=== PATIENT | male | born 1940 | race Caucasian/White ===

== ENCOUNTER → 2019-12-19 11:16 | Outpatient (BNVA) | payer MEDICARE, SELFPAY | PROVIDERS: Visit Provider Urology | DX: N40.1 Benign prostatic hyperplasia with lower urinary tract symptoms (principal); R39.15 Urgency of urination; Z79.899 Other long term (current) drug therapy | CPT/HCPCS: 51798; 99204 ==

== ENCOUNTER 2020-02-07 10:53 | Inpatient (IN) | payer MEDICARE, SELFPAY ==
[2020-02-07] VITALS (10 sets, daily range): BP systolic 104–126; BP diastolic 56–69; PULSE 88–109; RESP 16–20; TEMP 36.3–36.9; O2SAT 97–98; BMI 24.0
--- NOTE | 2020-02-07 | ECG_ITS ---
Test Reason : CHEST PAIN Blood Pressure : / mmHG Vent. Rate : 109 BPM Atrial Rate : 109 BPM P-R Int : 132 ms QRS Dur : 132 ms QT Int : 362 ms P-R-T Axes : 050 -31 096 degrees QTc Int : 487 ms Sinus tachycardia Left axis deviation Left ventricular hypertrophy with QRS widening and repolarization abnormality Abnormal ECG When compared with ECG of 15-NOV-2018 15:11, No significant change was found Referred By: Liv Kirby Electronically Signed By:COLE KINNEY MD
--- NOTE | 2020-02-07 11:04 | XR_ITS ---
EXAMINATION: XR CHEST CLINICAL INFORMATION: COVID symptoms. COMPARISON: 09/20/2019 chest radiographs. TECHNIQUE: Frontal view of the chest was obtained. FINDINGS: Low lung volumes limit evaluation. Increased markings are seen in the mid and lower lung mina. The heart and mediastinal structures are unremarkable. XR/XR chest 1V IMPRESSION: Regional increased markings in the mid and lower lung mina are nonspecific. This could represent atelectasis and/or infiltrates.
--- NOTE | 2020-02-07 11:34 | CT_ITS ---
EXAMINATION: CT HEAD WITHOUT CONTRAST CLINICAL INFORMATION: Fall. Confusion. COMPARISON: Previous head CT November 2018 TECHNIQUE: Contiguous axial imaging was performed from the skull base to vertex without intravenous administration of contrast. This CT examination was performed using dose optimization techniques as appropriate, variously including the following: *Automated exposure control *Adjustment of mA and/or kV according to patient size (this includes techniques or standardized protocols for targeted exams where dose is matched to indication/reason for exam; i.e. extremities or head) *Use of iterative reconstruction technique DLP: 671 mGy-cm FINDINGS: There is no evidence of an extra-axial collection. There is no evidence of intra-axial or extra-axial hemorrhage. The ventricles and extra-axial CSF spaces are prominent suggestive of generalized atrophy. There is nonspecific periventricular white matter disease. No mass, mass effect or infarct is seen. No skull fracture is seen. Visualized paranasal sinuses, mastoid air cells and middle ears are clear. CT/CT head/brain wo con IMPRESSION: No acute findings. Generalized atrophy and nonspecific periventricular white matter disease.
--- NOTE | 2020-02-07 11:45 | ED.GENADULT ---
HPI - General Adult General Chief complaint: General Medical Stated complaint: covid symptoms Time Seen by Provider: 02/07/20 11:04 Source: patient Mode of arrival: ambulatory Limitations: language barrier and altered mental status History of Present Illness HPI narrative: 79 y/o male with history of BPH, HTN, and GERD presenting from home with generalized fatigue and dizziness for the last 2 days. History obtained with nursing staff development coordinator but was limited due to patient being unreliable and answering questions differently when asked twice. He states his [employer]ANT [employer]ER sent him to the hospital today because I was off and not acting like myself. He reports generalized weakness and admits to significant decreased PO intake.He reports having a fall two weeks ago and an episode of black vomitus 2 weeks ago. Denies abdominal pain, fever, chills, chest pain, SOB, urinary symptoms. MD complaint: fatigue Related Data Home Medications Medication Instructions Recorded Confirmed acetaminophen 500 mg tablet 1,000 mg PO Q6H PRN 12/14/19 albuterol sulfate mg INHALATION 12/14/19 albuterol sulfate 90 mcg/actuation 2 puff PO Q4-6H PRN 12/14/19 aerosol inhaler atorvastatin 20 mg tablet 20 mg PO DAILY 12/14/19 azithromycin 250 mg tablet mg PO DIRECTED 12/14/19 benztropine 0.5 mg tablet 0 mg PO 12/14/19 buprenorphine 2 mg-naloxone 0.5 mg 2 mg SUBLINGUAL DAILY 12/14/19 sublingual film buprenorphine 8 mg-naloxone 2 mg 20 mg SUBLINGUAL DAILY 12/14/19 sublingual film cyanocobalamin (vitamin B-12) 1,000 mcg PO DAILY 12/14/19 1,000 mcg tablet docusate sodium 100 mg capsule 100 mg PO BID 12/14/19 fluticasone 250 mcg-salmeterol 50 1 ea INHALATION Q12H 12/14/19 mcg/dose blistr powdr for inhalation haloperidol lactate 2 mg/mL oral mg PO 12/14/19 concentrate multivitamin 1 tab PO DAILY 12/14/19 naloxone 4 mg/actuation nasal spray 0 spray INTRANASAL 12/14/19 omeprazole 40 mg capsule,delayed 40 mg PO DAILY 12/14/19 release prednisone 20 mg tablet 20 mg PO BID 12/14/19 prednisone 50 mg tablet 50 mg PO DAILY 12/14/19 quetiapine 100 mg tablet 300 mg PO Q OTHER DAY PRN 12/14/19 quetiapine 50 mg tablet 0 mg PO 12/14/19 sertraline 100 mg tablet 0 mg PO 12/14/19 tamsulosin 0.4 mg capsule 0.4 mg PO DAILY 12/14/19 trazodone 100 mg tablet 100 mg PO BEDTIME 12/14/19 umeclidinium 62.5 mcg/actuation 0 inh INHALATION 12/14/19 blister powder for inhalation Previous Rx's Medication Instructions Recorded oxybutynin chloride 5 mg 5 mg PO DAILY 30 Days #30 tab 12/31/19 tablet,extended release 24 hr Allergies Allergy/AdvReac Type Severity Reaction Status Date / Time No Known Allergies Allergy Unverified 11/28/19 15:33 Review of Systems Review of Systems: Constitutional: No Fever, No Chills ENT/Mouth: No sore throat, No Rhinorrhea, No Swallowing Difficulty Eyes: No Eye Pain, No Swelling, No Redness Cardiovascular: No Chest Pain, No SOB, No Orthopnea, No Edema Respiratory: + Cough, No Sputum, No Wheezing, No dyspnea Gastrointestinal: No Nausea, + Vomiting, No Diarrhea, No abdominal Pain Genitourinary: No Dysuria, No Urinary Frequency, No Hematuria Musculoskeletal: No joint pain, + Myalgias Skin: No Skin Lesions, No rash Neuro: + Weakness, No Numbness, + Dizziness, No Headache Psych: No Anxiety/Panic, No Depression Heme/Lymph: No Bruising, No Lymphadenopathy Endocrine: No Polyuria, No Polydipsia PMFSH Past Medical History Attestation statement: The following information was validated with the patient. Medical History GERD (gastroesophageal reflux disease) HTN (hypertension) Surgical History History of prostate biopsy Family History Family History (Updated 12/14/19 @ 11:38 by ROB Rodriguez) Father No problems noted. Mother No problems noted. Social History Social History Alcohol intake: never Smoking Status: Current some day smoker Use of substances other than those prescribed or required for medical reasons: No Advance Directives: No Advance Directives Information Provided: No Physical Exam Vital Signs: Vital Signs: Last Vital Signs Temp 98.3 F 02/07/20 15:31 Pulse 92 02/07/20 15:31 Resp 18 02/07/20 15:31 BP 104/56 L 02/07/20 15:31 Pulse Ox 97 02/07/20 15:31 Body Mass Index 24.0 Appearance: Alert, frail elderly male, cachetic with temporal wasting. Jaundiced. No acute distress. Eyes: Pupils equal, round and reactive to light. Bilateral scleral icterus ENT: dry mucus membranes, tongue extremely dry Neck: supraclavicular cachexia, Neck supple. CVS: tachycardic, regular rhythm. Pulses normal. Respiratory: No respiratory distress. Breath sounds normal. Chest wall frail. Abdomen: Softly distended, guarding however nontender. +BS x4. hepatomegaly Skin: Skin warm and dry. Jaundiced skin color. Extremities: No lower extremity edema. Neuro: Oriented X 2. generalized weakness, non-focal. tongue deviates to the right. Course Course Course Narrative: 79 y/o male presenting with painless jaundice highly concerning for biliary or pancreatic tumor. He is tachycardic on arrival, afebrile and does not appear septic. Low suspicion for cholangitis. Given he is a very poor historian, will proceed with CT head, CT abd/pelvis as well as full metabolic workup. Reevaluation(s) Reevaluation #1: Labs show elevation in all LFT's consistent with obstructive picture. Concern for underlying malignancy. CT scan still pending. Orthostatics negative. Given 2L IVF for signs of dehydration on exam. Continues to deny pain. Will require admission. Reevaluation #2: CT scan shows 1. Cholelithiasis. Intrahepatic and extrahepatic ductal dilatation, common duct 1.4 cm. No visible ductal calculus. Trace pericholecystic fluid. 1 cm [place] hepatis node. 2. Atrophic pancreas. No pancreatic ductal distention. 3. Enlarged nodular prostate. 4. 6 cm sliding hiatal hernia. Small bilateral renal cysts, largest 2.2 cm. Doubt gallstones causing obstruction given no pain. He will require further evaluation with either abd U/S or more likely ERCP vs MRCP. Spoke with Dr. Berger from GI who is going to review the case and make recommendations. Spoke with hospitalist who will admit. Medical Decision Making Lab Data Result diagrams: 02/07/20 11:43 02/07/20 11:43 Labs: Lab Results 02/07/20 02/07/20 02/07/20 Range/Units 11:43 11:43 11:43 WBC 8.2 (4.8-10.8) X10*3/uL RBC 4.11 L (4.60-5.80) X10*6/uL Hgb 11.8 L (14.0-18.0) g/dl Hct 34.5 L (42-52) % MCV 83.9 (80-98) fL MCH 28.7 (27.0-33.0) pg MCHC 34.2 (31.0-36.0) g/dl RDW 16.0 (11.0-16.0) % Plt Count 197 (160-400) X10*3/uL MPV 11.7 (9.4-12.4) fL Immature Gran % (Auto) 1.6 H (0.0-0.4) % Neut % (Auto) 77.4 H (45-73) % Lymph % (Auto) 12.1 L (20-40) % [place] % (Auto) 6.9 (2-11) % Eos % (Auto) 2.0 (0-4) % Baso % (Auto) 0.0 (0-2) % Lymph # (Auto) 1.0 L (1.2-4.9) X10*3/uL [place] # (Auto) 0.6 (0.1-1.2) X10*3/uL Eos # (Auto) 0.2 (0.0-0.4) X10*3/uL Baso # (Auto) 0.0 (0.0-0.2) X10*3/uL Abs Immat Gran (auto) 0.13 H (0.00-0.03) X10*3/uL Absolute Neuts (auto) 6.3 (2.0-8.3) X10*3/uL Absolute Nucleated RBC 0.000 (0.0-0.012) X10*3/uL Nucleated RBC % (auto) 0.0 (0.0-0.2) /100WBC PT (10.8-13.0) SEC INR (0.9-1.1) APTT (24.1-38.0) SEC Hold Blue Top SEE NOTE Sodium (135-145) mmol/L Potassium (3.3-5.1) mmol/l Chloride (96-108) mmol/L Carbon Dioxide (22-29) mmol/L Anion Gap (12-20) BUN (9-16) mg/dL Creatinine (0.5-1.4) mg/dL Estim Creat Clear Calc Estimated GFR Random Glucose (60-115) mg/dL Lactic Acid (0.5-2.0) mmol/L Calcium (8.4-10.2) mg/dL Magnesium (1.6-2.6) mg/dL Total Bilirubin (0.0-1.0) mg/dL Direct Bilirubin (0.0-0.5) mg/dL AST (5-37) U/L ALT (0-40) U/L Alkaline Phosphatase (39-117) U/L Troponin I High Sens (<3.5-35.0) ng/L Total Protein (6.5-8.0) g/dL Albumin (3.5-5.0) g/dL Coronavirus (PCR) NEGATIVE (Negative) Influenza Type A (PCR) NEGATIVE (Negative) Influenza Type B (PCR) NEGATIVE (Negative) RSV RNA Qual (PCR) NEGATIVE (Negative) 02/07/20 02/07/20 02/07/20 Range/Units 11:43 11:43 11:43 WBC (4.8-10.8) X10*3/uL RBC (4.60-5.80) X10*6/uL Hgb (14.0-18.0) g/dl Hct (42-52) % MCV (80-98) fL MCH (27.0-33.0) pg MCHC (31.0-36.0) g/dl RDW (11.0-16.0) % Plt Count (160-400) X10*3/uL MPV (9.4-12.4) fL Immature Gran % (Auto) (0.0-0.4) % Neut % (Auto) (45-73) % Lymph % (Auto) (20-40) % [place] % (Auto) (2-11) % Eos % (Auto) (0-4) % Baso % (Auto) (0-2) % Lymph # (Auto) (1.2-4.9) X10*3/uL [place] # (Auto) (0.1-1.2) X10*3/uL Eos # (Auto) (0.0-0.4) X10*3/uL Baso # (Auto) (0.0-0.2) X10*3/uL Abs Immat Gran (auto) (0.00-0.03) X10*3/uL Absolute Neuts (auto) (2.0-8.3) X10*3/uL Absolute Nucleated RBC (0.0-0.012) X10*3/uL Nucleated RBC % (auto) (0.0-0.2) /100WBC PT 19.5 H (10.8-13.0) SEC INR 1.6 H (0.9-1.1) APTT 38.4 H (24.1-38.0) SEC Hold Blue Top Sodium 131 L (135-145) mmol/L Potassium 4.2 (3.3-5.1) mmol/l Chloride 98 (96-108) mmol/L Carbon Dioxide 20 L (22-29) mmol/L Anion Gap 17 (12-20) BUN 24 H (9-16) mg/dL Creatinine 1.05 (0.5-1.4) mg/dL Estim Creat Clear Calc 45.9 Estimated GFR > 60 Random Glucose 94 (60-115) mg/dL Lactic Acid 0.9 (0.5-2.0) mmol/L Calcium 8.3 L (8.4-10.2) mg/dL Magnesium 2.1 (1.6-2.6) mg/dL Total Bilirubin 10.9 H (0.0-1.0) mg/dL Direct Bilirubin 8.4 H (0.0-0.5) mg/dL AST 83 H (5-37) U/L ALT 49 H (0-40) U/L Alkaline Phosphatase 670 H (39-117) U/L Troponin I High Sens (<3.5-35.0) ng/L Total Protein 5.7 L (6.5-8.0) g/dL Albumin 2.9 L (3.5-5.0) g/dL Coronavirus (PCR) (Negative) Influenza Type A (PCR) (Negative) Influenza Type B (PCR) (Negative) RSV RNA Qual (PCR) (Negative) 11/27/20 Range/Units 11:43 WBC (4.8-10.8) X10*3/uL RBC (4.60-5.80) X10*6/uL Hgb (14.0-18.0) g/dl Hct (42-52) % MCV (80-98) fL MCH (27.0-33.0) pg MCHC (31.0-36.0) g/dl RDW (11.0-16.0) % Plt Count (160-400) X10*3/uL MPV (9.4-12.4) fL Immature Gran % (Auto) (0.0-0.4) % Neut % (Auto) (45-73) % Lymph % (Auto) (20-40) % [place] % (Auto) (2-11) % Eos % (Auto) (0-4) % Baso % (Auto) (0-2) % Lymph # (Auto) (1.2-4.9) X10*3/uL [place] # (Auto) (0.1-1.2) X10*3/uL Eos # (Auto) (0.0-0.4) X10*3/uL Baso # (Auto) (0.0-0.2) X10*3/uL Abs Immat Gran (auto) (0.00-0.03) X10*3/uL Absolute Neuts (auto) (2.0-8.3) X10*3/uL Absolute Nucleated RBC (0.0-0.012) X10*3/uL Nucleated RBC % (auto) (0.0-0.2) /100WBC PT (10.8-13.0) SEC INR (0.9-1.1) APTT (24.1-38.0) SEC Hold Blue Top Sodium (135-145) mmol/L Potassium (3.3-5.1) mmol/l Chloride (96-108) mmol/L Carbon Dioxide (22-29) mmol/L Anion Gap (12-20) BUN (9-16) mg/dL Creatinine (0.5-1.4) mg/dL Estim Creat Clear Calc Estimated GFR Random Glucose (60-115) mg/dL Lactic Acid (0.5-2.0) mmol/L Calcium (8.4-10.2) mg/dL Magnesium (1.6-2.6) mg/dL Total Bilirubin (0.0-1.0) mg/dL Direct Bilirubin (0.0-0.5) mg/dL AST (5-37) U/L ALT (0-40) U/L Alkaline Phosphatase (39-117) U/L Troponin I High Sens < 3.5 (<3.5-35.0) ng/L Total Protein (6.5-8.0) g/dL Albumin (3.5-5.0) g/dL Coronavirus (PCR) (Negative) Influenza Type A (PCR) (Negative) Influenza Type B (PCR) (Negative) RSV RNA Qual (PCR) (Negative) ECG Data Attestation: I personally reviewed and interpreted this ECG as follows: Interpretation: HR 109, sinus tachycardia, normal [place] interval, normal QTc Discharge Plan Discharge Clinical Impression: Painless jaundice Patient Disposition: Admitted As Inpatient
[2020-02-07] MEDS: 0.9 % Sodium Chloride 1,000 ML 999 ML IVCONT ×2 (11:48→14:20)
--- NOTE | 2020-02-07 11:48 | PC.NURSE ---
iv inserted, labs, drawn, ekg performed, campus monitor applied, nsr-sinus tach 90s-100, pt skin/eyes jaundice, covid swab performed, will continue to monitor.
[2020-02-07 11:58] LABS: MANUAL DIFF FLAG NO
[2020-02-07 12:01] LABS: Eosinophils Absolute Auto 0.2 X10*3/uL (0.0-0.4); Hematocrit 34.5 % (42-52); Hemoglobin 11.8 g/dl (14.0-18.0); Imm Gran Abs Auto 0.13 X10*3/uL (0.00-0.03); Imm Gran Pct Auto 1.6 % (0.0-0.4); Lymphocytes Percent Auto 12.1 % (20-40); Mean Corpuscular HGB Conc 34.2 g/dl (31.0-36.0); Mean Corpuscular Hemoglobin 28.7 pg (27.0-33.0); Mean Corpuscular Volume 83.9 fL (80-98); Mean Platelet Volume 11.7 fL (9.4-12.4); Monocytes Absolute Auto 0.6 X10*3/uL (0.1-1.2); Monocytes Percent Auto 6.9 % (2-11); Neutrophils Absolute Auto 6.3 X10*3/uL (2.0-8.3); Neutrophils Percent Auto 77.4 % (45-73); Platelet Count 197 X10*3/uL (160-400); Red Blood Count 4.11 X10*6/uL (4.60-5.80); White Blood Count 8.2 X10*3/uL (4.8-10.8)
[2020-02-07 12:03] LABS: INTERNATIONAL NORM RATIO 1.6 (0.9-1.1); Prothrombin Time 19.5 SEC (10.8-13.0)
[2020-02-07 12:06] LABS: Partial Thromboplastin Time 38.4 SEC (24.1-38.0)
[2020-02-07 12:15] LABS: Lactic Acid 0.9 mmol/L (0.5-2.0)
[2020-02-07 12:22] LABS: Alanine Aminotransferase 49 U/L (0-40); Albumin Level 2.9 g/dL (3.5-5.0); Alkaline Phosphatase 670 U/L (39-117); Anion Gap 17 (12-20); Aspartate Amino Transferase 83 U/L (5-37); Bilirubin Direct 8.4 mg/dL (0.0-0.5); Bilirubin Total 10.9 mg/dL (0.0-1.0); Blood Urea Nitrogen 24 mg/dL (9-16); Calcium 8.3 mg/dL (8.4-10.2); Carbon Dioxide 20 mmol/L (22-29); Chloride 98 mmol/L (96-108); Creatinine Clr Calc Pharmacy 45.9; Estimated Glomerular Filt Rate > 60; Glucose Random 94 mg/dL (60-115); Magnesium 2.1 mg/dL (1.6-2.6); Potassium 4.2 mmol/l (3.3-5.1); Sodium 131 mmol/L (135-145); Total Protein 5.7 g/dL (6.5-8.0)
[2020-02-07 12:26] LABS: Troponin-I High Sensitivity < 3.5 ng/L (<3.5-35.0)
[2020-02-07 12:55] LABS: Influenza A PCR NEGATIVE (Negative); Influenza B PCR NEGATIVE (Negative); Resp Syncy Virus RNA Qual PCR NEGATIVE (Negative); SARS COV2 PCR INHOUSE NEGATIVE (Negative)
--- NOTE | 2020-02-07 13:48 | CT_ITS ---
EXAMINATION: CT ABDOMEN AND PELVIS WITH CONTRAST CLINICAL INFORMATION: Pain left jaundice COMPARISON: CT abdomen and pelvis noncontrast 08/16/2018 TECHNIQUE: Multidetector volumetric images were obtained from the superior aspect of the liver through the pubic symphysis following administration 85 mL of Omnipaque 350 intravenous contrast. Sagittal and coronal reformatted images were obtained on the technologist's workstation. Oral contrast: No This CT examination was performed using dose optimization techniques as appropriate, variously including the following: *Automated exposure control *Adjustment of mA and/or kV according to patient size (this includes techniques or standardized protocols for targeted exams where dose is matched to indication/reason for exam; i.e. extremities or head) *Use of iterative reconstruction technique DLP: 464 mGy-cm FINDINGS: LUNG BASES: There is mild accentuated subpleural reticular markings. Disc atelectasis left anterolateral base. No airspace consolidation or effusion. LIVER, GALLBLADDER, AND BILIARY TREE: The liver is normal in size and smooth in contour and uniform in parenchymal attenuation. There is no hepatic parenchymal lesion. The gallbladder is mildly dilated, measuring 5.3 cm in diameter. There is no focal wall thickening. At least 4 gallstones are present, largest 1.3 cm. There is some trace pericholecystic fluid between the gallbladder and liver. There is intrahepatic and extrahepatic biliary ductal dilatation. The common duct measures 1.4 cm in caliber. There is no visible ductal calculus, stricture, extrinsic compression, or duct displacement. PANCREAS: Atrophic pancreas. No pancreatic ductal distention. No peripancreatic inflammatory changes. SPLEEN: Normal in size and homogeneous. There are 2 splenules left upper quadrant again seen, larger only 1.2 cm. ADRENAL GLANDS: Unremarkable. KIDNEYS AND URETERS: No hydronephrosis, hydroureter, calculi, or perinephric stranding. The kidneys are normal in size and enhance symmetrically. Again, there are scattered bilateral renal cysts, largest left lower pole, 2.2 cm and water attenuation, -1 HU. BLADDER: Unremarkable. GASTROINTESTINAL TRACT: 6 cm sliding hiatal hernia. Moderate stool throughout the colon. No bowel obstruction or focal inflammatory changes in the bowel or mesentery. Trace fluid between gallbladder and liver. Otherwise no ascites. ABDOMINAL WALL: No significant hernia is appreciated. LYMPH NODES: 1 cm [place] hepatis node adjacent to anterior aspect gallbladder, series 8 image 22 no retroperitoneal or pelvic lymphadenopathy. VASCULAR: Unremarkable. PELVIC VISCERA: Enlarged nodular prostate measuring approximately 6.7 x 5.9 x 6.9 cm with uplifting bladder base. Seminal vesicles unremarkable. OSSEOUS STRUCTURES: Unremarkable. CT/CT abdomen pelvis w con IMPRESSION: 1. Cholelithiasis. Intrahepatic and extrahepatic ductal dilatation, common duct 1.4 cm. No visible ductal calculus. Trace pericholecystic fluid. 1 cm [place] hepatis node. 2. Atrophic pancreas. No pancreatic ductal distention. 3. Enlarged nodular prostate. 4. 6 cm sliding hiatal hernia. Small bilateral renal cysts, largest 2.2 cm.
--- NOTE | 2020-02-07 14:18 | PC.NURSE ---
patient alert, hat and cap opener ns/st 90-110, vitals stable, orthostats performed, ivf to run per order, will continue to monitor.
--- NOTE | 2020-02-07 14:21 | PC.NURSE ---
pt to [facility] [place] ct scan
[2020-02-07] MEDS: iohexoL 350 MG/ML 100 ML INFUS..BTL IV (14:48)
--- NOTE | 2020-02-07 15:33 | PC.NURSE ---
patient awake/alert, vehicle monitor technician nsr 90s, vss, will continue to monitor.
[2020-02-07 17:08] LABS: Glucose Urine UA NEG (NEG); Leukocyte Esterase Urine NEG (NEG); Nitrite Urine NEG (NEG); PH 6.5 (5.0-8.0); Specific Gravity - Urine <= 1.005 (1.005-1.025); Urine Blood TRACE (NEG); Urine Ketones 5 MG/DL (NEG); Urine Protein NEG (NEG-TRACE)
--- NOTE | 2020-02-07 17:15 | P.HPHOSP_ITS ---
History of Present Illness Date of Service: 02/07/20 <YUNIOR Hylton - Last Filed: 02/07/20 18:29> Chief Complaint: weakness <YUNIOR Hylton - Last Filed: 02/07/20 18:29> this is a 79-year-old Uzbek-speaking male who presented to the emergency department with complaints of weakness. The triage note indicates he reported being tired and weak. He initially stated that he had fallen 2 weeks prior as well. Then said he fell yesterday and again changed his story and said that he did not fall at all. In general the patient is a vague historian. During my evaluation he reported no pain, weakness or any other symptoms. He was noted to be jaundiced but could not tell how long that has been going on. He did report dark urine for the past 1 week. For this reason he had called his primary care physician who reportedly prescribed a medication but he cannot recall the medication name or what it was for. workup in the emergency department revealed markedly elevated LFTs with total bilirubin 10.9, direct bilirubin 8.4, alkaline phosphatase 670, AST 83, ALT 49. Previous LFTs from [address] scan of the abdomen showed cholelithiasis, intrahepatic and extrahepatic ductal dilatation. Gi recommended admission and MRCP for further evaluation. <YUNIOR Hylton - Last Filed: 02/07/20 18:29> Review of Systems Review of Systems: Yes all other systems are reviewed and are negative <YUNIOR Hylton Last Filed: 02/07/20 18:29> Constitutional: Constitutional: Denies chills and Denies fever(s) <YUNIOR Hylton Last Filed: 02/07/20 18:29> Cardiovascular: Cardiovascular: Denies chest pain and Denies dyspnea <YUNIOR Hylton Last Filed: 02/07/20 18:29> Respiratory: Respiratory: Denies cough and Denies dyspnea <YUNIOR Hylton Last Filed: 02/07/20 18:29> Gastrointestinal: Gastrointestinal: Denies abdominal pain, Denies diarrhea, Denies nausea and Denies vomiting <YUNIOR Hylton Last Filed: 02/07/20 18:29> FORMERLY [facility], [facility] Medical History: Medical History Asthma Depression Esophagitis Gallstones Gastritis GERD (gastroesophageal reflux disease) HTN (hypertension) Smoker Substance abuse <YUNIOR Hylton - Last Filed: 02/07/20 18:29> Functional capacity: uses cane/walker <YUNIOR Hylton - Last Filed: 02/07/20 18:29> Family History: Family History Father No problems noted. Mother No problems noted. <YUNIOR Hylton - Last Filed: 02/07/20 18:29> Pertinent family history: HTN <YUNIOR Hylton - Last Filed: 02/07/20 18:29> Surgical History: Surgical History History of prostate biopsy <YUNIOR Hylton - Last Filed: 02/07/20 18:29> Social History: Social History Household Members: None Housing: House Alcohol intake: never Smoking Status: Current some day smoker Tobacco Type: Cigarette Second Hand Smoke Exposure: Yes service: No Current occupational status: unemployed <YUNIOR Hylton - Last Filed: 02/07/20 18:29> Meds Allergies/Adverse reactions: Allergies Allergy/AdvReac Type Severity Reaction Status Date / Time No Known Allergies Allergy Unverified 11/28/19 15:33 <YUNIOR Hylton - Last Filed: 02/07/20 18:29> Home medications: Home Medications Medication Instructions Recorded Confirmed Type albuterol sulfate 2.5 mg INHALATION QID PRN 12/14/19 02/07/20 History albuterol sulfate 90 mcg/actuation 2 puff PO Q4-6H PRN 12/14/19 02/07/20 History aerosol inhaler atorvastatin 20 mg tablet 20 mg PO DAILY 12/14/19 02/07/20 History benztropine 0.5 mg tablet 0.5 mg PO BEDTIME 12/14/19 02/07/20 History buprenorphine 8 mg-naloxone 2 mg 2 film SUBLINGUAL DAILY 12/14/19 02/07/20 History sublingual film cyanocobalamin (vitamin B-12) 1,000 mcg PO DAILY 12/14/19 02/07/20 History 1,000 mcg tablet docusate sodium 100 mg capsule 100 mg PO BID 12/14/19 02/07/20 History fluticasone 250 mcg-salmeterol 50 1 ea INHALATION Q12H 12/14/19 02/07/20 History mcg/dose blistr powdr for inhalation haloperidol lactate 2 mg/mL oral 1 mg PO BEDTIME 12/14/19 02/07/20 History concentrate multivitamin 1 tab PO DAILY 12/14/19 02/07/20 History naloxone 4 mg/actuation nasal spray 1 spray INTRANASAL ONCE PRN 12/14/19 02/07/20 History omeprazole 40 mg capsule,delayed 40 mg PO DAILY 12/14/19 02/07/20 History release quetiapine 100 mg tablet 150 mg PO BEDTIME 12/14/19 02/07/20 History quetiapine 50 mg tablet 50 mg PO BID@0900,1700 12/14/19 02/07/20 History sertraline 100 mg tablet 100 mg PO DAILY 12/14/19 02/07/20 History tamsulosin 0.4 mg capsule 0.4 mg PO DAILY 12/14/19 02/07/20 History trazodone 100 mg tablet 100 mg PO BEDTIME 12/14/19 02/07/20 History umeclidinium 62.5 mcg/actuation 1 inh INHALATION DAILY 12/14/19 02/07/20 History blister powder for inhalation <YUNIOR Hylton - Last Filed: 02/07/20 18:29> Physical Exam Vital Signs and Narrative: Vital Signs: Last Vital Signs Temp 98.3 F 02/07/20 15:31 Pulse 92 02/07/20 15:31 Resp 18 02/07/20 15:31 BP 104/56 L 02/07/20 15:31 Pulse Ox 97 02/07/20 15:31 Body Mass Index 24.0 <YUNIOR Hylton - Last Filed: 02/07/20 18:29> Const: Nutritional Appearance: well nourished <YUNIOR Hylton - Last Filed: 02/07/20 18:29> Orientation/consciousness: patient oriented x3 <YUNIOR Hylton - Last Filed: 02/07/20 18:29> HENMT: Head: Yes normocephalic and Yes atraumatic <YUNIOR Hylton - Last Filed: 02/07/20 18:29> Eyes: Other: scleral icterus <YUNIOR Hylton - Last Filed: 02/07/20 18:29> Chest: Chest palpation & inspection: normal inspection of the chest <YUNIOR Hylton - Last Filed: 02/07/20 18:29> Resp: Effort & Inspection: normal respiratory effort and no respiratory distress <YUNIOR Hylton - Last Filed: 02/07/20 18:29> Auscultation: clear to auscultation bilaterally <YUNIOR Hylton - Last Filed: 02/07/20 18:29> Cardio: Rate: regular rate <YUNIOR Hylton - Last Filed: 02/07/20 18:29> Rhythm: regular rhythm <YUNIOR Hylton - Last Filed: 02/07/20 18:29> GI: Palpation (GI): Soft to palpation and nontender <YUNIOR Hylton - Last Filed: 02/07/20 18:29> Skin: General skin exam: jaundice <YUNIOR Hylton - Last Filed: 02/07/20 18:29> Neuro: General: patient oriented x3 <YUNIOR Hylton - Last Filed: 02/07/20 18:29> Cranial nerves: Yes CN's II-XII intact bilaterally and Yes Bilaterally intact EOM present <YUNIOR Hytlon - Last Filed: 02/07/20 18:29> Extrem: General: Yes normal to inspection <YUNIOR Hylton - Last Filed: 02/07/20 18:29> Results Labs CBC and Chem 7: : 02/10/20 06:07 02/12/20 06:17 <YUNIOR Hylton - Last Filed: 02/07/20 18:29> Labs: Laboratory Results - last 24 hr 02/07/20 02/07/20 02/07/20 11:43 11:43 11:43 MCV 83.9 MCH 28.7 MCHC 34.2 RDW 16.0 Plt Count 197 MPV 11.7 Immature Gran % (Auto) 1.6 H Neut % (Auto) 77.4 H Lymph % (Auto) 12.1 L Livingston % (Auto) 6.9 Eos % (Auto) 2.0 Baso % (Auto) 0.0 Lymph # (Auto) 1.0 L Livingston # (Auto) 0.6 Eos # (Auto) 0.2 Baso # (Auto) 0.0 Abs Immat Gran (auto) 0.13 H Absolute Neuts (auto) 6.3 Absolute Nucleated RBC 0.000 Nucleated RBC % (auto) 0.0 PT INR APTT Hold Blue Top SEE NOTE Anion Gap Estim Creat Clear Calc Estimated GFR Random Glucose Lactic Acid Calcium Magnesium Total Bilirubin Direct Bilirubin AST ALT Alkaline Phosphatase Troponin I High Sens Total Protein Albumin Coronavirus (PCR) NEGATIVE Influenza Type A (PCR) NEGATIVE Influenza Type B (PCR) NEGATIVE RSV RNA Qual (PCR) NEGATIVE 02/07/20 02/07/20 02/07/20 11:43 11:43 11:43 MCV MCH MCHC RDW Plt Count MPV Immature Gran % (Auto) Neut % (Auto) Lymph % (Auto) Livingston % (Auto) Eos % (Auto) Baso % (Auto) Lymph # (Auto) Livingston # (Auto) Eos # (Auto) Baso # (Auto) Abs Immat Gran (auto) Absolute Neuts (auto) Absolute Nucleated RBC Nucleated RBC % (auto) PT 19.5 H INR 1.6 H APTT 38.4 H Hold Blue Top Anion Gap 17 Estim Creat Clear Calc 45.9 Estimated GFR > 60 Random Glucose 94 Lactic Acid 0.9 Calcium 8.3 L Magnesium 2.1 Total Bilirubin 10.9 H Direct Bilirubin 8.4 H AST 83 H ALT 49 H Alkaline Phosphatase 670 H Troponin I High Sens Total Protein 5.7 L Albumin 2.9 L Coronavirus (PCR) Influenza Type A (PCR) Influenza Type B (PCR) RSV RNA Qual (PCR) 02/07/20 11:43 MCV MCH MCHC RDW Plt Count MPV Immature Gran % (Auto) Neut % (Auto) Lymph % (Auto) Livingston % (Auto) Eos % (Auto) Baso % (Auto) Lymph # (Auto) Livingston # (Auto) Eos # (Auto) Baso # (Auto) Abs Immat Gran (auto) Absolute Neuts (auto) Absolute Nucleated RBC Nucleated RBC % (auto) PT INR APTT Hold Blue Top Anion Gap Estim Creat Clear Calc Estimated GFR Random Glucose Lactic Acid Calcium Magnesium Total Bilirubin Direct Bilirubin AST ALT Alkaline Phosphatase Troponin I High Sens < 3.5 Total Protein Albumin Coronavirus (PCR) Influenza Type A (PCR) Influenza Type B (PCR) RSV RNA Qual (PCR) <YUNIOR Hylton - Last Filed: 02/07/20 18:29> Imaging Radiologist's Impressions: Impressions Chest X-Ray 02/07/20 11:04 IMPRESSION: Regional increased markings in the mid and lower lung mina are nonspecific. This could represent atelectasis and/or infiltrates. Head CT 02/07/20 11:34 IMPRESSION: No acute findings. Generalized atrophy and nonspecific periventricular white matter disease. Abdomen/Pelvis CT 02/07/20 13:48 IMPRESSION: 1. Cholelithiasis. Intrahepatic and extrahepatic ductal dilatation, common duct 1.4 cm. No visible ductal calculus. Trace pericholecystic fluid. 1 cm botson hepatis node. 2. Atrophic pancreas. No pancreatic ductal distention. 3. Enlarged nodular prostate. 4. 6 cm sliding hiatal hernia. Small bilateral renal cysts, largest 2.2 cm. <YUNIOR Hylton - Last Filed: 02/07/20 18:29> Assessment and Plan (1) Obstructive jaundice: Status: Acute <YUNIOR Hylton - Last Filed: 02/07/20 18:29> this is a 79-year-old Uzbek-speaking male with history of substance abuse, acid reflux who presents to the emergency department with weakness found to have obstructive jaundice obstructive jaundice Cholelithiasis. Intrahepatic and extrahepatic ductal dilatation, common duct 1.4 cm. No visable ductal stone. MRCP for further characterization GI consult follow LFTs DVT ppx - lovenox code status - full code This case was discussed with Dr. Richter <YUNIOR Hytlon - Last Filed: 02/07/20 18:29>
[2020-02-07 17:21] LABS: Appearance Urine CLEAR; Color Urine AMBER
[2020-02-07 17:22] LABS: Bacteria Urine TRACE /LPF; RBC Urine 0-2 /HPF (0); Squamous Epithelial Cell Urine TRACE /LPF; WBC Urine 0-2 /HPF (0-4)
--- NOTE | 2020-02-07 17:43 | PC.NURSE ---
called floor to give report, nurse will call ed back shortly
--- NOTE | 2020-02-07 17:47 | PM.EVENT ---
Event Note Date of Service: 02/07/20 Event Note: Admission note The patient was seen and evaluated with YUNIOR Rdz. I agree with her note, assessment and plan with the following. in summary, a 79 years old male with PMH X of asthma, esophagitis, GERD, HTN and history of substance abuse who presents to the hospital complaining of generalized weakness and dark urine. The patient is poor historian and the story was not clear but seems like he noticed dark urine for almost a week or so associated with increased weakness. he also reported skin change to yellowish discoloration over the same. Or so. Denies any fever, chills, abdominal pain, nausea or vomiting or dark stools. Obstructive jaundice Bilirubin of 10, direct of almost [address] scan of the abdomen showed cholelithiasis with intra and extrahepatic duct dilatation. No clear stone seen in CBD likely secondary to obstruction, stenosis, mass To do MRCP in the morning GI evaluated in the morning Rest of evaluations by PA note.
--- NOTE | 2020-02-07 18:06 | PC.NURSE ---
report called to floor, tech to bring pt to floor
[2020-02-08] MEDS: cefTRIAXone sodium 1 GM in 0.9 % Sodium Chloride 50 ML IV ×2 (00:15→22:48)
[2020-02-08] MEDS: metroNIDAZOLE/NS 500 MG/100 ML PIGGYBACK 100 MG IV ×4 (01:15→23:41)
[2020-02-08 03:31] VITALS: BP 127/69; PULSE 83; RESP 16; TEMP 36.6; O2SAT 98
[2020-02-08 07:26] LABS: MANUAL DIFF FLAG NO
[2020-02-08 07:35] LABS: Basophils Percent Auto 0.1 % (0-2); Eosinophils Absolute Auto 0.2 X10*3/uL (0.0-0.4); Eosinophils Percent Auto 2.6 % (0-4); Hematocrit 29.5 % (42-52); Hemoglobin 10.2 g/dl (14.0-18.0); Imm Gran Abs Auto 0.09 X10*3/uL (0.00-0.03); Imm Gran Pct Auto 1.1 % (0.0-0.4); Lymphocytes Percent Auto 12.2 % (20-40); Mean Corpuscular HGB Conc 34.6 g/dl (31.0-36.0); Mean Corpuscular Hemoglobin 28.8 pg (27.0-33.0); Mean Corpuscular Volume 83.3 fL (80-98); Mean Platelet Volume 11.5 fL (9.4-12.4); Monocytes Absolute Auto 0.7 X10*3/uL (0.1-1.2); Monocytes Percent Auto 8.8 % (2-11); Neutrophils Absolute Auto 6.2 X10*3/uL (2.0-8.3); Neutrophils Percent Auto 75.2 % (45-73); Platelet Count 197 X10*3/uL (160-400); Red Blood Count 3.54 X10*6/uL (4.60-5.80); White Blood Count 8.2 X10*3/uL (4.8-10.8)
[2020-02-08 07:45] LABS: INTERNATIONAL NORM RATIO 1.5 (0.9-1.1); Prothrombin Time 17.7 SEC (10.8-13.0)
[2020-02-08] MEDS: 0.9 % Sodium Chloride Flush 3 ML SYRINGE IVFLUSH ×3 (07:47→23:41)
[2020-02-08 08:00] VITALS: BP 127/69; PULSE 80; RESP 16; TEMP 36.1; O2SAT 98
[2020-02-08 08:06] LABS: Alanine Aminotransferase 46 U/L (0-40); Albumin Level 2.4 g/dL (3.5-5.0); Alkaline Phosphatase 620 U/L (39-117); Anion Gap 12 (12-20); Aspartate Amino Transferase 92 U/L (5-37); Bilirubin Direct 5.7 mg/dL (0.0-0.5); Bilirubin Total 7.3 mg/dL (0.0-1.0); Blood Urea Nitrogen 18 mg/dL (9-16); Calcium 7.8 mg/dL (8.4-10.2); Carbon Dioxide 22 mmol/L (22-29); Chloride 106 mmol/L (96-108); Creatinine Clr Calc Pharmacy 59.5; Estimated Glomerular Filt Rate > 60; Glucose Random 104 mg/dL (60-115); Potassium 3.7 mmol/l (3.3-5.1); Sodium 136 mmol/L (135-145); Total Protein 4.6 g/dL (6.5-8.0)
--- NOTE | 2020-02-08 09:53 | MR_ITS ---
EXAMINATION: MR ABDOMEN WITHOUT CONTRAST CLINICAL INFORMATION: Obstructive jaundice. COMPARISON: CT of abdomen and pelvis from 08/16/2018 and 02/07/2020. TECHNIQUE: Noncontrast multiplanar, multisequence MR imaging examination of the abdomen was performed using the MRCP protocol on a high-field 1.5 Munira magnet. FINDINGS: LUNG BASES: No acute findings compared to 02/07/2020. No pulmonary consolidation or pleural effusion at either lung base. LIVER: Liver has normal size, contour and parenchymal signal. No cirrhotic morphology. No evidence of steatosis or mass. GALLBLADDER AND BILIARY TREE: Gallbladder is moderately distended, measuring up to 4.3 cm transverse diameter. No gallbladder wall edema or pericholecystic fluid. The intrahepatic and extrahepatic bile ducts are dilated. The ductal dilatation is new compared to 08/16/2018. Gallbladder contains a few stones. Common bile duct measures up to 1.5 cm transverse diameter. Within the pancreatic head, the pancreatic duct is dilated, measuring up to 0.6 cm. The evaluation of the distal ducts is partially limited by respiratory motion on some of the sequences. There appears to be a small, 0.6 cm stone in the distal most CBD, at its confluence with the pancreatic duct (coronal image 3 of 19, series 8). This suspected stone might be embedded within or protruding from the major papilla (axial image 12 of 19, series 6). PANCREAS: Pancreas is diffusely atrophied. No pancreatic edema or mass. SPLEEN: Normal. ADRENAL GLANDS: Normal. KIDNEYS AND URETERS: Kidneys are normal in size. No hydronephrosis or perinephric edema. Simple cysts of both kidneys, largest on the left measuring up to 1.8 cm. BOWEL AND PERITONEUM: No dilated bowel loops. No mesenteric fat stranding or ascites. Moderate-sized hiatal hernia of the stomach. VASCULATURE: Atherosclerotic abdominal aorta is normal in size. Inferior vena cava is unremarkable. LYMPH NODES: No bulky lymphadenopathy within the abdomen. Small lymph nodes in the periportal region observed on the recent CT exam are not well shown on these motion degraded images. SKELETAL: Unremarkable. MR/MR MRCP IMPRESSION: * The common duct, intrahepatic duct and distal pancreatic duct are dilated. The ductal obstruction appears to be caused by a stone at the level of the major papilla. * Cholelithiasis without imaging findings of acute cholecystitis. * No evidence of pancreatic tumor.
--- NOTE | 2020-02-08 10:19 | MHC.CM.PN ---
NURSE ADVANCED MANAGER NOTE ELECTRONIC MEDICAL RECORD REVIEWED ALONG WITH CASE DISCUSSED WITH STAFF NURSE , MET WITH PATIENT WITH [facility] ADMINISTRATOR, EXPLAINED THE ROLE OF THE NURSE ADVANCED MANAGER . PATIENT LIVES ALONE IN APARTMENTS, HE REPORTS THAT HE HAS A NURSE THAT COMES IN AND CHECKS ON HIM , HE IS NOT SURE WHICH AGENCY OR IF IT IS THE [facility] INSURANCE [facility] NURSE, HE REPORTED THAT HE HAS I HOUR QD , MONDAY THROUGH MONDAY GLUING MACHINE OPERATOR ELECTRONIC SERVICES THROUGH [employer] FOR PERSONA CARE ASSISTANCE PATIENT CAM E T THE HOSPITAL BECAUSE OF COMPLAINT OF WEAKNESS REPORTING THAT HE HAS FALLEN A COUPLE TIMES IN THE LAST TWO WEEKS, HE AMBULATES WITH A CANE AT HOME HE WAS JAUNDICE AND HAS HAD DARK COLORED URINE OVER THE PAST WEEK PER DOCUMENTATION HE WAS ADMITTED INPATIENT STATUS WITH OBSTRUCTIVE JAUNDICE, HE HAS HISTORY OF ;( DEPRESSION AND SUBSTANCE ABUSE ). PATIENT WAS EVALUATED BY THE PHYSICAL THERAPIST TODAY AND DISCHARGED FROM THEIR SERVICES -INDEPENDENT I CALLED TO HIS DAUGHTER JUMANA AND MESSAGES LEFT FOR HER TO CALL ME BACK DISCHARGE PLAN HOME WITH RESUMPTION OF HIS VNA AND GLUING MACHINE OPERATOR ELECTRONIC SERVICES I ASKED HIM IF HE THOUGHT IT WAS THE [place] [facility] HE SAID HE WAS NOT SURE MAYBE, INIATED REFERRAL TO THEM SELF RESUMPTION OF HIS GLUING MACHINE OPERATOR ELECTRONIC SERVICES WITH [employer] TRANSPORTATION FAMILY MEDICARE IMM 02/08/20 REQUESTED THAT HE HAVE FAMILY MEMBER BRING IN COPY OF HEALTH CARE PROXY PLEASE CALL HIS DAUGHTER JUMANA ROWELL [phone]
[2020-02-08 11:31] VITALS: BP 121/70; PULSE 86; RESP 16; TEMP 36.7; O2SAT 98
--- NOTE | 2020-02-08 11:35 | P.PNIM_ITS ---
Subjective Subjective Date of Service: 02/08/20 Interval History: the patient was seen and evaluated this morning Laying in bed, feels comfortable Denies any fever, chills or shortness of breath looks jaundice No reported other overnight events. Systemic review: No fever, chills or weakness No chest pain, palpitation No shortness of breath or coughing No abdominal pain, nausea or vomiting No urinary symptoms No any rash or wounds Physical Exam Vital Signs: Vital Signs: Last Vital Signs Temp 98.0 F 02/08/20 11:31 Pulse 86 02/08/20 11:31 Resp 16 02/08/20 11:31 BP 121/70 02/08/20 11:31 Pulse Ox 98 02/08/20 11:31 Body Mass Index 24.0 Constitutional : Alert, oriented, not in distress, looks jaundiced Neck : Normal inspection, Supple Cardiovascular : RRR, S1 S2, no lower extremity edema Respiratory : Good bilateral air entry, no crackles, wheezes or rhonchi Gastrointestinal: soft, lax, Normal bowel sounds, no abdominal tenderness noted on exam, no surgical signs Skin : Warm/Dry, jaundice Neurological : Alert & oriented x3, No focal deficit Objective Data Current Medications Generic Name Dose Route Start Last Admin Trade Name Freq PRN Reason Stop Dose Admin Docusate Sodium 100 mg 02/07/20 18:28 Docusate Sodium 100 Mg Capsule PO DAILY PRN Constipation Ceftriaxone Sodium 1 gm/ 50 mls @ 100 mls/hr 02/07/20 23:00 02/08/20 00:45 Sodium Chloride IV Infused Q24H HARRIS Infusion Metronidazole 500 mg in 100 mls @ 100 mls/hr 02/07/20 23:00 02/08/20 07:47 Flagyl IV Infused Q8H HARRIS Infusion Ondansetron HCl 4 mg 02/07/20 18:28 Ondansetron Hcl 4 Mg/2 Ml Vial IVPUSH Q8H PRN Nausea and Vomiting Oxybutynin Chloride 5 mg 02/08/20 09:00 02/08/20 08:12 Oxybutynin Chloride Er 5 Mg Tab.Er.24 PO 5 mg DAILY HARRIS Administration Pharmacy Consult 1 each 02/07/20 17:33 Consult Rx Perform Med Rec MISCELLANE ONCE PRN Consult order Sodium Chloride 3 ml 02/08/20 00:00 02/08/20 07:47 0.9 % Sodium Chloride Flush 3 Ml Syringe IVFLUSH 3 ml QSHIFT HARRIS Administration Labs CBC & Chem 7: 02/08/20 06:47 02/08/20 06:47 Microbiology Microbiology Results: Microbiology 02/07/20 12:24 Blood - Venous Blood Culture - Preliminary 02/07/20 11:43 Blood - Venous Blood Culture - Preliminary Assessment and Plan (1) Obstructive jaundice: Status: Acute Assessment and Plan: a 79 years old male with PMH X of asthma, esophagitis, GERD, HTN and history of substance abuse who presents to the hospital complaining of generalized weakness and dark urine. Obstructive jaundice bilirubin decreased after hydration Continue IV fluid MRCP showing obstructive stone near ambulate with dilatation in intra and extrahepatic duct, no masses pending GI evaluation Patient started on IV antibiotic to decrease the risk of cholangitis he will need ERCP during this hospital stay weakness needs speech language pathology assistant with ambulation to do physical therapy hyponatremia Sodium of 131 at presentation, improved to normal with IV fluid Secondary to dehydration Continue IV fluid for today Anemia Seems to be chronic to check iron studies DVT ppx lovenox
[2020-02-08 12:17] LABS: Iron 45 mcg/dL (45-160); Percent Iron Saturation 25 % (15-50); Total Iron Binding Capacity 179 mcg/dL (228-428); Unsaturated Iron Binding 134 ug/dL
[2020-02-08 12:36] LABS: Ferritin 301 ng/mL (20-250)
--- NOTE | 2020-02-08 13:27 | CONS_ITS ---
DATE OF SERVICE: 02/08/2020 REFERRING PHYSICIAN: Wilda Richter MD REASON FOR CONSULTATION: Jaundice. HISTORY OF PRESENT ILLNESS: The patient is a 79-year-old male who was admitted to the hospital after presenting to the emergency room with abdominal pain and jaundice. He reports generalized bandlike abdominal pain 2 days prior to admission and on evaluation in the emergency room was noted to be jaundiced. Over the week prior to admission, he had dark urine, but did not complain of jaundice. He is a poor historian. He was evaluated in the emergency department and found to have elevated liver function tests. Subsequent CT scanning of the abdomen and pelvis was obtained which showed gallstones and biliary ductal dilation but no mass or stone. He underwent MR imaging today, which is interpreted as showing a 6 mm distal common bile duct stone. Liver function tests improved today. He has had no fever or chills since admission. Blood cultures obtained on admission are preliminarily positive for gram-positive cocci in chains. PAST MEDICAL HISTORY: 1. Asthma. 2. Gastroesophageal reflux disease. 3. Hypertension. 4. Depression. 5. History of substance abuse. 6. BPH. CURRENT MEDICATIONS: Current medication list is reviewed in the chart. ALLERGIES: THERE ARE NONE REPORTED. FAMILY HISTORY: Noncontributory. SOCIAL HISTORY: History of substance abuse as above. REVIEW OF SYSTEMS: SKIN: No pruritus. HEENT: Negative. CARDIOPULMONARY: He denies shortness of breath or chest pain. GASTROINTESTINAL: As above. GENITOURINARY: Negative. NEUROPSYCHIATRIC: Negative. PHYSICAL EXAMINATION: GENERAL: Shows a pleasant male, lying comfortably in bed. VITAL SIGNS: Reviewed in electronic medical record and are stable. SKIN: Mildly icteric. HEENT: Shows mild icterus. NECK: Without lymphadenopathy. LUNGS: Clear. HEART: Shows regular rate and rhythm. S1, S2. No murmur. ABDOMEN: Soft without focal masses or tenderness. Bowel sounds are present. No organomegaly is noted. EXTREMITIES: Without edema. LABORATORY DATA: Including CT, MRI, and chemistries are reviewed. White blood cell count is 8.2. IMPRESSION: Jaundice. This jaundice appears consistent with biliary obstruction from the gallstone described in the MR report. I have discussed the ERCP with him including risks and benefits with an customer service operator. He appears to understand these and agrees to proceed. This will tentatively be arranged for Monday given his overall stability and absence of any symptoms of cholangitis. The blood culture results may reflect contamination. If he has any decompensation, ERCP can be done urgently. In the interim, I agree with treating him empirically with antibiotics. Thanks for asking me to see him. I will follow him in the hospital with you. MD SAMMI Sanders/EDEN / [id number] [email or web address]
[2020-02-08 15:38] VITALS: BP 126/65; PULSE 80; RESP 19; TEMP 36.1; O2SAT 91
[2020-02-08] MEDS: Phytonadione (Vit K1) 10 MG in 0.9 % Sodium Chloride 50 ML 51 MG IV (17:32)
[2020-02-08 19:20] VITALS: BP 140/71; PULSE 82; RESP 19; TEMP 36.9; O2SAT 97
[2020-02-08 23:44] VITALS: BP 139/78; PULSE 74; RESP 19; TEMP 36.7; O2SAT 97
[2020-02-09 03:57] VITALS: BP 133/53; PULSE 74; RESP 16; TEMP 36.4; O2SAT 97
[2020-02-09] MEDS: metroNIDAZOLE/NS 500 MG/100 ML PIGGYBACK 100 MG IV ×3 (06:29→23:38)
[2020-02-09 07:38] LABS: Hematocrit 31.3 % (42-52); Hemoglobin 10.4 g/dl (14.0-18.0); Mean Corpuscular HGB Conc 33.2 g/dl (31.0-36.0); Mean Corpuscular Hemoglobin 28.5 pg (27.0-33.0); Mean Corpuscular Volume 85.8 fL (80-98); Mean Platelet Volume 11.1 fL (9.4-12.4); Platelet Count 250 X10*3/uL (160-400); Red Blood Count 3.65 X10*6/uL (4.60-5.80); Red Cell Distribution Width 16.3 % (11.0-16.0); White Blood Count 6.9 X10*3/uL (4.8-10.8)
[2020-02-09] MEDS: 0.9 % Sodium Chloride Flush 3 ML SYRINGE IVFLUSH ×3 (07:46→23:08)
[2020-02-09 07:52] LABS: INTERNATIONAL NORM RATIO 1.2 (0.9-1.1); Prothrombin Time 14.3 SEC (10.8-13.0)
[2020-02-09 08:00] VITALS: BP 126/81; PULSE 67; RESP 16; TEMP 36.3; O2SAT 98
[2020-02-09] MEDS: Docusate Sodium 100 MG CAPSULE PO (08:01)
[2020-02-09 08:07] LABS: Alanine Aminotransferase 68 U/L (0-40); Albumin Level 2.5 g/dL (3.5-5.0); Alkaline Phosphatase 889 U/L (39-117); Anion Gap 12 (12-20); Aspartate Amino Transferase 158 U/L (5-37); Bilirubin Direct 5.1 mg/dL (0.0-0.5); Bilirubin Total 6.6 mg/dL (0.0-1.0); Blood Urea Nitrogen 16 mg/dL (9-16); Carbon Dioxide 22 mmol/L (22-29); Chloride 106 mmol/L (96-108); Creatinine Clr Calc Pharmacy 61.8; Estimated Glomerular Filt Rate > 60; Glucose Random 80 mg/dL (60-115); Potassium 3.8 mmol/l (3.3-5.1); Sodium 136 mmol/L (135-145); Total Protein 4.9 g/dL (6.5-8.0)
[2020-02-09 11:38] VITALS: BP 128/76; PULSE 83; RESP 16; TEMP 36.1; O2SAT 98
--- NOTE | 2020-02-09 11:53 | HO.PM.IMPN ---
Subjective Subjective Date of Service: 02/09/20 Interval History: the patient was seen and evaluated this morning Laying in bed, feels comfortable Denies any fever, chills or shortness of breath looks jaundice No reported other overnight events. Systemic review: No fever, chills or weakness No chest pain, palpitation No shortness of breath or coughing No abdominal pain, nausea or vomiting No urinary symptoms No any rash or wounds Physical Exam Vital Signs: Vital Signs: Last Vital Signs Temp 96.9 F 02/09/20 11:38 Pulse 83 02/09/20 11:38 Resp 16 02/09/20 11:38 BP 128/76 02/09/20 11:38 Pulse Ox 98 02/09/20 11:38 Body Mass Index 24.0 Constitutional : Alert, oriented, not in distress Neck : Normal inspection, Supple Cardiovascular : RRR, S1 S2, no lower extremity edema Respiratory : Good bilateral air entry, no crackles, wheezes or rhonchi Gastrointestinal: soft, lax, Normal bowel sounds, Non tender Skin : Warm/Dry,, jaundice can be noticed, yellowish sclera Neurological : Alert & oriented x3, No focal deficit Objective Data Current Medications Generic Name Dose Route Start Last Admin Trade Name Freq PRN Reason Stop Dose Admin Docusate Sodium 100 mg 02/07/20 18:28 02/09/20 08:01 Docusate Sodium 100 Mg Capsule PO 100 mg DAILY PRN Administration Constipation Ceftriaxone Sodium 1 gm/ 50 mls @ 100 mls/hr 02/07/20 23:00 02/08/20 23:59 Sodium Chloride IV Infused Q24H H[facility]IS Infusion Metronidazole 500 mg in 100 mls @ 100 mls/hr 02/07/20 23:00 02/09/20 07:46 Flagyl IV Infused Q8H H[facility]IS Infusion Ondansetron HCl 4 mg 02/07/20 18:28 Ondansetron Hcl 4 Mg/2 Ml Vial IVPUSH Q8H PRN Nausea and Vomiting Oxybutynin Chloride 5 mg 02/08/20 09:00 02/09/20 07:45 Oxybutynin Chloride Er 5 Mg Tab.Er.24 PO 5 mg DAILY HARRIS Administration Pharmacy Consult 1 each 02/07/20 17:33 Consult Rx Perform Med Rec MISCELLANE ONCE PRN Consult order Sodium Chloride 3 ml 02/08/20 00:00 02/09/20 07:46 0.9 % Sodium Chloride Flush 3 Ml Syringe IVFLUSH 3 ml QSHIFT HARRSI Administration Labs CBC & Chem 7: 02/09/20 07:12 02/09/20 07:12 Microbiology Microbiology Results: Microbiology 02/07/20 12:24 Blood - Venous Blood Culture - Preliminary Gram negative jackie Gram positive cocci 02/07/20 11:43 Blood - Venous Blood Culture - Preliminary Gram negative jackie Gram positive cocci Assessment and Plan (1) Obstructive jaundice: Status: Acute Assessment and Plan: a 79 years old male with PMH X of asthma, esophagitis, GERD, HTN and history of substance abuse who presents to the hospital complaining of generalized weakness and dark urine. Obstructive jaundice bilirubin decreased after hydration Continue IV fluid MRCP showing obstructive stone near ambulate with dilatation in intra and extrahepatic duct, no masses Patient started on IV antibiotic to decrease the risk of cholangitis continue ceftriaxone and Flagyl GI input appreciated, to do ERCP tomorrow morning Transaminitis Secondary to obstruction Seems to be improving, could be from dilution Will continue to monitor liver function bacteremia Blood cultures growing Gram-positive and Gram-negative rods No signs of sepsis, not spiking fever, no need to expand antibiotic at this point On antibiotic, watch for signs of infection pending repeat blood cultures To get ID evaluation Generalized weakness needs research assistant member with ambulation to do physical therapy hyponatremia Sodium of 131 at presentation, resolved Secondary to dehydration Anemia Seems to be chronic to check iron studies DVT ppx lovenox
[2020-02-09] MEDS: polyethylene glycoL 3350 17 GM POWD.PACK PO (12:32)
[2020-02-09] MEDS: ondansetron HCL 4 MG/2 ML VIAL IVPUSH (12:42)
--- NOTE | 2020-02-09 14:06 | MHC.CM.PN ---
NURSE TAPER/FINISHER NOTE ELECTRONIC MEDICAL RECORD REVIEWED , PATIENT IS S/P 02/07/20 MRCP SHOWED OBSTRUCTIONS SECONDARY TO GALLSTONES, SCHEDULE FOR ERCP ON Monday02/10/20 PLAN CONTINUE IV FLUIDS , IV ABX (CEFTRIAXONE AND FLAGYl INITIAL BLOOD CULTURES WERE GRAM POSITIVE /GRAM NEGATIVE RODS MONITOR FOR REPEAT BLOOD CULTURE RESULTS DISCHARGE PLAN 1. CONTACT DON AT [facility] TO CONFIRM WHERE HE RECEIVES HIS [facility] NURSING FOR MEDICATION MANAGEMENT FROM 2. CHECK WITH [facility] TO SEE IF PATIENT IS ACTIVE WITH THEM FOR WHAT AND WHAT FREQUESNCY 3 SELF RESUMPTION OF HIS LUG BREAKER AND WIRE PULLER HOURS WITH [employer] 4. HX OF SUBSTANCE ABUSE ? 5. PCP DR QUEEN 6 TRANSPORTATION MAY NEED TRANSPORTATION ASSISTANCE UNABLE TO REACH HIS DAUGHTER
[2020-02-09 15:43] VITALS: BP 122/64; PULSE 79; RESP 18; TEMP 36.4; O2SAT 99
[2020-02-09 19:10] VITALS: BP 109/59; PULSE 89; RESP 20; TEMP 36.4; O2SAT 98
--- NOTE | 2020-02-09 21:19 | PM.GIPN ---
Subjective Subjective Date of Service: 02/09/20 Interval History: Patient seen at 1230 today no complaints of abd pain Physical Exam Vital Signs: Vital Signs: Last Vital Signs Temp 97.6 F 02/09/20 19:10 Pulse 89 02/09/20 19:10 Resp 20 02/09/20 19:10 BP 109/59 L 02/09/20 19:10 Pulse Ox 98 02/09/20 19:10 Body Mass Index 24.0 Const: General: cooperative and comfortable Eyes: Sclerae: scleral abnormal (icterus) GI: Inspection: Yes normal to inspection Palpation (GI): Soft to palpation and No hepatosplenomegaly present Extrem: General: Yes no clubbing, cyanosis or edema Objective Data Labs CBC & Chem 7: 02/09/20 07:12 02/09/20 07:12 Labs: Laboratory Results - last 24 hr 02/09/20 02/09/20 02/09/20 07:12 07:12 07:12 WBC 6.9 RBC 3.65 L Hgb 10.4 L Hct 31.3 L MCV 85.8 MCH 28.5 MCHC 33.2 RDW 16.3 H Plt Count 250 D MPV 11.1 Absolute Nucleated RBC 0.000 Nucleated RBC % (auto) 0.0 PT 14.3 H INR 1.2 H Sodium 136 Potassium 3.8 Chloride 106 Carbon Dioxide 22 Anion Gap 12 BUN 16 Creatinine 0.78 Estim Creat Clear Calc 61.8 Estimated GFR > 60 Random Glucose 80 Calcium 8.0 L Total Bilirubin 6.6 H Direct Bilirubin 5.1 H AST 158 H ALT 68 H Alkaline Phosphatase 889 H D Total Protein 4.9 L Albumin 2.5 L Microbiology Microbiology Results: Microbiology 02/07/20 11:43 Blood - Venous Blood Culture - Preliminary Gram negative jackie Gram positive cocci 02/07/20 12:24 Blood - Venous Blood Culture - Preliminary Gram negative jackie Gram positive cocci Progress Note: A&P Assessment and plan (1) Obstructive jaundice: Status: Acute Assessment and Plan: lfts better ERCP 02/09 Fall Risk Details Current Medications: Current Medications Generic Name Dose Route Start Last Admin Trade Name Freq PRN Reason Stop Dose Admin Docusate Sodium 100 mg 02/07/20 18:28 02/09/20 08:01 Docusate Sodium 100 Mg Capsule PO 100 mg DAILY PRN Administration Constipation Ceftriaxone Sodium 1 gm/ 50 mls @ 100 mls/hr 02/07/20 23:00 02/08/20 23:59 Sodium Chloride IV Infused Q24H HARRIS Infusion Metronidazole 500 mg in 100 mls @ 100 mls/hr 02/07/20 23:00 02/09/20 17:27 Flagyl IV Infused Q8H [facility]ARRIS Infusion Ondansetron HCl 4 mg 02/07/20 18:28 02/09/20 12:42 Ondansetron Hcl 4 Mg/2 Ml Vial IVPUSH 4 mg Q8H PRN Administration Nausea and Vomiting Oxybutynin Chloride 5 mg 02/08/20 09:00 02/09/20 07:45 Oxybutynin Chloride Er 5 Mg Tab.Er.24 PO 5 mg DAILY HARRIS Administration Pharmacy Consult 1 each 02/07/20 17:33 Consult Rx Perform Med Rec MISCELLANE ONCE PRN Consult order Sodium Chloride 3 ml 02/08/20 00:00 02/09/20 16:23 0.9 % Sodium Chloride Flush 3 Ml Syringe IVFLUSH 3 ml QSHIFT HARRIS Administration Time Spent With Patient Time: Total time spent is greater than 50% in coordination of care (as documented) at patient's floor/unit and/or counseling patient: Time with patient: less than 15 minutes
[2020-02-09] MEDS: cefTRIAXone sodium 1 GM in 0.9 % Sodium Chloride 50 ML IV (23:07)
[2020-02-09 23:50] VITALS: BP 119/61; PULSE 65; RESP 18; TEMP 37; O2SAT 98
[2020-02-10] VITALS (12 sets, daily range): BP systolic 104–155; BP diastolic 49–78; PULSE 71–103; RESP 16–20; TEMP 36–37; O2SAT 96–100
[2020-02-10 04:27] LABS: HBS Num1 4.15 mIU/mL (0-7.99); HBc Num1 8.17 S/CO (0.00-0.79); HBsAGNum1 0.22 S/CO (0.00-0.99); Hepatitis B Surface Antigen Negative (Negative); ~HepC Num1 0.07 S/CO (0.00-0.79); ~Hepatitis B Surface Antibody NONREACTIVE (Nonreactive); ~Hepatitis C Antibody Nonreactive (Nonreactive)
[2020-02-10 05:20] LABS: HBc Num2 10.45 S/CO; HBc Num3 9.69 S/CO; Hepatitis B Core Antibody Reactive (Nonreactive)
[2020-02-10] MEDS: metroNIDAZOLE/NS 500 MG/100 ML PIGGYBACK 100 MG IV ×3 (06:00→23:08)
[2020-02-10 06:26] LABS: Hematocrit 30.5 % (42-52); Hemoglobin 10.2 g/dl (14.0-18.0); Mean Corpuscular HGB Conc 33.4 g/dl (31.0-36.0); Mean Corpuscular Hemoglobin 28.8 pg (27.0-33.0); Mean Corpuscular Volume 86.2 fL (80-98); Mean Platelet Volume 10.9 fL (9.4-12.4); Platelet Count 263 X10*3/uL (160-400); Red Blood Count 3.54 X10*6/uL (4.60-5.80); Red Cell Distribution Width 15.8 % (11.0-16.0); White Blood Count 6.9 X10*3/uL (4.8-10.8)
[2020-02-10 07:08] LABS: Alanine Aminotransferase 52 U/L (0-40); Albumin Level 2.4 g/dL (3.5-5.0); Alkaline Phosphatase 847 U/L (39-117); Anion Gap 12 (12-20); Aspartate Amino Transferase 110 U/L (5-37); Bilirubin Direct 2.5 mg/dL (0.0-0.5); Bilirubin Total 3.8 mg/dL (0.0-1.0); Blood Urea Nitrogen 17 mg/dL (9-16); Carbon Dioxide 21 mmol/L (22-29); Chloride 107 mmol/L (96-108); Creatinine Clr Calc Pharmacy 60.2; Estimated Glomerular Filt Rate > 60; Glucose Random 88 mg/dL (60-115); Potassium 4.3 mmol/l (3.3-5.1); Sodium 136 mmol/L (135-145); Total Protein 5.2 g/dL (6.5-8.0)
[2020-02-10] MEDS: 0.9 % Sodium Chloride Flush 3 ML SYRINGE IVFLUSH ×3 (08:07→23:09)
--- NOTE | 2020-02-10 08:34 | P.CDIC_ITS ---
CDI Concurrent Query Service Date: 02/10/20 Documentation Clarification: Please clarify if you are treating a proba ble/suspected/likely or confirmed: Mild Protein Calorie Malnutrition Moderate Protein Calorie Malnutrition Severe Protein Calorie Malnutrition Provider Response: Moderate Protein-Calorie Malnutrition PLEASE DO NOT DELETE/MODIFY EXISTING CONTENT Additional information is needed in order to code to the highest accuracy and appropriate Severity of Illness (SOI). Please clarify the information noted below in your progress notes and discharge summary. Risk Factors/Clinical Indicators/Treatments 79 year old male admitted with obstructive jaundice, Cholelithiasis Per GI: jaundice consistent with biliary obstruction from gallstone. ERCP planned Height 5'3 Weight 134 BMI 24.0 Per ED note, cachectic with temporal wasting Total protein 5.7, Albumin 2.9 No Nutrition Assessment on record CDS: Paola Jang RN Contact Number: [phone] Please Review the information above and exercise your independent professional judgment in responding to the query. If you concur, pleas document in the PROGRESS NOTES and DISCHARGE SUMMARY. If you do not agree with the query, please document in the query above. THIS QUERY IS PART OF THE PERMANENT MEDICAL RECORD
--- NOTE | 2020-02-10 09:41 | MHC.SHP ---
Pre-Procedural Eval Section A The patient is an INPATIENT: Yes The History & Physical has been completed within 30 days and I have reviewed it.: Yes Section B Chief Complaint: obstructive jaundice Allergies: Allergies Allergy/AdvReac Type Severity Reaction Status Date / Time No Known Allergies Allergy Unverified 11/28/19 15:33 Plan Patient has been examined and remains a candidate for the planned procedure
--- NOTE | 2020-02-10 11:52 | MHC.CM.PN ---
PLAN IS FOR ERCP TODAY ACCORDING TO PHYSICIAN ROUNDS.
--- NOTE | 2020-02-10 12:16 | FL_ITS ---
EXAMINATION: XR FLUOROSCOPY WITH IMAGES CLINICAL INFORMATION: Obstructive jaundice. COMPARISON: CT abdomen and pelvis with contrast 02/07/2020, MRCP 02/08/2020. TECHNIQUE: Fluoroscopy performed by Dr. Cristiano Berger. Fluoroscopy time: 6.46 minutes Total dose: 118.8 mGy Images: 6 FINDINGS: There is contrast in the central biliary tree which is dilated, similar to recent imaging. The distal common duct stone is not visible on the spot images. FL/FL guidance in OR IMPRESSION: Fluoroscopy for ERCP.
--- NOTE | 2020-02-10 13:37 | HO.PM.IMPN ---
Subjective Subjective Date of Service: 02/10/20 Interval History: patient seen and examined at bedside patient reported weakness Constitutional Constitutional: Denies chills and Denies fever(s) Cardiovascular Cardiovascular: Denies chest pain and Denies dyspnea Respiratory Respiratory: Denies cough and Denies dyspnea Gastrointestinal Gastrointestinal: Denies abdominal pain, Denies diarrhea, Denies nausea and Denies vomiting Physical Exam Vital Signs: Vital Signs: Last Vital Signs Temp 97.7 F 02/10/20 13:01 Pulse 84 02/10/20 13:01 Resp 18 02/10/20 13:01 BP 155/77 H 02/10/20 13:01 Pulse Ox 98 02/10/20 13:01 Body Mass Index 24.0 Const: Nutritional Appearance: well nourished Orientation/consciousness: patient oriented x3 HENMT: Head: Yes normocephalic and Yes atraumatic Eyes: Other: scleral icterus Chest: Chest palpation & inspection: normal inspection of the chest Resp: Effort & Inspection: normal respiratory effort and no respiratory distress Auscultation: clear to auscultation bilaterally Cardio: Rate: regular rate Rhythm: regular rhythm GI: Palpation (GI): Soft to palpation and nontender Skin: General skin exam: jaundice Neuro: General: patient oriented x3 Cranial nerves: Yes CN's II-XII intact bilaterally and Yes Bilaterally intact EOM present Extrem: General: Yes normal to inspection Objective Data Current Medications Generic Name Dose Route Start Last Admin Trade Name Freq PRN Reason Stop Dose Admin Docusate Sodium 100 mg 02/07/20 18:28 02/09/20 08:01 Docusate Sodium 100 Mg Capsule PO 100 mg DAILY PRN Administration Constipation Ceftriaxone Sodium 1 gm/ 50 mls @ 100 mls/hr 02/07/20 23:00 02/09/20 23:38 Sodium Chloride IV Infused Q24H HARRIS Infusion Metronidazole 500 mg in 100 mls @ 100 mls/hr 02/07/20 23:00 02/10/20 07:06 Flagyl IV Infused Q8H HARRIS Infusion Ondansetron HCl 4 mg 02/07/20 18:28 02/09/20 12:42 Ondansetron Hcl 4 Mg/2 Ml Vial IVPUSH 4 mg Q8H PRN Administration Nausea and Vomiting Oxybutynin Chloride 5 mg 02/08/20 09:00 02/10/20 08:06 Oxybutynin Chloride Er 5 Mg Tab.Er.24 PO 5 mg DAILY HARRIS Administration Pharmacy Consult 1 each 02/07/20 17:33 Consult Rx Perform Med Rec MISCELLANE ONCE PRN Consult order Sodium Chloride 3 ml 02/08/20 00:00 02/10/20 08:07 0.9 % Sodium Chloride Flush 3 Ml Syringe IVFLUSH 3 ml QSHIFT HARRIS Administration Labs CBC & Chem 7: 02/10/20 06:07 02/10/20 06:07 Microbiology Microbiology Results: Microbiology 02/09/20 07:12 Blood - Venous Blood Culture - Preliminary No growth after 24 hours. 02/09/20 07:12 Blood - Venous Blood Culture - Preliminary No growth after 24 hours. 02/07/20 11:43 Blood - Venous Blood Culture - Final Klebsiella pneumoniae Streptococcus infantarius ssp 02/07/20 12:24 Blood - Venous Blood Culture - Final Klebsiella pneumoniae Streptococcus infantarius ssp Assessment and Plan (1) Obstructive jaundice: Status: Acute Assessment and Plan: a 79 years old male with PMH X of asthma, esophagitis, GERD, HTN and history of substance abuse who presents to the hospital complaining of generalized weakness and dark urine. Obstructive jaundice Transaminitis MRCP shows CBD stone plan for ERCP today GI following monitor LFTs Bacteremia Blood cultures growing Klebsiella and Streptococcus continue Rocephin and Flagyl id consult pending Generalized weakness needs trust administrative assistant with ambulation PT evaluation on discharge Hyponatremia Sodium of 131 at presentation, resolved Secondary to dehydration Anemia Seems to be chronic to check iron studies DVT ppx Hold lovenox for ERCP today
--- NOTE | 2020-02-10 13:46 | P.CONAN_ITS ---
HPI - Anesthesia Eval Consult details Narrative: p/f ercp d/t c/f gall stones PMFSH Past Medical History Medical History Asthma Depression Esophagitis Gallstones Gastritis GERD (gastroesophageal reflux disease) HTN (hypertension) Smoker Substance abuse Functional capacity: uses cane/walker Family History Family History Father No problems noted. Mother No problems noted. 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 If so, by whom?: No Do you feel safe in your current relationship?: No Current Relationship Is there a partner from a previous relationship who is making you feel unsafe now?: No Are you made to feel afraid or neglected: No Advance Directives: No Advance Directives Information Provided: No Do you have thoughts of harming others: None Do you have a plan to hurt others: No Plan Recently lost weight without trying: Unsure service: No Current occupational status: unemployed Meds Allergies Allergy/AdvReac Type Severity Reaction Status Date / Time No Known Allergies Allergy Unverified 11/28/19 15:33 Home Medications Medication Instructions Recorded Confirmed Type albuterol sulfate 2.5 mg INHALATION QID PRN 12/14/19 02/07/20 History albuterol sulfate 90 mcg/actuation 2 puff PO Q4-6H PRN 12/14/19 02/07/20 History aerosol inhaler atorvastatin 20 mg tablet 20 mg PO DAILY 12/14/19 02/07/20 History benztropine 0.5 mg tablet 0.5 mg PO BEDTIME 12/14/19 02/07/20 History buprenorphine 8 mg-naloxone 2 mg 2 film SUBLINGUAL DAILY 12/14/19 02/07/20 History sublingual film cyanocobalamin (vitamin B-12) 1,000 mcg PO DAILY 12/14/19 02/07/20 History 1,000 mcg tablet docusate sodium 100 mg capsule 100 mg PO BID 12/14/19 02/07/20 History fluticasone 250 mcg-salmeterol 50 1 ea INHALATION Q12H 12/14/19 02/07/20 History mcg/dose blistr powdr for inhalation haloperidol lactate 2 mg/mL oral 1 mg PO BEDTIME 12/14/19 02/07/20 History concentrate multivitamin 1 tab PO DAILY 12/14/19 02/07/20 History naloxone 4 mg/actuation nasal spray 1 spray INTRANASAL ONCE PRN 12/14/19 02/07/20 History omeprazole 40 mg capsule,delayed 40 mg PO DAILY 12/14/19 02/07/20 History release quetiapine 100 mg tablet 150 mg PO BEDTIME 12/14/19 02/07/20 History quetiapine 50 mg tablet 50 mg PO BID@0900,1700 12/14/19 02/07/20 History sertraline 100 mg tablet 100 mg PO DAILY 12/14/19 02/07/20 History tamsulosin 0.4 mg capsule 0.4 mg PO DAILY 12/14/19 02/07/20 History trazodone 100 mg tablet 100 mg PO BEDTIME 12/14/19 02/07/20 History umeclidinium 62.5 mcg/actuation 1 inh INHALATION DAILY 12/14/19 02/07/20 History blister powder for inhalation Exam Exam Date and Time: February 10, 2020 1346 Height,Weight and Vital Signs: Height 5 ft 3 in Weight 61.4 kg Last Vital Signs Temp 97.7 F 02/10/20 13:01 Pulse 84 02/10/20 13:01 Resp 18 02/10/20 13:01 BP 155/77 H 02/10/20 13:01 Pulse Ox 98 02/10/20 13:01 Pertinent Lab Results Pertinent Lab Results: Laboratory Tests 02/07/20 02/07/20 02/07/20 11:43 11:43 11:43 WBC 8.2 RBC 4.11 L Hgb 11.8 L Hct 34.5 L MCV 83.9 MCH 28.7 MCHC 34.2 RDW 16.0 Plt Count 197 MPV 11.7 Immature Gran % (Auto) 1.6 H Neut % (Auto) 77.4 H Lymph % (Auto) 12.1 L Shannon % (Auto) 6.9 Eos % (Auto) 2.0 Baso % (Auto) 0.0 Lymph # (Auto) 1.0 L Shannon # (Auto) 0.6 Eos # (Auto) 0.2 Baso # (Auto) 0.0 Abs Immat Gran (auto) 0.13 H Absolute Neuts (auto) 6.3 Absolute Nucleated RBC 0.000 Nucleated RBC % (auto) 0.0 PT INR APTT Hold Blue Top SEE NOTE Sodium Potassium Chloride Carbon Dioxide Anion Gap BUN Creatinine Estim Creat Clear Calc Estimated GFR Random Glucose Lactic Acid Calcium Magnesium Iron TIBC % Saturation Unsat Iron Binding Ferritin Total Bilirubin Direct Bilirubin AST ALT Alkaline Phosphatase Troponin I High Sens Total Protein Albumin Urine Color Urine Appearance Urine pH Ur Specific [place] Urine Protein Urine Glucose (UA) Urine Ketones Urine Blood Urine Nitrite Ur Leukocyte Esterase Urine RBC Urine WBC Ur Squamous Epith Cells Urine Bacteria Coronavirus (PCR) NEGATIVE Hep Bs Antigen Hep Bs Antibody Hep B Core Total Ab Hepatitis C Ab (EIA) Influenza Type A (PCR) NEGATIVE Influenza Type B (PCR) NEGATIVE RSV RNA Qual (PCR) NEGATIVE 02/07/20 02/07/20 02/07/20 11:43 11:43 11:43 WBC RBC Hgb Hct MCV MCH MCHC RDW Plt Count MPV Immature Gran % (Auto) Neut % (Auto) Lymph % (Auto) Shannon % (Auto) Eos % (Auto) Baso % (Auto) Lymph # (Auto) Shannon # (Auto) Eos # (Auto) Baso # (Auto) Abs Immat Gran (auto) Absolute Neuts (auto) Absolute Nucleated RBC Nucleated RBC % (auto) PT 19.5 H INR 1.6 H APTT 38.4 H Hold Blue Top Sodium 131 L Potassium 4.2 Chloride 98 Carbon Dioxide 20 L Anion Gap 17 BUN 24 H Creatinine 1.05 Estim Creat Clear Calc 45.9 Estimated GFR > 60 Random Glucose 94 Lactic Acid 0.9 Calcium 8.3 L Magnesium 2.1 Iron TIBC % Saturation Unsat Iron Binding Ferritin Total Bilirubin 10.9 H Direct Bilirubin 8.4 H AST 83 H ALT 49 H Alkaline Phosphatase 670 H Troponin I High Sens Total Protein 5.7 L Albumin 2.9 L Urine Color Urine Appearance Urine pH Ur Specific [place] Urine Protein Urine Glucose (UA) Urine Ketones Urine Blood Urine Nitrite Ur Leukocyte Esterase Urine RBC Urine WBC Ur Squamous Epith Cells Urine Bacteria Coronavirus (PCR) Hep Bs Antigen Hep Bs Antibody Hep B Core Total Ab Hepatitis C Ab (EIA) Influenza Type A (PCR) Influenza Type B (PCR) RSV RNA Qual (PCR) 02/07/20 02/07/20 02/07/20 11:43 11:43 16:53 WBC RBC Hgb Hct MCV MCH MCHC RDW Plt Count MPV Immature Gran % (Auto) Neut % (Auto) Lymph % (Auto) Shannon % (Auto) Eos % (Auto) Baso % (Auto) Lymph # (Auto) Shannon # (Auto) Eos # (Auto) Baso # (Auto) Abs Immat Gran (auto) Absolute Neuts (auto) Absolute Nucleated RBC Nucleated RBC % (auto) PT INR APTT Hold Blue Top Sodium Potassium Chloride Carbon Dioxide Anion Gap BUN Creatinine Estim Creat Clear Calc Estimated GFR Random Glucose Lactic Acid Calcium Magnesium Iron TIBC % Saturation Unsat Iron Binding Ferritin Total Bilirubin Direct Bilirubin AST ALT Alkaline Phosphatase Troponin I High Sens < 3.5 Total Protein Albumin Urine Color LIGIA Urine Appearance CLEAR Urine pH 6.5 Ur Specific [place] <= 1.005 Urine Protein NEG Urine Glucose (UA) NEG Urine Ketones 5 Urine Blood TRACE Urine Nitrite NEG Ur Leukocyte Esterase NEG Urine RBC 0-2 Urine WBC 0-2 Ur Squamous Epith Cells TRACE Urine Bacteria TRACE Coronavirus (PCR) Hep Bs Antigen Negative Hep Bs Antibody NONREACTIVE Hep B Core Total Ab Reactive Hepatitis C Ab (EIA) Nonreactive Influenza Type A (PCR) Influenza Type B (PCR) RSV RNA Qual (PCR) 02/08/20 02/08/20 02/08/20 06:47 06:47 06:47 WBC 8.2 RBC 3.54 L Hgb 10.2 L Hct 29.5 L MCV 83.3 MCH 28.8 MCHC 34.6 RDW 16.0 Plt Count 197 MPV 11.5 Immature Gran % (Auto) 1.1 H Neut % (Auto) 75.2 H Lymph % (Auto) 12.2 L Shannon % (Auto) 8.8 Eos % (Auto) 2.6 Baso % (Auto) 0.1 Lymph # (Auto) 1.0 L Shannon # (Auto) 0.7 Eos # (Auto) 0.2 Baso # (Auto) 0.0 Abs Immat Gran (auto) 0.09 H Absolute Neuts (auto) 6.2 Absolute Nucleated RBC 0.000 Nucleated RBC % (auto) 0.0 PT 17.7 H INR 1.5 H APTT Hold Blue Top Sodium 136 Potassium 3.7 Chloride 106 Carbon Dioxide 22 Anion Gap 12 BUN 18 H Creatinine 0.81 Estim Creat Clear Calc 59.5 Estimated GFR > 60 Random Glucose 104 Lactic Acid Calcium 7.8 L D Magnesium Iron 45 TIBC 179 L % Saturation 25 Unsat Iron Binding 134 Ferritin 301 H Total Bilirubin 7.3 H Direct Bilirubin 5.7 H AST 92 H ALT 46 H Alkaline Phosphatase 620 H Troponin I High Sens Total Protein 4.6 L Albumin 2.4 L Urine Color Urine Appearance Urine pH Ur Specific [place] Urine Protein Urine Glucose (UA) Urine Ketones Urine Blood Urine Nitrite Ur Leukocyte Esterase Urine RBC Urine WBC Ur Squamous Epith Cells Urine Bacteria Coronavirus (PCR) Hep Bs Antigen Hep Bs Antibody Hep B Core Total Ab Hepatitis C Ab (EIA) Influenza Type A (PCR) Influenza Type B (PCR) RSV RNA Qual (PCR) 02/09/20 02/09/20 02/09/20 07:12 07:12 07:12 WBC 6.9 RBC 3.65 L Hgb 10.4 L Hct 31.3 L MCV 85.8 MCH 28.5 MCHC 33.2 RDW 16.3 H Plt Count 250 D MPV 11.1 Immature Gran % (Auto) Neut % (Auto) Lymph % (Auto) Shannon % (Auto) Eos % (Auto) Baso % (Auto) Lymph # (Auto) Shannon # (Auto) Eos # (Auto) Baso # (Auto) Abs Immat Gran (auto) Absolute Neuts (auto) Absolute Nucleated RBC 0.000 Nucleated RBC % (auto) 0.0 PT 14.3 H INR 1.2 H APTT Hold Blue Top Sodium 136 Potassium 3.8 Chloride 106 Carbon Dioxide 22 Anion Gap 12 BUN 16 Creatinine 0.78 Estim Creat Clear Calc 61.8 Estimated GFR > 60 Random Glucose 80 Lactic Acid Calcium 8.0 L Magnesium Iron TIBC % Saturation Unsat Iron Binding Ferritin Total Bilirubin 6.6 H Direct Bilirubin 5.1 H AST 158 H ALT 68 H Alkaline Phosphatase 889 H D Troponin I High Sens Total Protein 4.9 L Albumin 2.5 L Urine Color Urine Appearance Urine pH Ur Specific [place] Urine Protein Urine Glucose (UA) Urine Ketones Urine Blood Urine Nitrite Ur Leukocyte Esterase Urine RBC Urine WBC Ur Squamous Epith Cells Urine Bacteria Coronavirus (PCR) Hep Bs Antigen Hep Bs Antibody Hep B Core Total Ab Hepatitis C Ab (EIA) Influenza Type A (PCR) Influenza Type B (PCR) RSV RNA Qual (PCR) 02/10/20 02/10/20 06:07 06:07 WBC 6.9 RBC 3.54 L Hgb 10.2 L Hct 30.5 L MCV 86.2 MCH 28.8 MCHC 33.4 RDW 15.8 Plt Count 263 MPV 10.9 Immature Gran % (Auto) Neut % (Auto) Lymph % (Auto) Shannon % (Auto) Eos % (Auto) Baso % (Auto) Lymph # (Auto) Shannon # (Auto) Eos # (Auto) Baso # (Auto) Abs Immat Gran (auto) Absolute Neuts (auto) Absolute Nucleated RBC 0.000 Nucleated RBC % (auto) 0.0 PT INR APTT Hold Blue Top Sodium 136 Potassium 4.3 Chloride 107 Carbon Dioxide 21 L Anion Gap 12 BUN 17 H Creatinine 0.80 Estim Creat Clear Calc 60.2 Estimated GFR > 60 Random Glucose 88 Lactic Acid Calcium 8.0 L Magnesium Iron TIBC % Saturation Unsat Iron Binding Ferritin Total Bilirubin 3.8 H Direct Bilirubin 2.5 H AST 110 H ALT 52 H Alkaline Phosphatase 847 H Troponin I High Sens Total Protein 5.2 L Albumin 2.4 L Urine Color Urine Appearance Urine pH Ur Specific [place] Urine Protein Urine Glucose (UA) Urine Ketones Urine Blood Urine Nitrite Ur Leukocyte Esterase Urine RBC Urine WBC Ur Squamous Epith Cells Urine Bacteria Coronavirus (PCR) Hep Bs Antigen Hep Bs Antibody Hep B Core Total Ab Hepatitis C Ab (EIA) Influenza Type A (PCR) Influenza Type B (PCR) RSV RNA Qual (PCR) Assessment and Plan Assessment Anesthesia Assessment: Anesthesia Plan Discussed and Chart Reviewed Final Anesthetic Review NPO: Yes ASA Class: III Final Preanesthetic Review: No Changes in Pt Med Stat, Meds/Allgs Chart Reviewed and Consent Obtained/Reviewed Patient Risk: Intermediate Procedure Risk: Intermediate Anesthetic Plan Anesthetic Plan: GA Disposition: Standard PACU
--- NOTE | 2020-02-10 15:32 | P.CNID_ITS ---
History of Present Illness Data of Consult Service Date: 02/10/20 Requesting physician: Prince Harrison Primary Care Provider: Unknown Physician HPI Reason for consult: bacteremia He presents to hospital with two days of dizziness He was found to have obstructive jaundice and concern over malignancy Review of Systems Constitutional: Constitutional: Reports no additional constitutional complaints and Reports fatigue Endocrine: Endocrine: Reports fatigue PMFSH Past Medical History Medical History Asthma Depression Esophagitis Gastritis GERD (gastroesophageal reflux disease) HTN (hypertension) Substance abuse Functional capacity: uses cane/walker Family History Family History Father No problems noted. Mother No problems noted. 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 If so, by whom?: No Do you feel safe in your current relationship?: No Current Relationship Is there a partner from a previous relationship who is making you feel unsafe now?: No Are you made to feel afraid or neglected: No Advance Directives: No Advance Directives Information Provided: No Do you have thoughts of harming others: None Do you have a plan to hurt others: No Plan Recently lost weight without trying: Unsure service: No Current occupational status: unemployed Meds Allergies Allergy/AdvReac Type Severity Reaction Status Date / Time No Known Allergies Allergy Unverified 11/28/19 15:33 Home Medications Medication Instructions Recorded Confirmed Type albuterol sulfate 2.5 mg INHALATION QID PRN 12/14/19 02/07/20 History albuterol sulfate 90 mcg/actuation 2 puff PO Q4-6H PRN 12/14/19 02/07/20 History aerosol inhaler atorvastatin 20 mg tablet 20 mg PO DAILY 12/14/19 02/07/20 History benztropine 0.5 mg tablet 0.5 mg PO BEDTIME 12/14/19 02/07/20 History buprenorphine 8 mg-naloxone 2 mg 2 film SUBLINGUAL DAILY 12/14/19 02/07/20 History sublingual film cyanocobalamin (vitamin B-12) 1,000 mcg PO DAILY 12/14/19 02/07/20 History 1,000 mcg tablet docusate sodium 100 mg capsule 100 mg PO BID 12/14/19 02/07/20 History fluticasone 250 mcg-salmeterol 50 1 ea INHALATION Q12H 12/14/19 02/07/20 History mcg/dose blistr powdr for inhalation haloperidol lactate 2 mg/mL oral 1 mg PO BEDTIME 12/14/19 02/07/20 History concentrate multivitamin 1 tab PO DAILY 12/14/19 02/07/20 History naloxone 4 mg/actuation nasal spray 1 spray INTRANASAL ONCE PRN 12/14/19 02/07/20 History omeprazole 40 mg capsule,delayed 40 mg PO DAILY 12/14/19 02/07/20 History release quetiapine 100 mg tablet 150 mg PO BEDTIME 12/14/19 02/07/20 History quetiapine 50 mg tablet 50 mg PO BID@0900,1700 12/14/19 02/07/20 History sertraline 100 mg tablet 100 mg PO DAILY 12/14/19 02/07/20 History tamsulosin 0.4 mg capsule 0.4 mg PO DAILY 12/14/19 02/07/20 History trazodone 100 mg tablet 100 mg PO BEDTIME 12/14/19 02/07/20 History umeclidinium 62.5 mcg/actuation 1 inh INHALATION DAILY 12/14/19 02/07/20 History blister powder for inhalation Physical Exam Vital Signs: Vital Signs: Last Vital Signs Temp 97.7 F 02/10/20 13:01 Pulse 84 02/10/20 13:01 Resp 18 02/10/20 13:01 BP 155/77 H 02/10/20 13:01 Pulse Ox 98 02/10/20 13:01 Body Mass Index 24.0 Const: General: cooperative HENMT: Head: Yes normal to inspection Throat: Yes posterior oropharynx norm al Eyes: General: appearance normal, both eyes and all related structures Resp: Effort & Inspection: normal respiratory effort Cardio: Rate: regular rate Rhythm: regular rhythm GI: Inspection: Yes normal to inspection : General: Yes no CVA tenderness Back/Spine/Pelvis: Back: no CVA tenderness Skin: General skin exam: no rashes or lesions noted Extrem: General: Yes normal to inspection Assessment and Plan (1) Obstructive jaundice: Problem details: He has bacteremia Klebsiella pneumonia and strep infantarius 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 He is on Ceftriaxone and Flagyl Status: Acute Continue current medication Relieve ductal obstruction if able May change to po Ceftin for total 14 d outpatient when discharged (2) Painless jaundice: Status: Acute Results Labs CBC & Chem 7: 02/10/20 06:07 02/10/20 06:07 Labs: Short CBC 02/10/20 Range/Units 06:07 WBC 6.9 (4.8-10.8) X10*3/uL Hgb 10.2 L (14.0-18.0) g/dl Hct 30.5 L (42-52) % Plt Count 263 (160-400) X10*3/uL BMP 02/10/20 06:07 Sodium 136 Potassium 4.3 Chloride 107 Carbon Dioxide 21 L BUN 17 H Creatinine 0.80 Calcium 8.0 L Liver Function 02/10/20 Range/Units 06:07 Total Bilirubin 3.8 H (0.0-1.0) mg/dL Direct Bilirubin 2.5 H (0.0-0.5) mg/dL AST 110 H (5-37) U/L ALT 52 H (0-40) U/L Alkaline Phosphatase 847 H (39-117) U/L Albumin 2.4 L (3.5-5.0) g/dL Microbiology Microbiology Results: Microbiology 02/09/20 07:12 Blood - Venous Blood Culture - Preliminary No growth after 24 hours. 02/09/20 07:12 Blood - Venous Blood Culture - Preliminary No growth after 24 hours. 02/07/20 11:43 Blood - Venous Blood Culture - Final Klebsiella pneumoniae Streptococcus infantarius ssp 02/07/20 12:24 Blood - Venous Blood Culture - Final Klebsiella pneumoniae Streptococcus infantarius ssp
--- NOTE | 2020-02-10 15:35 | PM.OP ---
Brief Operative Note Date of Service: 02/10/20 Pre-op diagnosis: CBD stone Post-op diagnosis: same Procedure: ercp Surgeon: Cristiano Berger Anesthesia: MAC Estimated blood loss (mL): 0 Pathology: none sent Condition: stable Disposition: PACU
--- NOTE | 2020-02-10 15:36 | PM.EVENT ---
Event Note Date of Service: 02/10/20 Event Note: ERCP dictated 6 mm cbd stone removed with balloon after sphincterotomy. dilated cbd, good drainage of clear yellow bile. rec advance diet surgical consult for possible ccy
--- NOTE | 2020-02-10 16:31 | OP_ITS ---
SURGEON: Cristiano Berger MD INDICATIONS: Common bile duct stone and jaundice. PREOPERATIVE DIAGNOSIS: POSTOPERATIVE DIAGNOSIS: PROCEDURE PERFORMED: ERCP with sphincterotomy and extraction of common bile duct stone. ESTIMATED BLOOD LOSS: COMPLICATIONS: ANESTHESIA: ASSISTANTS: SPECIMENS: MEDICATIONS: General anesthesia. DESCRIPTION OF PROCEDURE: History and physical performed. The risks and benefits of the procedure were explained to the patient. Informed consent was obtained. The patient was placed in the prone position with a wedge under the right shoulder. The Olympus therapeutic duodenoscope was introduced into the esophagus, stomach, and duodenum. Examination was performed and the scope was removed. He tolerated the procedure well and was taken to recovery area in stable condition. FINDINGS: The major papilla was identified with clear yellow bile draining, access to the common bile duct was gained with guidewire passed to a sphincterotome. Cholangiography showed dilation of the common bile duct consistent with the findings on MRI. A sphincterotomy was performed in the usual manner with an approximately 8 mm sphincterotomy. A 12 mm balloon was used to extract a single brown 6 mm stone. The balloon passed fairly easily through the sphincterotomy. There was excellent drainage of clear yellow bile at the termination of the procedure. No other filling defects were identified and several sweeps with the balloon produced no further stones. The cystic duct was not definitely identified to fill. No pancreatogram was attempted or obtained. Limited endoscopy was remarkable for a hiatal hernia. IMPRESSION: Common bile duct stone. RECOMMENDATIONS: 1. Advanced diet. 2. Surgical consultation for possible cholecystectomy. MD SAMMI Sanders/[place] / [id number]
--- NOTE | 2020-02-10 17:15 | PM.CNGS ---
History of Present Illness Consult details Consult date: 02/10/20 Narrative: 79M referred for gallstones. He was admitted to the hospital via the ED last because of weakness. Evaluation in the ED had shown markedly elevated LFTs. He had a CT scan showing gallstones. with dilated intrahepatic and extrahepatic bile ducts, and an MRI showed a CBD stone. He therefore underwent ERCP today with successful clearance of the CBD. I was consulted because of his gallstones. He says he does not have any abdominal pain at this time. Review of Systems Constitutional: Constitutional: Denies chills and Denies fever(s) Cardiovascular: Cardiovascular: Denies chest pain, Denies dyspnea and Denies dyspnea on exertion Respiratory: Respiratory: Denies cough, Denies dyspnea and Denies dyspnea on exertion Gastrointestinal: Gastrointestinal: Denies hematochezia and Denies change in bowel habits Genitourinary: Genitourinary: Denies hematuria and Denies difficulty urinating Musculoskeletal: Musculoskeletal: Denies back pain and Denies limited range of motion Neurologic: Denies focal weakness and Denies convulsions Psychiatric: Psychiatric: Denies depression and Denies mood swings PMFSH Past Medical History Medical History Asthma Depression Esophagitis Gallstones Gastritis GERD (gastroesophageal reflux disease) HTN (hypertension) Smoker Substance abuse Functional capacity: uses cane/walker Family History Family History Father No problems noted. Mother No problems noted. Surgical History Surgical History History of prostate biopsy Social History Social History Household Members: None Housing: House Do you presently have visiting nurse or other home services: Yes (LINE [employer] SECTION) Alcohol intake: never Smoking Status: Current some day smoker Tobacco Type: Cigarette Smoked in Last 30 Days: No Patient Interested in Nicotine Replacement: No Patient Given Instructions on How to Stop Smoking: Yes Date Education Initiated: 02/07/20 Second Hand Smoke Exposure: Yes Use of substances other than those prescribed or required for medical reasons: No Currently Displaying Signs/Symptoms of Drug Intoxication Withdrawal: No Have you been hit, kicked, punched, or otherwise hurt by someone within the past year? If so, by whom?: No Do you feel safe in your current relationship?: No Current Relationship Is there a partner from a previous relationship who is making you feel unsafe now?: No Are you made to feel afraid or neglected: No Advance Directives: No Advance Directives Information Provided: No Do you have thoughts of harming others: None Do you have a plan to hurt others: No Plan Recently lost weight without trying: Unsure service: No Current occupational status: unemployed Meds Allergies Allergy/AdvReac Type Severity Reaction Status Date / Time No Known Allergies Allergy Unverified 11/28/19 15:33 Home Medications Medication Instructions Recorded Confirmed Type albuterol sulfate 2.5 mg INHALATION QID PRN 12/14/19 02/07/20 History albuterol sulfate 90 mcg/actuation 2 puff PO Q4-6H PRN 12/14/19 02/07/20 History aerosol inhaler atorvastatin 20 mg tablet 20 mg PO DAILY 12/14/19 02/07/20 History benztropine 0.5 mg tablet 0.5 mg PO BEDTIME 12/14/19 02/07/20 History buprenorphine 8 mg-naloxone 2 mg 2 film SUBLINGUAL DAILY 12/14/19 02/07/20 History sublingual film cyanocobalamin (vitamin B-12) 1,000 mcg PO DAILY 12/14/19 02/07/20 History 1,000 mcg tablet docusate sodium 100 mg capsule 100 mg PO BID 12/14/19 02/07/20 History fluticasone 250 mcg-salmeterol 50 1 ea INHALATION Q12H 12/14/19 02/07/20 History mcg/dose blistr powdr for inhalation haloperidol lactate 2 mg/mL oral 1 mg PO BEDTIME 12/14/19 02/07/20 History concentrate multivitamin 1 tab PO DAILY 12/14/19 02/07/20 History naloxone 4 mg/actuation nasal spray 1 spray INTRANASAL ONCE PRN 12/14/19 02/07/20 History omeprazole 40 mg capsule,delayed 40 mg PO DAILY 12/14/19 02/07/20 History release quetiapine 100 mg tablet 150 mg PO BEDTIME 12/14/19 02/07/20 History quetiapine 50 mg tablet 50 mg PO BID@0900,1700 12/14/19 02/07/20 History sertraline 100 mg tablet 100 mg PO DAILY 12/14/19 02/07/20 History tamsulosin 0.4 mg capsule 0.4 mg PO DAILY 12/14/19 02/07/20 History trazodone 100 mg tablet 100 mg PO BEDTIME 12/14/19 02/07/20 History umeclidinium 62.5 mcg/actuation 1 inh INHALATION DAILY 12/14/19 02/07/20 History blister powder for inhalation Physical Exam Vital Signs: Vital Signs: Last Vital Signs Temp 98.0 F 02/10/20 16:30 Pulse 88 02/10/20 16:30 Resp 18 02/10/20 16:30 BP 132/66 02/10/20 16:30 Pulse Ox 99 02/10/20 16:30 Body Mass Index 24.0 Const: Other: appears frail, able to answer simple questions General: comfortable and no acute distress Neck: Neck: Yes no lymphadenopathy Resp: Auscultation: clear to auscultation bilaterally Cardio: Rhythm: regular rhythm GI: Palpation (GI): Soft to palpation, nontender and no guarding Results Labs Result diagrams: 02/10/20 06:07 02/11/20 09:13 Labs: Abnormal lab results 02/10/20 02/10/20 Range/Units 06:07 06:07 RBC 3.54 L (4.60-5.80) X10*6/uL Hgb 10.2 L (14.0-18.0) g/dl Hct 30.5 L (42-52) % Carbon Dioxide 21 L (22-29) mmol/L BUN 17 H (9-16) mg/dL Calcium 8.0 L (8.4-10.2) mg/dL Total Bilirubin 3.8 H (0.0-1.0) mg/dL Direct Bilirubin 2.5 H (0.0-0.5) mg/dL AST 110 H (5-37) U/L ALT 52 H (0-40) U/L Alkaline Phosphatase 847 H (39-117) U/L Total Protein 5.2 L (6.5-8.0) g/dL Albumin 2.4 L (3.5-5.0) g/dL Short CBC 02/10/20 Range/Units 06:07 WBC 6.9 (4.8-10.8) X10*3/uL Hgb 10.2 L (14.0-18.0) g/dl Hct 30.5 L (42-52) % Plt Count 263 (160-400) X10*3/uL BMP 02/10/20 06:07 Sodium 136 Potassium 4.3 Chloride 107 Carbon Dioxide 21 L BUN 17 H Creatinine 0.80 Calcium 8.0 L Liver Function 02/10/20 Range/Units 06:07 Total Bilirubin 3.8 H (0.0-1.0) mg/dL Direct Bilirubin 2.5 H (0.0-0.5) mg/dL AST 110 H (5-37) U/L ALT 52 H (0-40) U/L Alkaline Phosphatase 847 H (39-117) U/L Albumin 2.4 L (3.5-5.0) g/dL Urine 02/07/20 Range/Units 16:53 Urine Color LIGIA Urine Appearance CLEAR Urine pH 6.5 (5.0-8.0) Ur Specific [place] <= 1.005 (1.005-1.025) Urine Protein NEG (NEG-TRACE) MG/DL Urine Glucose (UA) NEG (NEG) MG/DL All other labs normal. Assessment and Plan (1) Gallstones: Status: Acute He has gallstones on CT scan, with a CBD stone on MRI. He underwent successful ERCP today for obstructive jaundice.He currently denies abdominal pain, and does not seem to be tender on examination. His LFTs are still elevated and we will trend this.I did explain to him the option of proceeding with laparoscopic cholecystectomy to prevent recurrence of passage of stone into the CBD. I reviewed with him the risks including but not limited to bleeding, infections, injury to the bowel/liver/bile duct, inherent risks of anesthesia, as well as the benefits and alternatives. He says he does not have any abdominal pain at this time and says he wants to hold off on surgery. I will discuss the above with his family as I am uncertain about his overall state of health. We will follow his LFTs and continue empiric abx at this time as he did have positive blood cultures on admission.
[2020-02-10] MEDS: cefTRIAXone sodium 1 GM in 0.9 % Sodium Chloride 50 ML IV (22:34)
[2020-02-11] VITALS: BP 137/72; PULSE 86; RESP 20; TEMP 36.7; O2SAT 99
[2020-02-11 03:58] VITALS: BP 139/73; PULSE 78; RESP 20; TEMP 36.3; O2SAT 98
[2020-02-11] MEDS: metroNIDAZOLE/NS 500 MG/100 ML PIGGYBACK 100 MG IV ×3 (06:15→23:06)
--- NOTE | 2020-02-11 06:53 | PM.PNGS ---
Subjective Subjective Date of Service: 02/11/20 Interval history: denies abdominal pain says he feels well wants to go home Physical Exam Vital Signs: Vital Signs: Last Vital Signs Temp 97.3 F 02/11/20 03:58 Pulse 78 02/11/20 03:58 Resp 20 02/11/20 03:58 BP 139/73 02/11/20 03:58 Pulse Ox 98 02/11/20 03:58 Body Mass Index 24.0 Chemistry 02/08/20 02/09/20 02/10/20 06:47 07:12 06:07 Sodium 136 136 136 Potassium 3.7 3.8 4.3 Carbon Dioxide 22 22 21 L BUN 18 H 16 17 H Creatinine 0.81 0.78 0.80 Calcium 7.8 L D 8.0 L 8.0 L Hematology 02/08/20 02/09/20 02/10/20 06:47 07:12 06:07 WBC 8.2 6.9 6.9 Hgb 10.2 L 10.4 L 10.2 L Plt Count 197 250 D 263 Const: General: comfortable and no acute distress Cardio: Rate: regular rate Rhythm: regular rhythm GI: Palpation (GI): Soft to palpation, nontender and no guarding Progress Note: A&P Assessment and plan (1) Gallstones: Status: Acute Assessment and Plan: S/p ERCP for CBD stone looks well no abdominal pain follow LFTs - bili levels should continue to trend down pt does not want any surgery at this time will dw family pt asking to be discharged Fall Risk Details Current Medications: Current Medications Generic Name Dose Route Start Last Admin Trade Name Slade PRN Reason Stop Dose Admin Docusate Sodium 100 mg 02/07/20 18:28 02/09/20 08:01 Docusate Sodium 100 Mg Capsule PO 100 mg DAILY PRN Administration Constipation Ceftriaxone Sodium 1 gm/ 50 mls @ 100 mls/hr 02/07/20 23:00 02/10/20 23:09 Sodium Chloride IV Infused Q24H [facility] Infusion Metronidazole 500 mg in 100 mls @ 100 mls/hr 02/07/20 23:00 02/11/20 06:15 Flagyl IV 100 mls/hr Q8H [facility] Administration Ondansetron HCl 4 mg 02/07/20 18:28 02/09/20 12:42 Ondansetron Hcl 4 Mg/2 Ml Vial IVPUSH 4 mg Q8H PRN Administration Nausea and Vomiting Oxybutynin Chloride 5 mg 02/08/20 09:00 02/10/20 08:06 Oxybutynin Chloride Er 5 Mg Tab.Er.24 PO 5 mg DAILY [facility] Administration Pharmacy Consult 1 each 02/07/20 17:33 Consult Rx Perform Med Rec MISCELLANE ONCE PRN Consult order Sodium Chloride 3 ml 02/08/20 00:00 02/10/20 23:09 0.9 % Sodium Chloride Flush 3 Ml Syringe IVFLUSH 3 ml QSHIFT [facility] Administration Time Spent With Patient Time: Total time spent is greater than 50% in coordination of care (as documented) at patient's floor/unit and/or counseling patient: Time with patient: 15 - 24 minutes
[2020-02-11 07:15] VITALS: BP 139/71; PULSE 76; RESP 20; TEMP 36.6; O2SAT 99
--- NOTE | 2020-02-11 07:45 | HO.POSTANES ---
Post Anesthesia Evaluation Post Anesthesia Evaluation Vital Signs: Vital Signs Temp Pulse Resp BP Pulse Ox 02/11/20 07:15 97.9 F 76 20 139/71 99 02/11/20 03:58 97.3 F 78 20 139/73 98 02/11/20 00:00 98.1 F 86 20 137/72 99 Anesthesia: General Mental Status: Awake Pain Control: Satisfactory Nausea/Vomiting: None Hydration: Adequate Anesthesia-Related Issues: No Anes. Related Issues
[2020-02-11] MEDS: 0.9 % Sodium Chloride Flush 3 ML SYRINGE IVFLUSH ×3 (08:04→23:11)
[2020-02-11 10:14] LABS: Alanine Aminotransferase 53 U/L (0-40); Albumin Level 2.7 g/dL (3.5-5.0); Alkaline Phosphatase 1073 U/L (39-117); Anion Gap 16 (12-20); Aspartate Amino Transferase 107 U/L (5-37); Bilirubin Total 3.7 mg/dL (0.0-1.0); Blood Urea Nitrogen 18 mg/dL (9-16); Calcium 8.3 mg/dL (8.4-10.2); Carbon Dioxide 21 mmol/L (22-29); Chloride 106 mmol/L (96-108); Estimated Glomerular Filt Rate > 60; Glucose Random 89 mg/dL (60-115); Potassium 4.5 mmol/l (3.3-5.1); Sodium 138 mmol/L (135-145); Total Protein 5.6 g/dL (6.5-8.0)
[2020-02-11 11:32] VITALS: BP 119/67; PULSE 76; RESP 19; TEMP 36.5; O2SAT 98
--- NOTE | 2020-02-11 11:33 | MHC.CM.PN ---
NURSE NUCLEAR MEDICINE TECH NOTE ELECTRONIC MEDICAL RECORD REVIEWED ALONG WITH CASE DISCUSSED ON MULTIPLE DISCIPLINARY ROUNDS PER HOSPITALIST PATIENT S LFTS LABS INCREASED. HOSPITALIST WILL TALK WITH PATIENT AND HIS DAUGHTER JUMANA [phone] TELEPHONE CALL TO [facility] AND SPOKE WITH RUTHY SHE REPORTED THAT PATIENT IS ACTIVE WITH THEM, HE RECEIVES DAILY NURSING VISITS FOR MEDICATION MANAGEMENT , DIAGNOSIS SIGN SYMPTOM MANAGEMENT, BLOOD PRESSURE CHECKS, (THEY WILL NEED TO HAVE DISCHARGE ORDERS IN BY 2PM [facility] PHONE [phone] AND FAX [phone] I TRIED TO REACH PATIENTS DAUGHTER JUMANA ROWELL [phone] MESSAGE LEFT FOR HER T CONTACT ME I SPOKE WITH DON AT [facility] AND SHE REPROTED THAT PATIENT HAS INS AUTHORIZATION THROUGH THE , SHE ALSO INFORMED ME THAT PATIENT RECIVES SERVICES THROUGH [employer] YE[employer] 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 [facility] NURSING FOR MEDICATION MANAGEMENT AND DISEASE SIGHN SYMPTOM MANAGEMENT 2 ANDREW YEARS FOR 11 HOURS WEEK FOR SKIP LOADER , 4.5 HOURS FOR HOMEMAKER PER WEEK 3.PCP DR [facility]/11/2020
--- NOTE | 2020-02-11 14:08 | PM.GIPN ---
Subjective Subjective Date of Service: 02/11/20 Interval History: eating with no problems denies abdominal pain Physical Exam Vital Signs: Vital Signs: Last Vital Signs Temp 97.7 F 02/11/20 11:32 Pulse 76 02/11/20 11:32 Resp 19 02/11/20 11:32 BP 119/67 02/11/20 11:32 Pulse Ox 98 02/11/20 11:32 Body Mass Index 24.0 Const: General: cooperative, alert and awake GI: Palpation (GI): Soft to palpation and No hepatosplenomegaly present Extrem: General: Yes no clubbing, cyanosis or edema Objective Data Labs CBC & Chem 7: 02/10/20 06:07 02/11/20 09:13 Labs: Laboratory Results - last 24 hr 02/11/20 09:13 Sodium 138 Potassium 4.5 Chloride 106 Carbon Dioxide 21 L Anion Gap 16 BUN 18 H Creatinine 0.83 Estim Creat Clear Calc 58.0 Estimated GFR > 60 Random Glucose 89 Calcium 8.3 L Total Bilirubin 3.7 H AST 107 H ALT 53 H Alkaline Phosphatase 1073 H D Total Protein 5.6 L Albumin 2.7 L Progress Note: A&P Assessment and plan (1) Choledocholithiasis: Status: Acute Assessment and Plan: doing well s/p ERCP bilirubin improving alk phos lagging behind ok to d/c f/u lfts as outpt Time Spent With Patient Time: Total time spent is greater than 50% in coordination of care (as documented) at patient's floor/unit and/or counseling patient: Time with patient: less than 15 minutes
--- NOTE | 2020-02-11 15:26 | HO.PM.IMPN ---
Subjective Subjective Date of Service: 02/11/20 Interval History: patient seen and examined at bedside patient reported some cough Constitutional Constitutional: Denies chills and Denies fever(s) Cardiovascular Cardiovascular: Denies chest pain and Denies dyspnea Respiratory Respiratory: Denies dyspnea Gastrointestinal Gastrointestinal: Denies abdominal pain, Denies diarrhea, Denies nausea and Denies vomiting Physical Exam Vital Signs: Vital Signs: Last Vital Signs Temp 97.7 F 02/11/20 11:32 Pulse 76 02/11/20 11:32 Resp 19 02/11/20 11:32 BP 119/67 02/11/20 11:32 Pulse Ox 98 02/11/20 11:32 Body Mass Index 24.0 Const: Nutritional Appearance: well nourished Orientation/consciousness: patient oriented x3 HENMT: Head: Yes normocephalic and Yes atraumatic Eyes: Other: scleral icterus Chest: Chest palpation & inspection: normal inspection of the chest Resp: Effort & Inspection: normal respiratory effort and no respiratory distress Auscultation: clear to auscultation bilaterally Cardio: Rate: regular rate Rhythm: regular rhythm GI: Palpation (GI): Soft to palpation and nontender Skin: General skin exam: jaundice Neuro: General: patient oriented x3 Extrem: General: Yes normal to inspection Objective Data Current Medications Generic Name Dose Route Start Last Admin Trade Name Freq PRN Reason Stop Dose Admin Docusate Sodium 100 mg 02/07/20 18:28 02/09/20 08:01 Docusate Sodium 100 Mg Capsule PO 100 mg DAILY PRN Administration Constipation Ceftriaxone Sodium 1 gm/ 50 mls @ 100 mls/hr 02/07/20 23:00 02/10/20 23:09 Sodium Chloride IV Infused Q24H HARRIS Infusion Metronidazole 500 mg in 100 mls @ 100 mls/hr 02/07/20 23:00 02/11/20 14:44 Flagyl IV 100 mls/hr Q8H [facility]IS Administration Ondansetron HCl 4 mg 02/07/20 18:28 02/09/20 12:42 Ondansetron Hcl 4 Mg/2 Ml Vial IVPUSH 4 mg Q8H PRN Administration Nausea and Vomiting Oxybutynin Chloride 5 mg 02/08/20 09:00 02/11/20 08:03 Oxybutynin Chloride Er 5 Mg Tab.Er.24 PO 5 mg DAILY HARRIS Administration Pharmacy Consult 1 each 02/07/20 17:33 Consult Rx Perform Med Rec MISCELLANE ONCE PRN Consult order Sodium Chloride 3 ml 02/08/20 00:00 02/11/20 08:04 0.9 % Sodium Chloride Flush 3 Ml Syringe IVFLUSH 3 ml QSHIFT [facility] Administration Labs CBC & Chem 7: 02/10/20 06:07 02/11/20 09:13 Microbiology Microbiology Results: Microbiology 02/09/20 07:12 Blood - Venous Blood Culture - Preliminary No growth after 48 hours. 02/09/20 07:12 Blood - Venous Blood Culture - Preliminary No growth after 48 hours. 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 Obstructive jaundice Transaminitis MRCP shows CBD stone status post ERCP with removal of stone LFTs trended up little today discussed with GI recommended following LFTs likely post procedure GI following monitor LFTs seen by surgery patient was initially refusing cholecystectomy but now agreed for that, surgeon will talk to the family Bacteremia Blood cultures growing Klebsiella and Streptococcus continue Rocephin and Flagyl id consulted recommended continue same IV antibiotic follow-up repeat blood culture Generalized weakness PT evaluated recommended no skilled PT Hyponatremia Sodium of 131 at presentation, resolved Secondary to dehydration Anemia Seems to be chronic to check iron studies DVT ppx Hold lovenox
--- NOTE | 2020-02-11 15:41 | PM.EVENT ---
Event Note Date of Service: 02/11/20 Event Note: pt apparently stated to Hospitalist that he was willing to go for cholecystectomy reexamined him this afternoon - he states he does not want to have surgery had a long discussion with him about procedure, risks, benefits he says he does not have pain, says he wants to go home I had called his family multiple times - [phone]; no one picking up; left message abd soft, not tender total bili still elevated continue to trend LFTs will continue to attempt to call family
[2020-02-11 15:57] VITALS: BP 124/67; PULSE 70; RESP 68; TEMP 36.7; O2SAT 99
[2020-02-11 17:58] LABS: Hepatitis B Core Antibody IgM NON-REACTIVE (NON-REACTIVE)
[2020-02-11 19:47] VITALS: BP 132/75; PULSE 69; RESP 18; TEMP 36.6; O2SAT 94
[2020-02-11] MEDS: cefTRIAXone sodium 1 GM in 0.9 % Sodium Chloride 50 ML IV (22:22)
[2020-02-12 00:45] VITALS: BP 141/64; PULSE 66; RESP 16; TEMP 36.4; O2SAT 98
[2020-02-12 03:25] VITALS: BP 142/64; PULSE 66; RESP 16; TEMP 36.2; O2SAT 99
[2020-02-12] MEDS: metroNIDAZOLE/NS 500 MG/100 ML PIGGYBACK 100 MG IV (06:34)
[2020-02-12 07:27] LABS: Alanine Aminotransferase 46 U/L (0-40); Albumin Level 2.8 g/dL (3.5-5.0); Alkaline Phosphatase 972 U/L (39-117); Anion Gap 15 (12-20); Aspartate Amino Transferase 93 U/L (5-37); Bilirubin Total 3.3 mg/dL (0.0-1.0); Blood Urea Nitrogen 15 mg/dL (9-16); Carbon Dioxide 21 mmol/L (22-29); Chloride 106 mmol/L (96-108); Creatinine Clr Calc Pharmacy 60.2; Estimated Glomerular Filt Rate > 60; Glucose Random 98 mg/dL (60-115); Potassium 3.7 mmol/l (3.3-5.1); Sodium 138 mmol/L (135-145); Total Protein 5.4 g/dL (6.5-8.0)
[2020-02-12 07:51] VITALS: BP 155/93; PULSE 72; RESP 18; TEMP 36.2; O2SAT 100
[2020-02-12 08:01] LABS: ~Hepatitis A Antibody IgM Nonreactive (Nonreactive)
[2020-02-12 11:22] VITALS: BP 140/75; PULSE 77; RESP 18; TEMP 36.1; O2SAT 98
--- NOTE | 2020-02-12 12:07 | PM.DS ---
DS: Providers Provider Date of admission: 02/07/20 17:13 Primary care physician: Unknown Physician Consults: 02/07/20 18:28 Consult to Gastroenterology Routine Consulting Provider: Cristiano Berger Reason for consultation: obstructive jaundice Has provider been notified: No 02/09/20 12:03 Consult to Infectious Diseases Routine Consulting Provider: Julia Royal Reason for consultation: Evaluation for positive blood culture: GPX + GNR, obstructive jaundce 02/10/20 15:41 Consult to General Surgery Routine Consulting Provider[place] [facility] [place] [facility] Reason for consultation: gallstones, s/p ERCP for CBD stone Has provider been notified: No DS: Diagnosis Discharge Diagnosis (1) Obstructive jaundice: Status: Acute DS: Medications Discharge Medications Home Medications: Home Medications Medication Instructions Recorded Confirmed albuterol sulfate 2.5 mg INHALATION QID PRN 12/14/19 02/07/20 albuterol sulfate 90 mcg/actuation 2 puff PO Q4-6H PRN 12/14/19 02/07/20 aerosol inhaler atorvastatin 20 mg tablet 20 mg PO DAILY 12/14/19 02/07/20 benztropine 0.5 mg tablet 0.5 mg PO BEDTIME 12/14/19 02/07/20 buprenorphine 8 mg-naloxone 2 mg 2 film SUBLINGUAL DAILY 12/14/19 02/07/20 sublingual film cyanocobalamin (vitamin B-12) 1,000 mcg PO DAILY 12/14/19 02/07/20 1,000 mcg tablet docusate sodium 100 mg capsule 100 mg PO BID 12/14/19 02/07/20 fluticasone 250 mcg-salmeterol 50 1 ea INHALATION Q12H 12/14/19 02/07/20 mcg/dose blistr powdr for inhalation haloperidol lactate 2 mg/mL oral 1 mg PO BEDTIME 12/14/19 02/07/20 concentrate multivitamin 1 tab PO DAILY 12/14/19 02/07/20 naloxone 4 mg/actuation nasal spray 1 spray INTRANASAL ONCE PRN 12/14/19 02/07/20 omeprazole 40 mg capsule,delayed 40 mg PO DAILY 12/14/19 02/07/20 release quetiapine 100 mg tablet 150 mg PO BEDTIME 12/14/19 02/07/20 quetiapine 50 mg tablet 50 mg PO BID@0900,1700 12/14/19 02/07/20 sertraline 100 mg tablet 100 mg PO DAILY 12/14/19 02/07/20 tamsulosin 0.4 mg capsule 0.4 mg PO DAILY 12/14/19 02/07/20 trazodone 100 mg tablet 100 mg PO BEDTIME 12/14/19 02/07/20 umeclidinium 62.5 mcg/actuation 1 inh INHALATION DAILY 12/14/19 02/07/20 blister powder for inhalation Previous Rx's Medication Instructions Recorded oxybutynin chloride 5 mg 5 mg PO DAILY 30 Days #30 tab 12/31/19 tablet,extended release 24 hr cefuroxime axetil 500 mg PO BID 10 Days #28 tab 02/12/20 DS: Summary Hospital Course Hospital Course: HPI from admission 79-year-old Maltese-speaking male who presented to the emergency department with complaints of weakness. The triage note indicates he reported being tired and weak. He initially stated that he had fallen 2 weeks prior as well. Then said he fell yesterday and again changed his story and said that he did not fall at all. In general the patient is a vague historian. During my evaluation he reported no pain, weakness or any other symptoms. He was noted to be jaundiced but could not tell how long that has been going on. He did report dark urine for the past 1 week. For this reason he had called his primary care physician who reportedly prescribed a medication but he cannot recall the medication name or what it was for. workup in the emergency department revealed markedly elevated LFTs with total bilirubin 10.9, direct bilirubin 8.4, alkaline phosphatase 670, AST 83, ALT 49. Previous LFTs from [address] scan of the abdomen showed cholelithiasis, intrahepatic and extrahepatic ductal dilatation. Gi recommended admission and MRCP for further evaluation. hospital course 79-year-old male admitted with choledocholithiasis and elevated LFTs secondary to obstructing CBD stone, MRCP shows CBD dilatation and CBD stone, patient was seen by Gastroenterology patient underwent ERCP with removal of stone , patient was also found to have Klebsiella and Streptococcus bacteremia likely secondary to obstructive stone, patient was seen by ID recommended continue IV Rocephin, repeat blood cultures were negative, patient's symptoms improved, LFTs trended down , patient was seen by surgery and patient was offered cholecystectomy, but patient refused surgery, discussed with patient and his daughter explained to them the risk of cholangitis, pancreatitis from gallstones, patient and family understands the risk, but patient was still refusing surgery, patient was stable discharged home on p.o. Ceftin patient will follow up Dr. Diaz as outpatient and will consider surgery as outpatient, Time Spent with Patient Time attestation: Total time spent providing and/or coordinating discharge services: Physical Exam Vital Signs: Vital Signs: Last Vital Signs Temp 96.9 F 02/12/20 11:22 Pulse 77 02/12/20 11:22 Resp 18 02/12/20 11:22 BP 140/75 H 02/12/20 11:22 Pulse Ox 98 02/12/20 11:22 Body Mass Index 24.0 Const: Nutritional Appearance: well nourished Orientation/consciousness: patient oriented x3 HENMT: Head: Yes normocephalic and Yes atraumatic Eyes: Other: scleral icterus Chest: Chest palpation & inspection: normal inspection of the chest Resp: Effort & Inspection: normal respiratory effort and no respiratory distress Auscultation: clear to auscultation bilaterally Cardio: Rate: regular rate Rhythm: regular rhythm GI: Palpation (GI): Soft to palpation and nontender Skin: General skin exam: jaundice Neuro: General: patient oriented x3 Cranial nerves: Yes CN's II-XII intact bilaterally and Yes Bilaterally intact EOM present Extrem: General: Yes normal to inspection DS: Data Data Completed and Pending Labs on day of discharge: 02/07/20 ECG 12 lead EKG Stat 02/07/20 11:04 XR chest 1V Stat 02/07/20 11:12 EKG Documentation DIRECTED 02/07/20 11:30 0.9 % Sodium Chloride [Ns] 1,000 ml IVCONT 999 mls/hr 02/07/20 11:34 CT head/brain wo con Stat 02/07/20 11:43 Basic Metabolic Panel Stat Complete Blood Count Auto Diff Stat Hepatitis A,B,C Profile Routine Hold Lt Blue - Possible Coag Stat Lactic Acid Stat Liver Panel Stat Magnesium Stat Partial Thromboplastin Time Stat Prothrombin Time INR Stat SARS-CoV2/FLU/RSV Stat Troponin-I High Sensitivity Stat 02/07/20 12:24 Blood Culture X2 [BC] Stat 02/07/20 13:45 0.9 % Sodium Chloride [Ns] 1,000 ml IVCONT 999 mls/hr 02/07/20 13:48 CT abdomen pelvis w con Stat 02/07/20 14:23 Add Laboratory Test Stat 02/07/20 14:47 iohexoL 350 MG/ML [Omnipaque 350 MG/ML] 100 ml IV ONCE ONE 02/07/20 17:03 Transfer Order Routine 02/07/20 Dinner NPO Diet Regular Diet 02/08/20 00:07 cefTRIAXone sodium [Rocephin] 1 gm .ROUTE .STK-MED ONE 02/08/20 06:47 Basic Metabolic Panel DAILY@0600 Complete Blood Count Auto Diff DAILY@0600 Ferritin Routine IRON PROFILE Routine Liver Panel DAILY@0600 Prothrombin Time INR DAILY@0600 02/08/20 09:53 MR MRCP Stat 02/08/20 12:02 Add Laboratory Test Urgent 02/08/20 15:54 Phytonadione (Vit K1) [Vitamin K] 10 mg 0.9 % Sodium Chloride [Ns] 50 ml IV ONCE 02/08/20 22:45 cefTRIAXone sodium [Rocephin] 1 gm .ROUTE .STK-MED ONE 02/09/20 07:12 Basic Metabolic Panel DAILY@0600 Complete Blood Count no Diff DAILY@0600 Liver Panel Routine Prothrombin Time INR Routine 02/09/20 09:52 polyethylene glycoL 3350 [Miralax] 17 gm PO ONCE ONE 02/09/20 Dinner Regular Diet 02/09/20 23:05 cefTRIAXone sodium [Rocephin] 1 gm .ROUTE .STK-MED ONE 02/10/20 06:07 Basic Metabolic Panel DAILY@0600 Complete Blood Count no Diff DAILY@0600 Liver Panel Routine 02/10/20 Breakfast NPO Diet 02/10/20 12:14 Glucagon,Human Recombinant [Glucagen] 1 mg .ROUTE .STK-MED ONE iohexoL 300 MG/ML [Omnipaque 300 MG/ML] 50 ml IV .STK-MED ONE 02/10/20 12:16 FL guidance in OR Stat 02/10/20 14:00 Lactated Ringers [Lr] 1,000 ml IVCONT 50 mls/hr 02/10/20 14:27 fentaNYL citrate/PF [Sublimaze] 50 mcg .ROUTE .STK-MED ONE 02/10/20 14:28 Lidocaine HCl 2 % MPF [Xylocaine 2 % MPF] 5 ml .ROUTE .STK-MED ONE 02/10/20 14:31 Succinylcholine Chloride [Quelicin] 100 mg IVPUSH .STK-MED ONE 02/10/20 14:52 Esmolol HCl [Brevibloc] 100,000 mcg .ROUTE .STK-MED ONE Glycopyrrolate [Robinul] 0.2 mg .ROUTE .STK-MED ONE Lidocaine HCl 2 % MPF [Xylocaine 2 % MPF] 5 ml .ROUTE .STK-MED ONE Rocuronium [place] [Zemuron] 100 mg IV .STK-MED ONE dexAMETHasone sod phosphate [Decadron] 4 mg .ROUTE .STK-MED ONE ondansetron HCL [Zofran] 4 mg .ROUTE .STK-MED ONE 02/10/20 14:53 propofoL [Diprivan] 200 mg IVPUSH .STK-MED ONE 02/10/20 14:54 Phenylephrine HCL 1,000 mcg IVPUSH .STK-MED ONE 02/10/20 14:55 Esmolol HCl [Brevibloc] 100,000 mcg .ROUTE .STK-MED ONE 02/10/20 15:13 Phenylephrine HCL 1,000 mcg IVPUSH .STK-MED ONE 02/10/20 15:43 Transfer Order Routine 02/10/20 22:32 cefTRIAXone sodium [Rocephin] 1 gm .ROUTE .STK-MED ONE 02/11/20 09:13 Comprehensive Met. Panel Routine 02/11/20 22:19 cefTRIAXone sodium [Rocephin] 1 gm .ROUTE .STK-MED ONE 02/12/20 06:17 Comprehensive Met. Panel DAILY@0600 Laboratory Last Values WBC 6.9 X10*3/uL (4.8-10.8) 02/10/20 06:07 RBC 3.54 X10*6/uL (4.60-5.80) L 02/10/20 06:07 Hgb 10.2 g/dl (14.0-18.0) L 02/10/20 06:07 Hct 30.5 % (42-52) L 02/10/20 06:07 MCV 86.2 fL (80-98) 02/10/20 06:07 MCH 28.8 pg (27.0-33.0) 02/10/20 06:07 MCHC 33.4 g/dl (31.0-36.0) 02/10/20 06:07 RDW 15.8 % (11.0-16.0) 02/10/20 06:07 Plt Count 263 X10*3/uL (160-400) 02/10/20 06:07 MPV 10.9 fL (9.4-12.4) 02/10/20 06:07 Immature Gran % (Auto) 1.1 % (0.0-0.4) H 02/08/20 06:47 Neut % (Auto) 75.2 % (45-73) H 02/08/20 06:47 Lymph % (Auto) 12.2 % (20-40) L 02/08/20 06:47 [place] % (Auto) 8.8 % (2-11) 02/08/20 06:47 Eos % (Auto) 2.6 % (0-4) 02/08/20 06:47 Baso % (Auto) 0.1 % (0-2) 02/08/20 06:47 Lymph # (Auto) 1.0 X10*3/uL (1.2-4.9) L 02/08/20 06:47 [place] # (Auto) 0.7 X10*3/uL (0.1-1.2) 02/08/20 06:47 Eos # (Auto) 0.2 X10*3/uL (0.0-0.4) 02/08/20 06:47 Baso # (Auto) 0.0 X10*3/uL (0.0-0.2) 02/08/20 06:47 Abs Immat Gran (auto) 0.09 X10*3/uL (0.00-0.03) H 02/08/20 06:47 Absolute Neuts (auto) 6.2 X10*3/uL (2.0-8.3) 02/08/20 06:47 Absolute Nucleated RBC 0.000 X10*3/uL (0.0-0.012) 02/10/20 06:07 Nucleated RBC % (auto) 0.0 /100WBC (0.0-0.2) 02/10/20 06:07 PT 14.3 SEC (10.8-13.0) H 02/09/20 07:12 INR 1.2 (0.9-1.1) H 02/09/20 07:12 APTT 38.4 SEC (24.1-38.0) H 02/07/20 11:43 Hold Blue Top SEE NOTE 02/07/20 11:43 Sodium 138 mmol/L (135-145) 02/12/20 06:17 Potassium 3.7 mmol/l (3.3-5.1) 02/12/20 06:17 Chloride 106 mmol/L (96-108) 02/12/20 06:17 Carbon Dioxide 21 mmol/L (22-29) L 02/12/20 06:17 Anion Gap 15 (-20) 02/12/20 06:17 BUN 15 mg/dL (9-16) 02/12/20 06:17 Creatinine 0.80 mg/dL (0.5-1.4) 02/12/20 06:17 Estim Creat Clear Calc 60.2 02/12/20 06:17 Estimated GFR > 60 02/12/20 06:17 Random Glucose 98 mg/dL (60-115) 02/12/20 06:17 Lactic Acid 0.9 mmol/L (0.5-2.0) 02/07/20 11:43 Calcium 8.0 mg/dL (8.4-10.2) L 02/12/20 06:17 Magnesium 2.1 mg/dL (1.6-2.6) 02/07/20 11:43 Iron 45 mcg/dL (45-160) 02/08/20 06:47 TIBC 179 mcg/dL (228-428) L 02/08/20 06:47 % Saturation 25 % (15-50) 02/08/20 06:47 Unsat Iron Binding 134 ug/dL 02/08/20 06:47 Ferritin 301 ng/mL (20-250) H 02/08/20 06:47 Total Bilirubin 3.3 mg/dL (0.0-1.0) H 02/12/20 06:17 Direct Bilirubin 2.5 mg/dL (0.0-0.5) H 02/10/20 06:07 AST 93 U/L (5-37) H 02/12/20 06:17 ALT 46 U/L (0-40) H 02/12/20 06:17 Alkaline Phosphatase 972 U/L (39-117) H 02/12/20 06:17 Troponin I High Sens < 3.5 ng/L (<3.5-35.0) 02/07/20 11:43 Total Protein 5.4 g/dL (6.5-8.0) L 02/12/20 06:17 Albumin 2.8 g/dL (3.5-5.0) L 02/12/20 06:17 Urine Color LIGIA 02/07/20 16:53 Urine Appearance CLEAR 02/07/20 16:53 Urine pH 6.5 (5.0-8.0) 02/07/20 16:53 Ur Specific [place] <= 1.005 (1.005-1.025) 02/07/20 16:53 Urine Protein NEG MG/DL (NEG-TRACE) 02/07/20 16:53 Urine Glucose (UA) NEG MG/DL (NEG) 02/07/20 16:53 Urine Ketones 5 MG/DL (NEG) 02/07/20 16:53 Urine Blood TRACE (NEG) 02/07/20 16:53 Urine Nitrite NEG (NEG) 02/07/20 16:53 Ur Leukocyte Esterase NEG (NEG) 02/07/20 16:53 Urine RBC 0-2 /HPF (0) 02/07/20 16:53 Urine WBC 0-2 /HPF (0-4) 02/07/20 16:53 Ur Squamous Epith Cells TRACE /LPF 02/07/20 16:53 Urine Bacteria TRACE /LPF 02/07/20 16:53 Coronavirus (PCR) NEGATIVE (Negative) 02/07/20 11:43 Hepatitis A IgM Ab Nonreactive (Nonreactive) 02/07/20 11:43 Hep Bs Antigen Negative (Negative) 02/07/20 11:43 Hep Bs Antibody NONREACTIVE (Nonreactive) 02/07/20 11:43 Hep B Core Total Ab Reactive (Nonreactive) 02/07/20 11:43 Hep B Core IgM Ab NON-REACTIVE (NON-REACTIVE) 02/07/20 11:43 Hepatitis C Ab (EIA) Nonreactive (Nonreactive) 02/07/20 11:43 Influenza Type A (PCR) NEGATIVE (Negative) 02/07/20 11:43 Influenza Type B (PCR) NEGATIVE (Negative) 02/07/20 11:43 RSV RNA Qual (PCR) NEGATIVE (Negative) 02/07/20 11:43 Preliminary micro results at discharge 02/09/20 07:12 Blood Culture - Preliminary Blood - Venous No growth after 48 hours. 02/09/20 07:12 Blood Culture - Preliminary Blood - Venous No growth after 48 hours. Discharge Plan Discharge Anticipated Discharge Date/Time: 02/12/20 11:47 Patient Disposition: Home, Self-Care Referrals: [facility] [Outside] (Daily nursing for medication maintenance. Please resume services.) Avni Diaz MD [Physician] - (choledocholithiasis for considering cholecystectomy as outpatient) Physician,Unknown [Primary Care Provider] - Discharge Medications: New cefuroxime axetil 500 mg tablet 500 mg PO BID 10 Days Qty: 28 RF: 0 Continued oxybutynin chloride 5 mg tablet extended release 24hr 5 mg PO DAILY 30 Days Qty: 30 RF: 3 Discharge Orders: Discharge Order (Routine); Ordered 02/12/20 Ordered By: Prince Harrison Diet: advance to usual diet Activity on Discharge: As tolerated Discharge Date/Time: 02/12/20 13:06 Other Ambulatory Orders: Liver Panel (Routine) Timeframe: 20200217 Facility: [facility] - Location: Laboratory Ordered By: Prince Harrison Visit Report Forms: Patient Portal Discharge page Care Plan Goals: treat bactremia Health Concerns: gall stones Plan of Treatment: po antibiotics
--- NOTE | 2020-02-12 12:47 | MHC.CM.PN ---
Pt to be d/c home at 1pm. Family to provide transportation.Spoke to [facility] care to resume services. D/C summary, d/c plan and labs sent with pt and faxed to agency per their request. Pt to call [facility] for Home Care resumption. IMM explained and signed. Form in Thai. 02/11 at 12:40.
--- NOTE | 2020-02-12 13:55 | P.F2F_ITS ---
Service Date Service Date: 02/12/20 Encounter Date of encounter: 02/10/20 Reasons for Services Reason for shelter: medication management Overseeing Care: Hallie Mcclendon Homebound: Leaving the home is medically contraindicated at this time without the asist of a device and/or another person due th the listed conditions above and below. Certification: Based on the above findings, I certify that this patient is confined to the home and needs intermittent shelter care, physical therapy and/or speech therapy, or continues to need occupational therapy. The patient is under my care, and I have initiated the establishment of the plan of care. The patient will be followed by a physician who will periodically review the plan of care.
== END 2020-02-12 13:06 | disposition home or self-care (01) | DRG 445 ==
LOC: HO.ED 16:03 → HO.S3 17:28
PROVIDERS: Internal Medicine Gastroenterology; Physician Assistant; Physician Assistant Medical; Admitting Provider Student in an Organized Health Care Education/Training Program; Emergency Provider Emergency Medicine Emergency Medical Services; Visit Provider Internal Medicine
PROC: 0F798DZ Dilation of Common Bile Duct with Intraluminal Device, Via Natural or Artificial Opening Endoscopic (ICD-10-PCS; CPT 43260; principal; 2020-02-10 13:20)
DX: K80.51 Calculus of bile duct without cholangitis or cholecystitis with obstruction (principal); E87.1 Hypo-osmolality and hyponatremia; E44.0 Moderate protein-calorie malnutrition; R78.81 Bacteremia; K21.9 Gastro-esophageal reflux disease without esophagitis; N40.0 Benign prostatic hyperplasia without lower urinary tract symptoms; E86.0 Dehydration; D64.9 Anemia, unspecified; F32.9 Major depressive disorder, single episode, unspecified; F17.210 Nicotine dependence, cigarettes, uncomplicated; Z20.828 Contact with and (suspected) exposure to other viral communicable diseases; Z71.6 Tobacco abuse counseling; R74.01 Elevation of levels of liver transaminase levels; Z68.24 Body mass index [BMI] 24.0-24.9, adult; B96.1 Klebsiella pneumoniae [K. pneumoniae] as the cause of diseases classified elsewhere; B95.4 Other streptococcus as the cause of diseases classified elsewhere; Z79.51 Long term (current) use of inhaled steroids; Z79.899 Other long term (current) drug therapy
CPT/HCPCS: 0241U; 36415; 70450; 71045; 74177; 74181; 80048; 80053; 80076; 81001; 82728; 83540; 83605; 83735; 84484; 85025; 85027; 85610; 85730; 86704; 86705; 86706; 86709; 86803; 87040; 87077; 87186; 87340; 93005; 97161; 99285; C1769; J0330; J0696; J1100; J1610; J2370; J2405; J3010; J3430; Q9967

== ENCOUNTER → 2020-02-20 08:29 | Outpatient (BNVA) | payer MEDICARE, SELFPAY | PROVIDERS: PCP Family Medicine; Visit Provider Surgery | DX: K80.20 Calculus of gallbladder without cholecystitis without obstruction (principal) | CPT/HCPCS: 99212 ==

== ENCOUNTER 2020-03-09 08:31 | Outpatient (REF) | payer MEDICARE, SELFPAY ==
--- NOTE | 2020-03-09 08:35 | CT_ITS ---
EXAMINATION: CT CHEST WITHOUT CONTRAST CLINICAL INFORMATION: Nicotine dependence. Follow-up pulmonary nodules COMPARISON: Previous chest CT scans most recent October 2018 TECHNIQUE: Multidetector volumetric CT imaging of the chest was done. Axial MIP volume rendering provided. Sagittal and coronal reformatted images were obtained. This CT examination was performed using dose optimization techniques as appropriate, variously including the following: *Automated exposure control *Adjustment of mA and/or kV according to patient size (this includes techniques or standardized protocols for targeted exams where dose is matched to indication/reason for exam; i.e. extremities or head) *Use of iterative reconstruction technique DLP: 154 mGy-cm FINDINGS: LUNGS: There is evidence of paraseptal emphysema. There is biapical pleural and parenchymal scarring, right greater than left that is stable. There is mild bronchiectasis. No endobronchial or endotracheal lesion is seen. The small pulmonary nodules are stable. Largest pulmonary nodule measures 2 x 5 mm in the posterior segment of the right upper lobe axial image 58 series 10. No new pulmonary nodule is seen.. 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 The thoracic aorta is normal in caliber. There is mild to moderate coronary artery calcification. There is a trace pericardial effusion or thickening that is stable. There is an esophageal hernia. There are no enlarged hilar or mediastinal lymph nodes. PLEURA: There is no pleural effusion. No pleural mass or thickening. AXILLA: No lymphadenopathy. UPPER ABDOMEN: Unremarkable. OSSEOUS STRUCTURES: There are degenerative changes of the spine. CT/CT chest wo con IMPRESSION: Severe emphysema. Stable biapical pleural and parenchymal scarring, right greater than left. Stable small pulmonary nodules, largest measuring 2 x 5 mm in the right upper lobe. Mild to moderate coronary artery calcification. Esophageal hernia.
== END 2020-03-09 08:32 | disposition home or self-care (01) ==
LOC: HO.CT 08:31
PROVIDERS: Visit Provider Family Medicine
DX: R91.8 Other nonspecific abnormal finding of lung field (principal); J44.9 Chronic obstructive pulmonary disease, unspecified; F17.200 Nicotine dependence, unspecified, uncomplicated
CPT/HCPCS: 71250

== ENCOUNTER → 2020-03-11 08:17 | Outpatient (REF) | payer MEDICARE, SELFPAY ==
--- NOTE | 2020-03-11 | NM_ITS ---
Lexiscan Myocardial perfusion study Indication: Shortness of breath, abnormal EKG Technique: The patient was brought in for a Lexiscan perfusion study on 03/11/2020 and was injected 0.4 mg of Lexiscan intravenously. Within a minute of this injection 25 mCi of sestamibi was given intravenously. Images were obtained using the SPECT gamma camera interlaced with the gating device. Images were obtained in supine position. Resting perfusion study was performed on 03/12/2020. Patient was administered 25 mCi of sestamibi intravenously at rest. Images were then obtained in supine position. Total DLP 55mGy-cm. Images were processed with the software and compared side to side in short axis, horizontal long axis and vertical long axis views. Findings: Raw acquisition was reviewed. The stress perfusion study showed diminished tracer uptake along the inferior wall. With CT attenuation correction, there is improvement which may indicate diaphragmatic attenuation artifact. Towards the apical inferior wall, the defect still persists in spite of CT attenuation correction. The gated study shows diminished LVEF at 32%, but visually appears higher. LV cavity is normal in size. The gated study shows normal wall thickening and contraction of segments. Resting study shows diminished tracer uptake along the inferior wall that improves with CT attenuation correction, except in the apical inferior part. Gating at rest reveals normal wall motion with ejection fraction at 40%. The findings are consistent with fixed inferior wall perfusion defect that could be from diaphragmatic attenuation artifact. Towards the apical inferior wall, possible nontransmural infarct. NM/NM anthony perf SPECT rest & str Impression: 1. Myocardial perfusion imaging study shows no clear evidence of any ischemia. Fixed defect along the inferior wall that mostly reverses with CT attenuation correction except in the apical inferior wall. This is indicative of diaphragmatic attenuation artifact and possible nontransmural infarct towards the apex. 2. Gated LVEF is diminished; automated calculation 32% during stress and 40% during rest but visually appears much higher. Correlate with echocardiogram. 3. Transient ischemic dilatation not present. EKG component of the test reported separately.
--- NOTE | 2020-03-11 08:30 | CA_ITS ---
Acquisition Time: 2020-03-11 08:33:39 Total Exercise Time: 00:02:00 Test Indications: Dyspnea Medications: Protocol: LEXISCAN Max HR: 108 BPM 77% of Pred: 140 BPM Max BP: 142/078 mmHG Max Work Load: 1.0 METS Pharmacological stress test using Lexiscan while sitting and moving his L arm. Pt toleratee well. Denies any anginal sx. EKG without any arrhythmias. Non-diagnostic for ischemia. Nuclear images to follow. Normotensive response to test. Pt c/o PARADA in recovery from Lexiscan. Sx reversed with Aminophyline 75 mg IV. Test reviewed with Dr. Chopra. Referred By: Yo Henriquez Overread By: Renato Thomas
[2020-03-11 09:51] LABS: Alanine Aminotransferase 16 U/L (0-40); Albumin Level 4.1 g/dL (3.5-5.0); Alkaline Phosphatase 143 U/L (39-117); Aspartate Amino Transferase 25 U/L (5-37); Bilirubin Direct 0.7 mg/dL (0.0-0.5); Bilirubin Total 1.1 mg/dL (0.0-1.0)
== END ==
LOC: HO.CARD 08:17
PROVIDERS: Internal Medicine; PCP Family Medicine; Visit Provider Internal Medicine Cardiovascular Disease
DX: R94.31 Abnormal electrocardiogram [ECG] [EKG] (principal); K80.50 Calculus of bile duct without cholangitis or cholecystitis without obstruction; K83.1 Obstruction of bile duct
CPT/HCPCS: 78452; 80076; 93017; A9500; J0280; J2785

== ENCOUNTER 2020-03-25 08:44 | Outpatient (REF) | payer MEDICARE, SELFPAY ==
--- NOTE | 2020-03-25 09:00 | PFT_ITS ---
Forced vital capacity normal. FEV1 is in normal range, but FEV1/FVC ratio is decreased. HDE39-41 moderately decreased. MVV slightly decreased. Post bronchodilator therapy, there is significant improvement in FEV1 and [id number]. LUNG VOLUMES: The patient was unable to perform adequate maneuver. SVC is normal. Diffusion capacity slightly decreased. CONCLUSION: There is evidence of mild to moderate degree of obstructive airway disorder. There is significant response to bronchodilator therapy resulting in complete reversibility. These findings are consistent with diagnosis of bronchial asthma. Clinical correlation recommended. Nando Oneal MD MSDeloris/MODL / [id number]
== END 2020-03-25 08:45 | disposition home or self-care (01) ==
LOC: HO.RESP 08:44
PROVIDERS: Visit Provider Family Medicine
DX: J44.9 Chronic obstructive pulmonary disease, unspecified (principal)
CPT/HCPCS: 94060; 94729

== ENCOUNTER 2020-05-06 09:30 | Outpatient (REF) | payer MEDICARE, SELFPAY ==
[2020-05-06 11:42] LABS: Prostate Specific Antigen 8.65 ng/mL (<0.05-4.0)
== END 2020-05-06 09:31 | disposition home or self-care (01) ==
LOC: HO.LAB 09:30
PROVIDERS: PCP Family Medicine; Visit Provider Urology
DX: R97.20 Elevated prostate specific antigen [PSA] (principal)
CPT/HCPCS: 36415; 84153

== ENCOUNTER → 2020-05-11 09:39 | Outpatient (BNVA) | payer MEDICARE, SELFPAY | PROVIDERS: PCP Family Medicine; Visit Provider Surgery | DX: D64.9 Anemia, unspecified (principal) | CPT/HCPCS: 99212 ==

== ENCOUNTER → 2020-05-28 10:04 | Outpatient (BNVA) | payer MEDICARE, SELFPAY | PROVIDERS: PCP Family Medicine; Visit Provider Nurse Practitioner | DX: Z13.89 Encounter for screening for other disorder (principal) | CPT/HCPCS: Q3014 ==

== ENCOUNTER → 2020-08-13 09:13 | Outpatient (BNVA) | payer MEDICARE, SELFPAY | PROVIDERS: PCP Family Medicine; Visit Provider Surgery Vascular Surgery | DX: I73.9 Peripheral vascular disease, unspecified (principal) | CPT/HCPCS: 99202 ==

== ENCOUNTER 2020-08-27 08:27 | Outpatient (REF) | payer MEDICARE, SELFPAY ==
--- NOTE | ~2020-08-27 | US_ITS ---
EXAMINATION: US NONINVASIVE ASSESSMENT OF THE BILATERAL LOWER EXTREMITIES WITH ARTERIAL DUPLEX AND ANKLE BRACHIAL INDICES (ABIS) CLINICAL INFORMATION: Peripheral vascular disease, unspecified COMPARISON: None TECHNIQUE: Duplex Doppler techniques with waveform analysis and measurement of velocities in the common femoral, profunda femoris, superficial femoral, popliteal and tibial arteries were performed. In addition, ankle pulse volume recordings, ankle pressure measurements and ankle brachial indices were obtained of the bilateral lower extremity arterial system. The study was performed only at rest. FINDINGS: NONINVASIVE ASSESSMENT OF THE ARTERIES OF BILATERAL LOWER EXTREMITIES WITH ABIs: RIGHT LEG: Ankle-brachial index: 1.15 Ankle PVR: Within normal limits LEFT LEG: Ankle-brachial index: 1.14 Left ankle PVR: Within normal limits MELISSA Reference: 0.9 - 1.4 = normal - no significant arterial disease 0.7 - 0.89 = mild peripheral arterial disease 0.51 - 0.69 = moderate peripheral arterial disease ? 0.50 = severe peripheral arterial disease RIGHT LOWER EXTREMITY DUPLEX ULTRASOUND: Common femoral artery: 92.7 cm/s. Diastolic flow reversal: Present Profunda femoris artery: 55.8 cm/s. Diastolic flow reversal: Present Superficial femoral artery (proximal): 64.4 cm/s. Diastolic flow reversal: Present Superficial femoral artery (mid): 84.4 cm/s. Diastolic flow reversal: Present Superficial femoral artery (distal): 86.4 cm/s. Diastolic flow reversal: Present Popliteal artery: 48.3 cm/s Diastolic flow reversal: Present Posterior tibial artery: 68.6 cm/s Diastolic flow reversal: Present Peroneal artery: 76.8 cm/s Diastolic flow reversal: Present LEFT LOWER EXTREMITY DUPLEX ULTRASOUND: Common femoral artery: 85 cm/s. Diastolic flow reversal: Present Profunda femoris artery: 42.8 cm/s. Diastolic flow reversal: Present Superficial femoral artery (proximal): 88.8 cm/s. Diastolic flow reversal: Present Superficial femoral artery (mid): 73.9 cm/s. Diastolic flow reversal: Present Superficial femoral artery (distal): 78.6 cm/s. Diastolic flow reversal: Present Popliteal artery: 60.9 cm/s Diastolic flow reversal: Present Posterior tibial artery: 72.7 cm/s Diastolic flow reversal: Present Peroneal artery: 55.4 cm/s Diastolic flow reversal: Present US/US arterial duplex LE BI IMPRESSION: No evidence of lower extremity arterial disease by MELISSA, PVR or duplex ultrasound criteria.
== END 2020-08-27 08:28 | disposition home or self-care (01) ==
LOC: HO.US 08:27
PROVIDERS: Referring Provider Nurse Practitioner Primary Care; Visit Provider Surgery Vascular Surgery
DX: I70.213 Atherosclerosis of native arteries of extremities with intermittent claudication, bilateral legs (principal)
CPT/HCPCS: 93923; 93925

== ENCOUNTER → 2020-09-01 09:03 | Outpatient (BNVA) | payer MEDICARE, SELFPAY | PROVIDERS: PCP Family Medicine; Visit Provider Surgery Vascular Surgery | DX: I73.9 Peripheral vascular disease, unspecified (principal); I83.11 Varicose veins of right lower extremity with inflammation | CPT/HCPCS: 99212 ==

== ENCOUNTER 2020-09-08 08:11 | Outpatient (REF) | payer MEDICARE, SELFPAY ==
--- NOTE | ~2020-09-08 | US_ITS ---
EXAMINATION: US LOWER EXTREMITY VENOUS ULTRASOUND (REFLUX EXAM), BILATERAL CLINICAL INDICATION: Lower extremity varicose veins. COMPARISON: None. TECHNIQUE: Color-flow triplex imaging and compression Doppler was performed to evaluate both the deep and the superficial systems bilaterally. To evaluate the superficial system, the examination was performed in the upright position. Color-flow Doppler ultrasound and compression ultrasound were utilized. In addition, maneuvers were utilized to demonstrate reflux. FINDINGS: 1. DEEP VENOUS ULTRASOUND OF THE RIGHT LOWER EXTREMITY: Common Femoral Vein: Compressible, normal respiratory variation and augmented flow. Femoral Vein: Compressible, normal color flow and augmentation. Popliteal Vein: Compressible, normal augmentation. Deep Reflux: There is no evidence of reflux in the deep system in either the common femoral vein or the popliteal vein. There is no evidence of a Nazario's cyst. 2. SUPERFICIAL ULTRASOUND WITH DOPPLER OF RIGHT LOWER EXTREMITY: GREAT SAPHENOUS VEIN: Saphenofemoral junction/proximal thigh: 0.7 cm; Reflux: 3.2 seconds of reflux. Mid thigh: 0.4 cm; Reflux: 2.2 seconds. Above knee: 0.4 cm; Reflux: 1.5 seconds. At knee: 0.3 cm; Reflux: 2.0 seconds. Below knee: 0.3 cm; Reflux: No evidence of reflux. Mid calf: 0.3 cm; Reflux: No evidence of reflux. Ankle: 0.3 cm; Reflux: No evidence of reflux. DUPLICATED GREAT SAPHENOUS VEIN: None. SMALL SAPHENOUS VEIN: Saphenopopliteal junction: 0.3 cm; No evidence of reflux. Mid calf: 0.2 cm; No evidence of reflux. Distal calf: 0.2 cm; No evidence of reflux. VEIN OF GIACOMINI: None imaged. PERFORATORS: Mid calf: 0.3 cm; No reflux. VARICOSITIES: Proximal thigh, arising from the saphenofemoral junction: 0.3 cm; Greater than 3.3 seconds of reflux. Proximal calf: 0.3 cm; Greater than 3.5 seconds of reflux. Mid calf: 0.2 cm; No reflux. 3. DEEP VENOUS ULTRASOUND OF THE LEFT LOWER EXTREMITY: Common Femoral Vein: Compressible, normal respiratory variation and augmented flow. Femoral Vein: Compressible, normal color flow and augmentation. Popliteal Vein: Compressible, normal augmentation. Deep Reflux: There is no evidence of reflux in the deep system in either the common femoral vein or the popliteal vein. There is no evidence of a Nazario's cyst. 4. SUPERFICIAL ULTRASOUND WITH DOPPLER OF LEFT LOWER EXTREMITY: GREAT SAPHENOUS VEIN: Saphenofemoral junction/proximal thigh: 0.6 cm; Reflux: 1.7 seconds of reflux. Mid thigh: 0.4 cm; Reflux: 1.4 seconds of reflux. Above knee: 0.4 cm; Reflux: No evidence of reflux. At knee: 0.4 cm; Reflux: No evidence of reflux. Below knee: 0.3 cm; Reflux: No evidence of reflux. Mid calf: 0.4 cm; Reflux: No evidence of reflux. Ankle: 0.3 cm; Reflux: No evidence of reflux. DUPLICATED GREAT SAPHENOUS VEIN: Medial: 0.4 cm at the junction; No reflux. SMALL SAPHENOUS VEIN: Saphenopopliteal junction: 0.2 cm; No evidence of reflux. Mid calf: 0.2 cm; No evidence of reflux. Distal calf: 0.3 cm; No evidence of reflux. VEIN OF GIACOMINI: None Imaged. PERFORATORS: Proximal calf, arising from the gastrocnemius: 0.7 cm; No reflux. VARICOSITIES: Distal thigh: 0.3 cm; Greater than 2.8 seconds of reflux. US/US venous duplex LE BI IMPRESSION: 1. Right great saphenous venous insufficiency. 2. Left great saphenous venous insufficiency. 3. No evidence of small saphenous venous insufficiency involving either lower extremity. 4. Bilateral refluxing varicosities. 5. No evidence of DVT or deep venous insufficiency.
== END 2020-09-08 08:12 | disposition home or self-care (01) ==
LOC: HO.US 08:11
PROVIDERS: Visit Provider Surgery Vascular Surgery
DX: I83.893 Varicose veins of bilateral lower extremities with other complications (principal); I83.11 Varicose veins of right lower extremity with inflammation
CPT/HCPCS: 93970

== ENCOUNTER → 2020-09-15 09:17 | Outpatient (BNVA) | payer MEDICARE, SELFPAY | PROVIDERS: PCP Family Medicine; Visit Provider Surgery Vascular Surgery | DX: I83.11 Varicose veins of right lower extremity with inflammation (principal) | CPT/HCPCS: 99212 ==

== ENCOUNTER 2020-10-01 11:02 | Emergency (ER) | payer MEDICARE, SELFPAY ==
--- NOTE | ~2020-10-01 | XR_ITS ---
EXAMINATION: XR CHEST CLINICAL INFORMATION: Dyspnea. COMPARISON: CT chest 03/09/2020 TECHNIQUE: Frontal view of the chest was obtained. FINDINGS: The lungs are well-expanded with increased bilateral pulmonary vascularity and interstitial prominence suggestive of pulmonary vascular congestion. Minimal atelectatic changes are seen in lingula and right lung base. The heart size is normal. No gross bony abnormality seen. XR/XR chest 1V IMPRESSION: Bilateral pulmonary vascular congestion. There is right lower lobe and lingular atelectasis.
[2020-10-01 11:10] VITALS: BP 121/79; PULSE 91; RESP 20; TEMP 37.1; O2SAT 95; BMI 32.4
--- NOTE | 2020-10-01 11:19 | ECG_ITS ---
Test Reason : CHEST DISCOMFORT Blood Pressure : / mmHG Vent. Rate : 086 BPM Atrial Rate : 086 BPM P-R Int : 142 ms QRS Dur : 130 ms QT Int : 398 ms P-R-T Axes : 051 -26 049 degrees QTc Int : 476 ms Normal sinus rhythm Left bundle branch block Abnormal ECG When compared with ECG of 07-FEB-2020 11:18, Left bundle branch block is now Present Referred By: Generic ED Physician Electronically Signed By:GARCIA SLAUGHTER MD
[2020-10-01 12:14] LABS: MANUAL DIFF FLAG NO
[2020-10-01 12:16] LABS: Basophils Percent Auto 0.2 % (0-2); Eosinophils Absolute Auto 0.3 X10*3/uL (0.0-0.4); Eosinophils Percent Auto 2.1 % (0-4); Hematocrit 39.8 % (42-52); Hemoglobin 13.5 g/dl (14.0-18.0); Imm Gran Abs Auto 0.06 X10*3/uL (0.00-0.03); Imm Gran Pct Auto 0.4 % (0.0-0.4); Lymphocytes Absolute Auto 1.4 X10*3/uL (1.2-4.9); Lymphocytes Percent Auto 10.3 % (20-40); Mean Corpuscular HGB Conc 33.9 g/dl (31.0-36.0); Mean Corpuscular Hemoglobin 30.5 pg (27.0-33.0); Mean Corpuscular Volume 89.8 fL (80-98); Mean Platelet Volume 9.8 fL (9.4-12.4); Monocytes Absolute Auto 0.8 X10*3/uL (0.1-1.2); Monocytes Percent Auto 5.3 % (2-11); Neutrophils Absolute Auto 11.5 X10*3/uL (2.0-8.3); Neutrophils Percent Auto 81.7 % (45-73); Platelet Count 225 X10*3/uL (160-400); Red Blood Count 4.43 X10*6/uL (4.60-5.80); Red Cell Distribution Width 13.8 % (11.0-16.0)
[2020-10-01 12:33] VITALS: BP 129/73; PULSE 77; RESP 16; O2SAT 96
[2020-10-01 12:41] LABS: Troponin-I High Sensitivity 6.7 ng/L (<3.5-35.0)
[2020-10-01 12:49] LABS: Anion Gap 13 (12-20); Blood Urea Nitrogen 24 mg/dL (9-16); Calcium 9.3 mg/dL (8.4-10.2); Carbon Dioxide 22 mmol/L (22-29); Chloride 108 mmol/L (96-108); Creatinine Clr Calc Pharmacy 49.2; Estimated Glomerular Filt Rate > 60; Glucose Random 87 mg/dL (60-115); Potassium 4.1 mmol/L (3.3-5.1); Sodium 139 mmol/L (135-145)
--- NOTE | 2020-10-01 12:52 | ED_ITS ---
HPI - SOB/Dyspnea General Chief Complaint: Dyspnea Stated Complaint: SOB chest discomfort Time Seen by Provider: 10/01/20 12:49 History of Present Illness HPI Narrative: Patient is an 80-year-old male with a history of asthma. Presents today with having an episode of shortness of breath. He has a history of also peripheral vascular disease. History of schizophrenia history of reflux. Patient claims that he had an episode of shortness of breath which has resolved. No chest pain currently. No chest pain earlier. No diaphoresis. No leg swelling. No history of heart attacks. No history of congestive heart failure. Related Data Home Medications Medication Instructions Recorded Confirmed albuterol sulfate 2.5 mg INHALATION QID PRN 12/14/19 05/12/20 albuterol sulfate 90 mcg/actuation 2 puff PO Q4-6H PRN 12/14/19 05/12/20 aerosol inhaler atorvastatin 20 mg tablet 20 mg PO DAILY 12/14/19 05/12/20 benztropine 0.5 mg tablet 0.5 mg PO BEDTIME 12/14/19 05/12/20 buprenorphine 8 mg-naloxone 2 mg 2 film SUBLINGUAL DAILY 12/14/19 05/12/20 sublingual film cyanocobalamin (vitamin B-12) 1,000 mcg PO DAILY 12/14/19 05/12/20 1,000 mcg tablet docusate sodium 100 mg capsule 100 mg PO BID 12/14/19 05/12/20 fluticasone 250 mcg-salmeterol 50 1 ea INHALATION Q12H 12/14/19 05/12/20 mcg/dose blistr powdr for inhalation haloperidol lactate 2 mg/mL oral 1 mg PO BEDTIME 12/14/19 05/12/20 concentrate multivitamin 1 tab PO DAILY 12/14/19 05/12/20 naloxone 4 mg/actuation nasal spray 1 spray INTRANASAL ONCE PRN 12/14/19 05/12/20 omeprazole 40 mg capsule,delayed 40 mg PO DAILY 12/14/19 05/12/20 release quetiapine 100 mg tablet 150 mg PO BEDTIME 12/14/19 05/12/20 quetiapine 50 mg tablet 50 mg PO BID@0900,1700 12/14/19 05/12/20 sertraline 100 mg tablet 100 mg PO DAILY 12/14/19 05/12/20 tamsulosin 0.4 mg capsule 0.4 mg PO DAILY 12/14/19 05/12/20 trazodone 100 mg tablet 100 mg PO BEDTIME 12/14/19 05/12/20 umeclidinium 62.5 mcg/actuation 1 inh INHALATION DAILY 12/14/19 05/12/20 blister powder for inhalation Previous Rx's Medication Instructions Recorded cefuroxime axetil 500 mg PO BID 10 Days #28 tab 02/12/20 tamsulosin 0.4 mg capsule 0.4 mg PO DAILY #90 cap 02/14/20 oxybutynin chloride 5 mg 5 mg PO DAILY 90 Days #90 tab 05/11/20 tablet,extended release 24 hr bisacodyl 5 mg tablet,delayed 10 mg PO BEDTIME 2 Days #4 tab 05/28/20 release bisacodyl 5 mg tablet,delayed 10 mg PO ONCE 1 Days #2 tab 09/17/20 release polyethylene glycol 3350 17 238 g PO ONCE 1 Days #238 g 09/17/20 gram/dose oral powder Allergies Allergy/AdvReac Type Severity Reaction Status Date / Time No Known Allergies Allergy Verified 10/01/20 11:10 Review of Systems Review of Systems: No fever no chills no chest pain or diaphoresis [facility] Past Medical History Medical History Asthma Chronic anemia COPD (chronic obstructive pulmonary disease) Depression Depression Dizziness Esophagitis Gallstones Gastritis GERD (gastroesophageal reflux disease) HTN (hypertension) Lung nodules Memory impairment Opioid dependence, uncomplicated Smoker ST segment depression Substance abuse Substance abuse Tobacco use disorder Transient alteration of awareness Undifferentiated schizophrenia Surgical History History of prostate biopsy Family History Family History Father No problems noted. Mother No problems noted. 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) Alcohol intake: never Patient Tobacco Use Status: Current everyday Tobacco user Cigarettes Per Day: 4 Second Hand Smoke Exposure: Yes Substance Use Type: Heroin Advance Directives: No Advance Directives Information Provided: Yes service: No Current occupational status: unemployed and disabled Physical Exam Vital Signs: Vital Signs: Last Vital Signs Temp 98.8 F 10/01/20 11:10 Pulse 77 10/01/20 12:33 Resp 16 10/01/20 12:33 BP 129/73 10/01/20 12:33 Pulse Ox 96 10/01/20 12:33 Body Mass Index 32.4 MDM - SOB/Dyspnea MDM Narrative Medical decision making narrative: Patient has no symptoms of shortness of breath at this time. Has a history of asthma. Chest x-ray showed questionable CHF. Patient's BNP is normal. No evidence for congestive heart failure. Patient's O2 sat is normal. Respiratory status back to baseline. Has albuterol at home. Will discharge patient home. Close follow-up outpatient basis. Patient's EKG showed a sinus rhythm heart rate was 80s there is a left bundle- branch block which is old. There is no changes. Will discharge patient home close follow-up outpatient basis. Lab Data Result diagrams: 10/01/20 12:07 10/01/20 12:07 Labs: Lab Results 10/01/20 10/01/20 10/01/20 Range/Units 12:07 12:07 12:07 WBC 14.0 H (4.8-10.8) X10*3/uL RBC 4.43 L D (4.60-5.80) X10*6/uL Hgb 13.5 L D (14.0-18.0) g/dl Hct 39.8 L D (42-52) % MCV 89.8 (80-98) fL MCH 30.5 (27.0-33.0) pg MCHC 33.9 (31.0-36.0) g/dl RDW 13.8 (11.0-16.0) % Plt Count 225 (160-400) X10*3/uL MPV 9.8 (9.4-12.4) fL Immature Gran % (Auto) 0.4 (0.0-0.4) % Neut % (Auto) 81.7 H (45-73) % Lymph % (Auto) 10.3 L (20-40) % [place] % (Auto) 5.3 (2-11) % Eos % (Auto) 2.1 (0-4) % Baso % (Auto) 0.2 (0-2) % Lymph # (Auto) 1.4 (1.2-4.9) X10*3/uL [place] # (Auto) 0.8 (0.1-1.2) X10*3/uL Eos # (Auto) 0.3 (0.0-0.4) X10*3/uL Baso # (Auto) 0.0 (0.0-0.2) X10*3/uL Abs Immat Gran (auto) 0.06 H (0.00-0.03) X10*3/uL Absolute Neuts (auto) 11.5 H (2.0-8.3) X10*3/uL Absolute Nucleated RBC 0.000 (0.0-0.012) X10*3/uL Nucleated RBC % (auto) 0.0 (0.0-0.2) /100WBC Sodium 139 (135-145) mmol/L Potassium 4.1 (3.3-5.1) mmol/L Chloride 108 (96-108) mmol/L Carbon Dioxide 22 (22-29) mmol/L Anion Gap 13 (12-20) BUN 24 H D (9-16) mg/dL Creatinine 1.14 (0.5-1.4) mg/dL Estim Creat Clear Calc 49.2 Estimated GFR > 60 Random Glucose 87 (60-115) mg/dL Calcium 9.3 D (8.4-10.2) mg/dL Troponin I High Sens 6.7 (<3.5-35.0) ng/L B-Natriuretic Peptide 12 (<100) pg/mL COVID-19 ([facility]) (Negative) COVID-19 Clin Com 10/01/20 Range/Units 13:40 WBC (4.8-10.8) X10*3/uL RBC (4.60-5.80) X10*6/uL Hgb (14.0-18.0) g/dl Hct (42-52) % MCV (80-98) fL MCH (27.0-33.0) pg MCHC (31.0-36.0) g/dl RDW (11.0-16.0) % Plt Count (160-400) X10*3/uL MPV (9.4-12.4) fL Immature Gran % (Auto) (0.0-0.4) % Neut % (Auto) (45-73) % Lymph % (Auto) (20-40) % [place] % (Auto) (2-11) % Eos % (Auto) (0-4) % Baso % (Auto) (0-2) % Lymph # (Auto) (1.2-4.9) X10*3/uL [place] # (Auto) (0.1-1.2) X10*3/uL Eos # (Auto) (0.0-0.4) X10*3/uL Baso # (Auto) (0.0-0.2) X10*3/uL Abs Immat Gran (auto) (0.00-0.03) X10*3/uL Absolute Neuts (auto) (2.0-8.3) X10*3/uL Absolute Nucleated RBC (0.0-0.012) X10*3/uL Nucleated RBC % (auto) (0.0-0.2) /100WBC Sodium (135-145) mmol/L Potassium (3.3-5.1) mmol/L Chloride (96-108) mmol/L Carbon Dioxide (22-29) mmol/L Anion Gap (12-20) BUN (9-16) mg/dL Creatinine (0.5-1.4) mg/dL Estim Creat Clear Calc Estimated GFR Random Glucose (60-115) mg/dL Calcium (8.4-10.2) mg/dL Troponin I High Sens (<3.5-35.0) ng/L B-Natriuretic Peptide (<100) pg/mL COVID-19 ([facility]) Negative (Negative) COVID-19 Clin Com See Note Discharge Plan Discharge Prescriptions: No Action tamsulosin 0.4 mg capsule 0.4 mg PO DAILY Qty: 90 RF: 2 oxybutynin chloride 5 mg tablet extended release 24hr 5 mg PO DAILY 90 Days Qty: 90 RF: 2 polyethylene glycol 3350 [Miralax] 17 gram/dose powder 238 g PO ONCE 1 Days Qty: 238 RF: 0 bisacodyl [Dulcolax (bisacodyl)] 5 mg tablet,delayed release (DR/EC) 10 mg PO ONCE 1 Days Qty: 2 RF: 0 cefuroxime axetil 500 mg tablet 500 mg PO BID 10 Days Qty: 28 RF: 0 umeclidinium 62.5 mcg/actuation blister with device 1 inh inhalation DAILY RF: 0 buprenorphine-naloxone 8-2 mg film 2 film sublingual DAILY RF: 0 quetiapine 50 mg tablet 50 mg PO BID@0900,1700 RF: 0 haloperidol lactate 2 mg/mL concentrate 1 mg PO BEDTIME RF: 0 trazodone 100 mg tablet 100 mg PO BEDTIME RF: 0 tamsulosin 0.4 mg capsule 0.4 mg PO DAILY RF: 0 quetiapine 100 mg tablet 150 mg PO BEDTIME RF: 0 omeprazole 40 mg capsule,delayed release(DR/EC) 40 mg PO DAILY RF: 0 cyanocobalamin (vitamin B-12) 1,000 mcg tablet 1,000 mcg PO DAILY RF: 0 sertraline 100 mg tablet 100 mg PO DAILY RF: 0 benztropine 0.5 mg tablet 0.5 mg PO BEDTIME RF: 0 multivitamin Tablet 1 tab PO DAILY RF: 0 albuterol sulfate 90 mcg/actuation HFA aerosol inhaler 2 puff PO Q4-6H PRN (Reason: Shortness Of Breath) RF: 0 albuterol sulfate 2.5 mg /3 mL (0.083 %) solution for nebulization 2.5 mg inhalation QID PRN (Reason: Shortness Of Breath) RF: 0 docusate sodium 100 mg capsule 100 mg PO BID RF: 0 fluticasone propion-salmeterol 250-50 mcg/dose blister with device 1 ea inhalation Q12H RF: 0 atorvastatin 20 mg tablet 20 mg PO DAILY RF: 0 naloxone 4 mg/actuation spray,non-aerosol 1 spray intranasal ONCE PRN (Reason: Opioid Reversal) RF: 0 bisacodyl [Dulcolax (bisacodyl)] 5 mg tablet,delayed release (DR/EC) 10 mg PO BEDTIME 2 Days Qty: 4 RF: 0
[2020-10-01 13:23] LABS: B Type Natriuretic Peptide 12 pg/mL (<100)
[2020-10-01 14:00] LABS: COVID-19 Test Negative (Negative); IDNOW Serial# 9DD0AD1C
== END 2020-10-01 14:55 | disposition home or self-care (01) ==
PROVIDERS: Emergency Provider Emergency Medicine Emergency Medical Services; PCP Family Medicine
DX: J45.901 Unspecified asthma with (acute) exacerbation (principal); Z20.822 Contact with and (suspected) exposure to COVID-19; R06.02 Shortness of breath; F17.210 Nicotine dependence, cigarettes, uncomplicated; Z79.899 Other long term (current) drug therapy
CPT/HCPCS: 36415; 71045; 80048; 83880; 84484; 85025; 87635; 93005; 99283; 99284

== ENCOUNTER 2020-10-12 08:33 | Emergency (ER) | payer MEDICARE, SELFPAY ==
--- NOTE | ~2020-10-12 | XR_ITS ---
EXAMINATION: XR CHEST CLINICAL INFORMATION: Cough, pain COMPARISON: Chest radiographs 10/01/2020, 09/20/2019; CT chest noncontrast 03/09/2020 TECHNIQUE: AP and lateral views of the chest are obtained. FINDINGS: AP view is mildly rotated. There is coarsening of the interstitial markings. Bibasilar atelectatic changes are again seen. There is a groundglass opacities central left upper lobe, new finding from recent imaging 10/01/2020. There is no effusion. The heart is within normal size. The visualized hilar and mediastinal contours and bony structures are stable. XR/XR chest 2V IMPRESSION: 1. New groundglass opacity central right upper lobe when compared with recent imaging 10/01/2020. 2. Coarsening interstitial markings with bibasilar atelectasis. No effusion.
[2020-10-12 09:10] VITALS: BP 128/70; PULSE 77; RESP 16; TEMP 36.7; O2SAT 97
--- NOTE | 2020-10-12 09:34 | ECG_ITS ---
Test Reason : BACK PAIN Blood Pressure : / mmHG Vent. Rate : 069 BPM Atrial Rate : 069 BPM P-R Int : 140 ms QRS Dur : 128 ms QT Int : 422 ms P-R-T Axes : 066 -24 031 degrees QTc Int : 452 ms Normal sinus rhythm with sinus arrhythmia Left bundle branch block Abnormal ECG When compared with ECG of 01-OCT-2020 11:54, No significant change was found Referred By: Roxanne Kirk Electronically Signed By:Kadeem French
[2020-10-12] MEDS: Albuterol/Iprat 2.5/0.5MG 3 ML AMPUL.NEB INHALE (10:04)
[2020-10-12 10:05] VITALS: PULSE 68; O2SAT 96
[2020-10-12 10:05] LABS: MANUAL DIFF FLAG NO
--- NOTE | 2020-10-12 10:06 | ED.GENADULT ---
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 The patient has a history of asthma and has an MDI and nebulizer machine at home which he uses intermittently. He was seen here on October 01 and diagnosed with asthma exacerbation. He his primary care doctor after this and was on a course of prednisone which he feels like helped him for a brief period of time. He is complaining of some shortness of breath increased from baseline and a dry cough. No leg swelling or pain. No chest pain, fevers, chills. He has received a COVID vaccine x2. No recent travel. No sick contact. Related Data Home Medications Medication Instructions Recorded Confirmed albuterol sulfate 2.5 mg INHALATION QID PRN 12/14/19 05/12/20 albuterol sulfate 90 mcg/actuation 2 puff PO Q4-6H PRN 12/14/19 05/12/20 aerosol inhaler atorvastatin 20 mg tablet 20 mg PO DAILY 12/14/19 05/12/20 benztropine 0.5 mg tablet 0.5 mg PO BEDTIME 12/14/19 05/12/20 buprenorphine 8 mg-naloxone 2 mg 2 film SUBLINGUAL DAILY 12/14/19 05/12/20 sublingual film cyanocobalamin (vitamin B-12) 1,000 mcg PO DAILY 12/14/19 05/12/20 1,000 mcg tablet docusate sodium 100 mg capsule 100 mg PO BID 12/14/19 05/12/20 fluticasone 250 mcg-salmeterol 50 1 ea INHALATION Q12H 12/14/19 05/12/20 mcg/dose blistr powdr for inhalation haloperidol lactate 2 mg/mL oral 1 mg PO BEDTIME 12/14/19 05/12/20 concentrate multivitamin 1 tab PO DAILY 12/14/19 05/12/20 naloxone 4 mg/actuation nasal spray 1 spray INTRANASAL ONCE PRN 12/14/19 05/12/20 omeprazole 40 mg capsule,delayed 40 mg PO DAILY 12/14/19 05/12/20 release quetiapine 100 mg tablet 150 mg PO BEDTIME 12/14/19 05/12/20 quetiapine 50 mg tablet 50 mg PO BID@0900,1700 12/14/19 05/12/20 sertraline 100 mg tablet 100 mg PO DAILY 12/14/19 05/12/20 tamsulosin 0.4 mg capsule 0.4 mg PO DAILY 12/14/19 05/12/20 trazodone 100 mg tablet 100 mg PO BEDTIME 12/14/19 05/12/20 umeclidinium 62.5 mcg/actuation 1 inh INHALATION DAILY 12/14/19 05/12/20 blister powder for inhalation Previous Rx's Medication Instructions Recorded cefuroxime axetil 500 mg tablet 500 mg PO BID 10 Days #28 tab 02/12/20 tamsulosin 0.4 mg capsule 0.4 mg PO DAILY #90 cap 02/14/20 oxybutynin chloride 5 mg 5 mg PO DAILY 90 Days #90 tab 05/11/20 tablet,extended release 24 hr bisacodyl 5 mg tablet,delayed 10 mg PO BEDTIME 2 Days #4 tab 05/28/20 release (Dulcolax (bisacodyl)) bisacodyl 5 mg tablet,delayed 10 mg PO ONCE 1 Days #2 tab 09/17/20 release (Dulcolax (bisacodyl)) polyethylene glycol 3350 17 238 g PO ONCE 1 Days #238 g 09/17/20 gram/dose oral powder (Miralax) prednisone 20 mg tablet 40 mg PO DAILY 5 Days #10 tab 10/01/20 albuterol sulfate 90 mcg/actuation 2 puff INHALATION Q6H PRN #6.7 g 10/12/20 aerosol inhaler cyclobenzaprine 10 mg tablet 10 mg PO TID PRN #8 tab 10/12/20 doxycycline monohydrate 100 mg 100 mg PO BID #14 cap 10/12/20 capsule lidocaine 5 % topical patch 1 patch TOPICAL DAILY #15 ea 10/12/20 (Lidoderm) prednisone 20 mg tablet 40 mg PO DAILY #10 tab 10/12/20 Allergies Allergy/AdvReac Type Severity Reaction Status Date / Time No Known Allergies Allergy Verified 10/01/20 11:10 Review of Systems Review of Systems: Yes all other systems are reviewed and are negative Constitutional: Constitutional: Reports no additional constitutional complaints, Denies body ache(s), Denies chills, Denies fever(s), Denies headache(s) and Denies weakness Eyes: Eyes: Reports no additional eye complaints and Denies change in vision ENT: Reports system reviewed and no additional complaints, except as documented, Denies dizziness, Denies headache(s), Denies nasal congestion, Denies nasal discharge and Denies neck pain Cardiovascular: Cardiovascular: Reports no additional cardiovascular complaints, Denies chest pain, Denies leg edema and Reports dyspnea Respiratory: Respiratory: Reports no additional respiratory complaints, Reports cough and Reports dyspnea Gastrointestinal: Gastrointestinal: Reports no additional gastrointestinal complaints, Denies abdominal pain, Denies diarrhea, Denies nausea and Denies vomiting Genitourinary: Genitourinary: Denies urinary incontinence Musculoskeletal: Musculoskeletal: Reports no additional musculoskeletal complaints, Reports back pain, Denies arthralgias, Denies joint swelling, Denies neck pain, Denies numbness and Denies tingling Integumentary/Breasts: Skin/Breast: Reports system reviewed and no additional complaints, except as docu and Denies rash Neurologic: Reports system reviewed and no additional complaints, except as documented, Denies Abnormal speech present, Denies dizziness, Denies headache(s), Denies numbness, Denies tingling and Denies weakness PMFSH Past Medical History Attestation statement: The following information was validated with the patient. Source: old records reviewed and nursing notes reviewed Medical History Asthma Chronic anemia COPD (chronic obstructive pulmonary disease) Depression Depression Dizziness Esophagitis Gallstones Gastritis GERD (gastroesophageal reflux disease) HTN (hypertension) Lung nodules Memory impairment Opioid dependence, uncomplicated Smoker ST segment depression Substance abuse Substance abuse Tobacco use disorder Transient alteration of awareness Undifferentiated schizophrenia Surgical History History of prostate biopsy Family History Family History Father No problems noted. Mother No problems noted. 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 ASSISTANT Housing: House Do you presently have visiting nurse or other home services: Yes (PHARMACY INNOVATION ASSISTANT) Alcohol intake: never Patient Tobacco Use Status: Current everyday Tobacco user Cigarettes Per Day: 4 Second Hand Smoke Exposure: Yes Use of substances other than those prescribed or required for medical reasons: No Substance Use Type: Heroin Advance Directives: No Advance Directives Information Provided: Yes service: No Current occupational status: unemployed and disabled Physical Exam Vital Signs: Vital Signs: Last Vital Signs Temp 98.1 F 10/12/20 09:10 Pulse 68 10/12/20 10:05 Resp 20 10/12/20 10:07 BP 128/70 10/12/20 09:10 Pulse Ox 97 10/12/20 09:10 Body Mass Index 3.2 Const: General: cooperative, healthy appearing, comfortable and no acute distress Orientation/consciousness: patient oriented x3 Limitations: no limitations HENMT: Head: Yes normal to inspection Ears: hearing grossly normal bilaterally General nose exam: Normal external nose present Face and sinus: Yes normal facial exam Mouth: Normal oral and palatal mucosa present Throat: Yes posterior oropharynx normal Eyes: General: appearance normal, both eyes and all related structures Pupils: Equal, round and reactive pupils present Neck: Neck: Yes normal visual inspection Chest: Chest palpation & inspection: normal inspection of the chest Resp: Effort & Inspection: normal respiratory effort Auscultation: clear to auscultation bilaterally Cardio: Rate: regular rate Rhythm: regular rhythm Peripheral pulses: Peripheral pulses 2+ throughout GI: Inspection: Yes normal to inspection Palpation (GI): Soft to palpation and nontender Auscultation: normal bowel sounds : General: Yes no CVA tenderness Back/Spine/Pelvis: Other: Right upper thoracic soft tissue tenderness. No midline tenderness, step-offs or deformities. Pain is worsened with deep breathing and palpation Back: no CVA tenderness Thoracic/Lumbar Spine: thoracic and lumbar spine normal to inspection Skin: General skin exam: no rashes or lesions noted Neuro: General: patient oriented x3, no focal motor deficits and normal sensation to monofilament Cranial nerves: Yes Equal, round and reactive pupils present Cognition (Neuro): normal cognition Speech: No Abnormal speech present Gait exam (Neuro): Normal gait present Motor exam (neuro): 5/5 motor strength present throughout Extrem: General: Yes normal to inspection, Yes no pedal edema and Yes no calf tenderness Course Course Course Narrative: 80 yo male With past medical history of BPH, hypertension, GERD, asthma here with complaints of right upper back pain since last evening which is worsened with deep breathing and movement with associated shortness of breath and cough. Unrelieved with home nebulizer and MDI. No fevers or chills. No leg swelling or pain. Patient is hemodynamically stable. Diminished breath sounds bilaterally. Tenderness over the right upper thoracic soft tissue area with no midline tenderness or CVA tenderness. Will check labs, EKG, chest x-ray, COVID screen. Given DuoNeb, provide analgesia 1300-labs are unremarkable. Chest x-ray is consistent with a right-sided pneumonia. EKG shows no acute findings. Oxygen saturation is stable on room air. Patient is feeling improved after some analgesia here. Will discharge home with course of antibiotics, prednisone and supportive care. Reviewed findings with the patient and his PHARMACY INNOVATION ASSISTANT. Reviewed worrisome signs and symptoms of when to return to the emergency department. Comfortable discharge home. Medical Decision Making MDM Narrative Medical decision making narrative: Pulmonary embolism, congestive heart failure,, pneumonia Less likely PE with negative D-dimer, no clinical findings for DVT, no hypoxia, tachypnea or tachycardia Medical Records Medical records reviewed: Yes I reviewed the patient's medical records. Lab Data Lab results reviewed: Yes I reviewed the patient's lab results. Result diagrams: 10/12/20 09:54 10/12/20 09:54 Labs: Lab Results 10/12/20 10/12/20 10/12/20 Range/Units 09:54 09:54 09:54 WBC 9.1 (4.8-10.8) X10*3/uL RBC 4.83 (4.60-5.80) X10*6/uL Hgb 14.7 (14.0-18.0) g/dl Hct 43.2 (42-52) % MCV 89.4 (80-98) fL MCH 30.4 (27.0-33.0) pg MCHC 34.0 (31.0-36.0) g/dl RDW 13.6 (11.0-16.0) % Plt Count 187 (160-400) X10*3/uL MPV 10.0 (9.4-12.4) fL Immature Gran % (Auto) 0.8 H (0.0-0.4) % Neut % (Auto) 68.0 (45-73) % Lymph % (Auto) 19.8 L (20-40) % [place] % (Auto) 5.1 (2-11) % Eos % (Auto) 6.0 H (0-4) % Baso % (Auto) 0.3 (0-2) % Lymph # (Auto) 1.8 (1.2-4.9) X10*3/uL [place] # (Auto) 0.5 (0.1-1.2) X10*3/uL Eos # (Auto) 0.6 H (0.0-0.4) X10*3/uL Baso # (Auto) 0.0 (0.0-0.2) X10*3/uL Abs Immat Gran (auto) 0.07 H (0.00-0.03) X10*3/uL Absolute Neuts (auto) 6.2 (2.0-8.3) X10*3/uL Absolute Nucleated RBC 0.000 (0.0-0.012) X10*3/uL Nucleated RBC % (auto) 0.0 (0.0-0.2) /100WBC PT (9.9-13.0) SEC INR (0.9-1.1) D-Dimer NG/ML Sodium 136 (135-145) mmol/L Potassium 4.1 (3.3-5.1) mmol/L Chloride 103 (96-108) mmol/L Carbon Dioxide 22 (22-29) mmol/L Anion Gap 15 (12-20) BUN 21 H (9-16) mg/dL Creatinine 1.00 (0.5-1.4) mg/dL Estim Creat Clear Calc 6.8 Estimated GFR > 60 Random Glucose 111 (60-115) mg/dL Lactic Acid (0.5-2.0) mmol/L Calcium 9.4 (8.4-10.2) mg/dL Magnesium 1.8 (1.6-2.6) mg/dL Total Bilirubin 0.5 (0.0-1.0) mg/dL Direct Bilirubin 0.2 (0.0-0.5) mg/dL AST 21 (5-37) U/L ALT 15 (0-40) U/L Alkaline Phosphatase 102 D (39-117) U/L Troponin I High Sens 5.1 (<3.5-35.0) ng/L B-Natriuretic Peptide (<100) pg/mL Total Protein 6.7 (6.5-8.0) g/dL Albumin 3.8 (3.5-5.0) g/dL COVID-19 ([facility]) (Negative) COVID-19 Clin Com 10/12/20 10/12/20 10/12/20 Range/Units 09:54 09:54 10:03 WBC (4.8-10.8) X10*3/uL RBC (4.60-5.80) X10*6/uL Hgb (14.0-18.0) g/dl Hct (42-52) % MCV (80-98) fL MCH (27.0-33.0) pg MCHC (31.0-36.0) g/dl RDW (11.0-16.0) % Plt Count (160-400) X10*3/uL MPV (9.4-12.4) fL Immature Gran % (Auto) (0.0-0.4) % Neut % (Auto) (45-73) % Lymph % (Auto) (20-40) % [place] % (Auto) (2-11) % Eos % (Auto) (0-4) % Baso % (Auto) (0-2) % Lymph # (Auto) (1.2-4.9) X10*3/uL [place] # (Auto) (0.1-1.2) X10*3/uL Eos # (Auto) (0.0-0.4) X10*3/uL Baso # (Auto) (0.0-0.2) X10*3/uL Abs Immat Gran (auto) (0.00-0.03) X10*3/uL Absolute Neuts (auto) (2.0-8.3) X10*3/uL Absolute Nucleated RBC (0.0-0.012) X10*3/uL Nucleated RBC % (auto) (0.0-0.2) /100WBC PT 11.4 (9.9-13.0) SEC INR 1.0 (0.9-1.1) D-Dimer 231 NG/ML Sodium (135-145) mmol/L Potassium (3.3-5.1) mmol/L Chloride (96-108) mmol/L Carbon Dioxide (22-29) mmol/L Anion Gap (12-20) BUN (9-16) mg/dL Creatinine (0.5-1.4) mg/dL Estim Creat Clear Calc Estimated GFR Random Glucose (60-115) mg/dL Lactic Acid (0.5-2.0) mmol/L Calcium (8.4-10.2) mg/dL Magnesium (1.6-2.6) mg/dL Total Bilirubin (0.0-1.0) mg/dL Direct Bilirubin (0.0-0.5) mg/dL AST (5-37) U/L ALT (0-40) U/L Alkaline Phosphatase (39-117) U/L Troponin I High Sens (<3.5-35.0) ng/L B-Natriuretic Peptide < 10 (<100) pg/mL Total Protein (6.5-8.0) g/dL Albumin (3.5-5.0) g/dL COVID-19 ([facility]) Negative (Negative) COVID-19 Clin Com See Note 10/12/20 Range/Units 10:03 WBC (4.8-10.8) X10*3/uL RBC (4.60-5.80) X10*6/uL Hgb (14.0-18.0) g/dl Hct (42-52) % MCV (80-98) fL MCH (27.0-33.0) pg MCHC (31.0-36.0) g/dl RDW (11.0-16.0) % Plt Count (160-400) X10*3/uL MPV (9.4-12.4) fL Immature Gran % (Auto) (0.0-0.4) % Neut % (Auto) (45-73) % Lymph % (Auto) (20-40) % [place] % (Auto) (2-11) % Eos % (Auto) (0-4) % Baso % (Auto) (0-2) % Lymph # (Auto) (1.2-4.9) X10*3/uL [place] # (Auto) (0.1-1.2) X10*3/uL Eos # (Auto) (0.0-0.4) X10*3/uL Baso # (Auto) (0.0-0.2) X10*3/uL Abs Immat Gran (auto) (0.00-0.03) X10*3/uL Absolute Neuts (auto) (2.0-8.3) X10*3/uL Absolute Nucleated RBC (0.0-0.012) X10*3/uL Nucleated RBC % (auto) (0.0-0.2) /100WBC PT (9.9-13.0) SEC INR (0.9-1.1) D-Dimer NG/ML Sodium (135-145) mmol/L Potassium (3.3-5.1) mmol/L Chloride (96-108) mmol/L Carbon Dioxide (22-29) mmol/L Anion Gap (12-20) BUN (9-16) mg/dL Creatinine (0.5-1.4) mg/dL Estim Creat Clear Calc Estimated GFR Random Glucose (60-115) mg/dL Lactic Acid 1.1 (0.5-2.0) mmol/L Calcium (8.4-10.2) mg/dL Magnesium (1.6-2.6) mg/dL Total Bilirubin (0.0-1.0) mg/dL Direct Bilirubin (0.0-0.5) mg/dL AST (5-37) U/L ALT (0-40) U/L Alkaline Phosphatase (39-117) U/L Troponin I High Sens (<3.5-35.0) ng/L B-Natriuretic Peptide (<100) pg/mL Total Protein (6.5-8.0) g/dL Albumin (3.5-5.0) g/dL COVID-19 ([facility]) (Negative) COVID-19 Clin Com Imaging Data Chest x-ray: Attestation: I personally reviewed and interpreted this imaging study as follows: Radiologist's impression: FINDINGS: AP view is mildly rotated. There is coarsening of the interstitial markings. Bibasilar atelectatic changes are again seen. There is a groundglass opacities central left upper lobe, new finding from recent imaging 10/01/2020. There is no effusion. The heart is within normal size. The visualized hilar and mediastinal contours and bony structures are stable. XR/XR chest 2V IMPRESSION: 1. New groundglass opacity central right upper lobe when compared with recent imaging 10/01/2020. 2. Coarsening interstitial markings with bibasilar atelectasis. No effusion. ? ECG Data Attestation: I personally reviewed and interpreted this ECG as follows: Interpretation: Normal sinus rhythm with a left bundle branch block. Unchanged from previous. Normal QT Discharge Plan Discharge Clinical Impression: Pneumonia Qualifiers: Laterality: right Patient Disposition: Home, Self-Care Instructions: Community Acquired Pneumonia (ED) Additional Instructions: Start antibiotic and prednisone today Increase fluids, rest Continue home albuterol Prescriptions: New doxycycline monohydrate 100 mg capsule 100 mg PO BID Qty: 14 RF: 0 prednisone 20 mg tablet 40 mg PO DAILY Qty: 10 RF: 0 albuterol sulfate 90 mcg/actuation HFA aerosol inhaler 2 puff inhalation Q6H PRN (Reason: shortness of breath or wheezing) Qty: 6.7 RF: 0 lidocaine [Lidoderm] 5 % adhesive patch,medicated 1 patch topical DAILY Qty: 15 RF: 0 cyclobenzaprine 10 mg tablet 10 mg PO TID PRN (Reason: muscle spasm) Qty: 8 RF: 0 No Action tamsulosin 0.4 mg capsule 0.4 mg PO DAILY Qty: 90 RF: 2 oxybutynin chloride 5 mg tablet extended release 24hr 5 mg PO DAILY 90 Days Qty: 90 RF: 2 polyethylene glycol 3350 [Miralax] 17 gram/dose powder 238 g PO ONCE 1 Days Qty: 238 RF: 0 bisacodyl [Dulcolax (bisacodyl)] 5 mg tablet,delayed release (DR/EC) 10 mg PO ONCE 1 Days Qty: 2 RF: 0 cefuroxime axetil 500 mg tablet 500 mg PO BID 10 Days Qty: 28 RF: 0 prednisone 20 mg tablet 40 mg PO DAILY 5 Days Qty: 10 RF: 0 umeclidinium 62.5 mcg/actuation blister with device 1 inh inhalation DAILY RF: 0 buprenorphine-naloxone 8-2 mg film 2 film sublingual DAILY RF: 0 quetiapine 50 mg tablet 50 mg PO BID@0900,1700 RF: 0 haloperidol lactate 2 mg/mL concentrate 1 mg PO BEDTIME RF: 0 trazodone 100 mg tablet 100 mg PO BEDTIME RF: 0 tamsulosin 0.4 mg capsule 0.4 mg PO DAILY RF: 0 quetiapine 100 mg tablet 150 mg PO BEDTIME RF: 0 omeprazole 40 mg capsule,delayed release(DR/EC) 40 mg PO DAILY RF: 0 cyanocobalamin (vitamin B-12) 1,000 mcg tablet 1,000 mcg PO DAILY RF: 0 sertraline 100 mg tablet 100 mg PO DAILY RF: 0 benztropine 0.5 mg tablet 0.5 mg PO BEDTIME RF: 0 multivitamin Tablet 1 tab PO DAILY RF: 0 albuterol sulfate 90 mcg/actuation HFA aerosol inhaler 2 puff PO Q4-6H PRN (Reason: Shortness Of Breath) RF: 0 albuterol sulfate 2.5 mg /3 mL (0.083 %) solution for nebulization 2.5 mg inhalation QID PRN (Reason: Shortness Of Breath) RF: 0 docusate sodium 100 mg capsule 100 mg PO BID RF: 0 fluticasone propion-salmeterol 250-50 mcg/dose blister with device 1 ea inhalation Q12H RF: 0 atorvastatin 20 mg tablet 20 mg PO DAILY RF: 0 naloxone 4 mg/actuation spray,non-aerosol 1 spray intranasal ONCE PRN (Reason: Opioid Reversal) RF: 0 bisacodyl [Dulcolax (bisacodyl)] 5 mg tablet,delayed release (DR/EC) 10 mg PO BEDTIME 2 Days Qty: 4 RF: 0 Referrals: Hallie Mcclendon MD [Primary Care Provider] - 2 days Print Language: Ukrainian
[2020-10-12 10:07] VITALS: RESP 20
[2020-10-12] MEDS: Morphine Sulfate 2 MG/ML CARTRIDGE IVPUSH (10:07)
[2020-10-12] MEDS: Lidocaine 4 % Patch ADH..PATCH 1 PATCH TRANSDERMA (10:07)
[2020-10-12 10:10] LABS: Basophils Percent Auto 0.3 % (0-2); Eosinophils Absolute Auto 0.6 X10*3/uL (0.0-0.4); Hematocrit 43.2 % (42-52); Hemoglobin 14.7 g/dl (14.0-18.0); Imm Gran Abs Auto 0.07 X10*3/uL (0.00-0.03); Imm Gran Pct Auto 0.8 % (0.0-0.4); Lymphocytes Absolute Auto 1.8 X10*3/uL (1.2-4.9); Lymphocytes Percent Auto 19.8 % (20-40); Mean Corpuscular Hemoglobin 30.4 pg (27.0-33.0); Mean Corpuscular Volume 89.4 fL (80-98); Monocytes Absolute Auto 0.5 X10*3/uL (0.1-1.2); Monocytes Percent Auto 5.1 % (2-11); Neutrophils Absolute Auto 6.2 X10*3/uL (2.0-8.3); Platelet Count 187 X10*3/uL (160-400); Red Blood Count 4.83 X10*6/uL (4.60-5.80); Red Cell Distribution Width 13.6 % (11.0-16.0); White Blood Count 9.1 X10*3/uL (4.8-10.8)
[2020-10-12 10:16] LABS: Prothrombin Time 11.4 SEC (9.9-13.0)
[2020-10-12 10:19] LABS: D Dimer 231 NG/ML
[2020-10-12 10:42] LABS: COVID-19 Test Negative (Negative)
[2020-10-12 10:53] LABS: Lactic Acid 1.1 mmol/L (0.5-2.0)
[2020-10-12 10:59] LABS: Alanine Aminotransferase 15 U/L (0-40); Albumin Level 3.8 g/dL (3.5-5.0); Alkaline Phosphatase 102 U/L (39-117); Anion Gap 15 (12-20); Aspartate Amino Transferase 21 U/L (5-37); Bilirubin Direct 0.2 mg/dL (0.0-0.5); Bilirubin Total 0.5 mg/dL (0.0-1.0); Blood Urea Nitrogen 21 mg/dL (9-16); Calcium 9.4 mg/dL (8.4-10.2); Carbon Dioxide 22 mmol/L (22-29); Chloride 103 mmol/L (96-108); Creatinine Clr Calc Pharmacy 6.8; Estimated Glomerular Filt Rate > 60; Glucose Random 111 mg/dL (60-115); Magnesium 1.8 mg/dL (1.6-2.6); Potassium 4.1 mmol/L (3.3-5.1); Sodium 136 mmol/L (135-145); Total Protein 6.7 g/dL (6.5-8.0)
[2020-10-12 11:02] LABS: Troponin-I High Sensitivity 5.1 ng/L (<3.5-35.0)
[2020-10-12 11:58] LABS: B Type Natriuretic Peptide < 10 pg/mL (<100)
== END 2020-10-12 13:48 | disposition home or self-care (01) ==
PROVIDERS: Nurse Practitioner Family; Emergency Provider Emergency Medicine; PCP Family Medicine
DX: J18.9 Pneumonia, unspecified organism (principal); R06.02 Shortness of breath; M54.6 Pain in thoracic spine; I10 Essential (primary) hypertension; J44.9 Chronic obstructive pulmonary disease, unspecified; F17.210 Nicotine dependence, cigarettes, uncomplicated; Z20.822 Contact with and (suspected) exposure to COVID-19; Z79.899 Other long term (current) drug therapy
CPT/HCPCS: 36415; 71046; 80048; 80076; 83605; 83735; 83880; 84484; 85025; 85379; 85610; 87040; 87635; 93005; 94640; 96374; 99284; J2270

== ENCOUNTER → 2020-10-30 07:22 | Outpatient (BNVA) | payer MEDICARE, SELFPAY | PROVIDERS: PCP Family Medicine; Visit Provider Surgery Vascular Surgery | DX: I83.11 Varicose veins of right lower extremity with inflammation (principal) | CPT/HCPCS: 36482 ==

== ENCOUNTER 2020-11-02 12:30 | Outpatient (REF) | payer MEDICARE, SELFPAY ==
--- NOTE | ~2020-11-02 | US_ITS ---
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 COMPARISON: Comparison is made to a previous study dated 09/08/2020. TECHNIQUE: Ultrasound of the deep veins is performed from the hip to the calf with compression sonography and color and pulse Doppler assessment. Spectral analysis with color-flow imaging is performed. FINDINGS: There is normal venous compression and respiratory variation and augmented flow. The visualized common femoral vein, superficial femoral vein, profunda femoral vein, popliteal vein, and the trifurcation region shows no evidence of deep venous thrombosis. The peroneal veins are not seen. There is no significant popliteal fossa cyst. The occlusion of the right great saphenous vein begins 4.0 cm from the saphenofemoral junction. There is no extension of thrombus into the deep venous system. The right great saphenous vein appears occluded. US/US venous duplex LE RT IMPRESSION: 1. No DVT demonstrated in the right lower extremity. 2. The right great saphenous vein appears occluded.
== END 2020-11-02 12:31 | disposition home or self-care (01) ==
LOC: HO.US 12:30
PROVIDERS: PCP Family Medicine; Visit Provider Surgery Vascular Surgery
DX: M79.604 Pain in right leg (principal)
CPT/HCPCS: 93971

== ENCOUNTER 2020-11-12 09:25 | Day surgery (SDC) | payer MEDICARE, SELFPAY ==
--- NOTE | 2020-09-17 08:44 | P.CONAN_ITS ---
HPI - Anesthesia Eval Consult details Narrative: 80yo M for Colonoscopy s/p ERCP 01/2020 with GA-ETT suboxone for h/o IVDA Seen by cardiology 09/2019 for increased SOB. Nuc stress done 02/2020 (report below). No cardiac f/u since [facility] Active Problems Active Problems: All Active Problems (Updated 09/15/20 @ 13:05 by Radha Beaver) Benign prostatic hyperplasia (BPH) with urinary urgency (Acute) Colon cancer screening (Acute) History of sphincterotomy of sphincter of Oddi (Acute) Schizophrenia (Acute) PVD (peripheral vascular disease) (Acute) Varicose veins of right lower extremity with inflammation (Acute) GERD (gastroesophageal reflux disease) (Acute) Chronic anemia (Acute) Depression (Acute) Substance abuse (Acute) Gallstones (Acute) Smoker (Acute) Past Medical History Medical History (Updated 09/15/20 @ 13:05 by Radha Beaver) Asthma Chronic anemia COPD (chronic obstructive pulmonary disease) Depression Depression Dizziness Esophagitis Gallstones Gastritis GERD (gastroesophageal reflux disease) HTN (hypertension) Lung nodules Memory impairment Opioid dependence, uncomplicated Smoker ST segment depression Substance abuse Substance abuse Tobacco use disorder Transient alteration of awareness Undifferentiated schizophrenia Family History Family History Father No problems noted. Mother No problems noted. 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) Alcohol intake: never Patient Tobacco Use Status: Current everyday Tobacco user Cigarettes Per Day: 4 Second Hand Smoke Exposure: Yes Substance Use Type: Heroin service: No Current occupational status: unemployed and disabled Meds Allergies Allergy/AdvReac Type Severity Reaction Status Date / Time No Known Allergies Allergy Verified 09/15/20 09:25 Home Medications Medication Instructions Recorded Confirmed Last Taken Type albuterol sulfate 2.5 mg INHALATION QID PRN 12/14/19 05/12/20 Unknown History albuterol sulfate 90 mcg/actuation 2 puff PO Q4-6H PRN 12/14/19 05/12/20 Unknown History aerosol inhaler atorvastatin 20 mg tablet 20 mg PO DAILY 12/14/19 05/12/20 Unknown History benztropine 0.5 mg tablet 0.5 mg PO BEDTIME 12/14/19 05/12/20 Unknown History buprenorphine 8 mg-naloxone 2 mg 2 film SUBLINGUAL DAILY 12/14/19 05/12/20 Unknown History sublingual film cyanocobalamin (vitamin B-12) 1,000 mcg PO DAILY 12/14/19 05/12/20 Unknown History 1,000 mcg tablet docusate sodium 100 mg capsule 100 mg PO BID 12/14/19 05/12/20 Unknown History fluticasone 250 mcg-salmeterol 50 1 ea INHALATION Q12H 12/14/19 05/12/20 Unknown History mcg/dose blistr powdr for inhalation haloperidol lactate 2 mg/mL oral 1 mg PO BEDTIME 12/14/19 05/12/20 Unknown History concentrate multivitamin 1 tab PO DAILY 12/14/19 05/12/20 Unknown History naloxone 4 mg/actuation nasal spray 1 spray INTRANASAL ONCE PRN 12/14/19 05/12/20 Unknown History omeprazole 40 mg capsule,delayed 40 mg PO DAILY 12/14/19 05/12/20 Unknown History release quetiapine 100 mg tablet 150 mg PO BEDTIME 12/14/19 05/12/20 Unknown History quetiapine 50 mg tablet 50 mg PO BID@0900,1700 12/14/19 05/12/20 Unknown History sertraline 100 mg tablet 100 mg PO DAILY 12/14/19 05/12/20 Unknown History tamsulosin 0.4 mg capsule 0.4 mg PO DAILY 12/14/19 05/12/20 Unknown History trazodone 100 mg tablet 100 mg PO BEDTIME 12/14/19 05/12/20 Unknown History umeclidinium 62.5 mcg/actuation 1 inh INHALATION DAILY 12/14/19 05/12/20 Unknown History blister powder for inhalation Exam Exam Date and Time: September 17, 2020 0844 Narrative Narrative: EKG 01/2020 Vent. Rate : 109 BPM Atrial Rate : 109 BPM P-R Int : 132 ms QRS Dur : 132 ms QT Int : 362 ms P-R-T Axes : 050 -31 096 degrees QTc Int : 487 ms Sinus tachycardia Left axis deviation Left ventricular hypertrophy with QRS widening and repolarization abnormality Abnormal ECG When compared with ECG of 15-NOV-2018 15:11, No significant change was found NM anthony perf SPECT rest & str 02/2020 Impression: 1. Myocardial perfusion imaging study shows no clear evidence of any ischemia. Fixed defect along the inferior wall that mostly reverses with CT attenuation correction except in the apical inferior wall. This is indicative of diaphragmatic attenuation artifact and possible nontransmural infarct towards the apex. 2. Gated LVEF is diminished; automated calculation 32% during stress and 40% during rest but visually appears much higher. Correlate with echocardiogram. 3. Transient ischemic dilatation not present. EKG component of the test reported separately.
[2020-11-06 14:19] VITALS: BMI 30.2
[2020-11-12] VITALS (8 sets, daily range): BP systolic 130–145; BP diastolic 72–85; PULSE 79–89; RESP 18–20; TEMP 36.1–36.6; O2SAT 91–97
[2020-11-12] MEDS: Lactated Ringers 1,000 ML 50 ML IVCONT (09:47)
--- NOTE | 2020-11-12 09:47 | P.CONAN_ITS ---
[facility] Active Problems Active Problems: All Active Problems (Updated 10/13/20 @ 00:02 by Darrell Altamirano) Benign prostatic hyperplasia (BPH) with urinary urgency (Acute) Colon cancer screening (Acute) History of sphincterotomy of sphincter of Oddi (Acute) Schizophrenia (Acute) PVD (peripheral vascular disease) (Acute) Varicose veins of right lower extremity with inflammation (Acute) GERD (gastroesophageal reflux disease) (Acute) Chronic anemia (Acute) Depression (Acute) Substance abuse (Acute) Gallstones (Acute) Smoker (Acute) Past Medical History Medical History Asthma Chronic anemia COPD (chronic obstructive pulmonary disease) Depression Depression Dizziness Esophagitis Gallstones Gastritis GERD (gastroesophageal reflux disease) HTN (hypertension) Lung nodules Memory impairment Opioid dependence, uncomplicated Smoker ST segment depression Substance abuse Substance abuse Tobacco use disorder Transient alteration of awareness Undifferentiated schizophrenia Family History Family History Father No problems noted. Mother No problems noted. 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 Housing: House Do you presently have visiting nurse or other home services: Yes (MANUFACTURING PLANT MANAGER) Alcohol intake: never Patient Tobacco Use Status: Former Tobacco user Tobacco use type: Cigarette Cigarettes Per Day: 4 Second Hand Smoke Exposure: No Use of substances other than those prescribed or required for medical reasons: No Substance Use Type: Heroin Are you DNR?: No Advance Directives: No Advance Directives Information Provided: Yes Advance Directives on File: No service: No Current occupational status: unemployed and disabled Meds Allergies Allergy/AdvReac Type Severity Reaction Status Date / Time No Known Allergies Allergy Verified 10/30/20 07:27 Active Medications: Current Medications Generic Name Dose Route Start Last Admin Trade Name Freq PRN Reason Stop Dose Admin Lactated Ringer's 1,000 mls @ 50 mls/hr 11/12/20 09:45 Lr IVCONT .Q20H [facility] Home Medications Medication Instructions Recorded Confirmed Last Taken Type albuterol sulfate 2.5 mg INHALATION QID PRN 12/14/19 05/12/20 Unknown History albuterol sulfate 90 mcg/actuation 2 puff PO Q4-6H PRN 12/14/19 05/12/20 Unknown History aerosol inhaler atorvastatin 20 mg tablet 20 mg PO DAILY 12/14/19 05/12/20 Unknown History benztropine 0.5 mg tablet 0.5 mg PO BEDTIME 12/14/19 05/12/20 Unknown History buprenorphine 8 mg-naloxone 2 mg 2 film SUBLINGUAL DAILY 12/14/19 05/12/20 Unknown History sublingual film cyanocobalamin (vitamin B-12) 1,000 mcg PO DAILY 12/14/19 05/12/20 Unknown History 1,000 mcg tablet docusate sodium 100 mg capsule 100 mg PO BID 12/14/19 05/12/20 Unknown History fluticasone 250 mcg-salmeterol 50 1 ea INHALATION Q12H 12/14/19 05/12/20 Unknown History mcg/dose blistr powdr for inhalation haloperidol lactate 2 mg/mL oral 1 mg PO BEDTIME 12/14/19 05/12/20 Unknown History concentrate multivitamin 1 tab PO DAILY 12/14/19 05/12/20 Unknown History naloxone 4 mg/actuation nasal spray 1 spray INTRANASAL ONCE PRN 12/14/19 05/12/20 Unknown History omeprazole 40 mg capsule,delayed 40 mg PO DAILY 12/14/19 05/12/20 Unknown History release quetiapine 100 mg tablet 150 mg PO BEDTIME 12/14/19 05/12/20 Unknown History quetiapine 50 mg tablet 50 mg PO BID@0900,1700 12/14/19 05/12/20 Unknown History sertraline 100 mg tablet 100 mg PO DAILY 12/14/19 05/12/20 Unknown History tamsulosin 0.4 mg capsule 0.4 mg PO DAILY 12/14/19 05/12/20 Unknown History trazodone 100 mg tablet 100 mg PO BEDTIME 12/14/19 05/12/20 Unknown History umeclidinium 62.5 mcg/actuation 1 inh INHALATION DAILY 12/14/19 05/12/20 Unknown History blister powder for inhalation Exam Exam Date and Time: November 12, 2020 0947 Height,Weight and Vital Signs: Height 5 ft 3 in Weight 77.564 kg Last Vital Signs Temp 97.9 F 11/12/20 09:27 Pulse 87 11/12/20 09:27 Resp 18 11/12/20 09:27 BP 142/85 H 11/12/20 09:27 Pulse Ox 96 11/12/20 09:27 Airway Mallampati Class: II TM Dist: >3cm Neck ROM: Limited Denture: Upper Loose/Missing/Broken Teeth: Yes Heart: RRR Lungs: RRR Assessment and Plan Assessment Anesthesia Assessment: Anesthesia Plan Discussed and Chart Reviewed Final Anesthetic Review History of Problems with Anesthesia: No NPO: Yes ASA Class: III Final Preanesthetic Review: Meds/Allgs Chart Reviewed, Consent Obtained/Reviewed and Anes Risks/Benef Reviewed Patient Risk: Intermediate Procedure Risk: Low Anesthetic Plan Anesthetic Plan: MAC: Disposition: Standard PACU
--- NOTE | 2020-11-12 09:49 | PC.NURSE ---
pt took all morning medications but does not know which ones specifically. Dr. Tony and Dr. Amin aware.
--- NOTE | 2020-11-12 10:36 | MHC.SHP ---
Pre-Procedural Eval Section A Date of Service: 11/12/20 Section B Chief Complaint: Screening Relevant Family History (Specify if Yes): No Relevant Social History: None Present Medications: see Short Stay Collaborative assessment Medical History: Significant History (Asthma Chronic anemia COPD (chronic obstructive pulmonary disease) Depression Depression Dizziness Esophagitis Gallstones Gastritis GERD (gastroesophageal reflux disease) HTN (hypertension) Lung nodules Memory impairment Opioid dependence, uncomplicated Smoker ST segment depression Substance abuse S) History of Previous Operations: Relevant previous surgery/procedure and date(s) (ercp) Allergies: Allergies Allergy/AdvReac Type Severity Reaction Status Date / Time No Known Allergies Allergy Verified 10/30/20 07:27 Review of Systems Sugical H&P ROS: Negative: Constitution, Cardiovascular, Respiratory, Neurological, Psychiatric, Hem-Onc, Allergic/Immunologic, Gastrointestinal, Genitourinary, Musculoskeletal, Integumentary, Endocrine and Eyes/Ears/Nose/Throat Exam Surgical H&P Exam: Normal: HEENT, Normal: Heart, Normal: Lungs, Normal: Extremities, Normal: Abdomen, Normal: Skin and Normal: Neurological Plan Diagnosis/Plan: Unchanged I have reviewed the history and physical and performed a pertinent physical examination on my patient. No changes have occurred unless specified.
--- NOTE | 2020-11-12 10:38 | PM.OP ---
Brief Operative Note Date of Service: 11/12/20 Pre-op diagnosis: colon screening Post-op diagnosis: same Procedure: see op note Surgeon: Callie Amin MD Anesthesia: MAC Was an Director Of Market Intelligence used for this Procedure?: No Estimated blood loss (mL): 0 Condition: stable Disposition: PACU
--- NOTE | 2020-11-12 10:38 | W.PM.OPN ---
Operative Note Operative Note Date of Service: 11/12/20 Narrative: Operative Information Procedure Description: Colonoscopy COLONOSCOPY Instrument: Olympus variable stiffness pediatric scope 190L Colonoscopy Monitoring: Vital signs and clinical assessment, continuous EKG monitoring, Pulse oximetry, Carbon Dioxide monitoring and blood pressure monitoring were done throughout the procedure. Colon withdrawal time was 6 minutes. Procedure: The patient was placed in the left lateral decubitis position and pre-procedure medications were administered. After a digital rectal examination of the ano-rectum, the video colonoscope was inserted into the rectum and advanced through the colon to the cecum/TI. The colonoscope was slowly withdrawn in a retrograde panoramic fashion and the colon mucosa was carefully examined including a retroflexed view of the rectum. Findings and interventions are described below. Procedure Difficulty: difficult Findings: Scope only passed to the transverse colon. The prep was v poor with limited visability, also with looping of scope and abdominal pressure he started to vomit so the procedure was aborted. One sessile polyp in sigmoid 10 mm in diameter removed with cold snare. Severe diverticulosis with large mouthed tics noted thru out colon. Impression and Post Procedure Diagnosis: poor prep diverticulosis polyp Plan: repeat colonoscopy in 1-2 months and review prep instructions and compliance prior to next test monitor O2 sats prior to d/c Above findings were reviewed with the patient and relevant handouts were provided if indicated.
== END 2020-11-12 13:15 | disposition home or self-care (01) ==
PROVIDERS: PCP Family Medicine; Visit Provider Internal Medicine Gastroenterology
PROC: 0DJD8ZZ Inspection of Lower Intestinal Tract, Via Natural or Artificial Opening Endoscopic (ICD-10-PCS; CPT 45378; principal; 2020-11-12 10:10)
DX: Z12.11 Encounter for screening for malignant neoplasm of colon (principal); K63.5 Polyp of colon; K57.30 Diverticulosis of large intestine without perforation or abscess without bleeding; K56.2 Volvulus; R11.11 Vomiting without nausea; I10 Essential (primary) hypertension; I42.9 Cardiomyopathy, unspecified; J44.9 Chronic obstructive pulmonary disease, unspecified; Z79.899 Other long term (current) drug therapy; Z53.8 Procedure and treatment not carried out for other reasons
CPT/HCPCS: 45385; 88305; J2370

== ENCOUNTER 2020-11-17 09:28 | Outpatient (REF) | payer MEDICARE, SELFPAY ==
--- NOTE | ~2020-11-17 | XR_ITS ---
EXAMINATION: XR SHOULDER, RIGHT CLINICAL INFORMATION: Right shoulder pain. COMPARISON: None TECHNIQUE: AP external rotation, Grashey, scapular Y, and axillary views of the right shoulder. FINDINGS: No acute fracture or dislocation. Small acromioclavicular marginal osteophytes. No glenohumeral joint space narrowing or marginal osteophytes. No osseous erosion. No abnormal soft tissue calcification. XR/XR shoulder RT min 2V IMPRESSION: Mild acromioclavicular osteoarthritis.
--- NOTE | ~2020-11-17 | XR_ITS ---
EXAMINATION: XR CHEST CLINICAL INFORMATION: Pneumonia. COMPARISON: Multiple priors, most recent chest radiograph dated 10/12/2020. TECHNIQUE: 2 views of the chest were obtained. FINDINGS: Diffuse interstitial prominence appears similar when compared to the prior examination. Resolution of the previously seen left upper lobe airspace opacity. Minimal left basilar atelectasis versus early infiltrate, new when compared to the prior examination. Stable cardiomediastinal silhouette. No pleural effusion or pneumothorax. No acute osseous abnormality. XR/XR chest 2V IMPRESSION: Resolution of the previously seen left upper lobe airspace consolidation. Minimal left basilar atelectasis versus early infiltrates, new when compared to the prior examination. Additional chronic findings are unchanged.
== END 2020-11-17 09:29 | disposition home or self-care (01) ==
LOC: HO.XRAY 09:28
PROVIDERS: Absent Provider Family Medicine; PCP Family Medicine; Visit Provider Internal Medicine Pulmonary Disease
DX: J18.9 Pneumonia, unspecified organism (principal); M25.511 Pain in right shoulder; R06.00 Dyspnea, unspecified; R91.8 Other nonspecific abnormal finding of lung field; J44.9 Chronic obstructive pulmonary disease, unspecified; Z87.891 Personal history of nicotine dependence; Z79.899 Other long term (current) drug therapy
CPT/HCPCS: 71046; 73030; 99212

== ENCOUNTER → 2020-11-20 08:55 | Outpatient (BNVA) | payer MEDICARE, SELFPAY | PROVIDERS: PCP Family Medicine; Visit Provider Urology | CPT/HCPCS: Q3014 ==

== ENCOUNTER → 2020-11-27 08:39 | Outpatient (BNVA) | payer MEDICARE, SELFPAY | PROVIDERS: PCP Family Medicine; Visit Provider Nurse Practitioner | DX: Z12.11 Encounter for screening for malignant neoplasm of colon (principal); K21.9 Gastro-esophageal reflux disease without esophagitis; K80.20 Calculus of gallbladder without cholecystitis without obstruction; F19.10 Other psychoactive substance abuse, uncomplicated; F20.9 Schizophrenia, unspecified | CPT/HCPCS: 99212 ==

== ENCOUNTER → 2020-12-08 09:56 | Outpatient (BNVA) | payer MEDICARE, SELFPAY | PROVIDERS: PCP Family Medicine; Visit Provider Surgery Vascular Surgery | DX: I83.12 Varicose veins of left lower extremity with inflammation (principal) | CPT/HCPCS: 99212 ==

== ENCOUNTER → 2020-12-17 09:09 | Outpatient (BNVA) | payer MEDICARE, SELFPAY | PROVIDERS: PCP Family Medicine; Visit Provider Internal Medicine Pulmonary Disease | DX: R91.8 Other nonspecific abnormal finding of lung field (principal); J44.9 Chronic obstructive pulmonary disease, unspecified | CPT/HCPCS: 99212 ==

== ENCOUNTER → 2021-01-01 07:41 | Outpatient (BNVA) | payer MEDICARE, SELFPAY | PROVIDERS: PCP Family Medicine; Visit Provider Surgery Vascular Surgery | DX: I83.12 Varicose veins of left lower extremity with inflammation (principal) | CPT/HCPCS: 36482 ==

== ENCOUNTER 2021-01-04 10:38 | Outpatient (REF) | payer MEDICARE, SELFPAY ==
--- NOTE | ~2021-01-04 | US_ITS ---
EXAMINATION: US VENOUS ULTRASOUND WITH DOPPLER LOWER EXTREMITY, LEFT CLINICAL INFORMATION: Post left leg veno seal procedure. Rule out DVT. COMPARISON: Previous exam most recent October 2020 TECHNIQUE: Ultrasound of the deep veins is performed from the hip to the calf with compression sonography and color and pulse Doppler assessment. Spectral analysis with color-flow imaging is performed. FINDINGS: There is normal venous compression and respiratory variation and augmented flow. The visualized common femoral vein, superficial femoral vein, profunda femoral vein, popliteal vein, and the trifurcation region shows no evidence of deep venous thrombosis. There is echogenic material seen in the left greater saphenous vein extending 2.4 cm from the saphenofemoral junction post veno seal procedure. There is no Nazario's cyst.. US/US venous duplex LE LT IMPRESSION: No DVT demonstrated in the left lower extremity.
== END 2021-01-04 10:39 | disposition home or self-care (01) ==
LOC: HO.US 10:38
PROVIDERS: PCP Family Medicine; Visit Provider Surgery Vascular Surgery
DX: M79.605 Pain in left leg (principal)
CPT/HCPCS: 93971

== ENCOUNTER → 2021-01-14 09:45 | Outpatient (BNVA) | payer MEDICARE, SELFPAY | PROVIDERS: PCP Family Medicine; Visit Provider Surgery Vascular Surgery | DX: I83.12 Varicose veins of left lower extremity with inflammation (principal) | CPT/HCPCS: 99212 ==

== ENCOUNTER → 2021-01-26 09:45 | Outpatient (BNVA) | payer MEDICARE, SELFPAY | PROVIDERS: PCP Family Medicine; Referring Provider Family Medicine; Visit Provider Nurse Practitioner | DX: K21.9 Gastro-esophageal reflux disease without esophagitis (principal); K80.20 Calculus of gallbladder without cholecystitis without obstruction; J44.9 Chronic obstructive pulmonary disease, unspecified; F19.10 Other psychoactive substance abuse, uncomplicated; F20.9 Schizophrenia, unspecified; Z80.0 Family history of malignant neoplasm of digestive organs; Z98.890 Other specified postprocedural states | CPT/HCPCS: 99212 ==

== ENCOUNTER 2021-03-01 08:49 | Outpatient (REF) | payer MEDICARE, SELFPAY ==
--- NOTE | ~2021-03-01 | CT_ITS ---
EXAMINATION: CT chest wo con. CLINICAL INFORMATION: Multiple prior CTs most recent February 2020 COMPARISON: Most recent prior study from 03/09/2020 TECHNIQUE: Multidetector volumetric CT imaging of the chest was done. Axial MIP volume rendering provided. Sagittal and coronal reformatted images were obtained. This CT examination was performed using dose optimization techniques as appropriate, variously including the following: *Automated exposure control *Adjustment of mA and/or kV according to patient size (this includes techniques or standardized protocols for targeted exams where dose is matched to indication/reason for exam; i.e. extremities or head) *Use of iterative reconstruction technique CONTRAST: Noncontrasted study. 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 LUNGS: Lung parenchyma: Redemonstration of the mild primarily peripheral pulmonary emphysema. There are scattered mild patchy interstitial groundglass opacities suggesting probably mild interstitial pneumonitis nonspecific slightly more prominent on today's exam. Left parahilar interstitial reticulonodular and groundglass opacification probably mild infiltrates newly developed since prior exam. Lung nodules/masses: There is no suspicious lung mass, bilateral apical densities a probably apical scarring unchanged. Scattered calcified and noncalcified lung nodules largest 5 mm right upper lobe. AIRWAYS: Trachea and bronchi are normal. PLEURA: No pleural effusion or pneumothorax. MEDIASTINUM AND SADI: No mediastinal, hilar or axillary lymphadenopathy. No mediastinal mass. VESSELS: HEART AND PERICARDIUM: Aberrant right subclavian artery. Heart is normal in size. No pericardial effusion. There are heavy coronary calcifications. Pulmonary arteries are normal in size. LOWER NECK, AXILLA: The visualized thyroid gland is unremarkable. No axillary mass or adenopathy. VISUALIZED ABDOMEN: There are gallstones. Atrophic pancreas. Slightly Hernia. CHEST WALL AND BONES: No chest wall mass. The visualized bony thorax is within normal limits. CT/CT chest wo con IMPRESSION: *Newly developed mild multiple patchy interstitial groundglass opacities concerning for interstitial viral pneumonia. *No suspicious lung mass, redemonstration of bilateral calcified and noncalcified small lung nodules 5 mm or less. *Other noncritical findings unchanged including apparent right subclavian artery, coronary calcification, pulmonary emphysema, sliding hiatal hernia, atrophic pancreas, coronary calcifications.
== END 2021-03-01 08:50 | disposition home or self-care (01) ==
LOC: HO.CT 08:49
PROVIDERS: PCP Family Medicine; Visit Provider Internal Medicine Pulmonary Disease
DX: R91.8 Other nonspecific abnormal finding of lung field (principal)
CPT/HCPCS: 71250

== ENCOUNTER → 2021-04-08 08:37 | Day surgery (SDC) | payer MEDICARE, SELFPAY ==
[2021-04-05 11:17] VITALS: BMI 32.4
--- NOTE | 2021-04-06 10:13 | P.CONAN_ITS ---
Documented by User: Cristin George NP 04/07/21 12:34 HPI - Anesthesia Eval Consult details Narrative: 81yo M for Colonoscopy Cardiac cleared 10/2020 for colo 11/2020 at moderate risk. s/p colo 11/2020 with TIVA, repeat d/t poor prep Suboxone for h/o IVDA PMFSH Active Problems Active Problems: All Active Problems (Updated 04/05/21 @ 11:21 by Radha Beaver, RN) Benign prostatic hyperplasia (BPH) with urinary urgency (Acute) Colon cancer screening (Acute) History of sphincterotomy of sphincter of Oddi (Acute) Schizophrenia (Acute) PVD (peripheral vascular disease) (Acute) Varicose veins of right lower extremity with inflammation (Acute) Dyspnea on exertion (Acute) Elevated PSA (Acute) Varicose veins of left lower extremity with inflammation (Acute) Family history of colon cancer (Acute) Lung nodules (Acute) COPD (chronic obstructive pulmonary disease) (Acute) GERD (gastroesophageal reflux disease) (Acute) Chronic anemia (Acute) Depression (Acute) Substance abuse (Acute) Gallstones (Acute) Smoker (Acute) Past Medical History Medical History Asthma Chronic anemia COPD (chronic obstructive pulmonary disease) Depression Depression Dizziness Esophagitis Gallstones Gastritis GERD (gastroesophageal reflux disease) Hiatal hernia HTN (hypertension) Lung nodules Memory impairment Opioid dependence, uncomplicated Smoker ST segment depression Substance abuse Substance abuse Tobacco use disorder Transient alteration of awareness Undifferentiated schizophrenia Family History Family History Father No problems noted. Mother No problems noted. 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 Housing: House Are you a primary floor care specialist to a significant other at home: No Do you presently have visiting nurse or other home services: Yes (BUILDING CONSTRUCTION PROFESSOR) Alcohol intake: never Patient Tobacco Use Status: Former Tobacco user Tobacco use type: Cigarette Cigarettes Per Day: 4 Second Hand Smoke Exposure: No Substance Use Type: Heroin Are you DNR?: No Advance Directives: No Advance Directives Information Provided: Yes Advance Directives on File: No service: No Current occupational status: unemployed and disabled Meds Allergies Allergy/AdvReac Type Severity Reaction Status Date / Time No Known Allergies Allergy Verified 04/05/21 11:21 Home Medications Medication Instructions Recorded Confirmed Last Taken Type albuterol sulfate 2.5 mg 12/14/19 05/12/20 Unknown History INHALATION QID PRN albuterol sulfate 2 puff PO Q4-6H 12/14/19 05/12/20 Unknown History 90 mcg/actuation PRN aerosol inhaler atorvastatin 20 20 mg PO DAILY 12/14/19 05/12/20 Unknown History mg tablet benztropine 0.5 0.5 mg PO 12/14/19 05/12/20 Unknown History mg tablet BEDTIME buprenorphine 8 2 film 12/14/19 05/12/20 Unknown History mg-naloxone 2 mg SUBLINGUAL DAILY sublingual film cyanocobalamin 1,000 mcg PO 12/14/19 05/12/20 Unknown History (vitamin B-12) DAILY 1,000 mcg tablet docusate sodium 100 mg PO BID 12/14/19 05/12/20 Unknown History 100 mg capsule haloperidol 1 mg PO BEDTIME 12/14/19 05/12/20 Unknown History lactate 2 mg/mL oral concentrate multivitamin 1 tab PO DAILY 12/14/19 05/12/20 Unknown History naloxone 4 1 spray 12/14/19 05/12/20 Unknown History mg/actuation INTRANASAL ONCE nasal spray PRN omeprazole 40 mg 40 mg PO DAILY 12/14/19 05/12/20 Unknown History capsule,delayed release quetiapine 100 mg 150 mg PO 12/14/19 05/12/20 Unknown History tablet BEDTIME quetiapine 50 mg 50 mg PO 12/14/19 05/12/20 Unknown History tablet BID@0900,1700 sertraline 100 mg 100 mg PO DAILY 12/14/19 05/12/20 Unknown History tablet tamsulosin 0.4 mg 0.4 mg PO DAILY 12/14/19 05/12/20 Unknown History capsule trazodone 100 mg 100 mg PO 12/14/19 05/12/20 Unknown History tablet BEDTIME ascorbic acid 500 mg PO BID 11/20/20 Unknown History (vitamin C) 500 mg tablet (Vitamin C) cholecalciferol 50 mcg PO DAILY 11/20/20 Unknown History (vitamin D3) 50 mcg (2,000 unit) tablet ferrous sulfate 325 mg PO 11/20/20 Unknown History 325 mg (65 mg iron) tablet (FeroSul) haloperidol 0.5 0.5 mg PO 11/20/20 Unknown History mg tablet BEDTIME umeclidinium 62.5 1 inh INHALATION 11/20/20 Unknown History mcg/actuation DAILY blister powder for inhalation (Incruse Ellipta) Exam Exam Date and Time: April 06, 2021 1013 Height,Weight and Vital Signs: Height 5 ft 3 in Weight 83.007 kg Narrative Narrative: EKG 10/2020 Vent. Rate : 069 BPM ? ? Atrial Rate : 069 BPM ?? P-R Int : 140 ms? QRS Dur : 128 ms ? ? QT Int : 422 ms ? ? ? P-R-T Axes : 066 -24 031 degrees ?? QTc Int : 452 ms ? Normal sinus rhythm with sinus arrhythmia Left bundle branch block Abnormal ECG When compared with ECG of 01-OCT-2020 11:54, No significant change was found NM anthony perf SPECT rest & str 02/2020 Impression: ? 1.? Myocardial perfusion imaging study shows no clear evidence of any ischemia. Fixed defect along the inferior wall that mostly reverses with CT attenuation correction except in the apical inferior wall. This is indicative of diaphragmatic attenuation artifact and possible nontransmural infarct towards the apex. 2.? Gated LVEF is diminished; automated calculation 32% during stress and 40% during rest but visually appears much higher. Correlate with echocardiogram. 3. Transient ischemic dilatation not present. ? EKG component of the test reported separately. (Nondiagnostic for ischemia) ECHO 09/2019 1. Mild global hypokinesis of LV contractility 2. Overall LV systolic function is mildly impaired with EF 45-50% 3. Mild aortic regurgitation 4. No change when c/w ECHO from 12/2009 Assessment and Plan Assessment Anesthesia Assessment: Chart Reviewed Final Anesthetic Review History of Problems with Anesthesia: No Documented by User: Courtney Tony MD 04/08/21 09:17 [facility] Past Medical History Medical History Asthma Chronic anemia COPD (chronic obstructive pulmonary disease) Depression Depression Dizziness Esophagitis Gallstones Gastritis GERD (gastroesophageal reflux disease) Hiatal hernia HTN (hypertension) Lung nodules Memory impairment Opioid dependence, uncomplicated Smoker ST segment depression Substance abuse Substance abuse Tobacco use disorder Transient alteration of awareness Undifferentiated schizophrenia Family History Family History Father No problems noted. Mother No problems noted. 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 Housing: House Are you a primary floor care specialist to a significant other at home: No Do you presently have visiting nurse or other home services: Yes (BUILDING CONSTRUCTION PROFESSOR) Alcohol intake: never Patient Tobacco Use Status: Former Tobacco user Tobacco use type: Cigarette Cigarettes Per Day: 4 Second Hand Smoke Exposure: No Substance Use Type: Heroin Are you DNR?: No Advance Directives: No Advance Directives Information Provided: Yes Advance Directives on File: No service: No Current occupational status: unemployed and disabled Meds Allergies Allergy/AdvReac Type Severity Reaction Status Date / Time No Known Allergies Allergy Verified 04/05/21 11:21 Home Medications Medication Instructions Recorded Confirmed Last Taken Type albuterol sulfate 2.5 mg 12/14/19 05/12/20 Unknown History INHALATION QID PRN albuterol sulfate 2 puff PO Q4-6H 12/14/19 05/12/20 Unknown History 90 mcg/actuation PRN aerosol inhaler atorvastatin 20 20 mg PO DAILY 12/14/19 05/12/20 Unknown History mg tablet benztropine 0.5 0.5 mg PO 12/14/19 05/12/20 Unknown History mg tablet BEDTIME buprenorphine 8 2 film 12/14/19 05/12/20 Unknown History mg-naloxone 2 mg SUBLINGUAL DAILY sublingual film cyanocobalamin 1,000 mcg PO 12/14/19 05/12/20 Unknown History (vitamin B-12) DAILY 1,000 mcg tablet docusate sodium 100 mg PO BID 12/14/19 05/12/20 Unknown History 100 mg capsule haloperidol 1 mg PO BEDTIME 12/14/19 05/12/20 Unknown History lactate 2 mg/mL oral concentrate multivitamin 1 tab PO DAILY 12/14/19 05/12/20 Unknown History naloxone 4 1 spray 12/14/19 05/12/20 Unknown History mg/actuation INTRANASAL ONCE nasal spray PRN omeprazole 40 mg 40 mg PO DAILY 12/14/19 05/12/20 Unknown History capsule,delayed release quetiapine 100 mg 150 mg PO 12/14/19 05/12/20 Unknown History tablet BEDTIME quetiapine 50 mg 50 mg PO 12/14/19 05/12/20 Unknown History tablet BID@0900,1700 sertraline 100 mg 100 mg PO DAILY 12/14/19 05/12/20 Unknown History tablet tamsulosin 0.4 mg 0.4 mg PO DAILY 12/14/19 05/12/20 Unknown History capsule trazodone 100 mg 100 mg PO 12/14/19 05/12/20 Unknown History tablet BEDTIME ascorbic acid 500 mg PO BID 11/20/20 Unknown History (vitamin C) 500 mg tablet (Vitamin C) cholecalciferol 50 mcg PO DAILY 11/20/20 Unknown History (vitamin D3) 50 mcg (2,000 unit) tablet ferrous sulfate 325 mg PO 11/20/20 Unknown History 325 mg (65 mg iron) tablet (FeroSul) haloperidol 0.5 0.5 mg PO 11/20/20 Unknown History mg tablet BEDTIME umeclidinium 62.5 1 inh INHALATION 11/20/20 Unknown History mcg/actuation DAILY blister powder for inhalation (Incruse Ellipta) Exam Airway Mallampati Class: III (Edentulous; large tongue) TM Dist: >3cm Neck ROM: Full Denture: Upper and Lower Loose/Missing/Broken Teeth: Yes, Upper and Lower Heart: RRR Lungs: CTA Assessment and Plan Assessment Anesthesia Assessment: Anesthesia Plan Discussed and Chart Reviewed Final Anesthetic Review NPO: Yes ASA Class: III Final Preanesthetic Review: Meds/Allgs Chart Reviewed, Consent Obtained/Reviewed and Anes Risks/Benef Reviewed Patient Risk: Intermediate Procedure Risk: Low Anesthetic Plan Anesthetic Plan: MAC: Disposition: Standard PACU
[2021-04-08] VITALS (12 sets, daily range): BP systolic 107–139; BP diastolic 58–86; PULSE 87–100; RESP 12–16; TEMP 36.4–37.1; O2SAT 92–96
--- NOTE | ~2021-04-08 | XR_ITS ---
EXAMINATION: XR CHEST CLINICAL INFORMATION: Possible aspiration. COMPARISON: Chest radiograph dated from 11/17/[address] abdomen dated from 03/01/2021. TECHNIQUE: AP view of the chest was obtained. FINDINGS: New opacification of the left lower lobe with blunting of the left costophrenic angle, likely related with a small left pleural effusion. There is also worsening volume loss of the left lung and leftward shifting of the cardiomediastinal silhouette. Stable interstitial thickening elsewhere in the lungs. No pneumothorax. No acute osseous abnormalities. XR/XR chest 1V IMPRESSION: New left lower lobe airspace opacities with associated volume loss and ipsilateral shifting of the mediastinum suggesting the presence of atelectasis of the left lower lobe. However, a superimposed infiltrate is difficult to exclude. Small left pleural effusion. Recommended follow-up to ensure adequate resolution of these findings.
[2021-04-08] MEDS: Sodium Phosphate,Mono-Dibasic 133 ML ENEMA PR (09:11)
--- NOTE | 2021-04-08 09:22 | P.HPSUR_ITS ---
Pre-Procedural Eval Section A Date of Service: 04/08/21 Section B Chief Complaint: Fhx of Colon Cancer Details of Present Illness: sister with CRC Relevant Family History (Specify if Yes): Yes Relevant Social History: Other (specify) (heroin) Present Medications: see Short Stay Collaborative assessment Medical History: Significant History (Asthma Chronic anemia COPD (chronic obs tructive pulmonary disease) Depression Depression Dizziness Esophagitis Gallstones Gastritis GERD (gastroesophageal reflux disease) Hiatal hernia HTN (hypertension) Lung nodules Memory impairment Opioid dependence, uncomplicated Smoker ST segment depression Sub) History of Previous Operations: Relevant previous surgery/procedure and date(s) (History of esophagogastroduodenoscopy (EGD) History of prostate biopsy Hx of colonoscopy) Allergies: Allergies Allergy/AdvReac Type Severity Reaction Status Date / Time No Known Allergies Allergy Verified 04/05/21 11:21 Review of Systems Sugical H&P ROS: Negative: Constitution, Cardiovascular, Respiratory, Ne urological, Psychiatric, Hem-Onc, Allergic/Immunologic, Gastrointestinal, Genitourinary, Musculoskeletal, Integumentary, Endocrine and Eyes/Ears/Nose/Throat Exam Surgical H&P Exam: Normal: HEENT, Normal: Heart, Normal: Lungs, Normal: Extremities, Normal: Abdomen, Normal: Skin and Normal: Neurological Plan Diagnosis/Plan: Unchanged I have reviewed the history and physical and performed a pertinent physical examination on my patient. No changes have occurred unless specified.
[2021-04-08] MEDS: Lactated Ringers 1,000 ML 20 ML IVCONT (09:28)
--- NOTE | 2021-04-08 09:38 | PM.OP ---
Brief Operative Note Date of Service: 04/08/21 Pre-op diagnosis: FH of cRC in sister Post-op diagnosis: same Procedure: see op note Surgeon: Callie Amin MD Anesthesia: MAC Was an Insurance Agency Sales Manager used for this Procedure?: No Estimated blood loss (mL): 0 Condition: stable Disposition: PACU
--- NOTE | 2021-04-08 09:39 | W.PM.OPN ---
Operative Note Operative Note Date of Service: 04/08/21 Narrative: Operative Information Procedure Description: Colonoscopy COLONOSCOPY Instrument: Olympus variable stiffness adult scope 190L Colonoscopy Monitoring: Vital signs and clinical assessment, continuous EKG monitoring, Pulse oximetry, Carbon Dioxide monitoring and blood pressure monitoring were done throughout the procedure. Colon withdrawal time was 12 minutes. Procedure: The patient was placed in the left lateral decubitis position and pre-procedure medications were administered. After a digital rectal examination of the ano-rectum, the video colonoscope was inserted into the rectum and advanced through the colon to the cecum/TI. The colonoscope was slowly withdrawn in a retrograde panoramic fashion and the colon mucosa was carefully examined including a retroflexed view of the rectum. Findings and interventions are described below. Procedure Difficulty:moderate, pressure applied Findings: Terminal Ileum-normal Cecum: 10 mm sessile polyp removed with cold snare Ascending Colon: 10-12 mm sessile polyp removed with cold snare, few diverticula seen Transverse Colon -normal Descending Colon:many diverticula seen Sigmoid Colon: severe diverticulosis Rectum: Retroflexion with small internal hemorrhoids, grade I Anorectum - normal Colon preparation: [place] Bowel Preparation Scale Right colon; 1 Transverse colon: 1 Left colon; 2 (0 = Unprepared colon segment with mucosa not seen due to solid stool that cannot be cleared. 1 = Portion of mucosa of the colon segment seen, but other areas of the colon segment not well seen due to staining, residual stool and/or opaque liquid. 2 = Minor amount of residual staining, small fragments of stool and/or opaque liquid, but mucosa of colon segment seen well. 3 = Entire mucosa of colon segment seen well with no residual staining, small fragments of stool or opaque liquid) Impression and Post Procedure Diagnosis: polyps internal hemorrhoids diverticular disease Plan: High fiber diet leaflet Avoid straining at stool, epsom salts and sitz bath, anusol supps or cream Repeat Colonoscopy in 1-2 years if health allows or earlier if clinically indicated Above findings were reviewed with the patient and relevant handouts were provided if indicated.
== END | disposition home or self-care (01) ==
PROVIDERS: PCP Family Medicine; Visit Provider Internal Medicine Gastroenterology
PROC: 0DJD8ZZ Inspection of Lower Intestinal Tract, Via Natural or Artificial Opening Endoscopic (ICD-10-PCS; CPT 45378; principal; 2021-04-08 10:50)
DX: Z12.11 Encounter for screening for malignant neoplasm of colon (principal); Z80.0 Family history of malignant neoplasm of digestive organs; D12.2 Benign neoplasm of ascending colon; K51.40 Inflammatory polyps of colon without complications; K57.30 Diverticulosis of large intestine without perforation or abscess without bleeding; K64.0 First degree hemorrhoids; K21.9 Gastro-esophageal reflux disease without esophagitis; F11.20 Opioid dependence, uncomplicated; J90 Pleural effusion, not elsewhere classified; R91.8 Other nonspecific abnormal finding of lung field; J44.9 Chronic obstructive pulmonary disease, unspecified; D64.9 Anemia, unspecified; F20.9 Schizophrenia, unspecified; Z87.891 Personal history of nicotine dependence; Z79.899 Other long term (current) drug therapy
CPT/HCPCS: 45385; 71045; 88305; J2405

== ENCOUNTER 2021-04-08 13:26 | Emergency (ER) | payer MEDICARE, SELFPAY ==
--- NOTE | ~2021-04-08 | XR_ITS ---
EXAMINATION: XR CHEST CLINICAL INFORMATION: Possible aspiration COMPARISON: Previous chest x-rays most recent from earlier the same day TECHNIQUE: 2 views of the chest were obtained. FINDINGS: The cardiac silhouette appears increased in size however this is probably artifactual from apical lordotic film technique. There is airspace disease seen in the left lower lobe suggestive of pneumonia. The lungs are otherwise clear. There is blunting at the posterior costophrenic angle suggestive of small bilateral pleural effusions. There are degenerative changes of the spine. XR/XR chest 2V IMPRESSION: Left lower lobe pneumonia. Small bilateral pleural effusions.
[2021-04-08 13:29] VITALS: BP 161/107; PULSE 93; RESP 18; TEMP 37.2; O2SAT 96; BMI 32.4
--- NOTE | 2021-04-08 13:35 | PC.NURSE ---
PATIENT'S DAUGHTER JUMANA CALLS AT THIS TIME TO LEAVE CALL BACK NUMBER FOR [facility] IF PATIENT IS DISCHARGED #[phone]
[2021-04-08 13:59] VITALS: BP 128/81; PULSE 88; RESP 16; TEMP 37.1; O2SAT 97
[2021-04-08 14:08] LABS: MANUAL DIFF FLAG NO
[2021-04-08 14:11] LABS: Basophils Percent Auto 0.3 % (0-2); Eosinophils Absolute Auto 0.4 X10*3/uL (0.0-0.4); Eosinophils Percent Auto 3.4 % (0-4); Hemoglobin 15.3 g/dl (14.0-18.0); Imm Gran Abs Auto 0.04 X10*3/uL (0.00-0.03); Imm Gran Pct Auto 0.3 % (0.0-0.4); Lymphocytes Absolute Auto 1.5 X10*3/uL (1.2-4.9); Lymphocytes Percent Auto 12.5 % (20-40); Mean Corpuscular Hemoglobin 29.4 pg (27.0-33.0); Mean Corpuscular Volume 86.5 fL (80.0-98.0); Mean Platelet Volume 10.6 fL (9.4-12.4); Monocytes Absolute Auto 0.6 X10*3/uL (0.1-1.2); Neutrophils Absolute Auto 9.5 x10*3/uL (2.0-8.3); Neutrophils Percent Auto 78.5 % (45-73); Platelet Count 164 X10*3/uL (160-400); Red Cell Distribution Width 14.3 % (11.0-16.0); White Blood Count 12.1 X10*3/uL (4.8-10.8)
--- NOTE | 2021-04-08 14:21 | ED_ITS ---
HPI - General Adult General Chief complaint: General Medical Stated complaint: Aspiration ? Time Seen by Provider: 04/08/21 13:41 Source: patient and material control associate Mode of arrival: ambulatory Limitations: no limitations History of Present Illness HPI narrative: 81 y/o male with schizophrenia, PVD, BPH, substance abuse on suboxone, COPD not on home O2, GERD who presents to the ER from colonoscopy suite with concern of aspiration. He required 100% NRB after the procedure with SpO2 92-95%. He was brought to the ER for further evaluation. On arrival to the ER patient was saturating 96% on 2L NC. He was denying SOB or difficulty breathing. He has a chronic cough and uses inhalers at home for his COPD. He does not remember having any difficulty breathing after the procedure. MD complaint: aspiration Onset (ago): minute(s) Radiation: non-radiation Severity: mild Pain Consistency: now resolved Relieving factors: none Exacerbating factors: none Associated symptoms: denies other symptoms Treatments prior to arrival: none Related Data Home Medications Medication Instructions Recorded Confirmed albuterol sulfate 2.5 mg INHALATION QID PRN 12/14/19 05/12/20 albuterol sulfate 90 2 puff PO Q4-6H PRN 12/14/19 05/12/20 mcg/actuation aerosol inhaler atorvastatin 20 mg tablet 20 mg PO DAILY 12/14/19 05/12/20 benztropine 0.5 mg tablet 0.5 mg PO BEDTIME 12/14/19 05/12/20 buprenorphine 8 mg-naloxone 2 film SUBLINGUAL DAILY 12/14/19 05/12/20 2 mg sublingual film cyanocobalamin (vitamin 1,000 mcg PO DAILY 12/14/19 05/12/20 B-12) 1,000 mcg tablet docusate sodium 100 mg 100 mg PO BID 12/14/19 05/12/20 capsule haloperidol lactate 2 mg/mL 1 mg PO BEDTIME 12/14/19 05/12/20 oral concentrate multivitamin 1 tab PO DAILY 12/14/19 05/12/20 naloxone 4 mg/actuation 1 spray INTRANASAL ONCE PRN 12/14/19 05/12/20 nasal spray omeprazole 40 mg 40 mg PO DAILY 12/14/19 05/12/20 capsule,delayed release quetiapine 100 mg tablet 150 mg PO BEDTIME 12/14/19 05/12/20 quetiapine 50 mg tablet 50 mg PO BID@0900,1700 12/14/19 05/12/20 sertraline 100 mg tablet 100 mg PO DAILY 12/14/19 05/12/20 tamsulosin 0.4 mg capsule 0.4 mg PO DAILY 12/14/19 05/12/20 trazodone 100 mg tablet 100 mg PO BEDTIME 12/14/19 05/12/20 ascorbic acid (vitamin C) 500 mg PO BID 11/20/20 500 mg tablet (Vitamin C) cholecalciferol (vitamin D3) 50 mcg PO DAILY 11/20/20 50 mcg (2,000 unit) tablet ferrous sulfate 325 mg (65 325 mg PO 11/20/20 mg iron) tablet (FeroSul) haloperidol 0.5 mg tablet 0.5 mg PO BEDTIME 11/20/20 umeclidinium 62.5 1 inh INHALATION DAILY 11/20/20 mcg/actuation blister powder for inhalation (Incruse Ellipta) Previous Rx's Medication Instructions Recorded cefuroxime axetil 500 mg tablet 500 mg PO BID 10 Days #28 tab 02/12/20 bisacodyl 5 mg tablet,delayed 10 mg PO BEDTIME 2 Days #4 tab 05/28/20 release (Dulcolax (bisacodyl)) prednisone 20 mg tablet 40 mg PO DAILY 5 Days #10 tab 10/01/20 albuterol sulfate 90 mcg/actuation 2 puff INHALATION Q6H PRN #6.7 g 10/12/20 aerosol inhaler cyclobenzaprine 10 mg tablet 10 mg PO TID PRN #8 tab 10/12/20 doxycycline monohydrate 100 mg 100 mg PO BID #14 cap 10/12/20 capsule lidocaine 5 % topical patch 1 patch TOPICAL DAILY #15 ea 10/12/20 (Lidoderm) prednisone 20 mg tablet 40 mg PO DAILY #10 tab 10/12/20 fluticasone fur. 200 mcg-umeclid 1 inh INHALATION DAILY 30 Days #1 11/17/20 62.5 mcg-vilant 25 mcg ea inhalat.powder (Trelegy Ellipta) finasteride 5 mg tablet 5 mg PO DAILY 90 Days #90 tab 11/20/20 tamsulosin 0.4 mg capsule 0.4 mg PO DAILY #90 cap 09/20/21 oxybutynin chloride 5 mg 5 mg PO DAILY 90 Days #90 tab 01/21/21 tablet,extended release 24 hr bisacodyl 5 mg tablet,delayed 10 mg PO ONCE 1 Days #2 tab 01/26/21 release (Dulcolax (bisacodyl)) magnesium citrate 150 ml PO ONCE 1 Days #300 ml 01/26/21 polyethylene glycol 3350 17 238 g PO ONCE 1 Days #238 g 01/26/21 gram/dose oral powder (Miralax) albuterol sulfate 90 mcg/actuation 1 inh INHALATION QID PRN #6.7 g 04/08/21 aerosol inhaler amoxicillin 875 mg-potassium 1 tab PO BID #20 tab 04/08/21 clavulanate 125 mg tablet (Augmentin) prednisone 20 mg tablet 40 mg PO DAILY #10 tab 04/08/21 Allergies Allergy/AdvReac Type Severity Reaction Status Date / Time No Known Allergies Allergy Verified 04/05/21 11:21 Review of Systems Verdana 4l Review of Systems: Verdana 4d Verdana 4d Constitutional: No Fever, No Chills ENT/Mouth: No sore throat, No Rhinorrhea, No Swallowing Difficulty Cardiovascular: No Chest Pain, No SOB, No Orthopnea, No Edema Respiratory:+ Cough, No Sputum, +Wheezing, No dyspnea GastrointestinalGastrointestinal: No Nausea, No Vomiting, No Diarrhea, No abdomi nal Pain Musculoskeletal: No joint pain, No Myalgias Skin: No Skin Lesions, No rash Neuro: No Weakness, No Numbness, No Dizziness, No Headache Heme/Lymph: No Bruising, No Lymphadenopathy PMFSH Past Medical History Medical History Asthma Chronic anemia COPD (chronic obstructive pulmonary disease) Depression Depression Dizziness Esophagitis Gallstones Gastritis GERD (gastroesophageal reflux disease) Hiatal hernia HTN (hypertension) Lung nodules Memory impairment Opioid dependence, uncomplicated Smoker ST segment depression Substance abuse Substance abuse Tobacco use disorder Transient alteration of awareness Undifferentiated schizophrenia Surgical History History of esophagogastroduodenoscopy (EGD) History of prostate biopsy Hx of colonoscopy Family History Family History Father No problems noted. Mother No problems noted. 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 Housing: House Are you a primary healthcare customer service to a significant other at home: No Do you presently have visiting nurse or other home services: Yes (MOTOR TESTER) Alcohol intake: never Patient Tobacco Use Status: Former Tobacco user Tobacco use type: Cigarette Cigarettes Per Day: 4 Smoked in Last 30 Days: No Second Hand Smoke Exposure: No Use of substances other than those prescribed or required for medical reasons: No Substance Use Type: Heroin Advance Directives: No Advance Directives Information Provided: Yes service: No Current occupational status: unemployed and disabled Physical Exam Verdana 4l Vital Signs: Verdana 4d Verdana 4d Vital Signs: Verdana 4d Verdana 4Bd Last Vital Signs Verdana 4d Educational Technology Specialist New 4d Educational Technology Specialist New 4d Temp 97.8 F 04/08/21 15:19 Educational Technology Specialist New 4d Pulse 87 04/08/21 15:19 Educational Technology Specialist New 4d Resp 19 04/08/21 15:19 BP 128/75 04/08/21 15:19 Pulse Ox 95 04/08/21 15:19 Oxygen Flow Rate 2 04/08/21 13:29 BMI result Body Mass Index 32.4 Appearance: Alert. Oriented X3. No acute distress. Eyes: Pupils equal, round and reactive to light. ENT: Pharynx normal. Neck: Normal inspection. Neck supple. CVS: Normal heart rate and rhythm. Pulses normal. Respiratory: No respiratory distress. Breath sounds diminished with end- expiraotory wheeze L>R. Abdomen: Soft and nontender. +BS x4 Skin: Skin warm and dry. Normal skin color. Normal skin turgor. No rashes. Extremities: No lower extremity edema. Neuro: Oriented X 3. No motor deficit. No sensory deficit. Course Course Course Narrative: 81 y/o male with history of COPD, schizophrenia, substance abuse on suboxone, PVD, BPH who presents to the ER with hypoxia after colonoscopy, with concern for aspiration episode. Initially was requiring 100% non-rebreather with saturations 92-95%. He has been weaned to 2 L with saturations 96-97% on arrival to the ER. He is in no respiratory distress and denies any respiratory complaints. On exam he does have some expiratory wheezing in the left lung. Will give a DuoNeb and get chest x-ray to evaluate for pneumonia, although aspiration pneumonia can take 48 hours to develop on plain film. Will wean off O2 will monitor on room air. Reevaluation(s) Reevaluation #1: SpO2 on room air 93-95%. No respiratory distress. His chest x-ray showing left lower lobe pneumonia. Suspect he had this prior to initiation of anesthesia and the procedure today. Will treat with Augmentin and steroids given his wheezing. He has inhalers at home. His SpO2 remained 93% or greater on room air for 2 hours while in the emergency department. He would like to be discharged home. He was counseled on aspiration pneumonia and how symptoms can worsen, encourage follow-up with his primary care and return to the emergency room if his breathing were to worsen. Patient agrees with plan is stable for discharge home. Medical Decision Making Lab Data Result diagrams: 04/08/21 14:05 04/08/21 14:05 Labs: Lab Results 04/08/21 04/08/21 Range/Units 14:05 14:05 WBC 12.1 H (4.8-10.8) X10*3/uL RBC 5.20 (4.60-5.80) X10*6/uL Hgb 15.3 (14.0-18.0) g/dl Hct 45.0 (42.0-52.0) % MCV 86.5 (80.0-98.0) fL MCH 29.4 (27.0-33.0) pg MCHC 34.0 (31.0-36.0) g/dl RDW 14.3 (11.0-16.0) % Plt Count 164 (160-400) X10*3/uL MPV 10.6 (9.4-12.4) fL Immature Gran % (Auto) 0.3 (0.0-0.4) % Neut % (Auto) 78.5 H (45-73) % Lymph % (Auto) 12.5 L (20-40) % [place] % (Auto) 5.0 (2-11) % Eos % (Auto) 3.4 (0-4) % Baso % (Auto) 0.3 (0-2) % Lymph # (Auto) 1.5 (1.2-4.9) X10*3/uL [place] # (Auto) 0.6 (0.1-1.2) X10*3/uL Eos # (Auto) 0.4 (0.0-0.4) X10*3/uL Baso # (Auto) 0.0 (0.0-0.2) X10*3/uL Abs Immat Gran (auto) 0.04 H (0.00-0.03) X10*3/uL Absolute Neuts (auto) 9.5 H (2.0-8.3) x10*3/uL Absolute Nucleated RBC 0.000 (0.0-0.012) X10*3/uL Nucleated RBC % (auto) 0.0 (0.0-0.2) /100WBC Sodium 136 (135-145) mmol/L Potassium 4.1 (3.3-5.1) mmol/L Chloride 106 (96-108) mmol/L Carbon Dioxide 23 (22-29) mmol/L Anion Gap 11 L (12-20) BUN 17 H (9-16) mg/dL Creatinine 1.02 (0.5-1.4) mg/dL Estim Creat Clear Calc 54.1 Estimated GFR > 60 Random Glucose 100 (60-115) mg/dL Calcium 9.1 (8.4-10.2) mg/dL Total Bilirubin 0.7 (0.0-1.0) mg/dL Direct Bilirubin 0.3 (0.0-0.5) mg/dL AST 26 (5-37) U/L ALT 18 (0-40) U/L Alkaline Phosphatase 74 D (39-117) U/L Total Protein 6.6 (6.5-8.0) g/dL Albumin 3.8 (3.5-5.0) g/dL Discharge Plan Discharge Clinical Impression: Aspiration pneumonia Patient Disposition: Home, Self-Care Instructions: Aspiration Pneumonia (DC) Additional Instructions: Take the prescribed antibiotic as directed as well as the prescribed steroid. Use your inhalers Follow up with your doctor this week. If you develop new or worsening symptoms call 911 or come back to the ER for further evaluation. Prescriptions: New amoxicillin-pot clavulanate [Augmentin] 875-125 mg tablet 1 tab PO BID Qty: 20 0RF prednisone 20 mg tablet 40 mg PO DAILY Qty: 10 0RF albuterol sulfate 90 mcg/actuation HFA aerosol inhaler 1 inh inhalation QID PRN (Reason: shortness of breath or wheezing) Qty: 6.7 0RF No Action tamsulosin 0.4 mg capsule 0.4 mg PO DAILY Qty: 90 3RF oxybutynin chloride 5 mg tablet extended release 24hr 5 mg PO DAILY 90 Days Qty: 90 2RF cefuroxime axetil 500 mg tablet 500 mg PO BID 10 Days Qty: 28 0RF doxycycline monohydrate 100 mg capsule 100 mg PO BID Qty: 14 0RF prednisone 20 mg tablet 40 mg PO DAILY Qty: 10 0RF albuterol sulfate 90 mcg/actuation HFA aerosol inhaler 2 puff inhalation Q6H PRN (Reason: shortness of breath or wheezing) Qty: 6.7 0RF lidocaine [Lidoderm] 5 % adhesive patch,medicated 1 patch topical DAILY Qty: 15 0RF Rx Instructions: leave on most painful area for up to 12 hrs cyclobenzaprine 10 mg tablet 10 mg PO TID PRN (Reason: muscle spasm) Qty: 8 0RF prednisone 20 mg tablet 40 mg PO DAILY 5 Days Qty: 10 0RF buprenorphine-naloxone 8-2 mg film 2 film sublingual DAILY 0RF quetiapine 50 mg tablet 50 mg PO BID@0900,1700 0RF haloperidol lactate 2 mg/mL concentrate 1 mg PO BEDTIME 0RF trazodone 100 mg tablet 100 mg PO BEDTIME 0RF tamsulosin 0.4 mg capsule 0.4 mg PO DAILY 0RF quetiapine 100 mg tablet 150 mg PO BEDTIME 0RF omeprazole 40 mg capsule,delayed release(DR/EC) 40 mg PO DAILY 0RF cyanocobalamin (vitamin B-12) 1,000 mcg tablet 1,000 mcg PO DAILY 0RF sertraline 100 mg tablet 100 mg PO DAILY 0RF benztropine 0.5 mg tablet 0.5 mg PO BEDTIME 0RF multivitamin Tablet 1 tab PO DAILY 0RF albuterol sulfate 90 mcg/actuation HFA aerosol inhaler 2 puff PO Q4-6H PRN (Reason: Shortness Of Breath) 0RF albuterol sulfate 2.5 mg /3 mL (0.083 %) solution for nebulization 2.5 mg inhalation QID PRN (Reason: Shortness Of Breath) 0RF docusate sodium 100 mg capsule 100 mg PO BID 0RF atorvastatin 20 mg tablet 20 mg PO DAILY 0RF naloxone 4 mg/actuation spray,non-aerosol 1 spray intranasal ONCE PRN (Reason: Opioid Reversal) 0RF Trelegy Ellipta 200-62.5-25 mcg blister with device 1 inh inhalation DAILY 30 Days Qty: 1 6RF magnesium citrate Solution 150 ml PO ONCE 1 Days Qty: 300 0RF polyethylene glycol 3350 [Miralax] 17 gram/dose powder 238 g PO ONCE 1 Days Qty: 238 0RF bisacodyl [Dulcolax (bisacodyl)] 5 mg tablet,delayed release (DR/EC) 10 mg PO ONCE 1 Days Qty: 2 0RF Rx Instructions: take orally as directed prior to colonoscopy bisacodyl [Dulcolax (bisacodyl)] 5 mg tablet,delayed release (DR/EC) 10 mg PO BEDTIME 2 Days Qty: 4 0RF Incruse Ellipta 62.5 mcg/actuation blister with device 1 inh inhalation DAILY 0RF cholecalciferol (vitamin D3) 50 mcg (2,000 unit) tablet 50 mcg PO DAILY 0RF ferrous sulfate [FeroSul] 325 mg (65 mg iron) tablet 325 mg PO 0RF ascorbic acid (vitamin C) [Vitamin C] 500 mg tablet 500 mg PO BID 0RF haloperidol 0.5 mg tablet 0.5 mg PO BEDTIME 0RF finasteride 5 mg tablet 5 mg PO DAILY 90 Days Qty: 90 1RF Referrals: Hallie Mcclendon MD [Primary Care Provider] - 2 days (follow up PNA) Interventions: ED Discharge Assessment Last Done: 04/08/21 16:10 Discharge Date/Time: 04/08/21 16:12
[2021-04-08 14:26] LABS: Alanine Aminotransferase 18 U/L (0-40); Albumin Level 3.8 g/dL (3.5-5.0); Alkaline Phosphatase 74 U/L (39-117); Anion Gap 11 (12-20); Aspartate Amino Transferase 26 U/L (5-37); Bilirubin Direct 0.3 mg/dL (0.0-0.5); Bilirubin Total 0.7 mg/dL (0.0-1.0); Blood Urea Nitrogen 17 mg/dL (9-16); Calcium 9.1 mg/dL (8.4-10.2); Carbon Dioxide 23 mmol/L (22-29); Chloride 106 mmol/L (96-108); Creatinine Clr Calc Pharmacy 54.1; Estimated Glomerular Filt Rate > 60; Glucose Random 100 mg/dL (60-115); Potassium 4.1 mmol/L (3.3-5.1); Sodium 136 mmol/L (135-145); Total Protein 6.6 g/dL (6.5-8.0)
[2021-04-08] MEDS: Amoxicillin/Potassium Clav 875 MG TABLET PO (15:07)
[2021-04-08 15:08] VITALS: PULSE 95; RESP 18; O2SAT 95
[2021-04-08] MEDS: Albuterol/Iprat 2.5/0.5MG 3 ML AMPUL.NEB INHALE (15:15)
[2021-04-08 15:17] VITALS: PULSE 86; RESP 14; O2SAT 96
[2021-04-08 15:19] VITALS: BP 128/75; PULSE 87; RESP 19; TEMP 36.6; O2SAT 95
--- NOTE | 2021-04-08 16:04 | PC.NURSE ---
call to primary contact. daughter will belt picker patient
== END 2021-04-08 16:12 | disposition home or self-care (01) ==
PROVIDERS: Physician Assistant; Emergency Provider Emergency Medicine Emergency Medical Services; PCP Family Medicine
DX: J95.4 Chemical pneumonitis due to anesthesia (principal); Y83.8 Other surgical procedures as the cause of abnormal reaction of the patient, or of later complication, without mention of misadventure at the time of the procedure; F11.20 Opioid dependence, uncomplicated; K21.9 Gastro-esophageal reflux disease without esophagitis; I10 Essential (primary) hypertension
CPT/HCPCS: 36415; 71046; 80048; 80076; 85025; 94640; 99284

== ENCOUNTER → 2021-04-16 09:10 | Outpatient (BNVA) | payer MEDICARE, SELFPAY | PROVIDERS: PCP Family Medicine; Visit Provider Internal Medicine Pulmonary Disease | DX: J44.9 Chronic obstructive pulmonary disease, unspecified (principal); R91.8 Other nonspecific abnormal finding of lung field | CPT/HCPCS: 99212 ==

== ENCOUNTER 2021-04-20 10:02 | Outpatient (REF) | payer MEDICARE, SELFPAY ==
--- NOTE | ~2021-04-20 | XR_ITS ---
EXAMINATION: XR CHEST CLINICAL INFORMATION: Pneumonia. COMPARISON: Chest 04/08/2021 TECHNIQUE: 2 views of the chest were obtained. FINDINGS: The lungs are well-expanded with new patchy opacity seen in the right upper lobe and old left lower lobe. There is no pleural effusion. There is minimal bilateral apical pleural thickening Heart size and pulmonary vascularity is normal. There is mild spondylosis dorsal spine. No lytic process seen. XR/XR chest 2V IMPRESSION: Expanded lungs with new patchy airspace disease right upper lobe. There is old patchy opacity in left lung base improved since 04/08/2021.
== END 2021-04-20 10:03 | disposition home or self-care (01) ==
LOC: HO.XRAY 10:02
PROVIDERS: Absent Provider Family Medicine; PCP Family Medicine; Visit Provider Emergency Medicine
DX: J18.9 Pneumonia, unspecified organism (principal)
CPT/HCPCS: 71046

== ENCOUNTER → 2021-04-23 10:10 | Outpatient (BNVA) | payer MEDICARE, SELFPAY | PROVIDERS: PCP Family Medicine; Referring Provider Family Medicine; Visit Provider Nurse Practitioner | DX: K63.5 Polyp of colon (principal) | CPT/HCPCS: 99212 ==

== ENCOUNTER 2021-04-27 09:15 | Outpatient (REF) | payer MEDICARE, SELFPAY ==
--- NOTE | ~2021-04-27 | XR_ITS ---
EXAMINATION: XR CHEST CLINICAL INFORMATION: Pneumonitis COMPARISON: Chest x-ray 04/20/2021 TECHNIQUE: 2 views of the chest were obtained. FINDINGS: Cardiac silhouette is normal in size. The lungs are mildly hyperinflated. There is improved aeration of the right upper lobe in addition to improved aeration of the left lung base. Some subtle linear opacities of both lung bases are noted which although nonspecific are most suggestive of atelectasis. Degenerative changes of the spine. XR/XR chest 2V IMPRESSION: Resolving bilateral airspace disease.
[2021-04-27 11:58] LABS: PSA,Total (Free>4and<10) 11.16 ng/mL (0.00-4.00)
== END 2021-04-27 09:16 | disposition home or self-care (01) ==
LOC: HO.LAB 09:15
PROVIDERS: Absent Provider Urology; PCP Family Medicine; Visit Provider Family Medicine
DX: Z12.5 Encounter for screening for malignant neoplasm of prostate (principal); J22 Unspecified acute lower respiratory infection; J69.0 Pneumonitis due to inhalation of food and vomit; N13.8 Other obstructive and reflux uropathy; N40.1 Benign prostatic hyperplasia with lower urinary tract symptoms; R39.15 Urgency of urination
CPT/HCPCS: 36415; 71046; 84153

== ENCOUNTER → 2021-05-21 09:17 | Outpatient (BNVA) | payer MEDICARE, SELFPAY | PROVIDERS: PCP Family Medicine; Visit Provider Internal Medicine Pulmonary Disease | DX: J44.9 Chronic obstructive pulmonary disease, unspecified (principal); J44.1 Chronic obstructive pulmonary disease with (acute) exacerbation; R91.8 Other nonspecific abnormal finding of lung field | CPT/HCPCS: 99212 ==

== ENCOUNTER → 2021-06-09 08:32 | Outpatient (BNVA) | payer MEDICARE, SELFPAY | PROVIDERS: PCP Family Medicine; Visit Provider Urology | DX: Z13.89 Encounter for screening for other disorder (principal) | CPT/HCPCS: Q3014 ==

== ENCOUNTER → 2021-07-30 09:14 | Outpatient (BNVA) | payer MEDICARE, SELFPAY | PROVIDERS: PCP Family Medicine; Visit Provider Urology | DX: N40.1 Benign prostatic hyperplasia with lower urinary tract symptoms (principal); R39.15 Urgency of urination; R97.20 Elevated prostate specific antigen [PSA] | CPT/HCPCS: 51798; 99212 ==

== ENCOUNTER → 2021-09-23 09:06 | Outpatient (BNVA) | payer OTHER, SELFPAY | PROVIDERS: PCP Family Medicine; Visit Provider Internal Medicine Pulmonary Disease | DX: J44.9 Chronic obstructive pulmonary disease, unspecified (principal); R91.8 Other nonspecific abnormal finding of lung field | CPT/HCPCS: 99212 ==

== ENCOUNTER 2022-02-10 10:00 | Outpatient (REF) | payer OTHER, SELFPAY ==
--- NOTE | ~2022-02-10 | CT_ITS ---
EXAMINATION: CT CHEST WITHOUT CONTRAST CLINICAL INFORMATION: Pulmonary nodule. Follow-up. COMPARISON: Chest x-ray 04/27/2021 and 03/01/2021. CT chest 03/09/2020. TECHNIQUE: Multidetector volumetric CT imaging of the chest was done. Axial MIP volume rendering provided. Sagittal and coronal reformatted images were obtained. This CT examination was performed using dose optimization techniques as appropriate, variously including the following: *Automated exposure control *Adjustment of mA and/or kV according to patient size (this includes techniques or standardized protocols for targeted exams where dose is matched to indication/reason for exam; i.e. extremities or head) *Use of iterative reconstruction technique DLP: 185 mGy-cm. FINDINGS: SUPERVISOR BLUEPRINTING AND PHOTOCOPY: Unremarkable. LUNGS: There is diffuse centrilobular and paraseptal emphysema with peripherally based small cysts in the upper lobes. There is bilateral apical parenchymal scarring. Small pulmonary nodules are stable. The largest pulmonary nodule measuring 4 mm right upper lobe axial image 184/7. There are subpleural reticular thickening and patchy ground-glass opacity right upper lobe, left upper lobe and right lower lobe. MEDIASTINUM: The thyroid lobes are symmetric and normal. The central trachea and the bronchi are widely patent. Heart size and the great vessels are normal caliber. There is mild coronary artery calcifications. No pericardial effusion seen. There is a moderate-sized hiatal hernia. No abnormal size mediastinal lymph nodes seen. CORONARY ARTERY CALCIFICATION: [id number] coronary artery calcifications are present. PLEURA: There is no pleural effusion. No pleural mass or thickening. AXILLA: No lymphadenopathy. UPPER ABDOMEN: Visualized liver, spleen, pancreas and bilateral adrenal glands unremarkable. There are radiopaque gallstones. OSSEOUS STRUCTURES: Exaggerated thoracic kyphosis with mild ventral spondylosis noted. CT/CT chest wo IV con IMPRESSION: 1. Centrilobular and paraseptal emphysema with bilateral apical parenchymal scarring. There are no pulmonary nodules, mass or consolidation. 2. Moderate-sized hiatal hernia. 3. Cholelithiasis. 4. There are subpleural reticular thickening and patchy ground-glass opacity right upper lobe, left upper lobe and right lower lobe. Fleischner guidelines were followed.
== END 2022-02-10 10:01 | disposition home or self-care (01) ==
LOC: HO.CT 10:00
PROVIDERS: PCP Family Medicine; Visit Provider Internal Medicine Pulmonary Disease
DX: R91.8 Other nonspecific abnormal finding of lung field (principal)
CPT/HCPCS: 71250

== ENCOUNTER → 2022-02-16 10:58 | Outpatient (BNVA) | payer OTHER, SELFPAY | PROVIDERS: PCP Family Medicine; Visit Provider Urology | DX: R97.20 Elevated prostate specific antigen [PSA] (principal); N40.1 Benign prostatic hyperplasia with lower urinary tract symptoms; R39.15 Urgency of urination; Z98.890 Other specified postprocedural states | CPT/HCPCS: Q3014 ==

== ENCOUNTER → 2022-02-25 09:19 | Outpatient (BNVA) | payer OTHER, SELFPAY | PROVIDERS: PCP Family Medicine; Visit Provider Internal Medicine Pulmonary Disease | DX: J44.9 Chronic obstructive pulmonary disease, unspecified (principal); R91.8 Other nonspecific abnormal finding of lung field | CPT/HCPCS: 99212 ==

== ENCOUNTER → 2022-04-07 09:20 | Outpatient (BNVA) | payer OTHER, SELFPAY | PROVIDERS: PCP Family Medicine; Visit Provider Internal Medicine Pulmonary Disease | DX: Z01.811 Encounter for preprocedural respiratory examination (principal); R91.8 Other nonspecific abnormal finding of lung field; J44.9 Chronic obstructive pulmonary disease, unspecified | CPT/HCPCS: 99212 ==

== ENCOUNTER → 2022-04-25 06:19 | Day surgery (SDC) | payer OTHER, SELFPAY ==
--- NOTE | 2022-04-25 08:18 | PC.NURSE ---
pt admits to coffee with cream and sugar and 0500, notified anesthesia Dr. Finney, case cancelled, pt counseled re: importance of nothing to eat or drink after midnight including gum or candy or coffee and to call to reschedule
== END ==
PROVIDERS: PCP Family Medicine; Visit Provider Urology
DX: R97.20 Elevated prostate specific antigen [PSA] (principal); Z53.8 Procedure and treatment not carried out for other reasons

== ENCOUNTER 2022-07-11 10:17 | Outpatient (REF) | payer OTHER, SELFPAY ==
[2022-07-11 13:01] LABS: B Type Natriuretic Peptide < 10 pg/mL (<100)
[2022-07-11 13:17] LABS: Anion Gap 15 (12-20); Blood Urea Nitrogen 28 mg/dL (9-16); Calcium 10.2 mg/dL (8.4-10.2); Carbon Dioxide 24 mmol/L (22-29); Chloride 105 mmol/L (96-108); Estimated Glomerular Filt Rate 59; Glucose Random 100 mg/dL (60-115); Potassium 4.6 mmol/L (3.3-5.1); Sodium 139 mmol/L (135-145)
== END 2022-07-11 10:18 | disposition home or self-care (01) ==
LOC: HO.LAB 10:17
PROVIDERS: PCP Family Medicine; Visit Provider Internal Medicine Cardiovascular Disease
DX: I42.9 Cardiomyopathy, unspecified (principal)
CPT/HCPCS: 36415; 80048; 83880

== ENCOUNTER → 2022-07-14 10:01 | Outpatient (BNVA) | payer OTHER, SELFPAY | PROVIDERS: PCP Family Medicine; Visit Provider Urology | DX: N40.1 Benign prostatic hyperplasia with lower urinary tract symptoms (principal); R39.15 Urgency of urination; R97.20 Elevated prostate specific antigen [PSA] | CPT/HCPCS: Q3014 ==

== ENCOUNTER → 2022-07-22 09:14 | Outpatient (BNVA) | payer OTHER, SELFPAY | PROVIDERS: PCP Family Medicine; Visit Provider Internal Medicine Pulmonary Disease | DX: Z01.811 Encounter for preprocedural respiratory examination (principal); J44.9 Chronic obstructive pulmonary disease, unspecified | CPT/HCPCS: 99212 ==

== ENCOUNTER 2022-08-29 06:51 | Day surgery (SDC) | payer OTHER, SELFPAY ==
[2022-08-24 13:58] VITALS: BMI 33.1
--- NOTE | 2022-08-26 10:28 | HO.ANESPROP2 ---
Documented by User: Cristin George NP 08/26/22 10:41 HPI - Anesthesia Eval Consult details Narrative: 82yo M for Targeted Prostate Needle Biopsy Medically optimized Pulmo optimized Cardio optimized (considering ICD for low EF, but non-urgent) Suboxone for hx IVDA PMFSH Active Problems Active Problems: All Active Problems Benign prostatic hyperplasia (BPH) with urinary urgency (Acute) Depression (Acute) Colon cancer screening (Acute) History of sphincterotomy of sphincter of Oddi (Acute) Schizophrenia (Acute) PVD (peripheral vascular disease) (Acute) Varicose veins of right lower extremity with inflammation (Acute) Dyspnea on exertion (Acute) Elevated PSA (Acute) Varicose veins of left lower extremity with inflammation (Acute) Family history of colon cancer (Acute) Sessile colonic polyp (Acute) COPD exacerbation (Acute) Preop pulmonary/respiratory exam (Acute) Lung nodules (Acute) COPD (chronic obstructive pulmonary disease) (Acute) GERD (gastroesophageal reflux disease) (Acute) Chronic anemia (Acute) Substance abuse (Acute) Gallstones (Acute) Smoker (Acute) Past Medical History Medical History (Updated 08/24/22 @ 13:41 by Suzy Martini RN) Asthma Chronic anemia COPD (chronic obstructive pulmonary disease) Depression Dizziness Esophagitis Gallstones Gastritis GERD (gastroesophageal reflux disease) Hiatal hernia HTN (hypertension) Lung nodules Memory impairment Opioid dependence, uncomplicated Smoker ST segment depression Substance abuse Tobacco use disorder Transient alteration of awareness Undifferentiated schizophrenia Family History Family History Father No problems noted. Mother No problems noted. 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 Housing: House Are you a primary childcare center administrator to a significant other at home: No Do you presently have visiting nurse or other home services: Yes (INSTRUMENT MECHANICS SUPERVISOR) Alcohol intake: never Patient Tobacco Use Status: Current everyday Tobacco user Tobacco use type: Cigarette Cigarettes Per Day: 2 Date Education Initiated: 08/29/22 Second Hand Smoke Exposure: No Use of substances other than those prescribed or required for medical reasons: No Substance Use Type: Heroin Are you DNR?: Yes Advance Directives: No Advance Directives Information Provided: Yes service: No Current occupational status: unemployed and disabled Meds Allergies Allergy/AdvReac Type Severity Reaction Status Date / Time No Known Allergies Allergy Verified 07/22/22 09:28 Home Medications Medication Instructions Recorded Confirmed Last Taken Type albuterol sulfate 2.5 mg/3 mL 2.5 mg inhalation QID PRN 12/14/19 08/24/22 Unknown History (0.083 %) solution for nebulization Shortness Of Breath atorvastatin 20 mg tablet 20 mg PO DAILY 12/14/19 08/24/22 Unknown History benztropine 0.5 mg tablet 0.5 mg PO BEDTIME 12/14/19 08/24/22 Unknown History buprenorphine 8 mg-naloxone 2 mg 2 film sublingual DAILY 12/14/19 08/24/22 08/29/22 History sublingual film cyanocobalamin (vitamin B-12) 1,000 mcg PO DAILY 12/14/19 08/24/22 Unknown History 1,000 mcg tablet docusate sodium 100 mg capsule 100 mg PO BID 12/14/19 08/24/22 Unknown History haloperidol lactate 2 mg/mL oral 1 mg PO BEDTIME 12/14/19 07/14/22 Unknown History concentrate multivitamin 1 tab PO DAILY 12/14/19 08/24/22 Unknown History naloxone 4 mg/actuation nasal spray 1 spray intranasal ONCE PRN Opioid 12/14/19 08/24/22 Unknown History Reversal omeprazole 40 mg capsule,delayed 40 mg PO DAILY 12/14/19 08/24/22 08/29/22 History release quetiapine 100 mg tablet 150 mg PO BEDTIME 12/14/19 08/24/22 Unknown History quetiapine 50 mg tablet 50 mg PO BID@0900,1700 12/14/19 08/24/22 08/29/22 History sertraline 100 mg tablet 100 mg PO DAILY 12/14/19 08/24/22 08/29/22 History trazodone 100 mg tablet 100 mg PO BEDTIME 12/14/19 08/24/22 Unknown History ascorbic acid (vitamin C) 500 mg 500 mg PO BID 11/20/20 08/24/22 Unknown History tablet (Vitamin C) cholecalciferol (vitamin D3) 50 50 mcg PO DAILY 11/20/20 08/24/22 Unknown History mcg (2,000 unit) tablet ferrous sulfate 325 mg (65 mg 325 mg PO DAILY 11/20/20 08/24/22 Unknown History iron) tablet (FeroSul) haloperidol 0.5 mg tablet 0.5 mg PO BEDTIME 11/20/20 08/24/22 Unknown History aspirin 81 mg tablet,delayed 81 mg PO BEDTIME 06/09/21 08/24/22 Unknown History release sacubitril 49 mg-valsartan 51 mg 1 tab PO BID 07/30/21 08/24/22 Unknown History tablet (Entresto) Exam Exam Date and Time: August 26, 2022 1028 Height,Weight and Vital Signs: Height 5 ft 3 in Weight 84.822 kg Pertinent Lab Results Pertinent Lab Results: Laboratory Tests 07/11/22 10:34 Sodium 139 Potassium 4.6 Chloride 105 Carbon Dioxide 24 BUN 28 H Creatinine 1.19 Narrative Narrative: EKG 04/2022 SR LAD Nonspecific intraventricular block ECHO 06/2022 1. LV size is normal. LV wall thickness is normal. Overall LV sys function is severely impaired with EF 25-30%. Mid to distal anterior, anteroseptal and apical espino are akinetic. Inderterminate diastolic function 2. RV is normal in size and function 3. Mild AR 4. No 5. No pulm htn 6. No pericardial effusion. No significant change from 08/2021 Assessment and Plan Assessment Anesthesia Assessment: Chart Reviewed Final Anesthetic Review History of Problems with Anesthesia: No Documented by User: Rojas Padilla MD 08/29/22 09:04 [facility] Past Medical History Medical History (Updated 08/24/22 @ 13:41 by Suzy Martini RN) Asthma Chronic anemia COPD (chronic obstructive pulmonary disease) Depression Dizziness Esophagitis Gallstones Gastritis GERD (gastroesophageal reflux disease) Hiatal hernia HTN (hypertension) Lung nodules Memory impairment Opioid dependence, uncomplicated Smoker ST segment depression Substance abuse Tobacco use disorder Transient alteration of awareness Undifferentiated schizophrenia Family History Family History Father No problems noted. Mother No problems noted. 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 Housing: House Are you a primary childcare center administrator to a significant other at home: No Do you presently have visiting nurse or other home services: Yes (INSTRUMENT MECHANICS SUPERVISOR) Alcohol intake: never Patient Tobacco Use Status: Current everyday Tobacco user Tobacco use type: Cigarette Cigarettes Per Day: 2 Date Education Initiated: 08/29/22 Second Hand Smoke Exposure: No Use of substances other than those prescribed or required for medical reasons: No Substance Use Type: Heroin Are you DNR?: Yes Advance Directives: No Advance Directives Information Provided: Yes service: No Current occupational status: unemployed and disabled Meds Allergies Allergy/AdvReac Type Severity Reaction Status Date / Time No Known Allergies Allergy Verified 07/22/22 09:28 Home Medications Medication Instructions Recorded Confirmed Last Taken Type albuterol sulfate 2.5 mg/3 mL 2.5 mg inhalation QID PRN 12/14/19 08/24/22 Unknown History (0.083 %) solution for nebulization Shortness Of Breath atorvastatin 20 mg tablet 20 mg PO DAILY 12/14/19 08/24/22 Unknown History benztropine 0.5 mg tablet 0.5 mg PO BEDTIME 12/14/19 08/24/22 Unknown History buprenorphine 8 mg-naloxone 2 mg 2 film sublingual DAILY 12/14/19 08/24/22 08/29/22 History sublingual film cyanocobalamin (vitamin B-12) 1,000 mcg PO DAILY 12/14/19 08/24/22 Unknown History 1,000 mcg tablet docusate sodium 100 mg capsule 100 mg PO BID 12/14/19 08/24/22 Unknown History haloperidol lactate 2 mg/mL oral 1 mg PO BEDTIME 12/14/19 07/14/22 Unknown History concentrate multivitamin 1 tab PO DAILY 12/14/19 08/24/22 Unknown History naloxone 4 mg/actuation nasal spray 1 spray intranasal ONCE PRN Opioid 12/14/19 08/24/22 Unknown History Reversal omeprazole 40 mg capsule,delayed 40 mg PO DAILY 12/14/19 08/24/22 08/29/22 History release quetiapine 100 mg tablet 150 mg PO BEDTIME 12/14/19 08/24/22 Unknown History quetiapine 50 mg tablet 50 mg PO BID@0900,1700 12/14/19 08/24/22 08/29/22 History sertraline 100 mg tablet 100 mg PO DAILY 12/14/19 08/24/22 08/29/22 History trazodone 100 mg tablet 100 mg PO BEDTIME 12/14/19 08/24/22 Unknown History ascorbic acid (vitamin C) 500 mg 500 mg PO BID 11/20/20 08/24/22 Unknown History tablet (Vitamin C) cholecalciferol (vitamin D3) 50 50 mcg PO DAILY 11/20/20 08/24/22 Unknown History mcg (2,000 unit) tablet ferrous sulfate 325 mg (65 mg 325 mg PO DAILY 11/20/20 08/24/22 Unknown History iron) tablet (FeroSul) haloperidol 0.5 mg tablet 0.5 mg PO BEDTIME 11/20/20 08/24/22 Unknown History aspirin 81 mg tablet,delayed 81 mg PO BEDTIME 06/09/21 08/24/22 Unknown History release sacubitril 49 mg-valsartan 51 mg 1 tab PO BID 07/30/21 08/24/22 Unknown History tablet (Entresto) Exam Airway Mallampati Class: I TM Dist: >3cm Neck ROM: Full Denture: Upper and Lower Heart: ok. See above. Lungs: ok Assessment and Plan Assessment Anesthesia Assessment: Anesthesia Plan Discussed Final Anesthetic Review Family History of Problems with Anesthesia: No History of Problems with Anesthesia: No NPO: Yes ASA Class: IV Final Preanesthetic Review: No Changes in Pt Med Stat, Meds/Allgs Chart Reviewed, Consent Obtained/Reviewed, Anes Risks/Benef Reviewed and DNR Form (If Appl.) Patient Risk: High Procedure Risk: Low Anesthetic Plan Anesthetic Plan: GA and Agree w/ Assess. and Plan Disposition: Standard PACU
[2022-08-29 07:11] VITALS: BMI 32.4
[2022-08-29 07:23] VITALS: BP 124/63; PULSE 79; RESP 18; TEMP 36.1; O2SAT 97; BMI 32.4
--- NOTE | 2022-08-29 07:50 | MHC.SHP ---
Pre-Procedural Eval Section A Date of Service: 08/29/22 The patient is an INPATIENT: No Changes since office visit: No Cold of Flu in the past 2 weeks, No New Medical Problems, No Changes in Medication and No Patient answered all questions The History & Physical has been completed within 30 days and I have reviewed it.: No Section B Chief Complaint: Elevated prostate specific antigen [PSA] Details of Present Illness: eleavted PSA prior negative biopsy Relevant Family History (Specify if Yes): No Relevant Social History: None Present Medications: see Short Stay Collaborative assessment Medical History: Significant History History of Previous Operations: No relevant previous surgery Allergies: Allergies Allergy/AdvReac Type Severity Reaction Status Date / Time No Known Allergies Allergy Verified 07/22/22 09:28 Review of Systems Sugical H&P ROS: Negative: Constitution, Cardiovascular, Respiratory, Neurological, Psychiatric, Hem-Onc, Allergic/Immunologic, Gastrointestinal, Genitourinary, Musculoskeletal, Integumentary, Endocrine and Eyes/Ears/Nose/Throat Exam Surgical H&P Exam: Normal: HEENT, Normal: Heart, Normal: Lungs, Normal: Extremities, Normal: Abdomen, Normal: Skin and Normal: Neurological Plan Diagnosis/Plan: Unchanged (MRI US fusion biopsy) I have reviewed the history and physical and performed a pertinent physical examination on my patient. No changes have occurred unless specified. Time Spent With Patient Time: Total time managing care of this patient today ____ minutes.
[2022-08-29] MEDS: levoFLOXacin 500 MG TABLET PO (07:55)
[2022-08-29 09:55] VITALS: BP 132/70; PULSE 69; RESP 20; TEMP 37.1; O2SAT 95
[2022-08-29 10:00] VITALS: BP 115/62; PULSE 60; RESP 16; O2SAT 95
--- NOTE | 2022-08-29 10:01 | P.OP_ITS ---
Operative Note Operative Note Date of Service: 08/29/22 Narrative: Preoperative diagnosis: Elevated PSA Postoperative diagnosis: Elevated PSA Procedure: 2. transrectal ultrasound-guided pudendal nerve block 3. MRI-US fusion image registration performed 3. transperineal ultrasound-guided prostate biopsy 16 core including targets Surgeon: Dr. Stevie Molina Anesthetic: Sedation plus local Indications for procedure: Elevated PSA Procedure: After informed consent was verified, the patient was brought into the procedure area. Patient identity confirmed. Perioperative antibiotics confirmed. Safety pause time out performed. Anesthesia performed per protocol Ultrasound probe was placed per rectum Focalis software and hardware platform used An ultrasound-guided pudendal nerve block was performed using 10 cc of 1% lidocaine. 8 cc was placed at the base and 2 cc of the apex. Perineal injection of local. Ultrasound placement was made with grid calibration for height and prostate diameter in both the transverse and longitudinal planes. Once grid calibration was confirmed ultrasound acquisition was performed in the transverse fashion. Three dimensional ultrasound model was created. The planned needle targeting based on prior acquisition of MRI imaging was overlaid on the ultrasound images and targets confirmed through ultrasound review. Based on pre -planning evaluation 16 targets had been identified. These included 2 targets of the PI-RADS 5 prostate right apical gland mid - access was compromised by pubic arch crowding He tolerated the procedure well. Was transferred to stable condition in the PACU. Printed instructions regarding antibiotic use and common side effects such as lo w-grade temperature, potential infection and bleeding were given Pathology: 16 prostate biopsy CPT 21953 Modifier 22 for complexity of planning and procedure execution
[2022-08-29 10:05] VITALS: BP 134/64; PULSE 60; RESP 16; O2SAT 95
[2022-08-29 10:10] VITALS: BP 136/69; PULSE 50; RESP 16; O2SAT 95
[2022-08-29 10:25] VITALS: BP 126/79; PULSE 62; RESP 16; TEMP 37.1; O2SAT 95
== END 2022-08-29 10:34 | disposition home or self-care (01) ==
PROVIDERS: PCP Family Medicine; Visit Provider Urology
PROC: (CPT 55700; principal; 2022-08-29 08:40)
DX: R97.20 Elevated prostate specific antigen [PSA] (principal); N42.32 Atypical small acinar proliferation of prostate; N40.1 Benign prostatic hyperplasia with lower urinary tract symptoms; R39.15 Urgency of urination; D64.9 Anemia, unspecified; K80.20 Calculus of gallbladder without cholecystitis without obstruction; K21.9 Gastro-esophageal reflux disease without esophagitis; F32.A Depression, unspecified; F20.3 Undifferentiated schizophrenia; I10 Essential (primary) hypertension; J44.9 Chronic obstructive pulmonary disease, unspecified; R91.8 Other nonspecific abnormal finding of lung field; Z79.51 Long term (current) use of inhaled steroids; Z79.82 Long term (current) use of aspirin; Z79.899 Other long term (current) drug therapy; F11.20 Opioid dependence, uncomplicated; Z66 Do not resuscitate; F17.210 Nicotine dependence, cigarettes, uncomplicated
CPT/HCPCS: 55700; 88305; 88344; J2795; J3010

== ENCOUNTER → 2022-09-06 10:18 | Outpatient (BNVA) | payer OTHER, SELFPAY | PROVIDERS: PCP Family Medicine; Visit Provider Urology ==

== ENCOUNTER 2022-09-20 13:34 | Outpatient (AMB) | payer OTHER, SELFPAY ==
--- NOTE | 2022-09-20 13:35 | MHC.OFFVIS ---
Intake Intake Visit Reasons: Bx results Intake Note: Patient is present for Telephone biopsy follow up Urology Med: Finasteride, Oxybutynin, Tamsulosin, Antibiotic Allergy: None Blood Thinner: Aspirin Allergies No Known Allergies Allergy (Verified 09/20/22 13:36) HPI HPI Comments History of Present Illness Details Joseph is a pleasant male. He is a patient of Dr. Simpson. He is seen for the following urologic conditions - BPH - elevated PSA Telemedicine Evaluation 15 min Consultation [employer] Video attempted Yoruba translation provided in office by qualified medical safety director Discussion of targeted biopsy results No evidence of cancer Continue to follow for chronically elevated PSA Six month follow-up PSA Lower urinary tract symptoms Longstanding Primary complaint is nocturia with high elevated residual Responded well to tamsulosin and finasteride PSA - 05/01 6.0, 05/03 8.6, 05/04 11 Prior biopsy performed for PSA 8 which was negative 2016 chronic inflammation - 09/02 MRI targeted biopsy [facility] 07/02 MRI cm left lateral posterior PI-RADS 4 lesion 6 month follow-up PSA PFSH Medical History Asthma Chronic anemia COPD (chronic obstructive pulmonary disease) Depression Dizziness Esophagitis Gallstones Gastritis GERD (gastroesophageal reflux disease) Hiatal hernia HTN (hypertension) Lung nodules Memory impairment Opioid dependence, uncomplicated Smoker ST segment depression Substance abuse Tobacco use disorder Transient alteration of awareness Undifferentiated schizophrenia Surgical History History of esophagogastroduodenoscopy (EGD) History of prostate biopsy Hx of colonoscopy Family History Father No problems noted. Mother No problems noted. 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 Housing: House Are you a primary manager intensive care to a significant other at home: No Do you presently have visiting nurse or other home services: Yes (CHARGING OPERATOR) Alcohol intake: never Patient Tobacco Use Status: Current everyday Tobacco user Tobacco use type: Cigarette Cigarettes Per Day: 2 Second Hand Smoke Exposure: No Substance Use Type: Heroin service: No Current occupational status: unemployed and disabled Review of Systems Const All systems reviewed & are unremarkable except as noted in HPI and below Reports no additional complaints Resp Reports no additional complaints GI Reports no additional complaints Reports as per HPI Musc Reports no additional complaints Physical Exam Telemedicine evaluation Appropriate responses Regular breathing rate and rhythm HEENT Head: Yes normal to inspection Ears: hearing grossly normal bilaterally Eyes General: appearance normal, both eyes and all related structures Neck Neck: Yes normal visual inspection Chest Chest palpation & inspection: normal inspection of the chest Resp Effort & Inspection: normal respiratory effort and able to speak in complete sentences Assessment & Plan Assessment & Plan (1) Benign prostatic hyperplasia (BPH) with urinary urgency: Code(s): N40.1 - Benign prostatic hyperplasia with lower urinary tract symptoms; R39.15 - Urgency of urination (2) Elevated PSA: Comment: Prior biopsy for PSA 8 NAD Code(s): R97.20 - Elevated prostate specific antigen [PSA] Plan Six month follow-up PSA Orders: Orders Prostate Specific Antigen 6 Months N40.1 - Benign prostatic hyperplasia with lower urinary tract symptoms, R39.15 - Urgency of urination Medications: Refilled finasteride 5 mg PO DAILY 90 days 90 tabs 1RF N13.8 - Other obstructive and reflux uropathy, N40.1 - Benign prostatic hyperplasia with lower urinary tract symptoms, R33.9 - Retention of urine, unspecified, R39.15 - Urgency of urination tamsulosin 0.4 mg PO DAILY 90 caps 1RF N40.1 - Benign prostatic hyperplasia with lower urinary tract symptoms, R39.15 - Urgency of urination Patient Instructions: Imaging studies, laboratory and physical exam results were discussed and reviewed in detail. No major barriers to patient understanding were identified. An opportunity to ask questions regarding the treatment plan was provided. All questions were answered. The patient expressed understanding and agreement with the above treatment plan. The patient is aware they should contact our office by phone for worsening of their current condition or the appearance of new urologic symptoms. Compliance is encouraged with any medications and followup testing that is ordered. It is a privilege to participate in the urologic care of your patient. If you have any questions or concerns regarding treatment for the above conditions, or other urologic issues, please do not hesitate to contact me. The office telephone contact is [phone]. This note is constructed using voice recognition software. While every effort has been made to ensure accuracy retail assistant manager errors may have been included. Yours sincerely, Dr Stevie Molina MD, [facility] - Urology Providers of Expert, Compassionate Care for the Genitourinary System Telehealth Telehealth Location of provider rendering services: practice address Location of patient: address on file Patient Identification confirmed using: Name, : Yes Telehealth method: video Patient verbally consented to treatment: Yes Patient verbally consented to billing insurance company: Yes Patient informed of any privacy concerns related to visit: Yes Coding Level of Care Code Tele Est Pt Level 3 (64578) Diagnoses Benign prostatic hyperplasia (BPH) with urinary urgency N40.1; R39.15 Elevated PSA R97.20
== END 2022-09-20 15:45 | disposition home or self-care (01) ==
LOC: HO.HUSH 13:34
PROVIDERS: PCP Family Medicine; Visit Provider Urology
DX: N40.1 Benign prostatic hyperplasia with lower urinary tract symptoms (principal); R39.15 Urgency of urination; R97.20 Elevated prostate specific antigen [PSA]
CPT/HCPCS: 99213

== ENCOUNTER → 2022-09-20 13:34 | Outpatient (BNVA) | payer OTHER, SELFPAY | PROVIDERS: PCP Family Medicine; Visit Provider Urology | DX: R97.20 Elevated prostate specific antigen [PSA] (principal); N40.1 Benign prostatic hyperplasia with lower urinary tract symptoms; N13.8 Other obstructive and reflux uropathy; R39.15 Urgency of urination; Z79.899 Other long term (current) drug therapy | CPT/HCPCS: Q3014 ==

== ENCOUNTER 2022-11-17 09:02 | Outpatient (AMB) | payer OTHER, SELFPAY ==
--- NOTE | 2022-11-17 09:06 | A.OFFVIS_ITS ---
Intake Vital Signs 11/17/22 09:07 Height 5 ft 3 in Weight 185 lb 3.013 oz BMI 32.8 BP 92/57 L Blood Pressure Location Rt brachial Position Sitting Pulse 86 Pulse Source Doppler Pulse Oximetry (%) 95 Oxygen Delivery Method Room Air Intake Visit Reasons: Dyspnea Allergies No Known Allergies Allergy (Verified 11/17/22 09:10) HPI Dyspnea HPI Details 82-year-old gentleman, former 50+ years smoker, quit 2020, now followed for moderate COPD and bilateral pulmonary nodules.?? He has been using Trelegy, theophylline and albuterol MDI/nebs with good control of his symptoms.? After the last office visit he has been treated with a course of azithromycin with improvement, but not complete resolution of his productive cough. Though, he denies in acute exacerbation at this time. [facility] Medical History Asthma Chronic anemia COPD (chronic obstructive pulmonary disease) Depression Dizziness Esophagitis Gallstones Gastritis GERD (gastroesophageal reflux disease) Hiatal hernia HTN (hypertension) Lung nodules Memory impairment Opioid dependence, uncomplicated Smoker ST segment depression Substance abuse Tobacco use disorder Transient alteration of awareness Undifferentiated schizophrenia Surgical History History of esophagogastroduodenoscopy (EGD) History of prostate biopsy Hx of colonoscopy Family History Father No problems noted. Mother No problems noted. 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: House Are you a primary care transitions nurse to a significant other at home: No Do you presently have visiting nurse or other home services: Yes (COAT HANGER SHAPER MACHINE OPERATOR) Alcohol intake: never Patient Tobacco Use Status: Current everyday Tobacco user Tobacco use type: Cigarette Cigarettes Per Day: 2 Second Hand Smoke Exposure: No Substance Use Type: Heroin service: No Current occupational status: unemployed and disabled Review of Systems Const Denies daytime sleepiness, Denies excessive sweating, Denies fatigue, Denies fever(s), Denies lethargy, Denies malaise, Denies night sweats, Denies snoring and Denies weight loss Eyes Denies blurry vision and Denies itchy eyes ENT Denies nasal congestion, Denies post nasal drip, Denies sinus pain, Denies sinus pressure and Denies other ( Thrush) Card Denies chest pain, Denies pedal edema, Denies dyspnea, Denies orthopnea and Denies paroxysmal nocturnal dyspnea Resp Reports cough, Denies hemoptysis, Reports excessive phlegm production, Denies dyspnea, Denies snoring and Denies wheezing GI Denies abdominal pain and Denies heartburn Musc Denies myalgias, Denies arthralgias and Denies joint swelling Skin/Breast Denies rash Neuro Denies memory loss and Denies seizure-like activity Psych Denies abnormal sleep pattern, Denies anxiety and Denies memory loss Endo Denies excessive sweating, Denies fatigue and Denies heat intolerance Griffin/Lymph Denies easy bruising Aller/Immun Denies itchy eyes, Denies seasonal rhinorrhea and Denies wheezing Physical Exam Vital Signs: Last Vital Signs Pulse 86 11/17/22 09:07 BP 92/57 L 11/17/22 09:07 Pulse Ox 95 11/17/22 09:07 Oxygen Delivery Method Room Air 11/17/22 09:07 BMI result Body Mass Index 32.8 Const General: no acute distress and alert Nutritional Appearance: not obese Orientation/consciousness: Other orientation findings ( oriented) HEENT Head: Yes atraumatic Eyes General: appearance normal, both eyes and all related structures Sclerae: sclerae normal EOM: EOMs intact bilaterally Neck Neck: Yes supple Lymphatic: no lymphadenopathy noted Resp Effort & Inspection: normal respiratory effort and no use of accessory muscles Auscultation: clear to auscultation bilaterally Cardio Rate: regular rate Rhythm: regular rhythm Heart sounds: no gallops, no murmurs and no rubs Skin General skin exam: other ( warm) Extrem General: No clubbing, No cyanosis and No edema Assessment & Plan Assessment & Plan (1) COPD (chronic obstructive pulmonary disease): Code(s): J44.9 - Chronic obstructive pulmonary disease, unspecified Plan: Still with underlying bronchitic cough. Will treat with a course of Augmentin. Continue baseline regimen of Trelegy and albuterol MDI. (2) Lung nodules: Code(s): R91.8 - Other nonspecific abnormal finding of lung field Plan: Results of CT scan reviewed, now with nodules at this time. Will continue with yearly screening. Medications: New amoxicillin-pot clavulanate 875-125 mg 1 tab PO BID 14 tabs 0RF 7 days Coding Level of Care Code Est Pt Level 4 (76455) Diagnoses COPD (chronic obstructive pulmonary disease) J44.9 Lung nodules R91.8
[2022-11-17 09:07] VITALS: BP 92/57; PULSE 86; O2SAT 95; BMI 32.8
== END 2022-11-17 09:28 | disposition home or self-care (01) ==
PROVIDERS: PCP Family Medicine; Visit Provider Internal Medicine Pulmonary Disease
DX: J44.9 Chronic obstructive pulmonary disease, unspecified (principal); R91.8 Other nonspecific abnormal finding of lung field
CPT/HCPCS: 99214

== ENCOUNTER → 2022-11-17 09:02 | Outpatient (BNVA) | payer OTHER, SELFPAY | PROVIDERS: PCP Family Medicine; Visit Provider Internal Medicine Pulmonary Disease | DX: J44.9 Chronic obstructive pulmonary disease, unspecified (principal); R91.8 Other nonspecific abnormal finding of lung field | CPT/HCPCS: 99212 ==

== ENCOUNTER 2022-12-13 09:29 | Outpatient (REF) | payer OTHER, SELFPAY ==
[2022-12-13 10:09] LABS: MANUAL DIFF FLAG NO
[2022-12-13 10:36] LABS: Basophils Percent Auto 0.5 % (0-2); Eosinophils Absolute Auto 0.6 X10*3/uL (0.0-0.4); Eosinophils Percent Auto 7.5 % (0-4); Hematocrit 45.7 % (42.0-52.0); Hemoglobin 15.5 g/dl (14.0-18.0); Imm Gran Abs Auto 0.02 X10*3/uL (0.00-0.03); Imm Gran Pct Auto 0.2 % (0.0-0.4); Lymphocytes Absolute Auto 2.5 X10*3/uL (1.2-4.9); Lymphocytes Percent Auto 30.2 % (20-40); Mean Corpuscular HGB Conc 33.9 g/dl (31.0-36.0); Mean Corpuscular Hemoglobin 30.1 pg (27.0-33.0); Mean Corpuscular Volume 88.7 fL (80.0-98.0); Mean Platelet Volume 10.5 fL (9.4-12.4); Monocytes Absolute Auto 0.5 X10*3/uL (0.1-1.2); Monocytes Percent Auto 6.5 % (2-11); Neutrophils Absolute Auto 4.5 x10*3/uL (2.0-8.3); Neutrophils Percent Auto 55.1 % (45-73); Platelet Count 182 X10*3/uL (160-400); Red Blood Count 5.15 X10*6/uL (4.60-5.80); Red Cell Distribution Width 12.7 % (11.0-16.0); White Blood Count 8.1 X10*3/uL (4.8-10.8)
[2022-12-13 10:43] LABS: Estimated Average Glucose 117 mg/dL; Hemoglobin A1c % 5.7 % (<6.0)
[2022-12-13 10:54] LABS: B Type Natriuretic Peptide < 10 pg/mL (<100)
[2022-12-13 11:16] LABS: Alanine Aminotransferase 24 U/L (0-40); Albumin Level 4.3 g/dL (3.5-5.0); Alkaline Phosphatase 88 U/L (39-117); Anion Gap 13 (12-20); Aspartate Amino Transferase 25 U/L (5-37); Bilirubin Total 0.5 mg/dL (0.0-1.0); Blood Urea Nitrogen 21 mg/dL (9-16); Calcium 10.3 mg/dL (8.4-10.2); Carbon Dioxide 24 mmol/L (22-29); Chloride 106 mmol/L (96-108); Estimated Glomerular Filt Rate > 60; Glucose Random 104 mg/dL (60-115); Iron 131 mcg/dL (45-160); Percent Iron Saturation 52 % (15-50); Potassium 3.8 mmol/L (3.3-5.1); Sodium 139 mmol/L (135-145); Total Iron Binding Capacity 251 mcg/dL (228-428); Total Protein 7.6 g/dL (6.5-8.0); Unsaturated Iron Binding 120 ug/dL
[2022-12-13 11:25] LABS: Ferritin 506 ng/mL (20-250); Thyroid Stimulating Hormone 2.54 uIU/mL (0.32-4.0)
[2022-12-13 11:33] LABS: Folate 10.6 ng/mL (> or = 4.0); Vitamin B12 > 2000 pg/mL (200-900)
== END 2022-12-13 09:30 | disposition home or self-care (01) ==
LOC: HO.LAB 09:29
PROVIDERS: PCP Family Medicine; Visit Provider Family Medicine
DX: I50.20 Unspecified systolic (congestive) heart failure (principal); K92.0 Hematemesis; E66.09 Other obesity due to excess calories; Z68.31 Body mass index [BMI] 31.0-31.9, adult; R73.03 Prediabetes
CPT/HCPCS: 36415; 80053; 82607; 82728; 82746; 83036; 83540; 83880; 84439; 84443; 85025

== ENCOUNTER 2023-02-01 09:02 | Outpatient (REF) | payer OTHER, SELFPAY ==
[2023-02-01 12:47] LABS: Alanine Aminotransferase 32 U/L (0-40); Albumin Level 4.2 g/dL (3.5-5.0); Alkaline Phosphatase 75 U/L (39-117); Aspartate Amino Transferase 35 U/L (5-37); Bilirubin Direct 0.1 mg/dL (0.0-0.5); Bilirubin Total 0.5 mg/dL (0.0-1.0); Iron 141 mcg/dL (45-160); Percent Iron Saturation 56 % (15-50); Total Iron Binding Capacity 250 mcg/dL (228-428); Total Protein 7.5 g/dL (6.5-8.0); Unsaturated Iron Binding 109 ug/dL
[2023-02-01 12:50] LABS: Ferritin 577 ng/mL (20-250)
[2023-02-01 12:58] LABS: Vitamin B12 978 pg/mL (200-900)
== END 2023-02-01 09:03 | disposition home or self-care (01) ==
LOC: HO.HHCL 09:02
PROVIDERS: Visit Provider Nurse Practitioner Primary Care
DX: R79.89 Other specified abnormal findings of blood chemistry (principal)
CPT/HCPCS: 36415; 80076; 82607; 82728; 83540

== ENCOUNTER 2023-02-07 09:01 | Outpatient (REF) | payer OTHER, SELFPAY ==
[2023-02-07 11:01] LABS: MANUAL DIFF FLAG NO
[2023-02-07 11:22] LABS: Basophils Percent Auto 0.5 % (0-2); Eosinophils Absolute Auto 0.6 X10*3/uL (0.0-0.4); Eosinophils Percent Auto 7.6 % (0-4); Hematocrit 46.6 % (42.0-52.0); Hemoglobin 15.6 g/dl (14.0-18.0); Imm Gran Abs Auto 0.02 X10*3/uL (0.00-0.03); Imm Gran Pct Auto 0.2 % (0.0-0.4); Lymphocytes Absolute Auto 2.9 X10*3/uL (1.2-4.9); Lymphocytes Percent Auto 35.1 % (20-40); Mean Corpuscular HGB Conc 33.5 g/dl (31.0-36.0); Mean Corpuscular Hemoglobin 29.8 pg (27.0-33.0); Mean Corpuscular Volume 88.9 fL (80.0-98.0); Mean Platelet Volume 11.2 fL (9.4-12.4); Monocytes Absolute Auto 0.6 X10*3/uL (0.1-1.2); Monocytes Percent Auto 7.6 % (2-11); Neutrophils Absolute Auto 4.1 x10*3/uL (2.0-8.3); Platelet Count 192 X10*3/uL (160-400); Red Blood Count 5.24 X10*6/uL (4.60-5.80); Red Cell Distribution Width 13.2 % (11.0-16.0); White Blood Count 8.4 X10*3/uL (4.8-10.8)
== END 2023-02-07 09:02 | disposition home or self-care (01) ==
LOC: HO.HHCL 09:01
PROVIDERS: Visit Provider Nurse Practitioner Primary Care
DX: R79.89 Other specified abnormal findings of blood chemistry (principal)
CPT/HCPCS: 36415; 85025

== ENCOUNTER 2023-03-22 08:46 | Outpatient (REF) | payer OTHER, SELFPAY ==
[2023-03-22 11:06] LABS: Prostate Specific Antigen 20.68 ng/mL (<0.05-4.0)
== END 2023-03-22 08:47 | disposition home or self-care (01) ==
LOC: HO.LAB 08:46
PROVIDERS: PCP Family Medicine; Visit Provider Urology
DX: N40.1 Benign prostatic hyperplasia with lower urinary tract symptoms (principal); N13.8 Other obstructive and reflux uropathy; R39.15 Urgency of urination; Z12.5 Encounter for screening for malignant neoplasm of prostate
CPT/HCPCS: 36415; 84153

== ENCOUNTER 2023-03-23 08:46 | Outpatient (AMB) | payer OTHER, SELFPAY ==
[2023-03-23 08:50] VITALS: BP 120/62; PULSE 102; O2SAT 96; BMI 33.6
--- NOTE | 2023-03-23 08:50 | MHC.OFFVIS ---
Intake Vital Signs 03/23/23 08:50 Height 5 ft 3 in Weight 189 lb 9.561 oz BMI 33.6 BP 120/62 Blood Pressure Location Rt brachial Position Sitting Pulse 102 H Pulse Source Doppler Pulse Oximetry (%) 96 Oxygen Delivery Method Room Air Intake Visit Reasons: Dyspnea Allergies No Known Allergies Allergy (Verified 03/23/23 09:00) HPI Dyspnea HPI Details 83-year-old gentleman, former 50+ years smoker, quit 2020, now followed for moderate COPD and bilateral pulmonary nodules.?? He has been using Trelegy, theophylline and albuterol MDI/nebs with good control of his symptoms. After the last office visit he has been treated with a course of Augmentin with significant improvement in his cough.? He denies any acute exacerbations at this time. [facility] Medical History Asthma Chronic anemia COPD (chronic obstructive pulmonary disease) Depression Dizziness Esophagitis Gallstones Gastritis GERD (gastroesophageal reflux disease) Hiatal hernia HTN (hypertension) Lung nodules Memory impairment Opioid dependence, uncomplicated Smoker ST segment depression Substance abuse Tobacco use disorder Transient alteration of awareness Undifferentiated schizophrenia Surgical History History of esophagogastroduodenoscopy (EGD) History of prostate biopsy Hx of colonoscopy Family History Father No problems noted. Mother No problems noted. 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 Housing: House Are you a primary director career services to a significant other at home: No Do you presently have visiting nurse or other home services: Yes (AUTOMOTIVE SERVICE WRITER) Alcohol intake: never Patient Tobacco Use Status: Current everyday Tobacco user Tobacco use type: Cigarette Cigarettes Per Day: 4 Second Hand Smoke Exposure: No Substance Use Type: Heroin service: No Current occupational status: unemployed and disabled Review of Systems Const Denies daytime sleepiness, Denies excessive sweating, Denies fatigue, Denies fever(s), Denies lethargy, Denies malaise, Denies night sweats, Denies snoring and Denies weight loss Eyes Denies blurry vision and Denies itchy eyes ENT Denies nasal congestion, Denies post nasal drip, Denies sinus pain, Denies sinus pressure and Denies other ( Thrush) Card Denies chest pain, Denies pedal edema, Denies dyspnea, Denies orthopnea and Denies paroxysmal nocturnal dyspnea Resp Denies cough, Denies hemoptysis, Denies excessive phlegm production, Denies dyspnea, Denies snoring and Denies wheezing GI Denies abdominal pain and Denies heartburn Musc Denies myalgias, Denies arthralgias and Denies joint swelling Skin/Breast Denies rash Neuro Denies memory loss and Denies seizure-like activity Psych Denies abnormal sleep pattern, Denies anxiety and Denies memory loss Endo Denies excessive sweating, Denies fatigue and Denies heat intolerance Griffin/Lymph Denies easy bruising Aller/Immun Denies itchy eyes, Denies seasonal rhinorrhea and Denies wheezing Physical Exam Vital Signs: Last Vital Signs Pulse 102 H 03/23/23 08:50 BP 120/62 03/23/23 08:50 Pulse Ox 96 03/23/23 08:50 Oxygen Delivery Method Room Air 03/23/23 08:50 BMI result Body Mass Index 33.6 Const General: no acute distress and alert Nutritional Appearance: not obese Orientation/consciousness: Other orientation findings ( oriented) HEENT Head: Yes atraumatic Eyes General: appearance normal, both eyes and all related structures Sclerae: sclerae normal EOM: EOMs intact bilaterally Neck Neck: Yes supple Lymphatic: no lymphadenopathy noted Resp Effort & Inspection: normal respiratory effort and no use of accessory muscles Auscultation: clear to auscultation bilaterally Cardio Rate: regular rate Rhythm: regular rhythm Heart sounds: no gallops, no murmurs and no rubs Skin General skin exam: other ( warm) Extrem General: No clubbing, No cyanosis and No edema Assessment & Plan Assessment & Plan (1) COPD (chronic obstructive pulmonary disease): Code(s): J44.9 - Chronic obstructive pulmonary disease, unspecified Plan: Well controlled on current regimen of Trelegy, theophylline, and albuterol MDI. Continue current regimen. (2) Pulmonary fibrosis: Code(s): J84.10 - Pulmonary fibrosis, unspecified Plan: Early pulmonary fibrosis changes on CT chest that essentially clinically asymptomatic at this time. Continue to monitor with serial imaging and pulmonary function testing. Orders: Orders PFT pulmonary function test Today J84.10 - Pulmonary fibrosis, unspecified Coding Level of Care Code Est Pt Level 4 (37126) Diagnoses COPD (chronic obstructive pulmonary disease) J44.9 Pulmonary fibrosis J84.10
== END 2023-03-23 09:16 | disposition home or self-care (01) ==
PROVIDERS: PCP Family Medicine; Visit Provider Internal Medicine Pulmonary Disease
DX: J44.9 Chronic obstructive pulmonary disease, unspecified (principal); J84.10 Pulmonary fibrosis, unspecified
CPT/HCPCS: 99214

== ENCOUNTER → 2023-03-23 08:46 | Outpatient (BNVA) | payer OTHER, SELFPAY | PROVIDERS: PCP Family Medicine; Visit Provider Internal Medicine Pulmonary Disease | DX: J44.9 Chronic obstructive pulmonary disease, unspecified (principal); J84.10 Pulmonary fibrosis, unspecified | CPT/HCPCS: 99212 ==

== ENCOUNTER 2023-03-24 11:03 | Outpatient (AMB) | payer OTHER, SELFPAY ==
--- NOTE | 2023-03-24 11:44 | A.OFFVIS_ITS ---
Intake Intake Visit Reasons: 6M PSA(set) Intake Note: Patient is Present for Follow Up PSA Urology Medication: Finasteride Antibiotic Allergies: None Blood Thinners: Aspirin PVR: 17 Allergies No Known Allergies Allergy (Verified 03/24/23 11:55) Medication List - Last Reconciled 03/24/23 by Stevie Molina MD ascorbic acid (vitamin C) (Vitamin C) 500 mg PO BID ascorbic acid (vitamin C) 250 mg PO DAILY atorvastatin 20 mg PO DAILY cholecalciferol (vitamin D3) 50 mcg PO DAILY cyanocobalamin (vitamin B-12) 1,000 mcg PO DAILY docusate sodium 100 mg PO BID ferrous sulfate (FeroSul) 325 mg PO DAILY finasteride 5 mg PO DAILY 90 days furosemide 20 mg PO DAILY metoprolol succinate ER 25 mg PO QAM multivitamin 1 tab PO DAILY nicotine transdermal DAILY omega-3 acid ethyl esters 1 cap PO BID omeprazole 40 mg PO DAILY quetiapine 50 mg PO BID@0900,1700 sacubitril-valsartan 49-51 mg (Entresto) 1 tab PO BID tamsulosin 0.4 mg PO DAILY theophylline ER 400 mg PO DAILY 30 days trazodone 50 mg PO BEDTIME HPI HPI Comments History of Present Illness Details Joseph is a pleasant male. He is a patient of Dr. Simpson. He is seen for the following urologic conditions - BPH - elevated PSA Trinidadian translation provided in office by qualified medical biller Prior targeted prostate biopsy with no evidence of disease Continues with elevated PSA Continue to follow Q 6 months Effective urination Continue finasteride Lower urinary tract symptoms Longstanding Primary complaint is nocturia with high elevated residual Responded well to tamsulosin and finasteride PSA - 05/01 6.0, 05/03 8.6, 05/04 11, 04/05 21 Prior biopsy performed for PSA 8 which was negative 2016 chronic inflammation - 09/02 MRI targeted biopsy [facility] 07/02 MRI cm left lateral posterior PI-RADS 4 lesion 6 month follow-up PSA [facility] Medical History Asthma Chronic anemia COPD (chronic obstructive pulmonary disease) Depression Dizziness Esophagitis Gallstones Gastritis GERD (gastroesophageal reflux disease) Hiatal hernia HTN (hypertension) Lung nodules Memory impairment Opioid dependence, uncomplicated Smoker ST segment depression Substance abuse Tobacco use disorder Transient alteration of awareness Undifferentiated schizophrenia Surgical History History of esophagogastroduodenoscopy (EGD) History of prostate biopsy Hx of colonoscopy Family History Father No problems noted. Mother No problems noted. 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 Housing: House Are you a primary customer care voice consultant to a significant other at home: No Do you presently have visiting nurse or other home services: Yes (GENERALIST) Alcohol intake: never Patient Tobacco Use Status: Current everyday Tobacco user Tobacco use type: Cigarette Cigarettes Per Day: 4 Second Hand Smoke Exposure: No Substance Use Type: Heroin service: No Current occupational status: unemployed and disabled Review of Systems Const Denies chills and Denies fever(s) Card Reports no additional complaints and Denies syncope Resp Denies cough GI Denies abdominal pain and Denies heartburn Reports as per HPI and Denies change in libido Neuro Denies syncope Psych Denies change in libido Endo Denies change in libido Physical Exam Const General: cooperative, healthy appearing, comfortable and no acute distress Orientation/consciousness: patient oriented x3 HEENT Face and sinus: Yes normal facial exam Mouth: moist mucous membranes Neck Neck: Yes normal visual inspection, Yes full ROM and Yes trachea midline Chest Chest palpation & inspection: normal inspection of the chest Resp Effort & Inspection: normal respiratory effort, able to speak in complete sentences and no respiratory distress GI Inspection: Yes normal to inspection Back/Spine/Pelvis Cervical Spine: normal cervical lordosis Thoracic/Lumbar Spine: thoracic and lumbar spine normal to inspection Skin General skin exam: no rashes or lesions noted Neuro General: patient oriented x3, gait normal, tone normal and moves all extremities Extrem General: Yes normal to inspection and Yes capillary refill normal Office Procedures Post Void Residual Post Residual Void Post Void Residual (PVR): 17 [id number] Void Residual by ultrasound Assessment & Plan Assessment & Plan (1) Benign prostatic hyperplasia (BPH) with urinary urgency: Code(s): N40.1 - Benign prostatic hyperplasia with lower urinary tract symptoms; R39.15 - Urgency of urination (2) Elevated PSA: Comment: Prior biopsy for PSA 8 NAD Code(s): R97.20 - Elevated prostate specific antigen [PSA] Plan Six-month follow-up PSA Orders: Orders AMB Post Void Residual by ultrasound Today N40.1 - Benign prostatic hyperplasia with lower urinary tract symptoms, R39.15 - Urgency of urination PSA,Total (Free>4and<10) 6 Months R97.20 - Elevated prostate specific antigen [PSA] Patient Instructions: Imaging studies, laboratory and physical exam results were discussed and reviewed in detail. No major barriers to patient understanding were identified. An opportunity to ask questions regarding the treatment plan was provided. All questions were answered. The patient expressed understanding and agreement with the above treatment plan. The patient is aware they should contact our office by phone for worsening of their current condition or the appearance of new urologic symptoms. Compliance is encouraged with any medications and followup testing that is ordered. It is a privilege to participate in the urologic care of your patient. If you have any questions or concerns regarding treatment for the above conditions, or other urologic issues, please do not hesitate to contact me. The office telephone contact is [phone]. This note is constructed using voice recognition software. While every effort has been made to ensure accuracy lap cutter truer operator errors may have been included. Yours sincerely, Dr Stevie Molina MD, JESS[facility] - Urology Providers of Expert, Compassionate Care for the Genitourinary System Coding Level of Care Code Est Pt Level 3 (61405) Diagnoses Benign prostatic hyperplasia (BPH) with urinary urgency N40.1; R39.15 Elevated PSA R97.20 CPT Codes Post Residual Void - PVR CPT Code: 09418-[id number] Void Residual by ultrasound ([id number])
== END 2023-03-24 12:11 | disposition home or self-care (01) ==
PROVIDERS: PCP Family Medicine; Visit Provider Urology
DX: N40.1 Benign prostatic hyperplasia with lower urinary tract symptoms (principal); R39.15 Urgency of urination; R97.20 Elevated prostate specific antigen [PSA]
CPT/HCPCS: 99213

== ENCOUNTER → 2023-03-24 11:03 | Outpatient (BNVA) | payer OTHER, SELFPAY | PROVIDERS: PCP Family Medicine; Visit Provider Urology | DX: N40.1 Benign prostatic hyperplasia with lower urinary tract symptoms (principal); R39.15 Urgency of urination; R97.20 Elevated prostate specific antigen [PSA] | CPT/HCPCS: 51798; 99212 ==

== ENCOUNTER 2023-04-05 08:21 | Outpatient (REF) | payer OTHER, SELFPAY ==
[2023-04-05 11:51] LABS: Estimated Average Glucose 128 mg/dL; Hemoglobin A1C 173.6226 umol/L; Hemoglobin A1c % 6.1 % (<6.0)
[2023-04-05 12:16] LABS: Alanine Aminotransferase 29 U/L (0-40); Alkaline Phosphatase 76 U/L (39-117); Anion Gap 14 (12-20); Aspartate Amino Transferase 25 U/L (5-37); Bilirubin Total 0.5 mg/dL (0.0-1.0); Blood Urea Nitrogen 15 mg/dL (9-16); Carbon Dioxide 26 mmol/L (22-29); Chloride 104 mmol/L (96-108); Cholesterol 191 mg/dL (<200); Estimated Glomerular Filt Rate 55; Glucose Random 121 mg/dL (60-115); HDL Cholesterol 30 mg/dL (>40); Potassium 4.2 mmol/L (3.3-5.1); Sodium 140 mmol/L (135-145); Total Protein 7.2 g/dL (6.5-8.0); Triglycerides 609 mg/dL (<150)
[2023-04-05 16:10] LABS: Reflex LDLD? Yes
[2023-04-07 07:13] LABS: LDL Cholesterol Direct 63 mg/dL (<100)
== END 2023-04-05 08:22 | disposition home or self-care (01) ==
LOC: HO.HHCL 08:21
PROVIDERS: Visit Provider Family Medicine
DX: R00.1 Bradycardia, unspecified (principal); R73.03 Prediabetes; E78.5 Hyperlipidemia, unspecified
CPT/HCPCS: 36415; 80053; 80061; 83036; 83721; 84443

== ENCOUNTER 2023-04-13 08:20 | Outpatient (REF) | payer OTHER, SELFPAY ==
--- NOTE | ~2023-04-13 | CT_ITS ---
EXAMINATION: CT CHEST WITHOUT CONTRAST CLINICAL INFORMATION: Pulmonary nodule COMPARISON: CT scan of chest on 02/10/2022 TECHNIQUE: Multidetector volumetric CT imaging of the chest was done. Axial MIP volume rendering provided. Sagittal and coronal reformatted images were obtained. This CT examination was performed using dose optimization techniques as appropriate, variously including the following: *Automated exposure control *Adjustment of mA and/or kV according to patient size (this includes techniques or standardized protocols for targeted exams where dose is matched to indication/reason for exam; i.e. extremities or head) *Use of iterative reconstruction technique DLP: 167 mGy-cm FINDINGS: LUNGS: Unchanged prominent right apical fibrotic scars are present. Persistent centrilobular emphysema and multiple prominent subpleural bilateral upper lobes paraseptal emphysematous bullae are present. The previously reported 4 mm lateral right upper lobe subpleural nodule is visualized to be part of the subpleural fibrotic scars in right upper lobe on the current examination is that of discrete nodule. -Nodule #1 (Series 5, image 106): 3.1 mm solid nodule, anterior lateral right upper lobe apical segment, previously 3.0 mm. PLEURA: No pleural effusion or pneumothorax is seen. PERICARDIUM: No pericardial effusion is seen. MEDIASTINUM AND SADI: Inadequate evaluation of the mediastinal and hilar lymph nodes due to absence of IV contrast filling the surrounding blood vessels. TRACHEOBRONCHIAL TREE: Trachea and bilateral mainstem bronchi are patent. There is persistent dilatation of the trachea and bilateral mainstem bronchi. THORACIC AORTA: The thoracic aorta is normal in size and smoothly patent. CORONARY ARTERY CALCIFICATIONS: Moderate PULMONARY ARTERIES: The main pulmonary arteries appear to be normal in size. CHEST WALL AND LOWER NECK: The subcutaneous and muscular chest wall are intact with no focal lesion. No abnormal mass lesion could be seen in the visualized lower neck. BONES: There is exaggerated thoracic kyphosis. No fracture or dislocation. No focal bone lesion diagnostic of metastatic disease could be seen in the thorax. VISUALIZED UPPER ABDOMEN: Bilateral adrenal glands are not enlarged. Persistent medium-sized retrocardiac hiatus hernia is present. Persistent large calcified gallstones are present, up to 1.5 cm in diameter, series 3 image #62. Left upper pole renal cortical simple cyst is seen measuring 3.0 cm in diameter, mean attenuation of -5 Hounsfield units, for which no follow up imaging is recommended. CT/CT chest wo IV con IMPRESSION: 1. Previously identified 4 mm lateral right upper lobe subpleural nodule is visualized to be part of the subpleural fibrotic scars in right upper lobe. 2. Persistent stable centrilobular emphysema and multiple prominent subpleural bilateral upper lobes paraseptal emphysematous bullae. 3. Unchanged right upper lobe micronodule. 4. Persistent medium-sized retrocardiac hiatus hernia. 5. Unchanged marked Cholelithiasis. 6. Unchanged Left upper pole renal cortical simple cyst, for which no follow up imaging is recommended. Fleischner guidelines were followed.
== END 2023-04-13 08:21 | disposition home or self-care (01) ==
LOC: HO.CT 08:20
PROVIDERS: PCP Family Medicine; Visit Provider Internal Medicine Pulmonary Disease
DX: R91.8 Other nonspecific abnormal finding of lung field (principal); J43.2 Centrilobular emphysema
CPT/HCPCS: 71250

== ENCOUNTER 2023-04-20 08:21 | Outpatient (REF) | payer OTHER, SELFPAY ==
--- NOTE | ~2023-04-20 | MM_ITS ---
EXAMINATION: BONE DENSITOMETRY CLINICAL INDICATION: Osteoporosis. Prednisone use for COPD. COMPARISON: Baseline BD dated 12/09/2010. TECHNIQUE: Using a [employer] DXA System (software version: 13.1) manufactured by [employer], dual-energy x-ray absorptiometry was performed of the . The images are of good technical quality. Summary results are attached. FINDINGS: LEFT FEMUR, NECK: Current: BMD 0.785 g/cm2, Z-score -0.7, T-score -2.2, osteopenia. Baseline: BMD 0.952 g/cm2. LEFT FEMUR, TOTAL: Current: BMD 0.887 g/cm2, Z-score -0.3, T-score -1.5, osteopenia, 11.0% decrease from baseline (<5% change is not significant). Baseline: BMD 0.997 g/cm2. AP SPINE L1-L4: Current: BMD 0.907 g/cm2, Z-score -2.0, T-score -2.6, osteoporosis, 4.1% increase from baseline (<5% change is not significant). Baseline: BMD 0.871 g/cm2. IDENTIFIED RISK FACTORS: Glucocorticoids (chronic), tobacco use (current smoker). HISTORY OF FRACTURE: None listed. MEDICATIONS: Calcium, vitamin D. MM/XR DEXA axial skeleton IMPRESSION: 1. DIAGNOSIS: Osteoporosis based on the lowest T-score value of -2.6 in the lumbar spine applying World Health Organization criteria. 2. 10-YEAR FRACTURE RISK PREDICTION, FRAX: According to the guidelines, FRAX calculation should only be performed on patients in the osteopenia bone density category. Therefore, FRAX was not performed on this patient. 3. Treatment Recommendations: NOF guidelines recommend consideration for treatment in postmenopausal women and men age 50 and older presenting with the following: -A hip or vertebral (clinical or morphometric) fracture. -T-score less than or equal to -2.5 at the femoral neck or spine after appropriate evaluation to exclude secondary causes. -Low bone mass at the hip or spine and a 10-year fracture probability by FRAX of greater than or equal to 3% for hip fracture or greater than or equal to 20% for major osteoporotic fracture based on the [place] adapted WHO algorithm. 4. Other Recommendations: All treatment decisions require clinical judgment and consideration of individual patient factors, including patient preferences, comorbidities, previous drug use, risk factors not captured in the FRAX model (e.g. frailty, falls, vitamin D deficiency, increased bone turnover, interval significant decline in bone density) and possible under or overestimation of fracture risk by FRAX. Additional medical evaluation for secondary cause of low bone mineral density may be appropriate. FUTURE SCAN RECOMMENDATION: People with diagnosed cases of osteoporosis or at high risk for fracture should have regular bone mineral density tests. For patients eligible for Medicare, routine testing is allowed once every 2 years. The testing frequency can be increased to one year for patients who have rapidly progressing disease, those who are receiving or discontinuing medical therapy to restore bone mass, or have additional risk factors.
== END 2023-04-20 08:22 | disposition home or self-care (01) ==
LOC: HO.MAMMO 08:21
PROVIDERS: PCP Family Medicine; Visit Provider Family Medicine
DX: Z13.820 Encounter for screening for osteoporosis (principal); M81.0 Age-related osteoporosis without current pathological fracture
CPT/HCPCS: 77080

== ENCOUNTER → 2023-05-25 09:20 | Outpatient (BNVA) | payer OTHER, SELFPAY | PROVIDERS: PCP Family Medicine; Visit Provider Nurse Practitioner ==

== ENCOUNTER 2023-07-16 14:17 | Emergency (ER) | payer OTHER, SELFPAY ==
[2023-07-16] VITALS (7 sets, daily range): BP systolic 106–152; BP diastolic 58–92; PULSE 70–83; RESP 16–19; TEMP 35.8–36.1; O2SAT 94–98; BMI 26.6
--- NOTE | ~2023-07-16 | XR_ITS ---
EXAMINATION: Bilateral knee x-ray CLINICAL INFORMATION: Fall COMPARISON: None. TECHNIQUE: 4 views each knee FINDINGS: Right: Bone alignment is normal. No fracture or dislocation. Normal joint spaces. Osteophyte at the quadriceps tendon insertion to the patella. No joint effusion. Left: Bone alignment is normal. No fracture or dislocation. Normal joint spaces. No joint effusion. Osteophyte at the quadriceps tendon insertion to the patella. XR/XR knee RT 4V IMPRESSION: No fracture or dislocation.
--- NOTE | ~2023-07-16 | XR_ITS ---
EXAMINATION: XR HAND, RIGHT CLINICAL INFORMATION: Fall COMPARISON: None available. TECHNIQUE: PA, lateral, and oblique views of the right hand. FINDINGS: Bone alignment is normal. No acute fracture or dislocation. Normal joint spaces. Osteopenia. Normal soft tissues. XR/XR hand RT min 3V IMPRESSION: No acute fracture or dislocation.
--- NOTE | ~2023-07-16 | XR_ITS ---
EXAMINATION: XR WRIST, LEFT CLINICAL INFORMATION: Fall COMPARISON: None available. TECHNIQUE: PA, lateral, and oblique views of the left wrist. FINDINGS: Bone alignment is normal. No fracture or dislocation. Normal joint spaces. Normal soft tissues. XR/XR wrist LT min 3V IMPRESSION: No fracture or dislocation.
--- NOTE | ~2023-07-16 | XR_ITS ---
EXAMINATION: Bilateral knee x-ray CLINICAL INFORMATION: Fall COMPARISON: None. TECHNIQUE: 4 views each knee FINDINGS: Right: Bone alignment is normal. No fracture or dislocation. Normal joint spaces. Osteophyte at the quadriceps tendon insertion to the patella. No joint effusion. Left: Bone alignment is normal. No fracture or dislocation. Normal joint spaces. No joint effusion. Osteophyte at the quadriceps tendon insertion to the patella. XR/XR knee LT 4V IMPRESSION: No fracture or dislocation.
--- NOTE | 2023-07-16 14:54 | PC.NURSE ---
Pt reports he was walking on sidewalk outside when he tripped and fell forward. Pt reports he landed on his hands and knees, denies any head hit, LOC or neck pain. Bystander saw pt fall and called for EMS. Pt could not collar pt with hard collar, used soft collar. Pt is alert and oriented, breathing even and unlabored, skin WNL. VSS. Pt noted to have abrasions to bilat hands and left knee, minor bleeding. No obvious deformities noted. Head and face neg for any obvious injury or trauma. CSMsX4 intact. Pt denies CP, SOB, dizziness, changes in vision or nausea.
--- NOTE | 2023-07-16 14:56 | ED.FALL ---
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 Has pain and abrasions to both knees and hands. 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) Fall from: standing Fall witnessed: no Place fall occurred: street Loss of consciousness: none Prolonged down time: no Symptoms prior to fall: none Context: tripped/slipped Location of injury: other (bilateral hands and knees) Location of injury - extremities: right: hand and knee Severity: mild Associated symptoms (after fall): denies Related Data Home Medications ?Medication ?Instructions ?Recorded ?Confirmed atorvastatin 20 mg tablet 20 mg PO DAILY 12/14/19 03/24/23 cyanocobalamin (vitamin B-12) 1,000 mcg PO DAILY 12/14/19 03/24/23 1,000 mcg tablet docusate sodium 100 mg capsule 100 mg PO BID 12/14/19 03/24/23 multivitamin 1 tab PO DAILY 12/14/19 03/24/23 omeprazole 40 mg capsule,delayed 40 mg PO DAILY 12/14/19 03/24/23 release quetiapine 50 mg tablet 50 mg PO BID@0900,1700 12/14/19 03/24/23 ascorbic acid (vitamin C) 500 mg 500 mg PO BID 11/20/20 03/24/23 tablet (Vitamin C) cholecalciferol (vitamin D3) 50 50 mcg PO DAILY 11/20/20 03/24/23 mcg (2,000 unit) tablet ferrous sulfate 325 mg (65 mg 325 mg PO DAILY 11/20/20 03/24/23 iron) tablet (FeroSul) sacubitril 49 mg-valsartan 51 mg 1 tab PO BID 07/30/21 03/24/23 tablet (Entresto) furosemide 20 mg tablet 20 mg PO DAILY 09/20/22 03/24/23 metoprolol succinate 25 mg 25 mg PO QAM 09/20/22 03/24/23 tablet,extended release 24 hr omega-3 acid ethyl esters 1 gram 1 cap PO BID 09/20/22 03/24/23 capsule trazodone 50 mg tablet 50 mg PO BEDTIME 09/20/22 03/24/23 ascorbic acid (vitamin C) 250 mg 250 mg PO DAILY 03/24/23 03/24/23 tablet nicotine 7 mg/24 hr daily transdermal DAILY 03/24/23 03/24/23 transdermal patch Previous Rx's ?Medication ?Instructions ?Recorded theophylline 400 mg 400 mg PO DAILY 30 days #30 tabs 01/02/23 tablet,extended release 24 hr finasteride 5 mg tablet 5 mg PO DAILY 90 days #90 tabs 03/24/23 betamethasone dipropionate 0.05 % 1 appl topical BID #15 grams 03/28/23 topical ointment tamsulosin 0.4 mg capsule 0.4 mg PO DAILY 90 days #90 caps 04/05/23 bisacodyl 5 mg tablet,delayed 10 mg (2 x 5 mg) PO BEDTIME 2 days 05/25/23 release (Dulcolax (bisacodyl)) #4 tabs peg 3350-electrolytes 236 240 ml PO Q10M 1 day #4,000 mL 05/25/23 gram-22.74 gram-6.74 gram-5.86 gram solution (Golytely) Allergies Allergy/AdvReac Type Severity Reaction Status Date / Time No Known Allergies Allergy Verified 07/16/23 14:49 Review of Systems Review of Systems: Constitutional : No Fever, No Chills ENT/Mouth : No Ear Pain, No Hoarseness, No sore throat Eyes: No Eye Pain, No Swelling, No Redness, No Foreign Body Cardiovascular : No Chest Pain, No SOB Respiratory : No Cough, No Dyspnea Gastrointestinal : No Nausea, No Vomiting, No Diarrhea, No abdominal Pain Genitourinary : No Dysuria, No Hematuria Musculoskeletal : positive joint pain, No Myalgias, No Joint Swelling Skin : No Skin lacerations, No rash, pos abrasions Neuro : No Weakness, No Numbness, No Loss of Consciousness, No Dizziness, No Headache Psych : No Anxiety/Panic, No Depression Heme/Lymph: no easy bruising, no Lymphadenopathy Endocrine : No Polyuria, No Polydipsia All other systems reviewed and are negative [facility] Past Medical History Attestation statement: The following information was validated with the patient. Source: old records reviewed Medical History Hiatal hernia Opioid dependence, uncomplicated Tobacco use disorder Lung nodules COPD (chronic obstructive pulmonary disease) Undifferentiated schizophrenia Transient alteration of awareness ST segment depression Dizziness Memory impairment Chronic anemia Substance abuse Gallstones Smoker Depression Gastritis Esophagitis Asthma GERD (gastroesophageal reflux disease) HTN (hypertension) Surgical History History of esophagogastroduodenoscopy (EGD) Hx of colonoscopy History of prostate biopsy Family History Family History Father No problems noted. Mother No problems noted. 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 Housing: House Are you a primary healthcare corporate account director to a significant other at home: No Do you presently have visiting nurse or other home services: Yes (ROAD CLEANER) Alcohol intake: never Patient Tobacco Use Status: Current everyday Tobacco user Tobacco use type: Cigarette Cigarettes Per Day: 4 Smoked in Last 30 Days: No Second Hand Smoke Exposure: No Use of substances other than those prescribed or required for medical reasons: No Substance Use Type: Heroin Advance Directives: No Advance Directives Information Provided: No Do you have a plan to hurt others: No Plan service: No Current occupational status: unemployed and disabled Physical Exam Vital Signs: Vital Signs: Last Vital Signs Temp 96.7 F L 07/16/23 15:52 Pulse 76 07/16/23 15:38 Resp 16 07/16/23 15:38 BP 106/66 07/16/23 15:38 Pulse Ox 98 07/16/23 15:38 O2 Del Method Room Air 07/16/23 15:38 BMI result Body Mass Index 26.6 Appearance: Alert. Oriented X3. No acute distress. Eyes: Pupils equal, round and reactive to light. ENT: Pharynx normal. atraumatic Neck: Normal inspection. Neck supple. no midline CVS: Normal heart rate and rhythm. Pulses normal. Respiratory: No respiratory distress. Breath sounds normal. Abdomen: Soft and nontender. Skin: Skin warm and dry. Normal skin color. Normal skin turgor. Extremities: No lower extremity edema. R knee and L knee mild abrasions and patella ttp no effusion distal NV intact, both hands mild ttp and abrasion R thenar eminence Neuro: Oriented X 3. No motor deficit. No sensory deficit. Course Course Course Narrative: signed out to Dr. Porter pending xrays Medical Decision Making Medical Decision Making MDM Narrative: 83 yo male with PMH PVD, schizophrenia, prolonged qt, BPH, COPD, GERD, anemia, not on thinners here with c/o mechanical fall onto hands and knees at this time will need xrays of both hands and knees no head strike or neck pain GCS 15. Differential Diagnosis Differential Diagnoses: The differential diagnosis associated with the presentation includes sprain, strain, abrasion, fracture no head strike neck pain GCS 15 fell on hands and knees not on thinners doubt CT head/cspine injury Independent Interpretation I performed an independent interpretation of an: Plain X-Ray Independent Historian Clinical information obtained from an independent historian. History obtained from or confirmed by: EMS and Other External Record Review External record reviewed: Inpatient record Discharge Plan Discharge Clinical Impression: Abrasion hand, Fall Patient Disposition: Still a Patient Instructions: Abrasion (ED), Fall Prevention (ED) Additional Instructions: monitor abrasion for redness, swelling, yellow drainage, fevers. Prescriptions: No Action theophylline 400 mg tablet extended release 24 hr 400 mg PO DAILY 30 Days Qty: 30 6RF betamethasone dipropionate 0.05 % ointment 1 appl topical BID Qty: 15 0RF Rx Instructions: Thin coat 2 times per day tamsulosin 0.4 mg capsule 0.4 mg PO DAILY 90 Days Qty: 90 1RF quetiapine 50 mg tablet 50 mg PO BID@0900,1700 omeprazole 40 mg capsule,delayed release(DR/EC) 40 mg PO DAILY cyanocobalamin (vitamin B-12) 1,000 mcg tablet 1,000 mcg PO DAILY multivitamin Tablet 1 tab PO DAILY docusate sodium 100 mg capsule 100 mg PO BID atorvastatin 20 mg tablet 20 mg PO DAILY cholecalciferol (vitamin D3) 50 mcg (2,000 unit) tablet 50 mcg PO DAILY ferrous sulfate [FeroSul] 325 mg (65 mg iron) tablet 325 mg PO DAILY ascorbic acid (vitamin C) [Vitamin C] 500 mg tablet 500 mg PO BID Entresto 49-51 mg tablet 1 tab PO BID furosemide 20 mg tablet 20 mg PO DAILY trazodone 50 mg tablet 50 mg PO BEDTIME omega-3 acid ethyl esters 1 gram capsule 1 cap PO BID metoprolol succinate 25 mg tablet extended release 24 hr 25 mg PO QAM finasteride 5 mg tablet 5 mg PO DAILY 90 Days Qty: 90 1RF nicotine 7 mg/24 hr patch 24 hour transdermal DAILY ascorbic acid (vitamin C) 250 mg tablet 250 mg PO DAILY peg 3350-electrolytes [Golytely] 236-22.74-6.74 -5.86 gram recon soln 240 ml PO Q10M 1 Days Qty: 4000 0RF Rx Instructions: until fecal effluent is clear; do not exceed a total volume of 2,000 mL bisacodyl [Dulcolax (bisacodyl)] 5 mg tablet,delayed release (DR/EC) 10 mg PO BEDTIME 2 Days Qty: 4 0RF Print Language: Swiss
--- NOTE | 2023-07-16 15:52 | MHC.EDTECH ---
Pt given 3 warm blankets, cleaned, and changed
[2023-07-16] MEDS: Ketorolac Tromethamine 30 MG/ML VIAL IM (17:05)
== END 2023-07-16 18:57 | disposition still patient (30) ==
PROVIDERS: Emergency Provider Emergency Medicine; PCP Family Medicine
DX: S60.512A Abrasion of left hand, initial encounter (principal); S60.511A Abrasion of right hand, initial encounter; S80.212A Abrasion, left knee, initial encounter; S80.211A Abrasion, right knee, initial encounter; I10 Essential (primary) hypertension; J44.9 Chronic obstructive pulmonary disease, unspecified; W01.0XXA Fall on same level from slipping, tripping and stumbling without subsequent striking against object, initial encounter; Y93.9 Activity, unspecified; Y92.480 Sidewalk as the place of occurrence of the external cause; Y99.9 Unspecified external cause status
CPT/HCPCS: 73110; 73130; 73564; 96372; 99284; J1885

== ENCOUNTER 2023-08-09 09:49 | Outpatient (REF) | payer OTHER, SELFPAY ==
[2023-08-09 12:13] LABS: Cholesterol 186 mg/dL (<200); HDL Cholesterol 33 mg/dL (>40); Triglycerides 442 mg/dL (<150)
[2023-08-09 12:48] LABS: Reflex LDLD? Yes
[2023-08-11 09:58] LABS: LDL Cholesterol Direct 80 mg/dL (<100)
== END 2023-08-09 09:50 | disposition home or self-care (01) ==
LOC: HO.HHCL 09:49
PROVIDERS: Visit Provider Family Medicine
DX: E78.5 Hyperlipidemia, unspecified (principal)
CPT/HCPCS: 36415; 80061; 83721

== ENCOUNTER 2023-09-08 14:36 | Outpatient (REF) | payer OTHER, SELFPAY ==
--- NOTE | ~2023-09-08 | CT_ITS ---
EXAMINATION: CT of the left forearm without contrast INDICATION: PAIN LT FOREARM COMPARISON: None TECHNIQUE: Multidetector volumetric imaging was obtained through the left forearm without contrast. Multiplanar reformatted images in coronal and sagittal orientations were submitted. This CT examination was performed using dose optimization techniques as appropriate, variously including the following: *Automated exposure control *Adjustment of mA and/or kV according to patient size (this includes techniques or standardized protocols for targeted exams where dose is matched to indication/reason for exam; i.e. extremities or head) *Use of iterative reconstruction technique DLP: 243 mGy-cm FINDINGS: There is a comminuted intra-articular distal radial fracture with a dominant transverse component extending through the metaphysis along the physeal scar as well as an oblique sagittal component extending from Mikey's tubercle to the ulnar cortex of the distal radius at the distal radioulnar joint. There is no significant displacement. Early osseous bridging is evident along the volar and dorsal cortices. No significant articular cortical step-off. No additional fractures are identified. The ulnar styloid is intact. Proximal radius and ulna are intact. No elbow joint effusion. Carpal bones appear intact and appropriately aligned. There is subtle cortical irregularity at the ulnar margin of the lunate which could be due to chronic ulnocarpal abutment given the relatively narrow distance between the distal ulna and lunate. Slight positive ulnar variance (2 mm). Muscles and tendons are unremarkable. No appreciable tears or acute soft tissue abnormalities. CT/CT forearm LT wo IV con IMPRESSION: Healing nondisplaced intra-articular distal radial fracture with early osseous bridging.
== END 2023-09-08 14:37 | disposition home or self-care (01) ==
LOC: HO.CT 14:36
PROVIDERS: PCP Family Medicine; Visit Provider Family Medicine
DX: M79.632 Pain in left forearm (principal); Z91.81 History of falling
CPT/HCPCS: 73200

== ENCOUNTER 2023-10-23 09:43 | Outpatient (REF) | payer OTHER, SELFPAY ==
[2023-10-23 12:16] LABS: PSA,Total (Free>4and<10) 16.13 ng/mL (0.00-4.00)
== END 2023-10-23 09:44 | disposition home or self-care (01) ==
LOC: HO.LAB 09:43
PROVIDERS: PCP Family Medicine; Visit Provider Urology
DX: R97.20 Elevated prostate specific antigen [PSA] (principal); Z12.5 Encounter for screening for malignant neoplasm of prostate
CPT/HCPCS: 36415; 84153

== ENCOUNTER 2023-11-10 09:36 | Outpatient (REF) | payer OTHER, SELFPAY | END 2023-11-10 09:37 | disposition home or self-care (01) | LOC: HO.HOSX 09:36 | PROVIDERS: PCP Family Medicine; Visit Provider Physician Assistant | DX: Z13.89 Encounter for screening for other disorder (principal) | CPT/HCPCS: 99202 ==

== ENCOUNTER 2023-11-10 09:36 | Outpatient (AMB) | payer OTHER, SELFPAY ==
--- NOTE | 2023-11-10 09:44 | MHC.OFFVIS ---
Vital Signs 11/10/23 09:52 Height 5 ft 3 in Weight 180 lb BMI 31.9 Handedness Left Intake Visit Reasons: New Pt - left hand pain Intake Note: Joseph is a 83 year old left hand dominant male who presents today as a new patient for a evaluation of his left hand pain. Hx of frequent falls. Patient reports he had a fall about 2 months ago and he had a fracture. He mentions that he is having sharp pain in his whole hand. Practice Business Asst Services: Practice Business Asst Present (Ernesto ([id number])) Allergies No Known Allergies Allergy (Verified 11/10/23 09:49) HPI HPI New Pt - left hand pain: Details: 83-year-old left hand dominant male who presents in the office today, as a new patient, for an evaluation of left upper extremity pain. The patient was seen by his PCP on 08/09/23 for an ED follow-up status post a trip and fall on 07/16/23 which caused pain and abrasions to his bilateral hands and knees. ? ? While in the office today, the patient reports having left hand pain. He also reports a history of frequent falls. He claims two months ago he fell and caused a fracture in the left upper extremity. He describes his pain as sharp and states it is throughout the entire left hand. ? [facility] Medical History Hiatal hernia Opioid dependence, uncomplicated Tobacco use disorder Lung nodules COPD (chronic obstructive pulmonary disease) Undifferentiated schizophrenia Transient alteration of awareness ST segment depression Dizziness Memory impairment Chronic anemia Substance abuse Gallstones Smoker Depression Gastritis Esophagitis Asthma GERD (gastroesophageal reflux disease) HTN (hypertension) Surgical History History of esophagogastroduodenoscopy (EGD) Hx of colonoscopy History of prostate biopsy Family History Father No problems noted. Mother No problems noted. 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 Housing: House Are you a primary day care assistant to a significant other at home: No Do you presently have visiting nurse or other home services: Yes (BUFFING LINE SET UP WORKER) Alcohol intake: never Patient Tobacco Use Status: Current everyday Tobacco user Tobacco use type: Cigarette Cigarettes Per Day: 4 Second Hand Smoke Exposure: No Substance Use Type: Heroin service: No Current occupational status: unemployed and disabled Review of Systems Const All systems reviewed & are unremarkable except as noted in HPI and below Physical Exam Vital Signs: BMI result Body Mass Index 31.9 Const General: cooperative and no acute distress Orientation/consciousness: patient oriented x3 Resp Effort & Inspection: normal respiratory effort and able to speak in complete sentences Cardio Peripheral pulses: Peripheral pulses 2+ throughout Skin General skin exam: no rashes or lesions noted Neuro General: patient oriented x3 Extrem Other: Left hand: Normal to inspection. No ecchymosis, erythema, or edema. Able to perform full finger flexion, extension, abduction, adduction, finger cross, okay sign, and thumbs up without deficit. Able to make a closed fist. Sensation intact. Capillary refill is brisk. Radial pulse intact.? ? ? Right elbow: Normal to inspection. No ecchymosis, erythema, or edema. No tenderness to palpation over the olecranon. No tenderness to the medial or lateral epicondyle. NVI.? Assessment & Plan Assessment & Plan (1) Fracture of left distal radius: Code(s): S52.502A - Unspecified fracture of the lower end of left radius, initial encounter for closed fracture Category: Medical (2) Contusion of right elbow: Code(s): S50.01XA - Contusion of right elbow, initial encounter Category: Medical Plan Mr. Hicks is an 83-year-old left hand dominant male who presents in the office today, as a new patient, for an evaluation of left upper extremity pain. The patient was seen by his PCP on 08/09/23 for an ED follow-up status post a trip and fall on 07/16/23 which caused pain and abrasions to his bilateral hands and knees. ? ? While in the office today, the patient reports having left hand pain. He also reports a history of frequent falls. He claims two months ago he fell and caused a fracture in the left upper extremity. He describes his pain as sharp and states it is throughout the entire left hand.? ? Left hand: The patient will be placed in a Velcro wrist splint, off the shelf. An order was placed for the patient to attend occupational therapy to work on ROM.? ? Right elbow: No additional orthopedic intervention at this time. ? ? Follow-up will be in four weeks, or sooner if needed. ? ? X-rays of the left hand which were obtained while in the office today and were reviewed by me, Mi Butcher PA-C, revealed routine healing of a left distal radius fracture. ? ? X-rays of the right elbow which were obtained while in the office today and were reviewed by me, Mi Butcher PA-C, revealed no acute fracture of dislocation. ? ? CT of the left forearm, obtained on 09/08/23, revealed: Healing nondisplaced intra-articular distal radial fracture with early osseous bridging.? ? X-rays of the left hand/wrist, obtained on 07/16/23, revealed: No acute fracture or dislocation. ? Orders: Orders XR hand LT min 3V Today M79.643 - Pain in unspecified hand XR elbow RT min 3V Today M25.529 - Pain in unspecified elbow Patient Instructions: Scribed by Liv Duarte clinical laboratory medical director, for Mi Butcher PA-C on 11/10/2023 at 9:51 am, EST.? Coding Level of Care Code New Pt Level 4 (16074) Complex EM visit Add On G2211 Diagnoses Fracture of left distal radius S52.502A Contusion of right elbow S50.01XA
[2023-11-10 09:52] VITALS: BMI 31.9
== END 2023-11-10 10:10 | disposition home or self-care (01) ==
PROVIDERS: PCP Family Medicine; Visit Provider Physician Assistant
DX: S52.502A Unspecified fracture of the lower end of left radius, initial encounter for closed fracture (principal); S50.01XA Contusion of right elbow, initial encounter
CPT/HCPCS: 99203; G2211

== ENCOUNTER 2023-11-10 10:18 | Outpatient (REF) | payer OTHER, SELFPAY ==
--- NOTE | ~2023-11-10 | XR_ITS ---
EXAMINATION: XR ELBOW, RIGHT CLINICAL INFORMATION: Pain in the elbow. COMPARISON: None available. TECHNIQUE: AP, lateral, and oblique views of the right elbow. FINDINGS: Bones are osteopenic. No joint effusion. Joint spaces appear well-preserved. Soft tissues are unremarkable. No fractures. Alignment is appropriate. XR/XR elbow RT min 3V IMPRESSION: No acute osseous findings at the right elbow. Osteopenia. Electronically signed by: Vikas Mar MD 11/16/2023 05:05 PM EDT
--- NOTE | ~2023-11-10 | XR_ITS ---
EXAMINATION: XR HAND, LEFT CLINICAL INFORMATION: Pain, unspecified hand. COMPARISON: CT dated 09/08/2003 TECHNIQUE: PA, lateral, and oblique views of the left hand. FINDINGS: Again seen is a healing nondisplaced distal radial fracture characterized primarily by sclerosis a transverse band of sclerosis in the distal radius. Alignment is unchanged as compared to prior. Osseous bridging has progressed. 3 mm of positive ulnar variance. There is a degenerative angulation between the lunate and the distal ulna. 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 No erosions. No chondrocalcinosis. XR/XR hand LT min 3V IMPRESSION: 1. Healing nondisplaced distal radial fracture. 2. 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 3. Positive ulnar variance with degenerative angulation between the lunate and distal ulna as can be seen with ulnocarpal abutment. Electronically signed by: Vikas Mar MD 11/16/2023 05:07 PM EDT
== END 2023-11-10 10:19 | disposition home or self-care (01) ==
LOC: HO.XRAY 10:18
PROVIDERS: PCP Family Medicine; Visit Provider Physician Assistant
DX: M25.521 Pain in right elbow (principal); M79.642 Pain in left hand
CPT/HCPCS: 73080; 73130; 99202

== ENCOUNTER 2023-12-13 11:05 | Outpatient (AMB) | payer OTHER, SELFPAY ==
--- NOTE | 2023-12-13 11:10 | A.OFFVIS_ITS ---
Intake Visit Reasons: 6M Follow Up-PSA/PVR(Set) Intake Note: Patient is Present for 6M Follow Up PSA/PVR Urology Medication: Finasteride,VITAMIN B12, TAMSULOSIN Antibiotic Allergies: None Blood Thinners: Aspirin PVR: 17ML'S TODAY'S PVR:10 ML'S Office Clin Asst Required: No Allergies No Known Allergies Allergy (Verified 12/13/23 11:12) HPI Comments Details: Joseph is a pleasant male. He is a patient of Dr. Simpson. He is seen for the following urologic conditions - BPH - elevated PSA Italian translation provided in office by qualified medical field representative Prior targeted prostate biopsy with no evidence of disease Continues with elevated PSA Continue to follow Q 6 months Effective urination Continue finasteride Lower urinary tract symptoms Longstanding Primary complaint is nocturia with high elevated residual Responded well to tamsulosin and finasteride PSA - 05/01 6.0, 05/03 8.6, 05/04 11, 04/05 21, 11/03 16 Prior biopsy performed for PSA 8 which was negative 2016 chronic inflammation - 09/02 MRI targeted biopsy [facility] 07/02 MRI cm left lateral posterior PI-RADS 4 lesion 6 month follow-up PSA [facility] Medical History Hiatal hernia Opioid dependence, uncomplicated Tobacco use disorder Lung nodules COPD (chronic obstructive pulmonary disease) Undifferentiated schizophrenia Transient alteration of awareness ST segment depression Dizziness Memory impairment Chronic anemia Substance abuse Gallstones Smoker Depression Gastritis Esophagitis Asthma GERD (gastroesophageal reflux disease) HTN (hypertension) Surgical History History of esophagogastroduodenoscopy (EGD) Hx of colonoscopy History of prostate biopsy Family History Father No problems noted. Mother No problems noted. 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/PRINCIPAL AUTOMATION ENGINEER Housing: House Are you a primary acute care nurse practitioner to a significant other at home: No Do you presently have visiting nurse or other home services: Yes (PRINCIPAL AUTOMATION ENGINEER) Alcohol intake: never Patient Tobacco Use Status: Current everyday Tobacco user Tobacco use type: Cigarette Cigarettes Per Day: 4 Second Hand Smoke Exposure: No Substance Use Type: Heroin service: No Current occupational status: unemployed and disabled Review of Systems Const Denies chills and Denies fever(s) Card Reports no additional complaints and Denies syncope Resp Denies cough GI Denies abdominal pain and Denies heartburn Reports as per HPI and Denies change in libido Neuro Denies syncope Psych Denies change in libido Endo Denies change in libido Physical Exam Const General: cooperative, healthy appearing, comfortable and no acute distress Orientation/consciousness: patient oriented x3 HEENT Face and sinus: Yes normal facial exam Mouth: moist mucous membranes Neck Neck: Yes normal visual inspection, Yes full ROM and Yes trachea midline Chest Chest palpation & inspection: normal inspection of the chest Resp Effort & Inspection: normal respiratory effort, able to speak in complete sentences and no respiratory distress GI Inspection: Yes normal to inspection Back/Spine/Pelvis Cervical Spine: normal cervical lordosis Thoracic/Lumbar Spine: thoracic and lumbar spine normal to inspection Skin General skin exam: no rashes or lesions noted Neuro General: patient oriented x3, gait normal, tone normal and moves all extremities Extrem General: Yes normal to inspection and Yes capillary refill normal Office Procedures Post Void Residual Post Residual Void Post Void Residual (PVR): 10 [id number]-[id number] Void Residual by ultrasound Results AMB Urinalysis, Automated UA Leukoctes 0 Moustapha/uL Last Edit by FAHAD Soto on 12/13/23 11:54 UA Nitrite Negative Last Edit by FAHAD Soto on 12/13/23 11:54 UA Urobilinogen 0.2 mg/dL Last Edit by FAHAD Soto on 12/13/23 11:5 4 UA Protein 15 mg/dL Last Edit by FAHAD Soto on 12/13/23 11:54 UA pH 7.5 Last Edit by FAHAD Soto on 12/13/23 11:54 UA Blood 0 Joel/uL Last Edit by FAHAD Soto on 12/13/23 11:54 UA Specific [place] 1.015 Last Edit by FAHAD Soto on 12/13/23 11: 54 UA Ketone Negative Last Edit by FAHAD Soto on 12/13/23 11:54 UA Bilirubin 0 mg/dL Last Edit by FAHAD Soto on 12/13/23 11:54 UA Glucose 0 mg/dL Last Edit by FAHAD Soto on 12/13/23 11:54 Results Reviewed Results Reviewed: Laboratory Last Values Urine pH (Auto) 7.5 12/13/23 11:54 Specific [place] (Auto) 1.015 12/13/23 11:54 Urine Protein (Auto) 15 mg/dL 12/13/23 11:54 Glucose (UA)(Auto) 0 mg/dL 12/13/23 11:54 Urine Ketones (Auto) Negative 12/13/23 11:54 Urine Blood (Auto) 0 Joel/uL 12/13/23 11:54 Urine Nitrite (Auto) Negative 12/13/23 11:54 Urine Bilirubin (Auto) 0 mg/dL 12/13/23 11:54 Urine Urobilinogen (Auto) 0.2 mg/dL 12/13/23 11:54 Leukocyte Esterase (Auto) 0 Moustapha/uL 12/13/23 11:54 Assessment & Plan Assessment & Plan (1) Benign prostatic hyperplasia (BPH) with urinary urgency: Code(s): N40.1 - Benign prostatic hyperplasia with lower urinary tract symptoms; R39.15 - Urgency of urination Category: Medical (2) Elevated PSA: Comment: Prior biopsy for PSA 8 NAD Code(s): R97.20 - Elevated prostate specific antigen [PSA] Category: Medical Plan Six-month follow-up PSA Orders: Orders AMB Urinalysis Automated Today Z13.9 - Encounter for screening, unspecified PSA,Total (Free>4and<10) 6 Months N40.1 - Benign prostatic hyperplasia with lower urinary tract symptoms, R39.15 - Urgency of urination Medications: Refilled finasteride 5 mg PO DAILY 90 days 90 tabs 1RF N13.8 - Other obstructive and reflux uropathy, N40.1 - Benign prostatic hyperplasia with lower urinary tract symptoms, R33.9 - Retention of urine, unspecified, R39.15 - Urgency of urination Patient Instructions: Imaging studies, laboratory and physical exam results were discussed and reviewed in detail. No major barriers to patient understanding were identified. An opportunity to ask questions regarding the treatment plan was provided. All questions were answered. The patient expressed understanding and agreement with the above treatment plan. The patient is aware they should contact our office by phone for worsening of their current condition or the appearance of new urologic symptoms. Compliance is encouraged with any medications and followup testing that is ordered. It is a privilege to participate in the urologic care of your patient. If you have any questions or concerns regarding treatment for the above conditions, or other urologic issues, please do not hesitate to contact me. The office telephone contact is [phone]. This note is constructed using voice recognition software. While every effort has been made to ensure accuracy fish and wildlife warden errors may have been included. Yours sincerely, Dr Stevie Molina MD, [facility] - Urology Providers of Expert, Compassionate Care for the Genitourinary System Coding Level of Care Code Est Pt Level 3 (30784) Diagnoses Benign prostatic hyperplasia (BPH) with urinary urgency N40.1; R39.15 Elevated PSA R97.20 CPT Codes Post Residual Void - PVR CPT Code: 66124-Shap Void Residual by ultrasound ([id number])
== END 2023-12-13 12:04 | disposition home or self-care (01) ==
LOC: HO.HUSH 11:05
PROVIDERS: PCP Family Medicine; Visit Provider Urology
DX: N40.1 Benign prostatic hyperplasia with lower urinary tract symptoms (principal); R39.15 Urgency of urination; R97.20 Elevated prostate specific antigen [PSA]; Z13.9 Encounter for screening, unspecified
CPT/HCPCS: 99213

== ENCOUNTER → 2023-12-13 11:05 | Outpatient (BNVA) | payer OTHER, SELFPAY | PROVIDERS: PCP Family Medicine; Visit Provider Urology | DX: N40.1 Benign prostatic hyperplasia with lower urinary tract symptoms (principal); R39.15 Urgency of urination; R97.20 Elevated prostate specific antigen [PSA] | CPT/HCPCS: 51798; 81003; 99212 ==

== ENCOUNTER → 2024-01-24 10:34 | Day surgery (SDC) | payer OTHER, SELFPAY ==
[2024-01-22 11:39] VITALS: BMI 31.7
--- NOTE | 2024-01-23 12:11 | P.CONAN_ITS ---
HPI - Anesthesia Eval Consult details Narrative: 83yo M for Colonoscopy Chart reviewed by Dr Douglass, preop labs ordered [facility] Active Problems Active Problems: All Active Problems Contusion of right elbow (Acute) Fracture of left distal radius (Acute) Heart failure with reduced ejection fraction (Acute) Prolonged QT interval (Acute) Pre-op examination (Acute) Pulmonary fibrosis (Acute) Preop pulmonary/respiratory exam (Acute) COPD exacerbation (Acute) Sessile colonic polyp (Acute) Family history of colon cancer (Acute) Varicose veins of left lower extremity with inflammation (Acute) Elevated PSA (Acute) Dyspnea on exertion (Acute) Varicose veins of right lower extremity with inflammation (Acute) PVD (peripheral vascular disease) (Acute) Schizophrenia (Acute) History of sphincterotomy of sphincter of Oddi (Acute) Colon cancer screening (Acute) Depression (Acute) Benign prostatic hyperplasia (BPH) with urinary urgency (Acute) Lung nodules (Acute) COPD (chronic obstructive pulmonary disease) (Acute) GERD (gastroesophageal reflux disease) (Acute) Chronic anemia (Acute) Substance abuse (Acute) Gallstones (Acute) Smoker (Acute) Past Medical History Medical History (Updated 01/23/24 @ 07:43 by Krystyna Christianson RN) Schizophrenia Hiatal hernia Opioid dependence, uncomplicated Tobacco use disorder Lung nodules COPD (chronic obstructive pulmonary disease) Undifferentiated schizophrenia Transient alteration of awareness ST segment depression Dizziness Memory impairment Chronic anemia Substance abuse Gallstones Smoker Depression Gastritis Esophagitis Asthma GERD (gastroesophageal reflux disease) HTN (hypertension) Family History Family History Father No problems noted. Mother No problems noted. Family history of problems with anesthesia: No Surgical History Surgical History History of esophagogastroduodenoscopy (EGD) Hx of colonoscopy History of prostate biopsy History of Problems with Anesthesia: No Social History 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/EXECUTIVE PERSONAL ASSISTANT Housing: House Are you a primary long term care administrator to a significant other at home: No Do you presently have visiting nurse or other home services: Yes (EXECUTIVE PERSONAL ASSISTANT) Alcohol intake: never Patient Tobacco Use Status: Current everyday Tobacco user Tobacco use type: Cigarette Cigarettes Per Day: 4 Second Hand Smoke Exposure: No Substance Use Type: Heroin service: No Current occupational status: unemployed and disabled Meds Allergies Allergy/AdvReac Type Severity Reaction Status Date / Time No Known Allergies Allergy Verified 12/13/23 11:12 Home Medications ?Medication ?Instructions ?Recorded ?Confirmed ?Last Taken ?Type atorvastatin 20 mg tablet 20 mg PO DAILY 12/14/19 03/24/23 Unknown History cyanocobalamin (vitamin B-12) 1,000 mcg PO DAILY 12/14/19 03/24/23 Unknown History 1,000 mcg tablet docusate sodium 100 mg capsule 100 mg PO BID 12/14/19 03/24/23 Unknown History multivitamin 1 tab PO DAILY 12/14/19 03/24/23 Unknown History omeprazole 40 mg capsule,delayed 40 mg PO DAILY 12/14/19 03/24/23 08/29/22 History release quetiapine 50 mg tablet 50 mg PO BID@0900,1700 12/14/19 03/24/23 08/29/22 History cholecalciferol (vitamin D3) 50 50 mcg PO DAILY 11/20/20 03/24/23 Unknown History mcg (2,000 unit) tablet ferrous sulfate 325 mg (65 mg 325 mg PO DAILY 11/20/20 03/24/23 Unknown History iron) tablet (FeroSul) sacubitril 49 mg-valsartan 51 mg 1 tab PO BID 07/30/21 03/24/23 Unknown History tablet (Entresto) furosemide 20 mg tablet 20 mg PO DAILY 09/20/22 03/24/23 Unknown History metoprolol succinate 25 mg 25 mg PO QAM 09/20/22 03/24/23 Unknown History tablet,extended release 24 hr omega-3 acid ethyl esters 1 gram 1 cap PO BID 09/20/22 03/24/23 Unknown History capsule trazodone 50 mg tablet 50 mg PO BEDTIME 09/20/22 03/24/23 Unknown History ascorbic acid (vitamin C) 250 mg 250 mg PO DAILY 03/24/23 03/24/23 Unknown History tablet nicotine 7 mg/24 hr daily transdermal DAILY 03/24/23 03/24/23 Unknown History transdermal patch alendronate 70 mg tablet 70 mg PO QWEEK 11/10/23 Unknown History Exam Height,Weight and Vital Signs: Height 5 ft 3 in Weight 81.193 kg Assessment and Plan Assessment Anesthesia Assessment: Chart Reviewed Final Anesthetic Review Family History of Problems with Anesthesia: No History of Problems with Anesthesia: No
[2024-01-24 10:42] VITALS: BP 113/71; PULSE 87; RESP 16; TEMP 36.7; O2SAT 95; BMI 32.6
--- NOTE | 2024-01-24 11:38 | PC.NURSE ---
hazardous waste management specialist was at bedside- pt came in reporting he completed the entire prep. states he is still having brown bowel movements with pieces of stool visable. md aware. plan made with patient to stay npo with clear liquid diet and more prep was sent to his pharmacy. pt placed on schedule tomorrow and instructed patient to wait for phone call with time for arrival tomorrow.
== END ==
LOC: HO.SSS 10:35
PROVIDERS: PCP Family Medicine; Visit Provider Internal Medicine Gastroenterology
DX: Z12.11 Encounter for screening for malignant neoplasm of colon (principal); Z53.8 Procedure and treatment not carried out for other reasons; Z80.0 Family history of malignant neoplasm of digestive organs

== ENCOUNTER 2024-02-22 09:41 | Outpatient (REF) | payer OTHER, SELFPAY ==
--- NOTE | 2024-02-22 09:58 | PFT_ITS ---
Indication: ILD Spirometry [FEV1 to FVC 73%; FEV1 2.26 L; FVC 3.08 L. No significant response to bronchodilators noted. Maximum voluntary ventilation 129% predicted] Lung Volumes [Total lung capacity 87% predicted] Diffusion Capacity [DLCO 57% predicted] Comparisons [none] Interpretation [No obstructive nor restrictive ventilatory defects identified. No significant response to bronchodilator. Above normal maximum voluntary ventilation. Lung volumes are within normal limits. The patient does have a moderate diffusion impairment which could be secondary to the underlying parenchymal disease. Clinical correlation warranted.] MTDD
[2024-02-22 10:42] VITALS: PULSE 108; O2SAT 96
== END 2024-02-22 09:42 | disposition home or self-care (01) ==
LOC: HO.RESP 09:41
PROVIDERS: PCP Family Medicine; Visit Provider Internal Medicine Pulmonary Disease
DX: J84.10 Pulmonary fibrosis, unspecified (principal)
CPT/HCPCS: 94010; 94640; 94727; 94729

== ENCOUNTER → 2024-02-22 09:58 | Outpatient (BNV) | payer OTHER, SELFPAY | PROVIDERS: PCP Family Medicine; Visit Provider Hospitalist | DX: J84.10 Pulmonary fibrosis, unspecified (principal) | CPT/HCPCS: 94060; 94727; 94729 ==

== ENCOUNTER 2024-02-29 10:53 | Outpatient (AMB) | payer OTHER, SELFPAY ==
[2024-02-29 10:54] VITALS: BP 122/67; PULSE 93; O2SAT 96; BMI 33.1
--- NOTE | 2024-02-29 10:54 | A.OFFVIS_ITS ---
Vital Signs 02/29/24 10:54 Height 5 ft 3 in Weight 187 lb BMI 33.1 BP 122/67 Blood Pressure Location Rt brachial Position Sitting Pulse 93 Pulse Source Doppler Pulse Oximetry (%) 96 Oxygen Delivery Method Room Air Intake Visit Reasons: Pulmonary fibrosis/ PFT FU Cyber Defense Incident Responder Required: Yes Cyber Defense Incident Responder Name: Giovanna Franklin Raoul Allergies No Known Allergies Allergy (Verified 12/13/23 11:12) HPI HPI Pulmonary fibrosis/ PFT FU: Details: 83-year-old gentleman, former 50+ years smoker, quit 2020, now followed for moderate COPD and bilateral pulmonary nodules.?? He has been using Trelegy, theophylline and albuterol MDI/nebs with good control of his symptoms. He denies recent exacerbations. He did complete his follow-up PFT that shows age- appropriate changes from his prior. [facility] Medical History (Updated 01/23/24 @ 07:43 by Krystyna Christianson RN) Schizophrenia Hiatal hernia Opioid dependence, uncomplicated Tobacco use disorder Lung nodules COPD (chronic obstructive pulmonary disease) Undifferentiated schizophrenia Transient alteration of awareness ST segment depression Dizziness Memory impairment Chronic anemia Substance abuse Gallstones Smoker Depression Gastritis Esophagitis Asthma GERD (gastroesophageal reflux disease) HTN (hypertension) Surgical History History of esophagogastroduodenoscopy (EGD) Hx of colonoscopy History of prostate biopsy Family History Father No problems noted. Mother No problems noted. 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/ONLINE COMMUNICATIONS SPECIALIST Housing: House Are you a primary director of medicare to a significant other at home: No Do you presently have visiting nurse or other home services: No Alcohol intake: never Patient Tobacco Use Status: Never used Tobacco Tobacco use type: Cigarette Cigarettes Per Day: 4 Second Hand Smoke Exposure: No Substance Use Type: Heroin service: No Current occupational status: unemployed and disabled Review of Systems Const Denies daytime sleepiness, Denies excessive sweating, Denies fatigue, Denies fever(s), Denies lethargy, Denies malaise, Denies night sweats, Denies snoring and Denies weight loss Eyes Denies blurry vision and Denies itchy eyes ENT Denies nasal congestion, Denies post nasal drip, Denies sinus pain, Denies sinus pressure and Denies other ( Thrush) Card Denies chest pain, Denies pedal edema, Denies dyspnea, Denies orthopnea and Denies paroxysmal nocturnal dyspnea Resp Denies cough, Denies hemoptysis, Denies excessive phlegm production, Denies dyspnea, Denies snoring and Denies wheezing GI Denies abdominal pain and Denies heartburn Musc Denies myalgias, Denies arthralgias and Denies joint swelling Skin/Breast Denies rash Neuro Denies memory loss and Denies seizure-like activity Psych Denies abnormal sleep pattern, Denies anxiety and Denies memory loss Endo Denies excessive sweating, Denies fatigue and Denies heat intolerance Griffin/Lymph Denies easy bruising Aller/Immun Denies itchy eyes, Denies seasonal rhinorrhea and Denies wheezing Physical Exam Vital Signs: Last Vital Signs Pulse 93 02/29/24 10:54 BP 122/67 02/29/24 10:54 Pulse Ox 96 02/29/24 10:54 Oxygen Delivery Method Room Air 02/29/24 10:54 BMI result Body Mass Index 33.1 Const General: no acute distress and alert Nutritional Appearance: not obese Orientation/consciousness: Other orientation findings ( oriented) HEENT Head: Yes atraumatic Eyes General: appearance normal, both eyes and all related structures Sclerae: sclerae normal EOM: EOMs intact bilaterally Neck Neck: Yes supple Lymphatic: no lymphadenopathy noted Resp Effort & Inspection: normal respiratory effort and no use of accessory muscles Auscultation: clear to auscultation bilaterally Cardio Rate: regular rate Rhythm: regular rhythm Heart sounds: no gallops, no murmurs and no rubs Skin General skin exam: other ( warm) Extrem General: No clubbing, No cyanosis and No edema Assessment & Plan Assessment & Plan (1) COPD (chronic obstructive pulmonary disease): Code(s): J44.9 - Chronic obstructive pulmonary disease, unspecified Category: Medical Plan: Well controlled on current regimen of Trelegy, theophylline, and albuterol MDI. Continue current regimen. (2) Pulmonary fibrosis: Code(s): J84.10 - Pulmonary fibrosis, unspecified Category: Medical Plan: Results of pulmonary function test reviewed and compared to prior, age- appropriate changes. At this time clinically silent. Continue to monitor clinically. Coding Level of Care Code Est Pt Level 4 (69521) Complex EM visit Add On G2211 Diagnoses COPD (chronic obstructive pulmonary disease) J44.9 Pulmonary fibrosis J84.10
== END 2024-02-29 11:06 | disposition home or self-care (01) ==
PROVIDERS: PCP Family Medicine; Visit Provider Internal Medicine Pulmonary Disease
DX: J44.9 Chronic obstructive pulmonary disease, unspecified (principal); J84.10 Pulmonary fibrosis, unspecified
CPT/HCPCS: 99214; G2211

== ENCOUNTER → 2024-02-29 10:53 | Outpatient (BNVA) | payer OTHER, SELFPAY | PROVIDERS: PCP Family Medicine; Visit Provider Internal Medicine Pulmonary Disease | DX: J84.10 Pulmonary fibrosis, unspecified (principal); J44.9 Chronic obstructive pulmonary disease, unspecified; R91.8 Other nonspecific abnormal finding of lung field | CPT/HCPCS: 99212 ==

== ENCOUNTER 2024-04-02 11:58 | Outpatient (REF) | payer OTHER, SELFPAY ==
[2024-04-02 14:16] LABS: Estimated Average Glucose 117 mg/dL; Hemoglobin A1C 150.8949 umol/L; Hemoglobin A1c % 5.7 % (<6.0); Total Hemoglobin (HGBA1C) 3880.5564 umol/L
[2024-04-02 14:19] LABS: Alanine Aminotransferase 20 U/L (0-40); Albumin Level 4.1 g/dL (3.5-5.0); Alkaline Phosphatase 64 U/L (39-117); Anion Gap 9 (12-20); Aspartate Amino Transferase 33 U/L (5-37); Bilirubin Total 0.7 mg/dL (0.0-1.0); Blood Urea Nitrogen 17 mg/dL (9-16); Calcium 9.2 mg/dL (8.4-10.2); Carbon Dioxide 26 mmol/L (22-29); Chloride 108 mmol/L (96-108); Cholesterol 166 mg/dL (<200); Estimated Glomerular Filt Rate > 60; Glucose Random 113 mg/dL (60-115); HDL Cholesterol 38 mg/dL (>40); Potassium 3.9 mmol/L (3.3-5.1); Sodium 139 mmol/L (135-145); Total Protein 7.7 g/dL (6.5-8.0); Triglycerides 482 mg/dL (<150)
[2024-04-02 16:24] LABS: Reflex LDLD? Yes
[2024-04-04 01:29] LABS: LDL Cholesterol Direct 67 mg/dL (<100)
== END 2024-04-02 11:59 | disposition home or self-care (01) ==
LOC: HO.HHCL 11:58
PROVIDERS: Visit Provider Family Medicine
DX: I10 Essential (primary) hypertension (principal); Z13.1 Encounter for screening for diabetes mellitus
CPT/HCPCS: 36415; 80053; 80061; 83036; 83721

== ENCOUNTER 2024-05-28 08:48 | Outpatient (REF) | payer OTHER, SELFPAY | END 2024-05-28 08:49 | disposition home or self-care (01) | LOC: HO.LAB 08:48 | PROVIDERS: PCP Family Medicine; Visit Provider Urology | DX: N40.1 Benign prostatic hyperplasia with lower urinary tract symptoms (principal); R39.15 Urgency of urination; Z12.5 Encounter for screening for malignant neoplasm of prostate | CPT/HCPCS: 36415; 84153 ==

== ENCOUNTER 2024-06-13 08:35 | Outpatient (AMB) | payer OTHER, SELFPAY ==
--- NOTE | 2024-06-13 08:36 | MHC.OFFVIS ---
Intake Visit Reasons: 6m/PSA Intake Note: Patient is present for 6M/PSA Urology Medication:TAMSULOSIN,FINASTERIDE,VITAMIN B12 Antibiotic Allergy:NONE Blood Thinner:NONE Communications Scientist Required: No Allergies No Known Allergies Allergy (Verified 06/13/24 08:37) HPI Comments Details: Joseph is a pleasant male. He is a patient of Dr. Simpson. He is seen for the following urologic conditions - BPH - elevated PSA Pashto translation provided in office by qualified medical clinic manager Prior targeted prostate biopsy with no evidence of disease Continues with elevated PSA now up to 30 Continue to follow Q 6 months Effective urination - good bladder emptying Continue finasteride Lower urinary tract symptoms Longstanding Primary complaint is nocturia with high elevated residual Responded well to tamsulosin and finasteride PSA - 05/01 6.0, 05/03 8.6, 05/04 11, 04/05 21, 11/03 16, 06/04 31 Prior biopsy performed for PSA 8 which was negative 2016 chronic inflammation - 09/02 MRI targeted biopsy - [facility] no cancer Imaging 07/02 MRI cm left lateral posterior PI-RADS 4 lesion 6 month follow-up PSA [facility] Medical History (Updated 01/23/24 @ 07:43 by Krystyna Christianson RN) Schizophrenia Hiatal hernia Opioid dependence, uncomplicated Tobacco use disorder Lung nodules COPD (chronic obstructive pulmonary disease) Undifferentiated schizophrenia Transient alteration of awareness ST segment depression Dizziness Memory impairment Chronic anemia Substance abuse Gallstones Smoker Depression Gastritis Esophagitis Asthma GERD (gastroesophageal reflux disease) HTN (hypertension) Surgical History History of esophagogastroduodenoscopy (EGD) Hx of colonoscopy History of prostate biopsy Family History Father No problems noted. Mother No problems noted. 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/SVP Housing: House Are you a primary critical care cns to a significant other at home: No Do you presently have visiting nurse or other home services: No Alcohol intake: never Patient Tobacco Use Status: Never used Tobacco Tobacco use type: Cigarette Cigarettes Per Day: 4 Second Hand Smoke Exposure: No Substance Use Type: Heroin service: No Current occupational status: unemployed and disabled Review of Systems Const Denies chills and Denies fever(s) Card Reports no additional complaints and Denies syncope Resp Denies cough GI Denies abdominal pain and Denies heartburn Reports as per HPI and Denies change in libido Neuro Denies syncope Psych Denies change in libido Endo Denies change in libido Physical Exam Const General: cooperative, healthy appearing, comfortable and no acute distress Orientation/consciousness: patient oriented x3 HEENT Face and sinus: Yes normal facial exam Mouth: moist mucous membranes Neck Neck: Yes normal visual inspection, Yes full ROM and Yes trachea midline Chest Chest palpation & inspection: normal inspection of the chest Resp Effort & Inspection: normal respiratory effort, able to speak in complete sentences and no respiratory distress GI Inspection: Yes normal to inspection Back/Spine/Pelvis Cervical Spine: normal cervical lordosis Thoracic/Lumbar Spine: thoracic and lumbar spine normal to inspection Skin General skin exam: no rashes or lesions noted Neuro General: patient oriented x3, gait normal, tone normal and moves all extremities Extrem General: Yes normal to inspection and Yes capillary refill normal Assessment & Plan Assessment & Plan (1) Elevated PSA: Comment: Prior biopsy for PSA 8 NAD Code(s): R97.20 - Elevated prostate specific antigen [PSA] Category: Medical (2) Benign prostatic hyperplasia (BPH) with urinary urgency: Code(s): N40.1 - Benign prostatic hyperplasia with lower urinary tract symptoms; R39.15 - Urgency of urination Category: Medical Plan Six-month follow-up PSA Orders: Orders PSA,Total (Free>4and<10) 6 Months R97.20 - Elevated prostate specific antigen [PSA] Medications: Refilled finasteride 5 mg PO DAILY 90 days 90 tabs 1RF N13.8 - Other obstructive and reflux uropathy, N40.1 - Benign prostatic hyperplasia with lower urinary tract symptoms, R33.9 - Retention of urine, unspecified, R39.15 - Urgency of urination Patient Instructions: This note is constructed using voice recognition software. While every effort has been made to ensure accuracy morning show newscast producer errors may have been included. Imaging studies, laboratory and physical exam results were discussed and reviewed in detail. No major barriers to patient understanding were identified. An opportunity to ask questions regarding the treatment plan was provided. All questions were answered. The patient expressed understanding and agreement with the above treatment plan. The patient is aware they should contact our office by phone for worsening of their current condition or the appearance of new urologic symptoms. Compliance is encouraged with any medications and followup testing that is ordered. It is a privilege to participate in the urologic care of your patient. If you have any questions or concerns regarding treatment for the above conditions, or other urologic issues, please do not hesitate to contact me. The office telephone contact is [phone]. Sincerely, Dr Stevie Molina MD, [facility] - Urology Compassionate Specialist Care for the Genitourinary System Coding Level of Care Code Est Pt Level 3 (58882) Complex EM visit Add On G2211 Diagnoses Elevated PSA R97.20 Benign prostatic hyperplasia (BPH) with urinary urgency N40.1; R39.15
--- OUTSIDE RECORDS SUMMARY | 2024-06-13 08:45 | XMS_ITS | Encounter Summary ---
Author Organization [employer] [facility] Address [address] [place] [address] 7t [place] [address] Care Team Providers Care Dental Amalgam Processor Name Role Phone Hallie Mcclendon MD Primary Care Provider [phone] Encounter Details Date Type Department Care Team (Late Contact Info) Description 04/01/2022 Orders Only [facility] MEDICINE [address] [place] [address] Yuliana Barrios, RN Social History Tobacco Use Types Packs/Day Years Used Date Smoking Tobacco: Never Assessed Sex and Gender Information Value Date Recorded Sex Assigned at Male 01/10/2022 10:15 AM EDT Legal Sex Male 10:15 AM EDT Gender Identity Male 01/10/2022 10:15 AM EDT Sexual Orientation Straight 01/10/2022 10 :15 AM EDT COVID-19 Exposure Response Date Recorded In the last 10 days, have yo u been in contact with someone who was confirmed or suspected to have Coronavirus/COVID-19? No / Unsure 03/21/2022 9:18 AM EST documented as of this encounter Plan of Treatment Upcoming Encounters Date Type Department Care Team (Late Contact Info) Description 07/22/2024 9:30 AM EDT Office Visit [facility] MED[facility]INE [address] [place], [place] [phone] Hallie Mcclendon MD [address] [place] [address] documented as of this encounter Visit Diagnoses Not on filedocumented in this encounter Care Teams Dental Amalgam Processor Relationship Specialty Start Date End Date Hallie Mcclendon MD [address] [place] [address] [place] [address] PCP - General Family Medicine 03/13/18 [facility] 07/05/19 documented as of this encounter
--- OUTSIDE RECORDS SUMMARY | 2024-06-13 08:45 | XMS_ITS | Encounter Summary ---
Author Organization [employer] Address [address] [facility] 7t [place] [address] Care Team Providers Care Environmental Science Instructor Name Role Phone Hallie Mcclendon MD Primary Care Provider [phone] Encounter Details Date Type Department Care Team (Late st Contact Info) Description 04/27/2023 Orders Only [facility] MEDICINE [address] [place], [place] [phone] Hallie Mcclendon MD [address] [place] [address] Social History Tobacco Use Types Packs/Day Years Used Date Smoking Tobacco: Every Day Cigarettes Passive Smoke Exposure: Current Smokeless Tobacco: Never Alcohol Use Standard Drinks/Week Comments Not Currently 0 (1 standard drink = 0.6 oz pur e alcohol) PHQ-2 Answer Date Recorded Patient Health Questionnaire-2 Score 0 04/21/2022 Housing Stability Answer Date Recorded What is your housing situation today? I have naseemcarolynn courtney 12/27/[address] you li ve. Do you have problems with any of the following? None of the above 12/27/2022 Food Insecurity Answer Date Recorded Within the past 12 months, y ou worried that your food would run out before you got money to buy more: Never True 12/27/2022 Within the past 12 months,th e food you bought just didn't last and you didn't have enough money to get more: Never True Transportation Answer Date Recorded In the past 12 months, has l ack of transportation kept you from medical appts, meetings, work or from getting things needed for daily living? Yes, it has kept me from medical appointments or getting medications. 12/19/2022 Utilities Answer Date Recorded In the past 12 months, has t he electric, gas, oil or water company threatened to shut off services in your home? No 12/27/2022 Depression Answer Date Recorded Patient Health Questionnaire-2 Score 0 04/21/2022 Sex and Gender Information Value Date Recorded Sex Assigned at Male 01/10/2022 10:15 AM EDT Legal Sex Male 10:15 AM EDT Gender Identity Male 01/10/2022 10:15 AM EDT Sexual Orientation Straight 01/10/2022 10 :15 AM EDT documented as of this encounter Plan of Treatment Upcoming Encounters Date Type Department Care Team (Late st Contact Info) Description 07/22/2024 9:30 AM EDT Office Visit [facility] MEDICINE [address] [place] [address] Hallie Mcclendon MD [address] [place] [address] documented as of this encounter Visit Diagnoses Not on filedocumented in this encounter Care Teams Environmental Science Instructor Relationship Specialty Start Date End Date Hallie Mcclendon MD [address] [place] [address] PCP - General Family Medicine 03/13/18 [facility] 07/05/19 documented as of this encounter
--- OUTSIDE RECORDS SUMMARY | 2024-06-13 08:45 | XMS_ITS | Encounter Summary ---
Author Organization [email or web address] Address [address] [facility] 7t [place] [address] Care Team Providers Care Pharmacovigilance Scientist Name Role Phone Hallie Mcclendon MD Primary Care Provider [phone] Reason for Visit * Reason Onset Date Comments Med Refill 09/15/2023 Encounter Details Date Type Department Care Team ([facility] st Contact Info) Description 09/15/2023 Telephone [facility] MEDICINE [address] [place], [place] [phone] Hallie Mcclendon MD [address] [place], [place] [phone] Med Refill Social History Tobacco Use Types Packs/Day Years Used Date Smoking Tobacco: Every Day Cigarettes Passive Smoke Exposure: Current Smokeless Tobacco: Never Alcohol Use Standard Drinks/Week Comments Not Currently 0 (1 standard drink = 0.6 oz pur e alcohol) Depression Answer Date Recorded Patient Health Questionnaire-9 Score 0 08/09/2023 Patient Health Questionnaire-9 Score 0 08/09/2023 Last PHQ-9: Questionnaire Data Not on file 0 08/09/2023 Housing Stability Answer Date Recorded What is your housing situation today? I have naseem courtney 07/28/[address] you li ve. Do you have problems with any of the following? None of the above 07/28/2023 Food Insecurity Answer Date Recorded Within the past 12 months, y ou worried that your food would run out before you got money to buy more: Never True 07/28/2023 Within the past 12 months,th e food you bought just didn't last and you didn't have enough money to get more: Never True Transportation Answer Date Recorded In the past 12 months, has l ack of transportation kept you from medical appts, meetings, work or from getting things needed for daily living? No 07/28/2023 Utilities Answer Date Recorded In the past 12 months, has t he electric, gas, oil or water company threatened to shut off services in your home? No 07/28/2023 Depression Answer Date Recorded Patient Health Questionnaire-2 Score 0 08/09/2023 Sex and Gender Information Value Date Recorded Sex Assigned at Male 01/10/2022 10:15 AM EDT Legal Sex Male 10:15 AM EDT Gender Identity Male 01/10/2022 10:15 AM EDT Sexual Orientation Straight 01/10/2022 10 :15 AM EDT documented as of this encounter Miscellaneous Notes * Telephone Encounter - Giovanna Johnson LPN - 09/15/2023 8:46 AM EDT Medication pended to PCP. * Telephone Encounter - Jc Dawson - 09/15/2023 8:35 AM EDT TC from pt requesting medication refill. Medications needing refill : cholecalciferol (Vitamin D-3) 50 MCG (2000 UT) tablet and omega-3 1000MG capsule capsule To be sent to: [facility] - [place], [place] - [address] [place] [address] documented in this encounter Plan of Treatment Upcoming Encounters Date Type Department Care Team (Late st Contact Info) Description 07/22/2024 9:30 AM EDT Office Visit [facility] [address] [place] [address] Hallie Mcclendon MD [address] [place] [address] documented as of this encounter Visit Diagnoses Not on filedocumented in this encounter Additional Health Concerns Assessment Noted Time PHQ-9 Depression Total Score: 0 08/09/19 24 9:27 AM EDT documented as of this encounter Care Teams Pharmacovigilance Scientist Relationship Specialty Start Date End Date Hallie Mcclendon MD [address] [place] [address] PCP - General Family Medicine 03/13/18 [facility] 07/05/19 documented as of this encounter
--- OUTSIDE RECORDS SUMMARY | 2024-06-13 08:45 | XMS_ITS | Encounter Summary ---
Author Organization [employer] Address [address] [place] [address] 7t [place] [address] Care Team Providers Care Sausage Mixer Name Role Phone Hallie Mcclendon MD Primary Care Provider [phone] Reason for Referral * Consultation (Urgent) - Closed Specialty Diagnoses / Procedures Referred By Contangel t Referred To Contact Orthopaedic Surgery Diagnoses Left forearm pain Fall, subsequent encounter Hallie Mcclendon MD [address] [place] [address] Phone: tel: fax: [facility] [address] [place] [address] Phone: tel: Referral ID Status Reason Start Date Expiration Date V isits Requested Visits Authorized [id number] Closed Specialty Services Required 09/22/2023 09/21/2024 1 1 Encounter Details Date Type Department Care Team (Late st Contact Info) Description 09/22/2023 Orders Only [facility] MEDICINE [address] [place], [place] [phone] Hallie Mcclendon MD [address] [place], [place] [phone] Left forearm pain (Primary Dx); Fall, subsequent encounter Social History Tobacco Use Types Packs/Day Years [...] Description 07/22/2024 9:30 AM EDT Office Visit [facility] MEDICINE [address] [place] [address] Hallie Mcclendon MD [address] [place] [address] Scheduled Referrals Name Type Priority Associated Diagnoses Order Schedule Referral to Orthopaedic Surgery Outpatient Referral Urgent Left forearm pain Fall, subsequent encounter Expected: 09/22/2023 (Approximate), Expires: 09/21/2024 documented as of this encounter Visit Diagnoses Diagnosis Left forearm pain- Primary Fall, subsequent encounter documented in this encounter Additional Health Concerns Assessment Noted Time PHQ-9 Depression Total Score: 0 08/09/19 24 9:27 AM EDT documented as of this encounter Care Teams Sausage Mixer Relationship Specialty Start Date End Date Hallie Mcclendon MD [address] [place] [address] PCP - General Family Medicine 03/13/18 [facility] 07/05/19 documented as of this encounter
--- OUTSIDE RECORDS SUMMARY | 2024-06-13 08:45 | XMS_ITS | Encounter Summary ---
Author Organization [employer] Address [address] [facility] 7t [place] [address] Care Team Providers Care Retail Cashier Name Role Phone Hallie Mcclendon MD Primary Care Provider [phone] Reason for Visit * Reason Onset Date Comments Durable Medical Equipment 05/31/2024 Encounter Details Date Type Department Care Team ([facility] st Contact Info) Description 05/31/2024 Telephone [facility] MEDICINE [address] [place], [place] [phone] Hallie Mcclendon MD [address] [place], [place] [phone] Durable Medical Equipment Social History Tobacco Use Types Packs/Day Years Used Date Smoking Tobacco: Former Cigarettes Passive Smoke Exposure: Current Smokeless Tobacco: Never Alcohol Use Standard Drinks/Week Comments Not Currently 0 (1 standard drink = 0.6 oz pur e alcohol) Depression Answer Date Recorded Patient Health Questionnaire-9 Score 0 11/20/2023 Patient Health Questionnaire-9 Score 0 11/20/2023 Last PHQ-9: Questionnaire Data Not on file 0 11/20/2023 Housing Stability Answer Date Recorded What is [...] Date Recorded Patient Health Questionnaire-2 Score 0 11/20/2023 Sex and Gender Information Value Date Recorded Sex Assigned at Male 01/10/2022 10:15 AM EDT Legal Sex Male 10:15 AM EDT Gender Identity Male 01/10/2022 10:15 AM EDT Sexual Orientation Straight 01/10/2022 10 :15 AM EDT documented as of this encounter Miscellaneous Notes * Telephone Encounter - Gayatri Liang [place] - 06/08/2024 10:04 AM EDT DME RX generated for item below placed on PCP desk for signature. * Telephone Encounter - Gumaro Warner - 05/31/2024 10:46 AM EDT TC from Ahstyn ( relative) requesting Recliner chair for pt to be faxed to [facility] along with Medical necessity form documented in this encounter Plan of Treatment Upcoming Encounters Date Type Department Care Team (Late st Contact Info) Description 07/22/2024 9:30 AM EDT Office Visit [facility]ICINE [address] [place] [address] Hallie Mcclendon MD [address] [place] [address] documented as of this encounter Visit Diagnoses Not on filedocumented in this encounter Additional Health Concerns Assessment Noted Time PHQ-9 Depression Total Score: 0 11/20/19 24 9:22 AM EDT documented as of this encounter Care Teams Retail Cashier Relationship Specialty Start Date End Date Hallie Mcclendon MD [address] [place] [address] PCP - General Family Medicine 03/13/18 [facility] 07/05/19 documented as of this encounter
--- OUTSIDE RECORDS SUMMARY | 2024-06-13 08:45 | XMS_ITS | Data Portability ---
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 Role Phone [facility] OTHER [facility] OTHER [phone] Assessment Encounter Date Assessment Date Assessment LastModified by Organization Details LastModified Time 06/02/2022 06/02/2022 service called for f/up chest wall and back pain found 82 yom in normal state of health isolated chest and back pinch pain yesterday while turning today no discomfort normal ROM, normal exercise capacity no new weakness, numbness, tingling VSS reported negative #Chest wall strain uncomplicated and self-resolved return to ptimary team notify service if new complaint [email or web address] Not available 06/02/2022 18:07:35 01/01/2024 01/01/2024 I provided real -time medical direction via phone for this encounter, and was available for additional phone based assistance as needed. I have reviewed and agree with the Assessment and Plan as documented by the Oncology Pharmacist. We discussed the diagnostic uncertainty of home visits and the risk associated with this. In this case I felt this to be an acceptable and reasonable amount of risk given the benefit of avoiding an ED visit. The patient given the opportunity to ask questions via Scottish language line delivery clerk.. Advised if develops severe pain in the hand/ LUE/ if it becomes red / hot or cold blue or numb// hi fever advised to get rechecked immediately in the emergency department- he verbalized understanding of instructions to the medic via delivery clerk Not available 01/01/2024 12:52:50 Plan of Treatment Reminders Order Date Submit Date Provider Last Modified By Organization Details Last Modified Time Details Appointments None recorded. Lab None recorded. Referral None recorded. Procedures None recorded. Surgeries None recorded. Imaging None recorded. Medication Orders acetaminoph en 500 mg tablet 2023 024 [email or web address] Not available 4 13:22:31 acetaminoph en 500 mg tablet 2023 024 [facility], [address] [place] [address], [id number], 4 15:34:02 Patient TargetsNo targets recorded. Patient InstructionsNo instructions recorded. Reason for Referral None Reported. Medical Equipment None Reported. Allergies No known drug allergies Medications Name Sig Start Date Stop Date Status Note LastModified by Organization Details LastModified Time medbox status USE DIRECTED active Not Available Not Available No t Available multivitamin tablet TAKE 1 TABLET BY MOUTH EVERY MORNING WITH FOOD active Not Available Not Available No t Available quetiapine 25 mg tablet active Not Available Not Available No t Available haloperidol 0.5 mg tablet TAKE 1 TABLET BY MOUTH AT BEDTIME active Not Available Not Available No t Available atorvastatin 20 mg tablet TAKE 1 TABLET BY MOUTH AT BEDTIME active Not Available Not Available No t Available benztropine 0.5 mg tablet TAKE 1 TABLET BY MOUTH AT BEDTIME active Not Available Not Available No t Available Vitamin C 500 mg tablet TAKE 1 TABLET BY MOUTH TWICE DAILY IN THE MORNING AND IN THE EVENING active Not Available Not Available No t Available trazodone 50 mg tablet TAKE 1 TABLET BY MOUTH AT BEDTIME active Not Available Not Available No t Available azithromycin 250 mg tablet TAKE 2 TABLETS BY MOUTH ON DAY 1, THEN TAKE 1 TABLET DAILY ON DAYS 2-5 active Not Available Not Available No t Available theophylline ER 400 mg tablet,extend ed release 24 hr TAKE 1 TABLET BY MOUTH EVERY DAY active Not Available Not Available No t Available alendronate 70 mg tablet take 1 tablet once a week with 6 to 8 oz of water 30 min before first food of day. do not lie down for 30 minutes active Not Available Not Available N ot Available sertraline 100 mg tablet TAKE 2 TABLETS BY MOUTH ONCE DAILY IN THE MORNING active Not Available Not Available No t Available cyanocobalami n (vit B-12) 1,000 mcg tablet TAKE 1 TABLET BY MOUTH EVERY MORNING active Not Available Not Available No t Available ciprofloxacin 500 mg tablet TAKE 1 TABLET BY MOUTH TWICE DAILY FOR 3 DAYS (DAY BEFORE, DAY OF, & DAY AFTER PROCEDURE) active Not Available Not Available N ot Available omeprazole 40 mg capsule,delay ed release TAKE 1 TABLET BY MOUTH EVERY MORNING active Not Available Not Available No t Available aspirin 81 mg tablet,delaye d release TAKE 1 TABLET BY MOUTH EVERY MORNING active Not Available Not Available No t Available quetiapine 100 mg tablet TAKE 1 TABLET BY MOUTH AT BEDTIME active Not Available Not Available No t Available acetaminophen 500 mg tablet TAKE 1 TO 2 TABLETS BY MOUTH EVERY 8 HOURS NEEDED (for pain) active Not Available Not Available N ot Available tamsulosin 0.4 mg capsule TAKE 1 CAPSULE BY MOUTH EVERY EVENING active Not Available Not Available No t Available trazodone 100 mg tablet TAKE 1 TABLET BY MOUTH AT BEDTIME FOR SLEEP active Not Available Not Available No t Available ascorbic acid (vitamin C) 250 mg tablet TAKE 1 TABLET BY MOUTH EVERY MORNING WITH IRON active Not Available Not Available No t Available ferrous sulfate 325 mg (65 mg iron) tablet TAKE 1 TABLET BY MOUTH EVERY MORNING WITH vitamin c WITH BREAKFAST active Not Available Not Available No t Available docusate sodium 100 mg capsule TAKE 1 CAPSULE BY MOUTH TWICE DAILY IN THE MORNING AND IN THE EVENING active Not Available Not Available No t Available oxybutynin chloride ER 5 mg tablet,extend ed release 24 hr TAKE 1 TABLET BY MOUTH EVERY MORNING active Not Available Not Available No t Available bisacodyl 5 mg tablet,delaye d release TAKE 2 TABLETS BY MOUTH EVERY DAY AT BEDTIME FOR 2 DAYS active Not Available Not Available N ot Available furosemide 20 mg tablet TAKE 1 TABLET BY MOUTH EVERY MORNING active Not Available Not Available No t Available metoprolol succinate ER 25 mg tablet,extend ed release 24 hr TAKE 1 TABLET BY MOUTH EVERY MORNING active Not Available Not Available No t Available betamethasone dipropionate 0.05 % topical ointment APPLY A THIN LAYER TOPICALLY AFFECTED AREA(S) TWICE DAILY active Not Available Not Available No t Available finasteride 5 mg tablet TAKE 1 TABLET BY MOUTH EVERY EVENING active Not Available Not Available No t Available nicotine 7 mg/24 hr daily transdermal patch APPLY 1 PATCH TOPICALLY TO THE SKIN IN THE MORNING DO NOT SMOKE WHILE USING PATCH active Not Available Not Available No t Available Ventolin HFA 90 mcg/actuation aerosol inhaler INHALE 1 PUFF BY MOUTH FOUR TIMES DAILY NEEDED SHORTNESS OF BREATH OR FOR WHEEZING active Not Available Not Available No t Available omega-3 acid ethyl esters 1 gram capsule TAKE 1 CAPSULE BY MOUTH TWICE DAILY IN THE MORNING AND IN THE EVENING active Not Available Not Available No t Available quetiapine 50 mg tablet TAKE 1 TABLET BY MOUTH TWICE DAILY IN THE MORNING AND IN THE EVENING active Not Available Not Available No t Available peg 3350-electrol ytes 236 gram-22.74 gram-6.74 gram-5.86 gram solution MIX WITH WATER AND DRINK 240 ML BY MOUTH EVERY 10 MINUTES UNTIL FECAL EFFLUENT IS CLEAR. NO MORE THAN 1/2 BOTTLE active Not Available Not Available No t Available cholecalcifer ol (vitamin D3) 50 mcg (2,000 unit) tablet TAKE 1 TABLET BY MOUTH EVERY MORNING active Not Available Not Available No t Available Anoro Ellipta 62.5 mcg-25 mcg/actuation powder for inhalation INHALE 1 PUFF BY MOUTH DAILY active Not Available Not Available No t Available Entresto 49 mg-51 mg tablet TAKE 1 TABLET BY MOUTH TWICE DAILY IN THE MORNING AND IN THE EVENING active Not Available Not Available No t Available Entresto 24 mg-26 mg tablet TAKE 1 TABLET BY MOUTH TWICE DAILY IN THE MORNING AND IN THE EVENING active Not Available Not Available No t Available Trelegy Ellipta 200 mcg-62.5 mcg-25 mcg powder for inhalation INHALE 1 PUFF BY MOUTH EVERY DAY AT THE SAME TIME active Not Available Not Available No t Available Vitals Date Recorded Heart rate Body weight Respiratory rate Body temperature Body height Oxygen saturation Oxygen saturation in Arterial blood by Pulse oximetry Systolic blood pressure Diastolic blood pressure Provider Name and Address Organization Details Last Updated DateTime 4 89 /min 60191.3 36 g 17 /min 98.2 [degF] 160.02 cm 96 % 96 % 114 mm[Hg] 82 mm[Hg] Not Available [facility] 4 12:55:59 Date Recorded Body temperature Oxygen saturation Oxygen saturation in Arterial blood by Pulse oximetry Heart rate Respiratory rate Body weight Respiratory rate Oxygen saturation Oxygen saturation in Arterial blood by Pulse oximetry Body temperature Heart rate Body weight Systolic blood pressure Diastolic blood pressure Systolic blood pressure Diastolic blood pressure Provider Name and Address Organization Details Last Updated DateTime 3 98.5 [degF] 99 % 99 % 82 /min 14 /min 12459.3 76 g 14 /min 99 % 99 % 98.5 [degF] 82 /min 32646.3 76 g 118 mm[Hg] 76 mm[Hg] 118 mm[Hg] 76 mm[Hg] Not Available [facility] 3 12:23:06 Social History None recorded. Functional Status None recorded. Mental Status None recorded. Family History Nothing Reported. Medical History No medical history recorded. Past Encounters Encounter ID Performer Location Encounter Start Date Encounter Closed Date Diagnosis/Indication Diagnosis SNOMED-CT Code Diagnosis ICD10 Code Diagnosis Note [id number] Deshawn Stanton MD Main - [address] [address] 06/02/2022 12:06:33 06/06/2022 12:44:47 Strain of muscle of chest wall [id number] S29.011A [id number] Joanne Smith MD Main - [address] [address] 01/01/2024 12:33:37 01/02/2024 10:13:23 Contusion of left thumb [id number] S60.012A Advised to elevate/ advised ice / wrapped in a towel for 48 hours every 3 hours and then ice alternatin g w/ gentle heat q 3-4H w/a to affected areaGiven history of-failure , HTN, NSAIDs are contraindi cated for this patient but he may have Tylenol Likely etiology is he banged his thumb with the repetitive hand movements without realizing it-he does take aspirin 81 mg daily. Advised if not improving needs to follow-up with PCP for further eval and possible radiograph ic studies, but the fact that it is nontender with intact range of motion, fracture is unlikely Is requesting Tylenol for now mild pain-aller gies and pharmacy reviewed with anahy wyman [facility] Concerns Section Related Observation LastModified by Organization Detai ls LastModified Time None Recorded Concern Status LastModified by Organization Details LastModified Time None Recorded Advance Directives Directive None Recorded Payers Encounter Date Sequence Insurance Name Policy Number Policy Crawford Covered Member ID Crawford Member ID Guarantor Name 06/02/2022 1 [facility] - DOS PRIOR TO 2022 - DUAL ELIGIBLE (MEDICARE REPLACEMENT/ADV ANTAGE - HMO) Joseph Hicks [id number] Joseph Hicks 01/01/2024 1 [facility] - DOS ON OR AFTER 2022 - DUAL ELIGIBLE - RESIDENTIAL OPTIONS AND ONE CARE (MEDICARE REPLACEMENT/ADV ANTAGE - HMO) Joseph Hicks [id number] Joseph Hicks Notes Date Note Type Note Provider Name and Address Organization Details Recorded Time 06/02/2022 text/html HPI: Spoke with member via Scottish int #[id number] requesting [facility] visit for eval R sided upper back and chest area since yesterday s/p turned to take seatbelt off. No OTC's States pain resolved would just like it checked Deny SOB or N/V. Discuss if symptoms return/progress to seek emergent care call 911/-verbalize understanding. Verify member identity name/- .................... .................... .................... .................... .................... .................... .................... . Oncology Pharmacist Note From Pedro Pablo Holland: Pt requested a follow - up for pn associated with muscle pn in ribs and back. Pt was taking his seatbelt off and felt a small pinch. Neg chest pn, Neg SOB. Pt states has no pn today, just wanted to have it checked. Spoke with and he concurred. No medications given . .................... .................... .................... .................... .................... .................... .................... . Disposition: Kevin Stanton MD [address], [place], [address], [employer] 06/02/2022 18:07:45 01/01/2024 text/html HPI: Patient with bruising and swelling to left thumb. No noted injury and skin intact with full ROM no significant pain. Etiology unknown. .................... .................... .................... .................... .................... .................... .................... . [facility] Nurse Triage Notes (Skye Vasquez): Chief Complaints: Edema PMH: Heart Disease, Hypertension, CHF, COPD/Asthma Comments: [facility] RN DID NOT NEED FURTHER INFO .................... .................... .................... .................... .................... .................... .................... . Oncology Pharmacist Note From Mauricio Katz: [facility] makes pt contact 83 yo M CC of swelling to left thumb.[facility] obtains consent and uploads electronically. PT vitals obtained. [facility] uses interpretation services due to language barrier. PT explains he broke his left wrist roughly 4 months ago. PT awoke today with a swollen left thumb. PT denies pain, has full range of motion, not sensitive/painful to touch, sufficient capillary refill, appears like a bruise, mild swelling is noted. PT denies any medication allergies. PT medication is managed by 3rd green party, box is locked. PT denies blood thinners or any recent traumas. [facility] [place] [facility] [place] picture electronically. [facility] [place] pt struck hand causing the injury and bruising, PT also has repetitive movement of rolling the thumb across the pointer finger with a closed fist which was witnessed throughout the call. [facility] [place] 1gram of PO acetaminophen if pt wants it which he agrees too, PT also accepts a prescription of acetaminophen sent to his pharmacy at [facility]. PT is advised to use ice and heat to relieve any pain / swelling, it is also recommended that pt follow up with his pcp about the repetitive hand movements which could be caused by his psychiatric medication. PT is advised that if he notices his finger turn white or severely discolored, abnormal sensations, pain increases, range of motion decrease or it doesnt appear to be getting better then he may need imaging. PT understands [facility] clear. .................... .................... .................... .................... .................... .................... .................... . Disposition: Fulfilled SEGMD: On record review patient's PMH includes, but is not limited to COPD, pulmonary fibrosis, HTN, HF with EF 35 to 40%, dyslipidemia, colonic polyp, elevated PSA, osteoporosis, PVD with venous insufficiency, esophageal hernia, schizophrenia, mixed anxiety and depression. 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
--- OUTSIDE RECORDS SUMMARY | 2024-06-13 08:45 | XMS_ITS | Encounter Summary ---
Author Organization [employer] Address [address] [place] [address] Care Team Providers Care Councilperson Name Role Phone Hallie Mcclendon MD Primary Care Provider [phone] Reason for Visit * Reason Comments Med Refill Encounter Details Date Type Department Care Team ([facility] st Contact Info) Description 07/13/2023 Refill [facility] [address] [place], [place] [phone] Hallie Mcclendon MD [address] [place], [place] [phone] Constipation, unspecified constipation type Social History Tobacco Use Types Packs/Day Years Used Date Smoking Tobacco: Every Day Cigarettes Passive Smoke Exposure: Current Smokeless Tobacco: Never Alcohol Use Standard Drinks/Week Comments Not Currently 0 (1 standard drink = 0.6 oz pur e alcohol) PHQ-2 Answer Date Recorded Patient Health Questionnaire-2 Score 0 04/21/2022 Housing Stability Answer Date Recorded What is your housing situation today? I have naseem courtney 12/27/[address] you [...] Description 07/22/2024 9:30 AM EDT Office Visit [facility] [address] [place] [phone] Hallie Mcclendon MD [address] [place] [phone] documented as of this encounter Visit Diagnoses Diagnosis Constipation, unspecified constipation type documented in this encounter Care Teams Councilperson Relationship Specialty Start Date End Date Hallie Mcclendon MD [address] [place] [phone] PCP - General Family Medicine 03/13/18 [facility] 07/05/19 documented as of this encounter
--- OUTSIDE RECORDS SUMMARY | 2024-06-13 08:45 | XMS_ITS | Clinical Summary ---
Author Organization [employer] Address [address] [facility] [address] [place] [address] Care Team Providers Care Physician Obstetrician Name Role Phone Hallie Chavira MD Primary Care Provider [phone] Allergies No known active allergies Medications traZODone (Desyrel) 50 MG tablet Take 50 mg by mouth at bedtime. 03/11/20 22 Active QUEtiapine (SEROquel) 100 MG tablet Take 1 tablet by mouth at bedtime. Active metoprolol succinate XL (Toprol-XL) 25 MG 24 hr tablet Take 1 tablet by mouth at bed time. 09/26/19 22 Active albuterol (2.5 MG/3ML) 0.083% nebulizer solution inhale 3 milliliter (2.5MG) by nebulization route every 4-6 hours as needed for difficulty breathing, up to 4 times/day as needed 11/06/19 21 Active albuterol 108 (90 Base) MCG/ACT inhaler Inhale 2 puffs every 4 (four) hours if needed. 10/03/19 21 Active naloxone (Narcan) 4 mg/0.1 mL nasal spray Administer 0.1 mL into affected nostril(s). 03/18/19 21 Active tamsulosin (Flomax) 0.4 MG 24 hr capsule Take 0.4 mg by mouth in the evening. 01/25/20 22 Active Fluticasone-Ume clidin-Vilant (Trelegy Ellipta) 200-62.5-25 MCG/ACT aerosol powder Inhale 1 puff at bed time. Active theophylline ER (Uniphyl) 400 MG 24 hr tablet Take 1 tablet by mouth in the morning. Active finasteride (Proscar) 5 MG tablet Take 1 tablet by mouth at bed time. Active sacubitril-vals richard (Entresto) 49-51 MG tablet Take 1 tablet by mouth in the morning and at bedtime. Active nicotine (Nicoderm, Step 3) 7 MG/24HR patch APPLY 1 PATCH TOPICALLY TO THE SKIN DAILY IN THE MORNING THEN REMOVE AT BEDTIME DIRECTED. DO NOT SMOKE WHILE USING PATCH 03/30/19 23 Active cyanocobalamin (Vitamin B-12) 1000 MCG tablet TAKE 1 TABLET BY MOUTH EVERY MORNING 90 tablet 3 10/18/19 23 Active omeprazole (PriLOSEC) [address] capsuleIndicati ons:Gastroesoph ageal reflux disease, unspecified whether esophagitis present TAKE 1 CAPSULE BY MOUTH EVERY MORNING BEFORE BREAKFAST 90 capsule 3 08/09/19 24 Active Multiple Vitamin (Multivitamin) tablet TAKE 1 TABLET BY MOUTH EVERY MORNING WITH FOOD 90 tablet 3 08/09/19 24 Active sertraline (Zoloft) 100 MG tablet Take 2 tablets (200 mg) by mouth Once per day. 60 tablet 08/20/19 24 Active QUEtiapine (SEROquel) 50 MG tablet Take 1 tablet (50 mg) by mouth before breakfast and before evening meal. 60 tablet 08/20/19 24 Active furosemide (Lasix) 20 MG tablet Take 20 mg by mouth in the morning. 09/11/19 24 Active omega-3 1000 MG capsule capsuleIndicati ons:Dyslipidemi a Take 1 capsule (1,000 mg) by mouth 2 times daily. 60 capsule 03/05/20 24 Active alendronate (Fosamax) 70 MG tablet take 1 tablet once a week with 6 to 8 oz of water 30 min before first food of day. do not lie down for 30 minutes 4 tablet 11 03/18/19 25 Active cholecalciferol VITAMIN D (Vitamin D-3) 50 MCG (2000 UT) tabletIndicatio ns:Vitamin deficiency TAKE 1 TABLET BY MOUTH EVERY MORNING 30 tablet 5 03/27/19 25 Active docusate sodium (Colace) 100 MG capsuleIndicati ons:Constipatio n, unspecified constipation type TAKE 1 CAPSULE BY MOUTH TWICE DAILY IN THE MORNING AND IN THE EVENING 180 capsule 1 04/02/19 25 Active atorvastatin (Lipitor) 40 MG tablet Take 1 tablet (40 mg) by mouth at bedtime. 90 tablet 3 04/06/19 25 Active Acetaminophen Extra Strength 500 MG tablet TAKE 1 TO 2 TABLETS BY MOUTH EVERY 8 HOURS NEEDED FOR PAIN OR FEVER 90 tablet 1 05/23/19 25 Active Ascorbic Acid (vitamin C) 250 MG tabletIndicatio ns:Anemia, unspecified type TAKE 1 TABLET BY MOUTH EVERY MORNING 30 tablet 06/07/19 25 Active Ferrous Sulfate (iron) 325 (65 Fe) MG tabletIndicatio ns:Anemia, unspecified type TAKE 1 TABLET BY MOUTH EVERY MORNING 30 tablet 06/07/19 25 Active omega-3 acid ethyl esters (Lovaza) 1 g capsuleIndicati ons:Hyperlipide remigio, unspecified TAKE 1 CAPSULE BY MOUTH TWICE DAILY IN THE MORNING AND IN THE EVENING 60 capsule 06/07/19 25 Active acetaminophen (Tylenol) 500 MG tablet Take 1 or 2 tablets by mouth every 8 hours as needed for pain or fever. 90 tablet 1 03/12/20 24 2024 Discontinued Ferrous Sulfate (iron) 325 (65 Fe) MG tabletIndicatio ns:Anemia, unspecified type TAKE 1 TABLET BY MOUTH EVERY MORNING (WITH vitamina c WITH BREAKFAST) 30 tablet 05/09/19 25 2024 Discontinued omega-3 acid ethyl esters (Lovaza) 1 g capsuleIndicati ons:Hyperlipide remigio, unspecified TAKE 1 CAPSULE BY MOUTH TWICE DAILY IN THE MORNING AND IN THE EVENING 60 capsule 05/09/19 25 2024 Discontinued Ascorbic Acid (vitamin C) 250 MG tabletIndicatio ns:Anemia, unspecified type TAKE 1 TABLET BY MOUTH EVERY MORNING (WITH IRON) 30 tablet 05/09/19 25 2024 Discontinued Active Problems Problem Noted Date Diagnosed Date Hypertriglyceridemia 04/06/2024 Assessment & Plan (04/06/2024 7:02 AM EST): - history of elevated Triglyceride > 500 - he has been on omega-3 (DHA / EPA) 1 g bid. - consider changing to icosapent ethyl if no improvement after maximizing statin intensity and omega-3 dose. Overweight 08/11/2023 Assessment & Plan (08/11/2023 6:17 PM EDT): - he has lost weight intentionally - continue working on lifestyle modifications Pulmonary fibrosis 08/09/2023 Assessment & Plan (04/06/2024 6:43 AM EST): - following with [facility] pulmonology - quit smoking 7 months ago Assessment & Plan (11/20/2023 10:12 AM EDT): - following with [facility] pulmonology - quit smoking 4 months ago Assessment & Plan (08/11/2023 6:11 PM EDT): - following with [facility] pulmonology Family history of colon cancer 08/04/2023 GERD (gastroesophageal reflux disease) History of sphincterotomy of sphincter of Oddi 0 08/04/2023 Sessile colonic polyp 08/04/2023 Assessment & Plan (11/20/2023 10:15 AM EDT): - seen by [facility] GI, and is being scheduled for colonoscopy in September 2023 Assessment & Plan (08/11/2023 6:12 PM EDT): - seen by [facility] GI, and is being scheduled for colonoscopy in September 2023 History of substance use disorder 08/04/2023 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 -Continue current medications: Metoprolol succinate 25 mg daily (mainly started for tachycardia); furosemide 20 mg daily; Entresto -Follow up in 3-6 mo, sooner if any problem arises Assessment & Plan (11/20/2023 10:13 AM EDT): -Goal BP < 150/90 per JNC-8 and < 130 per ACC/AHA guideline (Treatment threshold >= ) -BP within acceptable range -Continue working on lifestyle modifications -Recommended self-monitoring BP. -Continue current medications: Metoprolol succinate 25 mg daily (mainly started for tachycardia) -Follow up in 3-6 mo, sooner if any problem arises Assessment & Plan (08/09/2023 4:54 AM EDT): -Goal BP < 150/90 per JNC-8 and < 130 per ACC/AHA guideline (Treatment threshold >= ) -BP within acceptable range -Continue working on lifestyle modifications -Recommended self-monitoring BP. -Continue current medications: Metoprolol succinate 25 mg daily (mainly started for tachycardia) -Follow up in 3-6 mo, sooner if any problem arises Assessment & Plan (03/30/2023 6:29 AM EST): -Goal BP < 150/90 per JNC-8 and < 130 per ACC/AHA guideline (Treatment threshold >= ) -BP within acceptable range -Continue working on lifestyle modifications -Recommended self-monitoring BP. -Continue current medications: Metoprolol succinate 25 mg daily (mainly started for tachycardia) -Follow up in 3-6 mo, sooner if any problem arises Assessment & Plan (08/03/2022 10:32 AM EDT): BP at goal today Prediabetes 08/03/2022 Assessment & Plan (04/02/2024 11:48 AM EST): - A1C 6.1% on 04/05/23 - Continue working on lifestyle modifications Assessment & Plan (11/20/2023 10:23 AM EDT): - A1C 6.1% on 04/05/23 - Continue working on lifestyle modifications Assessment & Plan (08/09/2023 5:24 AM EDT): - A1C 6.1% on 04/05/23 - Continue working on lifestyle modifications Elevated PSA 04/21/2022 Assessment & Plan (04/02/2024 11:47 AM EST): - 08/29/22 [facility] biopsy pathology report - BPH. Commented as below: Basal cell hyperplasia and areas with urothelium are seen in multiple biopsies (A, E, H for example). The atypical focus in part C lacks basal cells but doesn't have any racemase immunoreactivity - nevertheless, it's very worrisome for carcinoma. - continue following with urologist Assessment & Plan (11/20/2023 10:22 AM EDT): - 08/29/22 [facility] biopsy pathology report - BPH. Commented as below: Basal cell hyperplasia and areas with urothelium are seen in multiple biopsies (A, E, H for example). The atypical focus in part C lacks basal cells but doesn't have any racemase immunoreactivity - nevertheless, it's very worrisome for carcinoma. - continue following with urologist Assessment & Plan (08/11/2023 6:13 PM EDT): - most recent PSA 20 on 03/22/23 - 08/29/22 [facility] biopsy pathology report - BPH. Commented as below: Basal cell hyperplasia and areas with urothelium are seen in multiple biopsies (A, E, H for example). The atypical focus in part C lacks basal cells but doesn't have any racemase immunoreactivity - nevertheless, it's very worrisome for carcinoma. - continue following with urologist Assessment & Plan (04/01/2023 6:08 AM EST): - most recent PSA 20 on 03/22/23 - 08/29/22 [facility] biopsy pathology report - BPH. Commented as below: Basal cell hyperplasia and areas with urothelium are seen in multiple biopsies (A, E, H for example). The atypical focus in part C lacks basal cells but doesn't have any racemase immunoreactivity - nevertheless, it's very worrisome for carcinoma. - continue following with urologist Assessment & Plan (08/03/2022 10:32 AM EDT): Last PSA 11 in April 2021 --Patient is anticipating a biopsy on 04/25/22 but was canceled. --Patient is now scheduled on 08/29/22 for Biopsy Assessment & Plan (04/21/2022 9:28 AM EST): Last PSA 11 in April 2021 --Patient is anticipating a biopsy on 04/25/22. Lung nodules 04/21/2022 Assessment & Plan (04/02/2024 11:46 AM EST): -05/28/[address] - Emphysema. biapical pleural and parenchymal scarring. Interval increase in RUL nodule, 2x5mm. New scattered numerous other ground glass attenuation in the lungs, ?pneumonitis. Replaced R subclavian a. ?wall-thickening of esophagus -10/11/[address] - Emphysema. Multiple nodules unchanged. 0.5 x 0.2 cm nodule in RUL. -03/09/[address] - Severe emphysema. Stable biapical pleural and parenchymal scarring, right greater than left. Stable small pulmonary nodules, largest measuring 2 x 5 mm in the right upper lobe. Mild to moderate coronary artery calcification. Esophageal hernia. -Feb [address] showed stable pulmonary nodules b/l. Repeat in 1 year. -02/10/[address] showed: Centrilobular and paraseptal emphysema with bilateral apical parenchymal scarring; no pulmonary nodules, mass or consolidation; moderate-sized hiatal hernia; Cholelithiasis; subpleural reticular thickening and patchy ground-glass opacity right upper lobe, left upper lobe and right lower lobe. -recently seen by electric switch repairer. Because there was no pulmonary nodule, surveillance CT scan seemed to be discontinued. Assessment & Plan (11/20/2023 10:12 AM EDT): -05/28/[address] - Emphysema. biapical pleural and parenchymal scarring. Interval increase in RUL nodule, 2x5mm. New scattered numerous other ground glass attenuation in the lungs, ?pneumonitis. Replaced R subclavian a. ?wall-thickening of esophagus -10/11/[address] - Emphysema. Multiple nodules unchanged. 0.5 x 0.2 cm nodule in RUL. -03/09/[address] - Severe emphysema. Stable biapical pleural and parenchymal scarring, right greater than left. Stable small pulmonary nodules, largest measuring 2 x 5 mm in the right upper lobe. Mild to moderate coronary artery calcification. Esophageal hernia. -Feb [address] showed stable pulmonary nodules b/l. Repeat in 1 year. -02/10/[address] showed: Centrilobular and paraseptal emphysema with bilateral apical parenchymal scarring; no pulmonary nodules, mass or consolidation; moderate-sized hiatal hernia; Cholelithiasis; subpleural reticular thickening and patchy ground-glass opacity right upper lobe, left upper lobe and right lower lobe. -recently seen by electric switch repairer. Because there was no pulmonary nodule, surveillance CT scan seemed to be discontinued. Assessment & Plan (08/09/2023 4:53 AM EDT): -05/28/[address] - Emphysema. biapical pleural and parenchymal scarring. Interval increase in RUL nodule, 2x5mm. New scattered numerous other ground glass attenuation in the lungs, ?pneumonitis. Replaced R subclavian a. ?wall-thickening of esophagus -10/11/[address] - Emphysema. Multiple nodules unchanged. 0.5 x 0.2 cm nodule in RUL. -03/09/[address] - Severe emphysema. Stable biapical pleural and parenchymal scarring, right greater than left. Stable small pulmonary nodules, largest measuring 2 x 5 mm in the right upper lobe. Mild to moderate coronary artery calcification. Esophageal hernia. -Feb [address] showed stable pulmonary nodules b/l. Repeat in 1 year. -02/10/[address] showed: Centrilobular and paraseptal emphysema with bilateral apical parenchymal scarring; no pulmonary nodules, mass or consolidation; moderate-sized hiatal hernia; Cholelithiasis; subpleural reticular thickening and patchy ground-glass opacity right upper lobe, left upper lobe and right lower lobe. -recently seen by electric switch repairer. Because there was no pulmonary nodule, surveillance CT scan seemed to be discontinued. Assessment & Plan (04/01/2023 6:47 AM EST): -05/28/[address] - Emphysema. biapical pleural and parenchymal scarring. Interval increase in RUL nodule, 2x5mm. New scattered numerous other ground glass attenuation in the lungs, ?pneumonitis. Replaced R subclavian a. ?wall-thickening of esophagus -10/11/[address] - Emphysema. Multiple nodules unchanged. 0.5 x 0.2 cm nodule in RUL. -03/09/[address] - Severe emphysema. Stable biapical pleural and parenchymal scarring, right greater than left. Stable small pulmonary nodules, largest measuring 2 x 5 mm in the right upper lobe. Mild to moderate coronary artery calcification. Esophageal hernia. -Feb [address] showed stable pulmonary nodules b/l. Repeat in 1 year. -02/10/[address] showed: Centrilobular and paraseptal emphysema with bilateral apical parenchymal scarring; no pulmonary nodules, mass or consolidation; moderate-sized hiatal hernia; Cholelithiasis; subpleural reticular thickening and patchy ground-glass opacity right upper lobe, left upper lobe and right lower lobe. -recently seen by electric switch repairer. Because there was no pulmonary nodule, surveillance CT scan seemed to be discontinued. Assessment & Plan (04/22/2022 11:39 AM EST): -05/28/[address] - Emphysema. biapical pleural and parenchymal scarring. Interval increase in RUL nodule, 2x5mm. New scattered numerous other ground glass attenuation in the lungs, ?pneumonitis. Replaced R subclavian a. ?wall-thickening of esophagus -10/11/[address] - Emphysema. Multiple nodules unchanged. 0.5 x 0.2 cm nodule in RUL. -03/09/[address] - Severe emphysema. Stable biapical pleural and parenchymal scarring, right greater than left. Stable small pulmonary nodules, largest measuring 2 x 5 mm in the right upper lobe. Mild to moderate coronary artery calcification. Esophageal hernia. -Feb [address] showed stable pulmonary nodules b/l. Repeat in 1 year. -04/13/[address] showed: 1. Centrilobular and paraseptal emphysema with bilateral apical parenchymal scarring. There are no pulmonary nodules, mass or consolidation. 2. Moderate-sized hiatal hernia. 3. Cholelithiasis. 4. There are subpleural reticular thickening and patchy ground-glass opacity right upper lobe, left upper lobe and right lower lobe. - Continue annual chest CT Venous insufficiency 04/21/2022 Assessment & Plan (11/20/2023 10:13 AM EDT): -s/p right great saphenous venous ablation by Dr. Galindo on 10/30/20 -s/p left GSV venous ablation on 01/01/21 -DASH diet -compression stocking Assessment & Plan (08/09/2023 4:54 AM EDT): s/p right great saphenous venous ablation by Dr. Galindo on 10/30/20 -s/p left GSV venous ablation on 01/01/21 -DASH diet -compression stocking Assessment & Plan (03/30/2023 6:24 AM EST): s/p right great saphenous venous ablation by Dr. Galindo on 10/30/20 -s/p left GSV venous ablation on 01/01/21 -DASH diet -compression stocking Assessment & Plan (04/21/2022 9:23 AM EST): s/p right great saphenous venous ablation by Dr. Galindo on 10/30/20 -s/p left GSV venous ablation on 01/01/21 -DASH diet -compression stocking Heart failure with reduced ejection fraction Assessment & Plan (04/06/2024 7:07 AM EST): -Change Control Specialist: RADHA, last seen in July 2023 -nuclear stress test in June 2021 which was not diagnostic for ischemia -09/08/21 TTE Moderate global hypokinesis. LVEF 30-35%. Moderate aortic regurgitation. -07/05/22 Echocardiogram results showed EF 25-30%. LV size and wall thickness are normal. Mid to distal, anterior, anteroseptal, and apical espino are akinetic. Mild aortic regurgitation. -07/04/23 echocardiogram: Mod global hypokynesis. [id number]%. Mild-to-mod aortic regurgitation. No . Mild thickening of anterior and posterior mitral valve leaflets. No pulmonary hypertension. -current medications: Entresto 49 mg-51 mg BID, aspirin 81 mg daily; metoprolol succinate 25 mg daily; furosemide 20 mg daily - Patient was evaluated for ICD / BiV Devices. Currently still being an option, but not urgent per locker operator. Reassess in 6 mo follow up and 12-mo TTE per locker operator. - Continuing optimizing risk factor management, medication adherence, and working on lifestyle modifications - Psychiatric medications cause prolonged QT. Monitor closely. Assessment & Plan (11/20/2023 10:15 AM EDT): -Change Control Specialist: RADHA, last seen on 07/12/22. -nuclear stress test in June 2021 which was not diagnostic for ischemia -09/08/21 TTE Moderate global hypokinesis. LVEF 30-35%. Moderate aortic regurgitation. -07/05/22 Echocardiogram results showed EF 25-30%. LV size and wall thickness are normal. Mid to distal, anterior, anteroseptal, and apical espino are akinetic. Mild aortic regurgitation. -07/04/23 echocardiogram: Mod global hypokynesis. [id number]%. Mild-to-mod aortic regurgitation. No . Mild thickening of anterior and posterior mitral valve leaflets. No pulmonary hypertension. -current medications: Entresto 49 mg-51 mg BID, aspirin 81 mg daily; metoprolol succinate 25 mg daily - Patient was evaluated for ICD / BiV Devices. Currently still being an option, but not urgent per locker operator. Reassess in 6 mo follow up and 12-mo TTE per locker operator. - Continuing optimizing risk factor management, medication adherence, and working on lifestyle modifications - Psychiatric medications cause prolonged QT. Monitor closely. Assessment & Plan (08/09/2023 4:53 AM EDT): -Change Control Specialist: RADHA, last seen on 07/12/22. -nuclear stress test in June 2021 which was not diagnostic for ischemia -09/08/21 TTE Moderate global hypokinesis. LVEF 30-35%. Moderate aortic regurgitation. -07/05/22 Echocardiogram results showed EF 25-30%. LV size and wall thickness are normal. Mid to distal, anterior, anteroseptal, and apical espino are akinetic. Mild aortic regurgitation. -current medications: Entresto 49 mg-51 mg BID, aspirin 81 mg daily; metoprolol succinate 25 mg daily - Patient was evaluated for ICD / BiV Devices. Currently still being an option, but not urgent per locker operator. Reassess in 6 mo follow up and 12-mo TTE per locker operator. - Continuing optimizing risk factor management, medication adherence, and working on lifestyle modifications - Psychiatric medications cause prolonged QT. Monitor closely. Assessment & Plan (03/30/2023 6:30 AM EST): -Change Control Specialist: RADHA, last seen on 07/12/22. -nuclear stress test in June 2021 which was not diagnostic for ischemia -09/08/21 TTE Moderate global hypokinesis. LVEF 30-35%. Moderate aortic regurgitation. -07/05/22 Echocardiogram results showed EF 25-30%. LV size and wall thickness are normal. Mid to distal, anterior, anteroseptal, and apical espino are akinetic. Mild aortic regurgitation. -current medications: Entresto 49 mg-51 mg BID, aspirin 81 mg daily; metoprolol succinate 25 mg daily - Patient was evaluated for ICD / BiV Devices. Currently still being an option, but not urgent per locker operator. Reassess in 6 mo follow up and 12-mo TTE per locker operator. - Continuing optimizing risk factor management, medication adherence, and working on lifestyle modifications - Psychiatric medications cause prolonged QT. Monitor closely. Assessment & Plan (08/05/2022 11:37 AM EDT): -Change Control Specialist: RADHA, last seen on 07/12/22. -nuclear stress test in June 2021 which was not diagnostic for ischemia -09/08/21 TTE Moderate global hypokinesis. LVEF 30-35%. Moderate aortic regurgitation. -07/05/22 Echocardiogram results showed EF 25-30%. LV size and wall thickness are normal. Mid to distal, anterior, anteroseptal, and apical espino are akinetic. Mild aortic regurgitation. -current medications: Entresto 49 mg-51 mg BID, aspirin 81 mg daily - Patient was evaluated for ICD / BiV Devices. Currently still being an option, but not urgent per locker operator. Reassess in 6 mo follow up and 12-mo TTE per locker operator. - Continuing optimizing risk factor management, medication adherence, and working on lifestyle modifications - Psychiatric medications cause prolonged QT. Monitor closely. Assessment & Plan (06/29/2022 12:42 PM EDT): Most likely triggered by UTI EKG showed LV strain, hemodynamically stable. Order BMP and BNP Continue same meds for now, fu with cardiology in 2d (appt made and given to patient). Patient agreed to Biventricular pacemaker if needed. Go to ED if worsening SOB, onset of CP, cant eat or urinate. Assessment & Plan (04/21/2022 9:32 AM EST): -09/08/21 TTE Moderate global hypokinesis. LVEF 30-35%. Moderate aortic regurgitation. -Echocardiogram on 06/28/21 showed EF 30% -current medications: Entresto 49 mg-51 mg BID, aspirin 81 mg daily -Patient is now interested in ICD or BiV Devices -Change Control Specialist: RADHA, last seen on 11/24/21 and 12/29/21. Referred for biventricular device placement evaluation. Pt declined ICD or BiV devices. Continuing medical management with Entresto. -nuclear stress test in June 2021 which was not diagnostic for ischemia -due to his low EF, pacemaker may be indicated -follow-up with locker operator as scheduled -continue working on lifestyle modifications / risk factor management / medication adherence -psychiatric medication also causes prolonged QT. PCP requested his psychiatrist to review his medications and adjust if possible Benign prostatic hyperplasia 10/27/2015 Assessment & Plan (04/06/2024 6:49 AM EST): -followed by Urologist, Dr. Molina for PSA/BPH, last seen in Dec 2023. -Most Recent Prostate MRI on 06/18/21 showed PI-RADS 4, lesion in the left posterior lateral prostate. -08/29/22 [facility] biopsy pathology report - BPH. Commented as below: Basal cell hyperplasia and areas with urothelium are seen in multiple biopsies (A, E, H for example). The atypical focus in part C lacks basal cells but doesn't have any racemase immunoreactivity - nevertheless, it's very worrisome for carcinoma. -last PSA 20 in Oct 2023 -continue tamsulosin, and finasteride Assessment & Plan (11/20/2023 10:23 AM EDT): -followed by Urologist, Dr. Molina for PSA/BPH, last seen in March 2023. -Most Recent Prostate MRI on 06/18/21 showed PI-RADS 4, lesion in the left posterior lateral prostate. -08/29/22 [facility] biopsy pathology report - BPH. Commented as below: Basal cell hyperplasia and areas with urothelium are seen in multiple biopsies (A, E, H for example). The atypical focus in part C lacks basal cells but doesn't have any racemase immunoreactivity - nevertheless, it's very worrisome for carcinoma. -last PSA 20 in Oct 2023 -continue tamsulosin, finasteride, oxybutynin Assessment & Plan (08/09/2023 4:54 AM EDT): -followed by Urologist, Dr. Molina for PSA/BPH, last seen in March 2023. -Most Recent Prostate MRI on 06/18/21 showed PI-RADS 4, lesion in the left posterior lateral prostate. -08/29/22 [facility] biopsy pathology report - BPH. Commented as below: Basal cell hyperplasia and areas with urothelium are seen in multiple biopsies (A, E, H for example). The atypical focus in part C lacks basal cells but doesn't have any racemase immunoreactivity - nevertheless, it's very worrisome for carcinoma. -last PSA 20 in Mar 2023 -continue tamsulosin, finasteride, oxybutynin Assessment & Plan (04/01/2023 6:09 AM EST): -followed by UrologistDr. Molina for PSA/BPH, last seen in March 2023. -Most Recent Prostate MRI on 06/18/21 showed PI-RADS 4, lesion in the left posterior lateral prostate. -08/29/22 [facility] biopsy pathology report - BPH. Commented as below: Basal cell hyperplasia and areas with urothelium are seen in multiple biopsies (A, E, H for example). The atypical focus in part C lacks basal cells but doesn't have any racemase immunoreactivity - nevertheless, it's very worrisome for carcinoma. -last PSA 20 in Mar 2023 -continue tamsulosin, finasteride, oxybutynin Assessment & Plan (08/03/2022 10:22 AM EDT): -followed by UrologistDr. Molina for PSA/BPH, last seen on 07/14/22. -Most Recent Prostate MRI on 06/18/21 showed PI-RADS 4, lesion in the left posterior lateral prostate. -last PSA 11 in 04/2021 -Patient is scheduled for a biopsy on 04/25/22which was canceled. Patient is scheduled for biopsy on 08/29/22 at 7:00am -continue tamsulosin, finasteride, oxybutynin Assessment & Plan (04/22/2022 11:41 AM EST): -followed by Urologist, Dr. Molina for PSA/BPH, last seen on 02/16/22. -Most Recent Prostate MRI on 06/18/21 showed PI-RADS 4, lesion in the left posterior lateral prostate. -last PSA 11 in 04/2021 -Patient is scheduled for a biopsy on 04/25/22. 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 10/27/2015 Assessment & Plan (04/06/2024 6:51 AM EST): - previously on oxybutynin, which was discontinued due to his age and concern about anticholinergic effect on his cognition Opioid use disorder in remission 06/01/2015 Assessment & Plan (04/22/2022 11:23 AM EST): - long-term remission - previously on buprenorphine - continue current recovery support Tobacco dependence syndrome 01/15/2015 Assessment & Plan (04/02/2024 11:48 AM EST): -He stopped smoking in July 2023 -continue current effort to remain a non-smoker Assessment & Plan (11/20/2023 10:24 AM EDT): -He stopped smoking in July 2023 -continue current effort to remain a non-smoker Assessment & Plan (08/11/2023 6:16 PM EDT): -He stopped smoking -continue current effort to remain a non-smoker Assessment & Plan (08/05/2022 10:22 AM EDT): -He has been trying to quit smoking, he is now using a nicotine patch -continue working on smoking cessation Assessment & Plan (04/21/2022 9:18 AM EST): Patient quit smoking, he is now using a nicotine patch -continue smoking cessation Biliary calculus 05/06/2014 Assessment & Plan (11/20/2023 10:21 AM EDT): - history of obstructive jaundice / choledocholithiasis in Jan 2020 - ERCP with sphincterotomy and extraction of common bile duct stone by Dr. Berger on 02/10/20. - Patient declined elective cholecystectomy Osteoporosis 05/06/2014 Assessment & Plan (04/06/2024 6:51 AM EST): - Risk factors: frequent prednisone use; tobacco use; age - DEXA in 2010 showed osteoporosis, but patient did not start Tx - DEXA on 04/20/23 showed osteoporosis in spine with T-score -2.6 - Started on alendronate since Apr 2023 - Continue weight bearing exercise - Ensure adequate calcium and vitamin D intake Assessment & Plan (11/20/2023 10:23 AM EDT): - Risk factors: frequent prednisone use; tobacco use; age - DEXA in 2010 showed osteoporosis, but patient did not start Tx - DEXA on 04/20/23 showed osteoporosis in spine with T-score -2.6 - Started on alendronate since Apr 2023 - Continue weight bearing exercise - Ensure adequate calcium and vitamin D intake Assessment & Plan (08/09/2023 5:17 AM EDT): - Risk factors: frequent prednisone use; tobacco use; age - DEXA in 2010 showed osteoporosis, but patient did not start Tx - DEXA on 04/20/23 showed osteoporosis in spine with T-score -2.6 - Started on alendronate since Apr 2023 - Continue weight bearing exercise - Ensure adequate calcium and vitamin D intake Assessment & Plan (04/01/2023 6:42 AM EST): - last DEXA scan in 2010 showing osteoporosis - Continue weight bearing exercise - Ensure adequate calcium and vitamin D intake - Risk factors: frequent prednisone use; tobacco use; age - will update DEXA Dyslipidemia 02/15/2012 Assessment & Plan (04/06/2024 6:56 AM EST): - current medication: Atorvastatin 20 mg at bedtime and omega 3 due to Triglyceride - last lab in July 2023 showed significantly elevated TG - Continue working on lifestyle modifications - Check lab, if no improvement, consider increasing atorvastatin - Consider intensifying statin therapy and/or changing Paradox 3 to icosapent ethyl. Assessment & Plan (11/20/2023 10:28 AM EDT): - current medication: Atorvastatin 20 mg at bedtime and omega 3 due to Triglyceride > 600 - last lab in July 2023 showed significantly elevated TG - Continue working on lifestyle modifications - Check lab, if no improvement, consider increasing atorvastatin Assessment & Plan (08/11/2023 6:15 PM EDT): - current medication: Atorvastatin 20 mg at bedtime and omega 3 due to Triglyceride > 600 - last lab in Apr 2023 showed significantly elevated TG - Continue working on lifestyle modifications - Check lab, if no improvement, consider increasing atorvastatin Assessment & Plan (03/30/2023 6:26 AM EST): - current medication: Atorvastatin 20 mg at bedtime - last lab 04/21/22 TC 185; TG 557; HDL 31; LDL unable to be calculated due to elevated Triglyceride - Continue working on lifestyle modifications - Consider increasing atorvastatin, but pt is >79 yo. Will review its benefit. - Repeat lipid profile in 3 mo. Assessment & Plan (08/03/2022 10:23 AM EDT): - current medication: Atorvastatin 20 mg at bedtime - last lab 04/21/22 TC 185; TG 557; HDL 31; LDL unable to be calculated due to elevated Triglyceride - Continue working on lifestyle modifications - Consider increasing atorvastatin, but pt is >79 yo. Will review its benefit. - Repeat lipid profile in 3 mo. Assessment & Plan (04/22/2022 11:30 AM EST): - current medication: Atorvastatin 20 mg at bedtime - last lab 04/21/22 Total cholesterol 185; TG 557; HDL 31; LDL unable to be calculated - Continue working on lifestyle modifications - Consider increasing atorvastatin, but pt is >79 yo. Will review its benefit. - Repeat lipid profile in 3 mo. Mixed anxiety and depressive disorder 02/15/2012 Assessment & Plan (04/06/2024 7:06 AM EST): -followed by psychiatrist, Dr. Vazquez at [facility] -continue Trazodone, Sertaline and Quetiapine with caution (DDI ? prolonged OTc) - continue animal therapy with dog / attendance officer animal Assessment & Plan (11/20/2023 10:26 AM EDT): -followed by psychiatristDr. Vazquez at [facility] -continue Trazodone, Seroquel and Quetiapine with caution (DDI ? prolonged OTc) -requested psychiatrist to review and adjust medications if possible due to his heart failure. Assessment & Plan (08/05/2022 10:20 AM EDT): -followed by psychiatristDr. Vazquez at [facility] -continue Trazodone, Seroquel and Quetiapine with caution (DDI ? prolonged OTc) -requested psychiatrist to review and adjust medications if possible due to his heart failure. Assessment & Plan (04/21/2022 9:30 AM EST): -followed by psychiatristDr. Vazquez at [facility] -continue Trazodone, Seroquel and Quetiapine with caution (DDI ? prolonged OTc) -requested psychiatrist to review and adjust medications if possible due to his heart failure. 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 Bocanegra in Feb 2024 -Last exacerbation in Nov 2022. Prescribed Augmentin by electric switch repairer. -exacerbation frequency 4 times per year -Hx intubation, mainly for overdose (opioid and BZD) -PFT 03/25/20 Bronchial asthma -continue Fluticasone / umeclidinium / vilanterol as directed -continue theophylline as prescribed -Proper mouth care discussed again -Continue albuterol HFA and nebulizer prn as rescue -Continue smoking cessation effort and maintaining abstinence Assessment & Plan (11/20/2023 10:13 AM EDT): -followed by [facility] electric switch repairer, last seen on 03/23/23. -Last exacerbation in Nov 2022. Prescribed Augmentin by electric switch repairer. -exacerbation frequency 4 times per year -Hx intubation, mainly for overdose (opioid and BZD) -PFT 03/25/20 Bronchial asthma -continue Fluticasone / umeclidinium / vilanterol as directed -continue theophylline as prescribed -Proper mouth care discussed again -Continue albuterol HFA and nebulizer prn as rescue -Work on smoking cessation Assessment & Plan (08/09/2023 4:52 AM EDT): >>ASSESSMENT AND PLAN FOR CHRONIC OBSTRUCTIVE LUNG DISEASE ([facility]) WRITTEN ON 08/03/2022 10:23 AM BY BUTCH REDMOND -followed by [facility] electric switch repairer, last seen on 04/07/22. -Last exacerbation in February 2022, bronchitis exacerbation. Rx azithromycin and annual CT Scan. Pt to continue Anoro and theophylline -Pt had 2 antibiotic courses for aspiration pneumonia in Mar / Apr 2021 and 1 antibiotic / prednisone for COPD exacerbation in May 2021 -exacerbation frequency 5 times per year ([id number]) -Hx intubation, mainly for overdose (opioid and BZD) -PFT 03/25/20 Bronchial asthma -continue Trelegy as directed -continue theophylline as prescribed -Proper mouth care discussed again -Continue albuterol HFA and nebulizer prn as rescue -Work on smoking cessation Assessment & Plan (08/09/2023 4:52 AM EDT): >>ASSESSMENT AND PLAN FOR CHRONIC OBSTRUCTIVE LUNG DISEASE ([facility]) WRITTEN ON 04/01/2023 6:48 AM BY HALLIE CHAVIRA MD -followed by [facility] electric switch repairer, last seen on 03/23/23. -Last exacerbation in Nov 2022. Prescribed Augmentin by electric switch repairer. -exacerbation frequency 4 times per year -Hx intubation, mainly for overdose (opioid and BZD) -PFT 03/25/20 Bronchial asthma -continue Fluticasone / umeclidinium / vilanterol as directed -continue theophylline as prescribed -Proper mouth care discussed again -Continue albuterol HFA and nebulizer prn as rescue -Work on smoking cessation Assessment & Plan (08/11/2023 6:11 PM EDT): -followed by [facility] electric switch repairer, last seen on 03/23/23. -Last exacerbation in Nov 2022. Prescribed Augmentin by electric switch repairer. -exacerbation frequency 4 times per year -Hx intubation, mainly for overdose (opioid and BZD) -PFT 03/25/20 Bronchial asthma -continue Fluticasone / umeclidinium / vilanterol as directed -continue theophylline as prescribed -Proper mouth care discussed again -Continue albuterol HFA and nebulizer prn as rescue -Work on smoking cessation Assessment & Plan (08/09/2023 4:52 AM EDT): >>ASSESSMENT AND PLAN FOR ASTHMA WITH COPD (CHRONIC OBSTRUCTIVE PULMONARY DISEASE) ([facility]) WRITTEN ON 04/21/2022 9:31 AM BY BUTCH REDMOND -followed by [facility] electric switch repairer, last seen on 04/07/22 -Last exacerbation in February 2022, bronchitis exacerbation. Rx azithromycin and annual CT Scan. Pt to continue Anoro and theophylline -Pt had 2 antibiotic courses for aspiration pneumonia in Mar / Apr 2021 and 1 antibiotic / prednisone for COPD exacerbation in May 2021 -exacerbation frequency 5 times per year ([id number]) -Hx intubation, mainly for overdose (opioid and BZD) -PFT 03/25/20 Bronchial asthma -continue Trelegy as directed -continue theophylline as prescribed -Proper mouth care discussed again -Continue albuterol HFA and nebulizer prn as rescue -Work on smoking cessation >>ASSESSMENT AND PLAN FOR CHRONIC OBSTRUCTIVE LUNG DISEASE ([facility]) WRITTEN ON 04/21/2022 9:31 AM BY BUTCH REDMOND -followed by [facility] electric switch repairer, last seen on 04/07/22. -Last exacerbation in February 2022, bronchitis exacerbation. Rx azithromycin and annual CT Scan. Pt to continue Anoro and theophylline -Pt had 2 antibiotic courses for aspiration pneumonia in Mar / Apr 2021 and 1 antibiotic / prednisone for COPD exacerbation in May 2021 -exacerbation frequency 5 times per year ([id number]) -Hx intubation, mainly for overdose (opioid and BZD) -PFT 03/25/20 Bronchial asthma -continue Trelegy as directed -continue theophylline as prescribed -Proper mouth care discussed again -Continue albuterol HFA and nebulizer prn as rescue -Work on smoking cessation Schizophrenia 07/19/2011 Assessment & Plan (04/06/2024 7:05 AM EST): -followed by psychiatristDr. Vazquez at [facility] -continue Trazodone, Sertraline and Quetiapine with caution (DDI ? prolonged OTc) -animal therapy with dog has been effective. Letter for attendance officer animal / therapy animal was signed and given to the patient. Assessment & Plan (11/20/2023 10:24 AM EDT): -followed by psychiatristDr. Vazquez at [facility] -continue Trazodone, Seroquel and Quetiapine with caution (DDI ? prolonged OTc) -requested psychiatrist to review and adjust medications if possible due to his heart failure. Assessment & Plan (08/09/2023 4:56 AM EDT): -followed by psychiatristDr. Vazquez at [facility] -continue Trazodone, Seroquel and Quetiapine with caution (DDI ? prolonged OTc) -requested psychiatrist to review and adjust medications if possible due to his heart failure. Assessment & Plan (08/05/2022 10:20 AM EDT): -followed by psychiatrDr. Taylor castañeda at [facility] -continue Trazodone, Seroquel and Quetiapine with caution (DDI ? prolonged OTc) -requested psychiatrist to review and adjust medications if possible due to his heart failure. Resolved Problems Problem Noted Date Diagnosed Date Resolved Date Chronic anemia 08/04/2023 04/06/2024 Dyspnea on exertion 08/04/2023 11/20/19 Colon cancer screening 08/04/202311/17 Smoker 08/04/2023 04/06/2024 COPD exacerbation 08/04/2023 08/09/2023 Preoperative examination 08/03/202206/2022 Assessment & Plan (08/05/2022 10:20 AM EDT): - Patient is scheduled for a low-intermittent risk procedure. Patient is considered moderate to high risk patient. His functional level is 3-4 METs. Pt was already seen by his electric switch repairer and locker operator again in July 2022, and was cleared by both specialists. He will proceed to biopsy without further risk factor management. Patient and caregiver were instructed to follow instructions given by Urologist for perioperative care. Glucosuria 06/29/2022 08/03/2022 Dizzy 06/29/2022 08/03/2022 Assessment & Plan (06/29/2022 12:44 PM EDT): Has hyperglycemia/glucosuria. RO DM FU w PCP Spoke with [facility], no fgtsk check at home Check A1c today and fu w PCP Acute pyelonephritis 06/29/2022 023 Assessment & Plan (06/29/2022 12:43 PM EDT): Bactrim x 7d Increase water intake, avoid salt or high Na content fluids (sodas). FU w urology due to BPH. Elevated TSH 04/21/2022 11/20/2023 Assessment & Plan (08/05/2022 10:21 AM EDT): -On theophylline -Most recent lab was normal -Continue periodic monitoring Assessment & Plan (04/22/2022 11:32 AM EST): -On theophylline -Continue periodic monitoring Encounters Date Type Department Care Team Description 06/05/2024 Refill [facility] [address], [place] [phone] Hallie Chavira MD Anemia, unspecified type; Hyperlipidemia, unspecified 06/04/2024 Telephone [facility] [address] [place] [address] Hallie Chavira MD Prior Auth DME 05/31/2024 Telephone [facility] [place] [address] Hallie Chavira MD Durable Medical Equipment 05/28/2024 Orders Only GENERIC EXTERNAL DATA DEPARTMENT Provider, Generic External Data 05/22/2024 Refill [facility] [place] [address] Hallie Chavira MD 05/20/2024 Telephone [facility] [place] [address] Hallie Chavira MD Medication Question 05/14/2024 Refill [facility] [place] [address] Hallie Chavira MD 05/08/2024 Refill [facility] [place] [address] Hallie Chavira MD Anemia, unspecified type; Hyperlipidemia, unspecified 04/10/2024 10:20 AM EST Immunization [facility] [place] [address] Tuyet Sung LPN Encounter for immunization (Primary Dx) 04/10/2024 Travel 04/05/2024 Orders Only [facility] [place] [address] Hallie Chavira MD 04/05/2024 Refill [facility] [place] [address] Hallie Chavira MD Anemia, unspecified type; Hyperlipidemia, unspecified 04/02/2024 11:15 AM EST Office Visit [facility] [place] [address] Hallie Chavira MD 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) (CMS/HCC) (Primary Dx); Chronic obstructive pulmonary disease, unspecified COPD type (CMS/HCC); Lung nodules; Pulmonary fibrosis (CMS/HCC); Primary hypertension; Heart failure with reduced ejection fraction (CMS/HCC); Urinary incontinence due to benign prostatic hyperplasia; Elevated PSA; Benign prostatic hyperplasia with nocturia; Prediabetes; Tobacco dependence syndrome; Dyslipidemia; Mixed anxiety and depressive disorder; Schizophrenia, unspecified type ([facility]); Osteoporosis, unspecified osteoporosis type, unspecified pathological fracture presence; Hypertriglyceridemia 04/02/2024 Orders Only [facility] [address] [place] [address] Hallie Chavira MD 04/02/2024 Travel 03/31/2024 Refill [facility] [address] [place] [address] Hallie Chavira MD Constipation, unspecified constipation type 03/29/2024 Telephone [facility] [address] [place] [address] Ester Liriano MA chart prep 03/27/2024 Refill [facility] [address] [place] [address] Hallie Chavira MD Vitamin deficiency 03/20/2024 Telephone [facility] [address] [place] [address] Ester Liriano MA dme boost 03/18/2024 Refill [facility] [address] [place] [address] Hallie Chavira MD from Last 3 Months Immunizations Name Administration Dates Next Due Hep A, Adult 08/15/2018,02/14/2018 Hep B, adult 08/03/2022,06/29/2010,05/04/2009 Influenza High-dose Quadriva lent Preservative Free 01/07/2021 Influenza injectable quadriv alent IIV4 with preservative 03/22/2017,01/21/2016,12/30/2014 Influenza injectable quadriv alent preservative free 03/30/2023,04/14/2022,05/06/2014 Influenza, High Dose Seasona l, Preservative Free 01/03/2024,11/26/2018,12/06/2017 Influenza, IIV3, injectable 11/10/2010, 0,01/08/2003 Influenza, Split (incl. cynthia fied surface antigen) 12/18/2014,12/27/2011 Pfizer Covid-19 Vaccine 12+ 04/10/2024, Pfizer Covid-19 Vaccine 12+ Bivalent 03/21/2022 Pneumococcal Conjugate PCV 13 01/21/2016 Pneumococcal Polysaccharide PPSV23 11/13/2018,,04/28/2000 RSV Bivalent 08/15/2023 TD (adult), 2 Lf tetanus tox oid, preservative free, adsorbed 07/14/2010,04/28/2000 Tdap 08/03/2022,04/11/2012 Zoster, Recombinant 02/19/2020,12/18/2019 Zoster, live 01/21/2016 Social History Tobacco Use Types Packs/Day Years Used Date Smoking Tobacco: Former Cigarettes Passive Smoke Exposure: Current Smokeless Tobacco: Never Tobacco Cessation:Counseling Given: Not Answered Alcohol Use Standard Drinks/Week Comments Not Currently [...] Orientation Straight 01/10/2022 10 :15 AM EDT Last Filed Vital Signs Vital Sign Reading Time Taken Comments Blood Pressure 112/68 04/02/2024 11:12 AM EST Pulse 96 04/02/2024 11:12 AM EST Temperature 36.3 ??C (97.3 ??F) 04/02/2024 11:[address] Respiratory Rate 17 04/02/2024 11:12 AM EST Oxygen Saturation 97% 04/02/2024 11:12 AM EST Inhaled Oxygen Concentration - - Weight 85 kg (187 lb 6.4 oz) 04/02/2024 11:12 AM EST Height 165.1 cm (5' 5 ) 03/30/2023 11:31 AM EST Body Mass Index 31.18 03/30/2023 11:31 AM EST Plan of Treatment Upcoming Encounters Date Type Department Care Team (Late st Contact Info) Description 07/22/2024 9:30 AM EDT Office Visit [facility] [address], [place] [phone] Hallie Chavira MD [address] [place], [place] [phone] Health Maintenance Due Date Last Done Comments SDOH Screening 07/27/2024 07/28/2023 Depression Screening 11/19/2024 11/20/2023, 11/20/19 Alcohol/Substance Use Screening 04/02/2025 04/02/2024 Diabetes: Hemoglobin A1C 04/02/2025 025, 04/05/2023, 12/13/2022, Additional history exists Tobacco Screening 04/02/2025 04/02/2024 Lipid Panel 04/02/2029 04/02/2024, 03/14, 08/09/2023, Additional history exists DTaP/Tdap/Td Vaccines (3 - Td or Tdap) 08/03/2032 08/03/2022, 04/11/2012, 07/14/2010, Additional history exists Hepatitis A Vaccines Aged Out 08/15/2018, 02/15/20 18 No longer eligible based on patient's age to complete this topic Pneumococcal Vaccine: 50+ Years Completed 11/13/2018, 03/22/2017, 01/21/2016, Additional history exists Zoster Vaccines Completed 02/19/2020, 09/2019, 01/21/2016 Hepatitis B Vaccines Completed 08/03/2022, 06/29/2010, 05/04/2009 RSV Patients and Patients Aged 60 years or older Completed 08/15/2023 Influenza Vaccine Completed 01/03/2024, , 04/14/2022, Additional history exists COVID-19 Vaccine Completed 04/10/2024, , 03/21/2022, Additional history exists HIB Vaccines Aged Out No longer eligi ble based on patient's age to complete this topic HPV Vaccines Aged Out No longer eligi ble based on patient's age to complete this topic IPV Vaccines Aged Out No longer eligi ble based on patient's age to complete this topic Meningococcal Vaccine Aged Out No carri konrad eligible based on patient's age to complete this topic RSV under 20 months Aged Out No longe r eligible based on patient's age to complete this topic Rotavirus Vaccines Aged Out No longer eligible based on patient's age to complete this topic Procedures Procedure Name Priority Date/Time Associated Diagnosis Comments PSA, TOTAL WITH REFLEX TO PSA, FREE Routine 05/28/2024 9:11 AM EDT DIRECT LDL Routine 04/02/2024 4:24 PM EST LIPID PANEL WITH REFLEX TO DIRECT LDL Routine 04/02/2024 12:10 PM EST Primary hypertension COMPREHENSIVE METABOLIC PANEL Routine 04/02/2024 12:10 PM EST Primary hypertension HEMOGLOBIN A1C Routine 04/02/2024 12:10 PM EST Screening for diabetes mellitus from Last 3 Months Results * (ABNORMAL) PSA, Total With Reflex to PSA, Free (05/28/2024 9:11 AM EDT) PSA,Total (Free>4and<10) 30.60(H ) 0.00 - 4.00 ng/mL [facility] Comment:A Free PSA was not p erformed: The percentage of Free PSA can be used to enhance the differentiation of prostate cancer from benign prostatic disease in subjects whose PSA levels are between 4.0 and 10.0 ng/mL. For subjects whose PSA levels are below 4.0 or above 10.0 ng/mL, the risk of prostate cancer is determined on the basis of the PSA alone. Therefore the % Free PSA is recommended only for those subjects whose PSA levels are between 4.0 and 10.0 ng/mL.PSA methodology: [place] [employer] i ChemiluminescentMicroparticle Immunoassay (CMIA) 05/28/2024 9:11 AM EDT 05/28/2024 9:11 AM EDT us Generic External Data Provider LAB BLOOD ORDERAB LES Final Result Performing Organization Address [facility] Co de Phone Number [facility] [address] [place] [phone] * Direct LDL (04/02/2024 4:24 PM EST) LDL Direct 67 <100 mg/dL [facility] Comment:Greatly elevated Tri glycerides values (>1200 mg/dL)interfere with the dLDL assay.Desirable range <100 mg/dL for primary prevention;<70 mg/dL for patients with CHD or diabetic patientswith > or = 2 CHD risk factors.THIS TEST WAS PERFORMED AT:[employer] [place] [id number] PALOMARES MD 04/02/2024 4:24 PM EST 04/02/2024 4:24 PM EST us Hallie Chavira MD LAB BLOOD ORDERABLES Final Resul t Performing Organization Address [facility] Co de Phone Number [facility] [address] [place] [phone] * (ABNORMAL) Lipid Panel with Reflex to Direct LDL (04/02/2024 12:10 PM EST) Triglycerides 482(H) <150 mg/dL [facility] Comment:Desirable Triglyceri de: less than 150 mg/dLBorderline High Triglyceride 150-199 mg/dLHigh Triglyceride: 200-499 mg/dLVery High Triglyceride: greater than or equal to 5OO mg/dL Cholesterol 166 <200 mg/dL [facility] Comment:Desirable Cholestero l: less than 200 mg/dLBorderline High Cholesterol: 200-239 mg/dLHigh Cholesterol: greater than 239 mg/dL LDL Cholesterol Calculated TNP <100 mg/dL [facility] Comment:Unable to calculate the LDL. The formula of Friedwald,Dave, and Abad is only valid if the triglycerides areless than 400 mg/dl. HDL Cholesterol 38(L) >40 mg/dL [facility] Comment:Desirable HDL: great er than 40 mg/dL Note: This HDL assay may give artificially low results in patients with liver disease. Blood 04/02/2024 12:1 0 PM EST 04/02/2024 1:38 PM EST Hallie Chavira MD LAB BLOOD ORDERABLES Final Resul t [facility] [address] [place] [phone] * Hemoglobin A1c (04/02/2024 12:10 PM EST) Hemoglobin A1c 5.7 <6.0 % [facility] Comment:Hemoglobin A1C Refer ence Range Adults: 4.8 - 6.0 % Non diabetic: < 6.0 % Goal: < 7.0 %Additional Action Suggested: > 8.0 %Note: Hemoglobin A1c results are invalid for patients with abnormal amounts of HbF. Blood transfusions may impact the HbA1c concentration in the patient sample. Estimated Average Glucose 117 mg/dL [facility] Comment:eAG = Estimated ave rage glucose which is %A1C expressed asaverage glucose, using the formula of the F4U-IdhpmysKrgzlmn Glucose study (ADAG), Diabetes Care, Vol.31,#8,Oct. 2007 Blood Venous blood specimen / Unknown 04/02/2024 12:10 PM EST 04/02/2024 1:38 PM EST Hallie Chavira MD LAB BLOOD ORDERABLES Final Resul t Performing Organization Address [facility]/ZIP Co de Phone Number [facility] [address] [place] [phone] * (ABNORMAL) Comprehensive Metabolic Panel (04/02/2024 12:10 PM EST) Sodium 139 135 - 145 mmol/L [facility] Potassium 3.9 3.3 - 5.1 mmol/L [facility] Chloride 108 96 - 108 mmol/L [facility] Carbon Dioxide 26 22 - 29 mmol/L [facility] Anion Gap 9(L) 12 - 20 [facility] Urea Nitrogen (BUN) 17(H) 9 - 16 mg/dL [facility] Creatinine, Serum 0.96 0.5 - 1.4 mg/dL [facility] Estimated Glomerular Filt Rate >60 [facility] Comment:Chronic Kidney Disea se: Estimated GFR < 60 mL/min/1.24v4Pbzfai Kidney Disease: Estimated GFR < 15 mL/min/1.73m2 Glucose 113 60 - 115 mg/dL [facility] Calcium 9.2 8.4 - 10.2 mg/dL [facility] Bilirubin, Total 0.7 0.0 - 1.0 mg/dL [facility] Aspartate Amino Transferase 33 5 - 37 U/L [facility] Alanine Aminotransferase 20 0 - 40 U/L [facility] Total Protein 7.7 6.5 - 8.0 g/dL [facility] Albumin Level 4.1 3.5 - 5.0 g/dL [facility] Alkaline Phosphatase 64 39 - 117 U/L [facility] Blood Venous blood specimen / Unknown 04/02/2024 12:10 PM EST 04/02/2024 1:38 PM EST us Hallie Chavira MD LAB BLOOD ORDERABLES Final Resul t Performing Organization Address [facility]/ZIP Co de Phone Number [facility] [address] [place] [phone] from Last 3 Months Insurance [facility] [place] [id number] , [place] [id number] Care Teams Physician Obstetrician Relationship Specialty Start Date End Date Hallie Chavira MD [address] [place] [phone] PCP - General Family Medicine 03/13/18 [facility] 07/05/19
--- OUTSIDE RECORDS SUMMARY | 2024-06-13 08:45 | XMS_ITS | Encounter Summary ---
Author Organization [employer] Address [address] [place] [address] 7t [place] [address] Care Team Providers Care Ophthalmic Pathologist Name Role Phone Hallie Mcclendon MD Primary Care Provider Reason for Visit * Reason Comments Med Refill Encounter Details Date Type Department Care Team (Late st Contact Info) Description 06/14/2022 Refill [facility]S [address] [place], [place] [phone] Hallie Mcclendon MD [address] [place], [place] [phone] Anemia in other chronic diseases classified elsewhere Social History Tobacco Use Types Packs/Day Years Used Date Smoking Tobacco: Every Day Cigarettes Smokeless Tobacco: Never Alcohol Use Standard Drinks/Week Comments Not Currently 0 (1 standard drink = 0.6 oz pur e alcohol) PHQ-2 Answer Date Recorded Patient Health Questionnaire-2 Score 0 04/21/2022 Depression Answer Date Recorded Patient Health Questionnaire-2 [...] Description 07/22/2024 9:30 AM EDT Office Visit [facility] MEDICINE [address] [place] [address] [phone] Hallie Mcclendon MD [address] [place], [place] [phone] documented as of this encounter Visit Diagnoses Diagnosis Anemia in other chronic diseases classified elsewhere documented in this encounter Care Teams Ophthalmic Pathologist Relationship Specialty Start Date End Date Hallie Mcclendon MD [address] [place] [phone] PCP - General Family Medicine 03/13/18 [facility] 07/05/19 documented as of this encounter
--- OUTSIDE RECORDS SUMMARY | 2024-06-13 08:45 | XMS_ITS | Encounter Summary ---
Author Organization [employer] Address [address] [facility] 7t [place] [address] Care Team Providers Care French Teacher Name Role Phone Hallie Mcclendon MD Primary Care Provider [phone] Reason for Visit * Reason Comments Med Refill Encounter Details Date Type Department Care Team ([facility] st Contact Info) Description 07/13/2023 Refill [facility] [address] [place], [place] [phone] Hallie Mcclendon MD [address] [place], [place] [phone] Constipation, unspecified constipation type Social History Tobacco [...] Description 07/22/2024 9:30 AM EDT Office Visit [facility] MED[facility]INE [address] [place] [phone] Hallie Mcclendon MD [address] [place] [phone] documented as of this encounter Visit Diagnoses Diagnosis Constipation, unspecified constipation type documented in this encounter Care Teams French Teacher Relationship Specialty Start Date End Date Hallie Mcclendon MD [address] [place] [phone] PCP - General Family Medicine 03/13/18 [facility] 07/05/19 documented as of this encounter
--- OUTSIDE RECORDS SUMMARY | 2024-06-13 08:45 | XMS_ITS | Encounter Summary ---
Author Organization [employer] Address [address] [facility] 7t [place] [address] Care Team Providers Care Business Insurance Agent Name Role Phone Hallie Mcclendon MD Primary Care Provider [phone] Reason for Visit * Reason Onset Date Comments Prior Auth DME 06/04/2024 Encounter Details Date Type Department Care Team ([facility] st Contact Info) Description 06/04/[address] [facility] [address] [place], [place] [phone] Hallie Mcclendon MD [address] [place], [place] [phone] Prior Auth DME Social History Tobacco Use Types Packs/Day Years [...] Encounter - Gayatri Liang [place] - 06/08/2024 10:09 AM EDT Generated DME rx for item below and placed on PCP desk for signature. * Telephone Encounter - Jennifer Tuttle - 06/04/2024 10:07 AM EDT Patient walked in requesting DME for: Pull up - size medium Shower rug (the clear rug that goes on the bottom of the tub to prevent Patient from slipping). documented in this encounter Plan of Treatment Upcoming Encounters Date Type Department Care Team (Late st Contact Info) Description 07/22/2024 9:30 AM EDT Office [address] [facility] [address] [place] [address] Hallie Mcclendon MD [address] [place] [address] documented as of this encounter Visit Diagnoses Not on filedocumented in this encounter Additional Health Concerns Assessment Noted Time PHQ-9 Depression Total Score: 0 11/20/19 24 9:22 AM EDT documented as of this encounter Care Teams Business Insurance Agent Relationship Specialty Start Date End Date Hallie Mcclendon MD [address] [place] [address] PCP - General Family Medicine 03/13/18 [facility] 07/05/19 documented as of this encounter
--- OUTSIDE RECORDS SUMMARY | 2024-06-13 08:46 | XMS_ITS | Encounter Summary ---
Author Organization [employer] Address [address] [facility] 7t [place] [address] Care Team Providers Care Cma Or Lpn Name Role Phone Hallie Mcclendon MD Primary Care Provider [phone] Encounter Details Date Type Department Care Team (Late st Contact Info) Description 04/05/2024 Orders Only [facility] MED[facility]INE [address] [place], [place] [phone] Hallie Mcclendon MD [address] [place] [phone] Social History Tobacco Use Types Packs/Day Years [...] Description 07/22/2024 9:30 AM EDT Office Visit [facility] [address] [place] [phone] Hallie Mcclendon MD [address] [place] [address] documented as of this encounter Visit Diagnoses Not on filedocumented in this encounter Additional Health Concerns Assessment Noted Time PHQ-9 Depression Total Score: 0 11/20/19 24 9:22 AM EDT documented as of this encounter Care Teams Cma Or Lpn Relationship Specialty Start Date End Date Hallie Mcclendon MD [address] [place] [phone] PCP - General Family Medicine 03/13/18 [facility] 07/05/19 documented as of this encounter
--- OUTSIDE RECORDS SUMMARY | 2024-06-13 08:46 | XMS_ITS | Encounter Summary ---
Author Organization [facility] Address [address] [place] [address] 7t [place] [address] Care Team Providers Care Hide Paster Name Role Phone Hallie Mcclendon MD Primary Care Provider [phone] Encounter Details Date Type Department Care Team (Late Contact Info) Description 06/20/2022 Telephone [facility] MEDICINE [address] [place] [address] [phone] Hallie Mcclendon MD [address] [place] [address] [phone] Social History Tobacco Use Types Packs/Day Years [...] Description 07/22/2024 9:30 AM EDT Office Visit [facility] MEDICINE [address] [place] [address] [phone] Hallie Mcclendon MD [address] [place] [address] [phone] documented as of this encounter Visit Diagnoses Not on filedocumented in this encounter Care Teams Hide Paster Relationship Specialty Start Date End Date Hallie Mcclendon MD [address] [place] [phone] PCP - General Family Medicine 03/13/18 [facility] 07/05/19 documented as of this encounter
--- OUTSIDE RECORDS SUMMARY | 2024-06-13 08:46 | XMS_ITS | Encounter Summary ---
Author Organization [employer] Address [address] [place] [address] 7t [place] [address] Care Team Providers Care It Service Manager Name Role Phone Hallie Mcclendon MD Primary Care Provider [phone] Encounter Details Date Type Department Care Team (Late Contact Info) Description 12/09/2022 Orders Only [facility] MED[facility] [address] [place] [address] Hallie Mcclendon MD [address] [place] [address] Hematemesis, unspecified whether nausea present (Primary Dx); Heart failure with reduced ejection fraction (CMS/HCC); Dyslipidemia; Elevated TSH; Class 1 obesity due to excess calories with serious comorbidity and body mass index (BMI) of 31.0 to 31.9 in adult Social History Tobacco Use Types Packs/Day Years [...] Description 07/22/2024 9:30 AM EDT Office Visit [facility] [address] [place] [address] Hallie Mcclendon MD [address] [place] [address] documented as of this encounter Procedures Procedure Name Priority Date/Time Associated Diagnosis Comments VITAMIN B12/FOLATE, SERUM PANEL Routine 12/13/2022 10:07 AM EDT Hematemesis, unspecified whether nausea present CBC WITH AUTO DIFFERENTIAL Routine 12/13/2022 10:07 AM EDT Hematemesis, unspecified whether nausea present IRON AND TOTAL IRON BINDING CAPACITY Routine 12/13/2022 10:07 AM EDT Hematemesis, unspecified whether nausea present TSH Routine 12/13/2022 10:07 AM EDT Elevated TSH Class 1 obesity due to excess calories with serious comorbidity and body mass index (BMI) of 31.0 to 31.9 in adult T4, FREE Routine 12/13/2022 10:07 AM EDT Elevated TSH Class 1 obesity due to excess calories with serious comorbidity and body mass index (BMI) of 31.0 to 31.9 in adult B TYPE NATRIURETIC PEPTIDE (BNP) Routine 12/13/2022 10:07 AM EDT Heart failure with reduced ejection fraction (CMS/HCC) HEMOGLOBIN A1C Routine 12/13/2022 10:07 AM EDT Class 1 obesity due to excess calories with serious comorbidity and body mass index (BMI) of 31.0 to 31.9 in adult FERRITIN Routine 12/13/2022 10:07 AM EDT Hematemesis, unspecified whether nausea present COMPREHENSIVE METABOLIC PANEL Routine 12/13/2022 10:07 AM EDT Hematemesis, unspecified whether nausea present documented in this encounter Results * (ABNORMAL) Vitamin B12/Folate, Serum Panel (12/13/2022 10:07 AM EDT) Vitamin B12 >2,000(H ) 200 - 900 pg/mL [facility] Comment:NORMAL 200-900 PG/ML INDETERMINATE 160-199 PG/ML DEFICIENT < 160 PG/ML Folate 10.6 > or = 4.0 ng/mL [facility] Comment:Reference Values:> o r = 4.0 ng/mL< 4.0 ng/mL suggests folate deficiency Methotrexate, aminopterin and folinic acid(leucovorin) are chemotherapeutic agents whose molecularstructures are similar to folate; therefore, the Architectfolate assay cannot be used for patients using these drugs. 12/13/2022 10:0 7 AM EDT 12/13/2022 10:07 AM EDT Hallie Mcclendon MD LAB BLOOD ORDERABLES Final Resul t Performing Organization Address City/[facility]/ZIP Co de Phone Number [facility] [address] [place] [phone] * (ABNORMAL) Iron And Total Iron Binding Capacity (12/13/2022 10:07 AM EDT) [facility] Iron 131 45 - 160 mcg/dL [facility] Total Iron Binding Capacity 251 228 - 428 mcg/dL [facility] Percent Iron Saturation 52(H) 15 - 50 % [facility] Unsaturated Iron Binding 120 ug/dL [facility] Blood Venous blood specimen / Unknown 12/13/2022 10:07 AM EDT 12/13/2022 10:07 AM EDT Hallie Mcclendon MD LAB BLOOD ORDERABLES Final Resul t Performing Organization Address City/[facility]/ZIP Co de Phone Number [facility] [address] [place] [phone] * (ABNORMAL) Ferritin (12/13/2022 10:07 AM EDT) Ferritin 506(H) 20 - 250 ng/mL [facility] Blood Venous blood specimen / Unknown 12/13/2022 10:07 AM EDT 12/13/2022 10:07 AM EDT Hallie Mcclendon MD LAB BLOOD ORDERABLES Final Resul t Performing Organization Address [facility] Co de Phone Number [facility] [address] [place] [phone] * T4, Free (12/13/2022 10:07 AM EDT) Free T4 (Free Thyroxine) 0.90 0.71 - 1.85 ng/dL [facility] Blood Venous blood specimen / Unknown 12/13/2022 10:07 AM EDT 12/13/2022 10:07 AM EDT Hallie Mcclendon MD LAB BLOOD ORDERABLES Final Resul t Performing Organization Address [facility] Co de Phone Number [facility] [address] [place] [phone] * TSH (12/13/2022 10:07 AM EDT) Thyroid Stimulating Hormone 2.54 0.32 - 4.0 uIU/mL [facility] Comment:TSH 3rd Generation ( [facility]) Blood Venous blood specimen / Unknown 12/13/2022 10:07 AM EDT 12/13/2022 10:07 AM EDT Hallie Mcclendon MD LAB BLOOD ORDERABLES Final Resul t Performing Organization Address [facility] Co de Phone Number [facility] [address] [place] [phone] * Hemoglobin A1c (12/13/2022 10:07 AM EDT) Hemoglobin A1c 5.7 <6.0 % [facility] Comment:Hemoglobin A1C Refer ence Range Adults: 4.8 - 6.0 % Non diabetic: < 6.0 % Goal: < 7.0 %Additional Action Suggested: > 8.0 %Note: Hemoglobin A1c results are invalid for patients with abnormal amounts of HbF. Blood transfusions may impact the HbA1c concentration in the patient sample. Estimated Average Glucose 117 mg/dL [facility] Comment:eAG = Estimated ave rage glucose which is %A1C expressed asaverage glucose, using the formula of the L8R-VkoyzgbHhornbq Glucose study (ADAG), Diabetes Care, Vol.31,#8,Oct. 2007 Blood Venous blood specimen / Unknown 12/13/2022 10:07 AM EDT 12/13/2022 10:07 AM EDT us Hallie Mcclendon MD LAB BLOOD ORDERABLES Final Resul t [facility] [address] [place] [phone] * (ABNORMAL) Comprehensive Metabolic Panel (12/13/2022 10:07 AM EDT) Sodium 139 135 - 145 mmol/L [facility] Potassium 3.8 3.3 - 5.1 mmol/L [facility] Chloride 106 96 - 108 mmol/L [facility] Carbon Dioxide 24 22 - 29 mmol/L [facility] Anion Gap 13 12 - 20 [facility] Urea Nitrogen (BUN) 21(H) 9 - 16 mg/dL [facility] Creatinine, Serum 1.06 0.5 - 1.4 mg/dL [facility] Estimated Glomerular Filt Rate >60 [facility] Comment:NOTE: For -Am erican individuals, multiply the result by 1.210.Chronic Kidney Disease: Estimated GFR < 60 mL/min/1.85n3Iohfzu Kidney Disease: Estimated GFR < 15 mL/min/1.73m2 Glucose 104 60 - 115 mg/dL [facility] Calcium 10.3(H) 8.4 - 10.2 mg/dL [facility] Bilirubin, Total 0.5 0.0 - 1.0 mg/dL [facility] Aspartate Amino Transferase 25 5 - 37 U/L [facility] Alanine Aminotransferase 24 0 - 40 U/L [facility] Total Protein 7.6 6.5 - 8.0 g/dL [facility] Albumin Level 4.3 3.5 - 5.0 g/dL [facility] Alkaline Phosphatase 88 39 - 117 U/L [facility] Blood Venous blood specimen / Unknown 12/13/2022 10:07 AM EDT 12/13/2022 10:07 AM EDT us Hallie Mcclendon MD LAB BLOOD ORDERABLES Final Resul t [facility] [address] [place] [phone] * (ABNORMAL) CBC auto differential (12/13/2022 10:07 AM EDT) White Blood Count 8.1 4.8 - 10.8 X10*3/uL [facility] Red Blood Count 5.15 4.60 - 5.80 X10*6/uL [facility] Hemoglobin 15.5 14.0 - 18.0 g/dl [facility] Hematocrit 45.7 42.0 - 52.0 % [facility] Mean Corpuscular Volume 88.7 80.0 - 98.0 fL [facility] Mean Corpuscular Hemoglobin 30.1 27.0 - 33.0 pg [facility] Mean Corpuscular HGB Conc 33.9 31.0 - 36.0 g/dl [facility] Red Cell Distribution Width 12.7 11.0 - 16.0 % [facility] Platelet Count 182 160 - 400 X10*3/uL [facility] Mean Platelet Volume 10.5 9.4 - 12.4 fL [facility] Neutrophils Percent Auto 55.1 45 - 73 % [facility] Imm Gran Pct Auto 0.2 0.0 - 0.4 % [facility] Lymphocytes Percent Auto 30.2 20 - 40 % [facility] Monocytes Percent Auto 6.5 2 - 11 % [facility] Eosinophils Percent Auto 7.5(H) 0 - 4 % [facility] Basophils Percent Auto 0.5 0 - 2 % [facility] NRBC Pct Auto 0.0 0.0 - 0.2 /100WBC [facility] Neutrophils Absolute Auto 4.5 2.0 - 8.3 x10*3/uL [facility] Imm Gran Abs Auto 0.02 0.00 - 0.03 X10*3/uL [facility] Lymphocytes Absolute Auto 2.5 1.2 - 4.9 X10*3/uL [facility] Monocytes Absolute Auto 0.5 0.1 - 1.2 X10*3/uL [facility] Eosinophils Absolute Auto 0.6(H) 0.0 - 0.4 X10*3/uL [facility] Basophils Absolute Auto 0.0 0.0 - 0.2 X10*3/uL [facility] NRBC Abs Auto 0.000 0.0 - 0.012 X10*3/uL [facility] Blood Venous blood specimen / Unknown 12/13/2022 10:07 AM EDT 12/13/2022 10:07 AM EDT us Hallie Mcclendon MD LAB BLOOD ORDERABLES Final Resul t [facility] [address] [place] [phone] * B Type Natriuretic Peptide (BNP) (12/13/2022 10:07 AM EDT) B Type Natriuretic Peptide <10 <100 pg/mL [facility] Comment:For those patients w ho are being treated with Natrecor(nesiritide, recombinant BNP), BNP testing should beperformed at least two hours post treatment in order toensure that only endogenous levels of BNP are detected. Blood Venous blood specimen / Unknown 12/13/2022 10:07 AM EDT 12/13/2022 10:07 AM EDT us Hallie Mcclendon MD LAB BLOOD ORDERABLES Final Resul t [facility] [address] [place] [phone] documented in this encounter Visit Diagnoses Diagnosis Hematemesis, unspecified whether nausea present- Primary Heart failure with reduced ejection fraction (CMS/HCC) Dyslipidemia Other and unspecified hyperlipidemia Elevated TSH Other abnormal blood chemistry Class 1 obesity due to excess calories with serious comorbidity and body mass index (BMI) of 31.0 to 31.9 in adult documented in this encounter Care Teams It Service Manager Relationship Specialty Start Date End Date Hallie Mcclendon MD [address] [place] [phone] PCP - General Family Medicine 03/13/18 [facility] 07/05/19 documented as of this encounter
--- OUTSIDE RECORDS SUMMARY | 2024-06-13 08:46 | XMS_ITS | Encounter Summary ---
Author Organization [email or web address] Address [address] [facility] 7[address] [place] [address] Care Team Providers Care College Advisor Name Role Phone Hallie Mcclendon MD Primary Care Provider [phone] Reason for Visit * Reason Comments Med Refill Encounter Details Date Type Department Care Team ([facility] st Contact Info) Description 05/14/2024 Refill [facility] [address] [place], [place] [phone] Hallie Mcclendon MD [address] [place], [place] [phone] Social History Tobacco Use Types Packs/Day Years [...] Description 07/22/2024 9:30 AM EDT Office Visit [facility] [address] [place] [address] Hallie Mcclendon MD [address] [place] [address] documented as of this encounter Visit Diagnoses Not on filedocumented in this encounter Additional Health Concerns Assessment Noted Time PHQ-9 Depression Total Score: 0 11/20/19 24 9:22 AM EDT documented as of this encounter Care Teams College Advisor Relationship Specialty Start Date End Date Hallie Mcclendon MD [address] [place] [address] PCP - General Family Medicine 03/13/18 [facility] 07/05/19 documented as of this encounter
== END 2024-06-13 11:06 | disposition home or self-care (01) ==
PROVIDERS: PCP Family Medicine; Visit Provider Urology
DX: R97.20 Elevated prostate specific antigen [PSA] (principal); N40.1 Benign prostatic hyperplasia with lower urinary tract symptoms; R39.15 Urgency of urination
CPT/HCPCS: 99213; G2211

== ENCOUNTER → 2024-06-13 08:35 | Outpatient (BNVA) | payer OTHER, SELFPAY | PROVIDERS: PCP Family Medicine; Visit Provider Urology | DX: N40.1 Benign prostatic hyperplasia with lower urinary tract symptoms (principal); R39.15 Urgency of urination; N13.8 Other obstructive and reflux uropathy; R33.8 Other retention of urine; R97.20 Elevated prostate specific antigen [PSA] | CPT/HCPCS: 99212 ==

== ENCOUNTER 2024-08-02 09:21 | Outpatient (REF) | payer OTHER, SELFPAY ==
--- OUTSIDE RECORDS SUMMARY | 2024-08-02 09:34 | XMS_ITS | Data Portability ---
Author Organization [employer] Address [address] [place] [phone] Care Team Providers Care Oil Tank Car Cleaner Name Role Phone HIM [facility] OTHER [facility] OTHER ELIAN CHAVIRA Primary Care Provider [phone] Assessment Encounter Date Assessment Date Assessment LastModified [...] Assessment and Plan as documented by the Internal Control Analyst. We discussed the diagnostic uncertainty of home visits and the risk associated with this. In this case I felt this to be an acceptable and reasonable amount of risk given the benefit of avoiding an ED visit. The patient given the opportunity to ask questions via Liberian language line checker dump grounds.. Advised if develops severe pain in the hand/ LUE/ if it becomes red / hot or cold blue or numb// hi fever advised to get rechecked immediately in the emergency department- he verbalized understanding of instructions to the medic via checker dump grounds [email or web address] Not available 01/01/2024 12:52:50 Plan of Treatment Reminders Order Date Submit Date Provider Last Modified By Organization Details Last Modified Time Details Appointments None recorded. Lab None recorded. Referral None recorded. Procedures None recorded. Surgeries None recorded. Imaging None recorded. Medication Orders acetaminoph en 500 mg tablet 2023 [email or web address] 0 Not available 4 13:22:31 acetaminoph en 500 mg tablet 2023 [facility], [address] [place] [address], [id number], 4 15:34:02 Patient TargetsNo targets recorded. Patient [...] Details Last Updated DateTime 4 89 /min 49635.3 36 g 17 /min 98.2 [degF] 160.02 cm 96 % 96 % 114 mm[Hg] 82 mm[Hg] Not Available [employer] - production 4 12:55:59 Date Recorded Body [...] % 99 % 82 /min 14 /min 13085.3 76 g 14 /min 99 % 99 % 98.5 [degF] 82 /min 47225.3 76 g 118 mm[Hg] 76 mm[Hg] 118 mm[Hg] 76 mm[Hg] Not Available [employer] - production 12:23:06 Social History None recorded. Functional Status None recorded. Mental Status None recorded. Family History Nothing Reported. Medical History No medical history recorded. Past Encounters Encounter ID Performer Location Encounter Start Date Encounter Closed Date Diagnosis/Indication Diagnosis SNOMED-CT Code Diagnosis ICD10 Code Diagnosis Note [id number] Deshawn Stanton MD Main - [facility] [address] [place] [phone] 06/02/2022 12:06:33 06/06/2022 12:44:47 Strain of muscle of chest wall 031870552 S29.011A [id number] Joanne Smith MD Main - [facility] [address] [place] [id number] 01/01/2024 12:33:37 01/02/2024 10:13:23 Contusion of left thumb 1796248503 [id number] S60.012A Advised to elevate/ advised ice / [...] Recorded Advance Directives Directive None Recorded Payers Insurance Date Sequence Insurance Name Policy Number Policy Crawford Covered Member ID Crawford Member ID Guarantor Name 10/15/2023 1 [facility] - DOS PRIOR TO 2022 - DUAL ELIGIBLE (MEDICARE REPLACEMENT/ADV ANTAGE - HMO) Joseph Hicks [id number] Joseph Hicks 01/16/2024 1 [facility] - DOS ON OR AFTER 2022 - DUAL ELIGIBLE - USP OPTIONS AND ONE CARE (MEDICARE REPLACEMENT/ADV ANTAGE - HMO) Joseph Hicks [id number] Joseph Hicks Notes Date Note Type Note Provider Name and Address Organization Details Recorded Time 06/02/2022 text/html HPI: Spoke with member via Liberian int #[id number] requesting [facility] visit for eval R sided upper back and chest area since yesterday s/p turned to take seatbelt off. No OTC's States pain resolved would just like it checked Deny SOB or N/V. Discuss if symptoms return/progress to seek emergent care call 911/-verbalize understanding. Verify member identity name/- .................... .................... .................... .................... .................... .................... .................... . Internal Control Analyst Note From Pedro Pablo Holland: Pt requested [...] .................... . Disposition: Kevin Stanton MD [address] [facility],[address], [place], [address], [place] DOM CANO 06/02/2022 18:07:45 01/01/2024 text/html HPI: Patient with [...] .................... .................... .................... .................... .................... .................... . Internal Control Analyst Note From Mauricio Katz: [facility] makes pt contact 83 yo M CC of swelling to left thumb.[facility] obtains consent and uploads electronically. PT vitals obtained. [facility] uses interpretation services due to language barrier. PT explains he broke his left wrist roughly 4 months ago. PT awoke today with a swollen left thumb. PT denies pain, has full range of motion, not sensitive/painful to touch, sufficient capillary refill, appears like a bruise, mild swelling is noted. PT denies any medication allergies. PT medication is managed by 3rd libertarian, box is locked. PT denies blood thinners or any recent traumas. [facility] contacts [facility] and uploads picture electronically. [facility] believes pt struck hand causing the injury and bruising, PT also has repetitive movement of rolling the thumb across the pointer finger with a closed fist which was witnessed throughout the call. [facility] orders 1gram of PO acetaminophen if pt wants it which he agrees too, PT also accepts a prescription of acetaminophen sent to his pharmacy at [facility]. PT is advised to use ice and [...] then he may need imaging. PT understands [facility] clear. .................... .................... .................... .................... .................... .................... [...] to psychiatric meds Joanne Smith MD [address] [facility],[address], [place], [address], [employer] 01/01/2024 14:47:58
[2024-08-02 12:04] LABS: Magnesium 1.4 mg/dL (1.6-2.6)
== END 2024-08-02 09:22 | disposition home or self-care (01) ==
LOC: HO.HHCL 09:21
PROVIDERS: Visit Provider Internal Medicine
DX: E83.42 Hypomagnesemia (principal)
CPT/HCPCS: 36415; 83735

== ENCOUNTER 2024-08-16 08:45 | Outpatient (REF) | payer OTHER, SELFPAY ==
--- OUTSIDE RECORDS SUMMARY | 2024-08-16 09:00 | XMS_ITS | Data Portability ---
Author Organization [employer] [facility], [facility] Address [address] [place] [address] Care Team Providers Care Machine Shorthand Reporter Name Role Phone HIM [facility] OTHER [facility] OTHER ELIAN CHAVIRA Primary Care Provider [phone] Assessment Encounter Date Assessment Date Assessment LastModified [...] Assessment and Plan as documented by the Carding Machine Feeder. We discussed the diagnostic uncertainty of home visits and the risk associated with this. In this case I felt this to be an acceptable and reasonable amount of risk given the benefit of avoiding an ED visit. The patient given the opportunity to ask questions via [place] language line breakfast bar attendant.. Advised if develops severe pain in the hand/ LUE/ if it becomes red / hot or cold blue or numb// hi fever advised to get rechecked immediately in the emergency department- he verbalized understanding of instructions to the medic via breakfast bar attendant [email or web address] Not available 01/01/2024 12:52:50 Plan of Treatment Reminders Order Date Submit Date Provider Last Modified By Organization Details Last Modified Time Details Appointments None recorded. Lab None recorded. Referral None recorded. Procedures None recorded. Surgeries None recorded. Imaging None recorded. Medication Orders acetaminoph en 500 mg tablet 2023 [email or web address] 0 Not available 13:22:31 acetaminoph en 500 mg tablet 2023 [facility], [address] [place] [address], [id number], 15:34:02 Patient TargetsNo targets recorded. Patient InstructionsNo [...] Available No t Available Vitals Date Recorded Body temperature Oxygen saturation Oxygen [...] % 99 % 82 /min 14 /min 79195.3 76 g 14 /min 99 % 99 % 98.5 [degF] 82 /min 40688.3 76 g 118 mm[Hg] 76 mm[Hg] 118 mm[Hg] 76 mm[Hg] Not Available [email or web address] 3 12:23:06 Date Recorded Heart rate Body weight Respiratory rate Body temperature Body height Oxygen saturation Oxygen saturation in Arterial blood by Pulse oximetry Systolic blood pressure Diastolic blood pressure Provider Name and Address Organization Details Last Updated DateTime 4 89 /min 41901.3 36 g 17 /min 98.2 [degF] 160.02 cm 96 % 96 % 114 mm[Hg] 82 mm[Hg] Not Available [email or web address] - production 12:55:59 Social History None recorded. Functional Status None recorded. Mental Status None recorded. Family History Nothing Reported. Medical History No medical history recorded. Past Encounters Encounter ID Performer Location Encounter Start Date Encounter Closed Date Diagnosis/Indication Diagnosis SNOMED-CT Code Diagnosis ICD10 Code Diagnosis Note [id number] Deshawn Stanton MD Main - [facility] [address] [place] [phone] 06/02/2022 12:06:33 06/06/2022 12:44:47 Strain of muscle of chest wall [id number] S29.011A [id number] Joanne Smith MD Main - [facility] [address] [place] [phone] 01/01/2024 12:33:37 01/02/2024 10:13:23 Contusion of left thumb [id number] 8611389 S60.012A Advised to elevate/ advised ice / [...] ID Guarantor Name 10/15/2023 1 [facility] - DOS PRIOR TO 2022 - DUAL ELIGIBLE (MEDICARE REPLACEMENT/ADV ANTAGE - HMO) Joseph Hicks [id number] Joseph Hicks 01/16/2024 1 [facility] - DOS ON OR AFTER 2022 - DUAL ELIGIBLE - FDC OPTIONS AND ONE CARE (MEDICARE REPLACEMENT/ADV ANTAGE - HMO) Joseph Hicks [id number] Joseph Hamiltonyo Notes Date Note Type Note Provider Name and Address Organization Details Recorded Time 06/02/2022 text/html HPI: Spoke with member via [place] int #[id number] requesting [facility] visit for eval R sided upper back and chest area since yesterday s/p turned to take seatbelt off. No OTC's States pain resolved would just like it checked Deny SOB or N/V. Discuss if symptoms return/progress to seek emergent care call 911/-verbalize understanding. Verify member identity name/- .................... .................... .................... .................... .................... .................... .................... . Carding Machine Feeder Note From Pedro Pablo Holland: Pt requested [...] .................... . Disposition: Kevin Stanton MD [address] [facility],[address], [place], [address], [place] RONALD Alonso DOM POZO 06/02/2022 18:07:45 01/01/2024 text/html HPI: Patient with [...] .................... .................... .................... .................... .................... .................... . Carding Machine Feeder Note From Mauricio Katz: [facility] makes pt contact 83 yo M CC of swelling to left thumb.[facility] obtains consent and uploads electronically. PT vitals obtained. [facility] uses interpretation services due to language barrier. PT explains he broke his left wrist roughly 4 months ago. PT awoke today with a swollen left thumb. PT denies pain, has full range of motion, not sensitive/painful to touch, sufficient capillary refill, appears like a bruise, mild swelling is noted. PT denies any medication allergies. PT medication is managed by 3rd republican, box is locked. PT denies blood thinners or any recent traumas. [facility] contacts [facility] and uploads picture electronically. [facility] believes pt struck hand causing the injury and bruising, PT also has repetitive movement of rolling the thumb across the pointer finger with a closed fist which was witnessed throughout the call. [facility] orders 1gram of PO acetaminophen if pt wants it which he agrees too, PT also accepts a prescription of acetaminophen sent to his pharmacy at [facility]. PT is advised to use ice and [...] then he may need imaging. PT understands [facility] clear. .................... .................... .................... .................... .................... .................... [...] to psychiatric meds Joanne Smith MD [address] [facility],[address], [place], [address], [employer] 01/01/2024 14:47:58
[2024-08-16 11:35] LABS: Magnesium 1.6 mg/dL (1.6-2.6)
== END 2024-08-16 08:46 | disposition home or self-care (01) ==
LOC: HO.HHCL 08:45
PROVIDERS: Visit Provider Internal Medicine
DX: E83.42 Hypomagnesemia (principal)
CPT/HCPCS: 36415; 83735

== ENCOUNTER 2024-09-02 13:52 | Outpatient (AMB) | payer OTHER, SELFPAY ==
[2024-09-02 14:29] VITALS: BP 100/47; PULSE 62; O2SAT 95; BMI 28.3
--- NOTE | 2024-09-02 14:29 | MHC.OFFVIS ---
Vital Signs 09/02/24 14:29 Height 5 ft 3 in Weight 160 lb BMI 28.3 BP 100/47 L Blood Pressure Location Rt brachial Position Sitting Pulse 62 Pulse Source Pulse Oximeter Pulse Oximetry (%) 95 Oxygen Delivery Method Room Air Intake Visit Reasons: Pulmonary fibrosis Construction Equipment Operator Required: Yes Construction Equipment Operator Name: Giovanna Franklin Raoul Allergies No Known Allergies Allergy (Verified 09/02/24 14:32) HPI HPI Pulmonary fibrosis: Details: 84-year-old gentleman, former 50+ years smoker, quit 2020, now followed for moderate COPD and bilateral pulmonary nodules.?? He has been using Trelegy, theophylline and albuterol MDI/nebs with good control of his symptoms. Patient did have pneumonia approximately 2 months prior and now has recovered to baseline. He denies any other exacerbations. [facility] Medical History (Updated 01/23/24 @ 07:43 by Krystyna Christianson RN) Schizophrenia Hiatal hernia Opioid dependence, uncomplicated Tobacco use disorder Lung nodules COPD (chronic obstructive pulmonary disease) Undifferentiated schizophrenia Transient alteration of awareness ST segment depression Dizziness Memory impairment Chronic anemia Substance abuse Gallstones Smoker Depression Gastritis Esophagitis Asthma GERD (gastroesophageal reflux disease) HTN (hypertension) Surgical History History of esophagogastroduodenoscopy (EGD) Hx of colonoscopy History of prostate biopsy Family History Father No problems noted. Mother No problems noted. 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 Housing: House Are you a primary care director rn to a significant other at home: No Do you presently have visiting nurse or other home services: No Alcohol intake: never Patient Tobacco Use Status: Never used Tobacco Tobacco use type: Cigarette Cigarettes Per Day: 4 Second Hand Smoke Exposure: No Substance Use Type: Heroin service: No Current occupational status: unemployed and disabled Review of Systems Const Denies daytime sleepiness, Denies excessive sweating, Denies fatigue, Denies fever(s), Denies lethargy, Denies malaise, Denies night sweats, Denies snoring and Denies weight loss Eyes Denies blurry vision and Denies itchy eyes ENT Denies nasal congestion, Denies post nasal drip, Denies sinus pain, Denies sinus pressure and Denies other ( Thrush) Card Denies chest pain, Denies pedal edema, Denies dyspnea, Denies orthopnea and Denies paroxysmal nocturnal dyspnea Resp Denies cough, Denies hemoptysis, Denies excessive phlegm production, Denies dyspnea, Denies snoring and Denies wheezing GI Denies abdominal pain and Denies heartburn Musc Denies myalgias, Denies arthralgias and Denies joint swelling Skin/Breast Denies rash Neuro Denies memory loss and Denies seizure-like activity Psych Denies abnormal sleep pattern, Denies anxiety and Denies memory loss Endo Denies excessive sweating, Denies fatigue and Denies heat intolerance Griffin/Lymph Denies easy bruising Aller/Immun Denies itchy eyes, Denies seasonal rhinorrhea and Denies wheezing Physical Exam Vital Signs: Last Vital Signs Pulse 62 09/02/24 14:29 BP 100/47 L 09/02/24 14:29 Pulse Ox 95 09/02/24 14:29 Oxygen Delivery Method Room Air 09/02/24 14:29 BMI result Body Mass Index 28.3 Const General: no acute distress and alert Nutritional Appearance: not obese Orientation/consciousness: Other orientation findings ( oriented) HEENT Head: Yes atraumatic Eyes General: appearance normal, both eyes and all related structures Sclerae: sclerae normal EOM: EOMs intact bilaterally Neck Neck: Yes supple Lymphatic: no lymphadenopathy noted Resp Effort & Inspection: normal respiratory effort and no use of accessory muscles Auscultation: clear to auscultation bilaterally Cardio Rate: regular rate Rhythm: regular rhythm Heart sounds: no gallops, no murmurs and no rubs Skin General skin exam: other ( warm) Extrem General: No clubbing, No cyanosis and No edema Assessment & Plan Assessment & Plan (1) COPD (chronic obstructive pulmonary disease): Code(s): J44.9 - Chronic obstructive pulmonary disease, unspecified Category: Medical (2) Pulmonary fibrosis: Code(s): J84.10 - Pulmonary fibrosis, unspecified Category: Medical Plan Stable respiratory status with good symptom control on current regimen of Trelegy and albuterol MDI. Continue current regimen. Coding Level of Care Code Est Pt Level 4 (95886) Diagnoses COPD (chronic obstructive pulmonary disease) J44.9 Pulmonary fibrosis J84.10
--- OUTSIDE RECORDS SUMMARY | 2024-09-02 15:23 | XMS_ITS | Encounter Summary ---
Author Organization [employer] Address [address] [facility] 7t [place] [address] Care Team Providers Care Animal Trainer Name Role Phone Hallie Mcclendon MD Primary Care Provider [phone] Reason for Visit * Reason Comments Med Refill Encounter Details Date Type Department Care Team ([facility] st Contact Info) Description 07/13/[address] [facility] [address] [place], [place] [phone] Hallie Mcclendon MD [address] [place], [place] [phone] Constipation, unspecified constipation type Social History Tobacco [...] as of this encounter Plan of Treatment Not on file documented as of this encounter Visit Diagnoses Diagnosis Constipation, unspecified constipation type documented in this encounter Care Teams Animal Trainer Relationship Specialty Start Date End Date Hallie Mcclendon MD [address] [place] [address] PCP - General Family Medicine 03/13/18 [facility] 07/05/19 documented as of this encounter
== END 2024-09-02 14:41 | disposition home or self-care (01) ==
LOC: HO.HPS 13:53
PROVIDERS: PCP Family Medicine; Visit Provider Internal Medicine Pulmonary Disease
DX: J44.9 Chronic obstructive pulmonary disease, unspecified (principal); J84.10 Pulmonary fibrosis, unspecified
CPT/HCPCS: 99214

== ENCOUNTER → 2024-09-02 13:52 | Outpatient (BNVA) | payer OTHER, SELFPAY | PROVIDERS: PCP Family Medicine; Visit Provider Internal Medicine Pulmonary Disease | DX: J84.10 Pulmonary fibrosis, unspecified (principal); J44.9 Chronic obstructive pulmonary disease, unspecified; R91.8 Other nonspecific abnormal finding of lung field | CPT/HCPCS: 99212 ==

== ENCOUNTER 2024-10-16 10:31 | Outpatient (REF) | payer OTHER, SELFPAY ==
--- OUTSIDE RECORDS SUMMARY | 2024-10-16 11:12 | XMS_ITS | Encounter Summary ---
Author Organization [employer] Address [address] [facility] [address] [place] [address] Care Team Providers Care Manuscript Editor Name Role Phone Hallie Mcclendon MD Primary Care Provider [phone] Reason for Visit * Reason Comments Med Refill Encounter Details Date Type Department Care Team ([facility] st Contact Info) Description 07/13/2023 Refill [facility] [address] [place], [place] [phone] Hallie Mcclendon MD [address] [place], [place] [phone] Constipation, unspecified constipation type Social History Tobacco [...] Care Team (Late st Contact Info) Description 10/24/2024 10:15 AM EDT Office Visit [facility] [address] [place] [phone] Hallie Mcclendon MD [address] [place] [address] documented as of this encounter Visit Diagnoses Diagnosis Constipation, unspecified constipation type documented in this encounter Care Teams Manuscript Editor Relationship Specialty Start Date End Date Hallie Mcclendon MD [address] [place] [id number] PCP - General Family Medicine 03/13/18 [facility] 07/05/19 documented as of this encounter
[2024-10-16 11:35] LABS: Hemoglobin A1C 151.4596 umol/L; Total Hemoglobin (HGBA1C) 3665.2661 umol/L
[2024-10-16 12:14] LABS: Magnesium 1.6 mg/dL (1.6-2.6)
== END 2024-10-16 10:32 | disposition home or self-care (01) ==
LOC: HO.HHCL 10:31
PROVIDERS: PCP Family Medicine; Visit Provider Nurse Practitioner
DX: E83.42 Hypomagnesemia (principal); R19.5 Other fecal abnormalities; R32 Unspecified urinary incontinence
CPT/HCPCS: 36415; 83036; 83735; 87086

== ENCOUNTER 2024-12-03 11:02 | Outpatient (REF) | payer OTHER, SELFPAY ==
[2024-12-03 13:03] LABS: PSA,Total (Free>4and<10) 64.19 ng/mL (0.00-4.00)
[2024-12-03 13:30] LABS: Anion Gap 12 (12-20)
[2024-12-03 13:37] LABS: Alanine Aminotransferase 14 U/L (0-40); Albumin Level 4.3 g/dL (3.5-5.0); Alkaline Phosphatase 53 U/L (39-117); Aspartate Amino Transferase 34 U/L (5-37); Blood Urea Nitrogen 14 mg/dL (9-16); Calcium 8.9 mg/dL (8.4-10.2); Carbon Dioxide 24 mmol/L (22-29); Chloride 108 mmol/L (96-108); Cholesterol 116 mg/dL (<200); Estimated Glomerular Filt Rate > 60; HDL Cholesterol 42 mg/dL (>40); Potassium 3.4 mmol/L (3.3-5.1); Sodium 141 mmol/L (135-145); Total Protein 7.0 g/dL (6.5-8.0); Triglycerides 106 mg/dL (<150)
--- OUTSIDE RECORDS SUMMARY | 2024-12-03 13:44 | XMS_ITS | Encounter Summary ---
Author Organization [employer] Address [address] [facility] [address] [place] [address] Care Team Providers Care Ferris Wheel Attendant Name Role Phone Hallie Mcclendon MD Primary Care Provider [phone] Reason for Visit * Reason Onset Date Comments Med Refill 08/12/2024 Encounter Details Date Type Department Care Team ([facility] st Contact Info) Description 08/12/2024 Telephone [facility]INE [address] [place], [place] [phone] Hallie Mcclendon MD [address] [place], [place] [phone] Med Refill Social History Tobacco Use Types [...] Recorded Patient Health Questionnaire-2 Score 0 11/20/2023 Internet Access Answer Date Recorded Internet Access Q1 No 07/09/2024 Internet Access Q2 I do not want or need it 06/12 Sex and Gender Information Value Date Recorded Sex Assigned at Male 01/10/2022 10:15 AM EDT Legal Sex Male 10:15 AM EDT Gender Identity Male 01/10/2022 10:15 AM EDT Sexual Orientation Straight 01/10/2022 10 :15 AM EDT documented as of this encounter Miscellaneous Notes * Telephone Encounter - Giovanna Johnson LPN - 08/12/2024 10:26 AM EDT Medication was sent to [facility] on 07/30/24 #90 with 3 refills. * Telephone Encounter - Wally Garcia - 08/12/2024 10:14 AM EDT TC from pt requesting medication refill. Medications needing refill: omeprazole (PriLOSEC) [address] capsule Multiple Vitamin (Multivitamin) tablet To be sent to: [facility] - [place], [place] - [address] [place] [address] documented in this encounter Plan of Treatment Upcoming Encounters Date Type Department Care Team ([facility] st Contact Info) Description 01/20/2025 10:00 AM EST Office Visit [facility] [address] [place] [address] Hallie Mcclendon MD [address] [facility] [place] [address] documented as of this encounter Visit Diagnoses Not on filedocumented in this encounter Additional Health Concerns Assessment Noted Time PHQ-9 Depression Total Score: 0 11/20/19 24 9:22 AM EDT documented as of this encounter Care Teams Ferris Wheel Attendant Relationship Specialty Start Date End Date Hallie Mcclendon MD [address] [place] [id number] PCP - General Family Medicine 03/13/18 [facility] 07/05/19 documented as of this encounter
--- OUTSIDE RECORDS SUMMARY | 2024-12-03 13:44 | XMS_ITS | Encounter Summary ---
Author Organization [employer] Address [address] [facility] 7t [place] [address] Care Team Providers Care Florist Supplies Salesperson Name Role Phone Hallie Mcclendon MD Primary Care Provider [phone] Reason for Referral * Consultation (Routine) - Authorized Specialty Diagnoses / Procedures Referred By Contangel t Referred To Contact Pharmacy Diagnoses Hypertension iKersten Burkett MD [address] [place] [address] Phone: tel: fax: Referral ID Status Reason Start Date Expiration Date Visits Requested Visits Authorized [id number] Authorized Continuity of Care 07/18/2024 07/18/2025 6 6 Encounter Details Date Type Department Care Team (Late st Contact Info) Description 07/17/2024 Orders Only [facility] [address] [place], [place] [phone] Kiersten Burkett MD [address] [place], [place] [phone] Hypertension (Primary Dx) Social History Tobacco Use Types Packs/Day Years [...] Care Team (Late st Contact Info) Description 01/20/2025 10:00 AM EST Office Visit [facility] [address] [place] [address] Hallie Mcclendon MD [address] [place] [address] Scheduled Referrals Name Type Priority Associated Diagnoses Orde r Schedule Referral to Pharmacy [place] Outpatient Referral Routine Hypertension Ordered: 07/18/2024 documented as of this encounter Visit Diagnoses Diagnosis Hypertension- Primary Unspecified essential hypertension documented in this encounter Additional Health Concerns Assessment Noted Time PHQ-9 Depression Total Score: 0 11/20/19 24 9:22 AM EDT documented as of this encounter Care Teams Florist Supplies Salesperson Relationship Specialty Start Date End Date Hallie Mcclendon MD [address] [place] [address] PCP - General Family Medicine 03/13/18 [facility] 07/05/19 documented as of this encounter
--- OUTSIDE RECORDS SUMMARY | 2024-12-03 13:44 | XMS_ITS | Encounter Summary ---
Author Organization [employer] Address [address] [facility] 7t [place] [address] Care Team Providers Care Multiple Drum Sander Helper Name Role Phone Hallie Mcclendon MD Primary Care Provider [phone] Reason for Visit * Reason Comments Med Refill Encounter Details Date Type Department Care Team ([facility] st Contact Info) Description 07/13/2023 Refill [facility] [address] [place], [place] [phone] Hallie Mcclendon MD [address] [place], [place] [phone] Constipation, unspecified constipation type Social History Tobacco [...] Description 01/20/2025 10:00 AM EST Office Visit [facility] [address] [place] [address] Hallie Mcclendon MD [address] [place] [address] documented as of this encounter Visit Diagnoses Diagnosis Constipation, unspecified constipation type documented in this encounter Care Teams Multiple Drum Sander Helper Relationship Specialty Start Date End Date Hallie Mcclendon MD [address] [place] [address] PCP - General Family Medicine 03/13/18 [facility] 07/05/19 documented as of this encounter
--- OUTSIDE RECORDS SUMMARY | 2024-12-03 13:44 | XMS_ITS | Encounter Summary ---
Author Organization [employer] Address [address] [facility] 7t [place] [address] Care Team Providers Care Application Support Administrator Name Role Phone Hallie Mcclendon MD Primary Care Provider [phone] Reason for Visit * Reason Comments Med Refill Encounter Details Date Type Department Care Team ([facility] st Contact Info) Description 07/13/2023 Refill [facility] 230 [place], [place] [phone] Hallie Mcclendon MD [address] [place], [place] [phone] Constipation, unspecified constipation type Social History Tobacco [...] Description 01/20/2025 10:00 AM EST Office Visit [facility] [address] [place] [address] Hallie Mcclendon MD [address] [place] [address] documented as of this encounter Visit Diagnoses Diagnosis Constipation, unspecified constipation type documented in this encounter Care Teams Application Support Administrator Relationship Specialty Start Date End Date Hallie Mcclendon MD [address] [place] [address] PCP - General Family Medicine 03/13/18 [facility] 07/05/19 documented as of this encounter
--- OUTSIDE RECORDS SUMMARY | 2024-12-03 13:44 | XMS_ITS | Encounter Summary ---
Author Organization [employer] Address [address] [facility] 7t [place] [address] Care Team Providers Care Carbon Blocks Press Operator Name Role Phone Hallie Mcclendon MD Primary Care Provider Encounter Details Date Type Department Care Team ([facility] st Contact Info) Description 10/16/2024 Results Follow-Up [facility] MED[facility]INE 230 [place] [address] Alem Corley NP [address] [place] [address] POCT urinalysis dipstick manually resulted, Hemoglobin A1c, Magnesium Social History Tobacco Use Types Packs/Day Years [...] Description 01/20/2025 10:00 AM EST Office Visit [facility] MED[facility] [address] [place] [address] Hallie Mcclendon MD [address] [place] [address] documented as of this encounter Visit Diagnoses Not on filedocumented in this encounter Additional Health Concerns Assessment Noted Time PHQ-9 Depression Total Score: 0 11/20/19 24 9:22 AM EDT documented as of this encounter Care Teams Carbon Blocks Press Operator Relationship Specialty Start Date End Date Hallie Mcclendon MD [address] [place] [address] PCP - General Family Medicine 03/13/18 [facility] 07/05/19 documented as of this encounter
--- OUTSIDE RECORDS SUMMARY | 2024-12-03 13:44 | XMS_ITS | Encounter Summary ---
Author Organization [employer] Address [address] [facility] 7t [place] [address] Care Team Providers Care Sawing And Assembly Supervisor Name Role Phone Hallie Mcclendon MD Primary Care Provider [phone] Reason for Visit * Reason Onset Date Comments FYI 09/26/2024 Encounter Details Date Type Department Care Team ([facility] st Contact Info) Description 09/26/2024 Telephone [facility] 230 [place], [place] [phone] Hallie Mcclendon MD [address] [place], [place] [phone] FYI Social History Tobacco Use Types Packs/Day Years [...] encounter Miscellaneous Notes * Telephone Encounter - Gumaro Warner - 09/26/2024 4:11 PM EDT TC Jenae with [facility] wanting to report that they will be holding pt's metoprolol due to b/p being 84/52 documented in this encounter Plan of Treatment Upcoming Encounters Date Type Department Care Team (Late st Contact Info) Description 01/20/2025 10:00 AM EST Office Visit [facility] [address] [place] [address] Hallie Mcclendon MD [address] [place] [address] documented as of this encounter Visit Diagnoses Not on filedocumented in this encounter Additional Health Concerns Assessment Noted Time PHQ-9 Depression Total Score: 0 11/20/19 24 9:22 AM EDT documented as of this encounter Care Teams Sawing And Assembly Supervisor Relationship Specialty Start Date End Date Hallie Mcclendon MD [address] [place] [address] PCP - General Family Medicine 03/13/18 [facility] 4/24/20 documented as of this encounter
--- OUTSIDE RECORDS SUMMARY | 2024-12-03 13:44 | XMS_ITS | Encounter Summary ---
Author Organization [employer] Address [address] [facility] 7t [place] [address] Care Team Providers Care Slip Feeder Name Role Phone Hallie Mcclendon MD Primary Care Provider [phone] Encounter Details Date Type Department Care Team ([facility] st Contact Info) Description 04/27/2023 Orders Only [facility]INE [address] [place] [address] Hallie Mcclendon MD [address] [place] [address] Social History Tobacco Use Types Packs/Day Years [...] Description 01/20/2025 10:00 AM EST Office Visit [facility] [address] [place] [address] Hallie Mcclendon MD [address] [place] [address] documented as of this encounter Visit Diagnoses Not on filedocumented in this encounter Care Teams Slip Feeder Relationship Specialty Start Date End Date Hallie Mcclendon MD [address] [place] [address] PCP - General Family Medicine 03/13/18 [facility] 07/05/19 documented as of this encounter
--- OUTSIDE RECORDS SUMMARY | 2024-12-03 13:44 | XMS_ITS | Encounter Summary ---
Author Organization [employer] Address [address] [facility] 7t [place] [address] Care Team Providers Care Senior Revenue Accountant Name Role Phone Hallie Mcclendon MD Primary Care Provider [phone] Reason for Visit * Reason Onset Date Comments Med Refill 09/15/2023 Encounter Details Date Type Department Care Team ([facility] st Contact Info) Description 09/15/2023 Telephone [facility]INE 230 [place], [place] [phone] Hallie Mcclendon MD 230 [place], [place] [phone] Med Refill Social History Tobacco Use Types [...] refill : cholecalciferol (Vitamin D-3) 50 MCG (1999 UT) tablet and omega-3 1000MG capsule capsule To be sent to: [facility] [place], [place] - [address] [place] [address] documented in this encounter Plan of Treatment Upcoming Encounters Date Type Department Care Team (Late st Contact Info) Description 01/20/2025 10:00 AM EST Office Visit [facility] 230 [place] [address] Hallie Mcclendon MD [address] [place] [address] documented as of this encounter Visit Diagnoses Not on filedocumented in this encounter Additional Health Concerns Assessment Noted Time PHQ-9 Depression Total Score: 0 08/09/19 24 9:27 AM EDT documented as of this encounter Care Teams Senior Revenue Accountant Relationship Specialty Start Date End Date Hallie Mcclendon MD [address] [place] [address] PCP - General Family Medicine 03/13/18 [facility] 07/05/19 documented as of this encounter
--- OUTSIDE RECORDS SUMMARY | 2024-12-03 13:44 | XMS_ITS | Encounter Summary ---
Author Organization [employer] Address [address] [facility] 7t [place] [address] Care Team Providers Care Apartment Maintenance Name Role Phone Hallie Mcclendon MD Primary Care Provider [phone] Reason for Visit * Reason Comments Med Refill Encounter Details Date Type Department Care Team (Late st Contact Info) Description 06/14/2022 Refill [facility] [address] [place], [place] [phone] Hallie Mcclendon MD 230 [place], [place] [phone] Anemia in other chronic diseases classified elsewhere [...] Department Care Team (Late Contact Info) Description 01/20/2025 10:00 AM EST Office Visit [facility] 230 [place], [place] [phone] Hallie Mcclendon MD 230 [place], [place] [phone] documented as of this encounter Visit Diagnoses Diagnosis Anemia in other chronic diseases classified elsewhere documented in this encounter Care Teams Apartment Maintenance Relationship Specialty Start Date End Date Hallie Mcclendon MD [address] [place] [address] PCP - General Family Medicine 03/13/18 [facility] 07/05/19 documented as of this encounter
--- OUTSIDE RECORDS SUMMARY | 2024-12-03 13:44 | XMS_ITS | Encounter Summary ---
Author Organization [employer] Address [address] [facility] 7t [place] [address] Care Team Providers Care Service Person Name Role Phone Hallie Mcclendon MD Primary Care Provider [phone] Encounter Details Date Type Department Care Team (Late st Contact Info) Description 12/03/2024 Orders Only GENERIC EXTERNAL DATA DEPARTMENT Provider, Generic External Data Social History Tobacco Use Types Packs/Day Years [...] Description 01/20/2025 10:00 AM EST Office Visit [facility] 230 [place], [place] [phone] Hallie Mcclendon MD [address] [place] [address] documented as of this encounter Procedures Procedure Name Priority Date/Time Associated Diagnosis Comments PSA, TOTAL WITH REFLEX TO PSA, FREE Routine 12/03/2024 11:26 AM EDT documented in this encounter Results * (ABNORMAL) PSA, Total With Reflex to PSA, Free (12/03/2024 11:26 AM EDT) PSA,Total (Free>4and<10) 64.19(H ) 0.00 - 4.00 ng/mL [facility] Comment:A Free PSA was not p [...] methodology: [place] i ChemiluminescentMicroparticle Immunoassay (CMIA) 12/03/2024 11:2 6 AM EDT 12/03/2024 11:26 AM EDT us Generic External Data Provider LAB BLOOD ORDERAB LES Final Result [facility] [address] [place] [address] [phone] documented in this encounter Visit Diagnoses Not on filedocumented in this encounter Additional Health Concerns Assessment Noted Time PHQ-9 Depression Total Score: 0 11/20/19 24 9:22 AM EDT documented as of this encounter Care Teams Service Person Relationship Specialty Start Date End Date Hallie Mcclendon MD [address] [place] [address] PCP - General Family Medicine 03/13/18 [facility] 07/05/19 documented as of this encounter
--- OUTSIDE RECORDS SUMMARY | 2024-12-03 13:44 | XMS_ITS | Encounter Summary ---
Author Organization [employer] Address [address] [facility] 7t [place] [address] Care Team Providers Care Curator Of Manuscripts Name Role Phone Hallie cMclendon MD Primary Care Provider [phone] Reason for Referral * Consultation (Urgent) - Closed Specialty Diagnoses / Procedures Referred By Mya t Referred To Contact Orthopaedic Surgery Diagnoses Left forearm pain Fall, subsequent encounter Hallie Mcclendon MD [address] [place] [address] Phone: tel: fax: [facility] [address] [place] [address] Phone: tel: Referral ID Status Reason Start Date Expiration Date V isits Requested Visits Authorized [id number] Closed Specialty Services Required 09/22/2023 09/21/2024 1 1 Encounter Details Date Type Department Care Team (Late st Contact Info) Description 09/22/2023 Orders Only [facility] MEDICINE [address] [place], [place] [phone] Hallie Mcclendon MD [address] [place], [place] [phone] Left forearm pain (Primary Dx); Fall, subsequent [...] 01/20/2025 10:00 AM EST Office Visit [facility]INE [address] [place] [address] Hallie Mcclendon MD [address] [place] [address] Scheduled Referrals Name Type Priority Associated Diagnoses [...] documented as of this encounter Care Teams Curator Of Manuscripts Relationship Specialty Start Date End Date Hallie Mcclendon MD [address] [place] [address] PCP - General Family Medicine 03/13/18 [facility] 07/05/19 documented as of this encounter
--- OUTSIDE RECORDS SUMMARY | 2024-12-03 13:44 | XMS_ITS | Encounter Summary ---
Author Organization [employer] Address [address] [facility] 7t [place] [address] Care Team Providers Care Special Agent In Charge Name Role Phone Hallie Mcclendon MD Primary Care Provider [phone] Reason for Visit * Reason Comments Med Refill Encounter Details Date Type Department Care Team ([facility] st Contact Info) Description 05/14/2024 Refill [facility]INE 230 [place], [place] [phone] Hallie Mcclendon MD [address] [place], [place] [phone] Social History Tobacco Use Types Packs/Day Years [...] 01/20/2025 10:00 AM EST Office Visit [facility] [address] [place] [address] Hallie Mcclendon MD [address] [place] [address] documented as of this encounter Visit Diagnoses Not on filedocumented in this encounter Additional Health Concerns Assessment Noted Time PHQ-9 Depression Total Score: 0 11/20/19 24 9:22 AM EDT documented as of this encounter Care Teams Special Agent In Charge Relationship Specialty Start Date End Date Hallie Mcclendon MD [address] [place] [address] PCP - General Family Medicine 03/13/18 [facility] 07/05/19 documented as of this encounter
--- OUTSIDE RECORDS SUMMARY | 2024-12-03 13:44 | XMS_ITS | Encounter Summary ---
Author Organization [employer] Address [address] [facility] 7t [place] [address] Care Team Providers Care Oracle Technical Developer Name Role Phone Hallie Mcclendon MD Primary Care Provider Encounter Details Date Type Department Care Team ([facility] st Contact Info) Description 04/05/2024 Orders Only [facility] [address] [place] [address] Hallie Mcclendon MD [address] [place] [address] Social History Tobacco Use Types Packs/Day Years [...] Office Visit [facility] [address] [place] [address] Hallie Mcclendon MD [address] [place] [address] documented as of this encounter Visit Diagnoses Not on filedocumented in this encounter Additional Health Concerns Assessment Noted Time PHQ-9 Depression Total Score: 0 11/20/19 24 9:22 AM EDT documented as of this encounter Care Teams Oracle Technical Developer Relationship Specialty Start Date End Date Hallie Mcclendon MD [address] [place] [address] PCP - General Family Medicine 03/13/18 [facility] 07/05/19 documented as of this encounter
--- OUTSIDE RECORDS SUMMARY | 2024-12-03 13:44 | XMS_ITS | Clinical Summary ---
Author Organization [employer] Address [address] [place] [address] [address] [place] [address] Care Team Providers Care Camera Engineer Name Role Phone Hallie Mcclendon MD Primary Care Provider [phone] Allergies No known active allergies Medications traZODone (Desyrel) 50 MG tablet Take 50 mg by mouth at bedtime. 03/11/20 22 Active QUEtiapine (SEROquel) 100 MG tablet Take 1 tablet by mouth at bedtime. Active albuterol (2.5 MG/3ML) 0.083% nebulizer solution [...] mouth in the evening. 01/25/20 22 Active Fluticasone-Um eclidin-Vilant (Trelegy Ellipta) 200-62.5-25 MCG/ACT aerosol powder Inhale 1 puff at bed time. Active theophylline ER (Uniphyl) 400 MG 24 hr tablet Take 1 tablet by mouth in the morning. Active finasteride (Proscar) 5 MG tablet Take 1 tablet by mouth at bed time. Active sacubitril-gwen sartan (Entresto) 49-51 MG tablet Take 1 tablet by mouth in the morning and at bedtime. Active cyanocobalamin (Vitamin B-12) 1000 MCG tablet TAKE 1 TABLET BY MOUTH EVERY MORNING 90 tablet 3 10/18/19 23 Active Additional Information Patient not taking.Reported on 07/18/2024 furosemide (Lasix) 20 MG tablet Take 20 mg by mouth in the morning. 09/11/19 24 Active alendronate (Fosamax) 70 MG tablet take 1 tablet once a week with 6 to 8 oz of water 30 min before first food of day. do not lie down for 30 minutes 4 tablet 11 03/18/19 25 Active atorvastatin (Lipitor) 40 MG tablet Take 1 tablet (40 mg) by mouth at bedtime. 90 tablet 3 04/06/19 25 Active QUEtiapine (SEROquel) 25 MG tablet Take 1 tablet by mouth 2 times daily. 07/09/19 25 Active sertraline (Zoloft) 100 MG tablet Take 1.5 tablets by mouth Once per day. Active metoprolol tartrate (Lopressor) 25 MG tablet Take 0.5 tablets by mouth 2 times daily. 07/24/19 25 Active Multiple Vitamin (Multivitamin) tablet TAKE 1 TABLET BY MOUTH EVERY MORNING WITH FOOD 90 tablet 3 07/31/19 25 Active omeprazole (PriLOSEC) [address] capsuleIndicat ions:Gastroeso phageal reflux disease, unspecified whether esophagitis present TAKE 1 TABLET BY MOUTH EVERY MORNING 90 capsule 3 07/31/19 25 Active cholecalcifero l VITAMIN D (Vitamin D-3) 50 MCG (1999 UT) tabletIndicati ons:Vitamin deficiency TAKE 1 TABLET BY MOUTH EVERY MORNING 30 tablet 5 10/12/19 25 Active omega-3 acid ethyl esters (Lovaza) 1 g capsuleIndicat ions:Hyperlipi demia, unspecified TAKE 1 CAPSULE BY MOUTH TWICE DAILY IN THE MORNING AND IN THE EVENING 60 capsule 10/12/19 25 Active Acetaminophen Extra Strength 500 MG tablet TAKE 1 TO 2 TABLETS BY MOUTH EVERY 8 HOURS NEEDED FOR PAIN OR FEVER 90 tablet 1 10/26/19 25 Active Ferrous Sulfate (iron) 325 (65 Fe) MG tabletIndicati ons:Anemia, unspecified type TAKE 1 TABLET BY MOUTH DAILY IN THE MORNING 30 tablet 11/15/19 25 Active Ascorbic Acid (vitamin C) 250 MG tabletIndicati ons:Anemia, unspecified type TAKE 1 TABLET BY MOUTH DAILY IN THE MORNING 30 tablet 11/15/19 25 Active Ascorbic Acid (vitamin C) 250 MG tabletIndicati ons:Anemia, unspecified type TAKE 1 TABLET BY MOUTH EVERY MORNING 30 tablet 09/20/19 25 025 Discontinued Ferrous Sulfate (iron) 325 (65 Fe) MG tabletIndicati ons:Anemia, unspecified type TAKE 1 TABLET BY MOUTH EVERY MORNING 30 tablet 09/20/19 25 025 Discontinued Active Problems Problem Noted Date Diagnosed Date Aspiration pneumonia 08/01/2024 Assessment & Plan (08/01/2024 11:03 AM EDT): Seems to be resolved Hypomagnesemia 08/01/2024 Assessment & Plan (10/28/2024 5:34 PM EDT): Magnesium level will be checked patient will be contacted with results Assessment & Plan (08/01/2024 11:03 AM EDT): Magnesium level will be checked patient will be contacted with results Hypertriglyceridemia 04/06/2024 Assessment & Plan (04/06/2024 7:02 [...] modifications Pulmonary fibrosis 08/09/2023 Assessment & Plan (10/28/2024 5:35 PM EDT): - following with [facility] pulmonology - quit smoking 7 months ago Assessment & Plan (04/06/2024 6:43 AM EST): - following with [facility] pulmonology - quit smoking 7 months ago Assessment & Plan (11/20/2023 10:12 AM EDT): - following with [facility] pulmonology - quit smoking 4 months ago Assessment & Plan (08/11/2023 6:11 PM EDT): - following with [facility] pulmonology Family history of colon cancer 08/04/2023 GERD (gastroesophageal reflux disease) History of sphincterotomy of sphincter of Oddi 0 08/04/2023 Sessile colonic polyp 08/04/2023 Assessment & Plan (11/20/2023 10:15 AM EDT): - seen by [facility], and is being scheduled for colonoscopy in September 2023 Assessment & Plan (08/11/2023 6:12 PM EDT): - seen by [facility], and is being scheduled for colonoscopy in September 2023 History of substance use disorder 08/04/2023 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 -Continue current medications: Metoprolol succinate 25 mg daily (mainly started for tachycardia); furosemide 20 mg daily; Entresto -Follow up in 3-6 mo, sooner if any problem arises Assessment & Plan (04/06/2024 7:08 AM EST): [...] modifications Elevated PSA 04/21/2022 Assessment & Plan (10/28/2024 5:34 PM EDT): - 08/29/22 [facility] biopsy pathology report - BPH. Commented as below: Basal cell hyperplasia and areas with urothelium are seen in multiple biopsies (A, E, H for example). The atypical focus in part C lacks basal cells but doesn't have any racemase immunoreactivity - nevertheless, it's very worrisome for carcinoma. - continue following with urologist Assessment & Plan (04/02/2024 11:47 AM EST): [...] and right lower lobe. -recently seen by foxing closer. Because there was no pulmonary nodule, surveillance [...] and right lower lobe. -recently seen by foxing closer. Because there was no pulmonary nodule, surveillance [...] and right lower lobe. -recently seen by foxing closer. Because there was no pulmonary nodule, surveillance [...] and right lower lobe. -recently seen by foxing closer. Because there was no pulmonary nodule, surveillance [...] with reduced ejection fraction Assessment & Plan (10/24/2024 4:10 PM EDT): -Human Resources Talent Manager: RADHA, last seen in July 2023 -nuclear stress test in June 2021 which was not diagnostic for ischemia -09/08/21 TTE Moderate global hypokinesis. LVEF 30-35%. Moderate aortic regurgitation. -07/05/22 Echocardiogram results showed EF 25-30%. LV size and wall thickness are normal. Mid to distal, anterior, anteroseptal, and apical espino are akinetic. Mild aortic regurgitation. -07/04/23 echocardiogram: Mod global hypokynesis. [id number]%. Mild-to-mod aortic regurgitation. No . Mild thickening of anterior and posterior mitral valve leaflets. No pulmonary hypertension. -current medications: Entresto 49 mg-51 mg BID, aspirin 81 mg daily; metoprolol succinate 25 mg daily; furosemide 20 mg daily - Patient was evaluated for ICD / BiV Devices. Currently still being an option, but not urgent per electrician's helper. Reassess in 6 mo follow up and 12-mo TTE per electrician's helper. - Continuing optimizing risk factor management, medication adherence, and working on lifestyle modifications - Psychiatric medications cause prolonged QT. Monitor closely. Assessment & Plan (04/06/2024 7:07 AM EST): -Human Resources Talent Manager: RADHA, last seen in July 2023 -nuclear stress test in June 2021 which was not diagnostic for ischemia -09/08/21 TTE Moderate global hypokinesis. LVEF 30-35%. Moderate aortic regurgitation. -07/05/22 Echocardiogram results showed EF 25-30%. LV size and wall thickness are normal. Mid to distal, anterior, anteroseptal, and apical espino are akinetic. Mild aortic regurgitation. -07/04/23 echocardiogram: Mod global hypokynesis. [id number]%. Mild-to-mod aortic regurgitation. No . Mild thickening of anterior and posterior mitral valve leaflets. No pulmonary hypertension. -current medications: Entresto 49 mg-51 mg BID, aspirin 81 mg daily; metoprolol succinate 25 mg daily; furosemide 20 mg daily - Patient was evaluated for ICD / BiV Devices. Currently still being an option, but not urgent per electrician's helper. Reassess in 6 mo follow up and 12-mo TTE per electrician's helper. - Continuing optimizing risk factor management, medication adherence, and working on lifestyle modifications - Psychiatric medications cause prolonged QT. Monitor closely. Assessment & Plan (11/20/2023 10:15 AM EDT): -Human Resources Talent Manager: RADHA, last seen on 07/12/22. -nuclear stress test in June 2021 which was not diagnostic for ischemia -09/08/21 TTE Moderate global hypokinesis. LVEF 30-35%. Moderate aortic regurgitation. -07/05/22 Echocardiogram results showed EF 25-30%. LV size and wall thickness are normal. Mid to distal, anterior, anteroseptal, and apical espino are akinetic. Mild aortic regurgitation. -07/04/23 echocardiogram: Mod global hypokynesis. [id number]%. Mild-to-mod aortic regurgitation. No . Mild thickening of anterior and posterior mitral valve leaflets. No pulmonary hypertension. -current medications: Entresto 49 mg-51 mg BID, aspirin 81 mg daily; metoprolol succinate 25 mg daily - Patient was evaluated for ICD / BiV Devices. Currently still being an option, but not urgent per electrician's helper. Reassess in 6 mo follow up and 12-mo TTE per electrician's helper. - Continuing optimizing risk factor management, medication adherence, and working on lifestyle modifications - Psychiatric medications cause prolonged QT. Monitor closely. Assessment & Plan (08/09/2023 4:53 AM EDT): -Human Resources Talent Manager: RADHA, last seen on 07/12/22. -nuclear stress [...] being an option, but not urgent per electrician's helper. Reassess in 6 mo follow up and 12-mo TTE per electrician's helper. - Continuing optimizing risk factor management, medication adherence, and working on lifestyle modifications - Psychiatric medications cause prolonged QT. Monitor closely. Assessment & Plan (03/30/2023 6:30 AM EST): -Human Resources Talent Manager: RADHA, last seen on 07/12/22. -nuclear stress [...] being an option, but not urgent per electrician's helper. Reassess in 6 mo follow up and 12-mo TTE per electrician's helper. - Continuing optimizing risk factor management, medication adherence, and working on lifestyle modifications - Psychiatric medications cause prolonged QT. Monitor closely. Assessment & Plan (08/05/2022 11:37 AM EDT): -Human Resources Talent Manager: RADHA, last seen on 07/12/22. -nuclear stress [...] being an option, but not urgent per electrician's helper. Reassess in 6 mo follow up and 12-mo TTE per electrician's helper. - Continuing optimizing risk factor management, medication [...] now interested in ICD or BiV Devices -Human Resources Talent Manager: RADHA, last seen on 11/24/21 and 12/29/21. Referred for biventricular device placement evaluation. Pt declined ICD or BiV devices. Continuing medical management with Entresto. -nuclear stress test in June 2021 which was not diagnostic for ischemia -due to his low EF, pacemaker may be indicated -follow-up with electrician's helper as scheduled -continue working on lifestyle modifications / risk factor management / medication adherence -psychiatric medication also causes prolonged QT. PCP requested his psychiatrist to review his medications and adjust if possible Benign prostatic hyperplasia 10/27/2015 Assessment & Plan (10/28/2024 5:34 PM EDT): -followed by Urologist, Dr. Molina for [...] -continue tamsulosin, and finasteride Assessment & Plan (04/06/2024 6:49 AM EST): [...] Plan (08/09/2023 4:54 AM EDT): -followed by UrologistDr. Molina for [...] Plan (08/03/2022 10:22 AM EDT): -followed by Urologist, Dr. Molina for PSA/BPH, last seen on 07/14/22. [...] on buprenorphine - continue current recovery support Biliary calculus 05/06/2014 Assessment & Plan (11/20/2023 [...] - Consider intensifying statin therapy and/or changing [place] 3 to icosapent ethyl. Assessment & Plan [...] EST): -followed by psychiatrist, Dr. Vazquez at [facility] -continue Trazodone, Sertaline and Quetiapine with caution (DDI ? prolonged OTc) - continue animal therapy with dog / insulation installer animal Assessment & Plan (11/20/2023 10:26 AM EDT): -followed by psychiatrist, Dr. Vazquez at [facility] -continue Trazodone, Seroquel and Quetiapine with caution (DDI ? prolonged OTc) -requested psychiatrist to review and adjust medications if possible due to his heart failure. Assessment & Plan (08/05/2022 10:20 AM EDT): -followed by psychiatristDr. Vazquez at [facility] -continue Trazodone, Seroquel and Quetiapine with caution (DDI ? prolonged OTc) -requested psychiatrist to review and adjust medications if possible due to his heart failure. Assessment & Plan (04/21/2022 9:30 AM EST): -followed by psychiatristDr. Vazquez at [facility] -continue Trazodone, Seroquel and Quetiapine with caution (DDI ? prolonged OTc) -requested psychiatrist to review and adjust medications if possible due to his heart failure. 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 Bocanegra in Feb 2024 -Last exacerbation in Nov 2022. Prescribed Augmentin by foxing closer. -exacerbation frequency 4 times per year -Hx intubation, mainly for overdose (opioid and BZD) -PFT 03/25/20 Bronchial asthma -continue Fluticasone / umeclidinium / vilanterol as directed -continue theophylline as prescribed -Proper mouth care discussed again -Continue albuterol HFA and nebulizer prn as rescue -Continue smoking cessation effort and maintaining abstinence Assessment & Plan (04/06/2024 6:46 AM EST): -followed by [facility] foxing closer, last seen by Dr. Bocanegra in Feb 2024 -Last exacerbation in Nov 2022. Prescribed Augmentin by foxing closer. -exacerbation frequency 4 times per year -Hx intubation, mainly for overdose (opioid and BZD) -PFT 03/25/20 Bronchial asthma -continue Fluticasone / umeclidinium / vilanterol as directed -continue theophylline as prescribed -Proper mouth care discussed again -Continue albuterol HFA and nebulizer prn as rescue -Continue smoking cessation effort and maintaining abstinence Assessment & Plan (11/20/2023 10:13 AM EDT): -followed by [facility] foxing closer, last seen on 03/23/23. -Last exacerbation in Nov 2022. Prescribed Augmentin by foxing closer. -exacerbation frequency 4 times per year -Hx intubation, mainly for overdose (opioid and BZD) -PFT 03/25/20 Bronchial asthma -continue Fluticasone / umeclidinium / vilanterol as directed -continue theophylline as prescribed -Proper mouth care discussed again -Continue albuterol HFA and nebulizer prn as rescue -Work on smoking cessation Assessment & Plan (08/09/2023 4:52 AM EDT): >>ASSESSMENT AND PLAN FOR CHRONIC OBSTRUCTIVE LUNG DISEASE ([facility]) WRITTEN ON 08/03/2022 10:23 AM BY BUTCH REDMOND -followed by [facility] foxing closer, last seen on 04/07/22. -Last exacerbation in February 2022, bronchitis exacerbation. Rx azithromycin and annual CT Scan. Pt to continue Anoro and theophylline -Pt had 2 antibiotic courses for aspiration pneumonia in Mar / Apr 2021 and 1 antibiotic / prednisone for COPD exacerbation in May 2021 -exacerbation frequency 5 times per year (3538-5786) -Hx intubation, mainly for overdose (opioid and BZD) -PFT 03/25/20 Bronchial asthma -continue Trelegy as directed -continue theophylline as prescribed -Proper mouth care discussed again -Continue albuterol HFA and nebulizer prn as rescue -Work on smoking cessation Assessment & Plan (08/09/2023 4:52 AM EDT): >>ASSESSMENT AND PLAN FOR CHRONIC OBSTRUCTIVE LUNG DISEASE ([facility]) WRITTEN ON 04/01/2023 6:48 AM BY HALLIE MCCLENDON MD -followed by [facility] foxing closer, last seen on 03/23/23. -Last exacerbation in Nov 2022. Prescribed Augmentin by foxing closer. -exacerbation frequency 4 times per year -Hx intubation, mainly for overdose (opioid and BZD) -PFT 03/25/20 Bronchial asthma -continue Fluticasone / umeclidinium / vilanterol as directed -continue theophylline as prescribed -Proper mouth care discussed again -Continue albuterol HFA and nebulizer prn as rescue -Work on smoking cessation Assessment & Plan (08/11/2023 6:11 PM EDT): -followed by [facility] foxing closer, last seen on 03/23/23. -Last exacerbation in Nov 2022. Prescribed Augmentin by foxing closer. -exacerbation frequency 4 times per year -Hx [...] ASTHMA WITH COPD (CHRONIC OBSTRUCTIVE PULMONARY DISEASE) ([facility]) WRITTEN ON 04/21/2022 9:31 AM BY BUTCH REDMOND -followed by [facility] foxing closer, last seen on 04/07/22 -Last exacerbation in February 2022, bronchitis exacerbation. Rx azithromycin and annual CT Scan. Pt to continue Anoro and theophylline -Pt had 2 antibiotic courses for aspiration pneumonia in Mar / Apr 2021 and 1 antibiotic / prednisone for COPD exacerbation in May 2021 -exacerbation frequency 5 times per year (1811-2094) -Hx intubation, mainly for overdose (opioid and BZD) -PFT 03/25/20 Bronchial asthma -continue Trelegy as directed -continue theophylline as prescribed -Proper mouth care discussed again -Continue albuterol HFA and nebulizer prn as rescue -Work on smoking cessation >>ASSESSMENT AND PLAN FOR CHRONIC OBSTRUCTIVE LUNG DISEASE ([facility]) WRITTEN ON 04/21/2022 9:31 AM BY BUTCH REDMOND -followed by [facility] foxing closer, last seen on 04/07/22. -Last exacerbation in February 2022, bronchitis exacerbation. Rx azithromycin and annual CT Scan. Pt to continue Anoro and theophylline -Pt had 2 antibiotic courses for aspiration pneumonia in Mar / Apr 2021 and 1 antibiotic / prednisone for COPD exacerbation in May 2021 -exacerbation frequency 5 times per year (4412-2712) -Hx intubation, mainly for overdose (opioid and BZD) -PFT 03/25/20 Bronchial asthma -continue Trelegy as directed -continue theophylline as prescribed -Proper mouth care discussed again -Continue albuterol HFA and nebulizer prn as rescue -Work on smoking cessation Schizophrenia 07/19/2011 Assessment & Plan (10/28/2024 5:34 PM EDT): -followed by psychiatristDr. Vazquez at [facility] -continue Trazodone, Sertraline and Quetiapine with caution (DDI ? prolonged OTc) -animal therapy with dog has been effective. Letter for insulation installer animal / therapy animal was signed and given to the patient. Assessment & Plan (04/06/2024 7:05 AM EST): -followed by psychiatristDr. Vazquez at [facility] -continue Trazodone, Sertraline and Quetiapine with caution (DDI ? prolonged OTc) -animal therapy with dog has been effective. Letter for insulation installer animal / therapy animal was signed and given to the patient. Assessment & Plan (11/20/2023 10:24 AM EDT): -followed by psychiatristDr. Vazquez at [facility] -continue Trazodone, Seroquel and Quetiapine with caution (DDI ? prolonged OTc) -requested psychiatrist to review and adjust medications if possible due to his heart failure. Assessment & Plan (08/09/2023 4:56 AM EDT): -followed by psychiatrDr. Taylor castañeda at [facility] -continue Trazodone, Seroquel and Quetiapine with caution (DDI ? prolonged OTc) -requested psychiatrist to review and adjust medications if possible due to his heart failure. Assessment & Plan (08/05/2022 10:20 AM EDT): -followed by psychiatrDr. Taylor castañeda at [facility] -continue Trazodone, Seroquel and Quetiapine with [...] METs. Pt was already seen by his foxing closer and electrician's helper again in July 2022, and was cleared [...] AM EST): -On theophylline -Continue periodic monitoring Tobacco dependence syndrome 01/15/2015 08/01/2024 Assessment & Plan (04/02/2024 11:48 AM EST): [...] using a nicotine patch -continue smoking cessation Encounters Date Type Department Care Team Description 12/03/2024 Orders Only GENERIC EXTERNAL DATA DEPARTMENT Provider, Generic External Data 11/13/2024 Refill [facility] [address] [place] [address] Hallie Mcclendon MD Anemia, unspecified type 11/13/2024 Telephone [facility] [address] [place] [phone] Hallie Mcclendon MD FYI 11/08/2024 Telephone [facility] [address] [place] [phone] Hallie Mcclendon MD FYI 10/31/2024 Telephone [facility] [address] [place] [phone] Hallie Mcclendon MD FYI 10/29/2024 Telephone [facility] [address] [place] [phone] Hallie Mcclendon MD FYI 10/25/2024 Refill [facility] [address] [place] [address] Hallie Mcclendon MD 10/24/2024 10:15 AM EDT Office Visit [address] [address] Hallie Mcclendon MD Primary hypertension (Primary Dx); Heart failure with reduced ejection fraction ([facility]); 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) ([facility]); Pulmonary fibrosis ([facility]); Elevated PSA; Benign prostatic hyperplasia with nocturia; Schizophrenia, unspecified type ([facility]); Hypomagnesemia; Encounter for monitoring of theophylline therapy; Dyslipidemia 10/24/2024 Travel 10/24/[address] [address] Hallie Mcclendon MD notes 10/23/[address] [address] Hallie Mcclendon MD chart prep 10/16/2024 9:30 AM EDT Office Visit [address] [address] Alem Corley NP Urinary incontinence, unspecified type (Primary Dx); Increased stool volume; Hypomagnesemia 10/16/2024 Results Follow-Up [address] [address] Alem Corley NP POCT urinalysis dipstick manually resulted, Hemoglobin A1c, Magnesium 10/16/2024 Travel 10/15/[address] [address] Reagan Cruz [place] CHARTPREP 10/15/[address] [address] Hallie Mcclendon MD Nurse Triage 10/11/[address] [address] Hallie Mcclendon MD Vitamin deficiency; Hyperlipidemia, unspecified 10/09/[address] [address] Hallie Mcclendon MD Nurse Triage 10/08/[address] [address] Hallie Mcclendon MD Nurse Triage 09/30/2024 Telephone [facility] [address] [place] [phone] Hallie Mcclendon MD fyi 09/29/2024 Refill [facility] [address] [place] [address] Hallie Mcclendon MD Constipation, unspecified constipation type 09/26/2024 Telephone [facility] [address] [place] [address] Hallie Mcclendon MD FYI 09/20/2024 Telephone [facility] [address] [place] [address] Hallie Mcclendon MD fyi 09/18/2024 Refill [facility] [address] [place] [address] Hallie Mcclendon MD Anemia, unspecified type 09/05/2024 Telephone [facility] [address] [place] [address] Hallie Mcclendon MD FYI 09/03/2024 Refill [facility] [address] [place] [address] Hallie Mcclendon MD Hyperlipidemia, unspecified 09/03/2024 Telephone [facility] [address] [place] [phone] Opal Williamson, DEJA NTTS Triage from Last 3 Months Immunizations Immunization Administration Dates Next Due Hep A, Adult 08/15/2018,02/14/2018 Hep B, adult 08/03/2022,06/29/2010,05/04/2009 Influenza High-dose Quadriva lent Preservative Free 01/07/2021 Influenza injectable quadriv alent IIV4 with preservative 03/22/2017,01/21/2016,12/30/2014 Influenza injectable quadriv alent preservative free 03/30/2023,04/14/2022,05/06/2014 Influenza, High Dose Seasona l, Preservative Free 01/03/2024,11/26/2018,12/06/2017 Influenza, IIV3, injectable 11/10/2010, 0,01/08/2003 Influenza, Split (incl. cynthia fied surface antigen) 12/18/2014,12/27/2011 Pfizer Covid-19 Vaccine 12+ 04/10/2024, 4 Pfizer Covid-19 Vaccine 12+ Bivalent 03/21/2022 Pneumococcal [...] Sign Reading Time Taken Comments Blood Pressure 120/60 10/24/2024 10:33 AM EDT Pulse 79 10/24/2024 10:33 AM EDT Temperature 36.1 C (97 F) 10/24/2024 10:33 AM EDT Respiratory Rate 16 10/24/2024 10:33 AM EDT Oxygen Saturation 98% 10/24/2024 10:33 AM EDT Inhaled Oxygen Concentration - - Weight 72.8 kg (160 lb 9.6 oz) 10/24/2024 10:33 AM EDT Height 160 cm (5' 3 ) 10/24/2024 10:33 AM EDT Body Mass Index 28.45 10/24/2024 10:33 AM EDT Plan of Treatment Upcoming Encounters Date Type Department Care Team (Late st Contact Info) Description 01/20/2025 10:00 AM EST Office Visit [facility] [address] [place] [address] Hallie Mcclendon MD [address] [place] [address] Health Maintenance Due Date Last Done Comments COVID-19 Vaccine ( season) 2024 04/10/2024, 03/30/2023, 03/21/2022, Additional history exists Influenza Vaccine (#1) 2024 , 03/30/2023, 04/14/2022, Additional history exists Depression Screening 11/19/2024 11/20/2023, 11/20/19 24 Alcohol/Substance Use Screening 04/02/2025 04/02/2024 SDOH Screening 07/09/2025 07/09/2024 Diabetes: Hemoglobin A1C 10/16/2025 025, 04/02/2024, 04/05/2023, Additional history exists Tobacco Screening 10/24/2025 10/24/2024 Lipid Panel 04/02/2029 12/03/2024, 03/14, 04/02/2024, Additional history exists DTaP/Tdap/Td Vaccines (3 - [...] Aged 60 years or older Completed 08/15/2023 HIB Vaccines Aged Out No longer eligi ble based on patient's age to complete this topic HPV Vaccines Aged Out No longer eligi ble based on patient's age to complete this topic IPV Vaccines Aged Out No longer eligi ble based on patient's age to complete this topic Meningococcal B Vaccine Aged Out No l onger eligible based on patient's age to complete [...] PSA, FREE Routine 12/03/2024 11:26 AM EDT TSH W/REFLEX TO FT4 Routine 12/03/2024 1 1:26 AM EDT Encounter for monitoring of theophylline therapy LIPID PANEL WITH REFLEX TO DIRECT LDL Routine 12/03/2024 11:26 AM EDT Dyslipidemia COMPREHENSIVE METABOLIC PANEL Routine 12/03/2024 11:26 AM EDT Primary hypertension MAGNESIUM Routine 10/16/2024 10:37 AM EDT Hypomagnesemia Increased stool volume HEMOGLOBIN A1C Routine 10/16/2024 10:37 AM EDT Urinary incontinence, unspecified type POCT URINALYSIS DIPSTICK Routine 10/16/2024 10:34 AM EDT Urinary incontinence, unspecified type CULTURE, URINE, ROUTINE Routine 10/16/2024 10:17 AM EDT Urinary incontinence, unspecified type from Last 3 Months Results * (ABNORMAL) PSA, Total With Reflex to PSA, Free (12/03/2024 11:26 AM EDT) PSA,Total (Free>4and<10) 64.19(H ) 0.00 - 4.00 ng/mL [facility] Comment:A Free PSA was not p [...] Provider LAB BLOOD ORDERAB LES Final Result [facility] [address] [place] [address] [phone] * Magnesium (10/16/2024 10:37 AM EDT) Magnesium 1.6 1.6 - 2.6 mg/dL [facility] Blood Venous blood specimen / Unknown 10/16/2024 10:37 AM EDT 10/16/2024 11:30 AM EDT [facility] LAB BLOOD ORDERABLES Final Resu lt Performing Organization Address [facility] Co de Phone Number [facility] [address] [place] [phone] * Hemoglobin A1c (10/16/2024 10:37 AM EDT) Hemoglobin A1c 5.9 <6.0 % [facility] Comment:Hemoglobin A1C Refer ence Range Adults: 4.8 - 6.0 % Non diabetic: < 6.0 % Goal: < 7.0 %Additional Action Suggested: > 8.0 %Note: Hemoglobin A1c results are invalid for patients with abnormal amounts of HbF. Blood transfusions may impact the HbA1c concentration in the patient sample. Estimated Average Glucose 123 mg/dL [facility] Comment:eAG = Estimated ave rage glucose which is %A1C expressed asaverage glucose, using the formula of the X3P-GuigvomApdgiph Glucose study (ADAG), Diabetes Care, Vol.31,#8,Oct. 2007 Blood Venous blood specimen / Unknown 10/16/2024 10:37 AM EDT 10/16/2024 11:14 AM EDT [facility] LAB BLOOD ORDERABLES Final Resu lt Performing Organization Address [facility] de Phone Number [facility] [address] [place] [phone] * POCT urinalysis dipstick manually resulted (10/16/2024 10:34 AM EDT) Color, UA Dark Елена Clarity, UA Clear Glucose, UA Negative Bilirubin, UA Trace Comment:small Ketones, UA Negative Spec Grav, UA 1.025 Blood, UA Negative Negative, None Detected pH, UA 6.0 Protein, UA Trace Comment:30mg/dL Urobilinogen, UA 0.2 Leukocytes, UA Trace Negative, Rare, Trace Nitrite, UA Negative Negative, None Detected Appearance, UA clear QC Media Lot # [id number] Lot# Expiration Date [id number] Urine 10/16/2024 10:3 4 AM EDT us Alem Corley ARMATURE WINDER HELPER REPAIR POINT OF CARE TEST ENTER/EDIT O RDERABLES Final Result * Culture, Urine, Routine (10/16/2024 10:17 AM EDT) Urine Urine specimen obtained by clean catch procedure / Unknown 10/16/2024 10:17 AM EDT 10/16/2024 5:36 PM EDT Comment:UACC Narrative [facility] - 10/18/2024 10:44 AM EDT Urine Culture Report Result Urine Culture < 10,000 cfu/ml Specimen Source: Urine clean catch us Alem Corley [employer] REPA[employer] LAB MICROBIOLOGY - GENERAL ORDE RABLES Final Result [facility] [address] [place] [phone] from Last 3 Months Insurance [employer] (O D-SNP) YUNIOR THAKKAR [id number] Care Teams Camera Engineer Relationship Specialty Start Date End Date Hallie Mcclendon MD [address] [place] [address] [phone] PCP - General Family Medicine 03/13/18 [facility] 07/05/19
--- OUTSIDE RECORDS SUMMARY | 2024-12-03 13:44 | XMS_ITS | Encounter Summary ---
Author Organization [employer] Address [address] [facility] 7[address] [place] [address] Care Team Providers Care Animal Caretaker Name Role Phone Hallie Mcclendon MD Primary Care Provider [phone] Reason for Referral * Consultation (Routine) - Canceled Specialty Diagnoses / Procedures Referred By Mya t Referred To Contact Pharmacy Diagnoses Hospital discharge follow-up Hallie Mcclendon MD [address] [place] [address] Phone: tel: fax: Referral ID Status Reason Start Date Expiration Date V isits Requested Visits Authorized [id number] Canceled Continuity of Care 07/10/2024 07/10/2025 6 6 Reason for Visit * Reason Onset Date Comments Call Back Request 07/10/2024 Encounter Details Date Type Department Care Team ([facility] st Contact Info) Description 07/10/2024 Telephone [facility] [address] [place], [place] [phone] Hallie Mcclendon MD [address] [place], [place] [phone] Call Back Request Social History Tobacco Use Types Packs/Day Years [...] encounter Miscellaneous Notes * Telephone Encounter - Opal Williamson RN - 07/10/2024 3:07 PM EDT TC placed to Jenae with [facility] who called in with concerns with some discrepancies with pt discharge medication list. Pt has had two admissions in the past month with the last one being at [facility], discharged on 07/09/2024. Pt was seen for CKD and chronic heart failure. Jenae has discontinued the pt vitamin C, B12, Oxybutin , and quetiapine. RN called TORI Clement to make sure the pt is set up for medication reconciliation before HDF scheduled on 07/22/2024. A referral has been placed by DEJA Blanchard. Jenae advised that this information will be forwarded to PCP for review. * Telephone Encounter - Galileo Castro - 07/10/2024 11:19 AM EDT TC from Jenae with [facility] requesting a call back regarding pt medication. Contact Jenae at [phone] documented in this encounter Plan of Treatment Upcoming Encounters Date Type Department Care Team (Late st Contact Info) Description 01/20/2025 10:00 AM EST Office Visit [facility] [address] [place] [phone] Hallie Mcclendon MD [address] [place] [phone] Scheduled Referrals Name Type Priority Associated Diagnoses Orde r Schedule Referral to Pharmacy MTM Outpatient Referral Routine Hospital discharge follow-up Ordered: 07/10/2024 documented as of this encounter Visit Diagnoses Diagnosis Hospital discharge follow-up Other follow-up examination documented in this encounter Additional Health Concerns Assessment Noted Time PHQ-9 Depression Total Score: 0 11/20/19 24 9:22 AM EDT documented as of this encounter Care Teams Animal Caretaker Relationship Specialty Start Date End Date Hallie Mcclendon MD [address] [place] [phone] PCP - General Family Medicine 03/13/18 [facility] 07/05/19 documented as of this encounter
--- OUTSIDE RECORDS SUMMARY | 2024-12-03 13:45 | XMS_ITS | Encounter Summary ---
Author Organization [employer] Address [address] [facility] 7t [place] [address] Care Team Providers Care Professor Of Mathematics Name Role Phone Hallie Mcclendon MD Primary Care Provider [phone] Encounter Details Date Type Department Care Team (Late st Contact Info) Description 06/20/2022 Telephone [facility] [address] [place] [phone] Hallie Mcclendon MD [address] [place] [address] [phone] Social History Tobacco Use Types Packs/Day Years [...] Description 01/20/2025 10:00 AM EST Office Visit [facility] [address] [place] [phone] Hallie Mcclendon MD [address] [place] [address] [phone] documented as of this encounter Visit Diagnoses Not on filedocumented in this encounter Care Teams Professor Of Mathematics Relationship Specialty Start Date End Date Hallie Mcclendon MD [address] [place] [phone] PCP - General Family Medicine 03/13/18 [facility] 07/05/19 documented as of this encounter
--- OUTSIDE RECORDS SUMMARY | 2024-12-03 13:45 | XMS_ITS | Encounter Summary ---
Author Organization [employer] Address [address] [facility] 7t [place] [address] Care Team Providers Care News Producer Name Role Phone Hallie Mcclendon MD Primary Care Provider [phone] Encounter Details Date Type Department Care Team (Late st Contact Info) Description 12/09/2022 Orders Only [facility] [address] [place] [address] Hallie Mcclendon MD [address] [place] [phone] Hematemesis, unspecified whether nausea present (Primary Dx); [...] Description 01/20/2025 10:00 AM EST Office Visit [facility] [address] [place] [address] Hallie Mcclendon MD [address] [place] [phone] documented as of this encounter Procedures Procedure [...] B12 >2,000(H ) 200 - 900 pg/mL [facility] Comment:NORMAL 200-900 PG/M L INDETERMINATE 160-199 PG/ML DEFICIENT < 160 PG/ML Folate 10.6 > or = 4.0 ng/mL [facility] Comment:Reference Values:> o r = 4.0 ng/mL< 4.0 ng/mL suggests folate deficiency Methotrexate, aminopterin and folinic acid(leucovorin) are chemotherapeutic agents whose molecularstructures are similar to folate; therefore, the Architectfolate assay cannot be used for patients using these drugs. 12/13/2022 10:0 7 AM EDT 12/13/2022 10:07 AM EDT Hallie Mcclendon MD LAB BLOOD ORDERABLES Final Resul t Performing Organization Address City/[facility]/ZIP Co de Phone Number [facility] [address] [place] [phone] * (ABNORMAL) Iron And Total Iron Binding Capacity (12/13/2022 10:07 AM EDT) Pathologist [facility] Iron 131 45 - 160 mcg/dL [facility] Total Iron Binding Capacity 251 228 - 428 mcg/dL [facility] Percent Iron Saturation 52(H) 15 - 50 % [facility] Unsaturated Iron Binding 120 ug/dL [facility] Blood Venous blood specimen / Unknown 12/13/2022 10:07 AM EDT 12/13/2022 10:07 AM EDT Hallie Mcclendon MD LAB BLOOD ORDERABLES Final Resul t Performing Organization Address [facility]/ZIP Co de Phone Number [facility] [address] [place] [phone] * (ABNORMAL) Ferritin (12/13/2022 10:07 AM EDT) Ferritin 506(H) 20 - 250 ng/mL [facility] Blood Venous blood specimen / Unknown 12/13/2022 10:07 AM EDT 12/13/2022 10:07 AM EDT us Hallie Mcclendon MD LAB BLOOD ORDERABLES Final Resul t Performing Organization Address [facility]/ZIP Co de Phone Number [facility] [address] [place] [phone] * T4, Free (12/13/2022 10:07 AM EDT) Free T4 (Free Thyroxine) 0.90 0.71 - 1.85 ng/dL [facility] Blood Venous blood specimen / Unknown 12/13/2022 10:07 AM EDT 12/13/2022 10:07 AM EDT us Hallie Mcclendon MD LAB BLOOD ORDERABLES Final Resul t Performing Organization Address [facility] Co de Phone Number [facility] [address] [place] [phone] * TSH (12/13/2022 10:07 AM EDT) Thyroid Stimulating Hormone 2.54 0.32 - 4.0 uIU/mL [facility] Comment:TSH 3rd Generation ( [facility]) Blood Venous blood specimen / Unknown 12/13/2022 10:07 AM EDT 12/13/2022 10:07 AM EDT us Hallie Mcclendon MD LAB BLOOD ORDERABLES Final Resul t Performing Organization Address [facility] Co de Phone Number [facility] [address] [place] [phone] * Hemoglobin A1c (12/13/2022 10:07 AM EDT) Hemoglobin A1c 5.7 <6.0 % [facility] Comment:Hemoglobin A1C Refer ence Range Adults: 4.8 - 6.0 % Non diabetic: < 6.0 % Goal: < 7.0 %Additional Action Suggested: > 8.0 %Note: Hemoglobin A1c results are invalid for patients with abnormal amounts of HbF. Blood transfusions may impact the HbA1c concentration in the patient sample. Estimated Average Glucose 117 mg/dL [facility] Comment:eAG = Estimated ave rage glucose which is %A1C expressed asaverage glucose, using the formula of the M5M-ClreknwBlfzozl Glucose study (ADAG), Diabetes Care, Vol.31,#8,Oct. 2007 Blood Venous blood specimen / Unknown 12/13/2022 10:07 AM EDT 12/13/2022 10:07 AM EDT us Hallie Mcclendon MD LAB BLOOD ORDERABLES Final Resul t [facility] [address] [place] [phone] * (ABNORMAL) Comprehensive Metabolic Panel (12/13/2022 10:07 AM EDT) Sodium 139 135 - 145 mmol/L [facility] Potassium 3.8 3.3 - 5.1 mmol/L [facility] Chloride 106 96 - 108 mmol/L [facility] Carbon Dioxide 24 22 - 29 mmol/L [facility] Anion Gap 13 12 - 20 [facility] Urea Nitrogen (BUN) 21(H) 9 - 16 mg/dL [facility] Creatinine, Serum 1.06 0.5 - 1.4 mg/dL [facility] Estimated Glomerular Filt Rate >60 [facility] Comment:NOTE: For -Am erican individuals, multiply the result by 1.210.Chronic Kidney Disease: Estimated GFR < 60 mL/min/1.56j5Qnczwv Kidney Disease: Estimated GFR < 15 mL/min/1.73m2 Glucose 104 60 - 115 mg/dL [facility] Calcium 10.3(H) 8.4 - 10.2 mg/dL [facility] Bilirubin, Total 0.5 0.0 - 1.0 mg/dL [facility] Aspartate Amino Transferase 25 5 - 37 U/L [facility] Alanine Aminotransferase 24 0 - 40 U/L [facility] Total Protein 7.6 6.5 - 8.0 g/dL [facility] Albumin Level 4.3 3.5 - 5.0 g/dL [facility] Alkaline Phosphatase 88 39 - 117 U/L [facility] Blood Venous blood specimen / Unknown 12/13/2022 10:07 AM EDT 12/13/2022 10:07 AM EDT us Hallie Mcclendon MD LAB BLOOD ORDERABLES Final Resul t [facility] [address] [place] [phone] * (ABNORMAL) CBC auto differential (12/13/2022 10:07 AM EDT) White Blood Count 8.1 4.8 - 10.8 X10*3/uL [facility] Red Blood Count 5.15 4.60 - 5.80 X10*6/uL [facility] Hemoglobin 15.5 14.0 - 18.0 g/dl [facility] Hematocrit 45.7 42.0 - 52.0 % [facility] Mean Corpuscular Volume 88.7 80.0 - 98.0 fL [facility] Mean Corpuscular Hemoglobin 30.1 27.0 - 33.0 pg [facility] Mean Corpuscular HGB Conc 33.9 31.0 - 36.0 g/dl [facility] Red Cell Distribution Width 12.7 11.0 - 16.0 % [facility] Platelet Count 182 160 - 400 X10*3/uL [facility] Mean Platelet Volume 10.5 9.4 - 12.4 fL [facility] Neutrophils Percent Auto 55.1 45 - 73 % [facility] Imm Gran Pct Auto 0.2 0.0 - 0.4 % [facility] Lymphocytes Percent Auto 30.2 20 - 40 % [facility] Monocytes Percent Auto 6.5 2 - 11 % [facility] Eosinophils Percent Auto 7.5(H) 0 - 4 % [facility] Basophils Percent Auto 0.5 0 - 2 % [facility] NRBC Pct Auto 0.0 0.0 - 0.2 /100WBC [facility] Neutrophils Absolute Auto 4.5 2.0 - 8.3 x10*3/uL [facility] Imm Gran Abs Auto 0.02 0.00 - 0.03 X10*3/uL [facility] Lymphocytes Absolute Auto 2.5 1.2 - 4.9 X10*3/uL [facility] Monocytes Absolute Auto 0.5 0.1 - 1.2 X10*3/uL [facility] Eosinophils Absolute Auto 0.6(H) 0.0 - 0.4 X10*3/uL [facility] Basophils Absolute Auto 0.0 0.0 - 0.2 X10*3/uL [facility] NRBC Abs Auto 0.000 0.0 - 0.012 X10*3/uL [facility] Blood Venous blood specimen / Unknown 12/13/2022 10:07 AM EDT 12/13/2022 10:07 AM EDT us Hallie Mcclendon MD LAB BLOOD ORDERABLES Final Resul t [facility] [address] [place] [phone] * B Type Natriuretic Peptide (BNP) (12/13/2022 10:07 AM EDT) B Type Natriuretic Peptide <10 <100 pg/mL [facility] Comment:For those patients w ho are being treated with Natrecor(nesiritide, recombinant BNP), BNP testing should beperformed at least two hours post treatment in order toensure that only endogenous levels of BNP are detected. Blood Venous blood specimen / Unknown 12/13/2022 10:07 AM EDT 12/13/2022 10:07 AM EDT Hallie Mcclendon MD LAB BLOOD ORDERABLES Final Resul t [facility] [address] [place] [phone] documented in this encounter Visit Diagnoses Diagnosis Hematemesis, unspecified whether nausea present- Primary Heart failure with reduced ejection fraction (CMS/HCC) Dyslipidemia Other and unspecified hyperlipidemia Elevated TSH Other abnormal blood chemistry Class 1 obesity due to excess calories with serious comorbidity and body mass index (BMI) of 31.0 to 31.9 in adult documented in this encounter Care Teams News Producer Relationship Specialty Start Date End Date Hallie Mcclendon MD [address] [place] [phone] PCP - General Family Medicine 03/13/18 [facility] 07/05/19 documented as of this encounter
--- OUTSIDE RECORDS SUMMARY | 2024-12-03 13:45 | XMS_ITS | Encounter Summary ---
Author Organization [employer] Address [address] [facility] 7t [place] [address] Care Team Providers Care Reconciliation Coordinator Name Role Phone Hallie Mcclendon MD Primary Care Provider [phone] Encounter Details Date Type Department Care Team (Late st Contact Info) Description 04/01/2022 Orders Only [facility] [address] [place] [phone] Yuliana Barrios, RN Social History Tobacco Use [...] Description 01/20/2025 10:00 AM EST Office Visit [facility] [address] [place] [phone] Hallie Mcclendon MD [address] [place] [phone] documented as of this encounter Visit Diagnoses Not on filedocumented in this encounter Care Teams Reconciliation Coordinator Relationship Specialty Start Date End Date Hallie Mcclendon MD [address] [place] [phone] PCP - General Family Medicine 03/13/18 [facility] 07/05/19 documented as of this encounter
[2024-12-03 13:48] LABS: Reflex LDLD? No
[2024-12-03 13:52] LABS: Magnesium 1.4 mg/dL (1.6-2.6)
== END 2024-12-03 11:03 | disposition home or self-care (01) ==
LOC: HO.LAB 11:02
PROVIDERS: PCP Family Medicine; Visit Provider Urology
DX: Z12.5 Encounter for screening for malignant neoplasm of prostate (principal); I10 Essential (primary) hypertension; E78.5 Hyperlipidemia, unspecified; E83.42 Hypomagnesemia; R97.20 Elevated prostate specific antigen [PSA]; Z51.81 Encounter for therapeutic drug level monitoring; Z79.899 Other long term (current) drug therapy
CPT/HCPCS: 36415; 80053; 80061; 83735; 84153; 84443

== ENCOUNTER 2024-12-05 09:39 | Outpatient (REF) | payer OTHER, SELFPAY ==
[2024-12-05 11:08] LABS: Anion Gap 14 (12-20); Blood Urea Nitrogen 14 mg/dL (9-16); Calcium 8.8 mg/dL (8.4-10.2); Carbon Dioxide 24 mmol/L (22-29); Chloride 109 mmol/L (96-108); Estimated Glomerular Filt Rate > 60; Magnesium 1.7 mg/dL (1.6-2.6); Potassium 3.5 mmol/L (3.3-5.1); Sodium 143 mmol/L (135-145)
== END 2024-12-05 09:40 | disposition home or self-care (01) ==
LOC: HO.LAB 09:39
PROVIDERS: PCP Family Medicine; Visit Provider Family Medicine
DX: E83.42 Hypomagnesemia (principal)
CPT/HCPCS: 36415; 80048; 83735

== ENCOUNTER 2024-12-13 10:29 | Outpatient (AMB) | payer OTHER, SELFPAY ==
--- NOTE | 2024-12-13 10:29 | MHC.OFFVIS ---
Intake Visit Reasons: 6m/PSA/PVR Intake Note: patient presents today for: 6mo/PSA/PVR urology medications: vitb12, finasteride, tamsulosin blood thinners: none labs done 12/03/24: PSA 64.19 today's PSA: 48mls Reel Tender Required: Yes Accompanied by: Health Care Proxy Allergies No Known Allergies Allergy (Verified 12/13/24 10:31) HPI Comments Details: Joseph is a pleasant male. He is a patient of Dr. Simpson. He is seen for the following urologic conditions - BPH - elevated PSA Bulgarian translation provided in office by qualified medical office receptionist PSA now up to 60 Obtain PET-CT PSMA scan Effective urination - good bladder emptying Continue finasteride Lower urinary tract symptoms Longstanding Primary complaint is nocturia with high elevated residual Responded well to tamsulosin and finasteride PSA - 05/01 6.0, 05/03 8.6, 05/04 11, 04/05 21, 11/03 16, 06/04 31 Prior biopsy performed for PSA 8 which was negative 2016 chronic inflammation - 09/02 MRI targeted biopsy - MAHESH no cancer Imaging 07/02 MRI cm left lateral posterior PI-RADS 4 lesion 6 month follow-up PSA PFS Medical History (Updated 01/23/24 @ 07:43 by Krystyna Christianson RN) Schizophrenia Hiatal hernia Opioid dependence, uncomplicated Tobacco use disorder Lung nodules COPD (chronic obstructive pulmonary disease) Undifferentiated schizophrenia Transient alteration of awareness ST segment depression Dizziness Memory impairment Chronic anemia Substance abuse Gallstones Smoker Depression Gastritis Esophagitis Asthma GERD (gastroesophageal reflux disease) HTN (hypertension) Surgical History History of esophagogastroduodenoscopy (EGD) Hx of colonoscopy History of prostate biopsy Family History Father No problems noted. Mother No problems noted. 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 Housing: House Are you a primary anesthesiologist and critical care to a significant other at home: No Do you presently have visiting nurse or other home services: No Alcohol intake: never Patient Tobacco Use Status: Never used Tobacco Tobacco use type: Cigarette Cigarettes Per Day: 4 Second Hand Smoke Exposure: No Substance Use Type: Heroin service: No Current occupational status: unemployed and disabled Review of Systems Const Denies chills and Denies fever(s) Card Reports no additional complaints and Denies syncope Resp Denies cough GI Denies abdominal pain and Denies heartburn Reports as per HPI and Denies change in libido Neuro Denies syncope Psych Denies change in libido Endo Denies change in libido Physical Exam Const General: cooperative, healthy appearing, comfortable and no acute distress Orientation/consciousness: patient oriented x3 HEENT Face and sinus: Yes normal facial exam Mouth: moist mucous membranes Neck Neck: Yes normal visual inspection, Yes full ROM and Yes trachea midline Chest Chest palpation & inspection: normal inspection of the chest Resp Effort & Inspection: normal respiratory effort, able to speak in complete sentences and no respiratory distress GI Inspection: Yes normal to inspection Back/Spine/Pelvis Cervical Spine: normal cervical lordosis Thoracic/Lumbar Spine: thoracic and lumbar spine normal to inspection Skin General skin exam: no rashes or lesions noted Neuro General: patient oriented x3, gait normal, tone normal and moves all extremities Extrem General: Yes normal to inspection and Yes capillary refill normal Office Procedures Post Void Residual Post Residual Void Post Void Residual (PVR): 48 23259-Odif Void Residual by ultrasound Results AMB Urinalysis, Automated UA Leukoctes 0 Moustapha/uL Last Edit by FAHAD Pradhan on 12/13/24 10:45 UA Nitrite Last Edit by FAHAD Pradhan on 12/13/24 10:45 UA Urobilinogen 0.2 mg/dL Last Edit by FAHAD Pradhan on 12/13/24 10:45 UA Protein 0 mg/dL Last Edit by FAHAD Pradhan on 12/13/24 10:45 UA pH 6.0 Last Edit by FAHAD Pradhan on 12/13/24 10:45 UA Blood 0 Joel/uL Last Edit by FAHAD Pradhan on 12/13/24 10:45 UA Specific Cisco 1.010 Last Edit by FAHAD Pradhan on 12/13/24 10:45 UA Ketone Last Edit by FAHAD Pradhan on 12/13/24 10:45 UA Bilirubin 0 mg/dL Last Edit by FAHAD Pradhan on 12/13/24 10:45 UA Glucose 0 mg/dL Last Edit by FAHAD Pradhan on 12/13/24 10:45 Results Reviewed Results Reviewed: Laboratory Last Values Urine pH (Auto) 6.0 12/13/24 10:44 Specific Cisco (Auto) 1.010 12/13/24 10:44 Urine Protein (Auto) 0 mg/dL 12/13/24 10:44 Glucose (UA)(Auto) 0 mg/dL 12/13/24 10:44 Urine Blood (Auto) 0 Joel/uL 12/13/24 10:44 Urine Bilirubin (Auto) 0 mg/dL 12/13/24 10:44 Urine Urobilinogen (Auto) 0.2 mg/dL 12/13/24 10:44 Leukocyte Esterase (Auto) 0 Moustapha/uL 12/13/24 10:44 Assessment & Plan Assessment & Plan (1) Elevated PSA: Comment: Prior biopsy for PSA 8 NAD Code(s): R97.20 - Elevated prostate specific antigen [PSA] Category: Medical Plan PSA over 60 Consistent with high-grade prostate cancer prior biopsy normal Prior MRI not informative Orders: Orders AMB Urinalysis Automated Today Z13.9 - Encounter for screening, unspecified PET CT fusion skull to thigh Today C61 - Malignant neoplasm of prostate, R97.20 - Elevated prostate specific antigen [PSA] AMB Post Void Residual by ultrasound Today N40.1 - Benign prostatic hyperplasia with lower urinary tract symptoms, R39.15 - Urgency of urination Patient Instructions: This note is constructed using voice recognition software. While every effort has been made to ensure accuracy senior compliance officer errors may have been included. Imaging studies, laboratory and physical exam results were discussed and reviewed in detail. No major barriers to patient understanding were identified. An opportunity to ask questions regarding the treatment plan was provided. All questions were answered. The patient expressed understanding and agreement with the above treatment plan. The patient is aware they should contact our office by phone for worsening of their current condition or the appearance of new urologic symptoms. Compliance is encouraged with any medications and followup testing that is ordered. It is a privilege to participate in the urologic care of your patient. If you have any questions or concerns regarding treatment for the above conditions, or other urologic issues, please do not hesitate to contact me. The office telephone contact is [phone]. Sincerely, Dr Stevie Molina MD, [facility] - Urology Compassionate Specialist Care for the Genitourinary System Coding Level of Care Code Est Pt Level 4 (62876) Diagnoses Elevated PSA R97.20 CPT Codes Post Residual Void - PVR CPT Code: 25981-Lhrf Void Residual by ultrasound ([id number])
--- OUTSIDE RECORDS SUMMARY | 2024-12-13 11:22 | XMS_ITS | Encounter Summary ---
Author Organization [employer] Address [address] [facility] 7t [place] [address] Care Team Providers Care Children'S Service Worker Name Role Phone Hallie Mcclendon MD Primary Care Provider [phone] Reason for Visit * Reason Onset Date Comments Med Refill 08/12/2024 Encounter Details Date Type Department Care Team ([facility] st Contact Info) Description 08/12/2024 Telephone [facility]INE [address] [place], [place] [phone] Hallie Mcclendon MD 230 [place], [place] [phone] Med Refill Social History Tobacco Use Types [...] 10:26 AM EDT Medication was sent to [facility] on 07/30/24 #90 with 3 refills. * Telephone Encounter - Wally Garcia - 08/12/2024 10:14 AM EDT TC from pt requesting medication refill. Medications needing refill: omeprazole (PriLOSEC) [address] capsule Multiple Vitamin (Multivitamin) tablet To be sent to: [facility] - [place], [place] - [address] [place] [address] documented in this encounter Plan of Treatment Upcoming Encounters Date Type Department Care Team ([facility] st Contact Info) Description 01/20/2025 10:00 AM EST Office Visit [facility] [address] [place] [address] Hallie Mcclendon MD 230 [facility] [place] [address] documented as of this encounter Visit Diagnoses Not on filedocumented in this encounter Additional Health Concerns Assessment Noted Time PHQ-9 Depression Total Score: 0 11/20/19 24 9:22 AM EDT documented as of this encounter Care Teams Children'S Service Worker Relationship Specialty Start Date End Date Hallie Mcclendon MD [address] [place] [address] PCP - General Family Medicine 03/13/18 [facility] 07/05/19 documented as of this encounter
--- OUTSIDE RECORDS SUMMARY | 2024-12-13 11:23 | XMS_ITS | Encounter Summary ---
Author Organization [employer] Address [address] [facility] 7t [place] [address] Care Team Providers Care Fabric Stretcher Name Role Phone Hallie Mcclendon MD Primary Care Provider [phone] Reason for Referral * Consultation (Routine) - Canceled Specialty Diagnoses / Procedures Referred By Mya t Referred To Contact Pharmacy Diagnoses Hospital discharge follow-up Hallie Mcclendon MD [address] [place] [address] Phone: tel: fax: Referral ID Status Reason Start Date Expiration Date V isits Requested Visits Authorized [id number] Canceled Continuity of Care 07/10/2024 07/10/2025 6 6 Reason for Visit * Reason Onset Date Comments Call Back Request 07/10/2024 Encounter Details Date Type Department Care Team ([facility] st Contact Info) Description 07/10/2024 Telephone [facility]INE [address] [place], [place] [phone] Hallie Mcclendon MD 230 [place], [place] [phone] Call Back Request Social History Tobacco Use [...] month with the last one being at [facility], discharged on 07/09/2024. Pt was seen [...] 11:19 AM EDT TC from Jenae with [facility] requesting a call back regarding pt medication. Contact Jenae at [phone] documented in this encounter Plan of Treatment Upcoming Encounters Date Type Department Care Team (Late st Contact Info) Description 01/20/2025 10:00 AM EST Office Visit [facility]INE [address] [place] [address] Hallie Mcclendon MD [address] [place] [address] Scheduled Referrals Name Type Priority Associated Diagnoses Orde r Schedule Referral to Pharmacy MTM Outpatient Referral Routine Hospital discharge follow-up Ordered: 07/10/2024 documented as of this encounter Visit Diagnoses Diagnosis Hospital discharge follow-up Other follow-up examination documented in this encounter Additional Health Concerns Assessment Noted Time PHQ-9 Depression Total Score: 0 11/20/19 24 9:22 AM EDT documented as of this encounter Care Teams Fabric Stretcher Relationship Specialty Start Date End Date Hallie Mcclendon MD [address] [place] [address] PCP - General Family Medicine 03/13/18 [facility] 07/05/19 documented as of this encounter
--- OUTSIDE RECORDS SUMMARY | 2024-12-13 11:23 | XMS_ITS | Encounter Summary ---
Author Organization [employer] Address [address] [facility] 7t [place] [address] Care Team Providers Care System Programmer Name Role Phone Hallie Mcclendon MD Primary Care Provider [phone] Encounter Details Date Type Department Care Team ([facility] st Contact Info) Description 10/16/2024 Results Follow-Up [facility] MED[facility]INE 230 [place] [address] Alem Corley NP 230 [place] [address] POCT urinalysis dipstick manually resulted, Hemoglobin A1c, [...] Visit [facility] MED[facility]INE [address] [place] [address] Hallie Mcclendon MD 230 [place] [address] documented as of this encounter Visit Diagnoses Not on filedocumented in this encounter Additional Health Concerns Assessment Noted Time PHQ-9 Depression Total Score: 0 11/20/19 24 9:22 AM EDT documented as of this encounter Care Teams System Programmer Relationship Specialty Start Date End Date Hallie Mcclendon MD [address] [place] [address] PCP - General Family Medicine 03/13/18 [facility] 07/05/19 documented as of this encounter
--- OUTSIDE RECORDS SUMMARY | 2024-12-13 11:23 | XMS_ITS | Encounter Summary ---
Author Organization [employer] Address [address] [facility] 7t [place] [address] Care Team Providers Care Coremaking Machine Operator Name Role Phone Hallie Mcclendon MD Primary Care Provider [phone] Reason for Visit * Reason Comments Med Refill Encounter Details Date Type Department Care Team ([facility] st Contact Info) Description 07/13/2023 Refill [facility] MED[facility]INE 230 [place], [place] [phone] Hallie Mcclendon MD 230 [place], [place] [phone] Constipation, unspecified constipation type Social History Tobacco [...] Description 01/20/2025 10:00 AM EST Office Visit [facility] MED[facility]INE [address] [place] [address] Hallie Mcclendon MD [address] [place] [phone] documented as of this encounter Visit Diagnoses Diagnosis Constipation, unspecified constipation type documented in this encounter Care Teams Coremaking Machine Operator Relationship Specialty Start Date End Date Hallie Mcclendon MD [address] [place] [address] PCP - General Family Medicine 03/13/18 [facility] 07/05/19 documented as of this encounter
--- OUTSIDE RECORDS SUMMARY | 2024-12-13 11:23 | XMS_ITS | Encounter Summary ---
Author Organization [employer] Address [address] [facility] 7t [place] [address] Care Team Providers Care Home Health Nurse Licensed Practical Name Role Phone Hallie Mcclendon MD Primary Care Provider [phone] Reason for Visit * Reason Onset Date Comments FYI 09/26/2024 Encounter Details Date Type Department Care Team ([facility] st Contact Info) Description 09/26/2024 Telephone [facility] MEDICINE [address] [place], [place] [phone] Hallie Mcclendon MD [address] [place], [place] [phone] FYI Social History Tobacco Use Types Packs/Day [...] 01/20/2025 10:00 AM EST Office Visit [facility] MEDICINE [address] [place] [address] Hallie Mcclendon MD [address] [place] [address] documented as of this encounter Visit Diagnoses Not on filedocumented in this encounter Additional Health Concerns Assessment Noted Time PHQ-9 Depression Total Score: 0 11/20/19 24 9:22 AM EDT documented as of this encounter Care Teams Home Health Nurse Licensed Practical Relationship Specialty Start Date End Date Hallie Mcclendon MD [address] [place] [address] PCP - General Family Medicine 03/13/18 [facility] 4/24/20 documented as of this encounter
--- OUTSIDE RECORDS SUMMARY | 2024-12-13 11:23 | XMS_ITS | Encounter Summary ---
Author Organization [employer] Address [address] [facility] 7t [place] [address] Care Team Providers Care Family Program Specialist Name Role Phone Hallie Mcclendon MD Primary Care Provider [phone] Reason for Referral * Consultation (Routine) - Authorized Specialty Diagnoses / Procedures Referred By Contangel t Referred To Contact Pharmacy Diagnoses Hypertension Kiersten Burkett MD [address] [place] [address] Phone: tel: fax: Referral ID Status Reason Start Date Expiration Date Visits Requested Visits Authorized [id number] Authorized Continuity of Care 07/18/2024 07/18/2025 6 6 Encounter Details Date Type Department Care Team (Late st Contact Info) Description 07/17/2024 Orders Only [facility] MED[facility]INE [address] [place], [place] [phone] Kiersten Burkett MD [address] [place], [place] [phone] Hypertension (Primary Dx) Social History Tobacco Use [...] Office Visit [facility] MEDICINE [address] [place] [address] Hallie Mcclendon MD [address] [place] [address] Scheduled Referrals Name Type Priority Associated Diagnoses Orde r Schedule Referral to Pharmacy MT Outpatient Referral Routine Hypertension Ordered: 07/18/2024 documented as of this encounter Visit Diagnoses Diagnosis Hypertension- Primary Unspecified essential hypertension documented in this encounter Additional Health Concerns Assessment Noted Time PHQ-9 Depression Total Score: 0 11/20/19 24 9:22 AM EDT documented as of this encounter Care Teams Family Program Specialist Relationship Specialty Start Date End Date Hallie Mcclendon MD [address] [place] [address] PCP - General Family Medicine 03/13/18 [facility] 07/05/19 documented as of this encounter
--- OUTSIDE RECORDS SUMMARY | 2024-12-13 11:23 | XMS_ITS | Encounter Summary ---
Author Organization [employer] Address [address] [facility] 7t [place] [address] Care Team Providers Care Maintainer Central Office Name Role Phone Hallie Mcclendon MD Primary Care Provider [phone] Reason for Visit * Reason Comments Med Refill Encounter Details Date Type Department Care Team ([facility] st Contact Info) Description 07/13/2023 Refill [facility] MED[facility]INE 230 [place], [place] [phone] Hallie Mcclendon MD 230 [place], [place] [phone] Constipation, unspecified constipation type Social History Tobacco [...] Description 01/20/2025 10:00 AM EST Office Visit [facility] MEDICINE [address] [place] [address] Hallie Mcclendon MD [address] [place] [address] documented as of this encounter Visit Diagnoses Diagnosis Constipation, unspecified constipation type documented in this encounter Care Teams Maintainer Central Office Relationship Specialty Start Date End Date Hallie Mcclendon MD [address] [place] [address] PCP - General Family Medicine 03/13/18 [facility] 07/05/19 documented as of this encounter
--- OUTSIDE RECORDS SUMMARY | 2024-12-13 11:23 | XMS_ITS | Encounter Summary ---
Author Organization [employer] Address [address] [facility] 7t [place] [address] Care Team Providers Care Commercial Analyst Name Role Phone Hallie Mcclendon MD Primary Care Provider [phone] Encounter Details Date Type Department Care Team ([facility] st Contact Info) Description 04/05/2024 Orders Only [facility] MEDICINE [address] [place] [address] Hallie Mcclendon MD 230 [place] [address] Social History Tobacco Use Types Packs/Day Years [...] 10:00 AM EST Office Visit [facility] MEDICINE [address] [place] [address] Hallie Mcclendon MD 230 [place] [address] documented as of this encounter Visit Diagnoses Not on filedocumented in this encounter Additional Health Concerns Assessment Noted Time PHQ-9 Depression Total Score: 0 11/20/19 24 9:22 AM EDT documented as of this encounter Care Teams Commercial Analyst Relationship Specialty Start Date End Date Hallie Mcclendon MD [address] [place] [address] PCP - General Family Medicine 03/13/18 [facility] 07/05/19 documented as of this encounter
--- OUTSIDE RECORDS SUMMARY | 2024-12-13 11:23 | XMS_ITS | Encounter Summary ---
Author Organization [employer] Address [address] [facility] 7t [place] [address] Care Team Providers Care Marketing Communications Coordinator Name Role Phone Hallie Mcclendon MD Primary Care Provider [phone] Reason for Visit * Reason Comments Med Refill Encounter Details Date Type Department Care Team (Late st Contact Info) Description 06/14/2022 Refill [facility] [address] [place], [place] [phone] Hallie Mcclendon MD 230 [place], [place] [phone] Anemia in other chronic diseases classified elsewhere [...] Description 01/20/2025 10:00 AM EST Office Visit [facility] 230 [place], [place] [phone] Hallie Mcclendon MD [address] [place], [place] [phone] documented as of this encounter Visit Diagnoses Diagnosis Anemia in other chronic diseases classified elsewhere documented in this encounter Care Teams Marketing Communications Coordinator Relationship Specialty Start Date End Date Hallie Mcclendon MD [address] [place] [address] PCP - General Family Medicine 03/13/18 [facility] 07/05/19 documented as of this encounter
--- OUTSIDE RECORDS SUMMARY | 2024-12-13 11:23 | XMS_ITS | Encounter Summary ---
Author Organization [email or web address] Address [address] [facility] 7t [place] [address] Care Team Providers Care Subgrade Roller Operator Name Role Phone Hallie Mcclendon MD Primary Care Provider [phone] Reason for Visit * Reason Comments Med Refill Encounter Details Date Type Department Care Team ([facility] st Contact Info) Description 05/14/2024 Refill [facility] MEDICINE 230 [place], [place] [phone] Hallie Mcclendon MD [address] [place], [place] [phone] Social History Tobacco Use Types Packs/Day Years [...] Description 01/20/2025 10:00 AM EST Office Visit [facility] MEDICINE 230 [place] [address] Hallie Mcclendon MD [address] [place] [address] documented as of this encounter Visit Diagnoses Not on filedocumented in this encounter Additional Health Concerns Assessment Noted Time PHQ-9 Depression Total Score: 0 11/20/19 24 9:22 AM EDT documented as of this encounter Care Teams Subgrade Roller Operator Relationship Specialty Start Date End Date Hallie Mcclendon MD [address] [place] [address] PCP - General Family Medicine 03/13/18 [facility] 07/05/19 documented as of this encounter
--- OUTSIDE RECORDS SUMMARY | 2024-12-13 11:23 | XMS_ITS | Encounter Summary ---
Author Organization [employer] Address [address] [facility] 7t [place] [address] Care Team Providers Care Career Placement Specialist Name Role Phone Hallie Mcclendon MD Primary Care Provider [phone] Encounter Details Date Type Department Care Team (Late st Contact Info) Description 04/01/2022 Orders Only [facility] MEDICINE [address] [place] [address] Yuliana Barrios, RN Social History Tobacco Use [...] Description 01/20/2025 10:00 AM EST Office Visit [facility] MEDICINE [address] [place] [phone] Hallie Mcclendon MD [address] [place] [address] documented as of this encounter Visit Diagnoses Not on filedocumented in this encounter Care Teams Career Placement Specialist Relationship Specialty Start Date End Date Hallie Mcclendon MD [address] [place] [address] PCP - General Family Medicine 03/13/18 [facility] 07/05/19 documented as of this encounter
--- OUTSIDE RECORDS SUMMARY | 2024-12-13 11:23 | XMS_ITS | Clinical Summary ---
Author Organization [employer] Address [address] [place] [address] 7[address] [place] [address] Care Team Providers Care Chemistry Instructor Name Role Phone Hallie Chavira MD Primary Care Provider [phone] Allergies No known active allergies Medications traZODone [...] THE MORNING 30 tablet 11/15/19 25 Active magnesium oxide (Mag-Ox) 400 MG tabletIndicati ons:Hypomagnes emia Take 1 tablet (400 mg) by mouth every other day. 15 tablet 12/04/19 25 025 Active Ascorbic Acid (vitamin C) 250 MG tabletIndicati ons:Anemia, unspecified type TAKE 1 TABLET BY MOUTH EVERY MORNING 30 tablet 09/20/19 25 025 Discontinued Ferrous Sulfate (iron) 325 (65 Fe) MG tabletIndicati ons:Anemia, unspecified type TAKE 1 TABLET BY MOUTH EVERY MORNING 30 tablet 09/20/19 25 025 Discontinued Active Problems Problem Noted Date Diagnosed Date Aspiration pneumonia ([facility]) 08/01/2024 Assessment & Plan (08/01/2024 11:03 AM [...] (10/28/2024 5:35 PM EDT): - following with [facility] pulmonology - quit smoking 7 months ago Assessment & Plan (04/06/2024 6:43 AM EST): - following with [facility] pulmonology - quit smoking 7 months ago Assessment & Plan (11/20/2023 10:12 AM EDT): - following with [facility] pulmonology - quit smoking 4 months ago Assessment & Plan (08/11/2023 6:11 PM EDT): - following with [facility] pulmonology Family history of colon cancer 08/04/2023 GERD (gastroesophageal reflux disease) History of sphincterotomy of sphincter of Oddi 0 08/04/2023 Sessile colonic polyp 08/04/2023 Assessment & Plan (11/20/2023 10:15 AM EDT): - seen by [facility] GI, and is being scheduled for colonoscopy in September 2023 Assessment & Plan (08/11/2023 6:12 PM EDT): - seen by [facility], and is being scheduled for colonoscopy [...] and right lower lobe. -recently seen by manager beverage. Because there was no pulmonary nodule, surveillance [...] and right lower lobe. -recently seen by manager beverage. Because there was no pulmonary nodule, surveillance [...] and right lower lobe. -recently seen by manager beverage. Because there was no pulmonary nodule, surveillance [...] and right lower lobe. -recently seen by manager beverage. Because there was no pulmonary nodule, surveillance [...] Assessment & Plan (10/24/2024 4:10 PM EDT): -Addresser: BORISCCJanel, last seen in July 2023 -nuclear stress test in June 2021 which was not diagnostic for ischemia -09/08/21 TTE Moderate global hypokinesis. LVEF 30-35%. Moderate aortic regurgitation. -07/05/22 Echocardiogram results showed EF 25-30%. LV size and wall thickness are normal. Mid to distal, anterior, anteroseptal, and apical espino are akinetic. Mild aortic regurgitation. -07/04/23 echocardiogram: Mod global hypokynesis. [id number]%. Mild-to-mod aortic regurgitation. No . Mild thickening of anterior and posterior mitral valve leaflets. No pulmonary hypertension. -current medications: Entresto 49 mg-51 mg BID, aspirin 81 mg daily; metoprolol succinate 25 mg daily; furosemide 20 mg daily - Patient was evaluated for ICD / BiV Devices. Currently still being an option, but not urgent per washer operator. Reassess in 6 mo follow up and 12-mo TTE per washer operator. - Continuing optimizing risk factor management, medication adherence, and working on lifestyle modifications - Psychiatric medications cause prolonged QT. Monitor closely. Assessment & Plan (04/06/2024 7:07 AM EST): -Addresser: RADHA, last seen in July 2023 -nuclear stress test in June 2021 which was not diagnostic for ischemia -09/08/21 TTE Moderate global hypokinesis. LVEF 30-35%. Moderate aortic regurgitation. -07/05/22 Echocardiogram results showed EF 25-30%. LV size and wall thickness are normal. Mid to distal, anterior, anteroseptal, and apical espino are akinetic. Mild aortic regurgitation. -07/04/23 echocardiogram: Mod global hypokynesis. [id number]%. Mild-to-mod aortic regurgitation. No . Mild thickening of anterior and posterior mitral valve leaflets. No pulmonary hypertension. -current medications: Entresto 49 mg-51 mg BID, aspirin 81 mg daily; metoprolol succinate 25 mg daily; furosemide 20 mg daily - Patient was evaluated for ICD / BiV Devices. Currently still being an option, but not urgent per washer operator. Reassess in 6 mo follow up and 12-mo TTE per washer operator. - Continuing optimizing risk factor management, medication adherence, and working on lifestyle modifications - Psychiatric medications cause prolonged QT. Monitor closely. Assessment & Plan (11/20/2023 10:15 AM EDT): -Addresser: RADHA, last seen on 07/12/22. -nuclear stress test in June 2021 which was not diagnostic for ischemia -09/08/21 TTE Moderate global hypokinesis. LVEF 30-35%. Moderate aortic regurgitation. -07/05/22 Echocardiogram results showed EF 25-30%. LV size and wall thickness are normal. Mid to distal, anterior, anteroseptal, and apical espino are akinetic. Mild aortic regurgitation. -07/04/23 echocardiogram: Mod global hypokynesis. [id number]%. Mild-to-mod aortic regurgitation. No . Mild thickening of anterior and posterior mitral valve leaflets. No pulmonary hypertension. -current medications: Entresto 49 mg-51 mg BID, aspirin 81 mg daily; metoprolol succinate 25 mg daily - Patient was evaluated for ICD / BiV Devices. Currently still being an option, but not urgent per washer operator. Reassess in 6 mo follow up and 12-mo TTE per washer operator. - Continuing optimizing risk factor management, medication adherence, and working on lifestyle modifications - Psychiatric medications cause prolonged QT. Monitor closely. Assessment & Plan (08/09/2023 4:53 AM EDT): -Addresser: RADHA, last seen on 07/12/22. -nuclear stress [...] being an option, but not urgent per washer operator. Reassess in 6 mo follow up and 12-mo TTE per washer operator. - Continuing optimizing risk factor management, medication adherence, and working on lifestyle modifications - Psychiatric medications cause prolonged QT. Monitor closely. Assessment & Plan (03/30/2023 6:30 AM EST): -Addresser: RADHA, last seen on 07/12/22. -nuclear stress [...] being an option, but not urgent per washer operator. Reassess in 6 mo follow up and 12-mo TTE per washer operator. - Continuing optimizing risk factor management, medication adherence, and working on lifestyle modifications - Psychiatric medications cause prolonged QT. Monitor closely. Assessment & Plan (08/05/2022 11:37 AM EDT): -Addresser: RADHA, last seen on 07/12/22. -nuclear stress [...] being an option, but not urgent per washer operator. Reassess in 6 mo follow up and 12-mo TTE per washer operator. - Continuing optimizing risk factor management, [...] now interested in ICD or BiV Devices -Addresser: RADHA, last seen on 11/24/21 and 12/29/21. Referred for biventricular device placement evaluation. Pt declined ICD or BiV devices. Continuing medical management with Entresto. -nuclear stress test in June 2021 which was not diagnostic for ischemia -due to his low EF, pacemaker may be indicated -follow-up with washer operator as scheduled -continue working on lifestyle [...] - Consider intensifying statin therapy and/or changing [place] 3 to icosapent ethyl. Assessment & Plan [...] EST): -followed by psychiatrist, Dr. Vazquez at [facility] -continue Trazodone, Sertaline and Quetiapine with caution (DDI ? prolonged OTc) - continue animal therapy with dog / pharmaceutical physician animal Assessment & Plan (11/20/2023 10:26 AM EDT): -followed by psychiatrist, Dr. Vazquez at [facility] -continue Trazodone, Seroquel and Quetiapine with caution (DDI ? prolonged OTc) -requested psychiatrist to review and adjust medications if possible due to his heart failure. Assessment & Plan (08/05/2022 10:20 AM EDT): -followed by psychiatristDr. Vazquez at [facility] -continue Trazodone, Seroquel and Quetiapine with caution (DDI ? prolonged OTc) -requested psychiatrist to review and adjust medications if possible due to his heart failure. Assessment & Plan (04/21/2022 9:30 AM EST): -followed by psychiatrist, Dr. Vazquez at [facility] -continue Trazodone, Seroquel and Quetiapine with caution (DDI ? prolonged OTc) -requested psychiatrist to review and adjust medications if possible due to his heart failure. 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 Bocanegra in Feb 2024 -Last exacerbation in Nov 2022. Prescribed Augmentin by manager beverage. -exacerbation frequency 4 times per year -Hx intubation, mainly for overdose (opioid and BZD) -PFT 03/25/20 Bronchial asthma -continue Fluticasone / umeclidinium / vilanterol as directed -continue theophylline as prescribed -Proper mouth care discussed again -Continue albuterol HFA and nebulizer prn as rescue -Continue smoking cessation effort and maintaining abstinence Assessment & Plan (04/06/2024 6:46 AM EST): -followed by [facility] manager beverage, last seen by Dr. Bocanegra in Feb 2024 -Last exacerbation in Nov 2022. Prescribed Augmentin by manager beverage. -exacerbation frequency 4 times per year -Hx intubation, mainly for overdose (opioid and BZD) -PFT 03/25/20 Bronchial asthma -continue Fluticasone / umeclidinium / vilanterol as directed -continue theophylline as prescribed -Proper mouth care discussed again -Continue albuterol HFA and nebulizer prn as rescue -Continue smoking cessation effort and maintaining abstinence Assessment & Plan (11/20/2023 10:13 AM EDT): -followed by [facility] manager beverage, last seen on 03/23/23. -Last exacerbation in Nov 2022. Prescribed Augmentin by manager beverage. -exacerbation frequency 4 times per year -Hx intubation, mainly for overdose (opioid and BZD) -PFT 03/25/20 Bronchial asthma -continue Fluticasone / umeclidinium / vilanterol as directed -continue theophylline as prescribed -Proper mouth care discussed again -Continue albuterol HFA and nebulizer prn as rescue -Work on smoking cessation Assessment & Plan (08/09/2023 4:52 AM EDT): >>ASSESSMENT AND PLAN FOR CHRONIC OBSTRUCTIVE LUNG DISEASE ([facility]) WRITTEN ON 08/03/2022 10:23 AM BY BUTCH REDMOND -followed by [facility] manager beverage, last seen on 04/07/22. -Last exacerbation in February 2022, bronchitis exacerbation. Rx azithromycin and annual CT Scan. Pt to continue Anoro and theophylline -Pt had 2 antibiotic courses for aspiration pneumonia in Mar / Apr 2021 and 1 antibiotic / prednisone for COPD exacerbation in May 2021 -exacerbation frequency 5 times per year ([id number]) -Hx intubation, mainly for overdose (opioid and BZD) -PFT 03/25/20 Bronchial asthma -continue Trelegy as directed -continue theophylline as prescribed -Proper mouth care discussed again -Continue albuterol HFA and nebulizer prn as rescue -Work on smoking cessation Assessment & Plan (08/09/2023 4:52 AM EDT): >>ASSESSMENT AND PLAN FOR CHRONIC OBSTRUCTIVE LUNG DISEASE ([facility]) WRITTEN ON 04/01/2023 6:48 AM BY HALLIE CHAVIRA MD -followed by [facility] manager beverage, last seen on 03/23/23. -Last exacerbation in Nov 2022. Prescribed Augmentin by manager beverage. -exacerbation frequency 4 times per year -Hx intubation, mainly for overdose (opioid and BZD) -PFT 03/25/20 Bronchial asthma -continue Fluticasone / umeclidinium / vilanterol as directed -continue theophylline as prescribed -Proper mouth care discussed again -Continue albuterol HFA and nebulizer prn as rescue -Work on smoking cessation Assessment & Plan (08/11/2023 6:11 PM EDT): -followed by [facility] manager beverage, last seen on 03/23/23. -Last exacerbation in Nov 2022. Prescribed Augmentin by manager beverage. -exacerbation frequency 4 times per year -Hx [...] ASTHMA WITH COPD (CHRONIC OBSTRUCTIVE PULMONARY DISEASE) ([facility]) WRITTEN ON 04/21/2022 9:31 AM BY BUTCH REDMOND -followed by [facility] manager beverage, last seen on 04/07/22 -Last exacerbation in February 2022, bronchitis exacerbation. Rx azithromycin and annual CT Scan. Pt to continue Anoro and theophylline -Pt had 2 antibiotic courses for aspiration pneumonia in Mar / Apr 2021 and 1 antibiotic / prednisone for COPD exacerbation in May 2021 -exacerbation frequency 5 times per year ([id number]) -Hx intubation, mainly for overdose (opioid and BZD) -PFT 03/25/20 Bronchial asthma -continue Trelegy as directed -continue theophylline as prescribed -Proper mouth care discussed again -Continue albuterol HFA and nebulizer prn as rescue -Work on smoking cessation >>ASSESSMENT AND PLAN FOR CHRONIC OBSTRUCTIVE LUNG DISEASE ([facility]) WRITTEN ON 04/21/2022 9:31 AM BY BUTCH REDMOND -followed by [facility] manager beverage, last seen on 04/07/22. -Last exacerbation in February 2022, bronchitis exacerbation. Rx azithromycin and annual CT Scan. Pt to continue Anoro and theophylline -Pt had 2 antibiotic courses for aspiration pneumonia in Mar / Apr 2021 and 1 antibiotic / prednisone for COPD exacerbation in May 2021 -exacerbation frequency 5 times per year ([id number]) -Hx intubation, mainly for overdose (opioid and BZD) -PFT 03/25/20 Bronchial asthma -continue Trelegy as directed -continue theophylline as prescribed -Proper mouth care discussed again -Continue albuterol HFA and nebulizer prn as rescue -Work on smoking cessation Schizophrenia 07/19/2011 Assessment & Plan (10/28/2024 5:34 PM EDT): -followed by psychiatrist, Dr. Vazquez at [facility] -continue Trazodone, Sertraline and Quetiapine with caution (DDI ? prolonged OTc) -animal therapy with dog has been effective. Letter for pharmaceutical physician animal / therapy animal was signed and given to the patient. Assessment & Plan (04/06/2024 7:05 AM EST): -followed by psychiatristDr. Vazquez at [facility] -continue Trazodone, Sertraline and Quetiapine with caution (DDI ? prolonged OTc) -animal therapy with dog has been effective. Letter for pharmaceutical physician animal / therapy animal was signed and given to the patient. Assessment & Plan (11/20/2023 10:24 AM EDT): -followed by psychiatristDr. Vazquez at [facility] -continue Trazodone, Seroquel and Quetiapine with caution (DDI ? prolonged OTc) -requested psychiatrist to review and adjust medications if possible due to his heart failure. Assessment & Plan (08/09/2023 4:56 AM EDT): -followed by psychiatrDr. Taylor castañeda at [facility] -continue Trazodone, Seroquel and Quetiapine with caution (DDI ? prolonged OTc) -requested psychiatrist to review and adjust medications if possible due to his heart failure. Assessment & Plan (08/05/2022 10:20 AM EDT): -followed by psychiatrist, Dr. Vazquez at [facility] -continue Trazodone, Seroquel and Quetiapine with caution (DDI ? prolonged OTc) -requested psychiatrist to review and adjust medications if possible due to his heart failure. Resolved Problems Problem Noted Date Diagnosed Date Resolved Date Chronic anemia 08/04/2023 04/06/2024 Dyspnea on exertion 08/04/2023 11/20/19 Colon cancer screening 08/04/202311/17 Smoker 08/04/2023 04/06/2024 COPD exacerbation (CMS/HCC) 08/04/2023 08/09/2023 Preoperative examination 08/03/202206/2022 Assessment & Plan (08/05/2022 10:20 AM EDT): - Patient is scheduled for a low-intermittent risk procedure. Patient is considered moderate to high risk patient. His functional level is 3-4 METs. Pt was already seen by his manager beverage and washer operator again in July 2022, and was [...] Encounters Date Type Department Care Team Description 12/04/2024 Telephone [facility] MEDICINE [address] [place] [address] Hallie Chavira MD fyi 12/03/2024 Refill [facility] PEDIATRICS [address] [place] [address] Hallie Chavira MD Hypomagnesemia 12/03/2024 Orders Only GENERIC EXTERNAL DATA DEPARTMENT Provider, Generic External Data 11/13/2024 Refill [facility] MED & PEDS [address] [place] [address] Hallie Chavira MD Anemia, unspecified type 11/13/2024 Telephone [facility] [address] [place] [address] Hallie Chavira MD FYI 11/08/2024 Telephone [facility] [place] [facility] [place] [address] Hallie Chavira MD FYI 10/31/20[address] [place] [address] Hallie Chavira MD FYI 10/29/20[address] [place] [address] Hallie Chavira MD FYI 10/25/[address] [place] [address] Hallie Chavira MD 10/24/2024 10:15 AM EDT Office [address] [place] [address] Hallie Chavira MD Primary hypertension (Primary Dx); Heart failure with reduced ejection fraction (CMS/HCC); 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) (CMS/HCC); Pulmonary fibrosis (CMS/HCC); Elevated PSA; Benign prostatic hyperplasia with nocturia; Schizophrenia, unspecified type (CMS/HCC); Hypomagnesemia; Encounter for monitoring of theophylline therapy; Dyslipidemia 10/24/2024 Travel 10/24/20[address] [place] [address] Hallie Chavira MD notes 10/23/[address] [address] Hallie Chavira MD chart prep 10/16/2024 9:30 AM EDT Office Visit [facility] [place] [address] Alem Corley NP Urinary incontinence, unspecified type (Primary Dx); Increased stool volume; Hypomagnesemia 10/16/2024 Results Follow-Up [facility] [place] [address] Alem Corley NP POCT urinalysis dipstick manually resulted, Hemoglobin A1c, Magnesium 10/16/2024 Travel 10/15/[address] [place] [address] Reagan Cruz [place] CHARTPREP 10/15/[address] [place] [address] Hallie Chavira MD Nurse Triage 10/11/2024 Refill [facility] [address] [place] [address] Hallie Chavira MD Vitamin deficiency; Hyperlipidemia, unspecified 10/09/2024 Telephone [facility] [address] [place] [address] Hallie Chavira MD Nurse Triage 10/08/2024 Telephone [facility] [address] [place] [address] Hallie Chavira MD Nurse Triage 09/30/2024 Telephone [facility] [address] [place] [address] Hallie Chavira MD fyi 09/29/2024 Refill [facility] [address] [place] [address] Hallie Chavira MD Constipation, unspecified constipation type 09/26/2024 Telephone [facility] [address] [place] [address] Hallie Chavira MD FYI 09/20/2024 Telephone [facility] [address] [place] [address] Hallie Chavira MD fyi 09/18/2024 Refill [facility] MED & PEDS [address] [place], [place] [phone] Hallie Chavira MD Anemia, unspecified type from Last 3 Months Immunizations Immunization Administration [...] housing situation today? I have naseemcarolynn courtney 07/28/[address] you [...] 10:00 AM EST Office Visit [facility] [address] [place] [address] Hallie Chavira MD [address] [place] [address] Health Maintenance Due Date Last Done Comments COVID-19 Vaccine ( season) 2024 04/10/2024, 03/30/2023, 03/21/2022, Additional history exists Influenza Vaccine (#1) 2024 , 03/30/2023, 04/14/2022, Additional history exists Depression Screening 11/19/2024 11/20/2023, 11/20/19 Alcohol/Substance Use Screening 04/02/2025 04/02/2024 SDOH Screening 07/09/2025 07/09/2024 Diabetes: Hemoglobin A1C 10/16/2025 025, 04/02/2024, 04/05/2023, Additional history exists Tobacco Screening 10/24/2025 10/24/2024 Lipid Panel 12/03/2029 12/03/2024, 03/14, 04/02/2024, Additional history exists DTaP/Tdap/Td [...] Procedure Name Priority Date/Time Associated Diagnosis Comments BASIC METABOLIC PANEL Routine 12/05/2024 9:52 AM EDT Hypomagnesemia MAGNESIUM Routine 12/05/2024 9:52 AM EDT Hypomagnesemia PSA, TOTAL WITH REFLEX TO PSA, FREE Routine 12/03/2024 11:26 AM EDT TSH W/REFLEX TO FT4 Routine 12/03/2024 1 1:26 AM EDT Encounter for monitoring of theophylline therapy LIPID PANEL WITH REFLEX TO DIRECT LDL Routine 12/03/2024 11:26 AM EDT Dyslipidemia COMPREHENSIVE METABOLIC PANEL Routine 12/03/2024 11:26 AM EDT Primary hypertension MAGNESIUM Routine 12/03/2024 11:26 AM EDT Hypomagnesemia MAGNESIUM Routine 10/16/2024 10:37 AM EDT Hypomagnesemia Increased stool volume HEMOGLOBIN A1C Routine 10/16/2024 10:37 AM EDT Urinary incontinence, unspecified type POCT URINALYSIS DIPSTICK Routine 10/16/2024 10:34 AM EDT Urinary incontinence, unspecified type CULTURE, URINE, ROUTINE Routine 10/16/2024 10:17 AM EDT Urinary incontinence, unspecified type from Last 3 Months Results * Magnesium (12/05/2024 9:52 AM EDT) Only the most recent of3 resultswithin the time period is included. Magnesium 1.7 1.6 - 2.6 mg/dL [facility] Blood Venous blood specimen / Unknown 12/05/2024 9:52 AM EDT 12/05/2024 9:52 AM EDT us Hallie Chavira MD LAB BLOOD ORDERABLES Final Resul t [facility] [address] [place] [address] [phone] * (ABNORMAL) Basic Metabolic Panel (12/05/2024 9:52 AM EDT) Sodium 143 135 - 145 mmol/L [facility] Potassium 3.5 3.3 - 5.1 mmol/L [facility] Chloride 109(H) 96 - 108 mmol/L [facility] Carbon Dioxide 24 22 - 29 mmol/L [facility] Anion Gap 14 12 - 20 [facility] Urea Nitrogen (BUN) 14 9 - 16 mg/dL [facility] Creatinine, Serum 0.95 0.5 - 1.4 mg/dL [facility] Estimated Glomerular Filt Rate >60 [facility] Comment:Chronic Kidney Disea se: Estimated GFR < 60 mL/min/[id number] Kidney Disease: Estimated GFR < 15 mL/min/1.73m2 Glucose 169(H) 60 - 115 mg/dL [facility] Calcium 8.8 8.4 - 10.2 mg/dL [facility] Blood Venous blood specimen / Unknown 12/05/2024 9:52 AM EDT 12/05/2024 9:52 AM EDT Hallie Chavira MD LAB BLOOD ORDERABLES Final Resul t Performing Organization Address City/[facility]/ZIP Co de Phone Number [facility] [address] [place] [phone] * TSH W/Reflex to FT4 (12/03/2024 11:26 AM EDT) TSH reflex Free T4 1.97 0.32 - 4.0 uIU/mL [facility] Blood Venous blood specimen / Unknown 12/03/2024 11:26 AM EDT 12/03/2024 11:26 AM EDT Hallie Chavira MD LAB BLOOD ORDERABLES Final Resul t Performing Organization Address City/[facility]/ZIP Co de Phone Number [facility] [address] [place] [phone] * (ABNORMAL) PSA, Total With Reflex to PSA, Free (12/03/2024 11:26 AM EDT) PSA,Total (Free>4and<10) 64.19(H ) 0.00 - 4.00 ng/mL [facility] Comment:A Free PSA was not [...] Provider LAB BLOOD ORDERAB LES Final Result [facility] [address] [place] [address] [phone] * Lipid Panel with Reflex to Direct LDL (12/03/2024 11:26 AM EDT) Triglycerides 106 <150 mg/dL [facility] Comment:Desirable Triglyceri de: less than 150 mg/dLBorderline High Triglyceride 150-199 mg/dLHigh Triglyceride: 200-499 mg/dLVery High Triglyceride: greater than or equal to 5OO mg/dL Cholesterol 116 <200 mg/dL [facility] Comment:Desirable Cholestero l: less than 200 mg/dLBorderline High Cholesterol: 200-239 mg/dLHigh Cholesterol: greater than 239 mg/dL LDL Cholesterol Calculated 53 <100 mg/dL [facility] Comment:Desirable LDL: less than 100 mg/dLNear Optimal/Above Optimal LDL: 110- 129 mg/dLBorderline High LDL: 130-159 mg/dLHigh LDL: 160-189 mg/dLVery High LDL: greater than or equal to 190 mg/dL HDL Cholesterol 42 >40 mg/dL [facility] Comment:Desirable HDL: great er than 40 mg/dL Note: This HDL assay may give artificially low results in patients with liver disease. Blood 12/03/2024 11:2 6 AM EDT 12/03/2024 11:26 AM EDT us Hallie Chavira MD LAB BLOOD ORDERABLES Final Resul t [facility] [address] [place] [phone] * (ABNORMAL) Comprehensive Metabolic Panel (12/03/2024 11:26 AM EDT) Sodium 141 135 - 145 mmol/L [facility] Potassium 3.4 3.3 - 5.1 mmol/L [facility] Chloride 108 96 - 108 mmol/L [facility] Carbon Dioxide 24 22 - 29 mmol/L [facility] Anion Gap 12 12 - 20 [facility] Urea Nitrogen (BUN) 14 9 - 16 mg/dL [facility] Creatinine, Serum 0.98 0.5 - 1.4 mg/dL [facility] Estimated Glomerular Filt Rate >60 [facility] Comment:Chronic Kidney Disea se: Estimated GFR < 60 mL/min/1.10t5Dpjpuu Kidney Disease: Estimated GFR < 15 mL/min/1.73m2 Glucose 129(H) 60 - 115 mg/dL [facility] Calcium 8.9 8.4 - 10.2 mg/dL [facility] Bilirubin, Total 1.4(H) 0.0 - 1.0 mg/dL [facility] Aspartate Amino Transferase 34 5 - 37 U/L [facility] Alanine Aminotransferase 14 0 - 40 U/L [facility] Total Protein 7.0 6.5 - 8.0 g/dL [facility] Albumin Level 4.3 3.5 - 5.0 g/dL [facility] Alkaline Phosphatase 53 39 - 117 U/L [facility] Blood Venous blood specimen / Unknown 12/03/2024 11:26 AM EDT 12/03/2024 11:26 AM EDT us Hallie Chavira MD LAB BLOOD ORDERABLES Final Resul t Performing Organization Address [facility] Co de Phone Number [facility] [address] [place] [phone] * Hemoglobin A1c (10/16/2024 10:37 AM EDT) Hemoglobin A1c 5.9 <6.0 % [facility] Comment:Hemoglobin A1C Refer ence Range Adults: 4.8 - 6.0 % Non diabetic: < 6.0 % Goal: < 7.0 %Additional Action Suggested: > 8.0 %Note: Hemoglobin A1c results are invalid for patients with abnormal amounts of HbF. Blood transfusions may impact the HbA1c concentration in the patient sample. Estimated Average Glucose 123 mg/dL [facility] Comment:eAG = Estimated ave rage glucose which is %A1C expressed asaverage glucose, using the formula of the L1E-QofsplfRtbaxvm Glucose study (ADAG), Diabetes Care, Vol.31,#8,Oct. 2007 Blood Venous blood specimen / Unknown 10/16/2024 10:37 AM EDT 10/16/2024 11:14 AM EDT us Alem Corley NP LAB BLOOD ORDERABLES Final Resu lt Performing Organization Address [facility] Co de Phone Number [facility] [address] [place] [phone] * POCT urinalysis dipstick manually resulted [...] Media Lot # [id number] Lot# Expiration Date [id number] Urine 10/16/2024 10:3 4 AM EDT us Alem Corley NP POINT OF CARE TEST ENTER/EDIT O RDERABLES Final Result * Culture, Urine, Routine (10/16/2024 10:17 AM EDT) Urine Urine specimen obtained by clean catch procedure / Unknown 10/16/2024 10:17 AM EDT 10/16/2024 5:36 PM EDT Comment:UACC Narrative [facility] - 10/18/2024 10:44 AM EDT Urine Culture Report Result Urine Culture < 10,000 cfu/ml Specimen Source: Urine clean catch us Alem Corley SENIOR TRAINER LAB MICROBIOLOGY - GENERAL ORDE RABSINDHU Final Result [facility] [address] [place] [phone] from Last 3 Months Insurance [address] [place] [phone] [facility] OPTIONS (O D-SNP) YUNIOR THAKKAR [id number] [place] [address] [place] [phone] Care Teams Chemistry Instructor Relationship Specialty Start Date End Date Hallie Chavira MD [address] [place] [address] [phone] PCP - General Family Medicine 03/13/18 [facility] 07/05/19
--- OUTSIDE RECORDS SUMMARY | 2024-12-13 11:23 | XMS_ITS | Encounter Summary ---
Author Organization [employer] Address [address] [facility] 7t [place] [address] Care Team Providers Care Excavating Supervisor Name Role Phone Hallie Mcclendon MD Primary Care Provider [phone] Reason for Referral * Consultation (Urgent) - Closed Specialty Diagnoses / Procedures Referred By Mya t Referred To Contact Orthopaedic Surgery Diagnoses Left forearm pain Fall, subsequent encounter Hallie Mcclendon MD [address] [place] [address] Phone: tel: fax: [facility] [address] [place] [address] Phone: tel: Referral ID Status Reason Start Date Expiration Date V isits Requested Visits Authorized [id number] Closed Specialty Services Required 09/22/2023 09/21/2024 1 1 Encounter Details Date Type Department Care Team (Late st Contact Info) Description 09/22/2023 Orders Only [facility] [address] [place], [place] [phone] Hallie Mcclendon MD [address] [place], [place] [phone] Left forearm pain (Primary Dx); Fall, subsequent [...] 10:00 AM EST Office Visit [facility] [address] [place] [address] Hallie Mcclendon MD [address] [place] [address] Scheduled Referrals Name Type Priority Associated Diagnoses [...] documented as of this encounter Care Teams Excavating Supervisor Relationship Specialty Start Date End Date Hallie Mcclendon MD [address] [place] [address] PCP - General Family Medicine 03/13/18 [facility] 07/05/19 documented as of this encounter
--- OUTSIDE RECORDS SUMMARY | 2024-12-13 11:23 | XMS_ITS | Encounter Summary ---
Author Organization [employer] Address [address] [facility] 7[address] [place] [address] Care Team Providers Care Roof Shingler Name Role Phone Hallie Mcclendon MD Primary Care Provider [phone] Reason for Visit * Reason Onset Date Comments Med Refill 09/15/2023 Encounter Details Date Type Department Care Team ([facility] st Contact Info) Description 09/15/2023 Telephone [facility] [address] [place], [place] [phone] Hallie Mcclendon MD [address] [place], [place] [phone] Med Refill Social History Tobacco Use Types [...] 1000MG capsule capsule To be sent to: [facility] [place], [place] - [address] [place] [address] documented in this encounter Plan of Treatment Upcoming Encounters Date Type Department Care Team (Late st Contact Info) Description 01/20/2025 10:00 AM EST Office Visit [facility] [address] [place] [address] Hallie Mcclendon MD [address] [place] [address] documented as of this encounter Visit Diagnoses Not on filedocumented in this encounter Additional Health Concerns Assessment Noted Time PHQ-9 Depression Total Score: 0 08/09/19 24 9:27 AM EDT documented as of this encounter Care Teams Roof Shingler Relationship Specialty Start Date End Date Hallie Mcclendon MD [address] [place] [phone] PCP - General Family Medicine 03/13/18 [facility] 07/05/19 documented as of this encounter
--- OUTSIDE RECORDS SUMMARY | 2024-12-13 11:23 | XMS_ITS | Encounter Summary ---
Author Organization [employer] Address [address] [facility] 7t [place] [address] Care Team Providers Care Roller Structural Mill Name Role Phone Hallie Mcclendon MD Primary Care Provider [phone] Encounter Details Date Type Department Care Team ([facility] st Contact Info) Description 04/27/2023 Orders Only [facility] [address] [place] [address] Hallie Mcclendon MD [address] [place] [address] Social History Tobacco Use Types Packs/Day Years [...] EST Office Visit [facility] [address] [place] [phone] Hallie Mcclendon MD [address] [place] [phone] documented as of this encounter Visit Diagnoses Not on filedocumented in this encounter Care Teams Roller Structural Mill Relationship Specialty Start Date End Date Halile Mcclendon MD [address] [place] [phone] PCP - General Family Medicine 03/13/18 [facility] 07/05/19 documented as of this encounter
--- OUTSIDE RECORDS SUMMARY | 2024-12-13 11:23 | XMS_ITS | Encounter Summary ---
Author Organization [employer] Address [address] [facility] 7t [place] [address] Care Team Providers Care President And Chief Executive Officer Name Role Phone Hallie Mcclendon MD Primary Care Provider [phone] Encounter Details Date Type Department Care Team (Late st Contact Info) Description 06/20/2022 Telephone [facility] [address] [place] [phone] Hallie Mcclendon MD [address] [place] [address] [phone] Social History Tobacco Use Types Packs/Day Years [...] Description 01/20/2025 10:00 AM EST Office Visit [facility] [address] [place] [phone] Hallie Mcclendon MD [address] [place] [address] [phone] documented as of this encounter Visit Diagnoses Not on filedocumented in this encounter Care Teams President And Chief Executive Officer Relationship Specialty Start Date End Date Hallie Mcclendon MD [address] [place] [phone] PCP - General Family Medicine 03/13/18 [facility] 07/05/19 documented as of this encounter
--- OUTSIDE RECORDS SUMMARY | 2024-12-13 11:23 | XMS_ITS | Encounter Summary ---
Author Organization [employer] Address [address] [facility] 7t [place] [address] Care Team Providers Care Lead Burner Supervisor Name Role Phone Hallie Mcclendon MD Primary Care Provider [phone] Reason for Visit * Reason Onset Date Comments CRITICAL LAB 12/03/2024 Encounter Details Date Type Department Care Team ([facility] st Contact Info) Description 12/03/2024 Refill [facility] [address] [place], [place] [phone] Hallie Mcclendon MD [address] [place], [place] [phone] Hypomagnesemia Social History Tobacco Use Types Packs/Day Years [...] encounter Miscellaneous Notes * Telephone Encounter - Helen Hope RN - 12/10/2024 9:55 AM EDT 12/05/24 pt had labs redrawn, magnesium 1.7 WNL * Telephone Encounter - Helen Hope RN - 12/03/2024 2:13 PM EDT Spoke to PCP Dr Mcclendon in office, verbal orders as follows: - start pt on 400mg magnesium every other day and report any side effects - recheck magnesium in 1-2 weeks (around 12/10-12/17/24) - ER precautions: tremors, muscle spasms, nystagmus, arrhythmias, severe fatigue Called pt via MORA Brennan, reviewed above message. Pt states that [facility] nurse Jenae picks up his medication and gave verbal consent to call her to advise on plan. Pt verbalized understanding of plan of care. Called NICOLE Emanuel RN, advised of above message, Jenae will machine operator hop picker Rx tomorrow and assist with medication administration. She also reports pt had fall yesterday, had vomited the night before and slipped on vomit the following AM. Denies head strike or loss of consciousness, pt reported back pain that has improved and heis taking tylenol 1 tab Q6 hrs. Gait normal. His BP today AM was 98/62. She said that the majority of the time that she holds his metoprolol 12.5mg is in the evenings when SBP <90. Advised [facility] to call back or advise pt to come to [facility] or call for sick appointment if back pain unimproved or worsens, Jenae verbalized understanding. * Telephone Encounter - Keri Mullen RN - 12/03/2024 1:52 PM EDT TC incoming from [facility] with critical lab: Magnesium of 1.4. Helen SHORT aware Will route to PCP and team nurses to advise. documented in this encounter Plan of Treatment Upcoming Encounters Date Type Department Care Team (Late st Contact Info) Description 01/20/2025 10:00 AM EST Office Visit [facility] [address] [place] [address] Hallie Mcclendon MD [address] [place] [address] documented as of this encounter Procedures Procedure Name Priority Date/Time Associated Diagnosis Comments MAGNESIUM Routine 12/05/2024 9:52 AM EDT Hypomagnesemia BASIC METABOLIC PANEL Routine 12/05/2024 9:52 AM EDT Hypomagnesemia documented in this encounter Results * (ABNORMAL) Basic Metabolic Panel (12/05/2024 9:52 AM EDT) Sodium 143 135 - 145 mmol/L [facility] Potassium 3.5 3.3 - 5.1 mmol/L [facility] Chloride 109(H) 96 - 108 mmol/L [facility] Carbon Dioxide 24 22 - 29 mmol/L [facility] Anion Gap 14 12 - 20 [facility] Urea Nitrogen (BUN) 14 9 - 16 mg/dL [facility] Creatinine, Serum 0.95 0.5 - 1.4 mg/dL [facility] Estimated Glomerular Filt Rate >60 [facility] Comment:Chronic Kidney Disea se: Estimated GFR < 60 mL/min/1.13m2Rwhomd Kidney Disease: Estimated GFR < 15 mL/min/1.73m2 Glucose 169(H) 60 - 115 mg/dL [facility] Calcium 8.8 8.4 - 10.2 mg/dL [facility] Blood Venous blood specimen / Unknown 12/05/2024 9:52 AM EDT 12/05/2024 9:52 AM EDT us Hallie Mcclendon MD LAB BLOOD ORDERABLES Final Resul t Performing Organization Address [facility] Co de Phone Number [facility] [address] [place] [phone] * Magnesium (12/05/2024 9:52 AM EDT) Magnesium 1.7 1.6 - 2.6 mg/dL [facility] Blood Venous blood specimen / Unknown 12/05/2024 9:52 AM EDT 12/05/2024 9:52 AM EDT us Hallie Mcclendon MD LAB BLOOD ORDERABLES Final Resul t Performing Organization Address [facility] Co de Phone Number [facility] [address] [place] [phone] documented in this encounter Visit Diagnoses Diagnosis Hypomagnesemia Disorders of magnesium metabolism documented in this encounter Additional Health Concerns Assessment Noted Time PHQ-9 Depression Total Score: 0 11/20/19 24 9:22 AM EDT documented as of this encounter Care Teams Lead Burner Supervisor Relationship Specialty Start Date End Date Hallie Mcclendon MD [address] [place] [phone] PCP - General Family Medicine 03/13/18 [facility] 07/05/19 documented as of this encounter
--- OUTSIDE RECORDS SUMMARY | 2024-12-13 11:23 | XMS_ITS | Encounter Summary ---
Author Organization [employer] Address [address] [facility] 7t [place] [address] Care Team Providers Care Farm Machinery Mechanic Name Role Phone Hallie Mcclendon MD Primary Care Provider Encounter Details Date Type Department Care Team (Late st Contact Info) Description 12/09/2022 Orders Only [facility] [address] [place] [address] Hallie Mcclendon MD [address] [place] [phone] Hematemesis, unspecified whether nausea present (Primary Dx); [...] Description 01/20/2025 10:00 AM EST Office Visit [facility] [address] [place] [address] Hallie Mcclendon MD [address] [place] [address] documented as of this encounter Procedures Procedure [...] B12 >2,000(H ) 200 - 900 pg/mL [facility] Comment:NORMAL 200-900 PG/ML INDETERMINATE 160-199 PG/ML DEFICIENT < 160 PG/ML Folate 10.6 > or = 4.0 ng/mL [facility] Comment:Reference Values:> o r = 4.0 ng/mL< 4.0 ng/mL suggests folate deficiency Methotrexate, aminopterin and folinic acid(leucovorin) are chemotherapeutic agents whose molecularstructures are similar to folate; therefore, the Architectfolate assay cannot be used for patients using these drugs. 12/13/2022 10:0 7 AM EDT 12/13/2022 10:07 AM EDT Hallie Mcclendon MD LAB BLOOD ORDERABLES Final Resul t Performing Organization Address City/[facility]/ZIP Co de Phone Number [facility] [address] [place] [phone] * (ABNORMAL) Iron And Total Iron Binding Capacity (12/13/2022 10:07 AM EDT) Pathologist [facility] Iron 131 45 - 160 mcg/dL [facility] Total Iron Binding Capacity 251 228 - 428 mcg/dL [facility] Percent Iron Saturation 52(H) 15 - 50 % [facility] Unsaturated Iron Binding 120 ug/dL [facility] Blood Venous blood specimen / Unknown 12/13/2022 10:07 AM EDT 12/13/2022 10:07 AM EDT Hallie Mcclendon MD LAB BLOOD ORDERABLES Final Resul t Performing Organization Address [facility]/ZIP Co de Phone Number [facility] [address] [place] [phone] * (ABNORMAL) Ferritin (12/13/2022 10:07 AM EDT) Ferritin 506(H) 20 - 250 ng/mL [facility] Blood Venous blood specimen / Unknown 12/13/2022 10:07 AM EDT 12/13/2022 10:07 AM EDT us Hallie Mcclendon MD LAB BLOOD ORDERABLES Final Resul t Performing Organization Address [facility]/ZIP Co de Phone Number [facility] [address] [place] [phone] * T4, Free (12/13/2022 10:07 AM EDT) Free T4 (Free Thyroxine) 0.90 0.71 - 1.85 ng/dL [facility] Blood Venous blood specimen / Unknown 12/13/2022 10:07 AM EDT 12/13/2022 10:07 AM EDT us Hallie Mcclendon MD LAB BLOOD ORDERABLES Final Resul t Performing Organization Address [facility] Co de Phone Number [facility] [address] [place] [phone] * TSH (12/13/2022 10:07 AM EDT) Thyroid Stimulating Hormone 2.54 0.32 - 4.0 uIU/mL [facility] Comment:TSH 3rd Generation ( [facility]) Blood Venous blood specimen / Unknown 12/13/2022 10:07 AM EDT 12/13/2022 10:07 AM EDT us Hallie Mcclendon MD LAB BLOOD ORDERABLES Final Resul t Performing Organization Address [facility] Co de Phone Number [facility] [address] [place] [phone] * Hemoglobin A1c (12/13/2022 10:07 AM EDT) Hemoglobin A1c 5.7 <6.0 % [facility] Comment:Hemoglobin A1C Refer ence Range Adults: 4.8 - 6.0 % Non diabetic: < 6.0 % Goal: < 7.0 %Additional Action Suggested: > 8.0 %Note: Hemoglobin A1c results are invalid for patients with abnormal amounts of HbF. Blood transfusions may impact the HbA1c concentration in the patient sample. Estimated Average Glucose 117 mg/dL [facility] Comment:eAG = Estimated ave rage glucose which is %A1C expressed asaverage glucose, using the formula of the F6M-NpjlwofSznhhcn Glucose study (ADAG), Diabetes Care, Vol.31,#8,Oct. 2007 Blood Venous blood specimen / Unknown 12/13/2022 10:07 AM EDT 12/13/2022 10:07 AM EDT us Hallie Mcclendon MD LAB BLOOD ORDERABLES Final Resul t [facility] [address] [place] [phone] [phone] * (ABNORMAL) Comprehensive Metabolic Panel (12/13/2022 10:07 AM EDT) Sodium 139 135 - 145 mmol/L [facility] Potassium 3.8 3.3 - 5.1 mmol/L [facility] Chloride 106 96 - 108 mmol/L [facility] Carbon Dioxide 24 22 - 29 mmol/L [facility] Anion Gap 13 12 - 20 [facility] Urea Nitrogen (BUN) 21(H) 9 - 16 mg/dL [facility] Creatinine, Serum 1.06 0.5 - 1.4 mg/dL [facility] Estimated Glomerular Filt Rate >60 [facility] Comment:NOTE: For -Am erican individuals, multiply the result by 1.210.Chronic Kidney Disease: Estimated GFR < 60 mL/min/1.75j0Gjvumn Kidney Disease: Estimated GFR < 15 mL/min/1.73m2 Glucose 104 60 - 115 mg/dL [facility] Calcium 10.3(H) 8.4 - 10.2 mg/dL [facility] Bilirubin, Total 0.5 0.0 - 1.0 mg/dL [facility] Aspartate Amino Transferase 25 5 - 37 U/L [facility] Alanine Aminotransferase 24 0 - 40 U/L [facility] Total Protein 7.6 6.5 - 8.0 g/dL [facility] Albumin Level 4.3 3.5 - 5.0 g/dL [facility] Alkaline Phosphatase 88 39 - 117 U/L [facility] Blood Venous blood specimen / Unknown 12/13/2022 10:07 AM EDT 12/13/2022 10:07 AM EDT us Hallie Mcclendon MD LAB BLOOD ORDERABLES Final Resul t [facility] [address] [place] [phone] * (ABNORMAL) CBC auto differential (12/13/2022 10:07 AM EDT) White Blood Count 8.1 4.8 - 10.8 X10*3/uL [facility] Red Blood Count 5.15 4.60 - 5.80 X10*6/uL [facility] Hemoglobin 15.5 14.0 - 18.0 g/dl [facility] Hematocrit 45.7 42.0 - 52.0 % [facility] Mean Corpuscular Volume 88.7 80.0 - 98.0 fL [facility] Mean Corpuscular Hemoglobin 30.1 27.0 - 33.0 pg [facility] Mean Corpuscular HGB Conc 33.9 31.0 - 36.0 g/dl [facility] Red Cell Distribution Width 12.7 11.0 - 16.0 % [facility] Platelet Count 182 160 - 400 X10*3/uL [facility] Mean Platelet Volume 10.5 9.4 - 12.4 fL [facility] Neutrophils Percent Auto 55.1 45 - 73 % [facility] Imm Gran Pct Auto 0.2 0.0 - 0.4 % [facility] Lymphocytes Percent Auto 30.2 20 - 40 % [facility] Monocytes Percent Auto 6.5 2 - 11 % [facility] Eosinophils Percent Auto 7.5(H) 0 - 4 % [facility] Basophils Percent Auto 0.5 0 - 2 % [facility] NRBC Pct Auto 0.0 0.0 - 0.2 /100WBC [facility] Neutrophils Absolute Auto 4.5 2.0 - 8.3 x10*3/uL [facility] Imm Gran Abs Auto 0.02 0.00 - 0.03 X10*3/uL [facility] Lymphocytes Absolute Auto 2.5 1.2 - 4.9 X10*3/uL [facility] Monocytes Absolute Auto 0.5 0.1 - 1.2 X10*3/uL [facility] Eosinophils Absolute Auto 0.6(H) 0.0 - 0.4 X10*3/uL [facility] Basophils Absolute Auto 0.0 0.0 - 0.2 X10*3/uL [facility] NRBC Abs Auto 0.000 0.0 - 0.012 X10*3/uL [facility] Blood Venous blood specimen / Unknown 12/13/2022 10:07 AM EDT 12/13/2022 10:07 AM EDT us Hallie Mcclendon MD LAB BLOOD ORDERABLES Final Resul t [facility] [address] [place] [phone] * B Type Natriuretic Peptide (BNP) (12/13/2022 10:07 AM EDT) B Type Natriuretic Peptide <10 <100 pg/mL [facility] Comment:For those patients w ho are being treated with Natrecor(nesiritide, recombinant BNP), BNP testing should beperformed at least two hours post treatment in order toensure that only endogenous levels of BNP are detected. Blood Venous blood specimen / Unknown 12/13/2022 10:07 AM EDT 12/13/2022 10:07 AM EDT us Hallie Mcclendon MD LAB BLOOD ORDERABLES Final Resul t [facility] [address] [place] [phone] documented in this encounter Visit Diagnoses Diagnosis Hematemesis, unspecified whether nausea present- Primary Heart failure with reduced ejection fraction (HCC) Dyslipidemia Other and unspecified hyperlipidemia Elevated TSH Other abnormal blood chemistry Class 1 obesity due to excess calories with serious comorbidity and body mass index (BMI) of 31.0 to 31.9 in adult documented in this encounter Care Teams Farm Machinery Mechanic Relationship Specialty Start Date End Date Hallie Mcclendon MD [address] [place] [phone] PCP - General Family Medicine 03/13/18 [facility] 07/05/19 documented as of this encounter
== END 2024-12-13 11:18 | disposition home or self-care (01) ==
LOC: HO.HUSH 10:29
PROVIDERS: PCP Family Medicine; Visit Provider Urology
DX: Z13.9 Encounter for screening, unspecified (principal); R97.20 Elevated prostate specific antigen [PSA]
CPT/HCPCS: 99214

== ENCOUNTER → 2024-12-13 10:29 | Outpatient (BNVA) | payer OTHER, SELFPAY | PROVIDERS: PCP Family Medicine; Visit Provider Urology | DX: R97.20 Elevated prostate specific antigen [PSA] (principal); N40.1 Benign prostatic hyperplasia with lower urinary tract symptoms; R39.15 Urgency of urination | CPT/HCPCS: 51798; 81003; 99212 ==

== ENCOUNTER 2025-01-21 09:44 | Outpatient (AMB) | payer OTHER, SELFPAY ==
--- OUTSIDE RECORDS SUMMARY | 2025-01-20 10:00 | XMS_ITS | Encounter Summary ---
Author Organization [employer] Address [address] [facility] 7t [place] [address] Care Team Providers Care Mri Specialist Name Role Phone Hallie Mcclendon MD Primary Care Provider [phone] Encounter Details Date Type Department Care Team ([facility] st Contact Info) Description 01/20/2025 10:00 AM EST Office Visit [facility] [address] [place] [address] Hallie Mcclendon MD [address] [place], [place] [phone] Heart failure with reduced ejection fraction (HCC) (Primary Dx); Encounter for immunization; Encounter for vaccination Social History Tobacco Use Types Packs/Day Years Used Date Smoking Tobacco: Former Cigarettes Passive Smoke Exposure: Current Smokeless Tobacco: Never Alcohol Use Standard Drinks/Week Comments Not Currently 0 (1 standard drink = 0.6 oz pur e alcohol) Depression Answer Date Recorded Patient Health Questionnaire-9 Score 0 01/20/2025 Patient Health Questionnaire-9 Score 0 01/20/2025 Last PHQ-9: Questionnaire Data Not on file 1 03/22/2024 Housing Stability Answer Date Recorded What is [...] Date Recorded Patient Health Questionnaire-2 Score 0 01/20/2025 Internet Access Answer Date Recorded Internet Access Q1 No 07/09/2024 Internet Access Q2 I do not want or need it 06/12 Sex and Gender Information Value Date Recorded Sex Assigned at Male 01/10/2022 10:15 AM EDT Legal Sex Male 10:15 AM EDT Gender Identity Male 01/10/2022 10:15 AM EDT Sexual Orientation Straight 01/10/2022 10 :15 AM EDT documented as of this encounter Last Filed Vital Signs Vital Sign Reading Time Taken Comments Blood Pressure 130/58 01/20/2025 10:09 AM EST Pulse 62 01/20/2025 10:09 AM EST Temperature 36 C (96.8 F) 01/20/2025 10:09 AM EST Respiratory Rate 14 01/20/2025 10:09 AM EST Oxygen Saturation 96% 01/20/2025 10:09 AM EST Inhaled Oxygen Concentration - - Weight 75.3 kg (166 lb) 01/20/2025 10:09 AM EST Height 160 cm (5' 3 ) 01/20/2025 10:09 AM EST Body Mass Index 29.41 01/20/2025 10:09 AM EST documented in this encounter Functional Status * Over the past 2 weeks, how often have you been bothered by any of the following problems? Question Answer Date of Assessment Author Patient Health Questionnaire -2 Score 0 01/20/2025 10:09 AM EST Oscar Liriano MA * Little interest or pleasure in doing things Answer Date of Assessment Author Not at all 01/20/2025 10:09 AM EST Ester Liriano MA * Feeling down, depressed, or hopeless Answer Date of Assessment Author Not at all 01/20/2025 10:09 AM EST Ester Liriano MA * Trouble falling or staying asleep, or sleeping too much Answer Date of Assessment Author Not at all 01/20/2025 10:09 AM Ester Martinez MA * Feeling tired or having little energy Answer Date of Assessment Author Not at all 01/20/2025 10:09 AM Ester Martinez MA * Poor appetite or overeating Answer Date of Assessment Author Not at all 01/20/2025 10:09 AM Ester Martinez MA * Feeling bad about yourself - or that you are a failure or have let yourself or your family down Answer Date of Assessment Author Not at all 01/20/2025 10:09 AM Ester Martinez MA * Trouble concentrating on things, such as reading the newspaper or watching television Answer Date of Assessment Author Not at all 01/20/2025 10:09 AM Ester Martinez MA * Moving or speaking so slowly that other people could have noticed? Or the opposite - being so fidgety or restless that you have been moving around a lot more than usual. Answer Date of Assessment Author Not at all 01/20/2025 10:09 AM Ester Martinez MA * Thoughts that you would be better off or hurting yourself in some way Answer Date of Assessment Author Not at all 01/20/2025 10:09 AM Ester Martinez MA * Patient Health Questionnaire-9 Score Answer Date of Assessment Author 0 01/20/2025 10:09 AM Ester Martinez MA documented as of this encounter Miscellaneous Notes * Assessment & Plan Note - Hallie Mcclendon MD - 01/20/2025 5:41 AM ESTAssociated Problem(s): Heart failure with reduced ejection fraction (HCC) -Bilingual Interpreter: HFCCA, last seen in July 2023 -nuclear stress test in June 2021 which was not diagnostic for ischemia -09/08/21 TTE Moderate global hypokinesis. LVEF 30-35%. Moderate aortic regurgitation. -07/05/22 Echocardiogram results showed EF 25-30%. LV size and wall thickness are normal. Mid to distal, anterior, anteroseptal, and apical espino are akinetic. Mild aortic regurgitation. -07/04/23 echocardiogram: Mod global hypokynesis. [id number]%. Mild-to-mod aortic regurgitation. No . Mild thickening of anterior and posterior mitral valve leaflets. No pulmonary hypertension. -current medications: Entresto 49 mg-51 mg BID, aspirin 81 mg daily; metoprolol succinate 25 mg daily; furosemide 20 mg daily - Patient was evaluated for ICD / BiV Devices. Currently still being an option, but not urgent per materials development engineer. Reassess in 6 mo follow up and 12-mo TTE per materials development engineer. - Continuing optimizing risk factor management, medication adherence, and working on lifestyle modifications - Psychiatric medications cause prolonged QT. Monitor closely. documented in this encounter Plan of Treatment Not on file documented as of this encounter Visit Diagnoses Diagnosis Heart failure with reduced ejection fraction (HCC)- Primary Encounter for immunization Encounter for vaccination documented in this encounter Additional Health Concerns Assessment Noted Time PHQ-9 Depression Total Score: 0 01/21/20 25 10:09 AM EST documented as of this encounter Care Teams Mri Specialist Relationship Specialty Start Date End Date Hallie Mcclendon MD [address] [place] [id number] PCP - General Family Medicine 03/13/18 [facility] 07/05/19 documented as of this encounter
--- NOTE | 2025-01-21 10:05 | A.OFFVIS_ITS ---
Intake Visit Reasons: 1M/PASMA Intake Note: patient presents today for:1 mo follow up urology medications: VIT-C , Finasteride, Tamsulosin blood thinners: none Imaging: PET CT 01/16/25 LAST PSA: 48mls Drug And Alcohol Counselor Required: Yes Accompanied by: Health Care Proxy Allergies No Known Allergies Allergy (Verified 01/21/25 10:13) HPI Comments Details: Joseph is a pleasant male. He is a patient of Dr. Simpson. He is seen for the following urologic conditions - BPH - elevated PSA Upper Sorbian translation provided in office by qualified manager medical affairs PSA 12/05 64 PSMA PET - left apical area enhancement, gopal disease with small positive nodes. Discussed findings with unwell and his granddaughter Plan for repeat biopsy Start Bicalutamide Lower urinary tract symptoms Longstanding Primary complaint is nocturia with high elevated residual Responded well to tamsulosin and finasteride PSA - 05/01 6.0, 05/03 8.6, 05/04 11, 04/05 21, 11/03 16, 06/04 31 Prior biopsy performed for PSA 8 which was negative 2016 chronic inflammation - 09/02 MRI targeted biopsy - MAHESH no cancer Imaging 07/02 MRI - 120 gm prostate - 1 cm left lateral posterior PI-RADS 4 lesion [facility] Medical History (Updated 01/23/24 @ 07:43 by Krystyna Christianson RN) Schizophrenia Hiatal hernia Opioid dependence, uncomplicated Tobacco use disorder Lung nodules COPD (chronic obstructive pulmonary disease) Undifferentiated schizophrenia Transient alteration of awareness ST segment depression Dizziness Memory impairment Chronic anemia Substance abuse Gallstones Smoker Depression Gastritis Esophagitis Asthma GERD (gastroesophageal reflux disease) HTN (hypertension) Surgical History History of esophagogastroduodenoscopy (EGD) Hx of colonoscopy History of prostate biopsy Family History Father No problems noted. Mother No problems noted. 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 Housing: House Are you a primary adult caregiver to a significant other at home: No Do you presently have visiting nurse or other home services: No Alcohol intake: never Patient Tobacco Use Status: Never used Tobacco Tobacco use type: Cigarette Cigarettes Per Day: 4 Second Hand Smoke Exposure: No Substance Use Type: Heroin service: No Current occupational status: unemployed and disabled Review of Systems Const Denies chills and Denies fever(s) Card Reports no additional complaints and Denies syncope Resp Denies cough GI Denies abdominal pain and Denies heartburn Reports as per HPI and Denies change in libido Neuro Denies syncope Psych Denies change in libido Endo Denies change in libido Physical Exam Const General: cooperative, healthy appearing, comfortable and no acute distress Orientation/consciousness: patient oriented x3 HEENT Face and sinus: Yes normal facial exam Mouth: moist mucous membranes Neck Neck: Yes normal visual inspection, Yes full ROM and Yes trachea midline Chest Chest palpation & inspection: normal inspection of the chest Resp Effort & Inspection: normal respiratory effort, able to speak in complete sentences and no respiratory distress GI Inspection: Yes normal to inspection Back/Spine/Pelvis Cervical Spine: normal cervical lordosis Thoracic/Lumbar Spine: thoracic and lumbar spine normal to inspection Skin General skin exam: no rashes or lesions noted Neuro General: patient oriented x3, gait normal, tone normal and moves all extremities Extrem General: Yes normal to inspection and Yes capillary refill normal Assessment & Plan Assessment & Plan (1) Elevated PSA: Comment: Prior biopsy for PSA 8 NAD Code(s): R97.20 - Elevated prostate specific antigen [PSA] Category: Medical Plan Risks and benefits regarding trans rectal ultrasound with prostate biopsy were discussed. Options of continued surveillance, no treatment and biopsy were offered. The risks include but are not limited to, urinary tract infection, sepsis, difficulty urinating, bleeding into the rectum or bladder that requires intervention and transfusion,and failure to diagnose prostate cancer. The patient understands the options and the risks involved. They wish to proceed. Printed information was provided to ensure he remains off anticoagulation for the appropriate length of time. He may require cardiology or PCP clearance. An antibiotic will be administered prior to, and following the procedure Medications: New levofloxacin take 1 tablet day before procedure, 1 tablet day of procedure and 1 tablet day after procedure 500 mg PO DAILY 3 tabs 0RF 3 days R97.20 - Elevated prostate specific antigen [PSA] Patient Instructions: This note is constructed using voice recognition software. While every effort has been made to ensure accuracy shape carver errors may have been included. Imaging studies, laboratory and physical exam results were discussed and reviewed in detail. No major barriers to patient understanding were identified. An opportunity to ask questions regarding the treatment plan was provided. All questions were answered. The patient expressed understanding and agreement with the above treatment plan. The patient is aware they should contact our office by phone for worsening of their current condition or the appearance of new urologic symptoms. Compliance is encouraged with any medications and followup testing that is ordered. It is a privilege to participate in the urologic care of your patient. If you have any questions or concerns regarding treatment for the above conditions, or other urologic issues, please do not hesitate to contact me. The office telephone contact is [phone]. Sincerely, Dr Stevie Molina MD, [facility] - Urology Compassionate Specialist Care for the Genitourinary System Coding Level of Care Code Est Pt Level 3 (03068) Complex EM visit Add On G2211 Diagnoses Elevated PSA R97.20
--- OUTSIDE RECORDS SUMMARY | 2025-01-21 10:58 | XMS_ITS | Encounter Summary ---
Author Organization [employer] Address [address] [facility] 7t [place] [address] Care Team Providers Care Spinning Machine Operator Name Role Phone Hallie Mcclendon MD Primary Care Provider [phone] Reason for Visit * Reason Onset Date Comments Med Refill 08/12/2024 Encounter Details Date Type Department Care Team ([facility] st Contact Info) Description 08/12/2024 Telephone [facility] MED[facility]INE [address] [place], [place] [phone] Hallie Mcclendon MD [address] [place], [place] [phone] Med Refill Social History Tobacco Use Types [...] 10:26 AM EDT Medication was sent to [facility] on 07/30/24 #90 with 3 refills. * Telephone Encounter - Wally Garcia - 08/12/2024 10:14 AM EDT TC from pt requesting medication refill. Medications needing refill: omeprazole (PriLOSEC) [address] capsule Multiple Vitamin (Multivitamin) tablet To be sent to: [facility] - [place], [place] - [address] [place] [address] documented in this encounter Plan of Treatment Not on file documented as of this encounter Visit Diagnoses Not on filedocumented in this encounter Additional Health Concerns Assessment Noted Time PHQ-9 Depression Total Score: 0 11/20/19 24 9:22 AM EDT documented as of this encounter Care Teams Spinning Machine Operator Relationship Specialty Start Date End Date Hallie Mcclendon MD [address] [facility] [place] [address] PCP - General Family Medicine 03/13/18 [facility] 07/05/19 documented as of this encounter
--- OUTSIDE RECORDS SUMMARY | 2025-01-21 10:59 | XMS_ITS | Encounter Summary ---
Author Organization [employer] Address [address] [facility] 7t [place] [address] Care Team Providers Care Territory Outside Sales Manager Name Role Phone Hallie Mcclendon MD Primary Care Provider [phone] Reason for Visit * Reason Onset Date Comments FYI 09/26/2024 Encounter Details Date Type Department Care Team ([facility] st Contact Info) Description 09/26/2024 Telephone [facility] [address] [place], [place] [phone] Hallie Mcclendon MD [address] [place], [place] [phone] FYI Social History Tobacco Use Types Packs/Day [...] documented as of this encounter Care Teams Territory Outside Sales Manager Relationship Specialty Start Date End Date Hallie Mcclendon MD [address] [place] [id number] PCP - General Family Medicine 03/13/18 [facility] 07/05/19 documented as of this encounter
--- OUTSIDE RECORDS SUMMARY | 2025-01-21 10:59 | XMS_ITS | Encounter Summary ---
Author Organization [employer] Address [address] [facility] 7t [place] [address] Care Team Providers Care Wharf Attendant Name Role Phone Hallie Mcclendon MD Primary Care Provider [phone] Reason for Visit * Reason Onset Date Comments Record Request 01/20/2025 Encounter Details Date Type Department Care Team ([facility] st Contact Info) Description 01/20/2025 Telephone [facility] MEDICINE [address] [place], [place] [phone] Hallie Mcclendon MD [address] [place], [place] [phone] Record Request Social History Tobacco Use Types Packs/Day [...] AM EDT documented as of this encounter Functional Status * Over the past 2 weeks, how often have you been bothered by any of the following problems? Question Answer Date of Assessment Author Patient Health Questionnaire -2 Score 0 01/20/2025 10:09 AM Oscar Martinez MA * Little interest or pleasure in doing things Answer Date of Assessment Author Not at all 01/20/2025 10:09 AM Ester Martinez MA * Feeling down, depressed, or hopeless Answer Date of Assessment Author Not at all 01/20/2025 10:09 AM Ester Martinez MA * Trouble falling or staying asleep, [...] encounter Miscellaneous Notes * Telephone Encounter - Violetta Dawson MA - 01/20/2025 1:34 PM EST Juan is requesting last notes from Advance Agent. documented in this encounter Plan of Treatment Not on file documented as of this encounter Visit Diagnoses Not on filedocumented in this encounter Additional Health Concerns Assessment Noted Time PHQ-9 Depression Total Score: 0 01/21/20 25 10:09 AM EST documented as of this encounter Care Teams Wharf Attendant Relationship Specialty Start Date End Date Hallie Mcclendon MD [address] [place] [address] PCP - General Family Medicine 03/13/18 [facility] 07/05/19 documented as of this encounter
--- OUTSIDE RECORDS SUMMARY | 2025-01-21 10:59 | XMS_ITS | Encounter Summary ---
Author Organization [employer] Address [address] [facility] 7t [place] [address] Care Team Providers Care Home Health Care Provider Name Role Phone Hallie Mcclendon MD Primary Care Provider [phone] Reason for Referral * Consultation (Routine) - Canceled Specialty Diagnoses / Procedures Referred By Mya t Referred To Contact Pharmacy Diagnoses Hospital discharge follow-up Hallie Mcclendon MD [address] [place] [address] Phone: tel: fax: Referral ID Status Reason Start Date Expiration Date V isits Requested Visits Authorized [id number] Canceled Continuity of Care 07/10/2024 07/10/2025 6 6 Reason for Visit * Reason Onset Date Comments Call Back Request 07/10/2024 Encounter Details Date Type Department Care Team ([facility] st Contact Info) Description 07/10/2024 Telephone [facility] MEDICINE [address] [place], [place] [phone] Hallie Mcclendon MD [address] [place], [place] [phone] Call Back Request Social History Tobacco Use [...] month with the last one being at [facility], discharged on 07/09/2024. Pt was seen for [...] - 07/10/2024 11:19 AM EDT TC from [place] with [facility] requesting a call back regarding pt medication. Contact Jenae at [phone] documented in this encounter Plan of Treatment Scheduled Referrals Name Type Priority Associated Diagnoses [...] of this encounter Care Teams Home Health Care Provider Relationship Specialty Start Date End Date Hallie Mcclendon MD [address] [place] [id number] PCP - General Family Medicine 03/13/18 [facility] 07/05/19 documented as of this encounter
--- OUTSIDE RECORDS SUMMARY | 2025-01-21 10:59 | XMS_ITS | Encounter Summary ---
Author Organization [employer] Address [address] [facility] 7t [place] [address] Care Team Providers Care Leach Tank Tender Name Role Phone Hallie Mcclendon MD Primary Care Provider [phone] Reason for Visit * Reason Onset Date Comments chartprep 01/17/2025 Encounter Details Date Type Department Care Team ([facility] Contact Info) Description 01/17/2025 Telephone [facility] MEDICINE [address] [place], [place] [phone] Hallie Mcclendon MD [address] [place], [place] [phone] chartprep Social History Tobacco Use Types Packs/Day Years [...] Telephone Encounter - Violetta Dawson MA - 01/17/2025 1:11 PM EST ..Chart Prep Labs: done Images: not applicable Vaccines due: Covid Due and Flu Due Referrals: Not Applicable Screenings: Not Applicable Overdue care gaps: PHQ9 documented in this encounter Plan of Treatment Not on file documented as of this encounter Visit Diagnoses Not on filedocumented in this encounter Additional Health Concerns Assessment Noted Time PHQ-9 Depression Total Score: 0 11/20/19 24 9:22 AM EDT documented as of this encounter Care Teams Leach Tank Tender Relationship Specialty Start Date End Date Hallie Mcclendon MD [address] [place] [address] PCP - General Family Medicine 03/13/18 [facility] 07/05/19 documented as of this encounter
--- OUTSIDE RECORDS SUMMARY | 2025-01-21 10:59 | XMS_ITS | Encounter Summary ---
Author Organization [email or web address] Address [address] [facility] 7t [place] [address] Care Team Providers Care Hide And Skin Processing Worker Name Role Phone Hallie Mcclendon MD Primary Care Provider [phone] Encounter Details Date Type Department Care Team ([facility] st Contact Info) Description 04/05/2024 Orders Only [facility] MEDICINE [address] [place] [address] Hallie Mcclendon MD [address] [place] [address] Social History Tobacco Use Types Packs/Day Years [...] documented as of this encounter Care Teams Hide And Skin Processing Worker Relationship Specialty Start Date End Date Hallie Mcclendon MD [address] [place] [address] PCP - General Family Medicine 03/13/18 [facility] 07/05/19 documented as of this encounter
--- OUTSIDE RECORDS SUMMARY | 2025-01-21 10:59 | XMS_ITS | Encounter Summary ---
Author Organization [employer] Address [address] [facility] 7t [place] [address] Care Team Providers Care Roller Picker Name Role Phone Hallie Mcclendon MD Primary Care Provider [phone] Encounter Details Date Type Department Care Team ([facility] st Contact Info) Description 04/27/2023 Orders Only [facility] MEDICINE [address] [place] [address] Hallie Mcclendon MD [address] [place] [address] Social History Tobacco Use Types Packs/Day Years [...] filedocumented in this encounter Care Teams Roller Picker Relationship Specialty Start Date End Date Hallie Mcclendon MD [address] [place] [id number] PCP - General Family Medicine 03/13/18 [facility] 07/05/19 documented as of this encounter
--- OUTSIDE RECORDS SUMMARY | 2025-01-21 10:59 | XMS_ITS | Encounter Summary ---
Author Organization [employer] Address [address] [facility] 7t [place] [address] Care Team Providers Care Collaborative Physician Name Role Phone Hallie Mcclendon MD Primary Care Provider [phone] Reason for Visit * Reason Onset Date Comments Med Refill 09/15/2023 Encounter Details Date Type Department Care Team ([facility] st Contact Info) Description 09/15/2023 Telephone [facility] MED[facility] [address] [place], [place] [phone] Hallie Mcclendon MD [address] [place], [place] [phone] Med Refill Social History Tobacco Use Types [...] 1000MG capsule capsule To be sent to: [facility] - [place], [place] - [address] [place] [address] documented in this encounter Plan of Treatment Not on file documented as of this encounter Visit Diagnoses Not on filedocumented in this encounter Additional Health Concerns Assessment Noted Time PHQ-9 Depression Total Score: 0 08/09/19 24 9:27 AM EDT documented as of this encounter Care Teams Collaborative Physician Relationship Specialty Start Date End Date Hallie Mcclendon MD 230 [facility] [place] [address] PCP - General Family Medicine 03/13/18 [facility] 07/05/19 documented as of this encounter
--- OUTSIDE RECORDS SUMMARY | 2025-01-21 10:59 | XMS_ITS | Encounter Summary ---
Author Organization [employer] Address [address] [facility] 7t [place] [address] Care Team Providers Care Suction Dredge Dumping Supervisor Name Role Phone Hallie Mcclendon MD Primary Care Provider [phone] Reason for Referral * Consultation (Urgent) - Closed Specialty Diagnoses / Procedures Referred By Mya t Referred To Contact Orthopaedic Surgery Diagnoses Left forearm pain Fall, subsequent encounter Hallie Mcclendon MD [address] [place] [address] Phone: tel: fax: [facility] Orthopedics [address] [place] [address] Phone: tel: Referral ID Status Reason Start Date Expiration Date V isits Requested Visits Authorized [id number] Closed Specialty Services Required 09/22/2023 09/21/2024 1 1 Encounter Details Date Type Department Care Team (Late st Contact Info) Description 09/22/2023 Orders Only [facility] MEDICINE [address] [place], [place] [phone] Hallie Mcclendon MD [address] [place], [place] [phone] Left forearm pain (Primary Dx); Fall, subsequent [...] as of this encounter Plan of Treatment Scheduled Referrals [...] documented as of this encounter Care Teams Suction Dredge Dumping Supervisor Relationship Specialty Start Date End Date Hallie Mcclendon MD [address] [place] [address] PCP - General Family Medicine 03/13/18 [facility] 07/05/19 documented as of this encounter
--- OUTSIDE RECORDS SUMMARY | 2025-01-21 10:59 | XMS_ITS | Encounter Summary ---
Author Organization [employer] Address [address] [facility] [address] [place] [address] Care Team Providers Care Tape Recorder Mechanic Name Role Phone Hallie Mcclendon MD Primary Care Provider [phone] Encounter Details Date Type Department Care Team (Late st Contact Info) Description 12/09/2022 Orders Only [facility] MEDICINE [address] [place] [address] Hallie Mcclendon MD [address] [place] [address] Hematemesis, unspecified whether nausea present (Primary Dx); [...] on file documented as of this encounter Procedures Procedure [...] B12 >2,000(H ) 200 - 900 pg/mL [facility] Comment:NORMAL 200-900 PG/ML INDETERMINATE 160-199 PG/ML DEFICIENT < 160 PG/ML Folate 10.6 > or = 4.0 ng/mL [facility] Comment:Reference Values:> o r = 4.0 ng/mL< 4.0 ng/mL suggests folate deficiency Methotrexate, aminopterin and folinic acid(leucovorin) are chemotherapeutic agents whose molecularstructures are similar to folate; therefore, the Architectfolate assay cannot be used for patients using these drugs. 12/13/2022 10:0 7 AM EDT 12/13/2022 10:07 AM EDT Hallie Mcclendon MD LAB BLOOD ORDERABLES Final Resul t Performing Organization Address [facility] Co de Phone Number [facility] [address] [place] [phone] * (ABNORMAL) Iron And Total Iron Binding Capacity (12/13/2022 10:07 AM EDT) Iron 131 45 - 160 mcg/dL [facility] Total Iron Binding Capacity 251 228 - 428 mcg/dL [facility] Percent Iron Saturation 52(H) 15 - 50 % [facility] Unsaturated Iron Binding 120 ug/dL [facility] Blood Venous blood specimen / Unknown 12/13/2022 10:07 AM EDT 12/13/2022 10:07 AM EDT us Hallie Mcclendon MD LAB BLOOD ORDERABLES Final Resul t Performing Organization Address [facility] Co de Phone Number [facility] [address] [place] [phone] * (ABNORMAL) Ferritin (12/13/2022 10:07 AM EDT) Ferritin 506(H) 20 - 250 ng/mL [facility] Blood Venous blood specimen / Unknown 12/13/2022 10:07 AM EDT 12/13/2022 10:07 AM EDT Hallie Mcclendon MD LAB BLOOD ORDERABLES Final Resul t Performing Organization Address [facility] Co de Phone Number [facility] [address] [place] [phone] * T4, Free (12/13/2022 10:07 AM EDT) Free T4 (Free Thyroxine) 0.90 0.71 - 1.85 ng/dL [facility] Blood Venous blood specimen / Unknown 12/13/2022 10:07 AM EDT 12/13/2022 10:07 AM EDT Hallei Mcclendon MD LAB BLOOD ORDERABLES Final Resul t Performing Organization Address [facility]/ZIP Co de Phone Number [facility] [address] [place] [phone] * TSH (12/13/2022 10:07 AM EDT) Thyroid Stimulating Hormone 2.54 0.32 - 4.0 uIU/mL [facility] Comment:TSH 3rd Generation ( [facility]) Blood Venous blood specimen / Unknown 12/13/2022 10:07 AM EDT 12/13/2022 10:07 AM EDT Hallie Mcclendon MD LAB BLOOD ORDERABLES Final Resul t Performing Organization Address [facility]/ZIP Co de Phone Number [facility] [address] [place] [address] [phone] * Hemoglobin A1c (12/13/2022 10:07 AM EDT) Hemoglobin A1c 5.7 <6.0 % [facility] Comment:Hemoglobin A1C Refer ence Range Adults: 4.8 - 6.0 % Non diabetic: < 6.0 % Goal: < 7.0 %Additional Action Suggested: > 8.0 %Note: Hemoglobin A1c results are invalid for patients with abnormal amounts of HbF. Blood transfusions may impact the HbA1c concentration in the patient sample. Estimated Average Glucose 117 mg/dL [facility] Comment:eAG = Estimated ave rage glucose which is %A1C expressed asaverage glucose, using the formula of the [id number] Glucose study (ADAG), Diabetes Care, Vol.31,#8,Oct. 2007 Blood Venous blood specimen / Unknown 12/13/2022 10:07 AM EDT 12/13/2022 10:07 AM EDT us Hallie Mcclendon MD LAB BLOOD ORDERABLES Final Resul t [facility] [address] [place] [phone] * (ABNORMAL) Comprehensive Metabolic Panel (12/13/2022 10:07 AM EDT) Sodium 139 135 - 145 mmol/L [facility] Potassium 3.8 3.3 - 5.1 mmol/L [facility] Chloride 106 96 - 108 mmol/L [facility] Carbon Dioxide 24 22 - 29 mmol/L [facility] Anion Gap 13 12 - 20 [facility] Urea Nitrogen (BUN) 21(H) 9 - 16 mg/dL [facility] Creatinine, Serum 1.06 0.5 - 1.4 mg/dL [facility] Estimated Glomerular Filt Rate >60 [facility] Comment:NOTE: For -Am erican individuals, multiply the result by 1.210.Chronic Kidney Disease: Estimated GFR < 60 mL/min/1.51s5Cqruwp Kidney Disease: Estimated GFR < 15 mL/min/1.73m2 Glucose 104 60 - 115 mg/dL [facility] Calcium 10.3(H) 8.4 - 10.2 mg/dL [facility] Bilirubin, Total 0.5 0.0 - 1.0 mg/dL [facility] Aspartate Amino Transferase 25 5 - 37 U/L [facility] Alanine Aminotransferase 24 0 - 40 U/L [facility] Total Protein 7.6 6.5 - 8.0 g/dL [facility] Albumin Level 4.3 3.5 - 5.0 g/dL [facility] Alkaline Phosphatase 88 39 - 117 U/L [facility] Blood Venous blood specimen / Unknown 12/13/2022 10:07 AM EDT 12/13/2022 10:07 AM EDT us Hallie Mcclendon MD LAB BLOOD ORDERABLES Final Resul t [facility] [address] [place], [place] [phone] * (ABNORMAL) CBC auto differential (12/13/2022 10:07 AM EDT) White Blood Count 8.1 4.8 - 10.8 X10*3/uL [facility] Red Blood Count 5.15 4.60 - 5.80 X10*6/uL [facility] Hemoglobin 15.5 14.0 - 18.0 g/dl [facility] Hematocrit 45.7 42.0 - 52.0 % [facility] Mean Corpuscular Volume 88.7 80.0 - 98.0 fL [facility] Mean Corpuscular Hemoglobin 30.1 27.0 - 33.0 pg [facility] Mean Corpuscular HGB Conc 33.9 31.0 - 36.0 g/dl [facility] Red Cell Distribution Width 12.7 11.0 - 16.0 % [facility] Platelet Count 182 160 - 400 X10*3/uL [facility] Mean Platelet Volume 10.5 9.4 - 12.4 fL [facility] Neutrophils Percent Auto 55.1 45 - 73 % [facility] Imm Gran Pct Auto 0.2 0.0 - 0.4 % [facility] Lymphocytes Percent Auto 30.2 20 - 40 % [facility] Monocytes Percent Auto 6.5 2 - 11 % [facility] Eosinophils Percent Auto 7.5(H) 0 - 4 % [facility] Basophils Percent Auto 0.5 0 - 2 % [facility] NRBC Pct Auto 0.0 0.0 - 0.2 /100WBC [facility] Neutrophils Absolute Auto 4.5 2.0 - 8.3 x10*3/uL [facility] Imm Gran Abs Auto 0.02 0.00 - 0.03 X10*3/uL [facility] Lymphocytes Absolute Auto 2.5 1.2 - 4.9 X10*3/uL [facility] Monocytes Absolute Auto 0.5 0.1 - 1.2 X10*3/uL [facility] Eosinophils Absolute Auto 0.6(H) 0.0 - 0.4 X10*3/uL [facility] Basophils Absolute Auto 0.0 0.0 - 0.2 X10*3/uL [facility] NRBC Abs Auto 0.000 0.0 - 0.012 X10*3/uL [facility] Blood Venous blood specimen / Unknown 12/13/2022 10:07 AM EDT 12/13/2022 10:07 AM EDT Hallie Mcclendon MD LAB BLOOD ORDERABLES Final Resul t Performing Organization Address [facility]/ZIP Co de Phone Number [facility] [address] [place] [phone] * B Type Natriuretic Peptide (BNP) (12/13/2022 10:07 AM EDT) B Type Natriuretic Peptide <10 <100 pg/mL [facility] Comment:For those patients w ho are being treated with Natrecor(nesiritide, recombinant BNP), BNP testing should beperformed at least two hours post treatment in order toensure that only endogenous levels of BNP are detected. Blood Venous blood specimen / Unknown 12/13/2022 10:07 AM EDT 12/13/2022 10:07 AM EDT Hallie Mcclendon MD LAB BLOOD ORDERABLES Final Resul t Performing Organization Address [facility]/ZIP Co de Phone Number [facility] [address] [place] [phone] documented in this encounter Visit Diagnoses Diagnosis Hematemesis, unspecified whether nausea present- Primary Heart failure with reduced ejection fraction (HCC) Dyslipidemia Other and unspecified hyperlipidemia Elevated TSH Other abnormal blood chemistry Class 1 obesity due to excess calories with serious comorbidity and body mass index (BMI) of 31.0 to 31.9 in adult documented in this encounter Care Teams Tape Recorder Mechanic Relationship Specialty Start Date End Date Hallie Mcclendon MD [address] [place] [address] PCP - General Family Medicine 03/13/18 [facility] 07/05/19 documented as of this encounter
--- OUTSIDE RECORDS SUMMARY | 2025-01-21 10:59 | XMS_ITS | Encounter Summary ---
Author Organization [employer] Address [address] [facility] [address] [place] [address] Care Team Providers Care Stitcher Standard Machine Name Role Phone Hallie Mcclendon MD Primary Care Provider [phone] Encounter Details Date Type Department Care Team (Latest Contact Info) Description 01/20/2025 Travel Social History Tobacco Use Types Packs/Day Years [...] [place] documented as of this encounter Plan of Treatment Not on file documented as of this encounter Visit Diagnoses Not on filedocumented in this encounter Additional Health Concerns Assessment Noted Time PHQ-9 Depression Total Score: 0 01/21/20 25 10:09 AM EST documented as of this encounter Care Teams Stitcher Standard Machine Relationship Specialty Start Date End Date Hallie Mcclendon MD [address] [place] [address] PCP - General Family Medicine 03/13/18 [facility] 07/05/19 documented as of this encounter
--- OUTSIDE RECORDS SUMMARY | 2025-01-21 10:59 | XMS_ITS | Encounter Summary ---
Author Organization [employer] Address [address] [facility] [address] [place] [address] Care Team Providers Care Director Print Name Role Phone Hallie Mcclendon MD Primary Care Provider [phone] Reason for Visit * Reason Onset Date Comments FYI 12/19/2024 Encounter Details Date Type Department Care Team ([facility] st Contact Info) Description 12/19/2024 Telephone [facility] MEDICINE [address] [place], [place] [phone] Hallie Mcclendon MD [address] [place], [place] [phone] FYI Social History Tobacco Use Types Packs/Day [...] * Telephone Encounter - Gumaro Warner - 12/19/2024 12:39 PM EDT Tc from [place] with [facility] wanted to report that when visited pt yesterday his B/P was 87/58 with a heart rate of 105. Wanted to inform pcp that linsey held metoprolol yesterday . Pt is A-symptomatic documented in this encounter Plan of Treatment Not on file documented as of this encounter Visit Diagnoses Not on filedocumented in this encounter Additional Health Concerns Assessment Noted Time PHQ-9 Depression Total Score: 0 11/20/19 24 9:22 AM EDT documented as of this encounter Care Teams Director Print Relationship Specialty Start Date End Date Hallie Mcclendon MD [address] [place] [address] PCP - General Family Medicine 03/13/18 [facility] 07/05/19 documented as of this encounter
--- OUTSIDE RECORDS SUMMARY | 2025-01-21 10:59 | XMS_ITS | Data Portability ---
Author Organization [employer] [facility], [employer] [facility] Address [address] [place] [phone] Care Team Providers Care Numerical Control Programmer Name Role Phone HIM CCA OTHER Unavailable OTHER ELIAN CHAVIRA Primary Care Provider Assessment Encounter Date Assessment Date Assessment LastModified [...] Assessment and Plan as documented by the Coal Pipeline Operator. We discussed the diagnostic uncertainty of home visits and the risk associated with this. In this case I felt this to be an acceptable and reasonable amount of risk given the benefit of avoiding an ED visit. The patient given the opportunity to ask questions via Maori language line wharf laborer.. Advised if develops severe pain in the hand/ LUE/ if it becomes red / hot or cold blue or numb// hi fever advised to get rechecked immediately in the emergency department- he verbalized understanding of instructions to the medic via wharf laborer Not available 01/01/2024 12:52:50 Plan of Treatment Reminders Order Date Submit Date Provider Last Modified By Organization Details Last Modified Time Details Appointments None recorded. Lab None recorded. Referral None recorded. Procedures None recorded. Surgeries None recorded. Imaging None recorded. Medication Orders acetaminoph en 500 mg tablet 2023 [email or web address] 0 Not available 13:22:31 acetaminoph en [address] [facility], [address] [place] [address], [phone], 15:34:02 Patient TargetsNo targets recorded. Patient InstructionsNo [...] oximetry Body temperature Heart rate Body weight Provider Name and Address Organization Details Last Updated DateTime 3 98.5 [degF] 99 % 99 % 82 /min 14 /min 23939.3 76 g 14 /min 99 % 99 % 98.5 [degF] 82 /min 95024.3 76 g Not Available [facility] [employer] 3 12:23:05 Date Recorded Systolic And Diastolic Systolic And Diastolic Provider Name and Address Organization Details Last Updated DateTime 06/02/2022 118/76 mm[Hg] 118/76 mm[Hg] Not Available [facility] 06/02/2022 12:23:06 Date Recorded Heart rate Body weight Respiratory rate Body temperature Body height Oxygen saturation Oxygen saturation in Arterial blood by Pulse oximetry Systolic And Diastolic Provider Name and Address Organization Details Last Updated DateTime 4 89 /min 64730.3 36 g 17 /min 98.2 [degF] 160.02 cm 96 % 96 % 114/82 mm[Hg] Not Available [facility] 12:55:59 Social History None recorded. Functional Status None recorded. Mental Status None recorded. Family History Nothing Reported. Medical History No medical history recorded. Past Encounters Encounter ID Performer Location Encounter Start Date Encounter Closed Date Diagnosis/Indication Diagnosis SNOMED-CT Code Diagnosis ICD10 Code Diagnosis IMO Codes Diagnosis Note [id number] Deshawn Stanton MD [facility] [address] [place] [address] [phone] 06/02/2022 12:06:33 06/06/2022 12:44:47 Strain of muscle of chest wall 377272956 S29.011A [id number] Joanne Smith MD Main - [facility] [address] [place] [address] [phone] 01/01/2024 12:33:37 01/02/2024 10:13:23 Contusion of left thumb [id number] S60.012A Advised to elevate/ advised ice / [...] Crawford Member ID Guarantor Name 10/15/2023 1 [facility] - DOS PRIOR TO 2022 - DUAL ELIGIBLE (MEDICARE REPLACEMENT/ADV ANTAGE - HMO) Joseph Hicks [id number] Joseph Hicks 01/16/2024 1 [facility] - DOS ON OR AFTER 2022 - DUAL ELIGIBLE - RESIDENTIAL OPTIONS AND ONE CARE (MEDICARE REPLACEMENT/ADV ANTAGE - HMO) Joseph Hicks [id number] Joseph Hicks Notes Date Note Type Note Provider Name and Address Organization Details Recorded Time 06/02/2022 text/html HPI: Spoke with member via Maori int #[id number] requesting [facility] visit for eval R sided upper back and chest area since yesterday s/p turned to take seatbelt off. No OTC's States pain resolved would just like it checked Deny SOB or N/V. Discuss if symptoms return/progress to seek emergent care call 911/-verbalize understanding. Verify member identity name/- .................... .................... .................... .................... .................... .................... .................... . Coal Pipeline Operator Note From Pedro Pablo Holland: Pt requested [...] .................... .................... .................... .................... . Disposition: Fulfilled Valmeek Kudesia, MD [address] [facility],[address], [place], [phone], [employer] 06/02/2022 18:07:45 01/01/2024 text/html ROS as noted in the HPI HPI: Patient with bruising and swelling to left thumb. No noted injury and skin intact with full ROM no significant pain. Etiology unknown. .................... .................... .................... .................... .................... .................... .................... . [facility] Nurse Triage Notes (Skye Vasquez): Chief Complaints: Edema PMH: Heart Disease, Hypertension, CHF, COPD/Asthma Comments: [facility] RN DID NOT NEED FURTHER INFO .................... .................... .................... .................... .................... .................... .................... . Coal Pipeline Operator Note From Mauricio Katz: [facility] makes pt contact 83 yo M CC of swelling to left thumb.[facility] obtains consent and uploads electronically. PT vitals obtained. [facility] uses interpretation services due to language barrier. PT explains he broke his left wrist roughly 4 months ago. PT awoke today with a swollen left thumb. PT denies pain, has full range of motion, not sensitive/painful to touch, sufficient capillary refill, appears like a bruise, mild swelling is noted. PT denies any medication allergies. PT medication is managed by [employer]rd [employer] party, box is locked. PT denies blood thinners or any recent traumas. [facility] contacts [facility] and uploads picture electronically. [facility] believes pt struck hand causing the injury and bruising, PT also has repetitive movement of rolling the thumb across the pointer finger with a closed fist which was witnessed throughout the call. [facility] orders 1gram of PO acetaminophen if pt wants it which he agrees too, PT also accepts a prescription of acetaminophen sent to his pharmacy at [facility]. PT is advised to use ice [...] then he may need imaging. PT understands [facility] clear. .................... .................... .................... .................... .................... .................... [...] to psychiatric meds Joanne Smith MD [address] [facility],[address], [place], [phone], [employer] 01/01/2024 14:47:58
--- OUTSIDE RECORDS SUMMARY | 2025-01-21 10:59 | XMS_ITS | Clinical Summary ---
Author Organization [employer] Address [address] [place] [address] [address] [place] [address] Care Team Providers Care Account Relationship Manager Name Role Phone Hallie Mcclendon MD Primary Care Provider [phone] Allergies No known active allergies Medications traZODone [...] l VITAMIN D (Vitamin D-3) 50 MCG (2000 UT) tabletIndicati ons:Vitamin deficiency TAKE 1 TABLET [...] FEVER 90 tablet 1 10/26/19 25 Active Ascorbic Acid (vitamin C) 250 MG tabletIndicati ons:Anemia, unspecified type TAKE 1 TABLET BY MOUTH EVERY MORNING 30 tablet 01/02/20 25 Active Ferrous Sulfate (iron) 325 (65 Fe) MG tabletIndicati ons:Anemia, unspecified type TAKE 1 TABLET BY MOUTH EVERY MORNING 30 tablet 01/02/20 Active magnesium oxide (Mag-Ox) 400 MG tabletIndicati ons:Hypomagnes emia Take 1 tablet (400 mg) by mouth every other day. 15 tablet 01/01/20 25 2024 Active Ferrous Sulfate (iron) 325 (65 Fe) MG tabletIndicati ons:Anemia, unspecified type TAKE 1 TABLET BY MOUTH DAILY IN THE MORNING 30 tablet 11/15/19 25 2024 Discontinued Ascorbic Acid (vitamin C) 250 MG tabletIndicati ons:Anemia, unspecified type TAKE 1 TABLET BY MOUTH DAILY IN THE MORNING 30 tablet 11/15/19 25 2024 Discontinued magnesium oxide (Mag-Ox) 400 MG tabletIndicati ons:Hypomagnes emia Take 1 tablet (400 mg) by mouth every other day. 15 tablet 12/04/19 25 2024 Discontinued(R eorder (will not trigger notification to Pharmacy)) Active Problems Problem Noted Date Diagnosed Date Aspiration pneumonia ([facility]) 08/01/2024 Assessment & Plan (08/01/2024 11:03 AM [...] (10/28/2024 5:35 PM EDT): - [facility] smoking 7 months ago Assessment & Plan (04/06/2024 6:43 AM EST): - [facility] 7 months [facility] Assessment & Plan (11/20/2023 10:12 AM EDT): - [facility] 4 months ago Assessment & Plan (08/11/2023 6:11 PM EDT): - [facility] Family history of colon cancer 08/04/2023 GERD (gastroesophageal reflux disease) History of sphincterotomy of sphincter of Oddi 0 08/04/2023 Sessile colonic polyp 08/04/2023 Assessment & Plan (11/20/2023 10:15 AM EDT): - seen by [facility], and is being scheduled for colonoscopy in September 2023 Assessment & Plan (08/11/2023 6:12 PM EDT): - seen by [facility], and is being scheduled for colonoscopy [...] and right lower lobe. -recently seen by speeder worker. Because there was no pulmonary nodule, surveillance [...] and right lower lobe. -recently seen by speeder worker. Because there was no pulmonary nodule, surveillance [...] and right lower lobe. -recently seen by speeder worker. Because there was no pulmonary nodule, surveillance [...] and right lower lobe. -recently seen by speeder worker. 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 LVEF 30-35%. Moderate aortic regurgitation. -07/05/22 Echocardiogram results showed EF 25-30%. LV size and wall thickness are normal. Mid to distal, anterior, anteroseptal, and apical espino are akinetic. Mild aortic regurgitation. -07/04/23 echocardiogram: Mod global hypokynesis. [id number]%. Mild-to-mod aortic regurgitation. No . Mild thickening of anterior and posterior mitral valve leaflets. No pulmonary hypertension. -current medications: Entresto 49 mg-51 mg BID, aspirin 81 mg daily; metoprolol succinate 25 mg daily; furosemide 20 mg daily - Patient was evaluated for ICD / BiV Devices. Currently still being an option, but not urgent per bull gang worker. Reassess in 6 mo follow up and 12-mo TTE per bull gang worker. - Continuing optimizing risk factor management, medication adherence, and working on lifestyle modifications - Psychiatric medications cause prolonged QT. Monitor closely. 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 LVEF 30-35%. Moderate aortic regurgitation. -07/05/22 Echocardiogram results showed EF 25-30%. LV size and wall thickness are normal. Mid to distal, anterior, anteroseptal, and apical espino are akinetic. Mild aortic regurgitation. -07/04/23 echocardiogram: Mod global hypokynesis. [id number]%. Mild-to-mod aortic regurgitation. No . Mild thickening of anterior and posterior mitral valve leaflets. No pulmonary hypertension. -current medications: Entresto 49 mg-51 mg BID, aspirin 81 mg daily; metoprolol succinate 25 mg daily; furosemide 20 mg daily - Patient was evaluated for ICD / BiV Devices. Currently still being an option, but not urgent per bull gang worker. Reassess in 6 mo follow up and 12-mo TTE per bull gang worker. - Continuing optimizing risk factor management, medication adherence, and working on lifestyle modifications - Psychiatric medications cause prolonged QT. Monitor closely. 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 LVEF 30-35%. Moderate aortic regurgitation. -07/05/22 Echocardiogram results showed EF 25-30%. LV size and wall thickness are normal. Mid to distal, anterior, anteroseptal, and apical espino are akinetic. Mild aortic regurgitation. -07/04/23 echocardiogram: Mod global hypokynesis. [id number]%. Mild-to-mod aortic regurgitation. No . Mild thickening of anterior and posterior mitral valve leaflets. No pulmonary hypertension. -current medications: Entresto 49 mg-51 mg BID, aspirin 81 mg daily; metoprolol succinate 25 mg daily; furosemide 20 mg daily - Patient was evaluated for ICD / BiV Devices. Currently still being an option, but not urgent per bull gang worker. Reassess in 6 mo follow up and 12-mo TTE per bull gang worker. - Continuing optimizing risk factor management, medication adherence, and working on lifestyle modifications - Psychiatric medications cause prolonged QT. Monitor closely. 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 -nuclear stress test in June 2021 which was not diagnostic for ischemia -09/08/21 TTE Moderate global hypokinesis. LVEF 30-35%. Moderate aortic regurgitation. -07/05/22 Echocardiogram results showed EF 25-30%. LV size and wall thickness are normal. Mid to distal, anterior, anteroseptal, and apical espino are akinetic. Mild aortic regurgitation. -07/04/23 echocardiogram: Mod global hypokynesis. [id number]%. Mild-to-mod aortic regurgitation. No . Mild thickening of anterior and posterior mitral valve leaflets. No pulmonary hypertension. -current medications: Entresto 49 mg-51 mg BID, aspirin 81 mg daily; metoprolol succinate 25 mg daily - Patient was evaluated for ICD / BiV Devices. Currently still being an option, but not urgent per bull gang worker. Reassess in 6 mo follow up and 12-mo TTE per bull gang worker. - Continuing optimizing risk factor management, medication adherence, and working on lifestyle modifications - Psychiatric medications cause prolonged QT. Monitor closely. 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 -nuclear stress [...] being an option, but not urgent per bull gang worker. Reassess in 6 mo follow up and 12-mo TTE per bull gang worker. - Continuing optimizing risk factor management, medication adherence, and working on lifestyle modifications - Psychiatric medications cause prolonged QT. Monitor closely. 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 -nuclear stress [...] being an option, but not urgent per bull gang worker. Reassess in 6 mo follow up and 12-mo TTE per bull gang worker. - Continuing optimizing risk factor management, medication adherence, and working on lifestyle modifications - Psychiatric medications cause prolonged QT. Monitor closely. 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 -nuclear stress [...] being an option, but not urgent per bull gang worker. Reassess in 6 mo follow up and 12-mo TTE per bull gang worker. 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 Referred for biventricular device placement evaluation. Pt declined ICD or BiV devices. Continuing medical management with Entresto. -nuclear stress test in June 2021 which was not diagnostic for ischemia -due to his low EF, pacemaker may be indicated -follow-up with bull gang worker as scheduled -continue working on lifestyle modifications [...] Plan (04/06/2024 6:49 AM EST): -followed by UrologistDr. Molina for PSA/BPH, last seen in Dec [...] Plan (11/20/2023 10:23 AM EDT): -followed by UrologistDr. Molina for [...] use; tobacco use; age - DEXA in 2011 showed osteoporosis, but patient did not start [...] - Consider intensifying statin therapy and/or changing [place] 3 to icosapent ethyl. Assessment & Plan [...] Plan (04/06/2024 7:06 AM EST): -followed by psychiatristDr. Vazquez at [facility] -continue Trazodone, Sertaline and Quetiapine with caution (DDI ? prolonged OTc) - continue animal therapy with dog / gut snatcher animal Assessment & Plan (11/20/2023 10:26 AM EDT): -followed by psychiatristDr. Vazquez at [facility] -continue Trazodone, Seroquel and Quetiapine with caution (DDI ? prolonged OTc) -requested psychiatrist to review and adjust medications if possible due to his heart failure. Assessment & Plan (08/05/2022 10:20 AM EDT): -followed by psychiatristDr. Vazquez at [facility] -continue Trazodone, Seroquel and Quetiapine with caution (DDI ? prolonged OTc) -requested psychiatrist to review and adjust medications if possible due to his heart failure. Assessment & Plan (04/21/2022 9:30 AM EST): -followed by psychiatrist, Dr. Vazquez at [facility] -continue Trazodone, Seroquel and Quetiapine with caution (DDI ? prolonged OTc) -requested psychiatrist to review and adjust medications if possible due to his heart failure. 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 Bocanegra in Feb 2024 -Last exacerbation in Nov 2022. Prescribed Augmentin by speeder worker. -exacerbation frequency 4 times per year -Hx intubation, mainly for overdose (opioid and BZD) -PFT 03/25/20 Bronchial asthma -continue Fluticasone / umeclidinium / vilanterol as directed -continue theophylline as prescribed -Proper mouth care discussed again -Continue albuterol HFA and nebulizer prn as rescue -Continue smoking cessation effort and maintaining abstinence Assessment & Plan (04/06/2024 6:46 AM EST): -followed by [facility] speeder worker, last seen by Dr. Bocanegra in Feb 2024 -Last exacerbation in Nov 2022. Prescribed Augmentin by speeder worker. -exacerbation frequency 4 times per year -Hx intubation, mainly for overdose (opioid and BZD) -PFT 03/25/20 Bronchial asthma -continue Fluticasone / umeclidinium / vilanterol as directed -continue theophylline as prescribed -Proper mouth care discussed again -Continue albuterol HFA and nebulizer prn as rescue -Continue smoking cessation effort and maintaining abstinence Assessment & Plan (11/20/2023 10:13 AM EDT): -followed by [facility] speeder worker, last seen on 03/23/23. -Last exacerbation in Nov 2022. Prescribed Augmentin by speeder worker. -exacerbation frequency 4 times per year -Hx intubation, mainly for overdose (opioid and BZD) -PFT 03/25/20 Bronchial asthma -continue Fluticasone / umeclidinium / vilanterol as directed -continue theophylline as prescribed -Proper mouth care discussed again -Continue albuterol HFA and nebulizer prn as rescue -Work on smoking cessation Assessment & Plan (08/09/2023 4:52 AM EDT): >>ASSESSMENT AND PLAN FOR CHRONIC OBSTRUCTIVE LUNG DISEASE ([facility]) WRITTEN ON 08/03/2022 10:23 AM BY BUTCH REDMOND -followed by [facility] speeder worker, last seen on 04/07/22. -Last exacerbation in February 2022, bronchitis exacerbation. Rx azithromycin and annual CT Scan. Pt to continue Anoro and theophylline -Pt had 2 antibiotic courses for aspiration pneumonia in Mar / Apr 2021 and 1 antibiotic / prednisone for COPD exacerbation in May 2021 -exacerbation frequency 5 times per year ([id number]) -Hx intubation, mainly for overdose (opioid and BZD) -PFT 03/25/20 Bronchial asthma -continue Trelegy as directed -continue theophylline as prescribed -Proper mouth care discussed again -Continue albuterol HFA and nebulizer prn as rescue -Work on smoking cessation Assessment & Plan (08/09/2023 4:52 AM EDT): >>ASSESSMENT AND PLAN FOR CHRONIC OBSTRUCTIVE LUNG DISEASE ([facility]) WRITTEN ON 04/01/2023 6:48 AM BY HALLIE MCCLENDON MD -followed by [facility] speeder worker, last seen on 03/23/23. -Last exacerbation in Nov 2022. Prescribed Augmentin by speeder worker. -exacerbation frequency 4 times per year -Hx intubation, mainly for overdose (opioid and BZD) -PFT 03/25/20 Bronchial asthma -continue Fluticasone / umeclidinium / vilanterol as directed -continue theophylline as prescribed -Proper mouth care discussed again -Continue albuterol HFA and nebulizer prn as rescue -Work on smoking cessation Assessment & Plan (08/11/2023 6:11 PM EDT): -followed by [facility] speeder worker, last seen on 1/11/24. -Last exacerbation in Nov 2022. Prescribed Augmentin by speeder worker. -exacerbation frequency 4 times per year -Hx [...] ASTHMA WITH COPD (CHRONIC OBSTRUCTIVE PULMONARY DISEASE) ([facility]) WRITTEN ON 04/21/2022 9:31 AM BY BUTCH REDMOND -followed by [facility] speeder worker, last seen on 04/07/22 -Last exacerbation in February 2022, bronchitis exacerbation. Rx azithromycin and annual CT Scan. Pt to continue Anoro and theophylline -Pt had 2 antibiotic courses for aspiration pneumonia in MarApr 2021 and 1 antibiotic / prednisone for COPD exacerbation in May 2021 -exacerbation frequency 5 times per year (5642-1246) -Hx intubation, mainly for overdose (opioid and BZD) -PFT 03/25/20 Bronchial asthma -continue Trelegy as directed -continue theophylline as prescribed -Proper mouth care discussed again -Continue albuterol HFA and nebulizer prn as rescue -Work on smoking cessation >>ASSESSMENT AND PLAN FOR CHRONIC OBSTRUCTIVE LUNG DISEASE ([facility]) WRITTEN ON 04/21/2022 9:31 AM BY BUTCH REDMOND -followed by [facility] speeder worker, last seen on 04/07/22. -Last exacerbation in February 2022, bronchitis exacerbation. Rx azithromycin and annual CT Scan. Pt to continue Anoro and theophylline -Pt had 2 antibiotic courses for aspiration pneumonia in MarApr 2021 and 1 antibiotic / prednisone for COPD exacerbation in May 2021 -exacerbation frequency 5 times per year (8810-3076) -Hx intubation, mainly for overdose (opioid and BZD) -PFT 03/25/20 Bronchial asthma -continue Trelegy as directed -continue theophylline as prescribed -Proper mouth care discussed again -Continue albuterol HFA and nebulizer prn as rescue -Work on smoking cessation Schizophrenia 07/19/2011 Assessment & Plan (10/28/2024 5:34 PM EDT): -followed by psychiatristDr. Vazquez at [facility] -continue Trazodone, Sertraline and Quetiapine with caution (DDI ? prolonged OTc) -animal therapy with dog has been effective. Letter for gut snatcher animal / therapy animal was signed and given to the patient. Assessment & Plan (04/06/2024 7:05 AM EST): -followed by psychiatristDr. Vazquez at [facility] -continue Trazodone, Sertraline and Quetiapine with caution (DDI ? prolonged OTc) -animal therapy with dog has been effective. Letter for gut snatcher animal / therapy animal was signed and given to the patient. Assessment & Plan (11/20/2023 10:24 AM EDT): -followed by psychiatristDr. Vazquez at [facility] -continue Trazodone, Seroquel and Quetiapine with caution (DDI ? prolonged OTc) -requested psychiatrist to review and adjust medications if possible due to his heart failure. Assessment & Plan (08/09/2023 4:56 AM EDT): -followed by psychiatristDr. Vazquez at [facility] -continue Trazodone, Seroquel and Quetiapine with caution (DDI ? prolonged OTc) -requested psychiatrist to review and adjust medications if possible due to his heart failure. Assessment & Plan (08/05/2022 10:20 AM EDT): -followed by psychiatristDr. Vazquez at [facility] -continue Trazodone, Seroquel and Quetiapine [...] METs. Pt was already seen by his speeder worker and bull gang worker again in July 2022, and was cleared [...] Encounters Date Type Department Care Team Description 01/20/2025 10:00 AM EST Office Visit [facility] [address] [place] [phone] Hallie Mcclendon MD Heart failure with reduced ejection fraction (HCC) (Primary Dx); Encounter for immunization; Encounter for vaccination 01/20/2025 Telephone [facility] [address] [place] [phone] Hallie Mcclendon MD Record Request 01/20/2025 Travel 01/17/2025 Telephone [facility] [address] [place] [phone] Hallie Mcclendon MD chartprep 12/31/2024 Refill [facility] [address] [place] [phone] Hallie Mcclendon MD Hypomagnesemia 12/30/2024 Refill [facility] [address] [place] [address] Hallie Mcclendon MD Anemia, unspecified type; Hypomagnesemia 12/19/2024 Telephone [facility] [address] [place] [address] [phone] Hallie Mcclendon MD FYI 12/04/2024 Telephone [facility] [address] [place] [address] 25753 Hallie Mcclendon MD fyi 12/03/2024 Refill [facility] [address] [place] [address] [phone] Hallie Mcclendon MD Hypomagnesemia 12/03/2024 Orders Only GENERIC EXTERNAL DATA DEPARTMENT Provider, Generic External Data 11/13/2024 Refill [facility] [address] [place] [address] Hallie Mcclendon MD Anemia, unspecified type 11/13/2024 Telephone [facility] [address] [place] [address] Hallie Mcclendon MD FYI 11/08/[address] [address] Hallie Mcclendon MD FYI 10/31/[address] [place] [address] Hallie Mcclendon MD FYI 10/29/[address] [address] Hallie Mcclendon MD FYI 10/25/[address] [address] Hallie Mcclendon MD 10/24/2024 10:15 AM EDT Office Visit [address] [address] Hallie Mcclendon MD Primary hypertension (Primary Dx); Heart failure with reduced ejection fraction (CMS/HCC); 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) (CMS/HCC); Pulmonary fibrosis (CMS/HCC); Elevated PSA; Benign prostatic hyperplasia with nocturia; Schizophrenia, unspecified type (CMS/HCC); Hypomagnesemia; Encounter for monitoring of theophylline therapy; Dyslipidemia 10/24/2024 Travel 10/24/[address] [address] Hallie Mcclendon MD notes 10/23/[address] [phone] Hallie Mcclendon MD chart prep from Last 3 Months Immunizations Immunization Administration Dates Next Due Hep A, Adult 08/15/2018,02/14/2018 Hep B, adult 08/03/2022,06/29/2010,05/04/2009 Influenza High-dose Quadriva lent Preservative Free 01/07/2021 Influenza injectable quadriv alent IIV4 with preservative 03/22/2017,01/21/2016,12/30/2014 Influenza injectable quadriv alent preservative free 03/30/2023,04/14/2022,05/06/2014 Influenza, High Dose Seasona l, Preservative Free 01/20/2025,01/03/2024,11/26/2018,12/06 Influenza, IIV3, injectable 11/10/2010, 0,01/08/2003 Influenza, Split (incl. cynthia fied surface antigen) 12/18/2014,12/27/2011 Pfizer Covid-19 Vaccine 12+ 01/20/2025,,03/30/2023 Pfizer Covid-19 Vaccine 12+ Bivalent 03/21/2022 Pneumococcal [...] Mass Index 29.41 01/20/2025 10:09 AM EST Plan of Treatment Health Maintenance Due Date Last Done Comments SDOH Screening 07/09/2025 07/09/2024 Diabetes: Hemoglobin A1C 10/16/2025 025, 04/02/2024, 04/05/2023, Additional history exists Alcohol/Substance Use Screening 01/20/2026 01/20/2025 Depression Screening 01/20/2026 01/20/2025, 01/21/20 25 Tobacco Screening 01/20/2026 01/20/2025 Lipid Panel 12/03/2029 12/03/2024, 03/14, 04/02/2024, Additional [...] Aged 60 years or older Completed 08/15/2023 COVID-19 Vaccine Completed 01/20/2025, , 03/30/2023, Additional history exists Influenza Vaccine Completed 01/20/2025, , 03/30/2023, Additional history exists HIB Vaccines Aged Out [...] MAGNESIUM Routine 12/03/2024 11:26 AM EDT Hypomagnesemia HEMOGLOBIN A1C Routine 10/16/2024 10:37 AM EDT Urinary incontinence, unspecified type from Last 3 Months or Most Recently Relevant to Health Maintenance Results * Magnesium (12/05/2024 9:52 AM EDT) Only the most recent of2 resultswithin the time period is included. Magnesium 1.7 1.6 - 2.6 mg/dL [facility] Blood Venous blood specimen / Unknown 12/05/2024 9:52 AM EDT 12/05/2024 9:52 AM EDT us Hallie Mcclendon MD LAB BLOOD ORDERABLES Final Resul t [facility] [address] [place] [phone] * (ABNORMAL) Basic Metabolic Panel (12/05/2024 9:52 AM EDT) Sodium 143 135 - 145 mmol/L [facility] Potassium 3.5 3.3 - 5.1 mmol/L [facility] Chloride 109(H) 96 - 108 mmol/L [facility] Carbon Dioxide 24 22 - 29 mmol/L [facility] Anion Gap 14 12 - 20 [facility] Urea Nitrogen (BUN) 14 9 - 16 mg/dL [facility] Creatinine, Serum 0.95 0.5 - 1.4 mg/dL [facility] Estimated Glomerular Filt Rate >60 [facility] Comment:Chronic Kidney Disea se: Estimated GFR < 60 mL/min/1.82m6Hbefkj Kidney Disease: Estimated GFR < 15 mL/min/1.73m2 Glucose 169(H) 60 - 115 mg/dL [facility] Calcium 8.8 8.4 - 10.2 mg/dL [facility] Blood Venous blood specimen / Unknown 12/05/2024 9:52 AM EDT 12/05/2024 9:52 AM EDT Hallie Mcclendon MD LAB BLOOD ORDERABLES Final Resul t Performing Organization Address [facility] Co de Phone Number [facility] [address] [place] [phone] * TSH W/Reflex to FT4 (12/03/2024 11:26 AM EDT) TSH reflex Free T4 1.97 0.32 - 4.0 uIU/mL [facility] Blood Venous blood specimen / Unknown 12/03/2024 11:26 AM EDT 12/03/2024 11:26 AM EDT Hallie Mcclendon MD LAB BLOOD ORDERABLES Final Resul t Performing Organization Address [facility] de Phone Number [facility] [address] [place] [phone] * (ABNORMAL) PSA, Total With Reflex to PSA, Free (12/03/2024 11:26 AM EDT) PSA,Total (Free>4and<10) 64.19(H ) 0.00 - 4.00 ng/mL [facility] Comment:A Free PSA was not [...] ORDERAB LES Final Result Performing Organization Address [facility] [facility]/ZIP Co de Phone Number [facility] [address] [place] [phone] * Lipid Panel with Reflex to Direct LDL (12/03/2024 11:26 AM EDT) Triglycerides 106 <150 mg/dL [facility] Comment:Desirable Triglyceri de: less than 150 mg/dLBorderline High Triglyceride 150-199 mg/dLHigh Triglyceride: 200-499 mg/dLVery High Triglyceride: greater than or equal to 5OO mg/dL Cholesterol 116 <200 mg/dL [facility] Comment:Desirable Cholestero l: less than 200 mg/dLBorderline High Cholesterol: 200-239 mg/dLHigh Cholesterol: greater than 239 mg/dL LDL Cholesterol Calculated 53 <100 mg/dL [facility] Comment:Desirable LDL: less than 100 mg/dLNear Optimal/Above Optimal LDL: 110- 129 mg/dLBorderline High LDL: 130-159 mg/dLHigh LDL: 160-189 mg/dLVery High LDL: greater than or equal to 190 mg/dL HDL Cholesterol 42 >40 mg/dL [facility] Comment:Desirable HDL: great er than 40 mg/dL Note: This HDL assay may give artificially low results in patients with liver disease. Blood 12/03/2024 11:2 6 AM EDT 12/03/2024 11:26 AM EDT us Hallie Mcclendon MD LAB BLOOD ORDERABLES Final Resul t Performing Organization Address City/[facility]/ZIP Co de Phone Number [facility] [address] [place] [address] [phone] * (ABNORMAL) Comprehensive Metabolic Panel (12/03/2024 11:26 AM EDT) Sodium 141 135 - 145 mmol/L [facility] Potassium 3.4 3.3 - 5.1 mmol/L [facility] Chloride 108 96 - 108 mmol/L [facility] Carbon Dioxide 24 22 - 29 mmol/L [facility] Anion Gap 12 12 - 20 [facility] Urea Nitrogen (BUN) 14 9 - 16 mg/dL [facility] Creatinine, Serum 0.98 0.5 - 1.4 mg/dL [facility] Estimated Glomerular Filt Rate >60 [facility] Comment:Chronic Kidney Disea se: Estimated GFR < 60 mL/min/1.98t2Rcxjyf Kidney Disease: Estimated GFR < 15 mL/min/1.73m2 Glucose 129(H) 60 - 115 mg/dL [facility] Calcium 8.9 8.4 - 10.2 mg/dL [facility] Bilirubin, Total 1.4(H) 0.0 - 1.0 mg/dL [facility] Aspartate Amino Transferase 34 5 - 37 U/L [facility] Alanine Aminotransferase 14 0 - 40 U/L [facility] Total Protein 7.0 6.5 - 8.0 g/dL [facility] Albumin Level 4.3 3.5 - 5.0 g/dL [facility] Alkaline Phosphatase 53 39 - 117 U/L [facility] Blood Venous blood specimen / Unknown 12/03/2024 11:26 AM EDT 12/03/2024 11:26 AM EDT us Hallie Mcclendon MD LAB BLOOD ORDERABLES Final Resul t [facility] [address] [place] [address] [phone] * Hemoglobin A1c (10/16/2024 10:37 AM EDT) Hemoglobin A1c 5.9 <6.0 % [facility] Comment:Hemoglobin A1C Refer ence Range Adults: 4.8 - 6.0 % Non diabetic: < 6.0 % Goal: < 7.0 %Additional Action Suggested: > 8.0 %Note: Hemoglobin A1c results are invalid for patients with abnormal amounts of HbF. Blood transfusions may impact the HbA1c concentration in the patient sample. Estimated Average Glucose 123 mg/dL [facility] Comment:eAG = Estimated ave rage glucose which is %A1C expressed asaverage glucose, using the formula of the E1L-GtqbcqhRgkpgrq Glucose study (ADAG), Diabetes Care, Vol.31,#8,Oct. 2007 Blood Venous blood specimen / Unknown 10/16/2024 10:37 AM EDT 10/16/2024 11:14 AM EDT Alem Corley ACOUSTICAL MATERIAL WORKER LAB BLOOD ORDERABLES Final Resu lt [facility] [address] [place] [phone] from Last 3 Months or Most Recently Relevant to Health Maintenance Insurance [address] [place] [id number] [facility] LONG TERM OPTIONS (HMO D-SNP) YUNIOR THAKKAR [id number] Care Teams Account Relationship Manager Relationship Specialty Start Date End Date Hallie Mcclendon MD [address] [place] [phone] PCP - General Family Medicine 03/13/18 [facility] 07/05/19
--- OUTSIDE RECORDS SUMMARY | 2025-01-21 10:59 | XMS_ITS | Encounter Summary ---
Author Organization [employer] Address [address] [facility] 7t [place] [address] Care Team Providers Care Social Insurance Analyst Name Role Phone Hallie Mcclendon MD Primary Care Provider [phone] Reason for Referral * Consultation (Routine) - Authorized Specialty Diagnoses / Procedures Referred By Contangel t Referred To Contact Pharmacy Diagnoses Hypertension Kiersten Burkett MD [address] [place] [address] Phone: tel: fax: Referral ID Status Reason Start Date Expiration Date Visits Requested Visits Authorized [id number] Authorized Continuity of Care 07/18/2024 07/18/2025 6 6 Encounter Details Date Type Department Care Team (Late st Contact Info) Description 07/17/2024 Orders Only [facility] MED[facility]INE [address] [place], [place] [phone] Kiersten Burkett MD [address] [place], [place] [phone] Hypertension (Primary Dx) Social History Tobacco Use [...] Referral to Pharmacy [facility] Outpatient Referral Routine Hypertension Ordered: 07/18/2024 documented as of this encounter Visit Diagnoses Diagnosis Hypertension- Primary Unspecified essential hypertension documented in this encounter Additional Health Concerns Assessment Noted Time PHQ-9 Depression Total Score: 0 11/20/19 24 9:22 AM EDT documented as of this encounter Care Teams Social Insurance Analyst Relationship Specialty Start Date End Date Hallie Mcclendon MD [address] [place] [address] PCP - General Family Medicine 03/13/18 [facility] 07/05/19 documented as of this encounter
--- OUTSIDE RECORDS SUMMARY | 2025-01-21 10:59 | XMS_ITS | Encounter Summary ---
Author Organization [employer] Address [address] [facility] 7t [place] [address] Care Team Providers Care Shank Maker Name Role Phone Hallie Mcclendon MD Primary Care Provider [phone] Encounter Details Date Type Department Care Team (Late st Contact Info) Description 06/20/2022 Telephone [facility] MEDICINE [address] [place] [address] Hallie Mcclendon MD [address] [place], [place] [phone] Social History Tobacco Use Types Packs/Day Years [...] on filedocumented in this encounter Care Teams Shank Maker Relationship Specialty Start Date End Date Hallie Mcclendon MD [address] [place] [address] PCP - General Family Medicine 03/13/18 [facility] 07/05/19 documented as of this encounter
--- OUTSIDE RECORDS SUMMARY | 2025-01-21 10:59 | XMS_ITS | Encounter Summary ---
Author Organization [employer] Address [address] [facility] 7t [place] [address] Care Team Providers Care Plastic Outfitter Name Role Phone Hallie Mcclendon MD Primary Care Provider [phone] Reason for Visit * Reason Comments Med Refill Encounter Details Date Type Department Care Team (Late st Contact Info) Description 06/14/2022 Refill [facility] [address] [place], [place] [phone] Hallie Mcclendon MD [address] [place], [place] [phone] Anemia in other chronic diseases classified elsewhere [...] elsewhere documented in this encounter Care Teams Plastic Outfitter Relationship Specialty Start Date End Date Hallie Mcclendon MD [address] [place], [place] [phone] PCP - General Family Medicine 03/13/18 [facility] 07/05/19 documented as of this encounter
--- OUTSIDE RECORDS SUMMARY | 2025-01-21 10:59 | XMS_ITS | Encounter Summary ---
Author Organization [employer] Address [address] [facility] 7t [place] [address] Care Team Providers Care Wader Boot Top Assembler Name Role Phone Hallie Mcclendon MD Primary Care Provider [phone] Reason for Visit * Reason Comments Med Refill Encounter Details Date Type Department Care Team ([facility] st Contact Info) Description 07/13/2023 Refill [facility] [address] [place], [place] [phone] Hallie Mcclendon MD [address] [place], [place] [phone] Constipation, unspecified constipation type Social History Tobacco [...] type documented in this encounter Care Teams Wader Boot Top Assembler Relationship Specialty Start Date End Date Hallie Mcclendon MD [address] [place] [address] PCP - General Family Medicine 03/13/18 [facility] 07/05/19 documented as of this encounter
--- OUTSIDE RECORDS SUMMARY | 2025-01-21 10:59 | XMS_ITS | Encounter Summary ---
Author Organization [employer] Address [address] [facility] 7t [place] [address] Care Team Providers Care Cv/Cvn Cv Tsc System Operator Name Role Phone Hallie Mcclendon MD Primary Care Provider [phone] Encounter Details Date Type Department Care Team (Late st Contact Info) Description 04/01/2022 Orders Only [facility] MEDICINE [address] [place] [address] Yuliana Barrios, RN Social History Tobacco Use [...] on filedocumented in this encounter Care Teams Cv/Cvn Cv Tsc System Operator Relationship Specialty Start Date End Date Hallie Mcclendon MD [address] [place] [address] PCP - General Family Medicine 03/13/18 [facility] 07/05/19 documented as of this encounter
--- OUTSIDE RECORDS SUMMARY | 2025-01-21 10:59 | XMS_ITS | Encounter Summary ---
Author Organization [employer] Address [address] [facility] [address] [place] [address] Care Team Providers Care Side Stitching Machine Operator Name Role Phone Hallie Mcclendon MD Primary Care Provider Reason for Visit * Reason Comments Med Refill Encounter Details Date Type Department Care Team ([facility] st Contact Info) Description 07/13/2023 Refill [facility] MEDICINE [address] [place], [place] [phone] Hallie Mcclendon MD [address] [place], [place] [phone] Constipation, unspecified constipation type Social History Tobacco [...] type documented in this encounter Care Teams Side Stitching Machine Operator Relationship Specialty Start Date End Date Hallie Mcclendon MD [address] [place] [address] PCP - General Family Medicine 03/13/18 [facility] 07/05/19 documented as of this encounter
--- OUTSIDE RECORDS SUMMARY | 2025-01-21 10:59 | XMS_ITS | Encounter Summary ---
Author Organization [employer] Address [address] [facility] 7t [place] [address] Care Team Providers Care Quill Winder Name Role Phone Hallie Mcclendon MD Primary Care Provider [phone] Reason for Visit * Reason Comments Med Refill Encounter Details Date Type Department Care Team ([facility] st Contact Info) Description 05/14/2024 Refill [facility] MEDICINE [address] [place], [place] [phone] Hallie Mcclendon MD [address] [place], [place] [phone] Social History Tobacco Use Types Packs/Day Years [...] documented as of this encounter Care Teams Quill Winder Relationship Specialty Start Date End Date Hallie Mcclendon MD [address] [place] [address] PCP - General Family Medicine 03/13/18 [facility] 07/05/19 documented as of this encounter
== END 2025-01-21 10:49 | disposition home or self-care (01) ==
LOC: HO.HUSH 09:45
PROVIDERS: PCP Family Medicine; Visit Provider Urology
DX: R97.20 Elevated prostate specific antigen [PSA] (principal)
CPT/HCPCS: 99213; G2211

== ENCOUNTER → 2025-01-21 09:44 | Outpatient (BNVA) | payer OTHER, SELFPAY | PROVIDERS: PCP Family Medicine; Visit Provider Urology | DX: R97.20 Elevated prostate specific antigen [PSA] (principal) | CPT/HCPCS: 99212 ==

== ENCOUNTER 2025-01-29 10:47 | Outpatient (AMB) | payer OTHER, SELFPAY ==
[2025-01-29 10:53] VITALS: BP 98/58; PULSE 103; O2SAT 95; BMI 28.3
--- NOTE | 2025-01-29 10:53 | MHC.OFFVIS ---
Vital Signs 01/29/25 10:53 Height 5 ft 3 in Weight 160 lb BMI 28.3 BP 98/58 L Blood Pressure Location Rt brachial Position Sitting Pulse 103 H Pulse Source Pulse Oximeter Pulse Oximetry (%) 95 Oxygen Delivery Method Room Air Intake Visit Reasons: pulmonary fibrosis Allergies No Known Allergies Allergy (Verified 01/29/25 11:00) HPI HPI pulmonary fibrosis: Details: 84-year-old gentleman, former 50+ years smoker, quit 2020, now followed for moderate COPD, pulmonary fibrosis, and bilateral pulmonary nodules.?He has been using Trelegy, theophylline and albuterol MDI/nebs with good control of his symptoms. He denies any recent exacerbations. [facility] Medical History (Updated 01/23/24 @ 07:43 by Krystyna Christianson RN) Schizophrenia Hiatal hernia Opioid dependence, uncomplicated Tobacco use disorder Lung nodules COPD (chronic obstructive pulmonary disease) Undifferentiated schizophrenia Transient alteration of awareness ST segment depression Dizziness Memory impairment Chronic anemia Substance abuse Gallstones Smoker Depression Gastritis Esophagitis Asthma GERD (gastroesophageal reflux disease) HTN (hypertension) Surgical History History of esophagogastroduodenoscopy (EGD) Hx of colonoscopy History of prostate biopsy Family History Father No problems noted. Mother No problems noted. 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 Housing: House Are you a primary career services representative to a significant other at home: No Do you presently have visiting nurse or other home services: No Alcohol intake: never Patient Tobacco Use Status: Never used Tobacco Tobacco use type: Cigarette Cigarettes Per Day: 4 Second Hand Smoke Exposure: No Substance Use Type: Heroin service: No Current occupational status: unemployed and disabled Review of Systems Const Denies daytime sleepiness, Denies excessive sweating, Denies fatigue, Denies fever(s), Denies lethargy, Denies malaise, Denies night sweats, Denies snoring and Denies weight loss Eyes Denies blurry vision and Denies itchy eyes ENT Denies nasal congestion, Denies post nasal drip, Denies sinus pain, Denies sinus pressure and Denies other ( Thrush) Card Denies chest pain, Denies pedal edema, Denies dyspnea, Denies orthopnea and Denies paroxysmal nocturnal dyspnea Resp Denies cough, Denies hemoptysis, Denies excessive phlegm production, Denies dyspnea, Denies snoring and Denies wheezing GI Denies abdominal pain and Denies heartburn Musc Denies myalgias, Denies arthralgias and Denies joint swelling Skin/Breast Denies rash Neuro Denies memory loss and Denies seizure-like activity Psych Denies abnormal sleep pattern, Denies anxiety and Denies memory loss Endo Denies excessive sweating, Denies fatigue and Denies heat intolerance Griffin/Lymph Denies easy bruising Aller/Immun Denies itchy eyes, Denies seasonal rhinorrhea and Denies wheezing Physical Exam Vital Signs: Last Vital Signs Pulse 103 H 01/29/25 10:53 BP 98/58 L 01/29/25 10:53 Pulse Ox 95 01/29/25 10:53 Oxygen Delivery Method Room Air 01/29/25 10:53 BMI result Body Mass Index 28.3 Const General: no acute distress and alert Nutritional Appearance: not obese Orientation/consciousness: Other orientation findings ( oriented) HEENT Head: Yes atraumatic Eyes General: appearance normal, both eyes and all related structures Sclerae: sclerae normal EOM: EOMs intact bilaterally Neck Neck: Yes supple Lymphatic: no lymphadenopathy noted Resp Effort & Inspection: normal respiratory effort and no use of accessory muscles Auscultation: clear to auscultation bilaterally Cardio Rate: regular rate Rhythm: regular rhythm Heart sounds: no gallops, no murmurs and no rubs Skin General skin exam: other ( warm) Extrem General: No clubbing, No cyanosis and No edema Assessment & Plan Assessment & Plan (1) Pulmonary fibrosis: Code(s): J84.10 - Pulmonary fibrosis, unspecified Category: Medical (2) COPD (chronic obstructive pulmonary disease): Code(s): J44.9 - Chronic obstructive pulmonary disease, unspecified Category: Medical Plan Respiratory symptoms well controlled on current regimen of Trelegy and albuterol MDI. Continue current regimen. Will repeat CT chest in 6 months to evaluate for pulmonary fibrosis progression. Coding Level of Care Code Est Pt Level 4 (49156) Diagnoses Pulmonary fibrosis J84.10 COPD (chronic obstructive pulmonary disease) J44.9
--- OUTSIDE RECORDS SUMMARY | 2025-01-29 21:16 | XMS_ITS | Data Portability ---
Author Organization [employer] [facility] [place] [employer] Medical [facility] Address [address] [place] [address] Care Team Providers Care Enrichment Specialist Name Role Phone HIM CCA OTHER Unavailable OTHER ELIAN CHAVIRA Primary Care Provider [phone] Assessment Encounter Date Assessment Date Assessment LastModified [...] Assessment and Plan as documented by the Folding Rules Printing Machine Operator. We discussed the diagnostic uncertainty of home visits and the risk associated with this. In this case I felt this to be an acceptable and reasonable amount of risk given the benefit of avoiding an ED visit. The patient given the opportunity to ask questions via Pashto language line educational sign language interpreter.. Advised if develops severe pain in the hand/ LUE/ if it becomes red / hot or cold blue or numb// hi fever advised to get rechecked immediately in the emergency department- he verbalized understanding of instructions to the medic via educational sign language interpreter [email or web address] Not available 01/01/2024 12:52:50 Plan of Treatment Reminders Order Date Submit Date Provider Last Modified By Organization Details Last Modified Time Details Appointments None recorded. Lab None recorded. Referral None recorded. Procedures None recorded. Surgeries None recorded. Imaging None recorded. Medication Orders acetaminoph en 500 mg tablet 2023 [email or web address] Not available 13:22:31 acetaminoph en 500 mg tablet 2023 [facility], [address] [place] [address], [id number], 15:34:02 Patient TargetsNo targets recorded. Patient InstructionsNo [...] % 99 % 82 /min 14 /min 69837.3 76 g 14 /min 99 % 99 % 98.5 [degF] 82 /min 64918.3 76 g Not Available [employer] - production [...] Details Last Updated DateTime 4 89 /min 35503.3 36 g 17 /min 98.2 [degF] 160.02 [...] 8754 Deshawn Stanton MD Main - [facility] [address] [place] [phone] 06/02/2022 12:06:33 06/06/2022 12:44:47 Strain of muscle of chest wall [id number] S29.011A [id number] Joanne Smith MD Main - [facility] [address] [place] [address] [phone] 01/01/2024 12:33:37 01/02/2024 10:13:23 Contusion of left thumb [id number] S60.012A Advised to elevate/ advised ice / [...] Crawford Member ID Guarantor Name 10/15/2023 1 [facility] - DOS PRIOR TO 2022 - DUAL ELIGIBLE (MEDICARE REPLACEMENT/ADV ANTAGE - HMO) Joseph Hicks [id number] Joseph Hicks 01/16/2024 1 [facility] - DOS ON OR AFTER 2022 - DUAL ELIGIBLE - DETENTION OPTIONS AND ONE CARE (MEDICARE REPLACEMENT/ADV ANTAGE - HMO) Joseph Hicks [id number] Joseph Hicks Notes Date Note Type Note Provider Name and Address Organization Details Recorded Time 06/02/2022 text/html HPI: Spoke with member via Pashto int #[id number] requesting [facility] visit for eval R sided upper back and chest area since yesterday s/p turned to take seatbelt off. No OTC's States pain resolved would just like it checked Deny SOB or N/V. Discuss if symptoms return/progress to seek emergent care call 911/-verbalize understanding. Verify member identity name/- .................... .................... .................... .................... .................... .................... .................... . Folding Rules Printing Machine Operator Note From Pedro Pablo Holland: Pt [...] . Disposition: Fulfilled Valmeek Kudesia, MD [address] [facility],[address], [place], [phone], [employer] 06/02/2022 18:07:45 01/01/2024 text/html ROS as noted [...] .................... .................... .................... .................... .................... .................... . Folding Rules Printing Machine Operator Note From Mauricio Katz: [facility] makes pt contact 83 yo M CC of swelling to left thumb.[facility] obtains consent and uploads electronically. PT vitals obtained. [facility] uses interpretation services due to [...] denies blood thinners or any recent traumas. [facility] contacts [facility] and uploads picture electronically. [facility] believes pt struck hand causing the injury and bruising, PT also has repetitive movement of rolling the thumb across the pointer finger with a closed fist which was witnessed throughout the call. [facility] orders 1gram of PO acetaminophen if pt wants it which he agrees too, PT also accepts a prescription of acetaminophen sent to his pharmacy at [facility]. PT is advised to use [...] then he may need imaging. PT understands [facility] clear. .................... .................... .................... .................... [...] to psychiatric meds Joanne Smith MD [address] [facility],[address], [place], [phone], [employer] 01/01/2024 14:47:58
== END 2025-01-29 11:17 | disposition home or self-care (01) ==
LOC: HO.HPS 10:48
PROVIDERS: PCP Family Medicine; Visit Provider Internal Medicine Pulmonary Disease
DX: J84.10 Pulmonary fibrosis, unspecified (principal); J44.9 Chronic obstructive pulmonary disease, unspecified
CPT/HCPCS: 99214

== ENCOUNTER → 2025-01-29 10:47 | Outpatient (BNVA) | payer OTHER, SELFPAY | PROVIDERS: PCP Family Medicine; Visit Provider Internal Medicine Pulmonary Disease | DX: J84.10 Pulmonary fibrosis, unspecified (principal); J44.9 Chronic obstructive pulmonary disease, unspecified; Z87.891 Personal history of nicotine dependence | CPT/HCPCS: 99212 ==

== ENCOUNTER 2025-02-13 08:07 | Outpatient (REF) | payer OTHER, SELFPAY ==
--- OUTSIDE RECORDS SUMMARY | 2025-02-13 08:16 | XMS_ITS | Clinical Summary ---
Author Organization [employer] Address [address] [place] [address] [address] [place] [address] Care Team Providers Care Front Office Medical Assistant Name Role Phone Hallie Mcclendon MD Primary Care Provider [phone] Allergies No known active allergies Medications traZODone (Desyrel) 50 MG tablet Take 50 mg by mouth at bedtime. 2 Active QUEtiapine (SEROquel) 100 MG tablet Take 1 tablet by mouth at bedtime. Active albuterol (2.5 MG/3ML) 0.083% nebulizer solution inhale 3 milliliter (2.5MG) by nebulization route every 4-6 hours as needed for difficulty breathing, up to 4 times/day as needed 1 Active albuterol 108 (90 Base) MCG/ACT inhaler Inhale 2 puffs every 4 (four) hours if needed. 1 Active naloxone (Narcan) 4 mg/0.1 mL nasal spray Administer 0.1 mL into affected nostril(s). 1 Active tamsulosin (Flomax) 0.4 MG 24 hr capsule Take 0.4 mg by mouth in the evening. 2 Active Fluticasone-Ume clidin-Vilant (Trelegy Ellipta) 200-62.5-25 MCG/ACT [...] BY MOUTH EVERY MORNING 90 tablet 3 3 Active Additional Information Patient not taking.Reported on 07/18/2024 furosemide (Lasix) 20 MG tablet Take 20 mg by mouth in the morning. 4 Active alendronate (Fosamax) 70 MG tablet take 1 tablet once a week with 6 to 8 oz of water 30 min before first food of day. do not lie down for 30 minutes 4 tablet 11 02/04/2025 5:48 PM EST 5 Active atorvastatin (Lipitor) 40 MG tablet Take 1 tablet (40 mg) by mouth at bedtime. 90 tablet 3 5 Active QUEtiapine (SEROquel) 25 MG tablet Take 1 tablet by mouth 2 times daily. 5 Active sertraline (Zoloft) 100 MG tablet Take 1.5 tablets by mouth Once per day. Active metoprolol tartrate (Lopressor) 25 MG tablet Take 0.5 tablets by mouth 2 times daily. 5 Active Multiple Vitamin (Multivitamin) tablet TAKE 1 TABLET BY MOUTH EVERY MORNING WITH FOOD 90 tablet 3 5 Active omeprazole (PriLOSEC) [address] capsuleIndicati ons:Gastroesoph ageal reflux disease, unspecified whether esophagitis present TAKE 1 TABLET BY MOUTH EVERY MORNING 90 capsule 3 5 Active cholecalciferol VITAMIN D (Vitamin D-3) 50 MCG (2000 UT) tabletIndicatio ns:Vitamin deficiency TAKE 1 TABLET BY MOUTH EVERY MORNING 30 tablet 5 5 Active omega-3 acid ethyl esters (Lovaza) 1 g capsuleIndicati ons:Hyperlipide remigio, unspecified TAKE 1 CAPSULE BY MOUTH TWICE DAILY IN THE MORNING AND IN THE EVENING 60 capsule 5 Active Acetaminophen Extra Strength 500 MG tablet TAKE 1 TO 2 TABLETS BY MOUTH EVERY 8 HOURS NEEDED FOR PAIN OR FEVER 90 tablet 1 5 Active Ascorbic Acid (vitamin C) 250 MG tabletIndicatio ns:Anemia, unspecified type TAKE 1 TABLET BY MOUTH EVERY MORNING 30 tablet 5 Active Ferrous Sulfate (iron) 325 (65 Fe) MG tabletIndicatio ns:Anemia, unspecified type TAKE 1 TABLET BY MOUTH EVERY MORNING 30 tablet 5 Active magnesium oxide (Mag-Ox) 400 (240 Mg) MG tabletIndicatio ns:Hypomagnesem ia TAKE 1 TABLET BY MOUTH EVERY OTHER DAY 15 tablet 3 5 Active magnesium oxide (Mag-Ox) 400 MG tabletIndicatio ns:Hypomagnesem ia Take 1 tablet (400 mg) by mouth every other day. 15 tablet 5 025 Active Problems Problem Noted Date Diagnosed Date Hypomagnesemia 08/01/2024 Assessment & Plan (01/31/2025 5:57 AM EST): - Previously taking magnesium oxide daily. However, it was decreased when he was having diarrhea. He was taking other laxatives at that time. - Due to recent low magnesium, restarted magnesium oxide at lower dose. Continue current replacement. Check magnesium level periodically. Assessment & Plan (10/28/2024 5:34 PM EDT): [...] modifications Pulmonary fibrosis 08/09/2023 Assessment & Plan (01/31/2025 5:59 AM EST): - following with [facility] pulmonology - quit smoking 1 year ago Assessment & Plan (10/28/2024 5:35 PM EDT): - [facility] 7 months [facility] Assessment & Plan (04/06/2024 6:43 AM EST): - following with [facility] pulmonology - quit smoking 7 months ago Assessment & Plan (11/20/2023 10:12 AM EDT): - following with [facility] - quit smoking 4 months ago Assessment & Plan (08/11/2023 6:11 PM EDT): - following with [facility] Family history of colon cancer 08/04/2023 GERD (gastroesophageal reflux disease) History of sphincterotomy of sphincter of Oddi 0 08/04/2023 Sessile colonic polyp 08/04/2023 Assessment & Plan (11/20/2023 10:15 AM EDT): - seen by [facility], and is being scheduled for colonoscopy in September 2023 Assessment & Plan (08/11/2023 6:12 PM EDT): - seen by [facility], and is being scheduled for colonoscopy in September 2023 History of substance use disorder 08/04/2023 Gallstones 08/04/2023 PVD (peripheral vascular disease) 08/04/2023 Depression 08/04/2023 Hypertension 08/03/2022 Assessment & Plan (01/31/2025 5:50 AM EST): -Goal BP < 130 per ACC/AHA guideline (Treatment threshold >=130 ) -BP within acceptable range, reportedly low at home, asymptomatic -Continue working on lifestyle modifications -Recommended self-monitoring BP. -Continue current medications: Metoprolol succinate 25 mg daily (mainly started for tachycardia); furosemide 20 mg daily; Entresto -Follow up in 3-6 mo, sooner if any problem arises Assessment & Plan (10/24/2024 4:10 PM EDT): [...] modifications Elevated PSA 04/21/2022 Assessment & Plan (01/31/2025 5:58 AM EST): - 08/29/22 [facility] biopsy pathology report - BPH. Commented as below: Basal cell hyperplasia and areas with urothelium are seen in multiple biopsies (A, E, H for example). The atypical focus in part C lacks basal cells but doesn't have any racemase immunoreactivity - nevertheless, it's very worrisome for carcinoma. - Most recent PSA 64. Waiting for CT PET scan. - continue following with urologist Assessment & Plan (10/28/2024 5:34 PM EDT): [...] and right lower lobe. -recently seen by family assistant. Because there was no pulmonary nodule, surveillance [...] and right lower lobe. -recently seen by family assistant. Because there was no pulmonary nodule, surveillance [...] and right lower lobe. -recently seen by family assistant. Because there was no pulmonary nodule, surveillance [...] and right lower lobe. -recently seen by family assistant. Because there was no pulmonary nodule, surveillance [...] CT Venous insufficiency 04/21/2022 Assessment & Plan (01/31/2025 5:48 AM EST): -s/p right great saphenous venous ablation by Dr. Galindo on 10/30/20 -s/p left GSV venous ablation on 01/01/21 -DASH diet, leg elevation, compression stocking - no edema today, 01/20/2025 Assessment & Plan (11/20/2023 10:13 AM EDT): [...] with reduced ejection fraction Assessment & Plan (01/31/2025 6:01 AM EST): -High Tension Tester: RADHA, last seen in November 2024 -nuclear stress test in June 2021 which was not diagnostic for ischemia -09/08/21 TTE Moderate global hypokinesis. LVEF 30-35%. Moderate aortic regurgitation. -07/05/22 Echocardiogram results showed EF 25-30%. LV size and wall thickness are normal. Mid to distal, anterior, anteroseptal, and apical espino are akinetic. Mild aortic regurgitation. -07/04/23 echocardiogram: Mod global hypokynesis. [id number]%. Mild-to-mod aortic regurgitation. No . Mild thickening of anterior and posterior mitral valve leaflets. No pulmonary hypertension. -current medications: Entresto 49 mg-51 mg BID, aspirin 81 mg daily; metoprolol succinate 25 mg daily; furosemide 20 mg daily - Patient was evaluated for ICD / BiV Devices. Currently still being an option, but not urgent per french folder. Reassess in 6 mo follow up and 12-mo TTE per french folder. - Continuing optimizing risk factor management, medication adherence, and working on lifestyle modifications - Psychiatric medications cause prolonged QT. Monitor closely. Assessment & Plan (10/24/2024 4:10 PM EDT): -High Tension Tester: RADHA, last seen in July 2023 -nuclear stress test in June 2021 which was not diagnostic for ischemia -09/08/21 TTE Moderate global hypokinesis. LVEF 30-35%. Moderate aortic regurgitation. -07/05/22 Echocardiogram results showed EF 25-30%. LV size and wall thickness are normal. Mid to distal, anterior, anteroseptal, and apical espino are akinetic. Mild aortic regurgitation. -07/04/23 echocardiogram: Mod global hypokynesis. [id number]%. Mild-to-mod aortic regurgitation. No . Mild thickening of anterior and posterior mitral valve leaflets. No pulmonary hypertension. -current medications: Entresto 49 mg-51 mg BID, aspirin 81 mg daily; metoprolol succinate 25 mg daily; furosemide 20 mg daily - Patient was evaluated for ICD / BiV Devices. Currently still being an option, but not urgent per french folder. Reassess in 6 mo follow up and 12-mo TTE per french folder. - Continuing optimizing risk factor management, medication adherence, and working on lifestyle modifications - Psychiatric medications cause prolonged QT. Monitor closely. Assessment & Plan (04/06/2024 7:07 AM EST): -High Tension Tester: RADHA, last seen in July 2023 -nuclear stress test in June 2021 which was not diagnostic for ischemia -09/08/21 TTE Moderate global hypokinesis. LVEF 30-35%. Moderate aortic regurgitation. -07/05/22 Echocardiogram results showed EF 25-30%. LV size and wall thickness are normal. Mid to distal, anterior, anteroseptal, and apical espino are akinetic. Mild aortic regurgitation. -07/04/23 echocardiogram: Mod global hypokynesis. [id number]%. Mild-to-mod aortic regurgitation. No . Mild thickening of anterior and posterior mitral valve leaflets. No pulmonary hypertension. -current medications: Entresto 49 mg-51 mg BID, aspirin 81 mg daily; metoprolol succinate 25 mg daily; furosemide 20 mg daily - Patient was evaluated for ICD / BiV Devices. Currently still being an option, but not urgent per french folder. Reassess in 6 mo follow up and 12-mo TTE per french folder. - Continuing optimizing risk factor management, medication adherence, and working on lifestyle modifications - Psychiatric medications cause prolonged QT. Monitor closely. Assessment & Plan (11/20/2023 10:15 AM EDT): -High Tension Tester: RADHA, last seen on 07/12/22. -nuclear stress test in June 2021 which was not diagnostic for ischemia -09/08/21 TTE Moderate global hypokinesis. LVEF 30-35%. Moderate aortic regurgitation. -07/05/22 Echocardiogram results showed EF 25-30%. LV size and wall thickness are normal. Mid to distal, anterior, anteroseptal, and apical espino are akinetic. Mild aortic regurgitation. -07/04/23 echocardiogram: Mod global hypokynesis. [id number]%. Mild-to-mod aortic regurgitation. No . Mild thickening of anterior and posterior mitral valve leaflets. No pulmonary hypertension. -current medications: Entresto 49 mg-51 mg BID, aspirin 81 mg daily; metoprolol succinate 25 mg daily - Patient was evaluated for ICD / BiV Devices. Currently still being an option, but not urgent per french folder. Reassess in 6 mo follow up and 12-mo TTE per french folder. - Continuing optimizing risk factor management, medication adherence, and working on lifestyle modifications - Psychiatric medications cause prolonged QT. Monitor closely. Assessment & Plan (08/09/2023 4:53 AM EDT): -High Tension Tester: RADHA, last seen on 07/12/22. -nuclear stress [...] being an option, but not urgent per french folder. Reassess in 6 mo follow up and 12-mo TTE per french folder. - Continuing optimizing risk factor management, medication adherence, and working on lifestyle modifications - Psychiatric medications cause prolonged QT. Monitor closely. Assessment & Plan (03/30/2023 6:30 AM EST): -High Tension Tester: RADHA, last seen on 07/12/22. -nuclear stress [...] being an option, but not urgent per french folder. Reassess in 6 mo follow up and 12-mo TTE per french folder. - Continuing optimizing risk factor management, medication adherence, and working on lifestyle modifications - Psychiatric medications cause prolonged QT. Monitor closely. Assessment & Plan (08/05/2022 11:37 AM EDT): -High Tension Tester: RADHA, last seen on 07/12/22. -nuclear stress [...] being an option, but not urgent per french folder. Reassess in 6 mo follow up and 12-mo TTE per french folder. - Continuing optimizing risk factor management, medication [...] now interested in ICD or BiV Devices -High Tension Tester: RADHA, last seen on 11/24/21 and 12/29/21. Referred for biventricular device placement evaluation. Pt declined ICD or BiV devices. Continuing medical management with Entresto. -nuclear stress test in June 2021 which was not diagnostic for ischemia -due to his low EF, pacemaker may be indicated -follow-up with french folder as scheduled -continue working on lifestyle modifications [...] Plan (04/01/2023 6:09 AM EST): -followed by Urologist, Dr. Molina [...] Plan (04/22/2022 11:41 AM EST): -followed by UrologistDr. Molina for PSA/BPH, last seen on 02/16/22. [...] - Consider intensifying statin therapy and/or changing Dobbins 3 to icosapent ethyl. Assessment & Plan [...] EST): -followed by psychiatrist, Dr. Vazquez at [facility] -continue Trazodone, Sertaline and Quetiapine with caution (DDI ? prolonged OTc) - continue animal therapy with dog / interactive media marketing specialist animal Assessment & Plan (11/20/2023 10:26 AM EDT): -followed by psychiatristDr. Vazquez at [facility] -continue Trazodone, Seroquel and Quetiapine with caution (DDI ? prolonged OTc) -requested psychiatrist to review and adjust medications if possible due to his heart failure. Assessment & Plan (08/05/2022 10:20 AM EDT): -followed by psychiatristDr. Vazquez at [facility] -continue Trazodone, Seroquel and Quetiapine with caution (DDI ? prolonged OTc) -requested psychiatrist to review and adjust medications if possible due to his heart failure. Assessment & Plan (04/21/2022 9:30 AM EST): -followed by psychiatristDr. Vazquez at [facility] -continue Trazodone, Seroquel and Quetiapine with caution (DDI ? prolonged OTc) -requested psychiatrist to review and adjust medications if possible due to his heart failure. 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 Bocanegra in Feb 2024 -Last exacerbation in Nov 2022. Prescribed Augmentin by family assistant. -exacerbation frequency 4 times per year -Hx intubation, mainly for overdose (opioid and BZD) -PFT 03/25/20 Bronchial asthma -continue Fluticasone / umeclidinium / vilanterol as directed -continue theophylline as prescribed -Proper mouth care discussed again -Continue albuterol HFA and nebulizer prn as rescue -Continue smoking cessation effort and maintaining abstinence Assessment & Plan (10/28/2024 5:35 PM EDT): -followed by [facility] family assistant, last seen by Dr. Bocanegra in Feb 2024 -Last exacerbation in Nov 2022. Prescribed Augmentin by family assistant. -exacerbation frequency 4 times per year -Hx intubation, mainly for overdose (opioid and BZD) -PFT 03/25/20 Bronchial asthma -continue Fluticasone / umeclidinium / vilanterol as directed -continue theophylline as prescribed -Proper mouth care discussed again -Continue albuterol HFA and nebulizer prn as rescue -Continue smoking cessation effort and maintaining abstinence Assessment & Plan (04/06/2024 6:46 AM EST): -followed by [facility] family assistant, last seen by Dr. Bocanegra in Feb 2024 -Last exacerbation in Nov 2022. Prescribed Augmentin by family assistant. -exacerbation frequency 4 times per year -Hx intubation, mainly for overdose (opioid and BZD) -PFT 03/25/20 Bronchial asthma -continue Fluticasone / umeclidinium / vilanterol as directed -continue theophylline as prescribed -Proper mouth care discussed again -Continue albuterol HFA and nebulizer prn as rescue -Continue smoking cessation effort and maintaining abstinence Assessment & Plan (11/20/2023 10:13 AM EDT): -followed by [facility] family assistant, last seen on 03/23/23. -Last exacerbation in Nov 2022. Prescribed Augmentin by family assistant. -exacerbation frequency 4 times per year -Hx intubation, mainly for overdose (opioid and BZD) -PFT 03/25/20 Bronchial asthma -continue Fluticasone / umeclidinium / vilanterol as directed -continue theophylline as prescribed -Proper mouth care discussed again -Continue albuterol HFA and nebulizer prn as rescue -Work on smoking cessation Assessment & Plan (08/09/2023 4:52 AM EDT): >>ASSESSMENT AND PLAN FOR CHRONIC OBSTRUCTIVE LUNG DISEASE ([facility]) WRITTEN ON 08/03/2022 10:23 AM BY BUTCH REDMOND -followed by [facility] family assistant, last seen on 04/07/22. -Last exacerbation in February 2022, bronchitis exacerbation. Rx azithromycin and annual CT Scan. Pt to continue Anoro and theophylline -Pt had 2 antibiotic courses for aspiration pneumonia in Mar / Apr 2021 and 1 antibiotic / prednisone for COPD exacerbation in May 2021 -exacerbation frequency 5 times per year (9008-4099) -Hx intubation, mainly for overdose (opioid and BZD) -PFT 03/25/20 Bronchial asthma -continue Trelegy as directed -continue theophylline as prescribed -Proper mouth care discussed again -Continue albuterol HFA and nebulizer prn as rescue -Work on smoking cessation Assessment & Plan (08/09/2023 4:52 AM EDT): >>ASSESSMENT AND PLAN FOR CHRONIC OBSTRUCTIVE LUNG DISEASE ([facility]) WRITTEN ON 04/01/2023 6:48 AM BY HALLIE MCCLENDON MD -followed by [facility] family assistant, last seen on 03/23/23. -Last exacerbation in Nov 2022. Prescribed Augmentin by family assistant. -exacerbation frequency 4 times per year -Hx intubation, mainly for overdose (opioid and BZD) -PFT 03/25/20 Bronchial asthma -continue Fluticasone / umeclidinium / vilanterol as directed -continue theophylline as prescribed -Proper mouth care discussed again -Continue albuterol HFA and nebulizer prn as rescue -Work on smoking cessation Assessment & Plan (08/11/2023 6:11 PM EDT): -followed by [facility] family assistant, last seen on 03/23/23. -Last exacerbation in Nov 2022. Prescribed Augmentin by family assistant. -exacerbation frequency 4 times per year -Hx [...] ASTHMA WITH COPD (CHRONIC OBSTRUCTIVE PULMONARY DISEASE) ([facility]) WRITTEN ON 04/21/2022 9:31 AM BY BUTCH REDMOND -followed by [facility] family assistant, last seen on 04/07/22 -Last exacerbation in February 2022, bronchitis exacerbation. Rx azithromycin and annual CT Scan. Pt to continue Anoro and theophylline -Pt had 2 antibiotic courses for aspiration pneumonia in MarApr 2021 and 1 antibiotic / prednisone for COPD exacerbation in May 2021 -exacerbation frequency 5 times per year ([id number]) -Hx intubation, mainly for overdose (opioid and BZD) -PFT 03/25/20 Bronchial asthma -continue Trelegy as directed -continue theophylline as prescribed -Proper mouth care discussed again -Continue albuterol HFA and nebulizer prn as rescue -Work on smoking cessation >>ASSESSMENT AND PLAN FOR CHRONIC OBSTRUCTIVE LUNG DISEASE ([facility]) WRITTEN ON 04/21/2022 9:31 AM BY BUTCH REDMOND -followed by [facility] family assistant, last seen on 04/07/22. -Last exacerbation in February 2022, bronchitis exacerbation. Rx azithromycin and annual CT Scan. Pt to continue Anoro and theophylline -Pt had 2 antibiotic courses for aspiration pneumonia in MarApr 2021 and 1 antibiotic / prednisone for COPD exacerbation in May 2021 -exacerbation frequency 5 times per year ([id number]) -Hx intubation, mainly for overdose (opioid and BZD) -PFT 03/25/20 Bronchial asthma -continue Trelegy as directed -continue theophylline as prescribed -Proper mouth care discussed again -Continue albuterol HFA and nebulizer prn as rescue -Work on smoking cessation Schizophrenia 07/19/2011 Assessment & Plan (01/31/2025 5:59 AM EST): -followed by psychiatrist, Dr. Vazquez at [facility] -continue Trazodone, Sertraline and Quetiapine with caution (DDI ? prolonged OTc) -animal therapy with dog has been effective. Letter for interactive media marketing specialist animal / therapy animal was signed and given to the patient. Assessment & Plan (10/28/2024 5:34 PM EDT): -followed by psychiatristDr. Vazquez at [facility] -continue Trazodone, Sertraline and Quetiapine with caution (DDI ? prolonged OTc) -animal therapy with dog has been effective. Letter for interactive media marketing specialist animal / therapy animal was signed and given to the patient. Assessment & Plan (04/06/2024 7:05 AM EST): -followed by psychiatristDr. Vazquez at [facility] -continue Trazodone, Sertraline and Quetiapine with caution (DDI ? prolonged OTc) -animal therapy with dog has been effective. Letter for interactive media marketing specialist animal / therapy animal was signed and given to the patient. Assessment & Plan (11/20/2023 10:24 AM EDT): -followed by psychiatristDr. Vazquez at [facility] -continue Trazodone, Seroquel and Quetiapine with caution (DDI ? prolonged OTc) -requested psychiatrist to review and adjust medications if possible due to his heart failure. Assessment & Plan (08/09/2023 4:56 AM EDT): -followed by psychiatristDr. Vazquez at [facility] -continue Trazodone, Seroquel and Quetiapine with caution (DDI ? prolonged OTc) -requested psychiatrist to review and adjust medications if possible due to his heart failure. Assessment & Plan (08/05/2022 10:20 AM EDT): -followed by psychiatrDr. Taylor castañeda at [facility] -continue Trazodone, Seroquel and Quetiapine with caution (DDI ? prolonged OTc) -requested psychiatrist to review and adjust medications if possible due to his heart failure. Resolved Problems Problem Noted Date Diagnosed Date Resolved Date Aspiration pneumonia ([facility]) 08/01/2024 01/31/2025 Assessment & Plan (08/01/2024 11:03 AM EDT): Seems to be resolved Chronic anemia 08/04/2023 04/06/2024 Dyspnea on exertion 08/04/2023 11/20/19 Colon cancer screening 08/04/202311/17 Smoker 08/04/2023 04/06/2024 COPD exacerbation (CMS/HCC) 08/04/2023 08/09/2023 Preoperative examination 08/03/202206/2022 Assessment & Plan (08/05/2022 10:20 AM EDT): - Patient is scheduled for a low-intermittent risk procedure. Patient is considered moderate to high risk patient. His functional level is 3-4 METs. Pt was already seen by his family assistant and french folder again in July 2022, and was cleared [...] Encounters Date Type Department Care Team Description 01/29/2025 Refill [facility] [address] [place] [address] Hallie Mcclendon MD Hypomagnesemia 01/20/2025 10:00 AM EST Office Visit [facility] MEDICINE [address] [place] [id number] Hallie Mcclendon MD Heart failure with reduced ejection fraction (HCC) (Primary Dx); Encounter for immunization; Encounter for vaccination; Dietary counseling; Exercise counseling; Overweight; Venous insufficiency; Primary hypertension; Hypomagnesemia; Elevated PSA; Undifferentiated schizophrenia (CMS/HCC) (HCC); Pulmonary fibrosis (HCC); 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) (HCC) 01/20/2025 Telephone [facility] [address] [place] [phone] Hallie Mcclendon MD Record Request 01/20/2025 Travel 01/17/2025 Telephone [facility] [address] [place] [phone] Hallie Mcclendon MD chartprep 12/31/2024 Refill [facility] [address] [place] [phone] Hallie Mcclendon MD Hypomagnesemia 12/30/2024 Refill [facility] [address] [place], [place] [id number] Hallie Mcclendon MD Anemia, unspecified type; Hypomagnesemia 12/19/2024 Telephone [facility] MEDICINE [address] [place] [address] Hallie Mcclendon MD FYI 12/04/2024 Telephone [facility] MEDICINE [address] [place] [address] Hallie Mcclendon MD fyi 12/03/2024 Refill [facility] PEDIATRICS [address] [place] [address] Hallie Mcclendon MD Hypomagnesemia 12/03/2024 Orders Only GENERIC EXTERNAL DATA DEPARTMENT Provider, Generic External Data from Last 3 Months Immunizations Immunization Administration [...] surface antigen) 12/18/2014,12/27/2011 Pfizer Covid-19 Vaccine 12+ 01/20/2025, 5,03/30/2023 Pfizer Covid-19 Vaccine 12+ Bivalent 03/21/2022 Pneumococcal [...] Last Done Comments SDOH Screening 07/09/2025 07/09/2024 COVID-19 Vaccine ( season) 2025 01/20/2025, 04/10/2024, 03/30/2023, Additional history exists Diabetes: Hemoglobin A1C 10/16/2025 025, 04/02/2024, 04/05/2023, [...] or older Completed 08/15/2023 Influenza Vaccine Completed 01/20/2025, , 03/30/2023, Additional [...] included. Magnesium 1.7 1.6 - 2.6 mg/dL [facility] Blood Venous blood specimen / Unknown 12/05/2024 9:52 AM EDT 12/05/2024 9:52 AM EDT Hallie Mcclendon MD LAB BLOOD ORDERABLES Final Resul t Performing Organization Address [facility] Co de Phone Number [facility] [address] [place] [phone] * (ABNORMAL) Basic Metabolic Panel (12/05/2024 9:52 AM EDT) Sodium 143 135 - 145 mmol/L [facility] Potassium 3.5 3.3 - 5.1 mmol/L [facility] Chloride 109(H) 96 - 108 mmol/L [facility] Carbon Dioxide 24 22 - 29 mmol/L [facility] Anion Gap 14 12 - 20 [facility] Urea Nitrogen (BUN) 14 9 - 16 mg/dL [facility] Creatinine, Serum 0.95 0.5 - 1.4 mg/dL [facility] Estimated Glomerular Filt Rate >60 [facility] Comment:Chronic Kidney Disea se: Estimated GFR < 60 mL/min/1.69v6Ysbkli Kidney Disease: Estimated GFR < 15 mL/min/1.73m2 Glucose 169(H) 60 - 115 mg/dL [facility] Calcium 8.8 8.4 - 10.2 mg/dL [facility] Blood Venous blood specimen / Unknown 12/05/2024 9:52 AM EDT 12/05/2024 9:52 AM EDT us Hallie Mcclendon MD LAB BLOOD ORDERABLES Final Resul t Performing Organization Address City/[facility]/ZIP Co de Phone Number [facility] [address] [place] [phone] * TSH W/Reflex to FT4 (12/03/2024 11:26 AM EDT) TSH reflex Free T4 1.97 0.32 - 4.0 uIU/mL [facility] Blood Venous blood specimen / Unknown 12/03/2024 11:26 AM EDT 12/03/2024 11:26 AM EDT us Hallie Mcclendon MD LAB BLOOD ORDERABLES Final Resul t Performing Organization Address [facility]/ZIP Co de Phone Number [facility] [address] [place] [phone] * (ABNORMAL) PSA, Total With Reflex to PSA, Free (12/03/2024 11:26 AM EDT) PSA,Total (Free>4and<10) 64.19(H ) 0.00 - 4.00 ng/mL [facility] Comment:A Free PSA was not [...] ORDERAB LES Final Result Performing Organization Address [facility]/ZIP Co de Phone Number [facility] [address] [place] [phone] * Lipid Panel with Reflex to Direct LDL (12/03/2024 11:26 AM EDT) Triglycerides 106 <150 mg/dL [facility] Comment:Desirable Triglyceri de: less than 150 mg/dLBorderline High Triglyceride 150-199 mg/dLHigh Triglyceride: 200-499 mg/dLVery High Triglyceride: greater than or equal to 5OO mg/dL Cholesterol 116 <200 mg/dL [facility] Comment:Desirable Cholestero l: less than 200 mg/dLBorderline High Cholesterol: 200-239 mg/dLHigh Cholesterol: greater than 239 mg/dL LDL Cholesterol Calculated 53 <100 mg/dL [facility] Comment:Desirable LDL: less than 100 mg/dLNear Optimal/Above Optimal LDL: 110- 129 mg/dLBorderline High LDL: 130-159 mg/dLHigh LDL: 160-189 mg/dLVery High LDL: greater than or equal to 190 mg/dL HDL Cholesterol 42 >40 mg/dL [facility] Comment:Desirable HDL: great er than 40 mg/dL Note: This HDL assay may give artificially low results in patients with liver disease. Blood 12/03/2024 11:2 6 AM EDT 12/03/2024 11:26 AM EDT us Hallie Mcclendon MD LAB BLOOD ORDERABLES Final Resul t [facility] [address] [place] [phone] * (ABNORMAL) Comprehensive Metabolic Panel (12/03/2024 11:26 AM EDT) Sodium 141 135 - 145 mmol/L [facility] Potassium 3.4 3.3 - 5.1 mmol/L [facility] Chloride 108 96 - 108 mmol/L [facility] Carbon Dioxide 24 22 - 29 mmol/L [facility] Anion Gap 12 12 - 20 [facility] Urea Nitrogen (BUN) 14 9 - 16 mg/dL [facility] Creatinine, Serum 0.98 0.5 - 1.4 mg/dL [facility] Estimated Glomerular Filt Rate >60 [facility] Comment:Chronic Kidney Disea se: Estimated GFR < 60 mL/min/1.17b6Ehkamd Kidney Disease: Estimated GFR < 15 mL/min/1.73m2 Glucose 129(H) 60 - 115 mg/dL [facility] Calcium 8.9 8.4 - 10.2 mg/dL [facility] Bilirubin, Total 1.4(H) 0.0 - 1.0 mg/dL [facility] Aspartate Amino Transferase 34 5 - 37 U/L [facility] Alanine Aminotransferase 14 0 - 40 U/L [facility] Total Protein 7.0 6.5 - 8.0 g/dL [facility] Albumin Level 4.3 3.5 - 5.0 g/dL [facility] Alkaline Phosphatase 53 39 - 117 U/L [facility] Blood Venous blood specimen / Unknown 12/03/2024 11:26 AM EDT 12/03/2024 11:26 AM EDT us Hallie Mcclendon MD LAB BLOOD ORDERABLES Final Resul t Performing Organization Address [facility] Co de Phone Number [facility] [address] [place] [phone] * Hemoglobin A1c (10/16/2024 10:37 AM EDT) Hemoglobin A1c 5.9 <6.0 % [facility] Comment:Hemoglobin A1C Refer ence Range Adults: 4.8 - 6.0 % Non diabetic: < 6.0 % Goal: < 7.0 %Additional Action Suggested: > 8.0 %Note: Hemoglobin A1c results are invalid for patients with abnormal amounts of HbF. Blood transfusions may impact the HbA1c concentration in the patient sample. Estimated Average Glucose 123 mg/dL [facility] Comment:eAG = Estimated ave rage glucose which is %A1C expressed asaverage glucose, using the formula of the F3M-QytxnocXjyaoeo Glucose study (ADAG), Diabetes Care, Vol.31,#8,Oct. 2007 Blood Venous blood specimen / Unknown 10/16/2024 10:37 AM EDT 10/16/2024 11:14 AM EDT us Alem Corley NP LAB BLOOD ORDERABLES Final Resu lt Performing Organization Address [facility]/ZIP Co de Phone Number [facility] [address] [place] [phone] from Last 3 Months or Most Recently Relevant to Health Maintenance Insurance [employer] (HMO D-SNP) YUNIOR THAKKAR [id number] Care Teams Front Office Medical Assistant Relationship Specialty Start Date End Date Hallie Mcclendon MD [address] [place] [phone] PCP - General Family Medicine 03/13/18 [facility] 07/05/19
--- OUTSIDE RECORDS SUMMARY | 2025-02-13 08:16 | XMS_ITS | Encounter Summary ---
Author Organization [employer] Address [address] [facility] 7t [place] [address] Care Team Providers Care Director Of Cath Lab Name Role Phone Hallie Mcclendon MD Primary Care Provider [phone] Reason for Visit * Reason Onset Date Comments Med Refill 08/12/2024 Encounter Details Date Type Department Care Team ([facility] st Contact Info) Description 08/12/2024 Telephone [facility] MEDICINE [address] [place], [place] [phone] Hallie Mcclendon MD [address] [place], [place] [phone] Med Refill Social History Tobacco Use Types [...] 10:26 AM EDT Medication was sent to [facility] on 07/30/24 #90 with 3 refills. * Telephone Encounter - Wally Garcia - 08/12/2024 10:14 AM EDT TC from pt requesting medication refill. Medications needing refill: omeprazole (PriLOSEC) [address] capsule Multiple Vitamin (Multivitamin) tablet To be sent to: [facility] - [place], [place] - [address] [place] [address] documented in this encounter Plan of Treatment Not on file documented as of this encounter Visit Diagnoses Not on filedocumented in this encounter Additional Health Concerns Assessment Noted Time PHQ-9 Depression Total Score: 0 11/20/19 24 9:22 AM EDT documented as of this encounter Care Teams Director Of Cath Lab Relationship Specialty Start Date End Date Hallie Mcclendon MD [address] [facility] [place] [address] PCP - General Family Medicine 03/13/18 [facility] 07/05/19 documented as of this encounter
--- OUTSIDE RECORDS SUMMARY | 2025-02-13 08:16 | XMS_ITS | Encounter Summary ---
Author Organization [employer] Address [address] [facility] 7t [place] [address] Care Team Providers Care Erp Analyst Name Role Phone Hallie Mcclendon MD Primary Care Provider [phone] Reason for Visit * Reason Comments Med Refill Encounter Details Date Type Department Care Team ([facility] st Contact Info) Description 05/14/2024 Refill [facility] MEDICINE [address] [place], [place] [phone] Hallie Mcclendon MD [address] [place], [place] [phone] Social History Tobacco Use Types Packs/Day Years [...] documented as of this encounter Care Teams Erp Analyst Relationship Specialty Start Date End Date Hallie Mcclendon MD [address] [place] [phone] PCP - General Family Medicine 03/13/18 [facility] 07/05/19 documented as of this encounter
--- OUTSIDE RECORDS SUMMARY | 2025-02-13 08:16 | XMS_ITS | Encounter Summary ---
Author Organization [employer] Address [address] [facility] [address] [place] [address] Care Team Providers Care Housekeeping Lead Name Role Phone Hallie Mcclendon MD Primary Care Provider [phone] Reason for Visit * Reason Comments Med Refill Encounter Details Date Type Department Care Team ([facility] st Contact Info) Description 07/13/2023 Refill [facility] MEDICINE [address] [place], [place] [phone] Hallie Mcclendon MD [address] [place], [place] [phone] Constipation, unspecified constipation type Social History Tobacco [...] type documented in this encounter Care Teams Housekeeping Lead Relationship Specialty Start Date End Date Hallie Mcclendon MD [address] [place] [address] PCP - General Family Medicine 03/13/18 [facility] 07/05/19 documented as of this encounter
--- OUTSIDE RECORDS SUMMARY | 2025-02-13 08:16 | XMS_ITS | Encounter Summary ---
Author Organization [employer] Address [address] [facility] 7t [place] [address] Care Team Providers Care Cad Librarian Name Role Phone Hallie Mcclendon MD Primary Care Provider [phone] Encounter Details Date Type Department Care Team ([facility] st Contact Info) Description 04/05/2024 Orders Only [facility] MEDICINE [address] [place] [address] Hallie Mcclendon MD [address] [place] [address] Social History Tobacco Use Types Packs/Day Years [...] documented as of this encounter Care Teams Cad Librarian Relationship Specialty Start Date End Date Hallie Mcclendon MD [address] [place] [phone] PCP - General Family Medicine 03/13/18 [facility] 07/05/19 documented as of this encounter
--- OUTSIDE RECORDS SUMMARY | 2025-02-13 08:17 | XMS_ITS | Encounter Summary ---
Author Organization [employer] Address [address] [facility] 7t [place] [address] Care Team Providers Care City Jailer Name Role Phone Hallie Mcclendon MD Primary Care Provider [phone] Reason for Visit * Reason Onset Date Comments Med Refill 09/15/2023 Encounter Details Date Type Department Care Team ([facility] st Contact Info) Description 09/15/[address] [facility] MEDICINE [address] [place], [place] [phone] Hallie Mcclendon MD [address] [place], [place] [phone] Med Refill Social History Tobacco Use Types [...] 1000MG capsule capsule To be sent to: [facility] - [place], [place] - [address] [place] [address] documented in this encounter Plan of Treatment Not on file documented as of this encounter Visit Diagnoses Not on filedocumented in this encounter Additional Health Concerns Assessment Noted Time PHQ-9 Depression Total Score: 0 08/09/19 24 9:27 AM EDT documented as of this encounter Care Teams City Jailer Relationship Specialty Start Date End Date Hallie Mcclendon MD [address] [facility] [place] [address] PCP - General Family Medicine 03/13/18 [facility] 07/05/19 documented as of this encounter
--- OUTSIDE RECORDS SUMMARY | 2025-02-13 08:17 | XMS_ITS | Encounter Summary ---
Author Organization [email or web address] Address [address] [facility] 7t [place] [address] Care Team Providers Care Sander Setter Name Role Phone Hallie Mcclendon MD Primary Care Provider [phone] Reason for Visit * Reason Comments Med Refill Encounter Details Date Type Department Care Team (Late st Contact Info) Description 06/14/2022 Refill [facility] [address] [place], [place] [phone] Hallie Mcclendon MD [address] [place], [place] [phone] Anemia in other chronic diseases classified elsewhere [...] elsewhere documented in this encounter Care Teams Sander Setter Relationship Specialty Start Date End Date Hallie Mcclendon MD [address] [place], [place] [phone] PCP - General Family Medicine 03/13/18 [facility] 07/05/19 documented as of this encounter
--- OUTSIDE RECORDS SUMMARY | 2025-02-13 08:17 | XMS_ITS | Encounter Summary ---
Author Organization [employer] Address [address] [facility] 7t [place] [address] Care Team Providers Care Reservoir Engineering Consultant Name Role Phone Hallie Mcclendon MD Primary Care Provider [phone] Encounter Details Date Type Department Care Team (Late st Contact Info) Description 12/09/2022 Orders Only [facility] MEDICINE [address] [place] [address] Hallie Mcclendon MD [address] [place] [address] Hematemesis, unspecified whether nausea present (Primary Dx); [...] B12 >2,000(H ) 200 - 900 pg/mL [facility] Comment:NORMAL 200-900 PG/ML INDETERMINATE 160-199 PG/ML DEFICIENT < 160 PG/ML Folate 10.6 > or = 4.0 ng/mL [facility] Comment:Reference Values:> o r = 4.0 ng/mL< 4.0 ng/mL suggests folate deficiency Methotrexate, aminopterin and folinic acid(leucovorin) are chemotherapeutic agents whose molecularstructures are similar to folate; therefore, the Architectfolate assay cannot be used for patients using these drugs. 12/13/2022 10:0 7 AM EDT 12/13/2022 10:07 AM EDT Hallie Mcclendon MD LAB BLOOD ORDERABLES Final Resul t Performing Organization Address City/[facility] Co de Phone Number [facility] [address] [place] [phone] * (ABNORMAL) Iron And Total Iron Binding Capacity (12/13/2022 10:07 AM EDT) Iron 131 45 - 160 mcg/dL [facility] Total Iron Binding Capacity 251 228 - 428 mcg/dL [facility] Percent Iron Saturation 52(H) 15 - 50 % [facility] Unsaturated Iron Binding 120 ug/dL [facility] Blood Venous blood specimen / Unknown 12/13/2022 10:07 AM EDT 12/13/2022 10:07 AM EDT us Hallie Mcclendon MD LAB BLOOD ORDERABLES Final Resul t Performing Organization Address [facility] Co de Phone Number [facility] [address] [place] [phone] * (ABNORMAL) Ferritin (12/13/2022 10:07 AM EDT) Ferritin 506(H) 20 - 250 ng/mL [facility] Blood Venous blood specimen / Unknown 12/13/2022 10:07 AM EDT 12/13/2022 10:07 AM EDT Hallie Mcclendon MD LAB BLOOD ORDERABLES Final Resul t Performing Organization Address City/[facility] Co de Phone Number [facility] [address] [place] [phone] * T4, Free (12/13/2022 10:07 AM EDT) Free T4 (Free Thyroxine) 0.90 0.71 - 1.85 ng/dL [facility] Blood Venous blood specimen / Unknown 12/13/2022 10:07 AM EDT 12/13/2022 10:07 AM EDT Hallie Mcclendon MD LAB BLOOD ORDERABLES Final Resul t Performing Organization Address City/[facility]/ZIP Co de Phone Number [facility] [address] [place] [phone] * TSH (12/13/2022 10:07 AM EDT) Thyroid Stimulating Hormone 2.54 0.32 - 4.0 uIU/mL [facility] Comment:TSH 3rd Generation ( [facility]) Blood Venous blood specimen / Unknown 12/13/2022 10:07 AM EDT 12/13/2022 10:07 AM EDT Hallie Mcclendon MD LAB BLOOD ORDERABLES Final Resul t Performing Organization Address City/[facility]/ZIP Co de Phone Number [facility] [address] [place] [phone] * Hemoglobin A1c (12/13/2022 10:07 AM EDT) Hemoglobin A1c 5.7 <6.0 % [facility] Comment:Hemoglobin A1C Refer ence Range Adults: 4.8 - 6.0 % Non diabetic: < 6.0 % Goal: < 7.0 %Additional Action Suggested: > 8.0 %Note: Hemoglobin A1c results are invalid for patients with abnormal amounts of HbF. Blood transfusions may impact the HbA1c concentration in the patient sample. Estimated Average Glucose 117 mg/dL [facility] Comment:eAG = Estimated ave rage glucose which is %A1C expressed asaverage glucose, using the formula of the E7R-RxdasepFwwilnj Glucose study (ADAG), Diabetes Care, Vol.31,#8,Oct. 2007 Blood Venous blood specimen / Unknown 12/13/2022 10:07 AM EDT 12/13/2022 10:07 AM EDT us Hallie Mcclendon MD LAB BLOOD ORDERABLES Final Resul t [facility] [address] [place] [phone] [phone] * (ABNORMAL) Comprehensive Metabolic Panel (12/13/2022 10:07 AM EDT) Sodium 139 135 - 145 mmol/L [facility] Potassium 3.8 3.3 - 5.1 mmol/L [facility] Chloride 106 96 - 108 mmol/L [facility] Carbon Dioxide 24 22 - 29 mmol/L [facility] Anion Gap 13 12 - 20 [facility] Urea Nitrogen (BUN) 21(H) 9 - 16 mg/dL [facility] Creatinine, Serum 1.06 0.5 - 1.4 mg/dL [facility] Estimated Glomerular Filt Rate >60 [facility] Comment:NOTE: For -Am erican individuals, multiply the result by 1.210.Chronic Kidney Disease: Estimated GFR < 60 mL/min/1.57d4Menqzk Kidney Disease: Estimated GFR < 15 mL/min/1.73m2 Glucose 104 60 - 115 mg/dL [facility] Calcium 10.3(H) 8.4 - 10.2 mg/dL [facility] Bilirubin, Total 0.5 0.0 - 1.0 mg/dL [facility] Aspartate Amino Transferase 25 5 - 37 U/L [facility] Alanine Aminotransferase 24 0 - 40 U/L [facility] Total Protein 7.6 6.5 - 8.0 g/dL [facility] Albumin Level 4.3 3.5 - 5.0 g/dL [facility] Alkaline Phosphatase 88 39 - 117 U/L [facility] Blood Venous blood specimen / Unknown 12/13/2022 10:07 AM EDT 12/13/2022 10:07 AM EDT us Hallie Mcclendon MD LAB BLOOD ORDERABLES Final Resul t [facility] [address] [place], [place] [phone] * (ABNORMAL) CBC auto differential (12/13/2022 10:07 AM EDT) White Blood Count 8.1 4.8 - 10.8 X10*3/uL [facility] Red Blood Count 5.15 4.60 - 5.80 X10*6/uL [facility] Hemoglobin 15.5 14.0 - 18.0 g/dl [facility] Hematocrit 45.7 42.0 - 52.0 % [facility] Mean Corpuscular Volume 88.7 80.0 - 98.0 fL [facility] Mean Corpuscular Hemoglobin 30.1 27.0 - 33.0 pg [facility] Mean Corpuscular HGB Conc 33.9 31.0 - 36.0 g/dl [facility] Red Cell Distribution Width 12.7 11.0 - 16.0 % [facility] Platelet Count 182 160 - 400 X10*3/uL [facility] Mean Platelet Volume 10.5 9.4 - 12.4 fL [facility] Neutrophils Percent Auto 55.1 45 - 73 % [facility] Imm Gran Pct Auto 0.2 0.0 - 0.4 % [facility] Lymphocytes Percent Auto 30.2 20 - 40 % [facility] Monocytes Percent Auto 6.5 2 - 11 % [facility] Eosinophils Percent Auto 7.5(H) 0 - 4 % [facility] Basophils Percent Auto 0.5 0 - 2 % [facility] NRBC Pct Auto 0.0 0.0 - 0.2 /100WBC [facility] Neutrophils Absolute Auto 4.5 2.0 - 8.3 x10*3/uL [facility] Imm Gran Abs Auto 0.02 0.00 - 0.03 X10*3/uL [facility] Lymphocytes Absolute Auto 2.5 1.2 - 4.9 X10*3/uL [facility] Monocytes Absolute Auto 0.5 0.1 - 1.2 X10*3/uL [facility] Eosinophils Absolute Auto 0.6(H) 0.0 - 0.4 X10*3/uL [facility] Basophils Absolute Auto 0.0 0.0 - 0.2 X10*3/uL [facility] NRBC Abs Auto 0.000 0.0 - 0.012 X10*3/uL [facility] Blood Venous blood specimen / Unknown 12/13/2022 10:07 AM EDT 12/13/2022 10:07 AM EDT Hallie Mcclendon MD LAB BLOOD ORDERABLES Final Resul t Performing Organization Address City/[facility]/ZIP Co de Phone Number [facility] [address] [place] [phone] * B Type Natriuretic Peptide (BNP) (12/13/2022 10:07 AM EDT) B Type Natriuretic Peptide <10 <100 pg/mL [facility] Comment:For those patients w ho are being treated with Natrecor(nesiritide, recombinant BNP), BNP testing should beperformed at least two hours post treatment in order toensure that only endogenous levels of BNP are detected. Blood Venous blood specimen / Unknown 12/13/2022 10:07 AM EDT 12/13/2022 10:07 AM EDT Hallie Mcclendon MD LAB BLOOD ORDERABLES Final Resul t Performing Organization Address City/[facility]/ZIP Co de Phone Number [facility] [address] [place] [phone] documented in this encounter Visit Diagnoses Diagnosis Hematemesis, unspecified whether nausea present- Primary Heart failure with reduced ejection fraction (HCC) Dyslipidemia Other and unspecified hyperlipidemia Elevated TSH Other abnormal blood chemistry Class 1 obesity due to excess calories with serious comorbidity and body mass index (BMI) of 31.0 to 31.9 in adult documented in this encounter Care Teams Reservoir Engineering Consultant Relationship Specialty Start Date End Date Hallie Mcclendon MD [address] [place] [address] PCP - General Family Medicine 03/13/18 [facility] 07/05/19 documented as of this encounter
--- OUTSIDE RECORDS SUMMARY | 2025-02-13 08:17 | XMS_ITS | Encounter Summary ---
Author Organization [employer] Address [address] [facility] 7t [place] [address] Care Team Providers Care Property Officer Name Role Phone Hallie Mcclendon MD Primary Care Provider [phone] Encounter Details Date Type Department Care Team ([facility] st Contact Info) Description 04/27/2023 Orders Only [facility] MED[facility]INE [address] [place] [address] Hallie Mcclendon MD [address] [place] [address] Social History Tobacco Use Types Packs/Day Years [...] on filedocumented in this encounter Care Teams Property Officer Relationship Specialty Start Date End Date Hallie Mcclendon MD [address] [place] [address] PCP - General Family Medicine 03/13/18 [facility] 07/05/19 documented as of this encounter
--- OUTSIDE RECORDS SUMMARY | 2025-02-13 08:17 | XMS_ITS | Encounter Summary ---
Author Organization [employer] Address [address] [facility] 7t [place] [address] Care Team Providers Care Public Health Director Name Role Phone Hallie Mcclendon MD Primary Care Provider [phone] Reason for Visit * Reason Onset Date Comments FYI 12/19/2024 Encounter Details Date Type Department Care Team ([facility] st Contact Info) Description 12/19/2024 Telephone [facility] MEDICINE [address] [place], [place] [phone] Hallie Mcclendon MD [address] [place], [place] [phone] FYI Social History Tobacco Use Types Packs/Day [...] - 12/19/2024 12:39 PM EDT Tc from [place] with [facility] wanted to report that when visited pt [...] documented as of this encounter Care Teams Public Health Director Relationship Specialty Start Date End Date Hallie Mcclendon MD [address] [place] [address] PCP - General Family Medicine 03/13/18 [facility] 07/05/19 documented as of this encounter
--- OUTSIDE RECORDS SUMMARY | 2025-02-13 08:17 | XMS_ITS | Encounter Summary ---
Author Organization [employer] Address 75 [facility] 7t [place] [address] Care Team Providers Care Top Collar Maker Name Role Phone Hallie Mcclendon MD Primary Care Provider [phone] Encounter Details Date Type Department Care Team (Late st Contact Info) Description 04/01/2022 Orders Only [facility] MEDICINE [address] [place] [address] Yuliana Barrios, RN Social History Tobacco Use [...] on filedocumented in this encounter Care Teams Top Collar Maker Relationship Specialty Start Date End Date Hallie Mcclendon MD [address] [place] [address] PCP - General Family Medicine 03/13/18 [facility] 07/05/19 documented as of this encounter
--- OUTSIDE RECORDS SUMMARY | 2025-02-13 08:17 | XMS_ITS | Encounter Summary ---
Author Organization [employer] Address 75 [facility] 7t [place] [address] Care Team Providers Care Voice Writing Reporter Name Role Phone Hallie Mcclendon MD Primary Care Provider [phone] Reason for Referral * Consultation (Routine) - Canceled Specialty Diagnoses / Procedures Referred By Mya t Referred To Contact Pharmacy Diagnoses Hospital discharge follow-up Hallie Mcclendon MD [address] [place] [address] Phone: tel: fax: Referral ID Status Reason Start Date Expiration Date V isits Requested Visits Authorized [id number] Canceled Continuity of Care 07/10/2024 07/10/2025 6 6 Reason for Visit * Reason Onset Date Comments Call Back Request 07/10/2024 Encounter Details Date Type Department Care Team ([facility] st Contact Info) Description 07/10/2024 Telephone [facility]INE [address] [place], [place] [phone] Hallie Mcclendon MD [address] [place], [place] [phone] Call Back Request Social History Tobacco Use [...] month with the last one being at [facility], discharged on 07/09/2024. Pt was seen for [...] - 07/10/2024 11:19 AM EDT TC from [place] with [facility] requesting a call back regarding pt medication. Contact Jenae at [phone] documented in this encounter Plan of Treatment [...] documented as of this encounter Care Teams Voice Writing Reporter Relationship Specialty Start Date End Date Hallie Mcclendon MD [address] [place] [address] PCP - General Family Medicine 03/13/18 [facility] 07/05/19 documented as of this encounter
--- OUTSIDE RECORDS SUMMARY | 2025-02-13 08:17 | XMS_ITS | Encounter Summary ---
Author Organization [employer] Address 75 [facility] 7t [place] [address] Care Team Providers Care Agricultural Service Technician Name Role Phone Hallie Mcclendon MD Primary Care Provider [phone] Reason for Referral * Consultation (Routine) - Authorized Specialty Diagnoses / Procedures Referred By Contangel t Referred To Contact Pharmacy Diagnoses Hypertension Kiersten Burkett MD [address] [place] [address] Phone: tel: fax: Referral ID Status Reason Start Date Expiration Date Visits Requested Visits Authorized [id number] Authorized Continuity of Care 07/18/2024 07/18/2025 6 6 Encounter Details Date Type Department Care Team (Late st Contact Info) Description 07/17/2024 Orders Only [facility] MEDICINE 230 [place], [place] [phone] Kiersten Burkett MD [address] [place], [place] [phone] Hypertension (Primary Dx) Social History Tobacco Use [...] documented as of this encounter Care Teams Agricultural Service Technician Relationship Specialty Start Date End Date Hallie Mcclendon MD [address] [place] [address] PCP - General Family Medicine 03/13/18 [facility] 07/05/19 documented as of this encounter
--- OUTSIDE RECORDS SUMMARY | 2025-02-13 08:17 | XMS_ITS | Encounter Summary ---
Author Organization [employer] Address 75 [facility] 7t [place] [address] Care Team Providers Care Needle Control Cheniller Name Role Phone Hallie Mcclendon MD Primary Care Provider [phone] Reason for Visit * Reason Onset Date Comments FYI 09/26/2024 Encounter Details Date Type Department Care Team ([facility] st Contact Info) Description 09/26/2024 Telephone [facility] MEDICINE 230 [place], [place] [phone] Hallie Mcclendon MD 230 [place], [place] [phone] FYI Social History Tobacco Use Types Packs/Day [...] documented as of this encounter Care Teams Needle Control Cheniller Relationship Specialty Start Date End Date Hallie Mcclendon MD [address] [place] [address] PCP - General Family Medicine 03/13/18 [facility] 07/05/19 documented as of this encounter
--- OUTSIDE RECORDS SUMMARY | 2025-02-13 08:17 | XMS_ITS | Encounter Summary ---
Author Organization [employer] Address [address] [facility] 7t [place] [address] Care Team Providers Care Cnc Manager Name Role Phone Hallie Mcclendon MD Primary Care Provider [phone] Encounter Details Date Type Department Care Team (Late st Contact Info) Description 06/20/2022 Telephone [facility] MEDICINE [address] [place] [address] Hallie Mcclendon MD [address] [place], [place] [phone] Social History Tobacco Use Types Packs/Day Years [...] on filedocumented in this encounter Care Teams Cnc Manager Relationship Specialty Start Date End Date Hallie Mcclendon MD [address] [place] [address] PCP - General Family Medicine 03/13/18 [facility] 07/05/19 documented as of this encounter
--- OUTSIDE RECORDS SUMMARY | 2025-02-13 08:17 | XMS_ITS | Encounter Summary ---
Author Organization [employer] Address 75 [facility] 7t [place] [address] Care Team Providers Care Automatic Blocker Name Role Phone Hallie Mcclendon MD Primary Care Provider [phone] Reason for Visit * Reason Comments Med Refill Encounter Details Date Type Department Care Team ([facility] st Contact Info) Description 07/13/2023 Refill [facility] MEDICINE 230 [place], [place] [phone] Hallie Mcclendon MD [address] [place], [place] [phone] Constipation, unspecified constipation type Social History Tobacco [...] type documented in this encounter Care Teams Automatic Blocker Relationship Specialty Start Date End Date Hallie Mcclendon MD [address] [place] [address] PCP - General Family Medicine 03/13/18 [facility] 07/05/19 documented as of this encounter
--- OUTSIDE RECORDS SUMMARY | 2025-02-13 08:17 | XMS_ITS | Encounter Summary ---
Author Organization [employer] Address [address] [facility] 7t [place] [address] Care Team Providers Care Antique Automobiles Repairer Name Role Phone Hallie Mcclendon MD Primary Care Provider [phone] Reason for Referral * Consultation (Urgent) - Closed Specialty Diagnoses / Procedures Referred By Mya t Referred To Contact Orthopaedic Surgery Diagnoses Left forearm pain Fall, subsequent encounter Hallie Mcclendon MD [address] [place] [address] Phone: tel: fax: [facility] Orthopedics [address] [place] [address] Dr [address] [place] [address] Phone: tel: Referral ID Status Reason Start Date Expiration Date V isits Requested Visits Authorized [id number] Closed Specialty Services Required 09/22/2023 09/21/2024 1 1 Encounter Details Date Type Department Care Team (Late st Contact Info) Description 09/22/2023 Orders Only [facility] MEDICINE 230 [place], [place] [phone] Hallie Mcclendon MD [address] [place], [place] [phone] Left forearm pain (Primary Dx); Fall, subsequent [...] documented as of this encounter Care Teams [employer] Repairer Relationship Specialty Start Date End Date Hallie Mcclendon MD [address] [place] [address] PCP - General Family Medicine 03/13/18 [facility] 07/05/19 documented as of this encounter
[2025-02-13] MEDS: Lidocaine HCl 1 % MPF 5 ML VIAL 10 ML SUBCUT (09:12)
== END 2025-02-13 08:08 | disposition home or self-care (01) ==
LOC: HO.US 08:07
PROVIDERS: PCP Family Medicine; Visit Provider Urology
DX: R97.20 Elevated prostate specific antigen [PSA] (principal); Z01.84 Encounter for antibody response examination
CPT/HCPCS: 55700; 76942; 88305; 88342; 88344; J2003

== ENCOUNTER 2025-02-27 14:32 | Outpatient (AMB) | payer OTHER, SELFPAY ==
--- NOTE | 2025-02-27 14:38 | MHC.OFFVIS ---
Intake Visit Reasons: Prostate bx results SET ( NO UA) Intake Note: Reason for Visit: Prostate Biopsy Results Urology Meds: Vitamin C, Finasteride, Tamsulosin Blood Thinners: None Labs: PSA- 64.19 (12/03/24) Imaging: None Last PVR: None Allergies No Known Allergies Allergy (Verified 01/29/25 11:00) HPI Comments Details: Joseph is a pleasant male. He is a patient of Dr. Simpson. 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 Histologic type: Adenocarcinoma; focal ductal adenocarcinoma Histologic grade: [place] score: 4+4=8 (left base lateral 80%) 3+4=7 (left base medial 15%) 3+3=6 (left mid lateral 5%; left apex lateral 15% Periprostatic fat inv.: Suspicious Seminal vesicle inv.: Not identified Perineural inv.: Present (focal) LVI: Not identified Lower urinary tract symptoms Longstanding Primary complaint is nocturia with high elevated residual Responded well to tamsulosin and finasteride PSA - 05/01 6.0, 05/03 8.6, 05/04 11, 04/05 21, 11/03 16, 06/04 31 Prior biopsy performed for PSA 8 which was negative 2016 chronic inflammation - 09/02 MRI targeted biopsy - MAHESH no cancer Imaging 07/02 MRI - 120 gm prostate - 1 cm left lateral posterior PI-RADS 4 lesion PFSH Medical History Schizophrenia Hiatal hernia Opioid dependence, uncomplicated Tobacco use disorder Lung nodules COPD (chronic obstructive pulmonary disease) Undifferentiated schizophrenia Transient alteration of awareness ST segment depression Dizziness Memory impairment Chronic anemia Substance abuse Gallstones Smoker Depression Gastritis Esophagitis Asthma GERD (gastroesophageal reflux disease) HTN (hypertension) Surgical History History of esophagogastroduodenoscopy (EGD) Hx of colonoscopy History of prostate biopsy Family History Father No problems noted. Mother No problems noted. 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 Housing: House Are you a primary career advisor to a significant other at home: No Do you presently have visiting nurse or other home services: No Alcohol intake: never Patient Tobacco Use Status: Never used Tobacco Tobacco use type: Cigarette Cigarettes Per Day: 4 Second Hand Smoke Exposure: No Substance Use Type: Heroin service: No Current occupational status: unemployed and disabled Review of Systems Const Denies chills and Denies fever(s) Card Reports no additional complaints and Denies syncope Resp Denies cough GI Denies abdominal pain and Denies heartburn Reports as per HPI and Denies change in libido Neuro Denies syncope Psych Denies change in libido Endo Denies change in libido Physical Exam Const General: cooperative, healthy appearing, comfortable and no acute distress Orientation/consciousness: patient oriented x3 HEENT Face and sinus: Yes normal facial exam Mouth: moist mucous membranes Neck Neck: Yes normal visual inspection, Yes full ROM and Yes trachea midline Chest Chest palpation & inspection: normal inspection of the chest Resp Effort & Inspection: normal respiratory effort, able to speak in complete sentences and no respiratory distress GI Inspection: Yes normal to inspection Back/Spine/Pelvis Cervical Spine: normal cervical lordosis Thoracic/Lumbar Spine: thoracic and lumbar spine normal to inspection Skin General skin exam: no rashes or lesions noted Neuro General: patient oriented x3, gait normal, tone normal and moves all extremities Extrem General: Yes normal to inspection and Yes capillary refill normal Assessment & Plan Assessment & Plan (1) Hormone sensitive prostate cancer: Comment: 03/06 multi core high-grade positive PET scan Code(s): C61 - Malignant neoplasm of prostate; Z19.1 - Hormone sensitive malignancy status Category: Medical Plan Start 18 month GnRH Orders: Orders Testosterone, Total 3 Months C61 - Malignant neoplasm of prostate, Z19.1 - Hormone sensitive malignancy status Prostate Specific Antigen 3 Months C61 - Malignant neoplasm of prostate, Z19.1 - Hormone sensitive malignancy status Patient Instructions: This note is constructed using voice recognition software. While every effort has been made to ensure accuracy director script errors may have been included. Imaging studies, laboratory and physical exam results were discussed and reviewed in detail. No major barriers to patient understanding were identified. An opportunity to ask questions regarding the treatment plan was provided. All questions were answered. The patient expressed understanding and agreement with the above treatment plan. The patient is aware they should contact our office by phone for worsening of their current condition or the appearance of new urologic symptoms. Compliance is encouraged with any medications and followup testing that is ordered. It is a privilege to participate in the urologic care of your patient. If you have any questions or concerns regarding treatment for the above conditions, or other urologic issues, please do not hesitate to contact me. The office telephone contact is [phone]. Sincerely, Dr Stevie Molina MD, [facility] - Urology Compassionate Specialist Care for the Genitourinary System Coding Level of Care Code Est Pt Level 4 (74718) Add On Problem Visit Only Diagnoses Hormone sensitive prostate cancer C61; Z19.1
--- OUTSIDE RECORDS SUMMARY | 2025-02-27 18:43 | XMS_ITS | Encounter Summary ---
Author Organization [employer] Address 75 [facility] 7t [place] [address] Care Team Providers Care Implement Mechanic Name Role Phone Hallie Mcclendon MD Primary Care Provider [phone] Reason for Visit * Reason Onset Date Comments Med Refill 08/12/2024 Encounter Details Date Type Department Care Team ([facility] st Contact Info) Description 08/12/2024 Telephone [facility] MEDICINE [address] [place], [place] [phone] Hallie Mcclendon MD [address] [place], [place] [phone] Med Refill Social History Tobacco Use Types [...] 10:26 AM EDT Medication was sent to [facility] on 07/30/24 #90 with 3 refills. * Telephone Encounter - Wally Garcia - 08/12/2024 10:14 AM EDT TC from pt requesting medication refill. Medications needing refill: omeprazole (PriLOSEC) [address] capsule Multiple Vitamin (Multivitamin) tablet To be sent to: [facility] [place], [place] - [address] [place] [address] documented in this encounter Plan of Treatment Not on file documented as of this encounter Visit Diagnoses Not on filedocumented in this encounter Additional Health Concerns Assessment Noted Time PHQ-9 Depression Total Score: 0 11/20/19 24 9:22 AM EDT documented as of this encounter Care Teams Implement Mechanic Relationship Specialty Start Date End Date Hallie Mcclendon MD [address] [facility] [place] [address] PCP - General Family Medicine 03/13/18 [facility] 07/05/19 documented as of this encounter
--- OUTSIDE RECORDS SUMMARY | 2025-02-27 18:43 | XMS_ITS | Data Portability ---
Author Organization [employer] [facility], [employer] [facility] Address [address] [place] [address] Care Team Providers Care Napper Grinder Name Role Phone HIM CCA OTHER Unavailable OTHER ELIAN CHAVIRA Primary Care Provider [phone] Assessment Encounter Date Assessment Date Assessment LastModified [...] Assessment and Plan as documented by the Customer Energy Specialist. We discussed the diagnostic uncertainty of home visits and the risk associated with this. In this case I felt this to be an acceptable and reasonable amount of risk given the benefit of avoiding an ED visit. The patient given the opportunity to ask questions via Cameroonian language line deaf interpreter.. Advised if develops severe pain in the hand/ LUE/ if it becomes red / hot or cold blue or numb// hi fever advised to get rechecked immediately in the emergency department- he verbalized understanding of instructions to the medic via deaf interpreter [email or web address] Not available 01/01/2024 12:52:50 Plan of Treatment Reminders Order Date Submit Date Provider Last Modified By Organization Details Last Modified Time Details Appointments None recorded. Lab None recorded. Referral None recorded. Procedures None recorded. Surgeries None recorded. Imaging None recorded. Medication Orders acetaminoph en 500 mg tablet 2023 [email or web address] Not available 13:22:31 acetaminoph en 500 mg tablet 2023 [facility], [address] [place] [address], [id number], 15:34:02 Patient TargetsNo targets recorded. Patient InstructionsNo [...] Vitals Date Recorded Body temperature Oxygen saturation Heart rate Respiratory rate Body weight Respiratory rate Oxygen saturation Body temperature Heart rate Body weight Systolic And Diastolic Systolic And Diastolic Provider Name and Address Organization Details Last Updated DateTime 3 98.5 [degF] 99 % 82 /min 14 /min 92607.3 76 g 14 /min 99 % 98.5 [degF] 82 /min 88376.3 76 g 118/76 mm[Hg] 118/76 mm[Hg] Not Available [employer] - [employer] 3 12:23:06 Date Recorded Heart rate Body weight Respiratory rate Body temperature Body height Oxygen saturation Systolic And Diastolic Provider Name and Address Organization Details Last Updated DateTime 4 89 /min 80569.3 36 g 17 /min 98.2 [degF] 160.02 cm 96 % 114/82 mm[Hg] Not Available [employer] - production 4 12:55:59 Social History None recorded. Functional Status None recorded. Mental Status None recorded. Family History Nothing Reported. Medical History No medical history recorded. Past Encounters Encounter ID Performer Location Encounter Start Date Encounter Closed Date Diagnosis/Indication Diagnosis SNOMED-CT Code Diagnosis ICD10 Code Diagnosis IMO Codes Diagnosis Note [id number] Deshawn Stanton MD [facility] [address] [place] [address] [id number] 06/02/2022 12:06:33 06/06/2022 12:44:47 Strain of muscle of chest wall 667749939 S29.011A [id number] Joanne Smith MD [facility] [address] [place] [address] [id number] 01/01/2024 12:33:37 01/02/2024 10:13:23 Contusion of left thumb [id number] 1275255 S60.012A Advised to elevate/ advised ice / [...] Name 10/15/2023 1 [facility] - DOS PRIOR TO 2022 - DUAL ELIGIBLE (MEDICARE REPLACEMENT/ADV ANTAGE - HMO) Joseph Hicks [id number] Joseph Hicks 01/16/2024 1 [facility] - DOS ON OR AFTER 2022 - DUAL ELIGIBLE - FDC OPTIONS AND ONE CARE (MEDICARE REPLACEMENT/ADV ANTAGE - HMO) Joseph Hicks [id number] Joseph Hicks Notes Date Note Type Note Provider Name and Address Organization Details Recorded Time 06/02/2022 text/html HPI: Spoke with member via Cameroonian int #[id number] requesting [facility] visit for eval R sided upper back and chest area since yesterday s/p turned to take seatbelt off. No OTC's States pain resolved would just like it checked Deny SOB or N/V. Discuss if symptoms return/progress to seek emergent care call 911/-verbalize understanding. Verify member identity name/- .................... .................... .................... .................... .................... .................... .................... . Customer Energy Specialist Note From Pedro Pablo Holland: Pt requested [...] .................... . Disposition: Kevin Stanton MD [address] [facility],[address], [place], [phone], [employer] 06/02/2022 18:07:45 01/01/2024 text/html ROS as noted [...] .................... .................... .................... .................... .................... .................... . Customer Energy Specialist Note From Mauricio Katz: [facility] makes pt contact 83 yo M CC of swelling to left thumb.[facility] obtains consent and uploads electronically. PT vitals obtained. [facility] uses interpretation services due to language [...] denies blood thinners or any recent traumas. [facility] contacts [facility] and [...] of acetaminophen sent to his pharmacy at [facility]. PT is advised to use ice [...] then he may need imaging. PT understands [facility] clear. .................... .................... .................... .................... .................... .................... [...] to psychiatric meds Joanne Smith MD [address] [facility],[address], [place], [address], [employer] 01/01/2024 14:47:58
--- OUTSIDE RECORDS SUMMARY | 2025-02-27 18:44 | XMS_ITS | Encounter Summary ---
Author Organization [employer] Address [address] [place] [address] Care Team Providers Care Travel Accommodation Inspector Name Role Phone Hallie Mcclendon MD Primary Care Provider [phone] Reason for Referral * Consultation (Routine) - Authorized Specialty Diagnoses / Procedures Referred By Contangel t Referred To Contact Pharmacy Diagnoses Hypertension Kiersten Burkett MD [address] [place] [address] Phone: tel: fax: Referral ID Status Reason Start Date Expiration Date Visits Requested Visits Authorized [id number] Authorized Continuity of Care 07/18/2024 07/18/2025 6 6 Encounter Details Date Type Department Care Team (Late st Contact Info) Description 07/17/2024 Orders Only [facility] MEDICINE [address] [place], [place] [phone] Kiersten Burkett MD [address] [place], [place] [phone] Hypertension (Primary Dx) Social History Tobacco Use [...] documented as of this encounter Care Teams Travel Accommodation Inspector Relationship Specialty Start Date End Date Hallie Mcclendon MD [address] [place] [address] PCP - General Family Medicine 03/13/18 [facility] 07/05/19 documented as of this encounter
--- OUTSIDE RECORDS SUMMARY | 2025-02-27 18:44 | XMS_ITS | Clinical Summary ---
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 09/11/19 24 Active atorvastatin (Lipitor) 40 MG tablet Take [...] MOUTH EVERY MORNING 90 capsule 3 5 8:23 AM EST 07/31/19 25 Active cholecalcifero l VITAMIN D (Vitamin D-3) 50 MCG (1999 UT) tabletIndicati ons:Vitamin deficiency TAKE 1 TABLET BY MOUTH EVERY MORNING 30 tablet 5 5 8:23 AM EST 10/12/19 25 Active omega-3 acid ethyl esters [...] EVERY MORNING 30 tablet 01/02/20 25 Active magnesium oxide (Mag-Ox) 400 (240 Mg) MG tabletIndicati ons:Hypomagnes emia TAKE 1 TABLET BY MOUTH EVERY OTHER DAY 15 tablet 3 01/30/20 Active alendronate (Fosamax) 70 MG tablet take 1 tablet by mouth once a week with 6 to 8 oz of water 30 min before first food of day. do not lie down for 30 minutes 4 tablet 11 02/27/20 25 Active alendronate (Fosamax) 70 MG tablet take 1 tablet once a week with 6 to 8 oz of water 30 min before first food of day. do not lie down for 30 minutes 4 tablet 11 5:48 PM EST 03/18/19 25 025 Discontinued magnesium oxide (Mag-Ox) 400 MG tabletIndicati ons:Hypomagnes emia Take 1 tablet (400 mg) by mouth every other day. 15 tablet 01/01/20 25 025 Active Problems Problem Noted Date Diagnosed [...] (01/31/2025 5:59 AM EST): - [facility] with [facility] smoking 1 year ago Assessment & Plan (10/28/2024 5:35 PM EDT): - following with [facility] smoking 7 months ago Assessment & Plan (04/06/2024 6:43 AM EST): - following with [facility] smoking 7 months ago Assessment & Plan (11/20/2023 10:12 AM EDT): - following with [facility] smoking 4 months ago Assessment & Plan (08/11/2023 6:11 PM EDT): - following with [facility] Family history of colon cancer 08/04/2023 GERD (gastroesophageal reflux disease) History of sphincterotomy of sphincter of Oddi 0 08/04/2023 Sessile colonic polyp 08/04/2023 Assessment & Plan (11/20/2023 10:15 AM EDT): - seen by [facility], and is being scheduled for colonoscopy in September 2023 Assessment & Plan (08/11/2023 6:12 PM EDT): - seen by [facility], and is being scheduled for colonoscopy [...] and right lower lobe. -recently seen by fine sander. Because there was no pulmonary nodule, surveillance [...] and right lower lobe. -recently seen by fine sander. Because there was no pulmonary nodule, surveillance [...] and right lower lobe. -recently seen by fine sander. Because there was no pulmonary nodule, surveillance [...] and right lower lobe. -recently seen by fine sander. 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 LVEF 30-35%. Moderate aortic regurgitation. -07/05/22 Echocardiogram results showed EF 25-30%. LV size and wall thickness are normal. Mid to distal, anterior, anteroseptal, and apical espino are akinetic. Mild aortic regurgitation. -07/04/23 echocardiogram: Mod global hypokynesis. [id number]%. Mild-to-mod aortic regurgitation. No . Mild thickening of anterior and posterior mitral valve leaflets. No pulmonary hypertension. -current medications: Entresto 49 mg-51 mg BID, aspirin 81 mg daily; metoprolol succinate 25 mg daily; furosemide 20 mg daily - Patient was evaluated for ICD / BiV Devices. Currently still being an option, but not urgent per tray casting machine operator. Reassess in 6 mo follow up and 12-mo TTE per tray casting machine operator. - Continuing optimizing risk factor management, medication adherence, and working on lifestyle modifications - Psychiatric medications cause prolonged QT. Monitor closely. Assessment & Plan (10/24/2024 4:10 PM EDT): -Netsuite Developer: RADHA, last seen in July 2023 -nuclear stress test in June 2021 which was not diagnostic for ischemia -09/08/21 TTE Moderate global hypokinesis. LVEF 30-35%. Moderate aortic regurgitation. -07/05/22 Echocardiogram results showed EF 25-30%. LV size and wall thickness are normal. Mid to distal, anterior, anteroseptal, and apical espino are akinetic. Mild aortic regurgitation. -07/04/23 echocardiogram: Mod global hypokynesis. [id number]%. Mild-to-mod aortic regurgitation. No . Mild thickening of anterior and posterior mitral valve leaflets. No pulmonary hypertension. -current medications: Entresto 49 mg-51 mg BID, aspirin 81 mg daily; metoprolol succinate 25 mg daily; furosemide 20 mg daily - Patient was evaluated for ICD / BiV Devices. Currently still being an option, but not urgent per tray casting machine operator. Reassess in 6 mo follow up and 12-mo TTE per tray casting machine operator. - Continuing optimizing risk factor management, medication adherence, and working on lifestyle modifications - Psychiatric medications cause prolonged QT. Monitor closely. Assessment & Plan (04/06/2024 7:07 AM EST): -Netsuite Developer: RADHA, last seen in July 2023 -nuclear stress test in June 2021 which was not diagnostic for ischemia -09/08/21 TTE Moderate global hypokinesis. LVEF 30-35%. Moderate aortic regurgitation. -07/05/22 Echocardiogram results showed EF 25-30%. LV size and wall thickness are normal. Mid to distal, anterior, anteroseptal, and apical espino are akinetic. Mild aortic regurgitation. -07/04/23 echocardiogram: Mod global hypokynesis. [id number]%. Mild-to-mod aortic regurgitation. No . Mild thickening of anterior and posterior mitral valve leaflets. No pulmonary hypertension. -current medications: Entresto 49 mg-51 mg BID, aspirin 81 mg daily; metoprolol succinate 25 mg daily; furosemide 20 mg daily - Patient was evaluated for ICD / BiV Devices. Currently still being an option, but not urgent per tray casting machine operator. Reassess in 6 mo follow up and 12-mo TTE per tray casting machine operator. - Continuing optimizing risk factor management, medication adherence, and working on lifestyle modifications - Psychiatric medications cause prolonged QT. Monitor closely. Assessment & Plan (11/20/2023 10:15 AM EDT): -Netsuite Developer: RADHA, last seen on 07/12/22. -nuclear stress test in June 2021 which was not diagnostic for ischemia -09/08/21 TTE Moderate global hypokinesis. LVEF 30-35%. Moderate aortic regurgitation. -07/05/22 Echocardiogram results showed EF 25-30%. LV size and wall thickness are normal. Mid to distal, anterior, anteroseptal, and apical espino are akinetic. Mild aortic regurgitation. -07/04/23 echocardiogram: Mod global hypokynesis. [id number]%. Mild-to-mod aortic regurgitation. No . Mild thickening of anterior and posterior mitral valve leaflets. No pulmonary hypertension. -current medications: Entresto 49 mg-51 mg BID, aspirin 81 mg daily; metoprolol succinate 25 mg daily - Patient was evaluated for ICD / BiV Devices. Currently still being an option, but not urgent per tray casting machine operator. Reassess in 6 mo follow up and 12-mo TTE per tray casting machine operator. - Continuing optimizing risk factor management, medication adherence, and working on lifestyle modifications - Psychiatric medications cause prolonged QT. Monitor closely. Assessment & Plan (08/09/2023 4:53 AM EDT): -Netsuite Developer: RADHA, last seen on 07/12/22. -nuclear stress [...] being an option, but not urgent per tray casting machine operator. Reassess in 6 mo follow up and 12-mo TTE per tray casting machine operator. - Continuing optimizing risk factor management, medication adherence, and working on lifestyle modifications - Psychiatric medications cause prolonged QT. Monitor closely. Assessment & Plan (03/30/2023 6:30 AM EST): -Netsuite Developer: RADHA, last seen on 07/12/22. -nuclear stress [...] being an option, but not urgent per tray casting machine operator. Reassess in 6 mo follow up and 12-mo TTE per tray casting machine operator. - Continuing optimizing risk factor management, medication adherence, and working on lifestyle modifications - Psychiatric medications cause prolonged QT. Monitor closely. Assessment & Plan (08/05/2022 11:37 AM EDT): -Netsuite Developer: RADHA, last seen on 07/12/22. -nuclear stress [...] being an option, but not urgent per tray casting machine operator. Reassess in 6 mo follow up and 12-mo TTE per tray casting machine operator. - Continuing optimizing risk factor management, [...] now interested in ICD or BiV Devices -Netsuite Developer: RADHA, last seen on 11/24/21 and 12/29/21. Referred for biventricular device placement evaluation. Pt declined ICD or BiV devices. Continuing medical management with Entresto. -nuclear stress test in June 2021 which was not diagnostic for ischemia -due to his low EF, pacemaker may be indicated -follow-up with tray casting machine operator as scheduled -continue working on lifestyle [...] - Consider intensifying statin therapy and/or changing [place] 3 to icosapent ethyl. Assessment & Plan [...] 20 mg at bedtime - last lab 2/9/23 TC 185; TG 557; HDL 31; LDL [...] EST): -followed by psychiatristDr. Vazquez at [facility] -continue Trazodone, Sertaline and Quetiapine with caution (DDI ? 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 Vazquez at [facility] -continue Trazodone, Seroquel and Quetiapine with caution (DDI ? prolonged OTc) -requested psychiatrist to review and adjust medications if possible due to his heart failure. Assessment & Plan (08/05/2022 10:20 AM EDT): -followed by psychiatristDr. Vazquez at [facility] -continue Trazodone, Seroquel and Quetiapine with caution (DDI ? prolonged OTc) -requested psychiatrist to review and adjust medications if possible due to his heart failure. Assessment & Plan (04/21/2022 9:30 AM EST): -followed by psychiatristDr. Vazquez at [facility] -continue Trazodone, Seroquel and Quetiapine with caution (DDI ? prolonged OTc) -requested psychiatrist to review and adjust medications if possible due to his heart failure. 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 Bocanegra in Feb 2024 -Last exacerbation in Nov 2022. Prescribed Augmentin by fine sander. -exacerbation frequency 4 times per year -Hx intubation, mainly for overdose (opioid and BZD) -PFT 03/25/20 Bronchial asthma -continue Fluticasone / umeclidinium / vilanterol as directed -continue theophylline as prescribed -Proper mouth care discussed again -Continue albuterol HFA and nebulizer prn as rescue -Continue smoking cessation effort and maintaining abstinence Assessment & Plan (10/28/2024 5:35 PM EDT): -followed by [facility] fine sander, last seen by Dr. Bocanegra in Feb 2024 -Last exacerbation in Nov 2022. Prescribed Augmentin by fine sander. -exacerbation frequency 4 times per year -Hx intubation, mainly for overdose (opioid and BZD) -PFT 03/25/20 Bronchial asthma -continue Fluticasone / umeclidinium / vilanterol as directed -continue theophylline as prescribed -Proper mouth care discussed again -Continue albuterol HFA and nebulizer prn as rescue -Continue smoking cessation effort and maintaining abstinence Assessment & Plan (04/06/2024 6:46 AM EST): -followed by [facility] fine sander, last seen by Dr. Bocanegra in Feb 2024 -Last exacerbation in Nov 2022. Prescribed Augmentin by fine sander. -exacerbation frequency 4 times per year -Hx intubation, mainly for overdose (opioid and BZD) -PFT 03/25/20 Bronchial asthma -continue Fluticasone / umeclidinium / vilanterol as directed -continue theophylline as prescribed -Proper mouth care discussed again -Continue albuterol HFA and nebulizer prn as rescue -Continue smoking cessation effort and maintaining abstinence Assessment & Plan (11/20/2023 10:13 AM EDT): -followed by [facility] fine sander, last seen on 03/23/23. -Last exacerbation in Nov 2022. Prescribed Augmentin by fine sander. -exacerbation frequency 4 times per year -Hx intubation, mainly for overdose (opioid and BZD) -PFT 03/25/20 Bronchial asthma -continue Fluticasone / umeclidinium / vilanterol as directed -continue theophylline as prescribed -Proper mouth care discussed again -Continue albuterol HFA and nebulizer prn as rescue -Work on smoking cessation Assessment & Plan (08/09/2023 4:52 AM EDT): >>ASSESSMENT AND PLAN FOR CHRONIC OBSTRUCTIVE LUNG DISEASE ([facility]) WRITTEN ON 08/03/2022 10:23 AM BY BUTCH REDMOND -followed by [facility] fine sander, last seen on 04/07/22. -Last exacerbation in February 2022, bronchitis exacerbation. Rx azithromycin and annual CT Scan. Pt to continue Anoro and theophylline -Pt had 2 antibiotic courses for aspiration pneumonia in Mar / Apr 2021 and 1 antibiotic / prednisone for COPD exacerbation in May 2021 -exacerbation frequency 5 times per year (0703-9732) -Hx intubation, mainly for overdose (opioid and BZD) -PFT 03/25/20 Bronchial asthma -continue Trelegy as directed -continue theophylline as prescribed -Proper mouth care discussed again -Continue albuterol HFA and nebulizer prn as rescue -Work on smoking cessation Assessment & Plan (08/09/2023 4:52 AM EDT): >>ASSESSMENT AND PLAN FOR CHRONIC OBSTRUCTIVE LUNG DISEASE ([facility]) WRITTEN ON 04/01/2023 6:48 AM BY HALLIE CHAVIRA MD -followed by [facility] fine sander, last seen on 03/23/23. -Last exacerbation in Nov 2022. Prescribed Augmentin by fine sander. -exacerbation frequency 4 times per year -Hx intubation, mainly for overdose (opioid and BZD) -PFT 03/25/20 Bronchial asthma -continue Fluticasone / umeclidinium / vilanterol as directed -continue theophylline as prescribed -Proper mouth care discussed again -Continue albuterol HFA and nebulizer prn as rescue -Work on smoking cessation Assessment & Plan (08/11/2023 6:11 PM EDT): -followed by [facility] fine sander, last seen on 03/23/23. -Last exacerbation in Nov 2022. Prescribed Augmentin by fine sander. -exacerbation frequency 4 times per year -Hx [...] ASTHMA WITH COPD (CHRONIC OBSTRUCTIVE PULMONARY DISEASE) ([facility]) WRITTEN ON 04/21/2022 9:31 AM BY BUTCH REDMOND -followed by [facility] fine sander, last seen on 04/07/22 -Last exacerbation in February 2022, bronchitis exacerbation. Rx azithromycin and annual CT Scan. Pt to continue Anoro and theophylline -Pt had 2 antibiotic courses for aspiration pneumonia in MarApr 2021 and 1 antibiotic / prednisone for COPD exacerbation in May 2021 -exacerbation frequency 5 times per year ([id number]) -Hx intubation, mainly for overdose (opioid and BZD) -PFT 03/25/20 Bronchial asthma -continue Trelegy as directed -continue theophylline as prescribed -Proper mouth care discussed again -Continue albuterol HFA and nebulizer prn as rescue -Work on smoking cessation >>ASSESSMENT AND PLAN FOR CHRONIC OBSTRUCTIVE LUNG DISEASE ([facility]) WRITTEN ON 04/21/2022 9:31 AM BY BUTCH REDMOND -followed by [facility] fine sander, last seen on 04/07/22. -Last exacerbation in February 2022, bronchitis exacerbation. Rx azithromycin and annual CT Scan. Pt to continue Anoro and theophylline -Pt had 2 antibiotic courses for aspiration pneumonia in MarApr 2021 and 1 antibiotic / prednisone for COPD exacerbation in May 2021 -exacerbation frequency 5 times per year ([id number]) -Hx intubation, mainly for overdose (opioid and BZD) -PFT 03/25/20 Bronchial asthma -continue Trelegy as directed -continue theophylline as prescribed -Proper mouth care discussed again -Continue albuterol HFA and nebulizer prn as rescue -Work on smoking cessation Schizophrenia 07/19/2011 Assessment & Plan (01/31/2025 5:59 AM EST): -followed by psychiatristDr. Vzaquez at [facility] -continue Trazodone, Sertraline and Quetiapine with caution (DDI ? prolonged OTc) -animal therapy with dog has been effective. Letter for jig bore tool maker animal / therapy animal was signed and given to the patient. Assessment & Plan (10/28/2024 5:34 PM EDT): -followed by psychiatristDr. Vazquez at [facility] -continue Trazodone, Sertraline and Quetiapine with caution (DDI ? prolonged OTc) -animal therapy with dog has been effective. Letter for jig bore tool maker animal / therapy animal was signed and given to the patient. Assessment & Plan (04/06/2024 7:05 AM EST): -followed by psychiatristDr. Vazquez at [facility] -continue Trazodone, Sertraline and Quetiapine with caution (DDI ? prolonged OTc) -animal therapy with dog has been effective. Letter for jig bore tool maker animal / therapy animal was signed and given to the patient. Assessment & Plan (11/20/2023 10:24 AM EDT): -followed by psychiatristDr. Vazquez at [facility] -continue Trazodone, Seroquel and Quetiapine with caution (DDI ? prolonged OTc) -requested psychiatrist to review and adjust medications if possible due to his heart failure. Assessment & Plan (08/09/2023 4:56 AM EDT): -followed by psychiatrDr. Taylor castañeda at [facility] -continue Trazodone, Seroquel and Quetiapine with caution (DDI ? prolonged OTc) -requested psychiatrist to review and adjust medications if possible due to his heart failure. Assessment & Plan (08/05/2022 10:20 AM EDT): -followed by psychiatrDr. Taylor castañeda at [facility] -continue Trazodone, Seroquel and Quetiapine with caution (DDI ? prolonged OTc) -requested psychiatrist to review and adjust medications if possible due to his heart failure. Resolved Problems Problem Noted Date Diagnosed Date Resolved Date Aspiration pneumonia ([facility]) 08/01/2024 01/31/2025 Assessment & Plan (08/01/2024 11:03 AM EDT): Seems to be resolved Chronic anemia 08/04/2023 04/06/2024 Dyspnea on exertion 08/04/2023 11/20/19 Colon cancer screening 08/04/202311/17 Smoker 08/04/2023 04/06/2024 COPD exacerbation ([facility]) 08/04/2023 08/09/2023 Preoperative examination 08/03/202206/2022 Assessment & Plan (08/05/2022 10:20 AM EDT): - Patient is scheduled for a low-intermittent risk procedure. Patient is considered moderate to high risk patient. His functional level is 3-4 METs. Pt was already seen by his fine sander and tray casting machine operator again in July 2022, and was cleared by both specialists. He will proceed to biopsy without further risk factor management. Patient and caregiver were instructed to follow instructions given by Urologist for perioperative care. Glucosuria 06/29/2022 08/03/2022 Dizzy 06/29/2022 08/03/2022 Assessment & Plan (06/29/2022 12:44 PM EDT): Has hyperglycemia/glucosuria. RO DM FU w PCP Spoke with NICOLE, no fgtsk check at home Check A1c [...] Encounters Date Type Department Care Team Description 02/25/2025 Refill [facility] [address] [place] [address] Hallie Chavira MD 02/13/2025 Orders Only GENERIC EXTERNAL DATA DEPARTMENT Provider, Generic External Data 01/29/2025 Refill [facility] [address] [place] [address] Hallie Chavira MD Hypomagnesemia 01/20/2025 10:00 AM EST Office Visit [facility] [address] [place] [address] Hallie Chavira MD Heart failure with reduced ejection fraction (HCC) (Primary Dx); Encounter for immunization; Encounter for vaccination; Dietary counseling; Exercise counseling; Overweight; Venous insufficiency; Primary hypertension; Hypomagnesemia; Elevated PSA; Undifferentiated schizophrenia (CMS/HCC) (HCC); Pulmonary fibrosis (HCC); 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) (HCC) 01/20/2025 Telephone [facility] [address] [place] [phone] Hallie Chavira MD Record Request 01/20/2025 Travel 01/17/2025 Telephone [facility] [address] [place] [address] Hallie Chavira MD chartprep 12/31/2024 Refill [facility] [address] [place] [id number] Hallie Chavira MD Hypomagnesemia 12/30/2024 Refill [facility] [address] [place], [place] [id number] Hallie Chavira MD Anemia, unspecified type; Hypomagnesemia 12/19/2024 Telephone [facility] [address] [place] [address] Hallie Chavira MD FYI 12/04/2024 Telephone [facility] [address] [place] [id number] Hallie Chavira MD fyi 12/03/2024 Refill [facility] [address] [place] [id number] Hallie Chavira MD Hypomagnesemia 12/03/2024 Orders Only [...] Procedure Name Priority Date/Time Associated Diagnosis Comments MULTIPLEX IHC Routine 02/13/2025 8:50 AM EST BASIC METABOLIC PANEL Routine 12/05/2024 9:52 AM [...] Recently Relevant to Health Maintenance Results * Multiplex IHC (02/13/2025 8:50 AM EST) 02/13/2025 8:50 AM EST 02/13/2025 9:51 AM EST [facility] - 02/18/2025 1:49 PM EST ----- ------- Name: Marc MarcelinotanezJoseph Age/Sex: 84/M : 1940 Unit#: [id number] Attend Dr: Stevie Molina MD Re02/13/25 Status: DEP REF Location: [facility] Disch: ----- ------- SPEC : [id number] RECD: 02/13/25 STATUS: JONNY BOLANOS NUM: [id number] DANIELLE: 02/13/[address] [facility] [address]: Stevie Molina MD ENTERED: 02/13/25-2 SP TYPE: Surgical OTHR DR: Hallie Chavira MD ORDERED: Multiplex IHC/6, PIN4/6, Prostate biopsy Diagnosis Prostate needle biopsies: A: Left base lateral: Prostatic adenocarcinoma, 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 B: Left base medial: Prostatic adenocarcinoma, [place] score 3+4=7 (grade group 2) involving 15% of the tissue. C: Left mid lateral: Prostatic adenocarcinoma, [place] score 3+3=6 (grade group 1) involving 5% of the tissue. D: Left mid medial: Benign prostatic tissue; no malignancy identified. E: Left apex lateral: Prostatic adenocarcinoma, [place] score 3+3=6 (grade group 1) involving 15% of the tissue. F: Left apex medial: Benign prostatic tissue with focal urothelial metaplasia; no malignancy identified. G: Right base lateral: Benign prostatic tissue; no malignancy identified. H: Right base medial: Benign prostatic tissue; no malignancy identified. I: Right mid lateral: Benign prostatic tissue; no malignancy identified. J: Right mid medial: Benign prostatic tissue; no malignancy identified. K: Right apex lateral: Benign prostatic tissue; no malignancy identified. L: Right apex medial: Benign prostatic tissue; no malignancy identified. Data synopsis - Prostate needle biopsy Histologic type: Adenocarcinoma; focal ductal adenocarcinoma Histologic grade: Kiah score: 4+4=8 (left base lateral) 3+4=7 (left base medial) 3+3=6 (left mid lateral; left apex lateral) % of pattern 4: 75% of the tumor % of pattern 5: 0% Grade group: 4, 2 and 1 Tumor quantitation: CONTINUED ON NEXT PAGE ----- ------- Name: Marc WhiteJoseph Age/Sex: 84/M : 1940 [id number] [id number] Attend Dr: Stevie Molina MD Re02/13/25 Status: DEP REF Location: [facility] Disch: ----- ------- SPEC : [id number] RECD: 02/13/25 STATUS: JONNY BOLANOS NUM: [id number] DANIELLE: 02/13/[address] [facility] [address]: Stevie Molina MD ENTERED: 02/13/25 SP TYPE: Surgical OTHR DR: Hallie Chavira MD ORDERED: Multiplex IHC/6, PIN4/6, Prostate biopsy Diagnosis (Continued) Number cores positive: 4 Total number of cores: 12 % of tissue involved: 10% of all tissue examined Periprostatic fat inv.: Suspicious Seminal vesicle inv.: Not identified Perineural inv.: Present (focal) LVI: Not identified Clinical History Elevated PSA Microscopic Description A-L. Microscopic sections reviewed. PIN4 multiplex immunostains support the diagnoses in A, B, E, F, I and J Material Received A: Left base lateral B: Left base medial C: Left mid lateral D: Left mid medial E: Left apex lateral F: Left apex medial G: Right base lateral H: Right base medial I: Right mid lateral J: Right mid medial K: Right apex lateral L: Right apex medial Gross Description A. Received in formalin is 1 [place] 20 mm in length needle core, totally submitted in cassette A1. B. Received in formalin is 1 [place] 11 mm in length needle core, totally submitted in cassette B1. C. Received in formalin is 1 [place] 18 mm in aggregate length fragmented needle core, totally submitted in cassette C1. D. Received in formalin is 1 [place] 15 mm in length fragmented needle core, totally submitted in cassette D1. E. Received in formalin is 1 [place] 16 mm in length needle core, totally submitted in cassette CONTINUED ON NEXT PAGE ----- ------- Name: Joseph Galvan Age/Sex: 84/M : 1940 Unit#: [id number] Attend Dr: Stevie Molina MD Re02/13/25 Status: DEP REF Location: [facility] Disch: ----- ------- SPEC : [id number] RECD: 02/13/25 STATUS: JONNY BOLANOS NUM: [id number] DANIELLE: 02/13/[address] [facility] [address]: Stevie Molina MD ENTERED: 02/13/25-1012 SP TYPE: Surgical OTHR DR: Hallie Chavira MD ORDERED: Multiplex IHC/6, PIN4/6, Prostate biopsy Gross Description (Continued) E1. F. Received in formalin is 1 [place] 15 mm in length needle core, totally submitted in cassette F1. G. Received in formalin is 1 [place] 20 mm in length needle core, totally submitted in cassette G1. H. Received in formalin is 1 [place] 16 mm in length needle core, totally submitted in cassette H1. I. Received in formalin is 1 [place] 15 mm in length needle core, totally submitted in cassette I1. J. Received in formalin is 1 [place] 22 mm in length needle core, totally submitted in cassette J1. K. Received in formalin is 1 [place] 15 mm in length needle core, totally submitted in cassette K1. L. Received in formalin is 1 [place] 16 mm in length needle core, totally submitted in cassette L1. (DTL) For identification purposes, the tissue cores are inked blue. This case was reviewed intradepartmentally. Special studies ordered and performed: PIN4 multiplex immunostains on A, B, E, F, I and J IHC S/NG Disclaimer NOTE: Unless otherwise stated, all tissue is formalin-fixed and paraffin-embedded. Some or all of the immunohistochemical tests reported herein may have been developed and their performance characteristics determined by [facility]. They have not been cleared or approved by the U.S. Food and Drug Administration (FDA). However, the FDA has determined that such clearance or approval is not necessary. This laboratory is certified under the Clinical Laboratory Improvement Amendments of 1988 (CLIA) as qualified to perform high complexity clinical laboratory testing. Copies To: Stevie Molina MD [facility] [address] [place] [address] [address] [place] [address] Hallie Chavira MD [address] [address] CONTINUED ON NEXT PAGE ----- ------- Name: Marc Rivassandra Joseph White Age/Sex: 84/M : 1940 Unit#: [id number] Attend Dr: Stevie Molina MD Re02/13/25 Status: DEP REF Location: [facility] Disch: ----- ------- SPEC : [id number] RECD: 02/13/25 STATUS: JONNY BOLANOS NUM: [id number] DANIELLE: 02/13/[address] [facility] [address]: Stevie Molina MD ENTERED: 02/13/251012 SP TYPE: Surgical OTHR DR: Hallie Chavira MD ORDERED: Multiplex IHC/6, PIN4/6, Prostate biopsy Copies To: (Continued) [phone] ----- ------- Signed (signature on file) Gorge Rivera MD 02/18/25 1349 ----- ------- END OF REPORT Generic External Data Provider LAB CYTOGENETICS ORDERABLES Final Result Performing Organization Address [facility]/ZIP Co de Phone Number [facility] [address] [place] [phone] * Magnesium (12/05/2024 9:52 AM EDT) Only the most recent of2 resultswithin the time period is included. Pathologist [facility] Magnesium 1.7 1.6 - 2.6 mg/dL [facility] Blood Venous blood specimen / Unknown 12/05/2024 9:52 AM EDT 12/05/2024 9:52 AM EDT Hallie Chavira MD LAB BLOOD ORDERABLES Final Resul t Performing Organization Address [facility]/ZIP Co de Phone Number [facility] [address] [place] [phone] * (ABNORMAL) Basic Metabolic Panel (12/05/2024 9:52 AM EDT) Pathologist [facility] Sodium 143 135 - 145 mmol/L [facility] Potassium 3.5 3.3 - 5.1 mmol/L [facility] Chloride 109(H) 96 - 108 mmol/L [facility] Carbon Dioxide 24 22 - 29 mmol/L [facility] Anion Gap 14 12 - 20 [facility] Urea Nitrogen (BUN) 14 9 - 16 mg/dL [facility] Creatinine, Serum 0.95 0.5 - 1.4 mg/dL [facility] Estimated Glomerular Filt Rate >60 [facility] Comment:Chronic Kidney Disea se: Estimated GFR < 60 mL/min/1.40d3Rttsmz Kidney Disease: Estimated GFR < 15 mL/min/1.73m2 Glucose 169(H) 60 - 115 mg/dL [facility] Calcium 8.8 8.4 - 10.2 mg/dL [facility] Blood Venous blood specimen / Unknown 12/05/2024 9:52 AM EDT 12/05/2024 9:52 AM EDT Hallie Chavira MD LAB BLOOD ORDERABLES Final Resul t Performing Organization Address City/[facility]/ZIP Co de Phone Number [facility] [address] [place] [phone] * TSH W/Reflex to FT4 (12/03/2024 11:26 AM EDT) TSH reflex Free T4 1.97 0.32 - 4.0 uIU/mL [facility] Blood Venous blood specimen / Unknown 12/03/2024 11:26 AM EDT 12/03/2024 11:26 AM EDT Hallie Chavira MD LAB BLOOD ORDERABLES Final Resul t Performing Organization Address City/[facility]/ZIP Co de Phone Number [facility] [address] [place] [phone] * (ABNORMAL) PSA, Total With Reflex to PSA, Free (12/03/2024 11:26 AM EDT) PSA,Total (Free>4and<10) 64.19(H ) 0.00 - 4.00 ng/mL [facility] Comment:A Free PSA was not p [...] LAB BLOOD ORDERAB LES Final Result [facility] [address] [place] [phone] * Lipid Panel with Reflex to Direct LDL (12/03/2024 11:26 AM EDT) Triglycerides 106 <150 mg/dL [facility] Comment:Desirable Triglyceri de: less than 150 mg/dLBorderline High Triglyceride 150-199 mg/dLHigh Triglyceride: 200-499 mg/dLVery High Triglyceride: greater than or equal to 5OO mg/dL Cholesterol 116 <200 mg/dL [facility] Comment:Desirable Cholestero l: less than 200 mg/dLBorderline High Cholesterol: 200-239 mg/dLHigh Cholesterol: greater than 239 mg/dL LDL Cholesterol Calculated 53 <100 mg/dL [facility] Comment:Desirable LDL: less than 100 mg/dLNear Optimal/Above Optimal LDL: 110- 129 mg/dLBorderline High LDL: 130-159 mg/dLHigh LDL: 160-189 mg/dLVery High LDL: greater than or equal to 190 mg/dL HDL Cholesterol 42 >40 mg/dL [facility] Comment:Desirable HDL: great er than 40 mg/dL Note: This HDL assay may give artificially low results in patients with liver disease. Blood 12/03/2024 11:2 6 AM EDT 12/03/2024 11:26 AM EDT us Hallie Chavira MD LAB BLOOD ORDERABLES Final Resul t [facility] [address] [place] [phone] * (ABNORMAL) Comprehensive Metabolic Panel (12/03/2024 11:26 AM EDT) Sodium 141 135 - 145 mmol/L [facility] Potassium 3.4 3.3 - 5.1 mmol/L [facility] Chloride 108 96 - 108 mmol/L [facility] Carbon Dioxide 24 22 - 29 mmol/L [facility] Anion Gap 12 12 - 20 [facility] Urea Nitrogen (BUN) 14 9 - 16 mg/dL [facility] Creatinine, Serum 0.98 0.5 - 1.4 mg/dL [facility] Estimated Glomerular Filt Rate >60 [facility] Comment:Chronic Kidney Disea se: Estimated GFR < 60 mL/min/1.20c5Dgfzej Kidney Disease: Estimated GFR < 15 mL/min/1.73m2 Glucose 129(H) 60 - 115 mg/dL [facility] Calcium 8.9 8.4 - 10.2 mg/dL [facility] Bilirubin, Total 1.4(H) 0.0 - 1.0 mg/dL [facility] Aspartate Amino Transferase 34 5 - 37 U/L [facility] Alanine Aminotransferase 14 0 - 40 U/L [facility] Total Protein 7.0 6.5 - 8.0 g/dL [facility] Albumin Level 4.3 3.5 - 5.0 g/dL [facility] Alkaline Phosphatase 53 39 - 117 U/L [facility] Blood Venous blood specimen / Unknown 12/03/2024 11:26 AM EDT 12/03/2024 11:26 AM EDT us Hallie Chavira MD LAB BLOOD ORDERABLES Final Resul t Performing Organization Address [facility]/ZIP Co de Phone Number [facility] [address] [place] [phone] * Hemoglobin A1c (10/16/2024 10:37 AM EDT) Hemoglobin A1c 5.9 <6.0 % [facility] Comment:Hemoglobin A1C Refer ence Range Adults: 4.8 - 6.0 % Non diabetic: < 6.0 % Goal: < 7.0 %Additional Action Suggested: > 8.0 %Note: Hemoglobin A1c results are invalid for patients with abnormal amounts of HbF. Blood transfusions may impact the HbA1c concentration in the patient sample. Estimated Average Glucose 123 mg/dL [facility] Comment:eAG = Estimated ave rage glucose which is %A1C expressed asaverage glucose, using the formula of the K3E-RgpykewRjalqpc Glucose study (ADAG), Diabetes Care, Vol.31,#8,Oct. 2007 Blood Venous blood specimen / Unknown 10/16/2024 10:37 AM EDT 10/16/2024 11:14 AM EDT us Alem Corley NP LAB BLOOD ORDERABLES Final Resu lt Performing Organization Address [facility] Co de Phone Number [facility] [address] [place] [phone] from Last 3 Months or Most Recently Relevant to Health Maintenance Insurance [address] [place] [phone] [facility]LY [facility] ASSISTED OPTIONS (HMO D-SNP) Care Teams Rim Fire Charger Operator Relationship Specialty Start Date End Date Hallie Chavira MD [address] [place] [address] PCP - General Family Medicine 03/13/18 [facility] 07/05/19
--- OUTSIDE RECORDS SUMMARY | 2025-02-27 18:44 | XMS_ITS | Encounter Summary ---
Author Organization [email or web address] Address [address] [facility] 7[address] [place] [address] Care Team Providers Care Filler Picker Name Role Phone Hallie Mcclendon MD Primary Care Provider Reason for Visit * Reason Onset Date Comments FYI 12/19/2024 Encounter Details Date Type Department Care Team ([facility] st Contact Info) Description 12/19/[address] [facility] MEDICINE [address] [place], [place] [phone] Hallie Mcclendon MD [address] [place], [place] [phone] FYI Social History Tobacco Use Types Packs/Day [...] - 12/19/2024 12:39 PM EDT Tc from [place] with [facility] wanted to report [...] documented as of this encounter Care Teams Filler Picker Relationship Specialty Start Date End Date Hallie Mcclendon MD [address] [place] [address] PCP - General Family Medicine 03/13/18 [facility] 07/05/19 documented as of this encounter
--- OUTSIDE RECORDS SUMMARY | 2025-02-27 18:44 | XMS_ITS | Encounter Summary ---
Author Organization [employer] Address [address] [facility] 7t [place] [address] Care Team Providers Care Plastic Molding Operator Name Role Phone Hallie Mcclendon MD Primary Care Provider [phone] Reason for Visit * Reason Comments Med Refill Encounter Details Date Type Department Care Team ([facility] st Contact Info) Description 07/13/2023 Refill [facility] MED[facility] [address] [place], [place] [phone] Hallie Mcclendon MD [address] [place], [place] [phone] Constipation, unspecified constipation type Social History Tobacco [...] type documented in this encounter Care Teams Plastic Molding Operator Relationship Specialty Start Date End Date Hallie Mcclendon MD [address] [place] [address] PCP - General Family Medicine 03/13/18 [facility] 07/05/19 documented as of this encounter
--- OUTSIDE RECORDS SUMMARY | 2025-02-27 18:44 | XMS_ITS | Encounter Summary ---
Author Organization [employer] Address [address] [facility] 7t [place] [address] Care Team Providers Care Supervisor Pressing Department Name Role Phone Hallie Mcclendon MD Primary Care Provider [phone] Encounter Details Date Type Department Care Team (Late st Contact Info) Description 12/09/2022 Orders Only [facility] MEDICINE [address] [place] [address] Hallie Mcclendon MD [address] [place] [address] Hematemesis, unspecified whether nausea present (Primary Dx); [...] B12 >2,000(H ) 200 - 900 pg/mL [facility] Comment:NORMAL 200-900 PG/ML INDETERMINATE 160-199 PG/ML DEFICIENT < 160 PG/ML Folate 10.6 > or = 4.0 ng/mL [facility] Comment:Reference Values:> o r = 4.0 ng/mL< 4.0 ng/mL suggests folate deficiency Methotrexate, aminopterin and folinic acid(leucovorin) are chemotherapeutic agents whose molecularstructures are similar to folate; therefore, the Architectfolate assay cannot be used for patients using these drugs. 12/13/2022 10:0 7 AM EDT 12/13/2022 10:07 AM EDT Hallie Mcclendon MD LAB BLOOD ORDERABLES Final Resul t Performing Organization Address City/[facility] Co de Phone Number [facility] [address] [place] [phone] * (ABNORMAL) Iron And Total Iron Binding Capacity (12/13/2022 10:07 AM EDT) Iron 131 45 - 160 mcg/dL [facility] Total Iron Binding Capacity 251 228 - 428 mcg/dL [facility] Percent Iron Saturation 52(H) 15 - 50 % [facility] Unsaturated Iron Binding 120 ug/dL [facility] Blood Venous blood specimen / Unknown 12/13/2022 10:07 AM EDT 12/13/2022 10:07 AM EDT us Hallie Mcclendon MD LAB BLOOD ORDERABLES Final Resul t Performing Organization Address [facility] Co de Phone Number [facility] [address] [place] [phone] * (ABNORMAL) Ferritin (12/13/2022 10:07 AM EDT) Ferritin 506(H) 20 - 250 ng/mL [facility] Blood Venous blood specimen / Unknown 12/13/2022 10:07 AM EDT 12/13/2022 10:07 AM EDT Hallie Mcclendon MD LAB BLOOD ORDERABLES Final Resul t Performing Organization Address City/[facility] Co de Phone Number [facility] [address] [place] [phone] * T4, Free (12/13/2022 10:07 AM EDT) Free T4 (Free Thyroxine) 0.90 0.71 - 1.85 ng/dL [facility] Blood Venous blood specimen / Unknown 12/13/2022 10:07 AM EDT 12/13/2022 10:07 AM EDT Hallie Mcclendon MD LAB BLOOD ORDERABLES Final Resul t Performing Organization Address City/[facility]/ZIP Co de Phone Number [facility] [address] [place] [phone] * TSH (12/13/2022 10:07 AM EDT) Thyroid Stimulating Hormone 2.54 0.32 - 4.0 uIU/mL [facility] Comment:TSH 3rd Generation ( [facility]) Blood Venous blood specimen / Unknown 12/13/2022 10:07 AM EDT 12/13/2022 10:07 AM EDT Hallie Mcclendon MD LAB BLOOD ORDERABLES Final Resul t Performing Organization Address City/[facility]/ZIP Co de Phone Number [facility] [address] [place] [phone] * Hemoglobin A1c (12/13/2022 10:07 AM EDT) Hemoglobin A1c 5.7 <6.0 % [facility] Comment:Hemoglobin A1C Refer ence Range Adults: 4.8 - 6.0 % Non diabetic: < 6.0 % Goal: < 7.0 %Additional Action Suggested: > 8.0 %Note: Hemoglobin A1c results are invalid for patients with abnormal amounts of HbF. Blood transfusions may impact the HbA1c concentration in the patient sample. Estimated Average Glucose 117 mg/dL [facility] Comment:eAG = Estimated ave rage glucose which is %A1C expressed asaverage glucose, using the formula of the V1B-BchqjjoGnrklol Glucose study (ADAG), Diabetes Care, Vol.31,#8,Oct. 2007 Blood Venous blood specimen / Unknown 12/13/2022 10:07 AM EDT 12/13/2022 10:07 AM EDT us Hallie Mcclendon MD LAB BLOOD ORDERABLES Final Resul t [facility] [address] [place] [phone] * (ABNORMAL) Comprehensive Metabolic Panel (12/13/2022 10:07 AM EDT) Sodium 139 135 - 145 mmol/L [facility] Potassium 3.8 3.3 - 5.1 mmol/L [facility] Chloride 106 96 - 108 mmol/L [facility] Carbon Dioxide 24 22 - 29 mmol/L [facility] Anion Gap 13 12 - 20 [facility] Urea Nitrogen (BUN) 21(H) 9 - 16 mg/dL [facility] Creatinine, Serum 1.06 0.5 - 1.4 mg/dL [facility] Estimated Glomerular Filt Rate >60 [facility] Comment:NOTE: For -Am erican individuals, multiply the result by 1.210.Chronic Kidney Disease: Estimated GFR < 60 mL/min/1.37l7Kgxpuc Kidney Disease: Estimated GFR < 15 mL/min/1.73m2 Glucose 104 60 - 115 mg/dL [facility] Calcium 10.3(H) 8.4 - 10.2 mg/dL [facility] Bilirubin, Total 0.5 0.0 - 1.0 mg/dL [facility] Aspartate Amino Transferase 25 5 - 37 U/L [facility] Alanine Aminotransferase 24 0 - 40 U/L [facility] Total Protein 7.6 6.5 - 8.0 g/dL [facility] Albumin Level 4.3 3.5 - 5.0 g/dL [facility] Alkaline Phosphatase 88 39 - 117 U/L [facility] Blood Venous blood specimen / Unknown 12/13/2022 10:07 AM EDT 12/13/2022 10:07 AM EDT us Hallie Mcclendon MD LAB BLOOD ORDERABLES Final Resul t [facility] [address] [place], [place] [phone] * (ABNORMAL) CBC auto differential (12/13/2022 10:07 AM EDT) White Blood Count 8.1 4.8 - 10.8 X10*3/uL [facility] Red Blood Count 5.15 4.60 - 5.80 X10*6/uL [facility] Hemoglobin 15.5 14.0 - 18.0 g/dl [facility] Hematocrit 45.7 42.0 - 52.0 % [facility] Mean Corpuscular Volume 88.7 80.0 - 98.0 fL [facility] Mean Corpuscular Hemoglobin 30.1 27.0 - 33.0 pg [facility] Mean Corpuscular HGB Conc 33.9 31.0 - 36.0 g/dl [facility] Red Cell Distribution Width 12.7 11.0 - 16.0 % [facility] Platelet Count 182 160 - 400 X10*3/uL [facility] Mean Platelet Volume 10.5 9.4 - 12.4 fL [facility] Neutrophils Percent Auto 55.1 45 - 73 % [facility] Imm Gran Pct Auto 0.2 0.0 - 0.4 % [facility] Lymphocytes Percent Auto 30.2 20 - 40 % [facility] Monocytes Percent Auto 6.5 2 - 11 % [facility] Eosinophils Percent Auto 7.5(H) 0 - 4 % [facility] Basophils Percent Auto 0.5 0 - 2 % [facility] NRBC Pct Auto 0.0 0.0 - 0.2 /100WBC [facility] Neutrophils Absolute Auto 4.5 2.0 - 8.3 x10*3/uL [facility] Imm Gran Abs Auto 0.02 0.00 - 0.03 X10*3/uL [facility] Lymphocytes Absolute Auto 2.5 1.2 - 4.9 X10*3/uL [facility] Monocytes Absolute Auto 0.5 0.1 - 1.2 X10*3/uL [facility] Eosinophils Absolute Auto 0.6(H) 0.0 - 0.4 X10*3/uL [facility] Basophils Absolute Auto 0.0 0.0 - 0.2 X10*3/uL [facility] NRBC Abs Auto 0.000 0.0 - 0.012 X10*3/uL [facility] Blood Venous blood specimen / Unknown 12/13/2022 10:07 AM EDT 12/13/2022 10:07 AM EDT Hallie Mcclendon MD LAB BLOOD ORDERABLES Final Resul t Performing Organization Address City/[facility]/ZIP Co de Phone Number [facility] [address] [place] [phone] * B Type Natriuretic Peptide (BNP) (12/13/2022 10:07 AM EDT) B Type Natriuretic Peptide <10 <100 pg/mL [facility] Comment:For those patients w ho are being treated with Natrecor(nesiritide, recombinant BNP), BNP testing should beperformed at least two hours post treatment in order toensure that only endogenous levels of BNP are detected. Blood Venous blood specimen / Unknown 12/13/2022 10:07 AM EDT 12/13/2022 10:07 AM EDT Hallie Mcclendon MD LAB BLOOD ORDERABLES Final Resul t Performing Organization Address City/[facility]/ZIP Co de Phone Number [facility] [address] [place] [phone] documented in this encounter Visit Diagnoses Diagnosis Hematemesis, unspecified whether nausea present- Primary Heart failure with reduced ejection fraction (HCC) Dyslipidemia Other and unspecified hyperlipidemia Elevated TSH Other abnormal blood chemistry Class 1 obesity due to excess calories with serious comorbidity and body mass index (BMI) of 31.0 to 31.9 in adult documented in this encounter Care Teams Supervisor Pressing Department Relationship Specialty Start Date End Date Hallie Mcclendon MD [address] [place] [address] PCP - General Family Medicine 03/13/18 [facility] 07/05/19 documented as of this encounter
--- OUTSIDE RECORDS SUMMARY | 2025-02-27 18:44 | XMS_ITS | Encounter Summary ---
Author Organization [employer] Address [address] [facility] 7t [place] [address] Care Team Providers Care Family Preservation Caseworker Name Role Phone Hallie Mcclendon MD Primary Care Provider [phone] Encounter Details Date Type Department Care Team (Late st Contact Info) Description 06/20/[address] [facility] MEDICINE [address] [place] [address] Hallie Mcclendon MD [address] [place], [place] [phone] Social History Tobacco Use Types Packs/Day Years [...] on filedocumented in this encounter Care Teams Family Preservation Caseworker Relationship Specialty Start Date End Date Hallie Mcclendon MD [address] [place] [address] PCP - General Family Medicine 03/13/18 [facility] 07/05/19 documented as of this encounter
--- OUTSIDE RECORDS SUMMARY | 2025-02-27 18:44 | XMS_ITS | Encounter Summary ---
Author Organization [employer] Address [address] [facility] 7t [place] [address] Care Team Providers Care Licensed Real Estate Broker Name Role Phone Hallie Mcclendon MD Primary Care Provider [phone] Encounter Details Date Type Department Care Team (Late st Contact Info) Description 04/01/2022 Orders Only [facility] MEDICINE 230 [place] [address] Yuliana Barrios, RN Social History Tobacco Use [...] on filedocumented in this encounter Care Teams Licensed Real Estate Broker Relationship Specialty Start Date End Date Hallie Mcclendon MD 230 [place] [address] PCP - General Family Medicine 03/13/18 [facility] 07/05/19 documented as of this encounter
--- OUTSIDE RECORDS SUMMARY | 2025-02-27 18:44 | XMS_ITS | Encounter Summary ---
Author Organization [employer] Address [address] [facility] 7t [place] [address] Care Team Providers Care Auto Parts Handler Name Role Phone Hallie Mcclendon MD Primary Care Provider [phone] Reason for Visit * Reason Comments Med Refill Encounter Details Date Type Department Care Team ([facility] st Contact Info) Description 07/13/2023 Refill [facility] MEDICINE 230 [place], [place] [phone] Hallie Mcclendon MD [address] [place], [place] [phone] Constipation, unspecified constipation type Social History Tobacco [...] type documented in this encounter Care Teams Auto Parts Handler Relationship Specialty Start Date End Date Hallie Mcclendon MD [address] [place] [address] PCP - General Family Medicine 03/13/18 [facility] 07/05/19 documented as of this encounter
--- OUTSIDE RECORDS SUMMARY | 2025-02-27 18:44 | XMS_ITS | Encounter Summary ---
Author Organization [employer] Address 75 [facility] 7t [place] [address] Care Team Providers Care Liquor Merchant Name Role Phone Hallie Mcclendon MD Primary Care Provider [phone] Encounter Details Date Type Department Care Team ([facility] st Contact Info) Description 04/27/2023 Orders Only [facility] MEDICINE 230 [place] [address] Hallie Mcclendon MD 230 [place] [address] Social History Tobacco Use Types Packs/Day Years [...] on filedocumented in this encounter Care Teams Liquor Merchant Relationship Specialty Start Date End Date Hallie Mcclendon MD [address] [place] [address] PCP - General Family Medicine 03/13/18 [facility] 07/05/19 documented as of this encounter
--- OUTSIDE RECORDS SUMMARY | 2025-02-27 18:44 | XMS_ITS | Encounter Summary ---
Author Organization [employer] Address [address] [facility] 7t [place] [address] Care Team Providers Care Coffee Maker Servicer Name Role Phone Hallie Mcclendon MD Primary Care Provider [phone] Reason for Visit * Reason Comments Med Refill Encounter Details Date Type Department Care Team (Late st Contact Info) Description 06/14/2022 Refill [facility] [address] [place], [place] [phone] Hallie Mcclendon MD 230 [place], [place] [phone] Anemia in other chronic diseases classified elsewhere [...] elsewhere documented in this encounter Care Teams Coffee Maker Servicer Relationship Specialty Start Date End Date Hallie Mcclendon MD 230 [place], [place] [phone] PCP - General Family Medicine 03/13/18 [facility] 07/05/19 documented as of this encounter
--- OUTSIDE RECORDS SUMMARY | 2025-02-27 18:44 | XMS_ITS | Encounter Summary ---
Author Organization [employer] Address 75 [facility] 7t [place] [address] Care Team Providers Care Process Manufacturing Engineer Name Role Phone Hallie Mcclendon MD Primary Care Provider [phone] Reason for Referral * Consultation (Routine) - Canceled Specialty Diagnoses / Procedures Referred By Mya t Referred To Contact Pharmacy Diagnoses Hospital discharge follow-up Hallie Mcclendon MD 230 [place] [address] Phone: tel: fax: Referral ID Status Reason Start Date Expiration Date V isits Requested Visits Authorized [id number] Canceled Continuity of Care 07/10/2024 07/10/2025 6 6 Reason for Visit * Reason Onset Date Comments Call Back Request 07/10/2024 Encounter Details Date Type Department Care Team ([facility] st Contact Info) Description 07/10/2024 Telephone [facility] MEDICINE 230 [place], [place] [phone] Hallie Mcclendon MD 230 [place], [place] [phone] Call Back Request Social History Tobacco Use [...] month with the last one being at [facility], discharged on 07/09/2024. [...] - 07/10/2024 11:19 AM EDT TC from [place] with [facility] requesting a call back regarding pt medication. Contact Jenae at [phone] documented in this encounter Plan of Treatment [...] documented as of this encounter Care Teams Process Manufacturing Engineer Relationship Specialty Start Date End Date Hallie Mcclendon MD [address] [place] [address] PCP - General Family Medicine 03/13/18 [facility] 07/05/19 documented as of this encounter
--- OUTSIDE RECORDS SUMMARY | 2025-02-27 18:44 | XMS_ITS | Encounter Summary ---
Author Organization [employer] Address 75 [facility] 7t [place] [address] Care Team Providers Care Grades 9 Through 12 Teacher Name Role Phone Hallie Mcclendon MD Primary Care Provider Reason for Visit * Reason Onset Date Comments FYI 09/26/2024 Encounter Details Date Type Department Care Team ([facility] st Contact Info) Description 09/26/2024 Telephone [facility] MEDICINE 230 [place], [place] [phone] Hallie Mcclendon MD 230 [place], [place] [phone] FYI Social History Tobacco Use Types Packs/Day [...] documented as of this encounter Care Teams Grades 9 Through 12 Teacher Relationship Specialty Start Date End Date Hallie Mcclendon MD [address] [place] [address] PCP - General Family Medicine 03/13/18 [facility] 07/05/19 documented as of this encounter
--- OUTSIDE RECORDS SUMMARY | 2025-02-27 18:44 | XMS_ITS | Encounter Summary ---
Author Organization [employer] Address 75 [facility] 7t [place] [address] Care Team Providers Care Phlebotomy Instructor Name Role Phone Hallie Mcclendon MD Primary Care Provider [phone] Reason for Referral * Consultation (Urgent) - Closed Specialty Diagnoses / Procedures Referred By Mya t Referred To Contact Orthopaedic Surgery Diagnoses Left forearm pain Fall, subsequent encounter Hallie Mcclendon MD 230 [place] [address] Phone: tel: fax: [facility] [address] [place] [address] Dr [address] [place] [address] Phone: tel: Referral ID Status Reason Start Date Expiration Date V isits Requested Visits Authorized [id number] Closed Specialty Services Required 09/22/2023 09/21/2024 1 1 Encounter Details Date Type Department Care Team (Late st Contact Info) Description 09/22/[address] [facility] MEDICINE [address] [place], [place] [phone] Hallie Mcclendon MD 230 [place], [place] [phone] Left forearm pain (Primary Dx); Fall, subsequent [...] documented as of this encounter Care Teams Phlebotomy Instructor Relationship Specialty Start Date End Date Hallie Mcclendon MD 230 [place] [address] PCP - General Family Medicine 03/13/18 [facility] 07/05/19 documented as of this encounter
--- OUTSIDE RECORDS SUMMARY | 2025-02-27 18:44 | XMS_ITS | Encounter Summary ---
Author Organization [employer] Address 75 [facility] 7t [place] [address] Care Team Providers Care Lens Engraver Name Role Phone Hallie Mcclendon MD Primary Care Provider [phone] Reason for Visit * Reason Onset Date Comments Med Refill 09/15/2023 Encounter Details Date Type Department Care Team ([facility] st Contact Info) Description 09/15/2023 Telephone [facility] MEDICINE [address] [place] [employer] [place], [place] [phone] Hallie Mcclendon MD 230 [place], [place] [phone] Med Refill Social History Tobacco Use Types [...] 1000MG capsule capsule To be sent to: [facility] [place] [place] - [address] [place] [address] documented in this encounter Plan of Treatment Not on file documented as of this encounter Visit Diagnoses Not on filedocumented in this encounter Additional Health Concerns Assessment Noted Time PHQ-9 Depression Total Score: 0 08/09/19 24 9:27 AM EDT documented as of this encounter Care Teams Lens Engraver Relationship Specialty Start Date End Date Hallie Mcclendon MD 230 [facility] [place] [address] PCP - General Family Medicine 03/13/18 [facility] 07/05/19 documented as of this encounter
--- OUTSIDE RECORDS SUMMARY | 2025-02-27 18:44 | XMS_ITS | Encounter Summary ---
Author Organization [employer] Address 75 [facility] 7t [place] [address] Care Team Providers Care Senior Clinical Project Manager Name Role Phone Hallie Mcclendon MD Primary Care Provider [phone] Reason for Visit * Reason Comments Med Refill Encounter Details Date Type Department Care Team ([facility] st Contact Info) Description 02/25/2025 Refill [facility] MEDICINE 230 [place], [place] [phone] Hallie Mcclendon MD 230 [place], [place] [phone] Social History Tobacco Use Types Packs/Day Years [...] as of this encounter Care Teams Senior Clinical Project Manager Relationship Specialty Start Date End Date Hallie Mcclendon MD 230 [place] [address] PCP - General Family Medicine 03/13/18 [facility] 07/05/19 documented as of this encounter
--- OUTSIDE RECORDS SUMMARY | 2025-02-27 18:44 | XMS_ITS | Encounter Summary ---
Author Organization [employer] Address 75 [facility] 7t [place] [address] Care Team Providers Care Facilities Planner Name Role Phone Hallie Mcclendon MD Primary Care Provider [phone] Encounter Details Date Type Department Care Team ([facility] st Contact Info) Description 04/05/2024 Orders Only [facility] MEDICINE 230 [place] [address] Hallie Mcclendon MD [address] [place] [address] Social History Tobacco Use Types Packs/Day Years [...] documented as of this encounter Care Teams Facilities Planner Relationship Specialty Start Date End Date Hallie Mcclendon MD [address] [place] [address] PCP - General Family Medicine 03/13/18 [facility] 07/05/19 documented as of this encounter
--- OUTSIDE RECORDS SUMMARY | 2025-02-27 18:44 | XMS_ITS | Encounter Summary ---
Author Organization [employer] Address 75 [facility] 7t [place] [address] Care Team Providers Care Retirement Administrator Name Role Phone Hallie Mcclendon MD Primary Care Provider [phone] Reason for Visit * Reason Comments Med Refill Encounter Details Date Type Department Care Team ([facility] st Contact Info) Description 05/14/2024 Refill [facility] MEDICINE 230 [place], [place] [phone] Hallie Mcclendon MD 230 [place], [place] [phone] Social History Tobacco Use Types Packs/Day Years [...] documented as of this encounter Care Teams Retirement Administrator Relationship Specialty Start Date End Date Hallie Mcclendon MD [address] [place] [address] PCP - General Family Medicine 03/13/18 [facility] 07/05/19 documented as of this encounter
== END 2025-02-27 15:03 | disposition home or self-care (01) ==
LOC: HO.HUSH 14:33
PROVIDERS: PCP Family Medicine; Visit Provider Urology
DX: C61 Malignant neoplasm of prostate (principal); Z19.1 Hormone sensitive malignancy status
CPT/HCPCS: 99214; G2211

== ENCOUNTER → 2025-02-27 14:32 | Outpatient (BNVA) | payer OTHER, SELFPAY | PROVIDERS: PCP Family Medicine; Visit Provider Urology | DX: C61 Malignant neoplasm of prostate (principal); Z19.1 Hormone sensitive malignancy status | CPT/HCPCS: 99212 ==

== ENCOUNTER 2025-03-11 11:35 | Outpatient (AMB) | payer OTHER, SELFPAY ==
--- NOTE | 2025-03-11 11:36 | AM.OFFVISNUR ---
Intake Visit Reasons: [facility] Allergies No Known Allergies Allergy (Verified 01/29/25 11:00) Office Meds Eligard (6 month) 45 mg (6 month) subcutaneous syringe Performing Provider: Stevie Molina MD [facility] Administered by: Zaki Celeste LPN on 03/11/25 11:36 Dose Route Admin Location Dispensed Lot Number Expiration Date [facility] Glass Inserter 45 mg subcut left 45 mg [id number] 02/10/26 13825-394-21 [employer] 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
--- OUTSIDE RECORDS SUMMARY | 2025-03-11 15:36 | XMS_ITS | Encounter Summary ---
Author Organization [employer] Address [address] [facility] 7t [place] [address] Care Team Providers Care Baseball Club Manager Name Role Phone Hallie Mcclendon MD Primary Care Provider [phone] Encounter Details Date Type Department Care Team ([facility] st Contact Info) Description 04/27/2023 Orders Only [facility] MEDICINE 230 [place] [address] Hallie Mcclendon MD 230 [place] [address] Social History Tobacco Use Types Packs/Day Years [...] on filedocumented in this encounter Care Teams Baseball Club Manager Relationship Specialty Start Date End Date Hallie Mcclendon MD [address] [place] [address] PCP - General Family Medicine 03/13/18 [facility] 07/05/19 documented as of this encounter
--- OUTSIDE RECORDS SUMMARY | 2025-03-11 15:36 | XMS_ITS | Encounter Summary ---
Author Organization [employer] Address 75 [facility] [address]t [place] [address] Care Team Providers Care Commercial Banker Name Role Phone Hallie Mcclendon MD Primary Care Provider [phone] Reason for Visit * Reason Comments Med Refill Encounter Details Date Type Department Care Team ([facility] st Contact Info) Description 05/14/2024 Refill [facility] MEDICINE 230 [place], [place] [phone] Hallie Mcclendon MD 230 [place], [place] [phone] Social History Tobacco Use Types Packs/Day Years [...] as of this encounter Care Teams Commercial Banker Relationship Specialty Start Date End Date Hallie Mcclendon MD [address] [place] [address] PCP - General Family Medicine 03/13/18 [facility] 07/05/19 documented as of this encounter
--- OUTSIDE RECORDS SUMMARY | 2025-03-11 15:36 | XMS_ITS | Encounter Summary ---
Author Organization [employer] Address 75 [facility] 7t [place] [address] Care Team Providers Care Nascar Racer Name Role Phone Hallie Mcclendon MD Primary Care Provider [phone] Reason for Visit * Reason Comments Med Refill Encounter Details Date Type Department Care Team ([facility] st Contact Info) Description 07/13/2023 Refill [facility] MEDICINE 230 [place], [place] [phone] Hallie Mcclendon MD 230 [place], [place] [phone] Constipation, unspecified constipation type Social History Tobacco [...] type documented in this encounter Care Teams Nascar Racer Relationship Specialty Start Date End Date Hallie Mcclendon MD 230 [place] [address] PCP - General Family Medicine 03/13/18 [facility] 07/05/19 documented as of this encounter
--- OUTSIDE RECORDS SUMMARY | 2025-03-11 15:36 | XMS_ITS | Encounter Summary ---
Author Organization [employer] Address [address] [facility] 7t [place] [address] Care Team Providers Care Banquet Line Cook Name Role Phone Hallie Mcclendon MD Primary Care Provider [phone] Encounter Details Date Type Department Care Team ([facility] st Contact Info) Description 04/05/2024 Orders Only [facility] MEDICINE 230 [place] [address] Hallie Mcclendon MD 230 [place] [address] Social History Tobacco Use Types Packs/Day Years [...] documented as of this encounter Care Teams Banquet Line Cook Relationship Specialty Start Date End Date Hallie Mcclendon MD [address] [place] [address] PCP - General Family Medicine 03/13/18 [facility] 07/05/19 documented as of this encounter
--- OUTSIDE RECORDS SUMMARY | 2025-03-11 15:36 | XMS_ITS | Encounter Summary ---
Author Organization [employer] Address 75 [facility] 7t [place] [address] Care Team Providers Care Screedman/Laborer Name Role Phone Hallie Mcclendon MD Primary Care Provider [phone] Reason for Visit * Reason Onset Date Comments FYI 09/26/2024 Encounter Details Date Type Department Care Team ([facility] st Contact Info) Description 09/26/2024 Telephone [facility] MEDICINE 230 [place], [place] [phone] Hallie Mcclendon MD 230 [place], [place] [phone] FYI Social History Tobacco Use Types Packs/Day [...] documented as of this encounter Care Teams Screedman/Laborer Relationship Specialty Start Date End Date Hallie Mcclendon MD [address] [place] [address] PCP - General Family Medicine 03/13/18 [facility] 07/05/19 documented as of this encounter
--- OUTSIDE RECORDS SUMMARY | 2025-03-11 15:36 | XMS_ITS | Clinical Summary ---
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 do not lie down for 30 minutes 4 tablet 11 5 5:48 PM EST 03/18/19 025 Discontinued Active Problems Problem Noted Date [...] (01/31/2025 5:59 AM EST): - following with [facility] smoking 1 year ago Assessment & Plan (10/28/2024 5:35 PM EDT): - [facility] with [facility] 7 months ago Assessment & Plan (04/06/2024 6:43 AM EST): - following with [facility] - quit smoking 7 months ago Assessment & Plan (11/20/2023 10:12 AM EDT): - following with [facility] - quit smoking 4 months ago Assessment & Plan (08/11/2023 6:11 PM EDT): - following with [facility] Family history of colon cancer 08/04/2023 GERD (gastroesophageal reflux disease) History of sphincterotomy of sphincter of Oddi 0 08/04/2023 Sessile colonic polyp 08/04/2023 Assessment & Plan (11/20/2023 10:15 AM EDT): - seen by [facility], and is being scheduled for colonoscopy in September 2023 Assessment & Plan (08/11/2023 6:12 PM EDT): - seen by [facility], and is being scheduled for colonoscopy [...] and right lower lobe. -recently seen by information security analyst. Because there was no pulmonary nodule, surveillance [...] and right lower lobe. -recently seen by information security analyst. Because there was no pulmonary nodule, surveillance [...] and right lower lobe. -recently seen by information security analyst. Because there was no pulmonary nodule, surveillance [...] and right lower lobe. -recently seen by information security analyst. 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 LVEF 30-35%. Moderate aortic regurgitation. -07/05/22 Echocardiogram results showed EF 25-30%. LV size and wall thickness are normal. Mid to distal, anterior, anteroseptal, and apical espino are akinetic. Mild aortic regurgitation. -07/04/23 echocardiogram: Mod global hypokynesis. SDEL33-18%. Mild-to-mod aortic regurgitation. No . Mild thickening of anterior and posterior mitral valve leaflets. No pulmonary hypertension. -current medications: Entresto 49 mg-51 mg BID, aspirin 81 mg daily; metoprolol succinate 25 mg daily; furosemide 20 mg daily - Patient was evaluated for ICD / BiV Devices. Currently still being an option, but not urgent per upper tier. Reassess in 6 mo follow up and 12-mo TTE per upper tier. - Continuing optimizing risk factor management, medication adherence, and working on lifestyle modifications - Psychiatric medications cause prolonged QT. Monitor closely. 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 LVEF 30-35%. Moderate aortic regurgitation. -07/05/22 Echocardiogram results showed EF 25-30%. LV size and wall thickness are normal. Mid to distal, anterior, anteroseptal, and apical espino are akinetic. Mild aortic regurgitation. -07/04/23 echocardiogram: Mod global hypokynesis. UWBF93-92%. Mild-to-mod aortic regurgitation. No . Mild thickening of anterior and posterior mitral valve leaflets. No pulmonary hypertension. -current medications: Entresto 49 mg-51 mg BID, aspirin 81 mg daily; metoprolol succinate 25 mg daily; furosemide 20 mg daily - Patient was evaluated for ICD / BiV Devices. Currently still being an option, but not urgent per upper tier. Reassess in 6 mo follow up and 12-mo TTE per upper tier. - Continuing optimizing risk factor management, medication adherence, and working on lifestyle modifications - Psychiatric medications cause prolonged QT. Monitor closely. 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 LVEF 30-35%. Moderate aortic regurgitation. -07/05/22 Echocardiogram results showed EF 25-30%. LV size and wall thickness are normal. Mid to distal, anterior, anteroseptal, and apical espino are akinetic. Mild aortic regurgitation. -07/04/23 echocardiogram: Mod global hypokynesis. NUTK26-95%. Mild-to-mod aortic regurgitation. No . Mild thickening of anterior and posterior mitral valve leaflets. No pulmonary hypertension. -current medications: Entresto 49 mg-51 mg BID, aspirin 81 mg daily; metoprolol succinate 25 mg daily; furosemide 20 mg daily - Patient was evaluated for ICD / BiV Devices. Currently still being an option, but not urgent per upper tier. Reassess in 6 mo follow up and 12-mo TTE per upper tier. - Continuing optimizing risk factor management, medication adherence, and working on lifestyle modifications - Psychiatric medications cause prolonged QT. Monitor closely. 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 -nuclear stress test in June 2021 which was not diagnostic for ischemia -09/08/21 TTE Moderate global hypokinesis. LVEF 30-35%. Moderate aortic regurgitation. -07/05/22 Echocardiogram results showed EF 25-30%. LV size and wall thickness are normal. Mid to distal, anterior, anteroseptal, and apical espino are akinetic. Mild aortic regurgitation. -07/04/23 echocardiogram: Mod global hypokynesis. APQP06-78%. Mild-to-mod aortic regurgitation. No . Mild thickening of anterior and posterior mitral valve leaflets. No pulmonary hypertension. -current medications: Entresto 49 mg-51 mg BID, aspirin 81 mg daily; metoprolol succinate 25 mg daily - Patient was evaluated for ICD / BiV Devices. Currently still being an option, but not urgent per upper tier. Reassess in 6 mo follow up and 12-mo TTE per upper tier. - Continuing optimizing risk factor management, medication adherence, and working on lifestyle modifications - Psychiatric medications cause prolonged QT. Monitor closely. 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 -nuclear stress [...] being an option, but not urgent per upper tier. Reassess in 6 mo follow up and 12-mo TTE per upper tier. - Continuing optimizing risk factor management, medication adherence, and working on lifestyle modifications - Psychiatric medications cause prolonged QT. Monitor closely. 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 -nuclear stress [...] being an option, but not urgent per upper tier. Reassess in 6 mo follow up and 12-mo TTE per upper tier. - Continuing optimizing risk factor management, medication adherence, and working on lifestyle modifications - Psychiatric medications cause prolonged QT. Monitor closely. 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 -nuclear stress [...] being an option, but not urgent per upper tier. Reassess in 6 mo follow up and 12-mo TTE per upper tier. 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 Referred for biventricular device placement evaluation. Pt declined ICD or BiV devices. Continuing medical management with Entresto. -nuclear stress test in June 2021 which was not diagnostic for ischemia -due to his low EF, pacemaker may be indicated -follow-up with upper tier as scheduled -continue working on lifestyle modifications [...] - Consider intensifying statin therapy and/or changing Stanton 3 to icosapent ethyl. Assessment & Plan [...] -followed by psychiatrist, Dr. Vazquez at [facility] -continue Trazodone, Sertaline and Quetiapine with caution (DDI ? 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 Vazquez at [facility] -continue Trazodone, Seroquel and Quetiapine with caution (DDI ? prolonged OTc) -requested psychiatrist to review and adjust medications if possible due to his heart failure. Assessment & Plan (08/05/2022 10:20 AM EDT): -followed by psychiatristDr. Vazquez at [facility] -continue Trazodone, Seroquel and Quetiapine with caution (DDI ? prolonged OTc) -requested psychiatrist to review and adjust medications if possible due to his heart failure. Assessment & Plan (04/21/2022 9:30 AM EST): -followed by psychiatristDr. Vazquez at [facility] -continue Trazodone, Seroquel and Quetiapine with caution (DDI ? prolonged OTc) -requested psychiatrist to review and adjust medications if possible due to his heart failure. 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 Bocanegra in Feb 2024 -Last exacerbation in Nov 2022. Prescribed Augmentin by information security analyst. -exacerbation frequency 4 times per year -Hx intubation, mainly for overdose (opioid and BZD) -PFT 03/25/20 Bronchial asthma -continue Fluticasone / umeclidinium / vilanterol as directed -continue theophylline as prescribed -Proper mouth care discussed again -Continue albuterol HFA and nebulizer prn as rescue -Continue smoking cessation effort and maintaining abstinence Assessment & Plan (10/28/2024 5:35 PM EDT): -followed by [facility] information security analyst, last seen by Dr. Bocanegra in Feb 2024 -Last exacerbation in Nov 2022. Prescribed Augmentin by information security analyst. -exacerbation frequency 4 times per year -Hx intubation, mainly for overdose (opioid and BZD) -PFT 03/25/20 Bronchial asthma -continue Fluticasone / umeclidinium / vilanterol as directed -continue theophylline as prescribed -Proper mouth care discussed again -Continue albuterol HFA and nebulizer prn as rescue -Continue smoking cessation effort and maintaining abstinence Assessment & Plan (04/06/2024 6:46 AM EST): -followed by [facility] information security analyst, last seen by Dr. Bocanegra in Feb 2024 -Last exacerbation in Nov 2022. Prescribed Augmentin by information security analyst. -exacerbation frequency 4 times per year -Hx intubation, mainly for overdose (opioid and BZD) -PFT 03/25/20 Bronchial asthma -continue Fluticasone / umeclidinium / vilanterol as directed -continue theophylline as prescribed -Proper mouth care discussed again -Continue albuterol HFA and nebulizer prn as rescue -Continue smoking cessation effort and maintaining abstinence Assessment & Plan (11/20/2023 10:13 AM EDT): -followed by [facility] information security analyst, last seen on 03/23/23. -Last exacerbation in Nov 2022. Prescribed Augmentin by information security analyst. -exacerbation frequency 4 times per year -Hx intubation, mainly for overdose (opioid and BZD) -PFT 03/25/20 Bronchial asthma -continue Fluticasone / umeclidinium / vilanterol as directed -continue theophylline as prescribed -Proper mouth care discussed again -Continue albuterol HFA and nebulizer prn as rescue -Work on smoking cessation Assessment & Plan (08/09/2023 4:52 AM EDT): >>ASSESSMENT AND PLAN FOR CHRONIC OBSTRUCTIVE LUNG DISEASE ([facility]) WRITTEN ON 08/03/2022 10:23 AM BY BUTCH REDMOND -followed by [facility] information security analyst, last seen on 04/07/22. -Last exacerbation in February 2022, bronchitis exacerbation. Rx azithromycin and annual CT Scan. Pt to continue Anoro and theophylline -Pt had 2 antibiotic courses for aspiration pneumonia in Mar / Apr 2021 and 1 antibiotic / prednisone for COPD exacerbation in May 2021 -exacerbation frequency 5 times per year (4025-4966) -Hx intubation, mainly for overdose (opioid and BZD) -PFT 03/25/20 Bronchial asthma -continue Trelegy as directed -continue theophylline as prescribed -Proper mouth care discussed again -Continue albuterol HFA and nebulizer prn as rescue -Work on smoking cessation Assessment & Plan (08/09/2023 4:52 AM EDT): >>ASSESSMENT AND PLAN FOR CHRONIC OBSTRUCTIVE LUNG DISEASE ([facility]) WRITTEN ON 04/01/2023 6:48 AM BY HALLIE CHAVIRA MD -followed by [facility] information security analyst, last seen on 03/23/23. -Last exacerbation in Nov 2022. Prescribed Augmentin by information security analyst. -exacerbation frequency 4 times per year -Hx intubation, mainly for overdose (opioid and BZD) -PFT 03/25/20 Bronchial asthma -continue Fluticasone / umeclidinium / vilanterol as directed -continue theophylline as prescribed -Proper mouth care discussed again -Continue albuterol HFA and nebulizer prn as rescue -Work on smoking cessation Assessment & Plan (08/11/2023 6:11 PM EDT): -followed by [facility] information security analyst, last seen on 03/23/23. -Last exacerbation in Nov 2022. Prescribed Augmentin by information security analyst. -exacerbation frequency 4 times per year -Hx [...] ASTHMA WITH COPD (CHRONIC OBSTRUCTIVE PULMONARY DISEASE) ([facility]) WRITTEN ON 04/21/2022 9:31 AM BY BUTCH REDMOND -followed by [facility] information security analyst, last seen on 04/07/22 -Last exacerbation in February 2022, bronchitis exacerbation. Rx azithromycin and annual CT Scan. Pt to continue Anoro and theophylline -Pt had 2 antibiotic courses for aspiration pneumonia in MarApr 2021 and 1 antibiotic / prednisone for COPD exacerbation in May 2021 -exacerbation frequency 5 times per year (5939-2170) -Hx intubation, mainly for overdose (opioid and BZD) -PFT 03/25/20 Bronchial asthma -continue Trelegy as directed -continue theophylline as prescribed -Proper mouth care discussed again -Continue albuterol HFA and nebulizer prn as rescue -Work on smoking cessation >>ASSESSMENT AND PLAN FOR CHRONIC OBSTRUCTIVE LUNG DISEASE ([facility]) WRITTEN ON 04/21/2022 9:31 AM BY BUTCH REDMOND -followed by [facility] information security analyst, last seen on 04/07/22. -Last exacerbation in February 2022, bronchitis exacerbation. Rx azithromycin and annual CT Scan. Pt to continue Anoro and theophylline -Pt had 2 antibiotic courses for aspiration pneumonia in MarApr 2021 and 1 antibiotic / prednisone for COPD exacerbation in May 2021 -exacerbation frequency 5 times per year (2430-5570) -Hx intubation, mainly for overdose (opioid and BZD) -PFT 03/25/20 Bronchial asthma -continue Trelegy as directed -continue theophylline as prescribed -Proper mouth care discussed again -Continue albuterol HFA and nebulizer prn as rescue -Work on smoking cessation Schizophrenia 07/19/2011 Assessment & Plan (01/31/2025 5:59 AM EST): -followed by psychiatrist, Dr. Vazquez at [facility] -continue Trazodone, Sertraline and Quetiapine with caution (DDI ? prolonged OTc) -animal therapy with dog has been effective. 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 Assessment & Plan (10/28/2024 5:34 PM EDT): -followed by psychiatristDr. Vazquez at [facility] -continue Trazodone, Sertraline and Quetiapine with caution (DDI ? prolonged OTc) -animal therapy with dog has been effective. 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 Assessment & Plan (04/06/2024 7:05 AM EST): -followed by psychiatristDr. Vazquez at [facility] -continue Trazodone, Sertraline and Quetiapine with caution (DDI ? prolonged OTc) -animal therapy with dog has been effective. 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 Assessment & Plan (11/20/2023 10:24 AM EDT): -followed by psychiatristDr. Vazquez at [facility] -continue Trazodone, Seroquel and Quetiapine with caution (DDI ? prolonged OTc) -requested psychiatrist to review and adjust medications if possible due to his heart failure. Assessment & Plan (08/09/2023 4:56 AM EDT): -followed by psychiatristDr. Vazquez at [facility] -continue Trazodone, Seroquel and Quetiapine with caution (DDI ? prolonged OTc) -requested psychiatrist to review and adjust medications if possible due to his heart failure. Assessment & Plan (08/05/2022 10:20 AM EDT): -followed by psychiatrDr. Taylor castañeda at [facility] -continue Trazodone, Seroquel and Quetiapine with caution (DDI ? prolonged OTc) -requested psychiatrist to review and adjust medications if possible due to his heart failure. Resolved Problems Problem Noted Date Diagnosed Date Resolved Date Aspiration pneumonia ([facility]) 08/01/2024 01/31/2025 Assessment & Plan (08/01/2024 11:03 [...] METs. Pt was already seen by his information security analyst and upper tier again in July 2022, and was cleared [...] Type Department Care Team Description 02/25/2025 Refill [facility] [address] [place] [id number] Hallie Chavira MD 02/13/2025 Orders Only GENERIC EXTERNAL DATA DEPARTMENT Provider, Generic External Data 01/29/2025 Refill [facility] [address] [place] [phone] Hallie Chavira MD Hypomagnesemia 01/20/2025 10:00 AM EST Office Visit [facility] [address] [place] [phone] Hallie Chavira MD Heart failure with reduced ejection fraction (HCC) (Primary Dx); Encounter for immunization; Encounter for vaccination; Dietary counseling; Exercise counseling; Overweight; Venous insufficiency; Primary hypertension; Hypomagnesemia; Elevated PSA; Undifferentiated schizophrenia (CMS/HCC) (HCC); Pulmonary fibrosis (HCC); 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) (HCC) 01/20/2025 Telephone [facility] [address] [place] [phone] Hallie Chavira MD Record Request 01/20/2025 Travel 01/17/2025 Telephone [facility] [address] [place] [address] Hallie Chavira MD chartprep 12/31/2024 Refill [facility] [address] [place] [address] Hallie Chavira MD Hypomagnesemia 12/30/2024 Refill [facility] [address] [place], [place] [phone] Hallie Chavira MD Anemia, unspecified type; Hypomagnesemia 12/19/2024 Telephone [facility] [address] [place], [place] [phone] Hallie Chavira MD FYI from Last 3 Months Immunizations Immunization Administration [...] MULTIPLEX IHC Routine 02/13/2025 8:50 AM EST LIPID PANEL WITH REFLEX TO DIRECT LDL Routine 12/03/2024 11:26 AM EDT Dyslipidemia HEMOGLOBIN A1C Routine 10/16/2024 10:37 AM EDT Urinary incontinence, unspecified type from Last 3 Months or Most Recently Relevant to Health Maintenance Results * Multiplex IHC (02/13/2025 8:50 AM EST) 02/13/2025 8:50 AM EST 02/13/2025 9:51 AM EST Pras[facility] - 02/18/2025 1:49 PM EST ----- ------- Name: Marc Robsandra Joseph White Age/Sex: 84/M : 1940 Unit#: [id number] Attend Dr: Stevie Molina MD Re02/13/25 Status: DEP REF Location: [facility] Disch: ----- ------- SPEC : [id number] RECD: 02/13/25 STATUS: JONNY BOLANOS NUM: [id number] DANIELLE: 02/13/25 [facility] DR: Stevie Molina MD ENTERED: 02/13/251012 SP TYPE: Surgical OTHR DR: Hallie Chavira MD ORDERED: Multiplex IHC/6, PIN4/6, Prostate biopsy Diagnosis Prostate needle biopsies: A: Left base lateral: Prostatic adenocarcinoma, 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 B: Left base medial: Prostatic adenocarcinoma, Englewood score 3+4=7 (grade group 2) involving 15% of the tissue. C: Left mid lateral: Prostatic adenocarcinoma, Englewood score 3+3=6 (grade group 1) involving 5% of the tissue. D: Left mid medial: Benign prostatic tissue; no malignancy identified. E: Left apex lateral: Prostatic adenocarcinoma, Englewood score 3+3=6 (grade group 1) involving 15% [...] Joseph Galvan Age/Sex: 84/M : 1940 Unit#: [id number] Attend Dr: Stevie Molina MD Re02/13/25 Status: DEP REF Location: [facility] Disch: ----- ------- SPEC : [id number] RECD: 02/13/25 STATUS: JONNY CICI NUM: [id number] DANIELLE: 02/13/2550 [facility] DR: Stevie Molina MD ENTERED: 02/13/25-1012 SP [...] Joseph Galvan Age/Sex: 84/M : 1940 Unit#: [id number] Attend Dr: Stevie Molina MD Re02/13/25 Status: [facility] REF Location: [facility] Disch: ----- ------- SPEC : [id number] RECD: 02/13/25 STATUS: JONNY BOLANOS NUM: [id number] DANIELLE: 02/13/2550 [facility] DR: Stevie Molina MD ENTERED: 02/13/25-1012 SP [...] developed and their performance characteristics determined by [facility]. They have not been cleared or approved by the U.S. Food and Drug Administration (FDA). However, the FDA has determined that such clearance or approval is not necessary. This laboratory is certified under the Clinical Laboratory Improvement Amendments of 1988 (CLIA) as qualified to perform high complexity clinical laboratory testing. Copies To: Stevie Molina MD [facility] [address] [place] [address] [address] [place] [address] Hallie Chavira MD [address] [address] CONTINUED ON NEXT PAGE ----- ------- Name: Marc WhiteJoseph Age/Sex: 84/M : 1940 Unit#: [id number] Attend Dr: Stevie Molina MD Re02/13/25 Status: DEP REF Location: [facility] Disch: ----- ------- SPEC : [id number] RECD: 02/13/25 STATUS: JONNY BOLANOS NUM: [id number] DANIELLE: 02/13/25 [facility] DR: Stevie Molina MD ENTERED: 02/13/25 SP TYPE: Surgical OTHR DR: Hallie Chavira MD ORDERED: Multiplex IHC/6, PIN4/6, Prostate biopsy Copies To: (Continued) [phone] ----- ------- Signed (signature on file) Gorge Rivera MD 02/18/25 [id number] ----- ------- END OF REPORT us Generic External Data Provider LAB CYTOGENETICS ORDERABLES Final Result [facility] [address] [place] [address] [phone] * Lipid Panel with Reflex to Direct LDL (12/03/2024 11:26 AM EDT) Triglycerides 106 <150 mg/dL [facility] Comment:Desirable Triglyceri de: less than 150 mg/dLBorderline High Triglyceride 150-199 mg/dLHigh Triglyceride: 200-499 mg/dLVery High Triglyceride: greater than or equal to 5OO mg/dL Cholesterol 116 <200 mg/dL [facility] Comment:Desirable Cholestero l: less than 200 mg/dLBorderline High Cholesterol: 200-239 mg/dLHigh Cholesterol: greater than 239 mg/dL LDL Cholesterol Calculated 53 <100 mg/dL [facility] Comment:Desirable LDL: less than 100 mg/dLNear Optimal/Above Optimal LDL: 110- 129 mg/dLBorderline High LDL: 130-159 mg/dLHigh LDL: 160-189 mg/dLVery High LDL: greater than or equal to 190 mg/dL HDL Cholesterol 42 >40 mg/dL [facility] Comment:Desirable HDL: great er than 40 mg/dL Note: This HDL assay may give artificially low results in patients with liver disease. Blood 12/03/2024 11:2 6 AM EDT 12/03/2024 11:26 AM EDT us Hallie Chavira MD LAB BLOOD ORDERABLES Final Resul t [facility] [address] [place] [phone] * Hemoglobin A1c (10/16/2024 10:37 AM EDT) Hemoglobin A1c 5.9 <6.0 % [facility] Comment:Hemoglobin A1C Refer ence Range Adults: 4.8 - 6.0 % Non diabetic: < 6.0 % Goal: < 7.0 %Additional Action Suggested: > 8.0 %Note: Hemoglobin A1c results are invalid for patients with abnormal amounts of HbF. Blood transfusions may impact the HbA1c concentration in the patient sample. Estimated Average Glucose 123 mg/dL [facility] Comment:eAG = Estimated ave rage glucose which is %A1C expressed asaverage glucose, using the formula of the E2F-PnftkmiLtknybr Glucose study (ADAG), Diabetes Care, Vol.31,#8,Oct. 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
--- OUTSIDE RECORDS SUMMARY | 2025-03-11 15:36 | XMS_ITS | Encounter Summary ---
Author Organization [employer] Address 75 [facility] 7t [place] [address] Care Team Providers Care Editorial Writer Name Role Phone Hallie Mcclendon MD Primary Care Provider [phone] Reason for Visit * Reason Onset Date Comments Med Refill 08/12/2024 Encounter Details Date Type Department Care Team ([facility] st Contact Info) Description 08/12/2024 Telephone [facility] MEDICINE [address] [place], [place] [phone] Hallie Mcclendon MD [address] [place], [place] [phone] Med Refill Social History Tobacco Use Types [...] 10:26 AM EDT Medication was sent to [facility] on 07/30/24 #90 with 3 refills. * Telephone Encounter - Wally Garcia - 08/12/2024 10:14 AM EDT TC from pt requesting medication refill. Medications needing refill: omeprazole (PriLOSEC) [address] capsule Multiple Vitamin (Multivitamin) tablet To be sent to: [facility] - [place], [place] - [address] [place] [address] documented in this encounter Plan of Treatment Not on file documented as of this encounter Visit Diagnoses Not on filedocumented in this encounter Additional Health Concerns Assessment Noted Time PHQ-9 Depression Total Score: 0 11/20/19 24 9:22 AM EDT documented as of this encounter Care Teams Editorial Writer Relationship Specialty Start Date End Date Hallie Mcclendon MD [address] [place] [address] PCP - General Family Medicine 03/13/18 [facility] 07/05/19 documented as of this encounter
--- OUTSIDE RECORDS SUMMARY | 2025-03-11 15:36 | XMS_ITS | Encounter Summary ---
Author Organization [employer] Address 75 [facility] 7t [place] [address] Care Team Providers Care Fundraiser Name Role Phone Hallie Mcclendon MD Primary Care Provider [phone] Reason for Visit * Reason Onset Date Comments Med Refill 09/15/2023 Encounter Details Date Type Department Care Team ([facility] st Contact Info) Description 09/15/2023 Telephone [facility] MEDICINE [address] [place], [place] [phone] Hallie Mcclendon MD [address] [place], [place] [phone] Med Refill Social History Tobacco Use Types [...] 1000MG capsule capsule To be sent to: [facility] - [place], [place] - [address] [place] [address] documented in this encounter Plan of Treatment Not on file documented as of this encounter Visit Diagnoses Not on filedocumented in this encounter Additional Health Concerns Assessment Noted Time PHQ-9 Depression Total Score: 0 08/09/19 24 9:27 AM EDT documented as of this encounter Care Teams Fundraiser Relationship Specialty Start Date End Date Hallie Mcclendon MD 230 [place] [address] PCP - General Family Medicine 03/13/18 [facility] 07/05/19 documented as of this encounter
--- OUTSIDE RECORDS SUMMARY | 2025-03-11 15:36 | XMS_ITS | Encounter Summary ---
Author Organization [employer] Address 75 [facility] 7t [place] [address] Care Team Providers Care Independent Producer Name Role Phone Hallie Mcclendon MD Primary Care Provider [phone] Reason for Referral * Consultation (Urgent) - Closed Specialty Diagnoses / Procedures Referred By Mya t Referred To Contact Orthopaedic Surgery Diagnoses Left forearm pain Fall, subsequent encounter Hallie Mcclendon MD [address] [place] [address] Phone: tel: fax: [facility] [address] [place] [address] Dr [address] [place] [address] Phone: tel: Referral ID Status Reason Start Date Expiration Date V isits Requested Visits Authorized [id number] Closed Specialty Services Required 09/22/2023 09/21/2024 1 1 Encounter Details Date Type Department Care Team (Late st Contact Info) Description 09/22/2023 Orders Only [facility] MEDICINE [address] [place], [place] [phone] Hallie Mcclendon MD [address] [place], [place] [phone] Left forearm pain (Primary Dx); Fall, subsequent [...] documented as of this encounter Care Teams Independent Producer Relationship Specialty Start Date End Date Hallie Mcclendon MD [address] [place] [phone] PCP - General Family Medicine 03/13/18 [facility] 07/05/19 documented as of this encounter
--- OUTSIDE RECORDS SUMMARY | 2025-03-11 15:36 | XMS_ITS | Encounter Summary ---
Author Organization [employer] Address 75 [facility] 7t [place] [address] Care Team Providers Care Quick Sketch Artist Name Role Phone Hallie Mcclendon MD Primary Care Provider [phone] Reason for Visit * Reason Comments Med Refill Encounter Details Date Type Department Care Team ([facility] st Contact Info) Description 07/13/2023 Refill [facility] [address] [place], [place] [phone] Hallie Mcclendon MD [address] [place], [place] [phone] Constipation, unspecified constipation type Social History Tobacco [...] type documented in this encounter Care Teams Quick Sketch Artist Relationship Specialty Start Date End Date Hallie Mcclendon MD 230 [place] [address] PCP - General Family Medicine 03/13/18 [facility] 07/05/19 documented as of this encounter
--- OUTSIDE RECORDS SUMMARY | 2025-03-11 15:37 | XMS_ITS | Encounter Summary ---
Author Organization [employer] Address 75 [facility] 7t [place] [address] Care Team Providers Care Care Professional Name Role Phone Hallie Mcclendon MD Primary Care Provider [phone] Reason for Visit * Reason Onset Date Comments FYI 12/19/2024 Encounter Details Date Type Department Care Team ([facility] st Contact Info) Description 12/19/2024 Telephone [facility] MEDICINE [address] [place], [place] [phone] Hallie Mcclendon MD [address] [place], [place] [phone] FYI Social History Tobacco Use Types Packs/Day [...] - 12/19/2024 12:39 PM EDT Tc from [place] with [facility] wanted to report that when [...] documented as of this encounter Care Teams Care Professional Relationship Specialty Start Date End Date Hallie Mcclendon MD [address] [place] [address] PCP - General Family Medicine 03/13/18 [facility] 07/05/19 documented as of this encounter
--- OUTSIDE RECORDS SUMMARY | 2025-03-11 15:37 | XMS_ITS | Encounter Summary ---
Author Organization [employer] Address 75 [facility] 7t [place] [address] Care Team Providers Care Renewal Specialist Name Role Phone Hallie Mcclendon MD Primary Care Provider [phone] Encounter Details Date Type Department Care Team (Late st Contact Info) Description 04/01/[address] [facility] MEDICINE [address] [place] [address] Yuliana Barrios, RN Social History Tobacco Use [...] on filedocumented in this encounter Care Teams Renewal Specialist Relationship Specialty Start Date End Date Hallie Mcclendon MD [address] [place] [address] PCP - General Family Medicine 03/13/18 [facility] 07/05/19 documented as of this encounter
--- OUTSIDE RECORDS SUMMARY | 2025-03-11 15:37 | XMS_ITS | Encounter Summary ---
Author Organization [employer] Address 75 [facility] 7t [place] [address] Care Team Providers Care Greenhouse Florist Name Role Phone Hallie Mcclendon MD Primary Care Provider [phone] Encounter Details Date Type Department Care Team (Late st Contact Info) Description 06/20/[address] [facility] MEDICINE [address] [place] [address] Hallie Mcclendon MD [address] [place], [place] [phone] Social History Tobacco Use Types Packs/Day Years [...] on filedocumented in this encounter Care Teams Greenhouse Florist Relationship Specialty Start Date End Date Hallie Mcclendon MD [address] [place] [address] PCP - General Family Medicine 03/13/18 [facility] 07/05/19 documented as of this encounter
--- OUTSIDE RECORDS SUMMARY | 2025-03-11 15:37 | XMS_ITS | Encounter Summary ---
Author Organization [employer] Address 75 [facility] 7t [place] [address] Care Team Providers Care Financial Dealers Name Role Phone Hallie Mcclendon MD Primary Care Provider [phone] Reason for Visit * Reason Comments Med Refill Encounter Details Date Type Department Care Team (Late st Contact Info) Description 06/14/2022 Refill [facility] [address] [place], [place] [phone] Hallie Mcclendon MD [address] [place], [place] [phone] Anemia in other chronic diseases classified elsewhere [...] elsewhere documented in this encounter Care Teams Financial Dealers Relationship Specialty Start Date End Date Hallie Mcclendon MD 230 [place], [place] [phone] PCP - General Family Medicine 03/13/18 [facility] 07/05/19 documented as of this encounter
--- OUTSIDE RECORDS SUMMARY | 2025-03-11 15:37 | XMS_ITS | Encounter Summary ---
Author Organization [employer] Address 75 [facility] 7t [place] [address] Care Team Providers Care General Office Dispatcher Name Role Phone Hallie Mcclendon MD Primary Care Provider [phone] Reason for Referral * Consultation (Routine) - Authorized Specialty Diagnoses / Procedures Referred By Contangel t Referred To Contact Pharmacy Diagnoses Hypertension Kiersten Burkett MD [address] [place] [address] Phone: tel: fax: Referral ID Status Reason Start Date Expiration Date Visits Requested Visits Authorized [id number] Authorized Continuity of Care 07/18/2024 07/18/2025 6 6 Encounter Details Date Type Department Care Team (Late st Contact Info) Description 07/17/2024 Orders Only [facility] MEDICINE [address] [place], [place] [phone] Kiersten Burkett MD [address] [place], [place] [phone] Hypertension (Primary Dx) Social History Tobacco Use [...] documented as of this encounter Care Teams General Office Dispatcher Relationship Specialty Start Date End Date Hallie Mcclendon MD [address] [place] [address] PCP - General Family Medicine 03/13/18 [facility] 07/05/19 documented as of this encounter
--- OUTSIDE RECORDS SUMMARY | 2025-03-11 15:37 | XMS_ITS | Encounter Summary ---
Author Organization [employer] Address 75 [facility] 7t [place] [address] Care Team Providers Care Scientific Research Manager Name Role Phone Hallie Mcclendon MD Primary Care Provider [phone] Encounter Details Date Type Department Care Team (Late st Contact Info) Description 12/09/2022 Orders Only [facility] [address] [place] [address] Hallie Mcclendon MD [address] [place] [address] Hematemesis, unspecified whether nausea present (Primary Dx); [...] B12 >2,000(H ) 200 - 900 pg/mL [facility] Comment:NORMAL 200-900 PG/ML INDETERMINATE 160-199 PG/ML DEFICIENT < 160 PG/ML Folate 10.6 > or = 4.0 ng/mL [facility] Comment:Reference Values:> o r = 4.0 ng/mL< 4.0 ng/mL suggests folate deficiency Methotrexate, aminopterin and folinic acid(leucovorin) are chemotherapeutic agents whose molecularstructures are similar to folate; therefore, the Architectfolate assay cannot be used for patients using these drugs. 12/13/2022 10:0 7 AM EDT 12/13/2022 10:07 AM EDT Hallie Mcclendon MD LAB BLOOD ORDERABLES Final Resul t Performing Organization Address City/[facility] Co de Phone Number [facility] [address] [place] [phone] * (ABNORMAL) Iron And Total Iron Binding Capacity (12/13/2022 10:07 AM EDT) Iron 131 45 - 160 mcg/dL [facility] Total Iron Binding Capacity 251 228 - 428 mcg/dL [facility] Percent Iron Saturation 52(H) 15 - 50 % [facility] Unsaturated Iron Binding 120 ug/dL [facility] Blood Venous blood specimen / Unknown 12/13/2022 10:07 AM EDT 12/13/2022 10:07 AM EDT us Hallie Mcclendon MD LAB BLOOD ORDERABLES Final Resul t Performing Organization Address [facility] Co de Phone Number [facility] [address] [place] [phone] * (ABNORMAL) Ferritin (12/13/2022 10:07 AM EDT) Ferritin 506(H) 20 - 250 ng/mL [facility] Blood Venous blood specimen / Unknown 12/13/2022 10:07 AM EDT 12/13/2022 10:07 AM EDT Hallie Mcclendon MD LAB BLOOD ORDERABLES Final Resul t Performing Organization Address City/[facility] Co de Phone Number [facility] [address] [place] [phone] * T4, Free (12/13/2022 10:07 AM EDT) Free T4 (Free Thyroxine) 0.90 0.71 - 1.85 ng/dL [facility] Blood Venous blood specimen / Unknown 12/13/2022 10:07 AM EDT 12/13/2022 10:07 AM EDT Hallie Mcclendon MD LAB BLOOD ORDERABLES Final Resul t Performing Organization Address City/[facility]/ZIP Co de Phone Number [facility] [address] [place] [phone] * TSH (12/13/2022 10:07 AM EDT) Thyroid Stimulating Hormone 2.54 0.32 - 4.0 uIU/mL [facility] Comment:TSH 3rd Generation ( [facility]) Blood Venous blood specimen / Unknown 12/13/2022 10:07 AM EDT 12/13/2022 10:07 AM EDT Hallie Mcclendon MD LAB BLOOD ORDERABLES Final Resul t Performing Organization Address City/[facility]/ZIP Co de Phone Number [facility] [address] [place] [phone] * Hemoglobin A1c (12/13/2022 10:07 AM EDT) Hemoglobin A1c 5.7 <6.0 % [facility] Comment:Hemoglobin A1C Refer ence Range Adults: 4.8 - 6.0 % Non diabetic: < 6.0 % Goal: < 7.0 %Additional Action Suggested: > 8.0 %Note: Hemoglobin A1c results are invalid for patients with abnormal amounts of HbF. Blood transfusions may impact the HbA1c concentration in the patient sample. Estimated Average Glucose 117 mg/dL [facility] Comment:eAG = Estimated ave rage glucose which is %A1C expressed asaverage glucose, using the formula of the Z2Q-CygnllnXxeujxu Glucose study (ADAG), Diabetes Care, Vol.31,#8,Oct. 2007 Blood Venous blood specimen / Unknown 12/13/2022 10:07 AM EDT 12/13/2022 10:07 AM EDT us Hallie Mcclendon MD LAB BLOOD ORDERABLES Final Resul t [facility] [address] [place] [phone] * (ABNORMAL) Comprehensive Metabolic Panel (12/13/2022 10:07 AM EDT) Sodium 139 135 - 145 mmol/L [facility] Potassium 3.8 3.3 - 5.1 mmol/L [facility] Chloride 106 96 - 108 mmol/L [facility] Carbon Dioxide 24 22 - 29 mmol/L [facility] Anion Gap 13 12 - 20 [facility] Urea Nitrogen (BUN) 21(H) 9 - 16 mg/dL [facility] Creatinine, Serum 1.06 0.5 - 1.4 mg/dL [facility] Estimated Glomerular Filt Rate >60 [facility] Comment:NOTE: For -Am erican individuals, multiply the result by 1.210.Chronic Kidney Disease: Estimated GFR < 60 mL/min/1.08g9Ymrjir Kidney Disease: Estimated GFR < 15 mL/min/1.73m2 Glucose 104 60 - 115 mg/dL [facility] Calcium 10.3(H) 8.4 - 10.2 mg/dL [facility] Bilirubin, Total 0.5 0.0 - 1.0 mg/dL [facility] Aspartate Amino Transferase 25 5 - 37 U/L [facility] Alanine Aminotransferase 24 0 - 40 U/L [facility] Total Protein 7.6 6.5 - 8.0 g/dL [facility] Albumin Level 4.3 3.5 - 5.0 g/dL [facility] Alkaline Phosphatase 88 39 - 117 U/L [facility] Blood Venous blood specimen / Unknown 12/13/2022 10:07 AM EDT 12/13/2022 10:07 AM EDT us Hallie Mcclendon MD LAB BLOOD ORDERABLES Final Resul t [facility] [address] [place], [place] [phone] * (ABNORMAL) CBC auto differential (12/13/2022 10:07 AM EDT) White Blood Count 8.1 4.8 - 10.8 X10*3/uL [facility] Red Blood Count 5.15 4.60 - 5.80 X10*6/uL [facility] Hemoglobin 15.5 14.0 - 18.0 g/dl [facility] Hematocrit 45.7 42.0 - 52.0 % [facility] Mean Corpuscular Volume 88.7 80.0 - 98.0 fL [facility] Mean Corpuscular Hemoglobin 30.1 27.0 - 33.0 pg [facility] Mean Corpuscular HGB Conc 33.9 31.0 - 36.0 g/dl [facility] Red Cell Distribution Width 12.7 11.0 - 16.0 % [facility] Platelet Count 182 160 - 400 X10*3/uL [facility] Mean Platelet Volume 10.5 9.4 - 12.4 fL [facility] Neutrophils Percent Auto 55.1 45 - 73 % [facility] Imm Gran Pct Auto 0.2 0.0 - 0.4 % [facility] Lymphocytes Percent Auto 30.2 20 - 40 % [facility] Monocytes Percent Auto 6.5 2 - 11 % [facility] Eosinophils Percent Auto 7.5(H) 0 - 4 % [facility] Basophils Percent Auto 0.5 0 - 2 % [facility] NRBC Pct Auto 0.0 0.0 - 0.2 /100WBC [facility] Neutrophils Absolute Auto 4.5 2.0 - 8.3 x10*3/uL [facility] Imm Gran Abs Auto 0.02 0.00 - 0.03 X10*3/uL [facility] Lymphocytes Absolute Auto 2.5 1.2 - 4.9 X10*3/uL [facility] Monocytes Absolute Auto 0.5 0.1 - 1.2 X10*3/uL [facility] Eosinophils Absolute Auto 0.6(H) 0.0 - 0.4 X10*3/uL [facility] Basophils Absolute Auto 0.0 0.0 - 0.2 X10*3/uL [facility] NRBC Abs Auto 0.000 0.0 - 0.012 X10*3/uL [facility] Blood Venous blood specimen / Unknown 12/13/2022 10:07 AM EDT 12/13/2022 10:07 AM EDT Hallie Mcclendon MD LAB BLOOD ORDERABLES Final Resul t Performing Organization Address City/[facility]/ZIP Co de Phone Number [facility] [address] [place] [phone] * B Type Natriuretic Peptide (BNP) (12/13/2022 10:07 AM EDT) B Type Natriuretic Peptide <10 <100 pg/mL [facility] Comment:For those patients w ho are being treated with Natrecor(nesiritide, recombinant BNP), BNP testing should beperformed at least two hours post treatment in order toensure that only endogenous levels of BNP are detected. Blood Venous blood specimen / Unknown 12/13/2022 10:07 AM EDT 12/13/2022 10:07 AM EDT Hallie Mcclendon MD LAB BLOOD ORDERABLES Final Resul t Performing Organization Address City/[facility]/ZIP Co de Phone Number [facility] [address] [place] [phone] documented in this encounter Visit Diagnoses Diagnosis Hematemesis, unspecified whether nausea present- Primary Heart failure with reduced ejection fraction (HCC) Dyslipidemia Other and unspecified hyperlipidemia Elevated TSH Other abnormal blood chemistry Class 1 obesity due to excess calories with serious comorbidity and body mass index (BMI) of 31.0 to 31.9 in adult documented in this encounter Care Teams Scientific Research Manager Relationship Specialty Start Date End Date Hallie Mcclendon MD [address] [place] [address] PCP - General Family Medicine 03/13/18 [facility] 07/05/19 documented as of this encounter
--- OUTSIDE RECORDS SUMMARY | 2025-03-11 15:37 | XMS_ITS | Encounter Summary ---
Author Organization [employer] Address 75 [facility] 7t [place] [address] Care Team Providers Care Job Coach/Job Developer Name Role Phone Hallie Mcclendon MD Primary Care Provider [phone] Reason for Referral * Consultation (Routine) - Canceled Specialty Diagnoses / Procedures Referred By Mya t Referred To Contact Pharmacy Diagnoses Hospital discharge follow-up Hallie Mcclendon MD [address] [place] [address] Phone: tel: fax: Referral ID Status Reason Start Date Expiration Date V isits Requested Visits Authorized [id number] Canceled Continuity of Care 07/10/2024 07/10/2025 6 6 Reason for Visit * Reason Onset Date Comments Call Back Request 07/10/2024 Encounter Details Date Type Department Care Team ([facility] st Contact Info) Description 07/10/2024 Telephone [facility] MEDICINE [address] [place], [place] [phone] Hallie Mcclendon MD [address] [place], [place] [phone] Call Back Request Social History Tobacco Use [...] month with the last one being at [facility], discharged on 07/09/2024. Pt was seen for [...] - 07/10/2024 11:19 AM EDT TC from [place] with [facility] requesting a call back regarding pt medication. Contact Jenae at [phone] documented in this encounter Plan of Treatment [...] documented as of this encounter Care Teams Job Coach/Job Developer Relationship Specialty Start Date End Date Hallie Mcclendon MD [address] [place] [phone] PCP - General Family Medicine 03/13/18 [facility] 07/05/19 documented as of this encounter
== END 2025-03-11 11:54 | disposition home or self-care (01) ==
LOC: HO.HUSH 11:35
PROVIDERS: PCP Family Medicine; Visit Provider Urology
DX: C61 Malignant neoplasm of prostate (principal); Z19.1 Hormone sensitive malignancy status

== ENCOUNTER → 2025-03-11 11:35 | Outpatient (BNVA) | payer OTHER, SELFPAY | PROVIDERS: PCP Family Medicine; Visit Provider Urology | DX: C61 Malignant neoplasm of prostate (principal); Z19.1 Hormone sensitive malignancy status | CPT/HCPCS: 96402; J9217 ==